=== PATIENT | female | born 1950 | race Caucasian/White ===

== ENCOUNTER 2016-07-12 10:20 | Emergency (ER) | payer OTHER ==
[2016-07-12 10:38] VITALS: PULSE 64; RESP 18
[2016-07-12] MEDS ORDERED: MORPHINE SULFATE 4 MG/ML SYRINGE IVP STA (11:42)
[2016-07-12] MEDS ORDERED: DIAZEPAM 5 MG TAB PO STA (11:42)
[2016-07-12 12:28] LABS: Basophils # (A) 0.1 k/uL (0-0.2); Basophils % (A) 1 %; CH 29.1; Eosinophils # (A) 0.1 k/uL (0-0.7); Eosinophils % (A) 1 %; HCT 41.9 % (34.0-46.0); HDW 2.85; HGB 12.8 gm/dL (11.4-16.0); Hypochromasia Slight; Luc # (Auto) 0.19; Luc % (Auto) 2; Lymphocytes # (A) 1.3 k/uL (1.0-4.8); Lymphocytes % (A) 12 %; MCH 28.9 pg (25.0-35.0); MCHC 30.6 g/dL (31.0-37.0); MCV 94.3 fL (80.0-100.0); Mean Platelet Volume 8.8; Monocytes # (A) 0.5 k/uL (0-1.0); Monocytes % (A) 4 %; Neutrophils # (A) 8.4 k/uL (1.3-7.7); Neutrophils % (A) 80 %; RBC 4.44 m/uL (3.80-5.40); RDW 15.1 % (11.5-15.5); WBC 10.6 k/uL (3.8-10.6); WBC (Perox) 9.88
[2016-07-12 12:43] LABS: Calcium 8.5 mg/dL (8.4-10.2); Potassium 5.6 mmol/L (3.5-5.1)
[2016-07-12] MEDS ORDERED: SODIUM CHLORIDE 0.9% 1,000 ML IV ONE (13:06)
--- NOTE | 2016-07-12 13:08 | XR ---
EXAM TYPE: LUMBAR SPINE X RAY SERIES COMPARISON: NONE HISTORY: Lower back pain TECHNIQUE: 3 views are submitted. FINDINGS: Alignment is anatomic. The pedicles are intact. The transverse processes are intact. There is no s pondylolysis or spondylolisthesis. Hypertrophic and degenerative change of the spine is seen at mult iple levels with vacuum disc. Slight curvature of the spine noted. IMPRESSION: 1. Severe multilevel degenerative disc disease.
--- NOTE | 2016-07-12 14:09 | CT ---
EXAMINATION TYPE: CT abdomen pelvis wo con DATE OF EXAM: 07/12/2016 1:54 PM HISTORY: Left flank pain R/O stone CT DLP: 1505 mGycm. Automated Exposure Control for Dose Reduction was Utilized. TECHNIQUE: CT scan of the abdomen and pelvis is performed without oral or IV contrast. COMPARISON: NONE FINDINGS: Within the limitations of a non-contrast study, the following observations are made. LUNG BASES: Dependent atelectatic change in both lung bases is present. LIVER/GB: No significant abnormality is appreciated. PANCREAS: No significant abnormality is seen. SPLEEN: No significant abnormality is seen. ADRENALS: No significant abnormality is seen. KIDNEYS: No renal stones or hydronephrosis is evident bilaterally. No intraluminal calculus in the bl adder is seen. BOWEL: Evaluation bowel is suboptimal due to lack of enteric contrast. There are some diverticula sca ttered throughout the colon. There is no CT evidence for acute diverticulitis. No suspicious small or large bowel dilatation is present. GENITAL ORGANS: No gross abnormality seen. LYMPH NODES: No greater than 1cm abdominal or pelvic lymph nodes are appreciated. OSSEOUS STRUCTURES: There is multilevel spurring in the thoracolumbar spine. There is multilevel vacu um disc phenomenon and disc space narrowing in the lumbar spine. OTHER: There is mild to moderate diffuse subcutaneous fluid in the anterior abdominal wall with mild skin thickening inferiorly, this may reflect product of patient's large body habitus, cellulitis shou ld be excluded clinically. IMPRESSION: No renal stones or hydronephrosis is seen bilaterally. No significant acute finding is se en to account for patient's symptoms on this study.
[2016-07-12 15:15] LABS: Calcium 7.8 mg/dL (8.4-10.2); Potassium 5.2 mmol/L (3.5-5.1)
--- NOTE | 2016-07-12 15:29 | ED ---
General Adult HPI - General Chief complaint: Back Pain/Injury Stated complaint: back pain Time Seen by Provider: 07/12/16 11:22 Source: patient, family, RN notes reviewed Mode of arrival: wheelchair Limitations: no limitations - History of Present Illness Initial comments: 65-year-old female presenting for left flank pain. Patient states that the symptoms past week and they seem to be worsening. She denies any fevers or chills. She denies any urinary complaints. She denies any history of kidney stones. She denies any chest pain or shortness of breath. She states she has tried some NSAIDs without relief of the pain. She denies any fall or injury. She does states she's had some diarrhea for the past several days as well. She denies any nausea or vomiting. - Related Data Home Medications Medication Instructions Recorded Confirmed Ferrous Sulfate [Feosol] 325 mg PO BID 07/14/14 07/12/16 Ranitidine HCl 150 mg PO BID 07/14/14 07/12/16 metFORMIN HCL 1,000 mg PO BID 07/14/14 07/12/16 Atorvastatin [Lipitor] 40 mg PO HS 09/28/15 07/12/16 Amiodarone [Cordarone] 200 mg PO DAILY 10/28/15 07/12/16 Nystatin 100,000Unit/gm Cream 1 applic TOPICAL BID 02/10/16 07/12/16 [Mycostatin Cream] Budesonide/Formoterol Fumarate 2 puff INHALATION RT-DAILY 04/02/16 07/12/16 [Symbicort 160-4.5 Mcg Inhaler] Insulin Glargine [Lantus] 40 unit SQ HS 04/02/16 07/12/16 Insulin Glulisine [Apidra Solostar] 8 unit SQ TID-W/MEALS 04/02/16 07/12/16 Lisinopril [Zestril] 5 mg PO DAILY 04/02/16 07/12/16 Loratadine [Claritin] 10 mg PO DAILY 04/02/16 07/12/16 Acetaminophen [Tylenol] 100 mg PO BID PRN 07/12/16 07/12/16 Furosemide [Lasix] 20 mg PO DAILY 07/12/16 07/12/16 Loperamide [Imodium] 2 mg PO DAILY PRN 07/12/16 07/12/16 Potassium Chloride ER [K-Dur 20] 20 meq PO DAILY 07/12/16 07/12/16 Warfarin [Coumadin] 3.75 mg PO HS 07/12/16 07/12/16 Previous Rx's Medication Instructions Recorded Metoprolol Tartrate [Lopressor] 50 mg PO BID #60 tab 10/08/15 Spironolactone [Aldactone] 25 mg PO DAILY #30 tab 10/08/15 Diazepam [Valium] 5 mg PO BID PRN #8 tab 07/12/16 HYDROcodone/APAP 5-325MG [[place] 1 tab PO Q6HR PRN #12 tab 07/12/16 5-325] Allergies Allergy/AdvReac Type Severity Reaction Status Date / Time No Known Allergies Allergy Verified 07/12/16 11:50 Review of Systems ROS Statement: Those systems with pertinent positive or pertinent negative responses have been documented in the HPI. ROS Other: All systems not noted in ROS Statement are negative. Past Medical History Past Medical History: Atrial Fibrillation, Asthma, Heart Failure, COPD, Diabetes Mellitus, GERD/Reflux, Hyperlipidemia, Hypertension, Pneumonia, Sleep Apnea/CPAP/BIPAP Additional Past Medical History / Comment(s): Unable to tolerate CPAP MACHINE, past acute respiratory failure, bronchitis, home o2 at 3L/NC at nite and if napping, cardiomyopathy, past hx Afib-cardioverted to NSR, IDDM type II, R upper extremity cellulitis now healed. History of Any Multi-Drug Resistant Organisms: None Reported Past Surgical History: Appendectomy, Cholecystectomy, Heart Catheterization Additional Past Surgical History / Comment(s): 11/03/15 TIMOTHY with cardioversion, cardiac cath, ROSANGELA CATARACTS Past Anesthesia/Blood Transfusion Reactions: No Reported Reaction Past Psychological History: No Psychological Hx Reported Additional Psychological History / Comment(s): PT LIVES AT [facility] IN [place],USES A WALKER WHEN OUTSIDE OF HER APT.STATED WANTED TO TALK TO MATERIAL EXPEDITER TO SEE IF SHE COULD GET digital scale. Pt does not drive. She gets to appts by daughter taking or using [employer] bus. She cooks and manages her own medication. She has home O2 and a glucose monitor which is not currently working due to battery depletion. Smoking Status: Never smoker Past Alcohol Use History: None Reported Additional Past Alcohol Use History / Comment(s): SECOND HAND SMOKE EXPOSURE ALL HER LIFE Past Drug Use History: None Reported - Past Family History Mother Family Medical History: Cancer Additional Family Medical History / Comment(s): SKIN AND LUNG CANCER "MESOTHELIOMA" Father Family Medical History: CVA/TIA General Exam - General Exam Comments Initial Comments: General: Awake and Alert. No acute distress. Does not appear acutely ill. Eyes: BEATRIZ, EOM intact. No nystagmus. No scleral icterus. HENT: Atraumatic, normocephalic. Mucous membranes moist. Trachea midline. Neck: The neck is supple, there is no tenderness or JVD. Cardiovascular: Regular rate and rhythm. No murmur, rub, or gallop is appreciated. Distal pulses intact. Respiratory: Lungs are clear to auscultation bilaterally. No wheezes, rales, rhonchi. No respiratory distress. Gastrointestinal: Soft, Nontender. No rebound or guarding. Non-distended. No masses or organomegaly noted. No CVA tenderness. Musculoskeletal: Tenderness over left flank left lower back. There is some spasm associated. Otherwise MSK exam with no tenderness. Normal ROM. No gross deformity. No strength deficits. Neurological: A&Ox3. CN II-XII grossly intact, There are no obvious motor or sensory deficits. Coordination appears grossly intact. Speech is normal. Skin: Skin is warm and dry and no rashes or lesions are noted. Psychiatric: Cooperative, appropriate mood & affect, normal judgment. Limitations: no limitations Course Vital Signs 07/12/16 07/12/16 10:34 15:40 Temperature 98.5 F 97.1 F L Pulse Rate 64 64 Respiratory 18 18 Rate Blood Pressure 124/60 128/71 O2 Sat by Pulse 93 L 95 Oximetry Medical Decision Making - Medical Decision Making 65-year-old female presenting for left flank and back pain. Exam consistent with likely musculoskeletal back pain. Given age and risk factors lab work ordered. Lumbar x-ray with chronic degenerative changes but no acute fractures. Lab work showing stable CBC. However BMP with multiple abnormalities including hyperkalemia and evidence of DOMO. Likely dehydration secondary to recent diarrhea. IV fluids ordered. Discussed further patient states she is on a potassium supplement. Repeat lab work performed after fluids with improved renal function and improved hyperkalemia. He is able to tolerate by mouth fluids without issue. CT abdomen and pelvis no acute process. Patient reevaluated and feeling improved after medications. Updated on results and imaging. Discussed elevated potassium and renal function, but improving trend at this time. Discussed staying well-hydrated. Discussed close follow- up with PCP for repeat lab testing within the next 2 days. Discussed stopping her potassium replacement at this time. As concerning signs symptoms for immediate return to the ED. patient is agreeable with plan and discharge home. - Lab Data Result diagrams: 07/12/16 12:10 07/12/16 14:52 Lab Results 07/12/16 07/12/16 07/12/16 Range/Units 12:10 12:10 14:52 WBC 10.6 (3.8-10.6) k/uL RBC 4.44 (3.80-5.40) m/uL Hgb 12.8 (11.4-16.0) gm/dL Hct 41.9 (34.0-46.0) % MCV 94.3 (80.0-100.0) fL MCH 28.9 (25.0-35.0) pg MCHC 30.6 L (31.0-37.0) g/dL RDW 15.1 (11.5-15.5) % Plt Count 215 (150-450) k/uL Neutrophils % 80 % Lymphocytes % 12 % Monocytes % 4 % Eosinophils % 1 % Basophils % 1 % Neutrophils # 8.4 H (1.3-7.7) k/uL Lymphocytes # 1.3 (1.0-4.8) k/uL Monocytes # 0.5 (0-1.0) k/uL Eosinophils # 0.1 (0-0.7) k/uL Basophils # 0.1 (0-0.2) k/uL Hypochromasia Slight Sodium 142 142 (137-145) mmol/L Potassium 5.6 H 5.2 H (3.5-5.1) mmol/L Chloride 108 H 112 H (98-107) mmol/L Carbon Dioxide 23 21 L (22-30) mmol/L Anion Gap 11 9 mmol/L BUN 44 H 40 H (7-17) mg/dL Creatinine 1.26 H 1.12 H (0.52-1.04) mg/dL Est GFR (MDRD) Af Amer 52 60 (>60 ml/min/1.73 sqM) Est GFR (MDRD) Non-Af 43 49 (>60 ml/min/1.73 sqM) Glucose 174 H 121 H (74-99) mg/dL Calcium 8.5 7.8 L (8.4-10.2) mg/dL - Radiology Data Radiology results: report reviewed, image reviewed Disposition Clinical Impression: Left flank pain, Diarrhea, Dehydration Disposition: HOME SELF-CARE Condition: Stable Instructions: Acute Low Back Pain (ED), Dehydration (ED), Acute Diarrhea (ED) Additional Instructions: Please follow up with your doctor in the next 3 days to repeat your kidney function and electrolytes. Make sure you drink plenty of fluids to stay well hydrated in the setting of your diarrhea. Please do not take your potassium tablets until you repeat your labs with your doctor. Prescriptions: Diazepam [Valium] 5 mg PO BID PRN #8 tab PRN Reason: back spasm HYDROcodone/APAP 5-325MG [[place] 5-325] 1 tab PO Q6HR PRN #12 tab PRN Reason: Pain Referrals: Dontae Quan DO [Primary Care Provider] - 1-2 days Time of Disposition: 15:28
[2016-07-12 15:42] VITALS: BP 128/71; TEMP 97.1
== END 2016-07-12 15:40 | disposition home or self-care (01) ==
LOC: EC 10:20
DX: E86.0 Dehydration (principal); R10.9 Unspecified abdominal pain; R19.7 Diarrhea, unspecified; I48.91 Unspecified atrial fibrillation; J45.909 Unspecified asthma, uncomplicated; I11.0 Hypertensive heart disease with heart failure; I50.9 Heart failure, unspecified; E11.9 Type 2 diabetes mellitus without complications; J44.9 Chronic obstructive pulmonary disease, unspecified; K21.9 Gastro-esophageal reflux disease without esophagitis; Z90.49 Acquired absence of other specified parts of digestive tract; Z79.4 Long term (current) use of insulin; Z79.01 Long term (current) use of anticoagulants; Z79.51 Long term (current) use of inhaled steroids; Z79.899 Other long term (current) drug therapy
CPT/HCPCS: 36415; 80048; 85025; 72100; 74176; 99284; 96374; J2270

== ENCOUNTER 2016-07-15 17:28 | Inpatient (IN) | payer OTHER ==
[2016-07-15] MEDS ORDERED: IPRATROPIUM-ALBUTEROL 3 ML NEB INHALATION STA (17:35)
--- NOTE | 2016-07-15 18:04 | ED ---
General Adult HPI - General Chief complaint: Shortness of Breath Stated complaint: tito, back pain Time Seen by Provider: 07/15/16 17:35 Source: patient Mode of arrival: wheelchair Limitations: no limitations - History of Present Illness Initial comments: This is a 65-year-old female ER for evaluation. The patient was assisted for evaluation of shortness of breath severe shortness of breath. Patient was recently in ER for chest pain. Patient has significant medical history of breathing disease including heart disease and COPD. Patient has no medications at all at this time. No travel history no sick contacts no fevers. She has had increased cough is having increased congestion does have increased pain in her back. - Related Data Home Medications Medication Instructions Recorded Confirmed Ferrous Sulfate [Feosol] 325 mg PO BID 07/14/14 07/15/16 Ranitidine HCl 150 mg PO BID 07/14/14 07/15/16 metFORMIN HCL 1,000 mg PO BID 07/14/14 07/15/16 Atorvastatin [Lipitor] 40 mg PO HS 09/28/15 07/15/16 Amiodarone [Cordarone] 200 mg PO DAILY 10/28/15 07/15/16 Nystatin 100,000Unit/gm Cream 1 applic TOPICAL BID 02/10/16 07/15/16 [Mycostatin Cream] Budesonide/Formoterol Fumarate 2 puff INHALATION RT-DAILY 04/02/16 07/15/16 [Symbicort 160-4.5 Mcg Inhaler] Insulin Glargine [Lantus] 40 unit SQ HS 04/02/16 07/15/16 Insulin Glulisine [Apidra Solostar] 8 unit SQ TID-W/MEALS 04/02/16 07/15/16 Lisinopril [Zestril] 5 mg PO DAILY 04/02/16 07/15/16 Loratadine [Claritin] 10 mg PO DAILY 04/02/16 07/15/16 Acetaminophen [Tylenol] 100 mg PO BID PRN 07/12/16 07/15/16 Furosemide [Lasix] 20 mg PO DAILY 07/12/16 07/15/16 Loperamide [Imodium] 2 mg PO DAILY PRN 07/12/16 07/15/16 Potassium Chloride ER [K-Dur 20] 20 meq PO DAILY 07/12/16 07/15/16 Warfarin [Coumadin] 3.75 mg PO HS 07/12/16 07/15/16 Previous Rx's Medication Instructions Recorded Metoprolol Tartrate [Lopressor] 50 mg PO BID #60 tab 10/08/15 Spironolactone [Aldactone] 25 mg PO DAILY #30 tab 10/08/15 Diazepam [Valium] 5 mg PO BID PRN #8 tab 07/12/16 HYDROcodone/APAP 5-325MG [Jacob 1 tab PO Q6HR PRN #12 tab 07/12/16 5-325] Allergies Allergy/AdvReac Type Severity Reaction Status Date / Time No Known Allergies Allergy Verified 07/15/16 17:33 Review of Systems ROS Statement: Those systems with pertinent positive or pertinent negative responses have been documented in the HPI. ROS Other: All systems not noted in ROS Statement are negative. Past Medical History Past Medical History: Atrial Fibrillation, Asthma, Heart Failure, COPD, Diabetes Mellitus, GERD/Reflux, Hyperlipidemia, Hypertension, Pneumonia, Sleep Apnea/CPAP/BIPAP Additional Past Medical History / Comment(s): Unable to tolerate CPAP MACHINE, past acute respiratory failure, bronchitis, home o2 at 3L/NC at nite and if napping, cardiomyopathy, past hx Afib-cardioverted to NSR, IDDM type II, R upper extremity cellulitis now healed. History of Any Multi-Drug Resistant Organisms: None Reported Past Surgical History: Appendectomy, Cholecystectomy, Heart Catheterization Additional Past Surgical History / Comment(s): 11/03/15 TIMOTHY with cardioversion, cardiac cath, ROSANGELA CATARACTS Past Anesthesia/Blood Transfusion Reactions: No Reported Reaction Past Psychological History: No Psychological Hx Reported Additional Psychological History / Comment(s): PT LIVES AT [facility] IN [place],USES A WALKER WHEN OUTSIDE OF HER APT.STATED WANTED TO TALK TO SHANK ARCHER TO SEE IF SHE COULD GET digital scale. Pt does not drive. She gets to appts by daughter taking or using [employer] bus. She cooks and manages her own medication. She has home O2 and a glucose monitor which is not currently working due to battery depletion. Smoking Status: Never smoker Past Alcohol Use History: None Reported Additional Past Alcohol Use History / Comment(s): SECOND HAND SMOKE EXPOSURE ALL HER LIFE Past Drug Use History: None Reported - Past Family History Mother Family Medical History: Cancer Additional Family Medical History / Comment(s): SKIN AND LUNG CANCER "MESOTHELIOMA" Father Family Medical History: CVA/TIA General Exam Limitations: no limitations General appearance: alert, in no apparent distress, obese Head exam: Present: atraumatic, normocephalic, normal inspection Eye exam: Present: normal appearance, PERRL, EOMI. Absent: scleral icterus, conjunctival injection, periorbital swelling ENT exam: Present: normal exam, mucous membranes moist Neck exam: Present: normal inspection. Absent: tenderness, meningismus, lymphadenopathy Respiratory exam: Present: normal lung sounds bilaterally, respiratory distress , wheezes, rales, accessory muscle use, decreased breath sounds, prolonged expiratory. Absent: rhonchi, stridor Cardiovascular Exam: Present: regular rate, normal rhythm, normal heart sounds. Absent: systolic murmur, diastolic murmur, rubs, gallop, clicks GI/Abdominal exam: Present: soft, normal bowel sounds. Absent: distended, tenderness, guarding, rebound, rigid Extremities exam: Present: normal inspection, full ROM, normal capillary refill. Absent: tenderness, pedal edema, joint swelling, calf tenderness Back exam: Present: normal inspection Neurological exam: Present: alert, oriented X3, CN II-XII intact Psychiatric exam: Present: normal affect, normal mood Skin exam: Present: warm, dry, intact, normal color. Absent: rash Course Vital Signs 07/15/16 07/15/16 07/15/16 17:31 18:20 18:30 Temperature 98.4 F Pulse Rate 69 68 70 Respiratory 14 Rate Blood Pressure 129/62 O2 Sat by Pulse 93 L Oximetry - Reevaluation(s) Reevaluation #1: 07/15/16 18:47 Patient does have improvement after prolonged breathing treatment EKG Findings - EKG Comments: EKG Findings:: EKG shows normal sinus rhythm rate 67, ND 160, QRS 122, QTc 460 Medical Decision Making - Medical Decision Making 65 female ER for evaluation shortness of breath. Increased cough and congestion. Exertional dyspnea. History of CHF history of COPD hypoxic here in the emergency room. Patient did improve with breathing treatment will be made for continued breathing treatments and further evaluation - Lab Data Result diagrams: 07/15/16 18:25 Lab Results 07/15/16 Range/Units 18:25 WBC 8.3 (3.8-10.6) k/uL RBC 4.40 (3.80-5.40) m/uL Hgb 12.6 (11.4-16.0) gm/dL Hct 40.5 (34.0-46.0) % MCV 92.2 (80.0-100.0) fL MCH 28.6 (25.0-35.0) pg MCHC 31.0 (31.0-37.0) g/dL RDW 14.8 (11.5-15.5) % Plt Count 240 (150-450) k/uL Neutrophils % 79 % Lymphocytes % 12 % Monocytes % 5 % Eosinophils % 2 % Basophils % 1 % Neutrophils # 6.5 (1.3-7.7) k/uL Lymphocytes # 1.0 (1.0-4.8) k/uL Monocytes # 0.4 (0-1.0) k/uL Eosinophils # 0.2 (0-0.7) k/uL Basophils # 0.0 (0-0.2) k/uL Hypochromasia Moderate - Radiology Data Radiology results: report reviewed (Chest x-ray shows no significant disease), image reviewed Critical Care Time Critical Care Time: Yes Total Critical Care Time: 31 Disposition Clinical Impression: Acute exacerbation of chronic obstructive airways disease, Acute pulmonary edema, Diabetes, Congestive heart failure, Back pain Disposition: ADMITTED IP TO THIS [facility] Condition: Fair Referrals: Dontae Quan DO [Primary Care Provider] - 1-2 days
[2016-07-15 18:34] LABS: Basophils % (A) 1 %; CH 28.6; CHCM 31.1; Eosinophils # (A) 0.2 k/uL (0-0.7); Eosinophils % (A) 2 %; HCT 40.5 % (34.0-46.0); HDW 2.98; HGB 12.6 gm/dL (11.4-16.0); Hypochromasia Moderate; Luc # (Auto) 0.12; Luc % (Auto) 2; Lymphocytes % (A) 12 %; MCH 28.6 pg (25.0-35.0); MCV 92.2 fL (80.0-100.0); Mean Platelet Volume 7.6; Monocytes # (A) 0.4 k/uL (0-1.0); Monocytes % (A) 5 %; Neutrophils # (A) 6.5 k/uL (1.3-7.7); Neutrophils % (A) 79 %; RDW 14.8 % (11.5-15.5); WBC 8.3 k/uL (3.8-10.6)
[2016-07-15] MEDS ORDERED: MORPHINE SULFATE 4 MG/ML SYRINGE IVP STA (18:44)
[2016-07-15] MEDS ORDERED: MORPHINE SULFATE 4 MG/ML SYRINGE IVP PRN (18:44)
[2016-07-15] MEDS ORDERED: methylPREDNISolone SOD SUCCI 125 MG/2 ML VIAL IV STA (18:44)
[2016-07-15 18:45] LABS: INR 2.3 (<1.1); Partial Thromboplastin Time 36.1 sec (22.0-30.0); Prothrombin Time 22.5 sec (9.0-12.0)
[2016-07-15 18:51] LABS: ALT 38 U/L (9-52); AST 36 U/L (14-36); Alkaline Phosphatase 109 U/L (38-126); Anion Gap 8 mmol/L; Blood Urea Nitrogen 23 mg/dL (7-17); Carbon Dioxide 26 mmol/L (22-30); Chloride 107 mmol/L (98-107); Creatine Kinase 384 U/L (30-135); Glucose 113 mg/dL (74-99); Magnesium 1.6 mg/dL (1.6-2.3); Non-African American GFR(MDRD) 56 (>60 ml/min/1.73 sqM); Potassium 5.5 mmol/L (3.5-5.1); Sodium 141 mmol/L (137-145); Total Bilirubin 0.7 mg/dL (0.2-1.3); Total Protein 6.3 g/dL (6.3-8.2)
[2016-07-15] MEDS: IPRATROPIUM-ALBUTEROL 3 ML NEB INHALATION SCH (18:51)
[2016-07-15 19:03] LABS: Troponin I <0.012 ng/mL (0.000-0.034)
[2016-07-15 19:06] LABS: Creatine Kinase MB 4.6 ng/mL (0.0-2.4)
--- NOTE | 2016-07-15 19:21 | XR ---
EXAMINATION TYPE: XR chest 2V DATE OF EXAM: 07/15/2016 7:14 PM COMPARISON: Prior chest x-ray four March 2016 HISTORY: Difficulty breathing, shortness of breath TECHNIQUE: Frontal and lateral views of the chest are obtained. FINDINGS: The heart is enlarged. Central vascularity and interstitium are increased. No pneumothorax or sizable effusion. IMPRESSION: Correlate for congestive heart failure
[2016-07-15] MEDS ORDERED: IPRATROPIUM-ALBUTEROL 3 ML NEB INHALATION PRN (20:19)
[2016-07-15 20:55] LABS: Glucose,Whole Blood 121 mg/dL (75-99)
[2016-07-16] MEDS: methylPREDNISolone SOD SUCCI 125 MG/2 ML VIAL IV SCH ×4 (00:39→17:23)
[2016-07-16] MEDS: SODIUM CHLORIDE 0.9% 1,000 ML IV SCH ×2 (00:40→19:51)
[2016-07-16] MEDS ORDERED: LOPERAMIDE 2 MG CAP PO PRN (06:51)
[2016-07-16] MEDS ORDERED: BACLOFEN 10 MG TAB PO PRN (06:51)
[2016-07-16] MEDS ORDERED: SYMBICORT 160-4.5 MCG INHALER INHALATION PRN (06:51)
[2016-07-16] MEDS ORDERED: ACETAMINOPHEN TAB 500 MG TAB PO PRN (06:51)
[2016-07-16 08:01] LABS: Glucose,Whole Blood 331 mg/dL (75-99)
[2016-07-16] MEDS: METOPROLOL TARTRATE 50 MG TAB PO SCH ×3 (08:47→22:00)
[2016-07-16] MEDS: AMIODARONE 200 MG TAB PO SCH (08:48)
[2016-07-16] MEDS: FUROSEMIDE 10 MG/ML 2 ML VIAL IV SCH ×2 (08:48→21:13)
[2016-07-16] MEDS: FERROUS SULFATE 325 MG TAB PO SCH ×2 (08:48→21:13)
[2016-07-16] MEDS: INSULIN LISPRO (humaLOG) 300 UNIT/3 ML VIAL SQ SCH ×2 (08:48→13:20)
[2016-07-16] MEDS: LORATADINE 10 MG TAB PO SCH (08:48)
[2016-07-16] MEDS: FAMOTIDINE 20 MG TAB PO SCH ×2 (08:48→21:13)
[2016-07-16] MEDS: IPRATROPIUM-ALBUTEROL 3 ML NEB INHALATION SCH ×4 (08:56→19:19)
[2016-07-16] MEDS ORDERED: SPIRONOLACTONE 25 MG TAB PO SCH (09:00)
[2016-07-16] MEDS ORDERED: LISINOPRIL 5 MG TAB PO SCH (09:00)
[2016-07-16 10:10] LABS: ALT 35 U/L (9-52); AST 31 U/L (14-36); Alkaline Phosphatase 113 U/L (38-126); Anion Gap 16 mmol/L; Blood Urea Nitrogen 31 mg/dL (7-17); Calcium 8.4 mg/dL (8.4-10.2); Carbon Dioxide 21 mmol/L (22-30); Chloride 103 mmol/L (98-107); Glucose 364 mg/dL (74-99); Non-African American GFR(MDRD) 56 (>60 ml/min/1.73 sqM); Sodium 140 mmol/L (137-145); Total Bilirubin 0.8 mg/dL (0.2-1.3); Total Protein 7.1 g/dL (6.3-8.2)
[2016-07-16 10:20] LABS: Basophils % (A) 0 %; CH 28.7; CHCM 29.7; Eosinophils % (A) 0 %; HCT 46.1 % (34.0-46.0); HDW 2.92; HGB 13.6 gm/dL (11.4-16.0); Hypochromasia Marked; Luc # (Auto) 0.03; Luc % (Auto) 0; Lymphocytes # (A) 0.5 k/uL (1.0-4.8); Lymphocytes % (A) 6 %; MCH 28.8 pg (25.0-35.0); MCHC 29.6 g/dL (31.0-37.0); Mean Platelet Volume 8.5; Monocytes # (A) 0.1 k/uL (0-1.0); Monocytes % (A) 1 %; Neutrophils # (A) 8.3 k/uL (1.3-7.7); Neutrophils % (A) 92 %; RBC 4.74 m/uL (3.80-5.40); RDW 14.8 % (11.5-15.5); WBC (Perox) 8.93
[2016-07-16 10:21] LABS: MCV 97.3 fL (80.0-100.0)
[2016-07-16 11:25] LABS: Glucose,Whole Blood 356 mg/dL (75-99)
[2016-07-16 11:46] LABS: Glucose,Whole Blood 327 mg/dL (75-99)
[2016-07-16] MEDS ORDERED: NALOXONE 0.4 MG/ML 1 ML VIAL IV PRN (12:10)
[2016-07-16 12:12] LABS: ABG PCO2 66 mmHg (35-45); ABG PH 7.19 (7.35-7.45)
[2016-07-16 12:13] LABS: ABG HCO3 24 mmol/L (21-25); ABG PO2 353 mmHg (83-108); ABG TCO2 26 mmol/L (19-24)
--- NOTE | 2016-07-16 12:23 | P.CNPUL ---
History of Present Illness Consult date: 07/16/16 Reason for consult: dyspnea History of present illness: I was asked to see Alia Nichols on a emergency basis because she was found to be hypoxic and in significant respiratory distress. I saw this patient on the medical surgical floor, fourth floor, and the patient was quite obtunded, lethargic and possibly CO2 narcosis. At the same time she was having prolonged apneas and these were obstructive apneas nontender the patient has severe obstructive sleep apnea with an AHI of 92 and she has been maintained on a BiPAP at a pressure of 22/80 cm of water on outpatient basis. She is also known to have bronchial asthma, valvular heart disease with a bicuspid aortic valve and CHF with an ejection fraction of 45%. Previous cardiac catheterization has shown normal coronaries. The patient is morbidly obese. She has approximately 2 fibrillation and she has been maintained on long-term articulation with warfarin. This patient was hospitalized yesterday because of increased shortness of breath. Apparently she had some increased back pain which restricted her mobility. Based on that, the patient was not taking her Lasix not to make herself go to the bathroom back and forth for urination. She apparently became progressively swollen and furthermore she started having increased dyspnea. She came into the emergency department yesterday for shortness of breath. She had also some increased cough and chest congestion. She was complaining of increased back pain. Her chest x-ray in the emergency department showed some CHF and cardiomegaly and increased central vascularity, her proBNP level was mildly elevated and the first set of cardiac enzyme was negative. The patient was placed on diuresis. The patient was placed on broken dilated and systemic steroids. She was admitted to the medical floor. MO this patient immediately to the intensive care unit. I put on a BiPAP. The blood gases were obtained and ICU showed a pH of 7.19 with a pCO2 of 66 and pO2 of 353 and this was done while the patient being on 100% nonrebreather facemask. Potassium level was noted to be elevated at 6.0. Blood sugars are also elevated at 364. The patient was arousable. Her neurologic exam was nonfocal and the patient was moving all 4 extremities without any limitation. Once left unstimulated, the patient would go back to sleep. Review of Systems ROS unobtainable: due to mental status Past Medical History Past Medical History: Atrial Fibrillation, Asthma, Heart Failure, COPD, Diabetes Mellitus, GERD/Reflux, Hyperlipidemia, Hypertension, Pneumonia, Sleep Apnea/CPAP/BIPAP Additional Past Medical History / Comment(s): Severe obstructive sleep apnea, with an apnea popping index of 92, titrated to a BiPAP pressure of 22/18 yet the patient has not been using her BiPAP machine on a regular basis, morbid obesity, bronchial asthma, approximately 2 fibrillation, bicuspid aortic valve, CHF with an ejection fraction of 45% based on a previous echocardiogram, diabetes mellitus, hyperlipidemia, GE reflux, hypertension, history of cellulitis of the lower extremities patient on the right it has recovered, History of Any Multi-Drug Resistant Organisms: None Reported Past Surgical History: Appendectomy, Cholecystectomy, Heart Catheterization Additional Past Surgical History / Comment(s): 11/03/15 TIMOTHY with cardioversion, cardiac cath, ROSANGELA CATARACTS Past Anesthesia/Blood Transfusion Reactions: No Reported Reaction Past Psychological History: No Psychological Hx Reported Additional Psychological History / Comment(s): PT LIVES AT [facility] IN [place],USES A WALKER WHEN OUTSIDE OF HER APT.STATED WANTED TO TALK TO AUTOPSY PATHOLOGIST TO SEE IF SHE COULD GET digital scale. Pt does not drive. She gets to appts by daughter taking or using [employer] bus. She cooks and manages her own medication. She has home O2 and a glucose monitor which is not currently working due to battery depletion. Smoking Status: Never smoker Past Alcohol Use History: None Reported Additional Past Alcohol Use History / Comment(s): SECOND HAND SMOKE EXPOSURE ALL HER LIFE Past Drug Use History: None Reported - Past Family History Mother Family Medical History: Cancer Additional Family Medical History / Comment(s): SKIN AND LUNG CANCER "MESOTHELIOMA" Father Family Medical History: CVA/TIA Medications and Allergies Home Medications Medication Instructions Recorded Confirmed Type Ferrous Sulfate [Feosol] 325 mg PO BID 07/14/14 07/15/16 History Ranitidine HCl 150 mg PO BID 07/14/14 07/15/16 History metFORMIN HCL 1,000 mg PO BID 07/14/14 07/15/16 History Atorvastatin [Lipitor] 40 mg PO HS 09/28/15 07/15/16 History Amiodarone [Cordarone] 200 mg PO DAILY 10/28/15 07/15/16 History Nystatin 100,000Unit/gm Cream 1 applic TOPICAL BID 02/10/16 07/15/16 History [Mycostatin Cream] Budesonide/Formoterol Fumarate 1 puff INHALATION RT-BID PRN 04/02/16 07/15/16 History [Symbicort 160-4.5 Mcg Inhaler] Insulin Glargine [Lantus] 40 unit SQ HS 04/02/16 07/15/16 History Insulin Glulisine [Apidra Solostar] 8 unit SQ TID-W/MEALS 04/02/16 07/15/16 History Lisinopril [Zestril] 5 mg PO DAILY 04/02/16 07/15/16 History Loratadine [Claritin] 10 mg PO DAILY 04/02/16 07/15/16 History Acetaminophen [Tylenol] 1,000 mg PO BID PRN 07/12/16 07/15/16 History Loperamide [Imodium] 2 mg PO BID PRN 07/12/16 07/15/16 History Warfarin [Coumadin] 3.75 mg PO HS 07/12/16 07/15/16 History Baclofen 10 mg PO Q8H PRN 07/15/16 07/15/16 History Furosemide [Lasix] 40 mg PO BID 07/15/16 07/15/16 History Levothyroxine Sodium [Synthroid] 25 mcg PO DAILY 07/16/16 07/16/16 History Allergies Allergy/AdvReac Type Severity Reaction Status Date / Time No Known Allergies Allergy Verified 07/15/16 19:07 Physical Exam Vitals: Vital Signs Temp Pulse Pulse Resp BP BP Pulse Ox 07/16/16 11:50 98.7 F 79 13 144/88 97 07/16/16 11:40 86 45 H 144/88 99 07/16/16 11:38 92 07/16/16 09:08 72 07/16/16 08:59 72 07/16/16 07:00 97.3 F L 91 18 139/76 91 L 07/15/16 23:00 97.0 F L 74 18 130/70 94 L 07/15/16 20:00 97.9 F 69 18 131/70 92 L 07/15/16 19:38 95 Intake and Output 07/15/16 07/16/16 07/16/16 22:59 06:59 14:59 Intake Total 20 Output Total 250 Balance -230 Intake: Intake, IV Titration 20 Amount Sodium Chloride 0.9% 1, 20 000 ml @ 20 mls/hr IV . Q24H [facility] Rx#:[id number] Output: Urine 250 Other: # Voids 1 1 Weight 125.645 kg 126.099 kg Patient is obtunded, lethargic, arousable. She would go to sleep if left unstimulated. While off the BiPAP machine the patient is having prolonged apneas which are essentially obstructive apneas and the patient obstructive completely while trying to breathe and move her chest wall muscles. She is using her chest wall and abdominal muscles to breathe.Head exam was generally normal. There was no scleral icterus or corneal arcus. Mucous membranes were moist. Neck is supple and the patient is significant crowding of the posterior oropharynx. There is a little neck masses. Lungs sounds are diminished and there is diminished breath sounds bilaterally especially lung bases along with some few scattered external wheeze.Cardiac exam revealed the PMI to be normally situated and sized. The rhythm was regular and no extrasystoles were noted during several minutes of auscultation. The first and second heart sounds were normal and physiologic splitting of the second heart sound was noted. There were no murmurs, rubs, clicks, or gallops. Abdomen is obese and orders cannot be accurately palpated. There is no direct tenderness. No rebound tenderness or guarding. Extremities show trace edema and there is no cyanosis or clubbing at this point. Results - Laboratory Findings CBC and BMP: 07/16/16 09:34 07/16/16 09:34 PT/INR, D-dimer PT 22.5 sec (9.0-12.0) H 07/15/16 18:25 INR 2.3 (<1.1) 07/15/16 18:25 Abnormal lab findings: Abnormal Labs 07/15/16 07/16/16 07/16/16 20:51 07:56 09:34 Hct 46.1 H MCHC 29.6 L Neutrophils # 8.3 H Lymphocytes # 0.5 L Potassium Carbon Dioxide BUN Glucose POC Glucose (mg/dL) 121 H 331 H 07/16/16 07/16/16 07/16/16 09:34 11:13 11:42 Hct MCHC Neutrophils # Lymphocytes # Potassium 6.0 H Carbon Dioxide 21 L BUN 31 H Glucose 364 H POC Glucose (mg/dL) 356 H 327 H - Diagnostic Findings Chest x-ray: image reviewed Assessment and Plan Plan: Assessment 1 acute hypercapnic respiratory failure with CO2 narcosis. This respiratory failure is multifactorial. Predominantly the patient has severe symptomatic obstructive sleep apnea baseline and in addition there is a component of fluid overload probably CHF as the patient's chest x-ray shows increased interstitial markings along with cardiomegaly. Superimposed pneumonia is felt to be less likely at this point although cannot be completely excluded 2 diminished level of consciousness secondary to above 3 severe obstructive sleep apnea with an AHI of 92, noncompliant to BiPAP therapy which is supposed to be at a pressure of 22/80 cm of water 4 morbid obesity 5 normal coronaries 6 proximal atrial fibrillation and patient's cardiac rhythm is sinus and the patient has been fully anticoagulate with warfarin 7 CHF with an ejection fraction of 45% 8 bicuspid aortic valve related to a previous TIMOTHY 9 previous cardioversion following a TIMOTHY to treat atrial fibrillation and the patient has been on amiodarone which has maintained this patient's cardiac rhythm is sinus 10 diabetes mellitus with poorly controlled blood sugars 11 hyperkalemia probably due to hyperglycemia, no EKG changes 12 chronic bronchial asthma 13 remote history of cellulitis of the lower extremities Plan Move the patient immediately to the intensive care unit. Put the patient a BiPAP at a pressure of 22/18 cm of water. Continue the bronchodilators. Continue diuresis. Continue systemic steroids as the patient may have an underlying asthmatic exacerbation addition to CHF. The patient will be placed on an insulin drip for blood sugar control and this will help also with a potassium levels. We'll monitor the patient's case very closely. May ultimately need intubation of the above-mentioned interventions failed to control her situation.
[2016-07-16] MEDS ORDERED: INSULIN REGULAR BOLUS (FROM DRIP BAG) IV PRN ×2 (12:26→12:43)
[2016-07-16] MEDS ORDERED: INSULIN LISPRO (humaLOG) 300 UNIT/3 ML VIAL SQ SCH (12:30)
[2016-07-16 12:33] LABS: Appearance,Urine Cloudy (Clear); Bacteria,Urine Many /hpf; Bilirubin,Urine Negative (Negative); Glucose,Urine (UA) 3+ (Negative); Hyphae Yeast, Urine Rare /hpf; Ketones,Urine Trace (Negative); Leukocyte Esterase,Urine Negative (Negative); Mucus,Urine Rare /hpf; Nitrite,Urine Negative (Negative); Particle Count 81046; Protein,Urine Trace (Negative); RBC,Urine 1 /hpf (0-5); Specific Gravity,Urine 1.009 (1.001-1.035); Squamous Epithelial Cell,Urine <1 /hpf (0-4); UA Billing (MACRO vs. MICRO) MICRO; Urobilinogen,Urine <2.0 mg/dL (<2.0); WBC,Urine 3 /hpf (0-5)
[2016-07-16 12:46] LABS: Magnesium 1.7 mg/dL (1.6-2.3); Phosphorous 5.6 mg/dL (2.5-4.5)
[2016-07-16] MEDS: INSULIN REGULAR 100 UNIT in SODIUM CHLORIDE 0.9% 100 ML IV SCH (13:21)
[2016-07-16 13:23] LABS: Glucose,Whole Blood 385 mg/dL (75-99)
[2016-07-16] MEDS: ENOXAPARIN 40 MG/0.4 ML SYRINGE SQ SCH (13:28)
[2016-07-16 13:44] LABS: Glucose,Whole Blood 368 mg/dL (75-99)
[2016-07-16 14:10] LABS: Glucose,Whole Blood 302 mg/dL (75-99)
[2016-07-16 14:32] LABS: Glucose,Whole Blood 292 mg/dL (75-99)
[2016-07-16 14:44] LABS: Calcium 8.5 mg/dL (8.4-10.2); Potassium 5.6 mmol/L (3.5-5.1)
[2016-07-16 15:13] LABS: Glucose,Whole Blood 280 mg/dL (75-99)
[2016-07-16 15:36] LABS: Glucose,Whole Blood 240 mg/dL (75-99)
[2016-07-16 15:45] LABS: ABG Base Excess -0.4 mmol/L; ABG HCO3 26 mmol/L (21-25); ABG PCO2 60 mmHg (35-45); ABG PH 7.26 (7.35-7.45); ABG PO2 180 mmHg (83-108); ABG TCO2 28 mmol/L (19-24)
[2016-07-16 16:32] LABS: Glucose,Whole Blood 233 mg/dL (75-99)
[2016-07-16] MEDS: PIPERACILLIN-TAZOBACTAM 3.375 GM in DEXTROSE/WATER 1 50ML.BAG IVPB SCH (16:32)
[2016-07-16 17:41] LABS: Glucose,Whole Blood 203 mg/dL (75-99)
[2016-07-16 18:46] LABS: Glucose,Whole Blood 185 mg/dL (75-99)
[2016-07-16] MEDS: FORMOTEROL FUMARATE 20 MCG/2 ML NEBU INHALATION SCH (19:19)
[2016-07-16] MEDS: BUDESONIDE 0.5 MG/2 ML NEBU INHALATION SCH (19:19)
[2016-07-16 20:00] LABS: Glucose,Whole Blood 180 mg/dL (75-99)
[2016-07-16] MEDS ORDERED: INSULIN GLARGINE 100 UNIT/ML 10 ML VIAL SQ SCH (21:00)
[2016-07-16] MEDS: ATORVASTATIN 40 MG TAB PO SCH (21:13)
[2016-07-16] MEDS: WARFARIN 7.5 MG TAB PO SCH (21:14)
[2016-07-16 22:09] LABS: Glucose,Whole Blood 192 mg/dL (75-99)
[2016-07-16 23:23] LABS: Glucose,Whole Blood 173 mg/dL (75-99)
[2016-07-17] MEDS: methylPREDNISolone SOD SUCCI 125 MG/2 ML VIAL IV SCH ×2 (00:28→06:43)
[2016-07-17] MEDS: PIPERACILLIN-TAZOBACTAM 3.375 GM in DEXTROSE/WATER 1 50ML.BAG IVPB SCH ×3 (00:28→16:01)
[2016-07-17 00:40] LABS: Glucose,Whole Blood 155 mg/dL (75-99)
[2016-07-17] MEDS: INSULIN REGULAR 100 UNIT in SODIUM CHLORIDE 0.9% 100 ML IV SCH ×3 (00:41→19:59)
[2016-07-17 02:00] LABS: Glucose,Whole Blood 125 mg/dL (75-99)
[2016-07-17 03:05] LABS: Glucose,Whole Blood 141 mg/dL (75-99)
[2016-07-17 04:05] LABS: Glucose,Whole Blood 134 mg/dL (75-99)
[2016-07-17 05:04] LABS: Basophils % (A) 0 %; CH 28.5; CHCM 30.6; Eosinophils % (A) 0 %; HCT 39.4 % (34.0-46.0); Hypochromasia Moderate; Luc # (Auto) 0.02; Luc % (Auto) 0; Lymphocytes # (A) 0.5 k/uL (1.0-4.8); Lymphocytes % (A) 4 %; MCH 28.6 pg (25.0-35.0); MCHC 30.5 g/dL (31.0-37.0); MCV 93.6 fL (80.0-100.0); Mean Platelet Volume 7.2; Monocytes # (A) 0.3 k/uL (0-1.0); Monocytes % (A) 2 %; Neutrophils # (A) 12.5 k/uL (1.3-7.7); Neutrophils % (A) 94 %; RBC 4.21 m/uL (3.80-5.40); RDW 14.7 % (11.5-15.5); WBC 13.3 k/uL (3.8-10.6); WBC (Perox) 13.99
[2016-07-17 05:07] LABS: INR 2.5 (<1.1); Prothrombin Time 23.7 sec (9.0-12.0)
[2016-07-17 05:09] LABS: Glucose,Whole Blood 152 mg/dL (75-99)
[2016-07-17 05:15] LABS: Anion Gap 9 mmol/L; Blood Urea Nitrogen 39 mg/dL (7-17); Calcium 8.8 mg/dL (8.4-10.2); Carbon Dioxide 26 mmol/L (22-30); Chloride 109 mmol/L (98-107); Glucose 146 mg/dL (74-99); Magnesium 1.9 mg/dL (1.6-2.3); Non-African American GFR(MDRD) 50 (>60 ml/min/1.73 sqM); Phosphorous 3.4 mg/dL (2.5-4.5); Potassium 4.8 mmol/L (3.5-5.1); Sodium 144 mmol/L (137-145)
[2016-07-17] MEDS ORDERED: Magnesium Replacement Protocol 1 EACH MISC MISCELLANE PRN (05:38)
[2016-07-17] MEDS: MAGNESIUM SULFATE-D5W PMX 1 GM in DEXTROSE/WATER 1 100ML.BAG IVPB SCH ×2 (06:01→07:38)
[2016-07-17 06:06] LABS: Glucose,Whole Blood 181 mg/dL (75-99)
[2016-07-17 07:04] LABS: Glucose,Whole Blood 161 mg/dL (75-99)
--- NOTE | 2016-07-17 07:27 | XR ---
EXAMINATION TYPE: XR chest 1V DATE OF EXAM: 07/17/2016 6:40 AM CLINICAL HISTORY: Difficulty breathing progress study. TECHNIQUE: Single AP portable semiupright right view of the chest is obtained. COMPARISON: Chest x-ray from 2 days earlier FINDINGS: Exam is suboptimal due to portable technique and patient's large body habitus. There is pe rsisting cardiomegaly. Diminished visualization left lung base is felt projectional though is subopti magalie evaluated. Right lung remains clear. Improved central vascular congestion is felt present. Osse ous structures are intact. IMPRESSION: Suboptimal study, there is cardiomegaly with suspected improving central vascular congest ion and no definitive new focal infiltrate present.
[2016-07-17] MEDS: IPRATROPIUM-ALBUTEROL 3 ML NEB INHALATION SCH ×4 (08:00→19:55)
[2016-07-17] MEDS: FORMOTEROL FUMARATE 20 MCG/2 ML NEBU INHALATION SCH ×2 (08:00→19:55)
[2016-07-17] MEDS: BUDESONIDE 0.5 MG/2 ML NEBU INHALATION SCH ×2 (08:00→19:55)
[2016-07-17 08:37] LABS: Glucose,Whole Blood 156 mg/dL (75-99)
[2016-07-17] MEDS: ENOXAPARIN 40 MG/0.4 ML SYRINGE SQ SCH (08:46)
[2016-07-17] MEDS: AMIODARONE 200 MG TAB PO SCH (08:46)
[2016-07-17] MEDS: FUROSEMIDE 10 MG/ML 2 ML VIAL IV SCH ×2 (08:46→20:00)
[2016-07-17] MEDS: FERROUS SULFATE 325 MG TAB PO SCH ×2 (08:47→20:45)
[2016-07-17] MEDS: LORATADINE 10 MG TAB PO SCH (08:47)
[2016-07-17] MEDS: METOPROLOL TARTRATE 50 MG TAB PO SCH ×2 (08:47→20:45)
[2016-07-17] MEDS: FAMOTIDINE 20 MG TAB PO SCH (08:47)
[2016-07-17] MEDS ORDERED: methylPREDNISolone SOD SUCCI 125 MG/2 ML VIAL IV SCH (09:01)
[2016-07-17 09:06] LABS: Hemoglobin A1C 7.1 % (4.2-6.1)
[2016-07-17 09:07] LABS: Glucose,Whole Blood 176 mg/dL (75-99)
[2016-07-17 10:02] LABS: Glucose,Whole Blood 208 mg/dL (75-99)
[2016-07-17 11:05] LABS: Glucose,Whole Blood 220 mg/dL (75-99)
--- NOTE | 2016-07-17 11:58 | HP ---
DATE OF ADMISSION: 07/15/2016 This is a 65-year-old female, the patient is a 65 -year-old female came in with complaints of shortness of breath and the patient was ( ). The patient was admitted to the hospital to the ICU probably due to ( ) narcosis. Patient has severe obstructive sleep apnea, uses ( ) BIPAP settings of 22 and 8 cm of water on an outpatient basis, is admitted for acute hypoxic respiratory failure, ( ) heart failure as well, admitted for ( ). The patient today was found to be in CHF exacerbation . Patient has start on IV Lasix. The patient continues to be on BIPAP at this point in time. ( ) respiratory issues and the patient has stopped taking Lasix recently because of restricted mobility. The patient is morbidly obese. Does have significant respiratory lung disease as well and probable obesity hypoventilation syndrome. Pro-BNP level otherwise minimally elevated and chest x-ray did show central venous congestion. The patient was also started on bronchodilators and systemic steroids and may not have much benefit. The patient on exam appears to have rhonchorous breath sounds. The patient is presently, saturating well. On BiPAP I am unable to get much history because the patient is on BIPAP at this time. The other issues being hypokalemia because of which ( ). We will repeat another potassium level and see it if it still elevated, depending on elevation, we will ( ) just Kayexelate or another cocktail regimen for ( ) elevated potassium ( ) insulin calcium gluconate along with Kayexelate. Review of systems unable to obtain because of medical condition. Past medical history significant for atrial fibrillation with severe asthma, congestive heart failure, chronic systolic dysfunction, ( ) ejection fraction of about 45%, hyperlipidemia, hypertension and sleep apnea uses ( ) at home. Past surgical history of appendectomy, cholecystectomy, cardiac catheterization, ( ) TIMOTHY with cardioversion in the past, bilateral cataracts. SOCIAL HISTORY: The patient never a smoker. Denied any alcohol abuse or any drug abuse. FAMILY HISTORY: Mother had cancer, lung cancer ( ). PHYSICAL EXAMINATION: Temperature 98.7, pulse 79, respiratory rate 13, blood pressure 145/82. Saturating at 97% on BIPAP. GENERAL: morbidly obese, patient is arousable, unable to assess orientation. HEENT: Pupils are round and equally reacting to light. EOMI. No scleral icterus. No conjunctival pallor. Normocephalic, atraumatic. No pharyngeal erythema. No thyromegaly. CARDIOVASCULAR: S1 and S2 present. Unable to assess jugular venous distention ( ), the patient is on BIPAP. PULMONARY: Lung examination revealed bilateral rhonchorous breath sounds, ( ) bilateral lung rick. ABDOMEN: Soft, nontender, nondistended, normoactive bowel sounds. No palpable organomegaly. MUSCULOSKELETAL: No joint swelling or deformity. EXTREMITIES: No cyanosis, clubbing, or pedal edema. NEUROLOGICAL: Unable to assess because of her medical condition, although patient does not appear to have any focal deficits at this point of time. Moving all 4 limbs. Home medications: 1. Ferrous sulfate. 2. Ranitidine. 3. Metformin. 4. Atorvastatin. 5. Amiodarone. 6. Nystatin. 7. Budesonide. 8. Formoterol. 9. Lantus. 10. Lisinopril. 11. Loratadine. 12. Acetaminophen. 13. Loperamide. 14. Coumadin. 15. Baclofen. 16. Lasix. 17. Levothyroxine. ASSESSMENT AND PLAN: 1. Hypercapnic respiratory failure leading to ( ) and metabolic encephalopathy secondary to that. 2. Respiratory failure is multifactorial, the patient will probably ( ) hypoxic ( ). Patient is on BiPAP at this point of time. The patient is on Lasix ( ) acute respiratory failure. 3. Patient is morbidly obese ( ). 4. Pulmonary hypertension ( ) echocardiogram. 5. Toxic metabolic encephalopathy. 6. Obstructive sleep apnea. Continue with BiPAP. 7. Obstructive lung disease. 8. Congestive heart failure, chronic systolic dysfunction with acute exacerbation. 9. Diabetes mellitus type 2. 10. Hyperkalemia. 11. Hyperkalemia management as mentioned above. 12. Bronchial asthma. 13. Morbid obesity. PLAN: As mentioned in the history itself. Continue with respiratory support. Patient is on antibiotics at this point of time. ( ). Antibiotics probably can be discontinued. My suspicion is extremely low for pneumonia. ( ) exacerbation , superimposed on ( ) obstructive lung disease, obstructive sleep apnea and obesity hypoventilation syndrome made her go into severe respiratory failure.
[2016-07-17 12:10] LABS: Glucose,Whole Blood 198 mg/dL (75-99)
--- NOTE | 2016-07-17 13:51 | CDI ---
In responding to this query, please exercise your independent professional judgment. The [facility] Coding Staff and Clinical Documentation Specialists appreciate your assistance in clarifying documentation, maintaining compliance with coding guidelines, accurately documenting patients condition and capturing severity of illness. The fact that a question is asked does not imply that any particular answer is desired or expected. Communication forms are a method of clarifying documentation and are not made part of the Legal Health Record. Thank you in advance for your clarification. Last Revision, June 2015 Kayley Zavaleta [address] [address] Documentation Clarification Form Date: 07/17/2016 1:20:00 PM From: Glendy Lei Admit Date: 07/15/2016 6:45:00 PM Patient Name: Bindu Nichols Visit Number: [id number] Discharge Date: Dr. Anton Azevedo/Gaby Soliz [facility]ENDER-C Asthma is documented in the consult and progress notes. Patient history/risk factors: Asthma, Atrial Fibrillation, Heart failure, COPD, Diabetes mellitus type 2, hypertension, Sleep Apnea/CPAP/BIPAP, Clinical Indicators: ER with severe shortness of breath, increased cough, congestion. Chest x-ray: correlate for CHF Vital Signs on admission: 129/62 69 14 98.4, 93 % RA Other Clinical Indicators: 07/16/16: Patient had mental status changes, was obtunded, lethargic and having prolonged apnea . Treatment: BIPAP (monitor and titrate O2) Solu-Medrol IV (taper) Bronchodilator Lasix IV Zosyn IV In your professional opinion, can you please further specify the following, if known? Chronic Bronchial Asthma With: Acute Exacerbation Status asthmaticus Acute lower respiratory infection COPD (specify with or without exacerbation) Chronic obstructive bronchitis Other, please specify Unable to determine Severity Mild intermittent Mild persistent Moderate persistent Severe persistent Other, please specify Unable to determine Form or Type Cough variant Childhood Exercise induced bronchospasm Extrinsic allergic Idiosyncratic Intrinsic nonallergic Late-onset Mixed Other, please specify Unable to determine Please document in your progress notes in order to capture severity of illness and risk of mortality. FYI: Press F11 to launch patient chart. Place X here if this finding has no clinical significance, is not applicable or if you are not able to provide any additional documentation. MTDD
[2016-07-17 14:22] LABS: Glucose,Whole Blood 280 mg/dL (75-99)
--- NOTE | 2016-07-17 15:28 | P.PN ---
Subjective Principal diagnosis: Acute hypoxic and hypercapnic respiratory failure I was asked to see Alia Nichols on a emergency basis because she was found to be hypoxic and in significant respiratory distress. I saw this patient on the medical surgical floor, fourth floor, and the patient was quite obtunded, lethargic and possibly CO2 narcosis. At the same time she was having prolonged apneas and these were obstructive apneas nontender the patient has severe obstructive sleep apnea with an AHI of 92 and she has been maintained on a BiPAP at a pressure of 22/80 cm of water on outpatient basis. She is also known to have bronchial asthma, valvular heart disease with a bicuspid aortic valve and CHF with an ejection fraction of 45%. Previous cardiac catheterization has shown normal coronaries. The patient is morbidly obese. She has approximately 2 fibrillation and she has been maintained on long-term articulation with warfarin. This patient was hospitalized yesterday because of increased shortness of breath. Apparently she had some increased back pain which restricted her mobility. Based on that, the patient was not taking her Lasix not to make herself go to the bathroom back and forth for urination. She apparently became progressively swollen and furthermore she started having increased dyspnea. She came into the emergency department yesterday for shortness of breath. She had also some increased cough and chest congestion. She was complaining of increased back pain. Her chest x-ray in the emergency department showed some CHF and cardiomegaly and increased central vascularity, her proBNP level was mildly elevated and the first set of cardiac enzyme was negative. The patient was placed on diuresis. The patient was placed on broken dilated and systemic steroids. She was admitted to the medical floor. Moved this patient immediately to the intensive care unit. I put on a BiPAP. The blood gases were obtained and ICU showed a pH of 7.19 with a pCO2 of 66 and pO2 of 353 and this was done while the patient being on 100% nonrebreather facemask. Potassium level was noted to be elevated at 6.0. Blood sugars are also elevated at 364. The patient was arousable. Her neurologic exam was nonfocal and the patient was moving all 4 extremities without any limitation. Once left unstimulated, the patient would go back to sleep. Patient was reevaluated today on 07/17/2016, she seems to be doing quite well. Patient is now on nasal cannula, off BiPAP, and she is sitting in bed, eating, alert oriented 3, in no form of distress. CBC was reviewed ABG from yesterday was reviewed and clearly reflected hypercapnic respiratory failure basic metabolic profile from today was also reviewed showing a bicarb level of 26 hence her hypercapnia is relatively acute and not chronic. Objective - Vital Signs Vital signs: Vital Signs Temp 97.6 F 07/17/16 12:00 Pulse 69 07/17/16 14:00 Resp 17 07/17/16 14:00 BP 114/53 07/17/16 14:00 Pulse Ox 96 07/17/16 14:00 Intake & Output 07/16/16 07/17/16 07/17/16 18:59 06:59 18:59 Intake Total 227.367 287.166 337.024 Output Total 550 940 500 Balance -322.633 -652.834 -162.976 Weight 123 kg Intake: Intake, IV Titration 227.367 287.166 337.024 Amount Insulin Regular 100 unit 77.367 47.166 29.441 In Sodium Chloride 0.9% 100 ml @ Per Protocol IV .Q0M AIDA Rx#:[id number] Insulin Regular 100 unit 17.583 In Sodium Chloride 0.9% 100 ml @ Titrate IV .Q0M A[facility] Rx#:[id number] Magnesium Sulfate-D5w Pmx 100 1 gm In Dextrose/Water 1 100ml.bag @ 100 mls/hr IVPB Q1H A[facility] Rx#: [id number] Piperacillin-Tazobactam 3 50 100.0 50.0 .375 gm In Dextrose/Water 1 50ml.bag @ 12.5 mls/hr IVPB Q8HR AIDA Rx#: [id number] Sodium Chloride 0.9% 1, 100 140 140 000 ml @ 20 mls/hr IV . Q24H AIDA Rx#:[id number] Output: Urine 550 940 500 Other: Voiding Method Indwelling Catheter Indwelling Catheter Indwelling Catheter - Exam Physical Exam: Revealed a 65-year-old female in no distress, obese, sitting in bed eating, on nasal cannula. HEENT:[Neck is supple.] [No neck masses.] [No thyromegaly.] [No JVD.] Chest: [Diminished breath sounds at the bases no crackles or rhonchi or wheezes. ] Cardiac Exam: [Normal S1 and S2, no S3 gallop, no murmur.] Abdomen: [Soft, nontender, no megaly, no rebound, no guarding, normal bowel sounds.] Extremities: [No clubbing, no edema, no cyanosis.] Neurological Exam: [No focal neurologic deficit.] - Labs CBC & Chem 7: 07/17/16 04:09 07/17/16 04:09 Labs: Abnormal Lab Results - Last 24 Hours (Table) 07/16/16 07/16/16 07/16/16 Range/Units 09:34 15:36 15:37 WBC (3.8-10.6) k/uL MCHC (31.0-37.0) g/dL Neutrophils # (1.3-7.7) k/uL Lymphocytes # (1.0-4.8) k/uL PT (9.0-12.0) sec ABG pH 7.26 L (7.35-7.45) ABG pCO2 60 H (35-45) mmHg ABG pO2 180 H (83-108) mmHg ABG HCO3 26 H (21-25) mmol/L ABG Total CO2 28 H (19-24) mmol/L ABG O2 Saturation 99.0 H (94-97) % Chloride (98-107) mmol/L BUN (7-17) mg/dL Creatinine (0.52-1.04) mg/dL Glucose (74-99) mg/dL POC Glucose (mg/dL) 240 H (75-99) mg/dL Hemoglobin A1c 7.1 H (4.2-6.1) % 07/16/16 07/16/16 07/16/16 Range/Units 16:30 17:39 18:44 WBC (3.8-10.6) k/uL MCHC (31.0-37.0) g/dL Neutrophils # (1.3-7.7) k/uL Lymphocytes # (1.0-4.8) k/uL PT (9.0-12.0) sec ABG pH (7.35-7.45) ABG pCO2 (35-45) mmHg ABG pO2 (83-108) mmHg ABG HCO3 (21-25) mmol/L ABG Total CO2 (19-24) mmol/L ABG O2 Saturation (94-97) % Chloride (98-107) mmol/L BUN (7-17) mg/dL Creatinine (0.52-1.04) mg/dL Glucose (74-99) mg/dL POC Glucose (mg/dL) 233 H 203 H 185 H (75-99) mg/dL Hemoglobin A1c (4.2-6.1) % 07/16/16 07/16/16 07/16/16 Range/Units 19:58 22:07 23:19 WBC (3.8-10.6) k/uL MCHC (31.0-37.0) g/dL Neutrophils # (1.3-7.7) k/uL Lymphocytes # (1.0-4.8) k/uL PT (9.0-12.0) sec ABG pH (7.35-7.45) ABG pCO2 (35-45) mmHg ABG pO2 (83-108) mmHg ABG HCO3 (21-25) mmol/L ABG Total CO2 (19-24) mmol/L ABG O2 Saturation (94-97) % Chloride (98-107) mmol/L BUN (7-17) mg/dL Creatinine (0.52-1.04) mg/dL Glucose (74-99) mg/dL POC Glucose (mg/dL) 180 H 192 H 173 H (75-99) mg/dL Hemoglobin A1c (4.2-6.1) % 07/17/16 07/17/16 07/17/16 Range/Units 00:39 01:59 03:03 WBC (3.8-10.6) k/uL MCHC (31.0-37.0) g/dL Neutrophils # (1.3-7.7) k/uL Lymphocytes # (1.0-4.8) k/uL PT (9.0-12.0) sec ABG pH (7.35-7.45) ABG pCO2 (35-45) mmHg ABG pO2 (83-108) mmHg ABG HCO3 (21-25) mmol/L ABG Total CO2 (19-24) mmol/L ABG O2 Saturation (94-97) % Chloride (98-107) mmol/L BUN (7-17) mg/dL Creatinine (0.52-1.04) mg/dL Glucose (74-99) mg/dL POC Glucose (mg/dL) 155 H 125 H 141 H (75-99) mg/dL Hemoglobin A1c (4.2-6.1) % 07/17/16 07/17/16 07/17/16 Range/Units 04:02 04:09 04:09 WBC 13.3 H (3.8-10.6) k/uL MCHC 30.5 L (31.0-37.0) g/dL Neutrophils # 12.5 H (1.3-7.7) k/uL Lymphocytes # 0.5 L (1.0-4.8) k/uL PT 23.7 H (9.0-12.0) sec ABG pH (7.35-7.45) ABG pCO2 (35-45) mmHg ABG pO2 (83-108) mmHg ABG HCO3 (21-25) mmol/L ABG Total CO2 (19-24) mmol/L ABG O2 Saturation (94-97) % Chloride (98-107) mmol/L BUN (7-17) mg/dL Creatinine (0.52-1.04) mg/dL Glucose (74-99) mg/dL POC Glucose (mg/dL) 134 H (75-99) mg/dL Hemoglobin A1c (4.2-6.1) % 07/17/16 07/17/16 07/17/16 Range/Units 04:09 05:06 06:04 WBC (3.8-10.6) k/uL MCHC (31.0-37.0) g/dL Neutrophils # (1.3-7.7) k/uL Lymphocytes # (1.0-4.8) k/uL PT (9.0-12.0) sec ABG pH (7.35-7.45) ABG pCO2 (35-45) mmHg ABG pO2 (83-108) mmHg ABG HCO3 (21-25) mmol/L ABG Total CO2 (19-24) mmol/L ABG O2 Saturation (94-97) % Chloride 109 H (98-107) mmol/L BUN 39 H (7-17) mg/dL Creatinine 1.10 H (0.52-1.04) mg/dL Glucose 146 H (74-99) mg/dL POC Glucose (mg/dL) 152 H 181 H (75-99) mg/dL Hemoglobin A1c (4.2-6.1) % 07/17/16 07/17/16 07/17/16 Range/Units 07:03 08:24 09:06 WBC (3.8-10.6) k/uL MCHC (31.0-37.0) g/dL Neutrophils # (1.3-7.7) k/uL Lymphocytes # (1.0-4.8) k/uL PT (9.0-12.0) sec ABG pH (7.35-7.45) ABG pCO2 (35-45) mmHg ABG pO2 (83-108) mmHg ABG HCO3 (21-25) mmol/L ABG Total CO2 (19-24) mmol/L ABG O2 Saturation (94-97) % Chloride (98-107) mmol/L BUN (7-17) mg/dL Creatinine (0.52-1.04) mg/dL Glucose (74-99) mg/dL POC Glucose (mg/dL) 161 H 156 H 176 H (75-99) mg/dL Hemoglobin A1c (4.2-6.1) % 07/17/16 07/17/16 07/17/16 Range/Units 10:00 11:04 12:07 WBC (3.8-10.6) k/uL MCHC (31.0-37.0) g/dL Neutrophils # (1.3-7.7) k/uL Lymphocytes # (1.0-4.8) k/uL PT (9.0-12.0) sec ABG pH (7.35-7.45) ABG pCO2 (35-45) mmHg ABG pO2 (83-108) mmHg ABG HCO3 (21-25) mmol/L ABG Total CO2 (19-24) mmol/L ABG O2 Saturation (94-97) % Chloride (98-107) mmol/L BUN (7-17) mg/dL Creatinine (0.52-1.04) mg/dL Glucose (74-99) mg/dL POC Glucose (mg/dL) 208 H 220 H 198 H (75-99) mg/dL Hemoglobin A1c (4.2-6.1) % 07/17/16 Range/Units 14:21 WBC (3.8-10.6) k/uL MCHC (31.0-37.0) g/dL Neutrophils # (1.3-7.7) k/uL Lymphocytes # (1.0-4.8) k/uL PT (9.0-12.0) sec ABG pH (7.35-7.45) ABG pCO2 (35-45) mmHg ABG pO2 (83-108) mmHg ABG HCO3 (21-25) mmol/L ABG Total CO2 (19-24) mmol/L ABG O2 Saturation (94-97) % Chloride (98-107) mmol/L BUN (7-17) mg/dL Creatinine (0.52-1.04) mg/dL Glucose (74-99) mg/dL POC Glucose (mg/dL) 280 H (75-99) mg/dL Hemoglobin A1c (4.2-6.1) % Assessment and Plan Plan: 1 acute hypercapnic respiratory failure with CO2 narcosis. This respiratory failure is multifactorial. Predominantly the patient has severe symptomatic obstructive sleep apnea baseline and in addition there is a component of fluid overload probably CHF as the patient's chest x-ray shows increased interstitial markings along with cardiomegaly. Superimposed pneumonia is felt to be less likely at this point although cannot be completely excluded. In addition to all of this, patient was receiving narcotics and baclofen which may have been a contributing factor to her CO2 narcosis. 2 diminished level of consciousness secondary to above 3 severe obstructive sleep apnea with an AHI of 92, noncompliant to BiPAP therapy which is supposed to be at a pressure of 22/80 cm of water 4 morbid obesity 5 normal coronaries 6 proximal atrial fibrillation and patient's cardiac rhythm is sinus and the patient has been fully anticoagulate with warfarin 7 CHF with an ejection fraction of 45% 8 bicuspid aortic valve related to a previous TIMOTHY 9 previous cardioversion following a TIMOTHY to treat atrial fibrillation and the patient has been on amiodarone which has maintained this patient's cardiac rhythm is sinus 10 diabetes mellitus with poorly controlled blood sugars 11 hyperkalemia probably due to hyperglycemia, no EKG changes 12 chronic bronchial asthma 13 remote history of cellulitis of the lower extremities Recommendation: Continue present treatment plan, keep BiPAP at bedside, continue bronchodilators, diuretics, systemic steroids, consider transferring the patient out of the ICU today. Time with Patient: Less than 30
[2016-07-17 15:59] LABS: Glucose,Whole Blood 236 mg/dL (75-99)
[2016-07-17 18:08] LABS: Glucose,Whole Blood 244 mg/dL (75-99)
[2016-07-17] MEDS: SODIUM CHLORIDE 0.9% 1,000 ML IV SCH (18:08)
[2016-07-17 19:50] LABS: Glucose,Whole Blood 250 mg/dL (75-99)
[2016-07-17] MEDS: ATORVASTATIN 40 MG TAB PO SCH (20:44)
[2016-07-17] MEDS: methylPREDNISolone SOD SUCCI 40 MG/ML 1 ML VIAL IV SCH (20:45)
[2016-07-17] MEDS: WARFARIN 7.5 MG TAB PO SCH (20:45)
[2016-07-17 22:15] LABS: Glucose,Whole Blood 243 mg/dL (75-99)
[2016-07-18 00:11] LABS: Glucose,Whole Blood 214 mg/dL (75-99)
[2016-07-18 01:53] LABS: Glucose,Whole Blood 190 mg/dL (75-99)
[2016-07-18 04:04] LABS: Glucose,Whole Blood 266 mg/dL (75-99)
[2016-07-18 05:02] LABS: INR 2.9 (<1.1); Prothrombin Time 27.7 sec (9.0-12.0)
[2016-07-18 05:04] LABS: Basophils % (A) 0 %; CH 28.3; CHCM 30.4; Eosinophils % (A) 0 %; HDW 2.83; HGB 12.1 gm/dL (11.4-16.0); Hypochromasia Moderate; Luc # (Auto) 0.04; Luc % (Auto) 0; Lymphocytes # (A) 0.4 k/uL (1.0-4.8); Lymphocytes % (A) 3 %; MCH 28.4 pg (25.0-35.0); MCHC 30.4 g/dL (31.0-37.0); MCV 93.3 fL (80.0-100.0); Mean Platelet Volume 7.4; Monocytes # (A) 0.4 k/uL (0-1.0); Monocytes % (A) 3 %; Neutrophils # (A) 12.2 k/uL (1.3-7.7); Neutrophils % (A) 93 %; RBC 4.28 m/uL (3.80-5.40); RDW 14.8 % (11.5-15.5); WBC 13.1 k/uL (3.8-10.6)
[2016-07-18 05:20] LABS: Calcium 8.5 mg/dL (8.4-10.2)
[2016-07-18 05:42] LABS: Magnesium 2.2 mg/dL (1.6-2.3); Phosphorous 3.3 mg/dL (2.5-4.5)
[2016-07-18 06:01] LABS: Glucose,Whole Blood 174 mg/dL (75-99)
[2016-07-18] MEDS: BUDESONIDE 0.5 MG/2 ML NEBU INHALATION SCH ×2 (07:28→20:49)
[2016-07-18] MEDS: FORMOTEROL FUMARATE 20 MCG/2 ML NEBU INHALATION SCH ×2 (07:28→20:49)
[2016-07-18] MEDS: IPRATROPIUM-ALBUTEROL 3 ML NEB INHALATION SCH ×4 (07:29→20:49)
[2016-07-18 07:55] LABS: Glucose,Whole Blood 139 mg/dL (75-99)
[2016-07-18] MEDS: AMIODARONE 200 MG TAB PO SCH (08:03)
[2016-07-18] MEDS: LORATADINE 10 MG TAB PO SCH (08:03)
[2016-07-18] MEDS: FERROUS SULFATE 325 MG TAB PO SCH ×2 (08:03→21:05)
[2016-07-18] MEDS: methylPREDNISolone SOD SUCCI 40 MG/ML 1 ML VIAL IV SCH ×2 (08:03→21:05)
[2016-07-18] MEDS: METOPROLOL TARTRATE 50 MG TAB PO SCH ×2 (08:03→21:05)
[2016-07-18] MEDS: FAMOTIDINE 20 MG TAB PO SCH (08:03)
[2016-07-18] MEDS: FUROSEMIDE 10 MG/ML 2 ML VIAL IV SCH ×2 (08:03→21:04)
[2016-07-18 10:08] LABS: Glucose,Whole Blood 236 mg/dL (75-99)
[2016-07-18 10:49] VITALS: BMI 52.0
--- NOTE | 2016-07-18 11:37 | PN ---
The patient is a 65-year-old female came in with hypoxic respiratory failure, secondary to COPD exacerbation. The patient is clinically doing well. The patient is on nasal cannula oxygen about 10 L which is being tapered down. The patient is morbidly obese. The patient respiratory failure is multifactorial as well. My suspicion is low for pneumonia. Antibiotics will be discontinued. REVIEW OF SYSTEMS: CARDIOVASCULAR: No chest pain, no orthopnea, no PND, no palpitations. PULMONARY: Improved shortness of breath. GASTROINTESTINAL: No diarrhea, nausea or vomiting. No abdominal pain. Normoactive bowel sounds. NEUROLOGIC: No headaches, no weakness, no numbness. Medications are reviewed. PHYSICAL EXAMINATION: VITAL SIGNS: Temperature 97.6, pulse of 74, respiratory rate of 17, blood pressure is 114/58, saturating at 98% on 5 liters O2 by nasal cannula which is being tapered down at this point of time. GENERAL: Morbidly obese female. HEENT: Pupils are round and equally reacting to light. EOMI. No scleral icterus. No conjunctival pallor. Normocephalic, atraumatic. No pharyngeal erythema. No thyromegaly. CARDIOVASCULAR: S1 and S2 present. Unable to assess JVD. PULMONARY: Bibasilar crackles and rhonchus breath sounds bilaterally. Bibasilar crackles was appreciated. No wheezing was appreciated. The patient does not have any bronchophony or egophony. ABDOMEN: Soft, nontender, nondistended, normoactive bowel sounds. No palpable organomegaly. MUSCULOSKELETAL: No joint swelling or deformity. EXTREMITIES: No cyanosis, clubbing, or pedal edema. NEUROLOGICAL: Gross neurological examination did not reveal any focal deficits. SKIN: No rashes. LABORATORY DATA: CBC, CMP are significant for elevated WBC count of 13,300 and BUN and creatinine improved compared to yesterday. BUN and 39, creatinine is 1.1, her creatinine yesterday was 1.22. Potassium improved as well. Blood glucose is fairly controlled now. BNP is 3620 which is actually minimally worse compared to admission. UA significant, although there are some abnormalities which I do not believe is relevant at this point of time. ASSESSMENT AND PLAN: 1. Acute hypoxic as well as hypercapnic respiratory failure leading to metabolic encephalopathy. Patient has multifactorial respiratory failure, hypoxic secondary to pulmonary edema and hypercapnic secondary to morbid obesity and possibility of sleep apnea, chronic CO2 retention. 2. Congestive heart failure. 3. Mild chronic systolic dysfunction along dysfunction with some diastolic dysfunction with acute exacerbation. 4. Metabolic and toxic encephalopathy secondary to congestive heart failure. 5. Obstructive sleep apnea. 6. Type 2 diabetes mellitus. 7. Hyperlipidemia. 8. Bronchial asthma. 9. Morbid obesity. 10. Leukocytosis secondary to systemic steroids she received. 11. Hyperlipidemia. Continue with Lovenox. 12. Patient has a history of chronic atrial fibrillation. 13. Hyperkalemia, resolved at this point of time. PLAN: Continue with diuretic therapy. Continue to wean off, taper the oxygen down. The patient will be transferred out of the ICU. Continue to monitor kidney function. Patient's INR is therapeutic at this point of time. Continue with Coumadin. Patient is also on Lovenox, not sure why but that will be discontinued.
--- NOTE | 2016-07-18 11:49 | P.PN ---
Subjective Principal diagnosis: Acute hypoxic and hypercapnic respiratory failure I was asked to see Alia Nichols on a emergency basis because she was found to be hypoxic and in significant respiratory distress. I saw this patient on the medical surgical floor, fourth floor, and the patient was quite obtunded, lethargic and possibly CO2 narcosis. At the same time she was having prolonged apneas and these were obstructive apneas nontender the patient has severe obstructive sleep apnea with an AHI of 92 and she has been maintained on a BiPAP at a pressure of 22/80 cm of water on outpatient basis. She is also known to have bronchial asthma, valvular heart disease with a bicuspid aortic valve and CHF with an ejection fraction of 45%. Previous cardiac catheterization has shown normal coronaries. The patient is morbidly obese. She has approximately 2 fibrillation and she has been maintained on long-term articulation with warfarin. This patient was hospitalized yesterday because of increased shortness of breath. Apparently she had some increased back pain which restricted her mobility. Based on that, the patient was not taking her Lasix not to make herself go to the bathroom back and forth for urination. She apparently became progressively swollen and furthermore she started having increased dyspnea. She came into the emergency department yesterday for shortness of breath. She had also some increased cough and chest congestion. She was complaining of increased back pain. Her chest x-ray in the emergency department showed some CHF and cardiomegaly and increased central vascularity, her proBNP level was mildly elevated and the first set of cardiac enzyme was negative. The patient was placed on diuresis. The patient was placed on broken dilated and systemic steroids. She was admitted to the medical floor. Moved this patient immediately to the intensive care unit. I put on a BiPAP. The blood gases were obtained and ICU showed a pH of 7.19 with a pCO2 of 66 and pO2 of 353 and this was done while the patient being on 100% nonrebreather facemask. Potassium level was noted to be elevated at 6.0. Blood sugars are also elevated at 364. The patient was arousable. Her neurologic exam was nonfocal and the patient was moving all 4 extremities without any limitation. Once left unstimulated, the patient would go back to sleep. Patient was reevaluated today on 07/17/2016, she seems to be doing quite well. Patient is now on nasal cannula, off BiPAP, and she is sitting in bed, eating, alert oriented 3, in no form of distress. CBC was reviewed ABG from yesterday was reviewed and clearly reflected hypercapnic respiratory failure basic metabolic profile from today was also reviewed showing a bicarb level of 26 hence her hypercapnia is relatively acute and not chronic. Patient was reevaluated today on 07/18/2016, continues to do very well, she uses her BiPAP last night, but she wasn't so happy by using it. Presently on a nasal cannula, denies any shortness of breath at present, no cough, no wheezing , and she is being considered for transfer to a regular medical floor today. All labs were reviewed, BUN is 44 creatinine is 1.30 CBC is normal. Objective - Vital Signs Vital signs: Vital Signs Temp 97.4 F L 07/18/16 08:00 Pulse 68 07/18/16 11:34 Resp 25 H 07/18/16 10:00 BP 148/86 07/18/16 09:00 Pulse Ox 97 07/18/16 10:00 Intake & Output 07/17/16 07/18/16 07/18/16 18:59 06:59 18:59 Intake Total 422.924 953.116 115.467 Output Total 580 1600 1200 Balance -157.076 -646.884 -1084.533 Weight 125 kg 125 kg Intake: Intake, IV Titration 422.924 353.116 115.467 Amount Insulin Regular 100 unit 29.441 In Sodium Chloride 0.9% 100 ml @ Per Protocol IV .Q0M AIDA Rx#:[id number] Insulin Regular 100 unit 35.983 110.616 15.467 In Sodium Chloride 0.9% 100 ml @ Titrate IV .Q0M AIDA Rx#:[id number] Magnesium Sulfate-D5w Pmx 100 1 gm In Dextrose/Water 1 100ml.bag @ 100 mls/hr IVPB Q1H A[facility] Rx#: [id number] Piperacillin-Tazobactam 3 87.5 12.5 .375 gm In Dextrose/Water 1 50ml.bag @ 12.5 mls/hr IVPB Q8HR A[facility] Rx#: [id number] Sodium Chloride 0.9% 1, 170 230 100 000 ml @ 20 mls/hr IV . Q24H AIDA Rx#:[id number] Oral 600 Output: Urine 580 1600 1200 Other: Voiding Method Indwelling Catheter Bedside Commode Bedside Commode - Exam Physical Exam: Revealed a 65-year-old female in no distress, obese, sitting in bed eating, on nasal cannula. HEENT:[Neck is supple.] [No neck masses.] [No thyromegaly.] [No JVD.] Chest: [Diminished breath sounds at the bases no crackles or rhonchi or wheezes. ] Cardiac Exam: [Normal S1 and S2, no S3 gallop, no murmur.] Abdomen: [Soft, nontender, no megaly, no rebound, no guarding, normal bowel sounds.] Extremities: [No clubbing, no edema, no cyanosis.] Neurological Exam: [No focal neurologic deficit.] - Labs CBC & Chem 7: 07/18/16 04:11 07/18/16 04:11 Labs: Abnormal Lab Results - Last 24 Hours (Table) 07/17/16 07/17/16 07/17/16 Range/Units 12:07 14:21 15:57 WBC (3.8-10.6) k/uL MCHC (31.0-37.0) g/dL Neutrophils # (1.3-7.7) k/uL Lymphocytes # (1.0-4.8) k/uL PT (9.0-12.0) sec BUN (7-17) mg/dL Creatinine (0.52-1.04) mg/dL Glucose (74-99) mg/dL POC Glucose (mg/dL) 198 H 280 H 236 H (75-99) mg/dL 07/17/16 07/17/16 07/17/16 Range/Units 18:06 19:48 22:12 WBC (3.8-10.6) k/uL MCHC (31.0-37.0) g/dL Neutrophils # (1.3-7.7) k/uL Lymphocytes # (1.0-4.8) k/uL PT (9.0-12.0) sec BUN (7-17) mg/dL Creatinine (0.52-1.04) mg/dL Glucose (74-99) mg/dL POC Glucose (mg/dL) 244 H 250 H 243 H (75-99) mg/dL 07/18/16 07/18/16 07/18/16 Range/Units 00:09 01:52 04:03 WBC (3.8-10.6) k/uL MCHC (31.0-37.0) g/dL Neutrophils # (1.3-7.7) k/uL Lymphocytes # (1.0-4.8) k/uL PT (9.0-12.0) sec BUN (7-17) mg/dL Creatinine (0.52-1.04) mg/dL Glucose (74-99) mg/dL POC Glucose (mg/dL) 214 H 190 H 266 H (75-99) mg/dL 07/18/16 07/18/16 07/18/16 Range/Units 04:11 04:11 04:11 WBC 13.1 H (3.8-10.6) k/uL MCHC 30.4 L (31.0-37.0) g/dL Neutrophils # 12.2 H (1.3-7.7) k/uL Lymphocytes # 0.4 L (1.0-4.8) k/uL PT 27.7 H (9.0-12.0) sec BUN 44 H (7-17) mg/dL Creatinine 1.30 H (0.52-1.04) mg/dL Glucose 179 H (74-99) mg/dL POC Glucose (mg/dL) (75-99) mg/dL 07/18/16 07/18/16 07/18/16 Range/Units 06:00 07:53 10:06 WBC (3.8-10.6) k/uL MCHC (31.0-37.0) g/dL Neutrophils # (1.3-7.7) k/uL Lymphocytes # (1.0-4.8) k/uL PT (9.0-12.0) sec BUN (7-17) mg/dL Creatinine (0.52-1.04) mg/dL Glucose (74-99) mg/dL POC Glucose (mg/dL) 174 H 139 H 236 H (75-99) mg/dL Microbiology - Last 24 Hours (Table) 07/17/16 10:02 Urine Culture - Preliminary Urine,Catheterized Assessment and Plan Plan: 1 acute hypercapnic respiratory failure with CO2 narcosis. This respiratory failure is multifactorial. Predominantly the patient has severe symptomatic obstructive sleep apnea baseline and in addition there is a component of fluid overload probably CHF as the patient's chest x-ray shows increased interstitial markings along with cardiomegaly. Superimposed pneumonia is felt to be less likely at this point although cannot be completely excluded. In addition to all of this, patient was receiving narcotics and baclofen which may have been a contributing factor to her CO2 narcosis. 2 diminished level of consciousness secondary to above 3 severe obstructive sleep apnea with an AHI of 92, noncompliant to BiPAP therapy which is supposed to be at a pressure of 22/80 cm of water 4 morbid obesity 5 normal coronaries 6 proximal atrial fibrillation and patient's cardiac rhythm is sinus and the patient has been fully anticoagulate with warfarin 7 CHF with an ejection fraction of 45% 8 bicuspid aortic valve related to a previous TIMOTHY 9 previous cardioversion following a TIMOTHY to treat atrial fibrillation and the patient has been on amiodarone which has maintained this patient's cardiac rhythm is sinus 10 diabetes mellitus with poorly controlled blood sugars 11 hyperkalemia probably due to hyperglycemia, no EKG changes 12 chronic bronchial asthma 13 remote history of cellulitis of the lower extremities Recommendation: Continue present meds, keep a BiPAP at bedside, transferred to a regular medical floor today. Time with Patient: Less than 30
[2016-07-18 12:14] LABS: Glucose,Whole Blood 250 mg/dL (75-99)
--- NOTE | 2016-07-18 14:32 | P.PN ---
Progress Note - Text One impression should read: Acute exacerbation of chronic mild persistent asthma complicated by acute on chronichypercapnic respiratory failuresecondary to severe obstructive sleep apnea.
[2016-07-18 15:19] LABS: Glucose,Whole Blood 307 mg/dL (75-99)
[2016-07-18 15:22] VITALS: RESP 18
[2016-07-18] MEDS: INSULIN REGULAR 100 UNIT in SODIUM CHLORIDE 0.9% 100 ML IV SCH (16:15)
[2016-07-18 16:23] LABS: Glucose,Whole Blood 250 mg/dL (75-99)
[2016-07-18 18:31] LABS: Glucose,Whole Blood 293 mg/dL (75-99)
[2016-07-18] MEDS: SODIUM CHLORIDE 0.9% 1,000 ML IV SCH (19:00)
--- NOTE | 2016-07-18 19:31 | PN ---
DATE OF SERVICE: 07/18/2016 PRESENTING COMPLAINT: Short of breath. INTERVAL HISTORY: This is a patient who was transferred out of the ICU today. Patient had hypoxic respiratory failure, COPD exacerbation. Patient is on nasal cannula. Did tolerate some diet. Had a bowel movement. Does feel tired. Apparently antibiotics were discontinued yesterday. Review of systems done for constitutional, cardiovascular, GI, pulmonary; relevant findings as above. Current medications are reviewed that include DuoNeb, Solu-Medrol. No antibiotics. On examination, temperature 97.1, pulse 72, respiration 18, blood pressure 125/68, pulse ox 97% on 2 L. GENERAL APPEARANCE: Sitting up on a chair. Not in distress, though tired-appearing. EYES: Pupils equal. Conjunctivae normal. NECK: JVD unable to assess. Mass not palpable. RESPIRATORY: Effort normal. LUNGS: Diminished breath sounds. CARDIOVASCULAR: First and second sounds normal. Some edema. ABDOMEN: Soft, nontender. Liver and spleen not palpable. PSYCHIATRY: Alert and oriented x3. Mood and affect normal. INVESTIGATIONS: White count 13.1, hemoglobin 12.1, potassium 5. BUN 44, creatinine 1.30. ASSESSMENT: 1. Acute hypoxic and hypercapnic respiratory failure leading to metabolic encephalopathy. It is multifactorial, including pulmonary edema, morbid obesity, an element of sleep apnea and chronic CO2 retention. 2. Metabolic encephalopathy from carbon dioxide retention, improving. 3. Obstructive sleep apnea. 4. Diabetes mellitus, type 2. 5. Hyperlipidemia. 6. Morbid obesity, body mass index 52.1. 7. Leukocytosis from steroids. 8. Paroxysmal atrial fibrillation, currently in sinus rhythm. 9. Severe obstructive sleep apnea, noncompliant with BiPAP. 10. Hypothyroidism. 11. Moderate persistent asthma with acute exacerbation on presentation. 12. Paroxysmal atrial fibrillation, chronically on Coumadin. PLAN: Continue current medication and treatment plan. Patient's Solu-Medrol is slowly being cut back. Will follow closely.
[2016-07-18 20:02] LABS: Glucose,Whole Blood 192 mg/dL (75-99)
[2016-07-18] MEDS: ATORVASTATIN 40 MG TAB PO SCH (21:05)
[2016-07-18] MEDS: WARFARIN 7.5 MG TAB PO SCH (21:06)
[2016-07-18 22:26] LABS: Glucose,Whole Blood 179 mg/dL (75-99)
[2016-07-19 00:14] LABS: Glucose,Whole Blood 178 mg/dL (75-99)
[2016-07-19 02:11] LABS: Glucose,Whole Blood 165 mg/dL (75-99)
[2016-07-19 03:51] LABS: Glucose,Whole Blood 161 mg/dL (75-99)
[2016-07-19 05:29] LABS: Glucose,Whole Blood 149 mg/dL (75-99)
[2016-07-19 06:23] LABS: Basophils % (A) 0 %; CH 28.3; CHCM 30.6; Eosinophils % (A) 0 %; HCT 44.8 % (34.0-46.0); HDW 2.89; HGB 13.6 gm/dL (11.4-16.0); Hypochromasia Moderate; Luc # (Auto) 0.05; Luc % (Auto) 0; Lymphocytes # (A) 0.6 k/uL (1.0-4.8); Lymphocytes % (A) 4 %; MCH 28.2 pg (25.0-35.0); MCHC 30.4 g/dL (31.0-37.0); Mean Platelet Volume 7.4; Monocytes # (A) 0.4 k/uL (0-1.0); Monocytes % (A) 3 %; Neutrophils % (A) 92 %; RBC 4.82 m/uL (3.80-5.40); RDW 14.5 % (11.5-15.5); WBC 14.1 k/uL (3.8-10.6); WBC (Perox) 14.28
[2016-07-19 06:32] LABS: Anion Gap 9 mmol/L; Blood Urea Nitrogen 46 mg/dL (7-17); Calcium 8.7 mg/dL (8.4-10.2); Carbon Dioxide 30 mmol/L (22-30); Chloride 102 mmol/L (98-107); Glucose 163 mg/dL (74-99); Non-African American GFR(MDRD) 50 (>60 ml/min/1.73 sqM); Phosphorous 3.8 mg/dL (2.5-4.5); Potassium 5.4 mmol/L (3.5-5.1); Sodium 141 mmol/L (137-145)
[2016-07-19 06:44] LABS: INR 2.4 (<1.1); Prothrombin Time 23.2 sec (9.0-12.0)
[2016-07-19 07:35] LABS: Glucose,Whole Blood 150 mg/dL (75-99)
[2016-07-19] MEDS: FORMOTEROL FUMARATE 20 MCG/2 ML NEBU INHALATION SCH (09:07)
[2016-07-19] MEDS: BUDESONIDE 0.5 MG/2 ML NEBU INHALATION SCH (09:07)
[2016-07-19] MEDS: IPRATROPIUM-ALBUTEROL 3 ML NEB INHALATION SCH ×2 (09:07→12:13)
[2016-07-19] MEDS: AMIODARONE 200 MG TAB PO SCH (09:39)
[2016-07-19] MEDS: FAMOTIDINE 20 MG TAB PO SCH (09:40)
[2016-07-19] MEDS: LORATADINE 10 MG TAB PO SCH (09:40)
[2016-07-19] MEDS: FERROUS SULFATE 325 MG TAB PO SCH (09:40)
[2016-07-19] MEDS: FUROSEMIDE 10 MG/ML 2 ML VIAL IV SCH (09:40)
[2016-07-19] MEDS: METOPROLOL TARTRATE 50 MG TAB PO SCH (09:41)
[2016-07-19] MEDS: methylPREDNISolone SOD SUCCI 40 MG/ML 1 ML VIAL IV SCH (09:41)
[2016-07-19 10:46] LABS: Glucose,Whole Blood 287 mg/dL (75-99)
[2016-07-19] MEDS: INSULIN REGULAR 100 UNIT in SODIUM CHLORIDE 0.9% 100 ML IV SCH (10:58)
[2016-07-19] MEDS: SODIUM CHLORIDE 0.9% 1,000 ML IV SCH (11:03)
[2016-07-19 11:18] VITALS: TEMP 97.4
[2016-07-19 11:47] LABS: Glucose,Whole Blood 288 mg/dL (75-99)
--- NOTE | 2016-07-19 11:52 | P.PN ---
Subjective Principal diagnosis: Acute hypoxic and hypercapnic respiratory failure I was asked to see Alia Nichols on a emergency basis because she was found to be hypoxic and in significant respiratory distress. I saw this patient on the medical surgical floor, fourth floor, and the patient was quite obtunded, lethargic and possibly CO2 narcosis. At the same time she was having prolonged apneas and these were obstructive apneas nontender the patient has severe obstructive sleep apnea with an AHI of 92 and she has been maintained on a BiPAP at a pressure of 22/80 cm of water on outpatient basis. She is also known to have bronchial asthma, valvular heart disease with a bicuspid aortic valve and CHF with an ejection fraction of 45%. Previous cardiac catheterization has shown normal coronaries. The patient is morbidly obese. She has approximately 2 fibrillation and she has been maintained on long-term articulation with warfarin. This patient was hospitalized yesterday because of increased shortness of breath. Apparently she had some increased back pain which restricted her mobility. Based on that, the patient was not taking her Lasix not to make herself go to the bathroom back and forth for urination. She apparently became progressively swollen and furthermore she started having increased dyspnea. She came into the emergency department yesterday for shortness of breath. She had also some increased cough and chest congestion. She was complaining of increased back pain. Her chest x-ray in the emergency department showed some CHF and cardiomegaly and increased central vascularity, her proBNP level was mildly elevated and the first set of cardiac enzyme was negative. The patient was placed on diuresis. The patient was placed on broken dilated and systemic steroids. She was admitted to the medical floor. Moved this patient immediately to the intensive care unit. I put on a BiPAP. The blood gases were obtained and ICU showed a pH of 7.19 with a pCO2 of 66 and pO2 of 353 and this was done while the patient being on 100% nonrebreather facemask. Potassium level was noted to be elevated at 6.0. Blood sugars are also elevated at 364. The patient was arousable. Her neurologic exam was nonfocal and the patient was moving all 4 extremities without any limitation. Once left unstimulated, the patient would go back to sleep. Patient was reevaluated today on 07/17/2016, she seems to be doing quite well. Patient is now on nasal cannula, off BiPAP, and she is sitting in bed, eating, alert oriented 3, in no form of distress. CBC was reviewed ABG from yesterday was reviewed and clearly reflected hypercapnic respiratory failure basic metabolic profile from today was also reviewed showing a bicarb level of 26 hence her hypercapnia is relatively acute and not chronic. Patient was reevaluated today on 07/18/2016, continues to do very well, she uses her BiPAP last night, but she wasn't so happy by using it. Presently on a nasal cannula, denies any shortness of breath at present, no cough, no wheezing , and she is being considered for transfer to a regular medical floor today. All labs were reviewed, BUN is 44 creatinine is 1.30 CBC is normal. Patient was reevaluated today on 07/19/2016, she is doing well, not using her BiPAP, presently on nasal cannula, feeling much better, and I believe discharge planning is in progress. CBC showed WBC count of 14.1 hemoglobin of 13.6. Basic metabolic profile was reviewed. Renal profile is improving. Potassium remains a bit elevated at 5.4. Overall the patient is doing much better. Objective - Vital Signs Vital signs: Vital Signs Temp 97.4 F L 07/19/16 11:16 Pulse 60 07/19/16 11:18 Resp 18 07/19/16 11:18 BP 159/78 07/19/16 11:16 Pulse Ox 97 07/19/16 11:16 Intake & Output 07/18/16 07/19/16 07/19/16 18:59 06:59 18:59 Intake Total 200.117 306.800 196.60 Output Total 1600 1500 0 Balance -1399.883 -1193.200 196.60 Weight 125 kg 126.2 kg 126.2 kg Intake: Intake, IV Titration 200.117 306.800 16.60 Amount Insulin Regular 100 unit 40.117 66.800 16.60 In Sodium Chloride 0.9% 100 ml @ Titrate IV .Q0M AIDA Rx#:[id number] Sodium Chloride 0.9% 1, 160 240 000 ml @ 20 mls/hr IV . Q24H AIDA Rx#:[id number] Oral 180 Output: Urine 1600 1500 Stool 0 0 Other: Voiding Method Bedside Commode Toilet Toilet # Voids 1 # Bowel Movements 0 0 - Exam Physical Exam: Revealed a 65-year-old female in no distress, obese, sitting in bed eating, on nasal cannula. HEENT:[Neck is supple.] [No neck masses.] [No thyromegaly.] [No JVD.] Chest: [Diminished breath sounds at the bases no crackles or rhonchi or wheezes. ] Cardiac Exam: [Normal S1 and S2, no S3 gallop, no murmur.] Abdomen: [Soft, nontender, no megaly, no rebound, no guarding, normal bowel sounds.] Extremities: [No clubbing, no edema, no cyanosis.] Neurological Exam: [No focal neurologic deficit.] - Labs CBC & Chem 7: 07/19/16 06:05 07/19/16 06:05 Labs: Abnormal Lab Results - Last 24 Hours (Table) 07/18/16 07/18/16 07/18/16 Range/Units 12:12 14:52 16:11 WBC (3.8-10.6) k/uL MCHC (31.0-37.0) g/dL Neutrophils # (1.3-7.7) k/uL Lymphocytes # (1.0-4.8) k/uL PT (9.0-12.0) sec Potassium (3.5-5.1) mmol/L BUN (7-17) mg/dL Creatinine (0.52-1.04) mg/dL Glucose (74-99) mg/dL POC Glucose (mg/dL) 250 H 307 H 250 H (75-99) mg/dL 07/18/16 07/18/16 07/18/16 Range/Units 18:19 20:00 22:25 WBC (3.8-10.6) k/uL MCHC (31.0-37.0) g/dL Neutrophils # (1.3-7.7) k/uL Lymphocytes # (1.0-4.8) k/uL PT (9.0-12.0) sec Potassium (3.5-5.1) mmol/L BUN (7-17) mg/dL Creatinine (0.52-1.04) mg/dL Glucose (74-99) mg/dL POC Glucose (mg/dL) 293 H 192 H 179 H (75-99) mg/dL 07/18/16 07/19/16 07/19/16 Range/Units 23:54 02:09 03:49 WBC (3.8-10.6) k/uL MCHC (31.0-37.0) g/dL Neutrophils # (1.3-7.7) k/uL Lymphocytes # (1.0-4.8) k/uL PT (9.0-12.0) sec Potassium (3.5-5.1) mmol/L BUN (7-17) mg/dL Creatinine (0.52-1.04) mg/dL Glucose (74-99) mg/dL POC Glucose (mg/dL) 178 H 165 H 161 H (75-99) mg/dL 07/19/16 07/19/16 07/19/16 Range/Units 05:28 06:05 06:05 WBC 14.1 H (3.8-10.6) k/uL MCHC 30.4 L (31.0-37.0) g/dL Neutrophils # 13.0 H (1.3-7.7) k/uL Lymphocytes # 0.6 L (1.0-4.8) k/uL PT 23.2 H (9.0-12.0) sec Potassium (3.5-5.1) mmol/L BUN (7-17) mg/dL Creatinine (0.52-1.04) mg/dL Glucose (74-99) mg/dL POC Glucose (mg/dL) 149 H (75-99) mg/dL 07/19/16 07/19/16 07/19/16 Range/Units 06:05 07:31 10:34 WBC (3.8-10.6) k/uL MCHC (31.0-37.0) g/dL Neutrophils # (1.3-7.7) k/uL Lymphocytes # (1.0-4.8) k/uL PT (9.0-12.0) sec Potassium 5.4 H (3.5-5.1) mmol/L BUN 46 H (7-17) mg/dL Creatinine 1.11 H (0.52-1.04) mg/dL Glucose 163 H (74-99) mg/dL POC Glucose (mg/dL) 150 H 287 H (75-99) mg/dL 07/19/16 Range/Units 11:45 WBC (3.8-10.6) k/uL MCHC (31.0-37.0) g/dL Neutrophils # (1.3-7.7) k/uL Lymphocytes # (1.0-4.8) k/uL PT (9.0-12.0) sec Potassium (3.5-5.1) mmol/L BUN (7-17) mg/dL Creatinine (0.52-1.04) mg/dL Glucose (74-99) mg/dL POC Glucose (mg/dL) 288 H (75-99) mg/dL Microbiology - Last 24 Hours (Table) 07/17/16 10:02 Urine Culture - Final Urine,Catheterized Assessment and Plan Plan: 1 acute hypercapnic respiratory failure with CO2 narcosis. This respiratory failure is multifactorial. Predominantly the patient has severe symptomatic obstructive sleep apnea baseline and in addition there is a component of fluid overload probably CHF as the patient's chest x-ray shows increased interstitial markings along with cardiomegaly. Superimposed pneumonia is felt to be less likely at this point although cannot be completely excluded. In addition to all of this, patient was receiving narcotics and baclofen which may have been a contributing factor to her CO2 narcosis. 2 diminished level of consciousness secondary to above 3 severe obstructive sleep apnea with an AHI of 92, noncompliant to BiPAP therapy which is supposed to be at a pressure of 22/80 cm of water 4 morbid obesity 5 normal coronaries 6 proximal atrial fibrillation and patient's cardiac rhythm is sinus and the patient has been fully anticoagulate with warfarin 7 CHF with an ejection fraction of 45% 8 bicuspid aortic valve related to a previous TIMOTHY 9 previous cardioversion following a TIMOTHY to treat atrial fibrillation and the patient has been on amiodarone which has maintained this patient's cardiac rhythm is sinus 10 diabetes mellitus with poorly controlled blood sugars 11 hyperkalemia probably due to hyperglycemia, no EKG changes 12 chronic bronchial asthma 13 remote history of cellulitis of the lower extremities Recommendation: Continue present meds, change Solu-Medrol to prednisone, and taper gradually over the next 2 weeks, consider discharge planning. Follow-up on outpatient basis. Time with Patient: Less than 30
[2016-07-19] MEDS ORDERED: predniSONE 10 MG TAB PO SCH (12:00)
[2016-07-19 12:02] VITALS: BP 151/87; PULSE 68
[2016-07-19 14:33] LABS: Glucose,Whole Blood 178 mg/dL (75-99)
--- NOTE | 2016-07-20 12:16 | DS ---
DATE OF ADMISSION: 07/15/2016 DATE OF DISCHARGE: 07/19/2016 FINAL DIAGNOSES: 1. Acute hypoxic and hypercapnic respiratory failure leading to metabolic encephalopathy, multifactorial, including pulmonary edema, morbid obesity, element of sleep apnea and chronic CO2 retention, present on admission. 2. Metabolic encephalopathy from CO2, carbon dioxide retention. 3. Obstructive sleep apnea. 4. Diabetes mellitus, type 2. 5. Hyperlipidemia. 6. Morbid obesity, body mass index greater than 50. 7. Leukocytosis from steroids. 8. Paroxysmal atrial fibrillation, currently in sinus rhythm. 9. Severe obstructive sleep apnea, noncompliant with BiPAP. 10. Hypothyroidism. 11. Moderate persistent asthma with acute exacerbation on presentation. 12. Proximal atrial fibrillation, chronically on Coumadin. CONSULTATIONS: Dr. Lama from Pulmonary. HOSPITAL COURSE: This patient presented with asthma exacerbation and encephalopathy when she came in and she was in the ICU. Doing much better at the time of discharge. INR was 2.4. On the day of discharge patient tolerating a diet. Breathing much better. Care was discussed with daughter. Cleared by Dr. Lama. DISCHARGE MEDICATIONS: 1. Iron 325 p.o. b.i.d. 2. Zantac 150 mg p.o. b.i.d. 3. Metformin 1000 mg p.o. b.i.d. 4. Lipitor 40 mg q.h.s. 5. Lopressor 50 mg p.o. b.i.d. 6. Cordarone 200 mg p.o. daily. 7. Nystatin topical b.i.d. 8. Symbicort 160/4.5, 1 puff b.i.d. p.r.n. 9. Lantus 40 units subcu q.h.s. 10. Apidra 8 units subcu t.i.d. with meals. 11. Claritin 10 mg a day. 12. Atenolol 100 mg p.o. b.i.d. p.r.n. 13. Imodium 2 mg p.o. b.i.d. p.r.n. 14. Coumadin 3.75 mg p.o. q.h.s. 15. Baclofen 10 mg p.o. q.8 p.r.n. 16. Lasix 40 mg p.o. b.i.d. 17. Synthroid 25 mcg p.o. daily. 18. Tylenol No. 3 1 tablet q.4 p.r.n. for pain. 19. DuoNeb q.i.d. 20. Lisinopril hydrochlorothiazide. 21. Zestoretic 02/08.5 mg 1 tablet p.o. b.i.d. Follow with Dr. Quan on 07/21/2016. BMP in 2 days and follow with pulmonary per them. On examination, LUNGS: Decreased breath sounds. CARDIOVASCULAR: First and second sounds. PSYCH: Alert and oriented x3. Mood and affect normal.
--- NOTE | 2016-08-14 17:01 | DS ---
ADDENDUM TO DISCHARGE SUMMARY DATE OF ADMISSION: 07/15/2016 DATE OF DISCHARGE: 07/19/2016 Discharge planning more than 35 minutes.
== END 2016-07-19 16:11 | disposition home health service (06) | DRG 291 ==
LOC: EC 17:28 → 4MS4W 18:45 → 6ICU 07-16 11:26 → 6SEL 07-18 14:28
PROVIDERS: ADMIT Hospitalist; ATTEND Hospitalist
DX: I11.0 Hypertensive heart disease with heart failure (principal); G92 Toxic encephalopathy; E87.2 Acidosis; J96.01 Acute respiratory failure with hypoxia; J96.02 Acute respiratory failure with hypercapnia; J44.1 Chronic obstructive pulmonary disease with (acute) exacerbation; E11.65 Type 2 diabetes mellitus with hyperglycemia; J45.41 Moderate persistent asthma with (acute) exacerbation; E66.2 Morbid (severe) obesity with alveolar hypoventilation; Q23.1 Congenital insufficiency of aortic valve; Z68.43 Body mass index [BMI] 50.0-59.9, adult; I27.2 Other secondary pulmonary hypertension; E03.9 Hypothyroidism, unspecified; D72.829 Elevated white blood cell count, unspecified; I50.23 Acute on chronic systolic (congestive) heart failure; E78.5 Hyperlipidemia, unspecified; E87.5 Hyperkalemia; E87.6 Hypokalemia; I48.0 Paroxysmal atrial fibrillation; I48.2 Chronic atrial fibrillation; K21.9 Gastro-esophageal reflux disease without esophagitis; T38.0X5A Adverse effect of glucocorticoids and synthetic analogues, initial encounter; Z77.22 Contact with and (suspected) exposure to environmental tobacco smoke (acute) (chronic); Z79.01 Long term (current) use of anticoagulants; Z79.4 Long term (current) use of insulin; Z79.899 Other long term (current) drug therapy; Z80.1 Family history of malignant neoplasm of trachea, bronchus and lung; Z91.19 Patient's noncompliance with other medical treatment and regimen; Z99.81 Dependence on supplemental oxygen
CPT/HCPCS: 36415; 36600; 71010; 71020; 80048; 80053; 81001; 82550; 82553; 82805; 83036; 83735; 83880; 84100; 84484; 85025; 85610; 85730; 87086; 93005; 94640; 94660; 96374; 96375; 99291

== ENCOUNTER 2016-09-30 19:22 | Emergency (ER) | payer OTHER ==
[2016-09-30] MEDS ORDERED: SODIUM CHLORIDE 0.9% 1,000 ML IV STA (19:58)
[2016-09-30] MEDS ORDERED: IPRATROPIUM-ALBUTEROL 3 ML NEB INHALATION STA (19:58)
--- NOTE | 2016-09-30 20:14 | ED ---
SOB HPI - General Source: patient, RN notes reviewed Mode of arrival: ambulatory Limitations: no limitations - History of Present Illness MD Complaint: shortness of breath <Sal Vang - Last Filed: 09/30/16 21:04> <Myles Chavez - Last Filed: 09/30/16 23:19> - General Chief Complaint: Shortness of Breath Stated Complaint: cough/swollen feet Time Seen by Provider: 09/30/16 19:51 - History of Present Illness Initial Comments: This is a 65-year-old female complains of edema in her feet. Yesterday the shortness of breath a cough the past one half weeks. She has occasional yellow phlegm no fevers chills or sweats no overt chest pain. She is here for evaluation. (Sal Vang) - Related Data Home Medications Medication Instructions Recorded Confirmed Ferrous Sulfate [Feosol] 325 mg PO BID 07/14/14 07/15/16 Ranitidine HCl 150 mg PO BID 07/14/14 07/15/16 metFORMIN HCL 1,000 mg PO BID 07/14/14 07/15/16 Atorvastatin [Lipitor] 40 mg PO HS 09/28/15 07/15/16 Amiodarone [Cordarone] 200 mg PO DAILY 10/28/15 07/15/16 Nystatin 100,000Unit/gm Cream 1 applic TOPICAL BID 02/10/16 07/15/16 [Mycostatin Cream] Budesonide/Formoterol Fumarate 1 puff INHALATION RT-BID PRN 04/02/16 07/15/16 [Symbicort 160-4.5 Mcg Inhaler] Insulin Glargine [Lantus] 40 unit SQ HS 04/02/16 07/15/16 Insulin Glulisine [Apidra Solostar] 8 unit SQ TID-W/MEALS 04/02/16 07/15/16 Loratadine [Claritin] 10 mg PO DAILY 04/02/16 07/15/16 Acetaminophen [Tylenol] 1,000 mg PO BID PRN 07/12/16 07/15/16 Loperamide [Imodium] 2 mg PO BID PRN 07/12/16 07/15/16 Warfarin [Coumadin] 3.75 mg PO HS 07/12/16 07/15/16 Baclofen 10 mg PO Q8H PRN 07/15/16 07/15/16 Furosemide [Lasix] 40 mg PO BID 07/15/16 07/15/16 Levothyroxine Sodium [Synthroid] 25 mcg PO DAILY 07/16/16 07/16/16 Previous Rx's Medication Instructions Recorded Metoprolol Tartrate [Lopressor] 50 mg PO BID #60 tab 10/08/15 Acetaminophen-Codeine 300-30mg 1 tab PO Q4H PRN #60 tablet 07/19/16 [Tylenol w/codeine #3] Ipratropium-Albuterol Nebulize 3 ml INHALATION RT-QID #120 07/19/16 [Duoneb 0.5 mg-3 mg/3 ml Soln] ampul.neb Lisinopril-Hctz 10-12.5 mg 1 tab PO BID #60 tab 07/19/16 [Zestoretic 10-12.5] Allergies Allergy/AdvReac Type Severity Reaction Status Date / Time No Known Allergies Allergy Verified 09/30/16 19:29 Review of Systems ROS Other: All systems not noted in ROS Statement are negative. <Sal Vang - Last Filed: 09/30/16 21:04> ROS Other: All systems not noted in ROS Statement are negative. <Myles Chavez - Last Filed: 09/30/16 23:19> ROS Statement: Those systems with pertinent positive or pertinent negative responses have been documented in the HPI. Past Medical History Past Medical History: Atrial Fibrillation, Asthma, Heart Failure, COPD, Diabetes Mellitus, GERD/Reflux, Hyperlipidemia, Hypertension, Pneumonia, Sleep Apnea/CPAP/BIPAP Additional Past Medical History / Comment(s): Severe obstructive sleep apnea, with an apnea popping index of 92, titrated to a BiPAP pressure of 22/18 yet the patient has not been using her BiPAP machine on a regular basis, morbid obesity, bronchial asthma, approximately 2 fibrillation, bicuspid aortic valve, CHF with an ejection fraction of 45% based on a previous echocardiogram, diabetes mellitus, hyperlipidemia, GE reflux, hypertension, history of cellulitis of the lower extremities patient on the right it has recovered, History of Any Multi-Drug Resistant Organisms: None Reported Past Surgical History: Appendectomy, Cholecystectomy, Heart Catheterization Additional Past Surgical History / Comment(s): 11/03/15 TIMOTHY with cardioversion, cardiac cath, ROSANGELA CATARACTS Past Anesthesia/Blood Transfusion Reactions: No Reported Reaction Past Psychological History: No Psychological Hx Reported Additional Psychological History / Comment(s): PT LIVES AT [facility] IN [place],USES A WALKER WHEN OUTSIDE OF HER APT.STATED WANTED TO TALK TO EDUCATION ANALYST TO SEE IF SHE COULD GET digital scale. Pt does not drive. She gets to appts by daughter taking or using [employer] bus. She cooks and manages her own medication. She has home O2 and a glucose monitor which is not currently working due to battery depletion. Smoking Status: Never smoker Past Alcohol Use History: None Reported Additional Past Alcohol Use History / Comment(s): SECOND HAND SMOKE EXPOSURE ALL HER LIFE Past Drug Use History: None Reported - Past Family History Mother Family Medical History: Cancer Additional Family Medical History / Comment(s): SKIN AND LUNG CANCER "MESOTHELIOMA" Father Family Medical History: CVA/TIA <Sal Vang - Last Filed: 09/30/16 21:04> General Exam Limitations: no limitations General appearance: alert, in no apparent distress Head exam: Present: atraumatic, normocephalic, normal inspection Eye exam: Present: normal appearance, PERRL, EOMI. Absent: scleral icterus, conjunctival injection, periorbital swelling ENT exam: Present: mucous membranes dry Neck exam: Present: normal inspection. Absent: tenderness, meningismus, lymphadenopathy Respiratory exam: Present: normal lung sounds bilaterally. Absent: respiratory distress, wheezes, rales, rhonchi, stridor Cardiovascular Exam: Present: regular rate, normal rhythm, normal heart sounds. Absent: systolic murmur, diastolic murmur, rubs, gallop, clicks GI/Abdominal exam: Present: soft, normal bowel sounds. Absent: distended, tenderness, guarding, rebound, rigid Extremities exam: Present: normal inspection, full ROM, normal capillary refill , pedal edema. Absent: tenderness, joint swelling, calf tenderness Back exam: Present: normal inspection Neurological exam: Present: alert, oriented X3, CN II-XII intact Psychiatric exam: Present: normal affect, normal mood Skin exam: Present: warm, dry, intact, normal color. Absent: rash <Sal Vang - Last Filed: 09/30/16 21:04> <Myles Chavez - Last Filed: 09/30/16 23:19> - General Exam Comments Initial Comments: This is a well-developed well-nourished awake alert oriented 3 female (Sal Vang) Course <Sal Vang - Last Filed: 09/30/16 21:04> <Myles Chavez - Last Filed: 09/30/16 23:19> Vital Signs 09/30/16 09/30/16 09/30/16 19:29 19:51 19:52 Temperature 97.8 F Pulse Rate 71 Respiratory 22 Rate Blood Pressure 153/74 O2 Sat by Pulse 91 L 90 L 95 Oximetry 09/30/16 09/30/16 09/30/16 19:57 20:30 20:36 Temperature Pulse Rate 65 64 Respiratory 20 Rate Blood Pressure 135/62 O2 Sat by Pulse 97 99 Oximetry 09/30/16 09/30/16 09/30/16 20:43 21:49 22:35 Temperature 97.4 F L Pulse Rate 68 66 64 Respiratory 18 20 Rate Blood Pressure 149/69 163/91 O2 Sat by Pulse 97 96 Oximetry 09/30/16 09/30/16 09/30/16 22:37 22:40 22:46 Temperature Pulse Rate 68 68 Respiratory 18 20 20 Rate Blood Pressure 136/78 158/83 126/59 O2 Sat by Pulse 98 97 95 Oximetry - Reevaluation(s) Reevaluation #1: 09/30/16 21:04 The patient will be endorsed to Dr. Chavez who will make the final disposition. (Sal Vagn) Medical Decision Making - Lab Data Result diagrams: 09/30/16 20:01 09/30/16 20:01 - EKG Data -: EKG Interpreted by Tn EKG shows normal: sinus rhythm (Sinus rhythm rate is 70. Interval 160 QRS 124 QT/QTC of 432/[address] configuration.) <Sal Vang - Last Filed: 09/30/16 21:04> - Lab Data Result diagrams: 09/30/16 20:01 09/30/16 20:01 <Myles Chavez - Last Filed: 09/30/16 23:19> - Lab Data Lab Results 09/30/16 09/30/16 09/30/16 Range/Units 20:01 20:01 20:01 WBC 8.4 (3.8-10.6) k/uL RBC 3.98 (3.80-5.40) m/uL Hgb 11.6 (11.4-16.0) gm/dL Hct 36.0 (34.0-46.0) % MCV 90.5 (80.0-100.0) fL MCH 29.1 (25.0-35.0) pg MCHC 32.2 (31.0-37.0) g/dL RDW 15.0 (11.5-15.5) % Plt Count 247 (150-450) k/uL Neutrophils % 70 % Lymphocytes % 20 % Monocytes % 7 % Eosinophils % 2 % Basophils % 1 % Neutrophils # 5.9 (1.3-7.7) k/uL Lymphocytes # 1.6 (1.0-4.8) k/uL Monocytes # 0.5 (0-1.0) k/uL Eosinophils # 0.2 (0-0.7) k/uL Basophils # 0.1 (0-0.2) k/uL Hypochromasia Slight PT (9.0-12.0) sec INR (<1.1) APTT (22.0-30.0) sec D-Dimer (<0.60) mg/L FEU Sodium 145 (137-145) mmol/L Potassium 4.2 (3.5-5.1) mmol/L Chloride 103 (98-107) mmol/L Carbon Dioxide 35 H (22-30) mmol/L Anion Gap 7 mmol/L BUN 34 H (7-17) mg/dL Creatinine 1.11 H (0.52-1.04) mg/dL Est GFR (MDRD) Af Amer >60 (>60 ml/min/1.73 sqM) Est GFR (MDRD) Non-Af 50 (>60 ml/min/1.73 sqM) Glucose 85 (74-99) mg/dL POC Glucose (mg/dL) (75-99) mg/dL POC Glu Clinical Trials Systems Administrator ID Calcium 8.8 (8.4-10.2) mg/dL Magnesium 1.6 (1.6-2.3) mg/dL Total Bilirubin 0.5 (0.2-1.3) mg/dL AST 20 (14-36) U/L ALT 33 (9-52) U/L Alkaline Phosphatase 140 H (38-126) U/L Total Creatine Kinase 85 (30-135) U/L CK-MB (CK-2) 1.7 (0.0-2.4) ng/mL CK-MB (CK-2) Rel Index 2.0 Troponin I 0.013 (0.000-0.034) ng/mL NT-Pro-B Natriuret Pep pg/mL Total Protein 6.3 (6.3-8.2) g/dL Albumin 3.5 (3.5-5.0) g/dL 09/30/16 09/30/16 09/30/16 Range/Units 20:01 20:01 22:35 WBC (3.8-10.6) k/uL RBC (3.80-5.40) m/uL Hgb (11.4-16.0) gm/dL Hct (34.0-46.0) % MCV (80.0-100.0) fL MCH (25.0-35.0) pg MCHC (31.0-37.0) g/dL RDW (11.5-15.5) % Plt Count (150-450) k/uL Neutrophils % % Lymphocytes % % Monocytes % % Eosinophils % % Basophils % % Neutrophils # (1.3-7.7) k/uL Lymphocytes # (1.0-4.8) k/uL Monocytes # (0-1.0) k/uL Eosinophils # (0-0.7) k/uL Basophils # (0-0.2) k/uL Hypochromasia PT 11.0 (9.0-12.0) sec INR 1.1 (<1.1) APTT 24.6 (22.0-30.0) sec D-Dimer 0.34 (<0.60) mg/L FEU Sodium (137-145) mmol/L Potassium (3.5-5.1) mmol/L Chloride (98-107) mmol/L Carbon Dioxide (22-30) mmol/L Anion Gap mmol/L BUN (7-17) mg/dL Creatinine (0.52-1.04) mg/dL Est GFR (MDRD) Af Amer (>60 ml/min/1.73 sqM) Est GFR (MDRD) Non-Af (>60 ml/min/1.73 sqM) Glucose (74-99) mg/dL POC Glucose (mg/dL) 85 (75-99) mg/dL POC Glu Clinical Trials Systems Administrator ID Rin Lozoya Calcium (8.4-10.2) mg/dL Magnesium (1.6-2.3) mg/dL Total Bilirubin (0.2-1.3) mg/dL AST (14-36) U/L ALT (9-52) U/L Alkaline Phosphatase (38-126) U/L Total Creatine Kinase (30-135) U/L CK-MB (CK-2) (0.0-2.4) ng/mL CK-MB (CK-2) Rel Index Troponin I (0.000-0.034) ng/mL NT-Pro-B Natriuret Pep 1490 pg/mL Total Protein (6.3-8.2) g/dL Albumin (3.5-5.0) g/dL Disposition <Sal Vang - Last Filed: 09/30/16 21:04> <Myles Chavez - Last Filed: 09/30/16 23:19> Clinical Impression: Congestive heart failure Disposition: HOME SELF-CARE Condition: Fair Instructions: Heart Failure (ED) Additional Instructions: Take an extra dose of lasix on the following two days. Referrals: Dontae Quan DO [Primary Care Provider] - 1-2 days
--- NOTE | 2016-09-30 20:18 | XR ---
EXAMINATION TYPE: XR chest 2V DATE OF EXAM: 09/30/2016 8:12 PM COMPARISON: 07/17/2016 HISTORY: Difficulty breathing TECHNIQUE: Frontal and lateral views of the chest are obtained. FINDINGS: Heart appears enlarged. There is very slight blunting of costophrenic angles. There is mil d pulmonary congestion. There are chest leads. IMPRESSION: Mild congestive heart failure with small pleural effusions. No change compared to old ex am.
[2016-09-30 20:25] LABS: Basophils # (A) 0.1 k/uL (0-0.2); Basophils % (A) 1 %; CH 29.3; CHCM 32.5; Eosinophils # (A) 0.2 k/uL (0-0.7); Eosinophils % (A) 2 %; HDW 3.34; HGB 11.6 gm/dL (11.4-16.0); Hypochromasia Slight; Luc # (Auto) 0.14; Luc % (Auto) 2; Lymphocytes # (A) 1.6 k/uL (1.0-4.8); Lymphocytes % (A) 20 %; MCH 29.1 pg (25.0-35.0); MCHC 32.2 g/dL (31.0-37.0); MCV 90.5 fL (80.0-100.0); Mean Platelet Volume 7.5; Monocytes # (A) 0.5 k/uL (0-1.0); Monocytes % (A) 7 %; Neutrophils # (A) 5.9 k/uL (1.3-7.7); Neutrophils % (A) 70 %; RBC 3.98 m/uL (3.80-5.40); WBC 8.4 k/uL (3.8-10.6); WBC (Perox) 8.55
[2016-09-30 20:33] LABS: ALT 33 U/L (9-52); AST 20 U/L (14-36); Alkaline Phosphatase 140 U/L (38-126); Anion Gap 7 mmol/L; Blood Urea Nitrogen 34 mg/dL (7-17); Calcium 8.8 mg/dL (8.4-10.2); Carbon Dioxide 35 mmol/L (22-30); Chloride 103 mmol/L (98-107); Glucose 85 mg/dL (74-99); Magnesium 1.6 mg/dL (1.6-2.3); Non-African American GFR(MDRD) 50 (>60 ml/min/1.73 sqM); Potassium 4.2 mmol/L (3.5-5.1); Sodium 145 mmol/L (137-145); Total Bilirubin 0.5 mg/dL (0.2-1.3); Total Protein 6.3 g/dL (6.3-8.2)
[2016-09-30 20:51] LABS: INR 1.1 (<1.1); Partial Thromboplastin Time 24.6 sec (22.0-30.0)
[2016-09-30 21:03] LABS: Creatine Kinase MB 1.7 ng/mL (0.0-2.4); Troponin I 0.013 ng/mL (0.000-0.034)
[2016-09-30 21:52] VITALS: TEMP 97.4
[2016-09-30] MEDS ORDERED: NITROGLYCERIN SL TABS 0.4 MG TAB SUBLINGUAL STA (22:13)
[2016-09-30] MEDS ORDERED: MORPHINE SULFATE 4 MG/ML SYRINGE IV STA (22:13)
[2016-09-30] MEDS ORDERED: FUROSEMIDE 10 MG/ML 4 ML VIAL IV STA (22:13)
[2016-09-30 22:38] LABS: Glucose,Whole Blood 85 mg/dL (75-99)
[2016-09-30 22:41] VITALS: PULSE 68; RESP 20
[2016-09-30 22:47] VITALS: BP 126/59
== END 2016-09-30 23:28 | disposition home or self-care (01) ==
LOC: EC 19:22
DX: I11.0 Hypertensive heart disease with heart failure (principal); I50.9 Heart failure, unspecified; E11.9 Type 2 diabetes mellitus without complications; K21.9 Gastro-esophageal reflux disease without esophagitis; E78.5 Hyperlipidemia, unspecified; I48.91 Unspecified atrial fibrillation; Z79.84 Long term (current) use of oral hypoglycemic drugs; Z79.4 Long term (current) use of insulin; Z79.01 Long term (current) use of anticoagulants; Z79.899 Other long term (current) drug therapy
CPT/HCPCS: 99285; 96374; 96375; 96361 ×3; 36415; 94640; 93005; 85379; 83880; 80053; 82550; 82553; 83735; 84484; 85025; 85610; 85730; 71020; J2270; J1940

== ENCOUNTER 2016-11-13 08:50 | Inpatient (IN) | payer OTHER ==
--- NOTE | 2016-11-13 09:20 | ED ---
General Adult HPI - General Chief complaint: Shortness of Breath Stated complaint: tito, leg/feet swelling, chest pain Time Seen by Provider: 11/13/16 08:55 Source: patient, RN notes reviewed, old records reviewed Mode of arrival: wheelchair Limitations: no limitations - History of Present Illness Initial comments: This is a 65-year-old female to the ER for evaluation and short of breath, patient is multiple called conditions contribute any shortness of breath overnight obesity and CHF. Patient with severe weight gain, inability to sleep throughout the night, waking up short of breath and inability to lie flat. Mild cough no congestion no fevers. No chest pain. - Related Data Home Medications Medication Instructions Recorded Confirmed Ferrous Sulfate [Feosol] 325 mg PO BID 07/14/14 11/13/16 Ranitidine HCl 150 mg PO BID 07/14/14 11/13/16 metFORMIN HCL 1,000 mg PO BID 07/14/14 11/13/16 Atorvastatin [Lipitor] 40 mg PO HS 09/28/15 11/13/16 Amiodarone [Cordarone] 200 mg PO DAILY 10/28/15 11/13/16 Nystatin 100,000Unit/gm Cream 1 applic TOPICAL BID 02/10/16 11/13/16 [Mycostatin Cream] Budesonide/Formoterol Fumarate 1 puff INHALATION RT-BID PRN 04/02/16 11/13/16 [Symbicort 160-4.5 Mcg Inhaler] Insulin Glargine [Lantus] 40 unit SQ HS 04/02/16 11/13/16 Insulin Glulisine [Apidra Solostar] 8 unit SQ TID-W/MEALS 04/02/16 11/13/16 Loratadine [Claritin] 10 mg PO DAILY 04/02/16 11/13/16 Levothyroxine Sodium [Synthroid] 25 mcg PO DAILY 07/16/16 11/13/16 Albuterol Inhaler [Ventolin Hfa 2 puff INHALATION RT-Q6H PRN 11/13/16 11/13/16 Inhaler] Diazepam [Valium] 5 mg PO BID PRN 11/13/16 11/13/16 Lisinopril [Zestril] 10 mg PO DAILY 11/13/16 11/13/16 Magnesium Oxide 400 mg PO DAILY 11/13/16 11/13/16 Warfarin Sodium [Coumadin] 2 mg PO DAILY 11/13/16 11/13/16 Previous Rx's Medication Instructions Recorded Metoprolol Tartrate [Lopressor] 50 mg PO BID #60 tab 10/08/15 Ipratropium-Albuterol Nebulize 3 ml INHALATION RT-QID #120 07/19/16 [Duoneb 0.5 mg-3 mg/3 ml Soln] ampul.neb Allergies Allergy/AdvReac Type Severity Reaction Status Date / Time No Known Allergies Allergy Verified 11/13/16 10:01 Review of Systems ROS Statement: Those systems with pertinent positive or pertinent negative responses have been documented in the HPI. ROS Other: All systems not noted in ROS Statement are negative. Past Medical History Past Medical History: Atrial Fibrillation, Asthma, Heart Failure, COPD, Diabetes Mellitus, GERD/Reflux, Hyperlipidemia, Hypertension, Pneumonia, Sleep Apnea/CPAP/BIPAP Additional Past Medical History / Comment(s): Severe obstructive sleep apnea, with an apnea popping index of 92, titrated to a BiPAP pressure of 22/18 yet the patient has not been using her BiPAP machine on a regular basis, morbid obesity, bronchial asthma, approximately 2 fibrillation, bicuspid aortic valve, CHF with an ejection fraction of 45% based on a previous echocardiogram, diabetes mellitus, hyperlipidemia, GE reflux, hypertension, history of cellulitis of the lower extremities patient on the right it has recovered, History of Any Multi-Drug Resistant Organisms: None Reported Past Surgical History: Appendectomy, Cholecystectomy, Heart Catheterization Additional Past Surgical History / Comment(s): 11/03/15 TIMOTHY with cardioversion, cardiac cath, ROSANGELA CATARACTS Past Anesthesia/Blood Transfusion Reactions: No Reported Reaction Past Psychological History: No Psychological Hx Reported Smoking Status: Never smoker Past Alcohol Use History: None Reported Past Drug Use History: None Reported - Past Family History Mother Family Medical History: Cancer Additional Family Medical History / Comment(s): SKIN AND LUNG CANCER "MESOTHELIOMA" Father Family Medical History: CVA/TIA General Exam Limitations: no limitations General appearance: alert, in no apparent distress, obese Head exam: Present: atraumatic, normocephalic, normal inspection Eye exam: Present: normal appearance, PERRL, EOMI. Absent: scleral icterus, conjunctival injection, periorbital swelling ENT exam: Present: normal exam, mucous membranes moist Neck exam: Present: normal inspection. Absent: tenderness, meningismus, lymphadenopathy Respiratory exam: Present: normal lung sounds bilaterally, rales, accessory muscle use, decreased breath sounds, prolonged expiratory. Absent: respiratory distress, wheezes, rhonchi, stridor Cardiovascular Exam: Present: normal rhythm, tachycardia, normal heart sounds. Absent: systolic murmur, diastolic murmur, rubs, gallop, clicks GI/Abdominal exam: Present: soft, normal bowel sounds. Absent: distended, tenderness, guarding, rebound, rigid Extremities exam: Present: normal inspection, full ROM, normal capillary refill. Absent: tenderness, pedal edema, joint swelling, calf tenderness Back exam: Present: normal inspection Neurological exam: Present: alert, oriented X3, CN II-XII intact Psychiatric exam: Present: normal affect, normal mood Skin exam: Present: warm, dry, intact, normal color. Absent: rash Course Vital Signs 11/13/16 11/13/16 11/13/16 08:52 09:22 09:38 Temperature 98.0 F Pulse Rate 79 76 Respiratory 22 18 22 Rate Blood Pressure 161/70 148/68 O2 Sat by Pulse 85 L 91 L Oximetry 11/13/16 10:38 Temperature Pulse Rate 72 Respiratory 22 Rate Blood Pressure 148/67 O2 Sat by Pulse 91 L Oximetry - Reevaluation(s) Reevaluation #1: 11/13/16 11:29 Patient is improved with oxygenation EKG Findings - EKG Comments: EKG Findings:: EKG shows normal sinus MSA 9, KS 136, QRS 122, QTc 467 Medical Decision Making - Medical Decision Making 65 few had ER with significant CHF and symptoms of CHF PND or orthopnea severe shortness of breath, swelling and edema. Patient will be admitted for diuresis and monitoring of cardiopulmonary status - Lab Data Result diagrams: 11/13/16 09:15 11/13/16 09:15 Lab Results 11/13/16 11/13/16 11/13/16 Range/Units 09:15 09:15 09:15 WBC 10.1 (3.8-10.6) k/uL RBC 4.22 (3.80-5.40) m/uL Hgb 12.2 (11.4-16.0) gm/dL Hct 38.7 (34.0-46.0) % MCV 91.6 (80.0-100.0) fL MCH 28.8 (25.0-35.0) pg MCHC 31.4 (31.0-37.0) g/dL RDW 15.2 (11.5-15.5) % Plt Count 196 (150-450) k/uL Neutrophils % 85 % Lymphocytes % 9 % Monocytes % 4 % Eosinophils % 1 % Basophils % 1 % Neutrophils # 8.5 H (1.3-7.7) k/uL Lymphocytes # 0.9 L (1.0-4.8) k/uL Monocytes # 0.4 (0-1.0) k/uL Eosinophils # 0.1 (0-0.7) k/uL Basophils # 0.1 (0-0.2) k/uL Hypochromasia Slight PT (9.0-12.0) sec INR (<1.2) APTT (22.0-30.0) sec Sodium 142 (137-145) mmol/L Potassium 4.8 (3.5-5.1) mmol/L Chloride 107 (98-107) mmol/L Carbon Dioxide 25 (22-30) mmol/L Anion Gap 10 mmol/L BUN 41 H (7-17) mg/dL Creatinine 1.20 H (0.52-1.04) mg/dL Est GFR (MDRD) Af Amer 55 (>60 ml/min/1.73 sqM) Est GFR (MDRD) Non-Af 45 (>60 ml/min/1.73 sqM) Glucose 198 H (74-99) mg/dL Calcium 8.9 (8.4-10.2) mg/dL Magnesium 1.6 (1.6-2.3) mg/dL Total Bilirubin 0.6 (0.2-1.3) mg/dL AST 26 (14-36) U/L ALT 36 (9-52) U/L Alkaline Phosphatase 126 (38-126) U/L Total Creatine Kinase 139 H (30-135) U/L CK-MB (CK-2) 3.1 H* (0.0-2.4) ng/mL CK-MB (CK-2) Rel Index 2.2 Troponin I 0.012 (0.000-0.034) ng/mL NT-Pro-B Natriuret Pep pg/mL Total Protein 5.8 L (6.3-8.2) g/dL Albumin 3.4 L (3.5-5.0) g/dL 11/13/16 11/13/16 Range/Units 09:15 09:15 WBC (3.8-10.6) k/uL RBC (3.80-5.40) m/uL Hgb (11.4-16.0) gm/dL Hct (34.0-46.0) % MCV (80.0-100.0) fL MCH (25.0-35.0) pg MCHC (31.0-37.0) g/dL RDW (11.5-15.5) % Plt Count (150-450) k/uL Neutrophils % % Lymphocytes % % Monocytes % % Eosinophils % % Basophils % % Neutrophils # (1.3-7.7) k/uL Lymphocytes # (1.0-4.8) k/uL Monocytes # (0-1.0) k/uL Eosinophils # (0-0.7) k/uL Basophils # (0-0.2) k/uL Hypochromasia PT 11.0 (9.0-12.0) sec INR 1.1 (<1.2) APTT 22.2 (22.0-30.0) sec Sodium (137-145) mmol/L Potassium (3.5-5.1) mmol/L Chloride (98-107) mmol/L Carbon Dioxide (22-30) mmol/L Anion Gap mmol/L BUN (7-17) mg/dL Creatinine (0.52-1.04) mg/dL Est GFR (MDRD) Af Amer (>60 ml/min/1.73 sqM) Est GFR (MDRD) Non-Af (>60 ml/min/1.73 sqM) Glucose (74-99) mg/dL Calcium (8.4-10.2) mg/dL Magnesium (1.6-2.3) mg/dL Total Bilirubin (0.2-1.3) mg/dL AST (14-36) U/L ALT (9-52) U/L Alkaline Phosphatase (38-126) U/L Total Creatine Kinase (30-135) U/L CK-MB (CK-2) (0.0-2.4) ng/mL CK-MB (CK-2) Rel Index Troponin I (0.000-0.034) ng/mL NT-Pro-B Natriuret Pep 1700 pg/mL Total Protein (6.3-8.2) g/dL Albumin (3.5-5.0) g/dL - Radiology Data Radiology results: report reviewed (Chest x-ray positive for CHF), image reviewed Critical Care Time Critical Care Time: Yes Total Critical Care Time: 31 Disposition Clinical Impression: Congestive heart failure, Systolic CHF, acute on chronic, Acute exacerbation of chronic obstructive airways disease, Hypoxia Disposition: ADMITTED IP TO THIS HOSP Condition: Undetermined Referrals: Dontae Quan DO [Primary Care Provider] - 1-2 days
[2016-11-13 09:32] LABS: Basophils # (A) 0.1 k/uL (0-0.2); Basophils % (A) 1 %; CH 28.7; CHCM 31.5; Eosinophils # (A) 0.1 k/uL (0-0.7); Eosinophils % (A) 1 %; HCT 38.7 % (34.0-46.0); HGB 12.2 gm/dL (11.4-16.0); Hypochromasia Slight; Luc % (Auto) 1; Lymphocytes # (A) 0.9 k/uL (1.0-4.8); Lymphocytes % (A) 9 %; MCH 28.8 pg (25.0-35.0); MCHC 31.4 g/dL (31.0-37.0); MCV 91.6 fL (80.0-100.0); Mean Platelet Volume 7.8; Monocytes # (A) 0.4 k/uL (0-1.0); Monocytes % (A) 4 %; Neutrophils # (A) 8.5 k/uL (1.3-7.7); Neutrophils % (A) 85 %; RBC 4.22 m/uL (3.80-5.40); RDW 15.2 % (11.5-15.5); WBC 10.1 k/uL (3.8-10.6)
[2016-11-13 09:42] LABS: Calcium 8.9 mg/dL (8.4-10.2); INR 1.1 (<1.2); Magnesium 1.6 mg/dL (1.6-2.3); Partial Thromboplastin Time 22.2 sec (22.0-30.0); Potassium 4.8 mmol/L (3.5-5.1); Total Bilirubin 0.6 mg/dL (0.2-1.3); Total Protein 5.8 g/dL (6.3-8.2)
--- NOTE | 2016-11-13 09:51 | XR ---
EXAMINATION TYPE: XR chest 2V DATE OF EXAM: 11/13/2016 COMPARISON: 09/30/16 HISTORY: Shortness of breath FINDINGS: Noted is pulmonary venous congestion with scattered infiltrates. There is also cardiomegaly and small effusions. IMPRESSION: Findings compatible with congestive failure. Infiltrates of other etiology are not excluded. Clinical correlation and progress studies are recommended.
[2016-11-13 10:14] LABS: Troponin I 0.012 ng/mL (0.000-0.034)
[2016-11-13 10:19] LABS: Creatine Kinase MB 3.1 ng/mL (0.0-2.4)
[2016-11-13] MEDS ORDERED: FUROSEMIDE 10 MG/ML 4 ML VIAL IV STA (11:27)
[2016-11-13 12:41] LABS: Glucose,Whole Blood 149 mg/dL (75-99)
[2016-11-13 14:26] VITALS: BMI 47.2
[2016-11-13] MEDS ORDERED: DIAZEPAM 5 MG TAB PO PRN (16:16)
--- NOTE | 2016-11-13 16:36 | P.HPIM ---
History of Present Illness Patient is 65-year-old female with moderate pulmonary hypertension morbid obesity sleep apnea and doesn't use CPAP machine at home and the congestive heart failure diastolic dysfunction probable right-sided heart failure from cor pulmonale given encumbrance of shortness of breath last night and unable to sleep because of that and patient was complaining of orthopnea and possible proximal nocturnal dyspnea. Patient has worsening pedal edema for about a week patient denied any cough denied any fever or chills patient denied any nausea or vomiting. Patient has mildly elevated BNP along with pulmonary edema on the chest x-ray although clinically unable to stay is is JVD patient does have 2+ pitting pedal edema extending up to the knee. He was also complained of pressure-like chest pain for which cariology evaluated patient. Please refer to their documentation for EKG changes and troponin. He was started on IV Lasix and patient is urinating well since then. We will wait for tomorrow renal function before I start her on RODNEY inhibitor as patient has normal systolic function as per the previous echocardiogram. Uses 3 L at nighttime oxygen for sleep apnea as she didn't doesn't like CPAP machine Review of Systems REVIEW OF SYSTEMS: CONSTITUTIONAL: No fever, no malaise, no fatigue. HEENT: No recent visual problems or hearing problems. Denied any sore throat. CARDIOVASCULAR: As per HPI PULMONARY: As per HPI GASTROINTESTINAL: No diarrhea, no nausea, no vomiting, no abdominal pain. Normoactive bowel sounds. NEUROLOGICAL: No headaches, no weakness, no numbness. HEMATOLOGICAL: Denies any bleeding or petechiae. GENITOURINARY: Denies any burning micturition, frequency, or urgency. MUSCULOSKELETAL/RHEUMATOLOGICAL: Denies any joint pain, swelling, or any muscle pain. ENDOCRINE: Denies any polyuria or polydipsia. The rest of the 14-point review of systems is negative. Past Medical History Past Medical History: Atrial Fibrillation, Asthma, Heart Failure, COPD, Diabetes Mellitus, GERD/Reflux, Hyperlipidemia, Hypertension, Pneumonia, Sleep Apnea/CPAP/BIPAP Additional Past Medical History / Comment(s): Severe obstructive sleep apnea, with an apnea popping index of 92-wears O2 at 3L./NC at hs, morbid obesity, bronchial asthma, paroxysmal atrial fibrillation, CHF with an ejection fraction of 45% based on a previous echocardiogram, IDDM type II, history of cellulitis right lower extremitie- recovered, History of Any Multi-Drug Resistant Organisms: None Reported Past Surgical History: Appendectomy, Cholecystectomy, Heart Catheterization Additional Past Surgical History / Comment(s): 11/03/15 TIMOTHY with cardioversion, cardiac cath, ROSANGELA CATARACTS Past Anesthesia/Blood Transfusion Reactions: No Reported Reaction Smoking Status: Never smoker - Past Family History Mother Family Medical History: Cancer Additional Family Medical History / Comment(s): SKIN AND LUNG CANCER "MESOTHELIOMA" Father Family Medical History: CVA/TIA Medications and Allergies Home Medications Medication Instructions Recorded Confirmed Type Ferrous Sulfate [Feosol] 325 mg PO BID 07/14/14 11/13/16 History Ranitidine HCl 150 mg PO BID 07/14/14 11/13/16 History metFORMIN HCL 1,000 mg PO BID 07/14/14 11/13/16 History Atorvastatin [Lipitor] 40 mg PO HS 09/28/15 11/13/16 History Amiodarone [Cordarone] 200 mg PO DAILY 10/28/15 11/13/16 History Nystatin 100,000Unit/gm Cream 1 applic TOPICAL BID 02/10/16 11/13/16 History [Mycostatin Cream] Budesonide/Formoterol Fumarate 1 puff INHALATION RT-BID PRN 04/02/16 11/13/16 History [Symbicort 160-4.5 Mcg Inhaler] Insulin Glargine [Lantus] 40 unit SQ HS 04/02/16 11/13/16 History Insulin Glulisine [Apidra Solostar] 8 unit SQ TID-W/MEALS 04/02/16 11/13/16 History Loratadine [Claritin] 10 mg PO DAILY 04/02/16 11/13/16 History Levothyroxine Sodium [Synthroid] 25 mcg PO DAILY 07/16/16 11/13/16 History Albuterol Inhaler [Ventolin Hfa 2 puff INHALATION RT-Q6H PRN 11/13/16 11/13/16 History Inhaler] Diazepam [Valium] 5 mg PO BID PRN 11/13/16 11/13/16 History Lisinopril [Zestril] 10 mg PO DAILY 11/13/16 11/13/16 History Magnesium Oxide 400 mg PO DAILY 07/17/17 07/17/17 History Warfarin Sodium [Coumadin] 2 mg PO DAILY 11/13/16 11/13/16 History Allergies Allergy/AdvReac Type Severity Reaction Status Date / Time No Known Allergies Allergy Verified 11/13/16 10:01 Physical Exam Vitals: Vital Signs Temp Pulse Pulse Resp BP BP Pulse Ox 11/13/16 15:41 16 11/13/16 15:32 96.6 F L 72 16 143/78 97 11/13/16 12:30 98.2 F 75 22 149/81 95 11/13/16 11:46 96.9 F L 72 18 150/82 96 11/13/16 10:38 72 22 148/67 91 L 11/13/16 09:38 76 22 148/68 91 L 11/13/16 09:22 18 11/13/16 08:52 98.0 F 79 22 161/70 85 L Intake and Output 11/13/16 11/13/16 11/13/16 06:59 14:59 22:59 Output Total 1200 Balance -1200 Output: Urine 1200 Other: Voiding Method Toilet Toilet Weight 113.398 kg Patient Weight 11/14/16 06:59 Weight 113.398 kg PHYSICAL EXAMINATION: GENERAL: The patient is alert and oriented x3, not in any acute distress. Well developed, well nourished. obese HEENT: Pupils are round and equally reacting to light. EOMI. No scleral icterus. No conjunctival pallor. Normocephalic, atraumatic. No pharyngeal erythema. No thyromegaly. CARDIOVASCULAR: S1 and S2 present. No murmurs, rubs, or gallops. Would assess JVD because of her neck contour PULMONARY: Chest is clear to auscultation, no wheezing or crackles. ABDOMEN: Soft, nontender, nondistended, normoactive bowel sounds. No palpable organomegaly. MUSCULOSKELETAL: No joint swelling or deformity. EXTREMITIES: No cyanosis, clubbing, does have 2+ pitting pedal edema NEUROLOGICAL: Gross neurological examination did not reveal any focal deficits. SKIN: No rashes. Results CBC & Chem 7: 11/13/16 09:15 11/13/16 09:15 Labs: Abnormal Lab Results - Last 24 Hours (Table) 11/13/16 11/13/16 11/13/16 Range/Units 09:15 09:15 09:15 Neutrophils # 8.5 H (1.3-7.7) k/uL Lymphocytes # 0.9 L (1.0-4.8) k/uL BUN 41 H (7-17) mg/dL Creatinine 1.20 H (0.52-1.04) mg/dL Glucose 198 H (74-99) mg/dL POC Glucose (mg/dL) (75-99) mg/dL Total Creatine Kinase 139 H (30-135) U/L CK-MB (CK-2) 3.1 H* (0.0-2.4) ng/mL Total Protein 5.8 L (6.3-8.2) g/dL Albumin 3.4 L (3.5-5.0) g/dL 11/13/16 Range/Units 12:25 Neutrophils # (1.3-7.7) k/uL Lymphocytes # (1.0-4.8) k/uL BUN (7-17) mg/dL Creatinine (0.52-1.04) mg/dL Glucose (74-99) mg/dL POC Glucose (mg/dL) 149 H (75-99) mg/dL Total Creatine Kinase (30-135) U/L CK-MB (CK-2) (0.0-2.4) ng/mL Total Protein (6.3-8.2) g/dL Albumin (3.5-5.0) g/dL Thrombosis Risk Factor Assmnt - Choose All That Apply Any of the Below Risk Factors Present?: Yes Each Factor Represents 1 point: Abnormal pulmonary function (COPD), Heart failure (<1month), Obesity (BMI >25), Serious lung disease incl. pneumonia (< 1month) Other Risk Factors: Yes Each Risk Factor Represents 2 Points: Age 61-74 years Other congenital or acquired thrombophilia - If yes, enter type in comment: No Thrombosis Risk Factor Assessment Total Risk Factor Score: 6 Thrombosis Risk Factor Assessment Level: High Risk Assessment and Plan Plan: 1 acute hypoxic respiratory failure: Secondary to restart failure exacerbation patient probably has diastolic dysfunction with acute exacerbation. Patient pedal edema is mostly from cor pulmonale probably. Patient will continue on IV Lasix will await until tomorrow to reassess his kidney function before I start her on RODNEY inhibitor. As patient's heart failure is diastolic dysfunction. 2 moderate pulmonary hypertension with possible cor pulmonary 3obstructive sleep apnea patient doesn't CPAP at home 4 morbid obesity #5 type 2 diabetes mellitus controlled with her home regimen and a continue her home regimen and titrate as needed #6 bronchial asthma without any acute exacerbation
[2016-11-13 16:58] LABS: Glucose,Whole Blood 191 mg/dL (75-99)
[2016-11-13] MEDS: INSULIN LISPRO (humaLOG) 300 UNIT/3 ML VIAL SQ SCH ×3 (17:43→20:45)
[2016-11-13] MEDS ORDERED: WARFARIN 5 MG TAB PO ONE (18:00)
--- NOTE | 2016-11-13 18:02 | CONS ---
This is a 65 year old lady, a patient of Dr. Dontae Quan who presented to the Emergency Room with complaints of increasing shortness of breath, weight gain, going on for the last three or four days. She indicates to me that she has been very compliant with medications but unfortunately, her PT/INR is 1.1. I am not sure if she is really compliant with medicines or not. Her complaints of increasing shortness of breath, weight gain, have gotten worse over the last few days and she came into the emergency room. She was found to be in congestive heart failure and has been hospitalized. She does not have any chest pain. She has no palpitations, syncope or near syncope. PAST MEDICAL HISTORY: 1. Type 2 diabetes mellitus. 2. Hypercholesterolemia. 3. Paroxysmal atrial fibrillation. 4. History of hypothyroidism on replacement therapy. 5. History of bronchial asthma. 6. Sleep apnea, obstructive on CPAP. 7. History of coronary angiography that was performed about a year and one half ago which revealed no obstructive CAD. She is status post cholecystectomy and appendectomy and TIMOTHY with cardioversion in the past. MEDICATIONS: At home include: 1. Metoprolol tartrate 50 mg b.i.d. 2. Zestril 10 mg daily. 3. Warfarin 2 mg daily. 4. Levothyroxine 25 mcg daily. 5. Albuterol inhaler. 6. Amiodarone 200 mg daily. 7. Atorvastatin 40 mg daily. 8. Insulin. 9. Lantus. 10. Apidra. 11. Metformin 1000 mg b.i.d. On examination, blood pressure is 140/80. Pulse rate is about 70 per minute, regular. HEENT: Unremarkable. Fundus was not examined by me. Neck is supple. There is JVD of at least 1 cm. No carotid bruit. Heart exam reveals S1, S2 heard normally with a short systolic murmur heard at the base. Lungs reveal diminished air entry over both bases. Abdomen is soft, nontender. Lower extremities revealed 1 to 2+ edema bilaterally. Pulses are diminished. Central nervous system grossly no focal deficits. EKG revealed sinus mechanism , IVCD, no acute changes. Laboratory data suggests initial troponin is normal. Her BNP is 1700. Renal function is mildly abnormal with a BUN of 41 and a creatinine 1.2. Chest x- ray suggests cardiomegaly with bilateral small effusions and mild pulmonary vascular congestion. IMPRESSION: 1. Exacerbation of congestive heart failure, probably diastolic. 2. Paroxysmal atrial fibrillation, now in sinus. 3. History of type 2 diabetes mellitus. 4. Hypertension. 5. History of TIMOTHY and cardioversion in the past for atrial fib, now maintaining sinus rhythm. 6. History of hypercholesterolemia. RECOMMENDATIONS: I am recommending that we will cautiously diurese her, resume most of her medications and perform additional troponin level and also repeat an echocardiogram and then make further recommendations. The patient's PT is suboptimal. She is probably not taking the Coumadin correctly. We will give 5 mg today and check PT/INR daily. Discussed my thoughts in detail with the patient and her daughter. Thank you very much for the consultation. PANCHITO
[2016-11-13 18:50] LABS: Troponin I 0.017 ng/mL (0.000-0.034)
[2016-11-13 18:51] LABS: Creatine Kinase MB 4.4 ng/mL (0.0-2.4)
[2016-11-13] MEDS ORDERED: FUROSEMIDE 10 MG/ML 4 ML VIAL IV SCH (20:00)
[2016-11-13 20:39] LABS: Glucose,Whole Blood 170 mg/dL (75-99)
[2016-11-13] MEDS: FUROSEMIDE 10 MG/ML 4 ML VIAL IV SCH (20:41)
[2016-11-13] MEDS: FAMOTIDINE 20 MG TAB PO SCH (20:41)
[2016-11-13] MEDS: METOPROLOL TARTRATE 50 MG TAB PO SCH (20:41)
[2016-11-13] MEDS: INSULIN GLARGINE 100 UNIT/ML 10 ML VIAL SQ SCH (20:44)
[2016-11-13] MEDS: NYSTATIN 100,000UNIT/GM CREAM 30 GM TUBE TOPICAL SCH (20:45)
[2016-11-13] MEDS: IPRATROPIUM-ALBUTEROL 3 ML NEB INHALATION SCH (20:57)
[2016-11-13] MEDS: SYMBICORT 160-4.5 MCG INHALER INHALATION SCH (20:57)
[2016-11-13 22:04] LABS: Hemoglobin A1C 6.2 % (4.2-6.1)
[2016-11-13 22:45] LABS: Troponin I 0.017 ng/mL (0.000-0.034)
[2016-11-13 22:47] LABS: Creatine Kinase MB 3.7 ng/mL (0.0-2.4)
[2016-11-14 05:50] LABS: Glucose,Whole Blood 191 mg/dL (75-99)
[2016-11-14] MEDS: LEVOTHYROXINE 25 MCG TAB PO SCH (07:02)
[2016-11-14] MEDS: INSULIN LISPRO (humaLOG) 300 UNIT/3 ML VIAL SQ SCH ×7 (07:02→21:04)
[2016-11-14 07:17] LABS: Anion Gap 8 mmol/L; Blood Urea Nitrogen 31 mg/dL (7-17); Calcium 8.9 mg/dL (8.4-10.2); Carbon Dioxide 33 mmol/L (22-30); Chloride 102 mmol/L (98-107); Glucose 171 mg/dL (74-99); Non-African American GFR(MDRD) 51 (>60 ml/min/1.73 sqM); Potassium 4.4 mmol/L (3.5-5.1); Sodium 143 mmol/L (137-145)
[2016-11-14 07:18] LABS: INR 1.1 (<1.2); Prothrombin Time 10.7 sec (9.0-12.0)
[2016-11-14] MEDS ORDERED: LISINOPRIL 10 MG TAB PO SCH (09:00)
[2016-11-14] MEDS: IPRATROPIUM-ALBUTEROL 3 ML NEB INHALATION SCH ×4 (09:07→18:57)
[2016-11-14] MEDS: SYMBICORT 160-4.5 MCG INHALER INHALATION SCH ×2 (09:07→18:57)
[2016-11-14] MEDS: NYSTATIN 100,000UNIT/GM CREAM 30 GM TUBE TOPICAL SCH ×2 (09:09→19:56)
[2016-11-14] MEDS: FUROSEMIDE 10 MG/ML 4 ML VIAL IV SCH ×2 (09:11→19:56)
[2016-11-14] MEDS: FAMOTIDINE 20 MG TAB PO SCH (09:11)
[2016-11-14] MEDS: ATORVASTATIN 40 MG TAB PO SCH (09:11)
[2016-11-14] MEDS: AMIODARONE 200 MG TAB PO SCH (09:11)
[2016-11-14] MEDS: LORATADINE 10 MG TAB PO SCH (09:12)
[2016-11-14] MEDS: METOPROLOL TARTRATE 50 MG TAB PO SCH ×2 (09:12→19:56)
--- NOTE | 2016-11-14 10:33 | ECHOF ---
Referral Reason:CHF MEASUREMENTS -------- HEIGHT: 154.9 cm WEIGHT: 113.4 kg BP: 149/81 RVIDd: 3.1 cm (< 3.3) IVSd: 1.4 cm (0.6 - 1.1) LVIDd: 4.7 cm (3.9 - 5.3) LVPWd: 1.4 cm (0.6 - 1.1) IVSs: 1.9 cm LVIDs: 3.2 cm LVPWs: 1.9 cm LAESV Index (A-L): 19.18 ml/m Ao Diam: 3.3 cm (2.0 - 3.7) AV Cusp: 1.0 cm (1.5 - 2.6) LA Diam: 3.6 cm (2.7 - 3.8) MV EXCURSION: 16.074 mm (> 18.000) MV EF SLOPE: 77 mm/s (70 - 150) EPSS: 0.8 cm MV E Kuldeep: 1.05 m/s MV DecT: 235 ms MV A Kuldeep: 0.57 m/s MV E/A Ratio: 1.85 AV maxP.53 mmHg AV meanP.85 mmHg RAP: 5.00 mmHg RVSP: 67.35 mmHg FINDINGS -------- Sinus rhythm. This was a technically difficult study with suboptimal views. The left ventricular size is normal. There is moderate concentric left ventricular hypertrophy. Overall left ventricular systolic function is normal with, an EF between 55 - 60 %. The right ventricle is normal in size and function. Normal LA size by volume 22+/-6 ml/m2. The right atrium is normal in size. 1.5mg of Definity was utilized for enhancement of images Aortic valve is trileaflet and is mildly thickened. There is no evidence of aortic regurgitation. Mild aortic stenosis with peak/mean pressure gradient of 23.53mmHg / 13.85mmHg , the aortic valve area by continuity equation is 1.3cm. Mild mitral annular calcification present. There is trace to mild mitral regurgitation. Mild tricuspid regurgitation present. There is moderate to severe pulmonary hypertension. The right ventricular systolic pressure, as measured by Doppler, is 67.35mmHg. The pulmonic valve was not well visualized. There is no pulmonic regurgitation present. The aortic root size is normal. IVC Not well visulized. There is no pericardial effusion. CONCLUSIONS -------- 1. Sinus rhythm. 2. Mild mitral annular calcification present. 3. There is trace to mild mitral regurgitation. 4. Mild tricuspid regurgitation present. 5. There is moderate to severe pulmonary hypertension. 6. The right ventricular systolic pressure, as measured by Doppler, is 67.35mmHg. 7. The pulmonic valve was not well visualized. 8. There is no pulmonic regurgitation present. 9. The aortic root size is normal. 10. IVC Not well visulized. 11. There is no pericardial effusion. 12. This was a technically difficult study with suboptimal views. 13. There is moderate concentric left ventricular hypertrophy. 14. Overall left ventricular systolic function is normal with, an EF between 55 - 60 %. 15. Normal LA size by volume 22+/-6 ml/m2. 16. 1.5mg of Definity was utilized for enhancement of images 17. Aortic valve is trileaflet and is mildly thickened. 18. There is no evidence of aortic regurgitation. 19. Mild aortic stenosis with peak/mean pressure gradient of 23.53mmHg / 13.85mmHg , the aortic valve area by continuity equation is 1.3cm. [employer]IER PACKER: Arron Jin RDCS
[2016-11-14 12:07] LABS: Glucose,Whole Blood 254 mg/dL (75-99)
--- NOTE | 2016-11-14 12:57 | P.PN ---
Subjective This is a pleasant 65-year-old female patient who follows with Dr. Mccormick in the office. She has a past medical history significant for hyperlipidemia, paroxysmal atrial fibrillation, hypothyroidism, asthma, obstructive sleep apnea with a CPAP, type 2 diabetes, and previous coronary angiography that revealed no obstructive CAD. She presented to the emergency room with increasing shortness of breath and weight gain that it been going on for the last 3 or 4 days. Laboratory values showed BNP of 1700, INR 1.1 in a patient who is supposedly on Coumadin, and a chest x-ray showed findings compatible with congestive failure. She has been on Lasix 40 mg IV push every 12 hours and has been diuresing well. Patient is feeling quite a bit better state, breathing a little easier. Edema has improved some. 2-D echo with Doppler performed yesterday showed an ejection fraction of 55-60% with moderate to severe pulmonary hypertension. INR remains 1.1 after 5 mg of Coumadin last night. Objective - Vital Signs Vital signs: Vital Signs Temp 97 F L 11/14/16 08:00 Pulse 76 11/14/16 09:14 Resp 16 11/14/16 08:00 BP 118/70 11/14/16 08:00 Pulse Ox 92 L 11/14/16 09:05 Intake & Output 11/13/16 11/14/16 11/14/16 18:59 06:59 18:59 Intake Total 0 237 Output Total 1200 800 Balance -1200 -800 237 Weight 113.398 kg 123.3 kg Intake: Oral 0 237 Output: Urine 1200 800 Other: Voiding Method Toilet Toilet # Voids 1 2 - Exam PHYSICAL EXAMINATION: HEENT: Head is atraumatic, normocephalic. Pupils equal, round. Neck is supple. There is no elevated jugular venous pressure. HEART EXAMINATION: Heart sounds regular, S1 and S2 normal with a systolic murmur. CHEST EXAMINATION: Lungs rick diminished air entry bilateral bases. No chest wall tenderness is noted on palpation or with deep breathing. ABDOMEN: Soft, nontender. Bowel sounds are heard. No organomegaly noted. EXTREMITIES: Diminished peripheral pulses with evidence of improving peripheral edema and no calf tenderness noted. NEUROLOGIC patient is awake, alert and oriented x3. . - Labs CBC & Chem 7: 11/13/16 09:15 11/14/16 06:23 Labs: Abnormal Lab Results - Last 24 Hours (Table) 11/13/16 11/13/16 11/13/16 Range/Units 09:15 16:56 17:51 Carbon Dioxide (22-30) mmol/L BUN (7-17) mg/dL Creatinine (0.52-1.04) mg/dL Glucose (74-99) mg/dL POC Glucose (mg/dL) 191 H (75-99) mg/dL Hemoglobin A1c 6.2 H (4.2-6.1) % CK-MB (CK-2) 4.4 H* (0.0-2.4) ng/mL 11/13/16 11/13/16 11/14/16 Range/Units 20:31 21:31 05:49 Carbon Dioxide (22-30) mmol/L BUN (7-17) mg/dL Creatinine (0.52-1.04) mg/dL Glucose (74-99) mg/dL POC Glucose (mg/dL) 170 H 191 H (75-99) mg/dL Hemoglobin A1c (4.2-6.1) % CK-MB (CK-2) 3.7 H* (0.0-2.4) ng/mL 11/14/16 11/14/16 Range/Units 06:23 11:35 Carbon Dioxide 33 H (22-30) mmol/L BUN 31 H (7-17) mg/dL Creatinine 1.08 H (0.52-1.04) mg/dL Glucose 171 H (74-99) mg/dL POC Glucose (mg/dL) 254 H (75-99) mg/dL Hemoglobin A1c (4.2-6.1) % CK-MB (CK-2) (0.0-2.4) ng/mL Assessment and Plan Plan: Assessment and plan #1 acute on chronic diastolic congestive heart failure with an ejection fraction of 55-60% #2 paroxysmal atrial fibrillation, currently in sinus rhythm, status post cardioversion #3 type 2 diabetes mellitus #4 hypertension #5 hyperlipidemia #6 pulmonary hypertension From cardiology's perspective we'll continue to cautiously diurese her. Patient 's INR remains subtherapeutic we will give the patient 5 mg of Coumadin daily and monitor her INR. Further recommendations to follow. CHASSIS ENGINEER note has been reviewed, I agree with a documented findings and plan of care. Patient was seen and examined.
--- NOTE | 2016-11-14 15:25 | CDI ---
In responding to this query, please exercise your independent professional judgment. The [facility] Coding Staff and Clinical Documentation Specialists appreciate your assistance in clarifying documentation, maintaining compliance with coding guidelines, accurately documenting patients condition and capturing severity of illness. The fact that a question is asked does not imply that any particular answer is desired or expected. Communication forms are a method of clarifying documentation and are not made part of the Legal Health Record. Thank you in advance for your clarification. Last Revision, February 2015 Kayley Zavaleta [address] [facility] [place] [address] Documentation Clarification Form Date: 11/14/2016 3:17:00 PM From: Diana Isaacs, CCS, CCDS Admit Date: 11/13/2016 11:27:00 AM Patient Name: Bindu Nichols Visit Number: [id number] Discharge Date: Dr. Garo Blankenship: Per the History & Physical documentation.... "congestive heart failure diastolic dysfunction probable right-sided heart failure from cor pulmonale..." Patient history/risk factors: Diastolic CHF, secondary pulmonary hypertension, Morbid obesity, Obstructive Sleep Apnea requiring BiPAP. Clinical Indicators: Presented with SOB, severe weight gain, inability to sleep through the night, pedal edema. Lab findings: BNP 1700, BUN 41, Cr 1.20, Glucose 198, Elevated CKMB. Radiology findings: CXR: CHF, infiltrates not excluded. Vital Signs: R 22, BP 161/70, PO 85 BiPAP Treatment: IV Lasix, Insulin sc, Coumadin po, Albuterol INH updraft txs, BiPAP, O2 3Lnc Consults: Cardiology, Dietitian (CHF) In your professional opinion, can you please clarify the acuity of the documented cor pulmonale? Acute Chronic Acute on Chronic Other Unable to determine Please document in your progress notes and discharge summary in order to capture severity of illness and risk of mortality. Include clinical findings that support your diagnosis. FYI: Press F11 to launch patient chart. ___x__ Place X here if this finding has no clinical significance, is not applicable or if you are not able to provide any additional documentation. Thank You. PANCHITO
[2016-11-14 17:06] LABS: Glucose,Whole Blood 205 mg/dL (75-99)
[2016-11-14] MEDS: WARFARIN 5 MG TAB PO SCH (17:48)
[2016-11-14 20:46] LABS: Glucose,Whole Blood 229 mg/dL (75-99)
[2016-11-14] MEDS: INSULIN GLARGINE 100 UNIT/ML 10 ML VIAL SQ SCH (21:03)
[2016-11-15 03:52] VITALS: RESP 14
[2016-11-15 05:06] LABS: INR 1.1 (<1.2); Prothrombin Time 10.9 sec (9.0-12.0)
[2016-11-15 05:07] LABS: Anion Gap 12 mmol/L; Blood Urea Nitrogen 32 mg/dL (7-17); Calcium 9.1 mg/dL (8.4-10.2); Carbon Dioxide 31 mmol/L (22-30); Chloride 98 mmol/L (98-107); Glucose 182 mg/dL (74-99); Non-African American GFR(MDRD) 50 (>60 ml/min/1.73 sqM); Potassium 4.3 mmol/L (3.5-5.1); Sodium 141 mmol/L (137-145)
[2016-11-15 05:55] LABS: Glucose,Whole Blood 197 mg/dL (75-99)
[2016-11-15] MEDS: LEVOTHYROXINE 25 MCG TAB PO SCH (07:05)
[2016-11-15] MEDS: INSULIN LISPRO (humaLOG) 300 UNIT/3 ML VIAL SQ SCH ×6 (07:07→18:11)
[2016-11-15] MEDS: IPRATROPIUM-ALBUTEROL 3 ML NEB INHALATION SCH ×3 (08:36→15:37)
[2016-11-15] MEDS: SYMBICORT 160-4.5 MCG INHALER INHALATION SCH (08:36)
[2016-11-15] MEDS: AMIODARONE 200 MG TAB PO SCH (08:51)
[2016-11-15] MEDS: NYSTATIN 100,000UNIT/GM CREAM 30 GM TUBE TOPICAL SCH (08:51)
[2016-11-15] MEDS: LORATADINE 10 MG TAB PO SCH (08:52)
[2016-11-15] MEDS: METOPROLOL TARTRATE 50 MG TAB PO SCH (08:52)
[2016-11-15] MEDS: FUROSEMIDE 10 MG/ML 4 ML VIAL IV SCH (08:52)
[2016-11-15] MEDS: ATORVASTATIN 40 MG TAB PO SCH (08:52)
[2016-11-15 08:58] VITALS: TEMP 97.6
[2016-11-15] MEDS ORDERED: FAMOTIDINE 20 MG TAB PO SCH (09:00)
[2016-11-15] MEDS: metFORMIN 500 MG TAB PO SCH ×2 (10:34→18:09)
[2016-11-15 11:37] LABS: Glucose,Whole Blood 156 mg/dL (75-99)
[2016-11-15 12:59] VITALS: BP 120/66
--- NOTE | 2016-11-15 13:22 | P.PN ---
Subjective Date of service 11/14/16 Progress note being dictated for Dr. Blankenship Interval history:Patient is 65-year-old female with moderate pulmonary hypertension morbid obesity sleep apnea and doesn't use CPAP machine at home and the congestive heart failure diastolic dysfunction probable right-sided heart failure from cor pulmonale given encumbrance of shortness of breath last night and unable to sleep because of that and patient was complaining of orthopnea and possible proximal nocturnal dyspnea. Patient has worsening pedal edema for about a week patient denied any cough denied any fever or chills patient denied any nausea or vomiting. Patient has mildly elevated BNP along with pulmonary edema on the chest x-ray although clinically unable to stay is is JVD patient does have 2+ pitting pedal edema extending up to the knee. He was also complained of pressure-like chest pain for which cariology evaluated patient. Please refer to their documentation for EKG changes and troponin. He was started on IV Lasix and patient is urinating well since then. We will wait for tomorrow renal function before I start her on RODNEY inhibitor as patient has normal systolic function as per the previous echocardiogram. Uses 3 L at nighttime oxygen for sleep apnea as she didn't doesn't like CPAP machine 11/14/2016 Diuresing well on Lasix IV push with 24-hour I&O reflecting a negative fluid balance. Edema slowly improving. Renal function improving. Maintaining O2 sats of 90-91% on room air. States wears 3 L as needed at night at home. Telemetry sinus rhythm with bundle branch block. History of atrial fibrillation, anticoagulated on Coumadin with INR 1.1. Objective - Vital Signs Vital signs: Vital Signs Temp 97.9 F 11/14/16 15:47 Pulse 63 11/14/16 15:47 Resp 16 11/14/16 15:47 BP 122/69 11/14/16 15:47 Pulse Ox 96 11/14/16 15:47 Intake & Output 11/13/16 11/14/16 11/14/16 18:59 06:59 18:59 Intake Total 0 237 Output Total 1200 800 700 Balance -1200 -800 -463 Weight 113.398 kg 123.3 kg Intake: Oral 0 237 Output: Urine 1200 800 700 Other: Voiding Method Toilet Toilet # Voids 1 2 - Exam GENERAL: Sitting up at side of bed, alert and oriented x3, no acute distress. Well developed, well nourished. HEENT: Pupils are round and equally reacting to light. EOMI. No scleral icterus. No conjunctival pallor. Normocephalic, atraumatic. No pharyngeal erythema. No thyromegaly. CARDIOVASCULAR: S1 and S2 present. Systolic murmur,no rubs, or gallops. Unable to assess JVD because of her neck contour PULMONARY: Chest is clear to auscultation, coarse with no wheezing or crackles. ABDOMEN: Soft, nontender, nondistended, normoactive bowel sounds. No palpable organomegaly. MUSCULOSKELETAL: No joint swelling or deformity. EXTREMITIES: No cyanosis, clubbing, does have 2+ pitting pedal edema NEUROLOGICAL: Gross neurological examination did not reveal any focal deficits. SKIN: No rashes. - Labs CBC & Chem 7: 11/13/16 09:15 11/15/16 03:53 Labs: Abnormal Lab Results - Last 24 Hours (Table) 11/13/16 11/13/16 11/13/16 Range/Units 09:15 17:51 20:31 Carbon Dioxide (22-30) mmol/L BUN (7-17) mg/dL Creatinine (0.52-1.04) mg/dL Glucose (74-99) mg/dL POC Glucose (mg/dL) 170 H (75-99) mg/dL Hemoglobin A1c 6.2 H (4.2-6.1) % CK-MB (CK-2) 4.4 H* (0.0-2.4) ng/mL 11/13/16 11/14/16 11/14/16 Range/Units 21:31 05:49 06:23 Carbon Dioxide 33 H (22-30) mmol/L BUN 31 H (7-17) mg/dL Creatinine 1.08 H (0.52-1.04) mg/dL Glucose 171 H (74-99) mg/dL POC Glucose (mg/dL) 191 H (75-99) mg/dL Hemoglobin A1c (4.2-6.1) % CK-MB (CK-2) 3.7 H* (0.0-2.4) ng/mL 11/14/16 11/14/16 Range/Units 11:35 16:40 Carbon Dioxide (22-30) mmol/L BUN (7-17) mg/dL Creatinine (0.52-1.04) mg/dL Glucose (74-99) mg/dL POC Glucose (mg/dL) 254 H 205 H (75-99) mg/dL Hemoglobin A1c (4.2-6.1) % CK-MB (CK-2) (0.0-2.4) ng/mL Assessment and Plan Plan: 1 acute hypoxic respiratory failure: Secondary to acute diastolic CHF exacerbation, EF 55-60%. 2. moderate to severe pulmonary hypertension with possible cor pulmonary 3obstructive sleep apnea patient doesn't CPAP at home 4 morbid obesity, BMI 50.8 #5 type 2 diabetes mellitus controlled #6 bronchial asthma without any acute exacerbation #7 proximal atrial fibrillation, status post cardioversion, currently sinus rhythm #8 hyperlipidemia #9 hypertension Plan: Continue on current medication regime ,monitoring and symptomatic treatment. Continue diuresing with Lasix IVP. Coumadin dosing as per cardiology. Discharge planning in progress for tomorrow. Further recommendations to follow. The impression and plan of care has been dictated as directed. : I performed a H&P examination of this patient and discussed the same with the dictator. I agree with the dictator's note. Any additional findings/opinions/ etc. will be noted.
--- NOTE | 2016-11-15 13:39 | P.DS ---
Providers Date of admission: 11/13/16 11:27 Expected date of discharge: 11/15/16 Attending physician: Nayla Blankenship Consults: 11/13/16 11:27 Consult Physician Routine Consulting Provider: Jc Griffiths Consult Reason/Comments: chf Do you want consulting provider notified?: Yes Primary care physician: Dontae Quan [facility] Course: Final Diagnoses: 1 acute hypoxic respiratory failure: Secondary to acute diastolic CHF exacerbation, EF 55-60%, improving 2. moderate to severe pulmonary hypertension with possible cor pulmonary 3obstructive sleep apnea patient doesn't CPAP at home 4 morbid obesity, BMI 50.8 #5 type 2 diabetes mellitus controlled #6 bronchial asthma without any acute exacerbation #7 proximal chronic atrial fibrillation, hx of cardioversion, currently sinus rhythm #8 hyperlipidemia #9 hypertension #10 Coumadin monitoring Hospital course:Patient is 65-year-old female with moderate pulmonary hypertension morbid obesity sleep apnea. Doesn't use CPAP machine at home. Congestive heart failure diastolic dysfunction suspected right-sided heart failure from cor pulmonale given encumbrance of shortness of breath last night and unable to sleep. Complaining of pressure-like chest pain ,orthopnea, possible proximal nocturnal dyspnea,worsening pedal edema.Mildly elevated BNP with pulmonary edema on the chest x-ray. Evaluated by cardiology. Please refer to their documentation for EKG changes and troponin. Diuresed well on Lasix IVP. Significant clinical improvement. Patient cleared for discharge by cardiology. Patient is being discharged home in a stable condition with guarded prognosis. The impression and plan of care has been dictated as directed as a scribe. : I performed a H&P examination of this patient and discussed the same with the dictator. I agree with the dictator's note. Any additional findings/opinions/ etc. will be noted. Patient Condition at Discharge: Stable Plan - Discharge Summary New Discharge Prescriptions: Continue Ranitidine HCl 150 mg PO BID Ferrous Sulfate [Feosol] 325 mg PO BID metFORMIN HCL 1,000 mg PO BID Atorvastatin [Lipitor] 40 mg PO HS Metoprolol Tartrate [Lopressor] 50 mg PO BID #60 tab Amiodarone [Cordarone] 200 mg PO DAILY Nystatin 100,000Unit/gm Cream [Mycostatin Cream] 1 applic TOPICAL BID Loratadine [Claritin] 10 mg PO DAILY Budesonide/Formoterol Fumarate [Symbicort 160-4.5 Mcg Inhaler] 1 puff INHALATION RT-BID PRN PRN Reason: Shortness Of Breath Insulin Glulisine [Apidra Solostar] 8 unit SQ TID-W/MEALS Insulin Glargine [Lantus] 40 unit SQ HS Levothyroxine Sodium [Synthroid] 25 mcg PO DAILY Ipratropium-Albuterol Nebulize [Duoneb 0.5 mg-3 mg/3 ml Soln] 3 ml INHALATION RT-QID #120 ampul.neb Albuterol Inhaler [Ventolin Hfa Inhaler] 2 puff INHALATION RT-Q6H PRN PRN Reason: Shortness Of Breath Magnesium Oxide 400 mg PO DAILY Lisinopril [Zestril] 10 mg PO DAILY Diazepam [Valium] 5 mg PO BID PRN PRN Reason: Anxiety Discontinued Warfarin Sodium [Coumadin] 2 mg PO DAILY Discharge Medication List Ferrous Sulfate [Feosol] 325 mg PO BID 07/14/14 [History] Ranitidine HCl 150 mg PO BID 07/14/14 [History] metFORMIN HCL 1,000 mg PO BID 07/14/14 [History] Atorvastatin [Lipitor] 40 mg PO HS 09/28/15 [History] Metoprolol Tartrate [Lopressor] 50 mg PO BID #60 tab 10/08/15 [Rx] Amiodarone [Cordarone] 200 mg PO DAILY 10/28/15 [History] Nystatin 100,000Unit/gm Cream [Mycostatin Cream] 1 applic TOPICAL BID 02/10/16 [ History] Budesonide/Formoterol Fumarate [Symbicort 160-4.5 Mcg Inhaler] 1 puff INHALATION RT-BID PRN 04/02/16 [History] Insulin Glargine [Lantus] 40 unit SQ HS 04/02/16 [History] Insulin Glulisine [Apidra Solostar] 8 unit SQ TID-W/MEALS 04/02/16 [History] Loratadine [Claritin] 10 mg PO DAILY 04/02/16 [History] Levothyroxine Sodium [Synthroid] 25 mcg PO DAILY 07/16/16 [History] Ipratropium-Albuterol Nebulize [Duoneb 0.5 mg-3 mg/3 ml Soln] 3 ml INHALATION RT -QID #120 ampul.neb 07/19/16 [Rx] Albuterol Inhaler [Ventolin Hfa Inhaler] 2 puff INHALATION RT-Q6H PRN 11/13/16 [ History] Diazepam [Valium] 5 mg PO BID PRN 11/13/16 [History] Lisinopril [Zestril] 10 mg PO DAILY 11/13/16 [History] Magnesium Oxide 400 mg PO DAILY 11/13/16 [History] Follow up Appointment(s)/Referral(s): [facility], [NON-STAFF] - Abimael Camarena MD [STAFF PHYSICIAN] - 11/20/16 Dontae Quan DO [Primary Care Provider] - 3 Days Ambulatory/Diagnostic Orders: Prothrombin Time INR [LAB.AMB] Time Frame: 3 Days, Location: Determined By Patient Activity/Diet/Wound Care/Special Instructions: Lasix and Coumadin as per cardiology Diet: Consistent carb,CHF DIET,STEPHAN Accu-Cheks before meals and at bedtime Activity: Limited until follow up.
--- NOTE | 2016-11-15 15:10 | P.PN ---
Subjective This is a pleasant 65-year-old female patient who follows with Dr. Mccormick in the office. She has a past medical history significant for hyperlipidemia, paroxysmal atrial fibrillation, hypothyroidism, asthma, obstructive sleep apnea with a CPAP, type 2 diabetes, and previous coronary angiography that revealed no obstructive CAD. She presented to the emergency room with increasing shortness of breath and weight gain that it been going on for the last 3 or 4 days. Laboratory values showed BNP of 1700, INR 1.1 in a patient who is supposedly on Coumadin, and a chest x-ray showed findings compatible with congestive failure. She has been on Lasix 40 mg IV push every 12 hours and has been diuresing well. Patient is feeling quite a bit better, breathing significantly easier. Edema has improved. 2-D echo with Doppler performed yesterday showed an ejection fraction of 55-60% with moderate to severe pulmonary hypertension. INR remains 1.1 after 5 mg of Coumadin last night. Objective - Vital Signs Vital signs: Vital Signs Temp 97.6 F 11/15/16 08:00 Pulse 80 11/15/16 12:15 Resp 14 11/15/16 03:52 BP 120/66 11/15/16 12:00 Pulse Ox 96 11/15/16 12:00 Intake & Output 11/14/16 11/15/16 11/15/16 18:59 06:59 18:59 Intake Total 237 50 Output Total 700 900 Balance -463 -900 50 Weight 121.9 kg Intake: Oral 237 50 Output: Urine 700 900 Other: Voiding Method Toilet # Voids 2 - Exam PHYSICAL EXAMINATION: HEENT: Head is atraumatic, normocephalic. Pupils equal, round. Neck is supple. There is no elevated jugular venous pressure. HEART EXAMINATION: Heart sounds regular, S1 and S2 normal with a systolic murmur. CHEST EXAMINATION: Lungs reveal diminished air entry bilateral bases. No chest wall tenderness is noted on palpation or with deep breathing. ABDOMEN: Soft, nontender. Bowel sounds are heard. No organomegaly noted. EXTREMITIES: Diminished peripheral pulses with evidence of improving peripheral edema and no calf tenderness noted. NEUROLOGIC patient is awake, alert and oriented x3. . - Labs CBC & Chem 7: 11/13/16 09:15 11/15/16 03:53 Labs: Abnormal Lab Results - Last 24 Hours (Table) 11/14/16 11/14/1611/15/17 Range/Units 16:40 20:44 03:53 Carbon Dioxide 31 H (22-30) mmol/L BUN 32 H (7-17) mg/dL Creatinine 1.10 H (0.52-1.04) mg/dL Glucose 182 H (74-99) mg/dL POC Glucose (mg/dL) 205 H 229 H (75-99) mg/dL 11/15/16 11/15/16 Range/Units 05:53 11:35 Carbon Dioxide (22-30) mmol/L BUN (7-17) mg/dL Creatinine (0.52-1.04) mg/dL Glucose (74-99) mg/dL POC Glucose (mg/dL) 197 H 156 H (75-99) mg/dL Assessment and Plan Plan: Assessment and plan #1 acute on chronic diastolic congestive heart failure with an ejection fraction of 55-60% #2 paroxysmal atrial fibrillation, currently in sinus rhythm, status post cardioversion #3 type 2 diabetes mellitus #4 hypertension #5 hyperlipidemia #6 pulmonary hypertension From cardiology's perspective Ms. Nichols is cleared for discharge. We will discharge the patient home on Lasix 40 mg every a.m. and 20 mg at 2 PM daily. We will send her home on Coumadin 5 mg daily. She will follow-up in the office with Dr. Mccormick for PT INR on Sunday. PRISON GUARD note has been reviewed, I agree with a documented findings and plan of care. Patient was seen and examined.
--- NOTE | 2016-11-15 15:12 | XR ---
EXAMINATION TYPE: XR chest 1V portable DATE OF EXAM: 11/15/2016 CLINICAL HISTORY: Difficulty breathing progress study. TECHNIQUE: Single AP portable upright view of the chest is obtained. COMPARISON: Chest x-ray from 2 days earlier FINDINGS: Exam is slightly suboptimal secondary to patient's large body habitus and portable techniqu e. Cardiomegaly is redemonstrated. There is interval improvement in central vascular congestion and i nterstitial edema. No new focal airspace opacity or pneumothorax is seen bilaterally. Suspect small l eft pleural effusion. Multilevel spurring in the spine is present. IMPRESSION: Suspect resolving CHF exacerbation as there is cardiomegaly with improving central vascul ar congestion and interstitial edema noted.
[2016-11-15 17:05] LABS: Glucose,Whole Blood 166 mg/dL (75-99)
[2016-11-15 18:07] VITALS: PULSE 70
[2016-11-15] MEDS: WARFARIN 5 MG TAB PO SCH (18:11)
[2016-11-16] MEDS ORDERED: FUROSEMIDE 40 MG TAB PO SCH (09:00)
[2016-11-16] MEDS ORDERED: FUROSEMIDE 20 MG TAB PO SCH (18:00)
== END 2016-11-15 19:06 | disposition hospice, home (50) | DRG 291 ==
LOC: EC 08:50 → 6SEL 11:27
PROVIDERS: ADMIT Hospitalist; ATTEND Hospitalist
DX: I11.0 Hypertensive heart disease with heart failure (principal); J96.01 Acute respiratory failure with hypoxia; I50.33 Acute on chronic diastolic (congestive) heart failure; I27.2 Other secondary pulmonary hypertension; Z68.43 Body mass index [BMI] 50.0-59.9, adult; E66.01 Morbid (severe) obesity due to excess calories; I27.81 Cor pulmonale (chronic); Z99.81 Dependence on supplemental oxygen; I48.0 Paroxysmal atrial fibrillation; I45.4 Nonspecific intraventricular block; E78.5 Hyperlipidemia, unspecified; E78.00 Pure hypercholesterolemia, unspecified; J44.9 Chronic obstructive pulmonary disease, unspecified; E03.9 Hypothyroidism, unspecified; E11.9 Type 2 diabetes mellitus without complications; G47.33 Obstructive sleep apnea (adult) (pediatric); K21.9 Gastro-esophageal reflux disease without esophagitis; Z79.01 Long term (current) use of anticoagulants; Z79.4 Long term (current) use of insulin; Z79.84 Long term (current) use of oral hypoglycemic drugs; Z79.51 Long term (current) use of inhaled steroids; Z79.899 Other long term (current) drug therapy; Z71.3 Dietary counseling and surveillance; Z90.49 Acquired absence of other specified parts of digestive tract; Z98.42 Cataract extraction status, left eye; Z98.41 Cataract extraction status, right eye
CPT/HCPCS: 36415; 71010; 71020; 80048; 80053; 82550; 82553; 83036; 83735; 83880; 84484; 85025; 85610; 85730; 93005; 93306; 94640; 94760; 96374; 99291

== ENCOUNTER 2017-01-13 18:08 | Emergency (ER) | payer OTHER ==
--- NOTE | 2017-01-13 18:12 | ED ---
General Adult HPI - General Stated complaint: LOW BLOOD SUGAR Time Seen by Provider: 01/13/17 18:10 Source: patient, EMS, RN notes reviewed - History of Present Illness Initial comments: 66-year-old female with history diabetes presents with episode of hypoglycemia. Patient was brought in by EMS. She initially called for generalized weakness. Is found to have a blood sugar in the 50s. EMS tried on scene for about 30 minutes to improve her blood sugar. They gave her Zeynep, milk, juice, and 4 glucose tablets. Blood sugar continued to drop into the 40s. IV was established and she was given 1 amp of D50. Blood sugar improved to 100. Patient takes Lantus in the evening. She took 6 units of NovoLog at approximately 2:30 p.m. - Related Data Home Medications Medication Instructions Recorded Confirmed Ferrous Sulfate [Feosol] 325 mg PO BID 07/14/14 01/13/17 Ranitidine HCl 150 mg PO BID 07/14/14 01/13/17 metFORMIN HCL 1,000 mg PO BID 07/14/14 01/13/17 Atorvastatin [Lipitor] 40 mg PO HS 09/28/15 01/13/17 Amiodarone [Cordarone] 200 mg PO DAILY 10/28/15 01/13/17 Nystatin 100,000Unit/gm Cream 1 applic TOPICAL BID 02/10/16 01/13/17 [Mycostatin Cream] Budesonide/Formoterol Fumarate 1 puff INHALATION RT-BID PRN 04/02/16 01/13/17 [Symbicort 160-4.5 Mcg Inhaler] Insulin Glargine [Lantus] 40 unit SQ HS 04/02/16 01/13/17 Insulin Glulisine [Apidra Solostar] 8 unit SQ TID-W/MEALS 04/02/16 01/13/17 Loratadine [Claritin] 10 mg PO DAILY 04/02/16 01/13/17 Albuterol Inhaler [Ventolin Hfa 2 puff INHALATION RT-Q6H PRN 11/13/16 01/13/17 Inhaler] Ipratropium-Albuterol Nebulize 3 ml INHALATION RT-QID PRN 01/13/17 01/13/17 [Duoneb 0.5 mg-3 mg/3 ml Soln] Levothyroxine Sodium [Synthroid] 50 mcg PO DAILY 01/13/17 01/13/17 Warfarin [Coumadin] 3.75 mg PO DAILY 01/13/17 01/13/17 Previous Rx's Medication Instructions Recorded Metoprolol Tartrate [Lopressor] 50 mg PO BID #60 tab 10/08/15 Furosemide [Lasix] 40 mg PO DAILY #30 tab 11/15/16 Lisinopril [Zestril] 5 mg PO DAILY #30 tablet 11/15/16 Allergies Allergy/AdvReac Type Severity Reaction Status Date / Time No Known Allergies Allergy Verified 11/13/16 10:01 Review of Systems ROS Statement: Those systems with pertinent positive or pertinent negative responses have been documented in the HPI. ROS Other: All systems not noted in ROS Statement are negative. Past Medical History Past Medical History: Atrial Fibrillation, Asthma, Heart Failure, COPD, Diabetes Mellitus, GERD/Reflux, Hyperlipidemia, Hypertension, Pneumonia, Sleep Apnea/CPAP/BIPAP Additional Past Medical History / Comment(s): Severe obstructive sleep apnea, with an apnea popping index of 92-wears O2 at 3L./NC at hs, morbid obesity, bronchial asthma, paroxysmal atrial fibrillation, CHF with an ejection fraction of 45% based on a previous echocardiogram, IDDM type II, history of cellulitis right lower extremitie- recovered, History of Any Multi-Drug Resistant Organisms: None Reported Past Surgical History: Appendectomy, Cholecystectomy, Heart Catheterization Additional Past Surgical History / Comment(s): 11/03/15 TIMOTHY with cardioversion, cardiac cath, ROSANGELA CATARACTS Past Anesthesia/Blood Transfusion Reactions: No Reported Reaction Smoking Status: Never smoker - Past Family History Mother Family Medical History: Cancer Additional Family Medical History / Comment(s): SKIN AND LUNG CANCER "MESOTHELIOMA" Father Family Medical History: CVA/TIA General Exam General appearance: alert, in no apparent distress Head exam: Present: atraumatic, normocephalic Eye exam: Present: normal appearance, PERRL ENT exam: Present: normal exam, normal oropharynx Neck exam: Present: normal inspection. Absent: tenderness, meningismus Respiratory exam: Present: normal lung sounds bilaterally. Absent: respiratory distress, wheezes Cardiovascular Exam: Present: regular rate, normal rhythm GI/Abdominal exam: Present: soft. Absent: distended, tenderness Extremities exam: Present: normal inspection, normal capillary refill. Absent: pedal edema Neurological exam: Present: alert, oriented X3, CN II-XII intact. Absent: motor sensory deficit Psychiatric exam: Present: normal affect, normal mood Skin exam: Present: warm, dry, intact. Absent: cyanosis, diaphoretic Course Vital Signs 01/13/17 01/13/17 18:24 19:30 Temperature 96.8 F L Pulse Rate 59 L 85 Respiratory 18 18 Rate Blood Pressure 155/85 104/57 O2 Sat by Pulse 98 94 L Oximetry EKG Findings - EKG Comments: EKG Findings:: EKG shows sinus bradycardia ventricular rate of 55, there is left ventricular hypertrophy and QRS widening, MT interval 186, QRS duration 140 , QTC 507. This is unchanged compared to previous EKG Medical Decision Making - Medical Decision Making 66-year-old female presenting with episode of hypoglycemia. Patient was given oral glucose as well as an amp of D50 by EMS prior to arrival. Blood pressures been stable in the emergency department. She is not on any oral hypoglycemics. She has eaten a sandwich and aicha crackers. Laboratory studies reviewed and are significant for mild chronic kidney disease. Patient is currently taking 60 units of insulin with meals. She will reduce this to 4-5 as well as reduce her nighttime Lantus from 40-35. She will check her blood sugar at least 3 times a day and follow-up with her primary care physician. Patient is agreeable with this plan. - Lab Data Result diagrams: 01/13/17 18:34 01/13/17 18:34 Lab Results 01/13/17 01/13/17 01/13/17 Range/Units 18:26 18:34 18:34 WBC 11.0 H (3.8-10.6) k/uL RBC 4.58 (3.80-5.40) m/uL Hgb 12.7 (11.4-16.0) gm/dL Hct 40.3 (34.0-46.0) % MCV 88.0 (80.0-100.0) fL MCH 27.7 (25.0-35.0) pg MCHC 31.4 (31.0-37.0) g/dL RDW 15.6 H (11.5-15.5) % Plt Count 191 (150-450) k/uL Neutrophils % 85 % Lymphocytes % 8 % Monocytes % 5 % Eosinophils % 1 % Basophils % 0 % Neutrophils # 9.3 H (1.3-7.7) k/uL Lymphocytes # 0.9 L (1.0-4.8) k/uL Monocytes # 0.5 (0-1.0) k/uL Eosinophils # 0.1 (0-0.7) k/uL Basophils # 0.0 (0-0.2) k/uL VBG pH (7.31-7.41) VBG pCO2 (37-51) mmHg VBG HCO3 (24-28) mmol/L Sodium 142 (137-145) mmol/L Potassium 3.8 (3.5-5.1) mmol/L Chloride 103 (98-107) mmol/L Carbon Dioxide 27 (22-30) mmol/L Anion Gap 12 mmol/L BUN 39 H (7-17) mg/dL Creatinine 1.28 H (0.52-1.04) mg/dL Est GFR (MDRD) Af Amer 51 (>60 ml/min/1.73 sqM) Est GFR (MDRD) Non-Af 42 (>60 ml/min/1.73 sqM) Glucose 137 H (74-99) mg/dL POC Glucose (mg/dL) 188 H (75-99) mg/dL POC Glu Package Line Relief Operator Gayla Torres Calcium 8.6 (8.4-10.2) mg/dL Total Bilirubin 0.4 (0.2-1.3) mg/dL AST 49 H (14-36) U/L ALT 48 (9-52) U/L Alkaline Phosphatase 125 (38-126) U/L Total Protein 6.3 (6.3-8.2) g/dL Albumin 3.7 (3.5-5.0) g/dL TSH 6.990 H (0.465-4.680) mIU/L Urine Color Urine Appearance (Clear) Urine pH (5.0-8.0) Ur Specific [place] (1.001-1.035) Urine Protein (Negative) Urine Glucose (UA) (Negative) Urine Ketones (Negative) Urine Blood (Negative) Urine Nitrite (Negative) Urine Bilirubin (Negative) Urine Urobilinogen (<2.0) mg/dL Ur Leukocyte Esterase (Negative) 01/13/17 01/13/1717 Range/Units 18:34 19:25 20:10 WBC (3.8-10.6) k/uL RBC (3.80-5.40) m/uL Hgb (11.4-16.0) gm/dL Hct (34.0-46.0) % MCV (80.0-100.0) fL MCH (25.0-35.0) pg MCHC (31.0-37.0) g/dL RDW (11.5-15.5) % Plt Count (150-450) k/uL Neutrophils % % Lymphocytes % % Monocytes % % Eosinophils % % Basophils % % Neutrophils # (1.3-7.7) k/uL Lymphocytes # (1.0-4.8) k/uL Monocytes # (0-1.0) k/uL Eosinophils # (0-0.7) k/uL Basophils # (0-0.2) k/uL VBG pH 7.27 L (7.31-7.41) VBG pCO2 61 H (37-51) mmHg VBG HCO3 27 (24-28) mmol/L Sodium (137-145) mmol/L Potassium (3.5-5.1) mmol/L Chloride (98-107) mmol/L Carbon Dioxide (22-30) mmol/L Anion Gap mmol/L BUN (7-17) mg/dL Creatinine (0.52-1.04) mg/dL Est GFR (MDRD) Af Amer (>60 ml/min/1.73 sqM) Est GFR (MDRD) Non-Af (>60 ml/min/1.73 sqM) Glucose (74-99) mg/dL POC Glucose (mg/dL) 151 H (75-99) mg/dL POC Glu Package Line Relief Operator ID Eleonora Bullock Calcium (8.4-10.2) mg/dL Total Bilirubin (0.2-1.3) mg/dL AST (14-36) U/L ALT (9-52) U/L Alkaline Phosphatase (38-126) U/L Total Protein (6.3-8.2) g/dL Albumin (3.5-5.0) g/dL TSH (0.465-4.680) mIU/L Urine Color Light Yellow Urine Appearance Clear (Clear) Urine pH 5.0 (5.0-8.0) Ur Specific [place] 1.007 (1.001-1.035) Urine Protein Negative (Negative) Urine Glucose (UA) Negative (Negative) Urine Ketones Negative (Negative) Urine Blood Negative (Negative) Urine Nitrite Negative (Negative) Urine Bilirubin Negative (Negative) Urine Urobilinogen <2.0 (<2.0) mg/dL Ur Leukocyte Esterase Negative (Negative) Disposition Clinical Impression: Hypoglycemia Disposition: HOME SELF-CARE Condition: Good Instructions: Hypoglycemia in a Person with Diabetes (ED) Referrals: Dontae Quan DO [Primary Care Provider] - 1-2 days Time of Disposition: 20:45
[2017-01-13 18:29] LABS: Glucose,Whole Blood 188 mg/dL (75-99)
[2017-01-13 18:45] LABS: Basophils % (A) 0 %; CH 28.6; CHCM 32.6; Eosinophils # (A) 0.1 k/uL (0-0.7); Eosinophils % (A) 1 %; HCT 40.3 % (34.0-46.0); HDW 2.75; HGB 12.7 gm/dL (11.4-16.0); Luc # (Auto) 0.09; Luc % (Auto) 1; Lymphocytes # (A) 0.9 k/uL (1.0-4.8); Lymphocytes % (A) 8 %; MCH 27.7 pg (25.0-35.0); MCHC 31.4 g/dL (31.0-37.0); Mean Platelet Volume 8.4; Monocytes # (A) 0.5 k/uL (0-1.0); Monocytes % (A) 5 %; Neutrophils # (A) 9.3 k/uL (1.3-7.7); Neutrophils % (A) 85 %; RBC 4.58 m/uL (3.80-5.40); RDW 15.6 % (11.5-15.5); VBG PH 7.27 (7.31-7.41); WBC (Perox) 11.61
[2017-01-13 18:55] LABS: Calcium 8.6 mg/dL (8.4-10.2); Potassium 3.8 mmol/L (3.5-5.1); Total Bilirubin 0.4 mg/dL (0.2-1.3); Total Protein 6.3 g/dL (6.3-8.2)
[2017-01-13 19:41] LABS: Glucose,Whole Blood 151 mg/dL (75-99)
[2017-01-13 20:29] LABS: Appearance,Urine Clear (Clear); Bilirubin,Urine Negative (Negative); Glucose,Urine (UA) Negative (Negative); Ketones,Urine Negative (Negative); Leukocyte Esterase,Urine Negative (Negative); Nitrite,Urine Negative (Negative); Protein,Urine Negative (Negative); Specific Gravity,Urine 1.007 (1.001-1.035); UA Billing (MACRO vs. MICRO) CHEM; Urobilinogen,Urine <2.0 mg/dL (<2.0)
[2017-01-13 21:03] VITALS: BP 135/78; PULSE 70; RESP 16; TEMP 97.3
== END 2017-01-13 20:59 | disposition home or self-care (01) ==
LOC: EC 18:08
DX: E11.649 Type 2 diabetes mellitus with hypoglycemia without coma (principal); E11.22 Type 2 diabetes mellitus with diabetic chronic kidney disease; E78.5 Hyperlipidemia, unspecified; I12.9 Hypertensive chronic kidney disease with stage 1 through stage 4 chronic kidney disease, or unspecified chronic kidney disease; N18.9 Chronic kidney disease, unspecified; I48.91 Unspecified atrial fibrillation; K21.9 Gastro-esophageal reflux disease without esophagitis; E66.01 Morbid (severe) obesity due to excess calories; Z79.01 Long term (current) use of anticoagulants; Z79.4 Long term (current) use of insulin; Z79.84 Long term (current) use of oral hypoglycemic drugs; Z79.899 Other long term (current) drug therapy; Z68.42 Body mass index [BMI] 45.0-49.9, adult
CPT/HCPCS: 36415; 80053; 81003; 82803; 84443; 85025; 93005; 99285

== ENCOUNTER 2017-01-15 09:24 | Inpatient (IN) | payer OTHER ==
[2017-01-15] MEDS ORDERED: NITROGLYCERIN SL TABS 0.4 MG TAB SUBLINGUAL STA ×3 (09:40)
[2017-01-15] MEDS ORDERED: ASPIRIN 81 MG PO STA (09:40)
--- NOTE | 2017-01-15 09:42 | ED ---
General Adult HPI - General Chief complaint: Chest Pain Stated complaint: Chest pain/ANNE MARIE Time Seen by Provider: 01/15/17 09:37 Source: patient, RN notes reviewed Mode of arrival: wheelchair Limitations: no limitations - History of Present Illness Initial comments: Patient is a pleasant 66-year-old female presenting to the emergency department complaining of chest discomfort. Onset of symptoms was last night before going to bed. Discomfort is stated as mild however when provider number she states it is 9/10. Discomfort feels like tightness. No radiation. Patient does have some mild associated dyspnea. No nausea. No diaphoresis. - Related Data Home Medications Medication Instructions Recorded Confirmed Ferrous Sulfate [Feosol] 325 mg PO BID 07/14/14 01/15/17 Ranitidine HCl 150 mg PO BID 07/14/14 01/15/17 metFORMIN HCL 1,000 mg PO BID 07/14/14 01/15/17 Atorvastatin [Lipitor] 40 mg PO HS 09/28/15 01/15/17 Budesonide/Formoterol Fumarate 1 puff INHALATION RT-BID 04/02/16 01/15/17 [Symbicort 160-4.5 Mcg Inhaler] Insulin Glargine [Lantus] 40 unit SQ HS 04/02/16 01/15/17 Insulin Glulisine [Apidra Solostar] 8 unit SQ TID-W/MEALS 04/02/16 01/15/17 Loratadine [Claritin] 10 mg PO DAILY 04/02/16 01/15/17 Albuterol Inhaler [Ventolin Hfa 2 puff INHALATION RT-Q6H PRN 11/13/16 01/15/17 Inhaler] Ipratropium-Albuterol Nebulize 3 ml INHALATION RT-QID PRN 01/13/17 01/15/17 [Duoneb 0.5 mg-3 mg/3 ml Soln] Levothyroxine Sodium [Synthroid] 50 mcg PO DAILY 01/13/17 01/15/17 Furosemide [Lasix] 40 mg PO BID 01/15/17 01/15/17 Warfarin [Coumadin] 5 mg PO SUTUWETHFRSA 01/15/17 01/15/17 Warfarin [Coumadin] 7.5 mg PO MO 01/15/17 01/15/17 Previous Rx's Medication Instructions Recorded Metoprolol Tartrate [Lopressor] 50 mg PO BID #60 tab 10/08/15 Lisinopril [Zestril] 5 mg PO DAILY #30 tablet 11/15/16 Allergies Allergy/AdvReac Type Severity Reaction Status Date / Time No Known Allergies Allergy Verified 01/15/17 09:50 Review of Systems ROS Statement: Those systems with pertinent positive or pertinent negative responses have been documented in the HPI. ROS Other: All systems not noted in ROS Statement are negative. Constitutional: Denies: fever Eyes: Denies: eye pain ENT: Denies: ear pain Respiratory: Reports: dyspnea. Denies: cough Cardiovascular: Reports: chest pain. Denies: palpitations Endocrine: Denies: fatigue Gastrointestinal: Denies: abdominal pain Genitourinary: Denies: dysuria Musculoskeletal: Denies: back pain Skin: Denies: rash Neurological: Denies: weakness Past Medical History Past Medical History: Atrial Fibrillation, Asthma, Heart Failure, COPD, Diabetes Mellitus, GERD/Reflux, Hyperlipidemia, Hypertension, Pneumonia, Sleep Apnea/CPAP/BIPAP Additional Past Medical History / Comment(s): Severe obstructive sleep apnea, with an apnea popping index of 92-wears O2 at 3L./NC at hs, morbid obesity, bronchial asthma, paroxysmal atrial fibrillation, CHF with an ejection fraction of 45% based on a previous echocardiogram, IDDM type II, history of cellulitis right lower extremitie- recovered, History of Any Multi-Drug Resistant Organisms: None Reported Past Surgical History: Appendectomy, Cholecystectomy, Heart Catheterization Additional Past Surgical History / Comment(s): 11/03/15 TIMOTHY with cardioversion, cardiac cath, ROSANGELA CATARACTS Past Anesthesia/Blood Transfusion Reactions: No Reported Reaction Past Psychological History: No Psychological Hx Reported Smoking Status: Never smoker Past Alcohol Use History: None Reported Past Drug Use History: None Reported - Past Family History Mother Family Medical History: Cancer Additional Family Medical History / Comment(s): SKIN AND LUNG CANCER "MESOTHELIOMA" Father Family Medical History: CVA/TIA General Exam Limitations: no limitations General appearance: alert, in no apparent distress Head exam: Present: atraumatic Eye exam: Present: normal appearance, PERRL ENT exam: Present: normal oropharynx Neck exam: Present: normal inspection Respiratory exam: Present: normal lung sounds bilaterally. Absent: chest wall tenderness Cardiovascular Exam: Present: regular rate, normal rhythm Expanded Peripheral pulses: 2+: Radial (R), Radial (L), Dorsalis Pedis (R), Dorsalis Pedis (L) GI/Abdominal exam: Present: soft. Absent: tenderness Extremities exam: Present: normal inspection. Absent: pedal edema, calf tenderness Neurological exam: Present: alert Psychiatric exam: Present: normal affect, normal mood Skin exam: Present: normal color Course Vital Signs 01/15/17 01/15/17 01/15/17 09:28 10:59 11:00 Temperature 98.1 F Pulse Rate 64 62 61 Respiratory 20 Rate Blood Pressure 141/67 128/64 114/58 O2 Sat by Pulse 95 Oximetry EKG Findings - EKG Comments: EKG Findings:: Normal sinus rhythm 65. LA 168. QRS 1:30. QT 454. QTC 472. Normal axis. Nonspecific intraventricular block. No acute ST change. Medical Decision Making - Medical Decision Making Patient reexamined and resting comfortably in bed. Patient is updated on results and plan. Case was discussed with practitioner Janiya, who will admit for Dr. barry, covering for Dr. Quan. - Lab Data Result diagrams: 01/15/17 10:36 01/15/17 10:36 Lab Results 01/15/17 01/15/17 01/15/17 Range/Units 10:36 10:36 10:36 WBC 11.2 H (3.8-10.6) k/uL RBC 4.61 (3.80-5.40) m/uL Hgb 13.1 (11.4-16.0) gm/dL Hct 40.6 (34.0-46.0) % MCV 87.9 (80.0-100.0) fL MCH 28.5 (25.0-35.0) pg MCHC 32.4 (31.0-37.0) g/dL RDW 14.6 (11.5-15.5) % Plt Count 216 (150-450) k/uL Neutrophils % 76 % Lymphocytes % 13 % Monocytes % 7 % Eosinophils % 2 % Basophils % 0 % Neutrophils # 8.6 H (1.3-7.7) k/uL Lymphocytes # 1.5 (1.0-4.8) k/uL Monocytes # 0.8 (0-1.0) k/uL Eosinophils # 0.2 (0-0.7) k/uL Basophils # 0.1 (0-0.2) k/uL Hypochromasia Slight PT (9.0-12.0) sec INR (<1.2) APTT (22.0-30.0) sec Sodium 142 (137-145) mmol/L Potassium 4.5 (3.5-5.1) mmol/L Chloride 105 (98-107) mmol/L Carbon Dioxide 28 (22-30) mmol/L Anion Gap 9 mmol/L BUN 36 H (7-17) mg/dL Creatinine 1.10 H (0.52-1.04) mg/dL Est GFR (MDRD) Af Amer >60 (>60 ml/min/1.73 sqM) Est GFR (MDRD) Non-Af 50 (>60 ml/min/1.73 sqM) Glucose 157 H (74-99) mg/dL Calcium 8.8 (8.4-10.2) mg/dL Magnesium 1.7 (1.6-2.3) mg/dL Total Bilirubin 0.5 (0.2-1.3) mg/dL AST 38 H (14-36) U/L ALT 42 (9-52) U/L Alkaline Phosphatase 127 H (38-126) U/L Total Creatine Kinase 293 H (30-135) U/L CK-MB (CK-2) 3.7 H* (0.0-2.4) ng/mL CK-MB (CK-2) Rel Index 1.3 Troponin I <0.012 (0.000-0.034) ng/mL NT-Pro-B Natriuret Pep pg/mL Total Protein 6.4 (6.3-8.2) g/dL Albumin 3.7 (3.5-5.0) g/dL 01/15/17 01/15/17 Range/Units 10:36 10:36 WBC (3.8-10.6) k/uL RBC (3.80-5.40) m/uL Hgb (11.4-16.0) gm/dL Hct (34.0-46.0) % MCV (80.0-100.0) fL MCH (25.0-35.0) pg MCHC (31.0-37.0) g/dL RDW (11.5-15.5) % Plt Count (150-450) k/uL Neutrophils % % Lymphocytes % % Monocytes % % Eosinophils % % Basophils % % Neutrophils # (1.3-7.7) k/uL Lymphocytes # (1.0-4.8) k/uL Monocytes # (0-1.0) k/uL Eosinophils # (0-0.7) k/uL Basophils # (0-0.2) k/uL Hypochromasia PT 24.9 H (9.0-12.0) sec INR 2.6 H (<1.2) APTT 32.5 H (22.0-30.0) sec Sodium (137-145) mmol/L Potassium (3.5-5.1) mmol/L Chloride (98-107) mmol/L Carbon Dioxide (22-30) mmol/L Anion Gap mmol/L BUN (7-17) mg/dL Creatinine (0.52-1.04) mg/dL Est GFR (MDRD) Af Amer (>60 ml/min/1.73 sqM) Est GFR (MDRD) Non-Af (>60 ml/min/1.73 sqM) Glucose (74-99) mg/dL Calcium (8.4-10.2) mg/dL Magnesium (1.6-2.3) mg/dL Total Bilirubin (0.2-1.3) mg/dL AST (14-36) U/L ALT (9-52) U/L Alkaline Phosphatase (38-126) U/L Total Creatine Kinase (30-135) U/L CK-MB (CK-2) (0.0-2.4) ng/mL CK-MB (CK-2) Rel Index Troponin I (0.000-0.034) ng/mL NT-Pro-B Natriuret Pep 2460 pg/mL Total Protein (6.3-8.2) g/dL Albumin (3.5-5.0) g/dL - Radiology Data Radiology results: image reviewed (Chest x-ray shows cardiomegaly and interstitial prominence. Correlate for CHF.) Disposition Clinical Impression: Congestive heart failure, Chest pain Disposition: ADMITTED IP TO THIS [facility] Referrals: Dontae Quan DO [Primary Care Provider] - 1-2 days Decision Time: 11:41
[2017-01-15 10:58] LABS: Basophils # (A) 0.1 k/uL (0-0.2); Basophils % (A) 0 %; CH 27.7; CHCM 31.7; Eosinophils # (A) 0.2 k/uL (0-0.7); Eosinophils % (A) 2 %; HCT 40.6 % (34.0-46.0); HDW 2.78; HGB 13.1 gm/dL (11.4-16.0); Hypochromasia Slight; Luc # (Auto) 0.16; Luc % (Auto) 2; Lymphocytes # (A) 1.5 k/uL (1.0-4.8); Lymphocytes % (A) 13 %; MCH 28.5 pg (25.0-35.0); MCHC 32.4 g/dL (31.0-37.0); MCV 87.9 fL (80.0-100.0); Mean Platelet Volume 7.9; Monocytes # (A) 0.8 k/uL (0-1.0); Monocytes % (A) 7 %; Neutrophils # (A) 8.6 k/uL (1.3-7.7); Neutrophils % (A) 76 %; RBC 4.61 m/uL (3.80-5.40); RDW 14.6 % (11.5-15.5); WBC 11.2 k/uL (3.8-10.6); WBC (Perox) 11.26
--- NOTE | 2017-01-15 10:59 | XR ---
EXAMINATION TYPE: XR chest 2V DATE OF EXAM: 01/15/2017 COMPARISON: 11/15/2016 HISTORY: 66-year-old female with chest pain TECHNIQUE: AP and lateral views FINDINGS: The heart remains mildly enlarged. Diffuse interstitial prominence. There may be trace effusion on th e lateral view. No theodore consolidation seen. Hazy lower lung densities related to overlying soft tiss ue. IMPRESSION: Correlate for mild CHF.
[2017-01-15 11:00] LABS: INR 2.6 (<1.2); Partial Thromboplastin Time 32.5 sec (22.0-30.0); Prothrombin Time 24.9 sec (9.0-12.0)
[2017-01-15 11:02] LABS: ALT 42 U/L (9-52); AST 38 U/L (14-36); Alkaline Phosphatase 127 U/L (38-126); Anion Gap 9 mmol/L; Blood Urea Nitrogen 36 mg/dL (7-17); Calcium 8.8 mg/dL (8.4-10.2); Carbon Dioxide 28 mmol/L (22-30); Chloride 105 mmol/L (98-107); Glucose 157 mg/dL (74-99); Magnesium 1.7 mg/dL (1.6-2.3); Non-African American GFR(MDRD) 50 (>60 ml/min/1.73 sqM); Potassium 4.5 mmol/L (3.5-5.1); Sodium 142 mmol/L (137-145); Total Bilirubin 0.5 mg/dL (0.2-1.3); Total Protein 6.4 g/dL (6.3-8.2)
[2017-01-15 11:11] LABS: Creatine Kinase 293 U/L (30-135)
[2017-01-15 11:23] LABS: Troponin I <0.012 ng/mL (0.000-0.034)
[2017-01-15 11:31] LABS: Creatine Kinase MB 3.7 ng/mL (0.0-2.4)
[2017-01-15] MEDS ORDERED: ASPIRIN 325 MG TAB PO STA (11:41)
[2017-01-15] MEDS: FUROSEMIDE 10 MG/ML 4 ML VIAL IV SCH ×2 (12:22→20:40)
[2017-01-15] MEDS: SODIUM CHLORIDE 0.9% 1,000 ML IV SCH (13:20)
[2017-01-15] MEDS: NITROGLYCERIN OINT 1 INCH/GM PACKET TOPICAL SCH ×3 (13:21→20:42)
--- NOTE | 2017-01-15 13:39 | P.CRDCN ---
History of Present Illness Consult date: 01/15/17 Requesting physician: Jason Mancuso Consult reason: shortness of breath Chief complaint: Shortness of breath History of present illness: This is a 66-year-old female with history of hypertension, hyperlipidemia, diabetes, paroxysmal atrial fibrillation, on Coumadin for anticoagulation, asthma, sleep apnea, who follows with Dr. Mccormick in the office. She has had a heart catheterization performed in 2014 which revealed normal coronary arteries. She's presents to the hospital with fairly sudden onset of shortness of breath with an associated "squeezing sensation in her chest." S2 x-ray on admission revealed congestive heart failure. EKG on admission revealed a normal sinus rhythm with nonspecific ST-T wave changes. White blood cell count 11.2, hemoglobin 13.1, platelet count 216. INR 2.6. Sodium 142, potassium 4.5, BUN 36, creatinine 1.1. Magnesium 1.7, AST 38, ALT 42, alk phos 127. Troponin 0.012. BNP level 2460. Blood pressure 126/60 with a heart rate in the 60s, afebrile, 97% on room air. Patient was initiated on IV Lasix 40 mg every 8 hourly in the emergency room. Past Medical History Past Medical History: Atrial Fibrillation, Asthma, Heart Failure, COPD, Diabetes Mellitus, GERD/Reflux, Hyperlipidemia, Hypertension, Pneumonia, Sleep Apnea/CPAP/BIPAP, Thyroid Disorder Additional Past Medical History / Comment(s): Severe obstructive sleep apnea- does not tolerate CPAP-wears O2 at 3L/NC at hs, pulmonary htn, morbid obesity, bronchial asthma, paroxysmal atrial fibrillation, IDDM type II, history of cellulitis right lower extremity-healed, hypothyroidism. History of Any Multi-Drug Resistant Organisms: None Reported Past Surgical History: Appendectomy, Cholecystectomy, Heart Catheterization Additional Past Surgical History / Comment(s): 11/03/15 TIMOTHY with cardioversion, cardiac cath, ROSANGELA CATARACTS Past Anesthesia/Blood Transfusion Reactions: No Reported Reaction Smoking Status: Never smoker - Past Family History Mother Family Medical History: Cancer Additional Family Medical History / Comment(s): SKIN AND LUNG CANCER "MESOTHELIOMA" Father Family Medical History: CVA/TIA Medications and Allergies Home Medications Medication Instructions Recorded Confirmed Type Ferrous Sulfate [Feosol] 325 mg PO BID 07/14/14 01/15/17 History Ranitidine HCl 150 mg PO BID 07/14/14 01/15/17 History metFORMIN HCL 1,000 mg PO BID 07/14/14 01/15/17 History Atorvastatin [Lipitor] 40 mg PO HS 09/28/15 01/15/17 History Metoprolol Tartrate [Lopressor] 50 mg PO BID #60 tab 10/08/15 01/15/17 Rx Budesonide/Formoterol Fumarate 1 puff INHALATION RT-BID 04/02/16 01/15/17 History [Symbicort 160-4.5 Mcg Inhaler] Insulin Glargine [Lantus] 40 unit SQ HS 04/02/16 01/15/17 History Insulin Glulisine [Apidra Solostar] 8 unit SQ TID-W/MEALS 04/02/16 01/15/17 History Loratadine [Claritin] 10 mg PO DAILY 04/02/16 01/15/17 History Albuterol Inhaler [Ventolin Hfa 2 puff INHALATION RT-Q6H PRN 11/13/16 01/15/17 History Inhaler] Lisinopril [Zestril] 5 mg PO DAILY #30 tablet 11/15/16 01/15/17 Rx Ipratropium-Albuterol Nebulize 3 ml INHALATION RT-QID PRN 01/13/17 01/15/17 History [Duoneb 0.5 mg-3 mg/3 ml Soln] Levothyroxine Sodium [Synthroid] 50 mcg PO DAILY 01/13/17 01/15/17 History Furosemide [Lasix] 40 mg PO BID 01/15/17 01/15/17 History Warfarin [Coumadin] 5 mg PO SUTUWETHFRSA 01/15/17 01/15/17 History Warfarin [Coumadin] 7.5 mg PO MO 01/15/17 01/15/17 History Allergies Allergy/AdvReac Type Severity Reaction Status Date / Time No Known Allergies Allergy Verified 01/15/17 09:50 Physical Exam Vitals: Vital Signs Temp Pulse Resp BP Pulse Ox 01/15/17 12:19 98.1 F 60 18 127/66 97 01/15/17 11:00 61 114/58 01/15/17 10:59 62 128/64 01/15/17 09:28 98.1 F 64 20 141/67 95 Intake and Output 01/14/17 01/15/17 01/15/17 22:59 06:59 14:59 Other: Weight 122.47 kg Patient Weight 01/16/17 06:59 Weight 122.47 kg PHYSICAL EXAMINATION: HEENT: Head is atraumatic, normocephalic. Pupils equal, round. Neck is supple. There is no elevated jugular venous pressure. HEART EXAMINATION: Heart S1 and S2 systolic ejection murmur is heard. CHEST EXAMINATION: Lungs are clear with diminished air entry to the bases. ABDOMEN: Soft, nontender. Bowel sounds are heard. No organomegaly noted. EXTREMITIES: 2+ peripheral pulses with trace evidence of peripheral edema and no calf tenderness noted. NEUROLOGIC patient is awake, alert and oriented -3. . Results 01/15/17 10:36 01/15/17 10:36 Cardiac Enzymes 01/15/17 01/15/17 Range/Units 10:36 10:36 AST 38 H (14-36) U/L CK-MB (CK-2) 3.7 H* (0.0-2.4) ng/mL Troponin I <0.012 (0.000-0.034) ng/mL Coagulation 01/15/17 Range/Units 10:36 PT 24.9 H (9.0-12.0) sec APTT 32.5 H (22.0-30.0) sec CBC 01/15/17 Range/Units 10:36 WBC 11.2 H (3.8-10.6) k/uL RBC 4.61 (3.80-5.40) m/uL Hgb 13.1 (11.4-16.0) gm/dL Hct 40.6 (34.0-46.0) % Plt Count 216 (150-450) k/uL Comprehensive Metabolic Panel 01/15/17 Range/Units 10:36 Sodium 142 (137-145) mmol/L Potassium 4.5 (3.5-5.1) mmol/L Chloride 105 (98-107) mmol/L Carbon Dioxide 28 (22-30) mmol/L BUN 36 H (7-17) mg/dL Creatinine 1.10 H (0.52-1.04) mg/dL Glucose 157 H (74-99) mg/dL Calcium 8.8 (8.4-10.2) mg/dL AST 38 H (14-36) U/L ALT 42 (9-52) U/L Alkaline Phosphatase 127 H (38-126) U/L Total Protein 6.4 (6.3-8.2) g/dL Albumin 3.7 (3.5-5.0) g/dL Current Medications Generic Name Dose Route Start Last Admin Trade Name Corwin PRN Reason Stop Dose Admin Aspirin 325 mg 01/16/17 09:00 Aspirin PO DAILY AIDA Furosemide 40 mg 01/15/17 12:00 01/15/17 12:22 Lasix IV 40 mg Q8H AIDA Administration Sodium Chloride 1,000 mls @ 20 mls/hr 01/15/17 11:45 Saline 0.9% IV .Q24H AIDA Nitroglycerin 1 inch 01/15/17 13:00 Nitro-Bid Oint TOPICAL QID AIDA Intake and Output 01/14/17 01/15/17 01/15/17 22:59 06:59 14:59 Other: Weight 122.47 kg Patient Weight 01/16/17 06:59 Weight 122.47 kg 01/15/17 10:36 01/15/17 10:36 EKG Interpretations (text) EKG shows normal sinus rhythm with no acute changes. Assessment and Plan Plan: Assessment and plan #1 diastolic congestive heart failure acute on chronic #2 paroxysmal atrial fibrillation on Coumadin #3 hypertension #4 hyperlipidemia #5 diabetes #6 sleep apnea Plan We will continue current dose of IV Lasix. We will also decrease the aspirin to 81 mg daily. Resume patient's home medications. Check lytes BUN and creatinine in the morning. Continue to monitor daily weight and accurate intake and output. Further recommendations. DNP note has been reviewed, I agree with a documented findings and plan of care. Patient was seen and examined.
[2017-01-15 13:49] VITALS: BMI 51.0
[2017-01-15] MEDS ORDERED: IPRATROPIUM-ALBUTEROL 3 ML NEB INHALATION PRN (15:12)
[2017-01-15] MEDS ORDERED: ALBUTEROL INHALER 60 PUFF/8 GM INHALER INHALATION PRN (15:12)
[2017-01-15 16:34] LABS: Glucose,Whole Blood 84 mg/dL (75-99)
[2017-01-15] MEDS: INSULIN LISPRO (humaLOG) 300 UNIT/3 ML VIAL SQ SCH ×2 (16:35→20:51)
[2017-01-15 16:49] LABS: Troponin I 0.013 ng/mL (0.000-0.034)
[2017-01-15 16:54] LABS: Creatine Kinase MB 3.3 ng/mL (0.0-2.4)
[2017-01-15] MEDS ORDERED: WARFARIN 2.5 MG TAB PO ONE (18:00)
[2017-01-15] MEDS: ACETAMINOPHEN TAB 500 MG TAB PO PRN (18:56)
[2017-01-15] MEDS: SYMBICORT 160-4.5 MCG INHALER INHALATION SCH (20:15)
[2017-01-15] MEDS: FERROUS SULFATE 325 MG TAB PO SCH (20:41)
[2017-01-15] MEDS: ATORVASTATIN 40 MG TAB PO SCH (20:41)
[2017-01-15] MEDS: METOPROLOL TARTRATE 50 MG TAB PO SCH (20:41)
[2017-01-15] MEDS: metFORMIN 500 MG TAB PO SCH (20:42)
[2017-01-15] MEDS: FAMOTIDINE 20 MG TAB PO SCH (20:42)
[2017-01-15 20:49] LABS: Glucose,Whole Blood 152 mg/dL (75-99)
[2017-01-15] MEDS: INSULIN GLARGINE 100 UNIT/ML 10 ML VIAL SQ SCH (20:51)
--- NOTE | 2017-01-15 22:49 | HP ---
HISTORY AND PHYSICAL DATE OF ADMISSION: January 15, 2017. PRESENTING COMPLAINT: Short of breath. HISTORY OF PRESENTING COMPLAINT: This is a 66 -year-old patient of Dr. Quan. The patient has rather extensive medical history. Chronic stable medical conditions include paroxysmal atrial fibrillation, hypothyroid, obstructive sleep apnea, obesity, hypertension, diabetes, on home oxygen 3 L and secondary pulmonary hypertension. The patient presents with increasing short of breath and squeezing sensation in the anterior chest lasting for few hours this morning. There was no perspiration, no dizziness, no new tiredness. Symptoms had gotten better on its own. The patient is already on Coumadin and INR was therapeutic and patient presented to the ER with the above symptoms. REVIEW OF SYSTEMS: Constitutional: Tired. HEENT: None. RESPIRATORY: As above. Cardiovascular as above. Gastrointestinal: Occasional intermittent diarrhea. Genitourinary: None. Musculoskeletal: Some aches and pains in the joints. Dermatological, hematologic, lymphatics: None. Psychiatry: None. Neurological: None. PAST MEDICAL HISTORY: Paroxysmal atrial fibrillation. Hypothyroid. Obstructive sleep apnea. Morbid obesity. Hyperlipidemia, diabetes type 2. Hypoxic respiratory failure on 3 L oxygen at home. Pulmonary hypertension. PAST SURGICAL HISTORY: Appendectomy, cholecystectomy, cardiac catheterization, TIMOTHY with cardioversion. Had a cardiac cath in September of 2014. SOCIAL HISTORY: Patient lives , uses a walker also at the apartment. She does cook and manages her own medications. No smoking. FAMILY HISTORY: Lung cancer and mesothelioma. HOME MEDICATIONS: 1. Metformin 1000 mg p.o. b.i.d. 2. Coumadin 7.5 mg on Sunday, 5 mg on Sunday, Sunday, , Sunday. 3. Ranitidine 150 mg p.o. b.i.d. 4. Lopressor 50 mg p.o. b.i.d. 5. Claritin 10 mg p.o. daily. 6. Zestril 5 mg p.o. daily. 7. Synthroid 50 mcg p.o. daily. 8. DuoNeb q.i.d. 9. Apidra 8 units subcu t.i.d. 10.Lantus 40 units subcu q.h.s. 11.Lasix 40 mg p.o. b.i.d. 12.Iron 325 mg b.i.d. 13.Symbicort 1 puff b.i.d. 14.Lipitor 40 mg q.h.s. 15.Ventolin 2 puffs q.6h p.r.n. ALLERGIES: None. EXAMINATION: Vital signs on presentation temperature 98.1, pulse 64, respiratory rate 20, blood pressure 140/67, pulse ox 95% on room air. GENERAL APPEARANCE: Well built, BMI 51.0, lying flat in bed. Very slightly short of breath. EYES. Pupils equal, conjunctivae normal. HEENT: Oral cavity normal. Neck short neck, thick JVD unable to assess. Mass not palpable. RESPIRATORY: Effort increased, lungs distant breath sounds. Cardiovascular: Heart sounds muffled. Mild edema which is chronic. Abdomen large distended soft, liver and spleen not palpable. Lymphatics: No lymph nodes palpable in the neck, axilla or groin. Psychiatry: Alert and oriented times three. Mood and affect slightly anxious- appearing. Neurological: Pupils equal, cranial grossly intact. Power and sensation grossly intact. INVESTIGATIONS: White count 11.2, hemoglobin 13.1, INR 2.6, potassium 4.5, BUN 36, creatinine 1.1. Troponin less than 0.012 and 0.013, proBNP 16937. EKG nonspecific changes. Chest x-ray a bit under penetrated. ASSESSMENT: 1. This is a patient who presents for shortness of breath and squeezing sensation in the chest. The this could be from pulmonary hypertension. The patient's edema in the lower extremities no different than baseline. Pulmonary embolism entirely cannot be ruled out. It appears to be less likely. The patient's troponins are negative until now. 2. Paroxysmal atrial fibrillation chronically on Coumadin. 3. Hypothyroidism. 4. Obstructive sleep apnea does not use CPAP. 5. Morbid obesity. BMI 51. 6. Hyperlipidemia. 7. Diabetes mellitus type 2, chronically on oral hypoglycemic. 8. Type 2 respiratory failure. On 3 L oxygen at home with hypoxia. 9. Secondary pulmonary hypertension. PLAN: Cardiology was consulted. Serial cardiac enzymes in place. Also get a pulmonary opinion. Will do Doppler ultrasound lower extremity to rule out DVT. Seems to be less likely. The patient manifestations could be that of secondary pulmonary hypertension. Care was discussed with the patient. Questions were answered. MMODL / IJN: [id number] /
[2017-01-15 22:59] LABS: Troponin I <0.012 ng/mL (0.000-0.034)
[2017-01-15 23:02] LABS: Creatine Kinase MB 3.2 ng/mL (0.0-2.4)
[2017-01-16] MEDS: FUROSEMIDE 10 MG/ML 4 ML VIAL IV SCH ×3 (04:41→22:05)
[2017-01-16 05:39] LABS: Glucose,Whole Blood 143 mg/dL (75-99)
[2017-01-16] MEDS: INSULIN LISPRO (humaLOG) 300 UNIT/3 ML VIAL SQ SCH ×4 (05:56→22:08)
[2017-01-16] MEDS: LEVOTHYROXINE 50 MCG TAB PO SCH (05:57)
[2017-01-16 06:35] LABS: CH 28.5; CHCM 32.1; HCT 38.6 % (34.0-46.0); MCH 27.6 pg (25.0-35.0); Mean Platelet Volume 8.4; RBC 4.34 m/uL (3.80-5.40); RDW 15.6 % (11.5-15.5); WBC 9.1 k/uL (3.8-10.6)
[2017-01-16 06:43] LABS: INR 2.4 (<1.2); Prothrombin Time 23.3 sec (9.0-12.0)
[2017-01-16 06:57] LABS: Calcium 8.7 mg/dL (8.4-10.2); Potassium 4.2 mmol/L (3.5-5.1)
[2017-01-16] MEDS: FERROUS SULFATE 325 MG TAB PO SCH ×2 (08:37→22:05)
[2017-01-16] MEDS: METOPROLOL TARTRATE 50 MG TAB PO SCH ×2 (08:37→22:06)
[2017-01-16] MEDS: FAMOTIDINE 20 MG TAB PO SCH (08:37)
[2017-01-16] MEDS: metFORMIN 500 MG TAB PO SCH ×2 (08:37→17:32)
[2017-01-16] MEDS: LORATADINE 10 MG TAB PO SCH (08:38)
[2017-01-16] MEDS: NITROGLYCERIN OINT 1 INCH/GM PACKET TOPICAL SCH ×4 (08:38→22:06)
[2017-01-16] MEDS: LISINOPRIL 5 MG TAB PO SCH (08:38)
[2017-01-16] MEDS: ASPIRIN 325 MG TAB PO SCH (08:49)
[2017-01-16] MEDS ORDERED: ASPIRIN 325 MG TAB PO SCH (09:00)
[2017-01-16] MEDS: SYMBICORT 160-4.5 MCG INHALER INHALATION SCH ×2 (09:13→21:02)
--- NOTE | 2017-01-16 11:20 | P.PN ---
Subjective Principal diagnosis: Shortness of breath This is a 66-year-old female with history of diabetes, hypertension, paroxysmal atrial fibrillation, on Coumadin for anticoagulation, hypertension, sleep apnea, follows regularly with Dr. Mccormick in the office. She presented to the hospital with symptoms of shortness of breath. X-ray on admission did reveal congestive cardiac failure. BNP level on admission was 2460. Patient was initiated on IV Lasix, her weight is down 1 kg today. Creatinine is 1.2 today. BUN 31, potassium 4.2, INR 2.4. Patient was seen and examined this morning, feeling much better overall. Ambulating in the room to the bathroom without any difficulty. Blood pressure 120/60 with a heart rate in the 50s to 60s. Objective - Vital Signs Vital signs: Vital Signs Temp 97.9 F 01/16/17 08:35 Pulse 60 01/16/17 08:35 Resp 16 01/16/17 08:35 BP 137/72 01/16/17 08:35 Pulse Ox 94 L 01/16/17 08:35 Intake & Output 01/15/17 01/16/17 01/16/17 18:59 06:59 18:59 Intake Total 200 360 180 Output Total 400 1800 Balance -200 -1440 180 Weight 122.47 kg 121.7 kg Intake: IV 20 360 Sodium Chloride 0.9% 1, 20 360 000 ml @ 20 mls/hr IV . Q24H [facility] Rx#:[id number] Oral 180 180 Output: Urine 400 1800 Other: Voiding Method Toilet # Voids 2 1 - Exam PHYSICAL EXAMINATION: HEENT: Head is atraumatic, normocephalic. Pupils equal, round. Neck is supple. There is no elevated jugular venous pressure. HEART EXAMINATION: Heart S1 and S2 systolic ejection murmur is heard. CHEST EXAMINATION: Lungs are clear with mild improvement in air entry to the bases. ABDOMEN: Soft, nontender. Bowel sounds are heard. No organomegaly noted. EXTREMITIES: 2+ peripheral pulses with trace evidence of peripheral edema and no calf tenderness noted. NEUROLOGIC patient is awake, alert and oriented -3. . - Labs CBC & Chem 7: 01/16/17 06:16 01/16/17 06:16 Labs: Abnormal Lab Results - Last 24 Hours (Table) 01/15/17 01/15/17 01/15/17 Range/Units 10:36 15:56 15:56 RDW (11.5-15.5) % PT (9.0-12.0) sec INR (<1.2) Carbon Dioxide (22-30) mmol/L BUN (7-17) mg/dL Creatinine (0.52-1.04) mg/dL Glucose (74-99) mg/dL POC Glucose (mg/dL) (75-99) mg/dL Hemoglobin A1c 7.0 H (4.2-6.1) % CK-MB (CK-2) 3.7 H* 3.3 H* (0.0-2.4) ng/mL 01/15/17 01/15/17 01/16/17 Range/Units 20:46 22:09 05:38 RDW (11.5-15.5) % PT (9.0-12.0) sec INR (<1.2) Carbon Dioxide (22-30) mmol/L BUN (7-17) mg/dL Creatinine (0.52-1.04) mg/dL Glucose (74-99) mg/dL POC Glucose (mg/dL) 152 H 143 H (75-99) mg/dL Hemoglobin A1c (4.2-6.1) % CK-MB (CK-2) 3.2 H* (0.0-2.4) ng/mL 01/16/17 01/16/17 01/16/17 Range/Units 06:16 06:16 06:16 RDW 15.6 H (11.5-15.5) % PT 23.3 H (9.0-12.0) sec INR 2.4 H (<1.2) Carbon Dioxide 32 H (22-30) mmol/L BUN 31 H (7-17) mg/dL Creatinine 1.24 H (0.52-1.04) mg/dL Glucose 135 H (74-99) mg/dL POC Glucose (mg/dL) (75-99) mg/dL Hemoglobin A1c (4.2-6.1) % CK-MB (CK-2) (0.0-2.4) ng/mL Assessment and Plan Plan: Assessment and plan #1 diastolic congestive heart failure acute on chronic #2 paroxysmal atrial fibrillation on Coumadin #3 hypertension #4 hyperlipidemia #5 diabetes #6 sleep apnea Plan We will continue current dose of IV Lasix for 24 hours. Check lytes BUN and creatinine in the morning. DNP note has been reviewed, I agree with a documented findings and plan of care. Patient was seen and examined.
--- NOTE | 2017-01-16 11:33 | CDI ---
In responding to this query, please exercise your independent professional judgment. The [facility] Coding Staff and Clinical Documentation Specialists appreciate your assistance in clarifying documentation, maintaining compliance with coding guidelines, accurately documenting patients condition and capturing severity of illness. The fact that a question is asked does not imply that any particular answer is desired or expected. Communication forms are a method of clarifying documentation and are not made part of the Legal Health Record. Thank you in advance for your clarification. Last Revision, June 2015 Kayley Zavaleta [address] [place] [place] [address] Documentation Clarification Form Date: 01/16/2017 11:22:00 AM From: Tena Dougherty RN, CCDS Admit Date: 01/15/2017 11:41:00 AM Patient Name: Bindu Nichols Visit Number: [id number] Dr. Jason Mancuso The patient presented with the following respiratory symptoms: Chest Pain and ANNE MARIE. History/Risk Factors: Paroxysmal atrial fib, pulmonary HTN, A/C Diastolic CHF Home oxygen: 3L Home O2 Clinical Indicators: 01/16 H&P: "Type 2 respiratory failure. On 3 L oxygen at home with hypoxia." Vital signs/Pulse oximetry: Temp 98.1, HR 64, RR 20, B/P 141/67, Spo2 95% RA Lung/Breathing assessment: "Effort increased lungs distant breath sounds. Effort increased lungs distant breath sounds." Treatment: Breathing TX: Duoneb QID and PRN, Symbicort INH BID Pulse ox: Per ICU Protocol O2: 2L NC In your professional opinion, can you please clarify if these findings signify one of the following conditions? Acuity: o Acute o Chronic o Acute on Chronic Respiratory Status: o Respiratory failure o Respiratory failure with hypercapnia o Respiratory failure with hypoxia o Acute Respiratory Distress o Other Diagnosis, please specify o Unable to determine Please document in your progress notes and discharge summary in order to capture severity of illness and risk of mortality. Include clinical findings that support your diagnosis. FYI: Press F11 to launch patient chart. Place X here if this finding has no clinical significance, is not applicable or if you are not able to provide any additional documentation. MTDD
[2017-01-16 11:44] LABS: Glucose,Whole Blood 146 mg/dL (75-99)
--- NOTE | 2017-01-16 13:00 | P.CNPUL ---
History of Present Illness Consult date: 01/16/17 Reason for consult: dyspnea History of present illness: This 66-year-old female patient, is morbidly obese and she was Hospital as for increased shortness of breath and some chest discomfort. She describes some squeezing sensation over her chest. This was not related to activity or exertion. No radiation. No angina. No back pain. Her chest x-ray on admission showed some increased pulmonary vascular marking and congestion. She has chronic lower extremity edema. She was thought to be in heart failure. Troponins were negative. BNP level is 2460. The patient is being on IV Lasix right now and she is receiving 40 mg every 8 hours with excellent clinical response. She is feeling much better today. No cough or congestion. No significant sputum production or hemoptysis. No other complaints otherwise for now This patient is known to me. Of taking care of her during an earlier hospitalization back in June 2016. Back then the patient came in to the ICU lethargic and she was and CO2 narcosis. She apparently took some painkillers/ opiates and she went into hypercapnic respiratory failure. the patient has severe obstructive sleep apnea with an AHI of 92 and she has been maintained on a BiPAP at a pressure of 22/18 cm of water on outpatient basis. She is also known to have bronchial asthma, valvular heart disease with a bicuspid versus a tricuspid aortic valve and CHF with an ejection fraction of 45%. Previous cardiac catheterization has shown normal coronaries. The patient is morbidly obese. She has approximately 2 fibrillation and she has been maintained on long -term articulation with warfarin. Review of Systems Constitutional: Reports daytime sleepiness, Reports fatigue, Reports lethargy, Reports weakness, Reports weight gain Eyes: denies blurred vision, denies bulging eye, denies decreased vision Ears: deny: decreased hearing, ear discharge, earache Ears, nose, mouth and throat: Denies headache, Denies sore throat Cardiovascular: Reports decreased exercise tolerance, Reports dyspnea on exertion, Reports leg edema, Reports shortness of breath Respiratory: Reports dyspnea, Reports sleep apnea Gastrointestinal: Denies abdominal pain, Denies diarrhea, Denies nausea, Denies vomiting Genitourinary: Denies dysuria, Denies hematuria Musculoskeletal: Denies myalgias Musculoskeletal: bilateral: ankle swelling, absent: ankle pain, ankle stiffness Integumentary: Denies pruritus, Denies rash Neurological: Denies numbness, Denies weakness Psychiatric: Denies anxiety, Denies depression Endocrine: Denies fatigue, Denies weight change Past Medical History Past Medical History: Atrial Fibrillation, Asthma, Heart Failure, COPD, Diabetes Mellitus, GERD/Reflux, Hyperlipidemia, Hypertension, Pneumonia, Sleep Apnea/CPAP/BIPAP, Thyroid Disorder Additional Past Medical History / Comment(s): Severe obstructive sleep apnea- does not tolerate CPAP-wears O2 at 3L/NC at hs, pulmonary htn, morbid obesity, bronchial asthma, paroxysmal atrial fibrillation, IDDM type II, history of cellulitis right lower extremity-healed, hypothyroidism. The patient also has severe CHATO with a previous BiPAP therapy of 22/80 cm of water however she has not been using her BiPAP on a regular basis. She also has aortic valve stenosis with a potential of bicuspid versus tricuspid aortic valve and a previous ejection fraction of 45%, lower extremity edema History of Any Multi-Drug Resistant Organisms: None Reported Past Surgical History: Appendectomy, Cholecystectomy, Heart Catheterization Additional Past Surgical History / Comment(s): 11/03/15 TIMOTHY with cardioversion, cardiac cath, ROSANGELA CATARACTS Past Anesthesia/Blood Transfusion Reactions: No Reported Reaction Smoking Status: Never smoker - Past Family History Mother Family Medical History: Cancer Additional Family Medical History / Comment(s): SKIN AND LUNG CANCER "MESOTHELIOMA" Father Family Medical History: CVA/TIA Medications and Allergies Home Medications Medication Instructions Recorded Confirmed Type Ferrous Sulfate [Feosol] 325 mg PO BID 07/14/14 01/15/17 History Ranitidine HCl 150 mg PO BID 07/14/14 01/15/17 History metFORMIN HCL 1,000 mg PO BID 07/14/14 01/15/17 History Atorvastatin [Lipitor] 40 mg PO HS 09/28/15 01/15/17 History Metoprolol Tartrate [Lopressor] 50 mg PO BID #60 tab 10/08/15 01/15/17 Rx Budesonide/Formoterol Fumarate 1 puff INHALATION RT-BID 04/02/16 01/15/17 History [Symbicort 160-4.5 Mcg Inhaler] Insulin Glargine [Lantus] 40 unit SQ HS 04/02/16 01/15/17 History Insulin Glulisine [Apidra Solostar] 8 unit SQ TID-W/MEALS 04/02/16 01/15/17 History Loratadine [Claritin] 10 mg PO DAILY 04/02/16 01/15/17 History Albuterol Inhaler [Ventolin Hfa 2 puff INHALATION RT-Q6H PRN 11/13/16 01/15/17 History Inhaler] Lisinopril [Zestril] 5 mg PO DAILY #30 tablet 11/15/16 01/15/17 Rx Ipratropium-Albuterol Nebulize 3 ml INHALATION RT-QID PRN 01/13/17 01/15/17 History [Duoneb 0.5 mg-3 mg/3 ml Soln] Levothyroxine Sodium [Synthroid] 50 mcg PO DAILY 01/13/17 01/15/17 History Furosemide [Lasix] 40 mg PO BID 01/15/17 01/15/17 History Warfarin [Coumadin] 5 mg PO SUTUWETHFRSA 01/15/17 01/15/17 History Warfarin [Coumadin] 7.5 mg PO MO 01/15/17 01/15/17 History Allergies Allergy/AdvReac Type Severity Reaction Status Date / Time No Known Allergies Allergy Verified 01/15/17 09:50 Physical Exam Vitals: Vital Signs Temp Pulse Pulse Resp BP BP Pulse Ox 01/16/17 11:16 97.1 F L 59 L 20 121/79 94 L 01/16/17 08:35 97.9 F 60 16 137/72 94 L 01/16/17 04:00 97 F L 64 18 134/71 95 01/16/17 00:00 97.2 F L 65 18 108/67 96 01/15/17 20:30 68 01/15/17 20:16 64 01/15/17 20:00 97 F L 65 18 130/96 95 01/15/17 16:00 61 18 01/15/17 15:45 97.5 F L 61 18 123/62 98 01/15/17 15:44 98 Intake and Output 01/15/17 01/16/17 01/16/17 22:59 06:59 14:59 Intake Total 320 220 380 Output Total 1000 1200 Balance -680 -980 380 Intake: IV 140 220 Sodium Chloride 0.9% 1, 140 220 000 ml @ 20 mls/hr IV . Q24H [facility] Rx#:[id number] Oral 180 380 Output: Urine 1000 1200 Other: Voiding Method Toilet # Voids 1 1 Weight 121.7 kg Gen. appearance the patient is calm and comfortable. She is morbidly obese pH is not in acute respiratory distress. Not using his muscles of breathing. Head exam was generally normal. There was no scleral icterus or corneal arcus. Mucous membranes were moist.Neck was supple and without jugular venous distension, thyromegaly, or carotid bruits. Carotids were easily palpable bilaterally. There was no adenopathy. Lung sounds are diminished in lung bases bilaterally along with some few bibasilar crackles and no wheezes or rhonchi. Heart sounds show accentuation of the second heart sound. Overall the heart sounds are distant. No significant murmurs appreciated. Abdomen is morbidly obese and orders cannot be accurately palpated. There is no ascites. There is no direct tenderness or rebound tenderness or guarding. Extremities reveal +1 pitting edema and there is no cyanosis or clubbing at this point. Neurologically the patient is awake and alert 3 and the patient is not having any for local neurological deficit. Skin no open wounds or ulcers or sores. No cellulitis. Skeletal exam shows no joint deformities or active arthritis. Results - Laboratory Findings CBC and BMP: 01/16/17 06:16 01/16/17 06:16 PT/INR, D-dimer PT 23.3 sec (9.0-12.0) H 01/16/17 06:16 INR 2.4 (<1.2) H 01/16/17 06:16 Abnormal lab findings: Abnormal Labs 01/15/17 01/15/17 01/15/17 10:36 10:36 10:36 WBC 11.2 H RDW Neutrophils # 8.6 H PT INR APTT Carbon Dioxide BUN 36 H Creatinine 1.10 H Glucose 157 H POC Glucose (mg/dL) Hemoglobin A1c AST 38 H Alkaline Phosphatase 127 H Total Creatine Kinase 293 H CK-MB (CK-2) 3.7 H* 01/15/17 01/15/17 01/15/17 10:36 15:56 15:56 WBC RDW Neutrophils # PT 24.9 H INR 2.6 H APTT 32.5 H Carbon Dioxide BUN Creatinine Glucose POC Glucose (mg/dL) Hemoglobin A1c 7.0 H AST Alkaline Phosphatase Total Creatine Kinase CK-MB (CK-2) 3.3 H* 01/15/17 01/15/17 01/16/17 20:46 22:09 05:38 WBC RDW Neutrophils # PT INR APTT Carbon Dioxide BUN Creatinine Glucose POC Glucose (mg/dL) 152 H 143 H Hemoglobin A1c AST Alkaline Phosphatase Total Creatine Kinase CK-MB (CK-2) 3.2 H* 01/16/17 01/16/17 01/16/17 06:16 06:16 06:16 WBC RDW 15.6 H Neutrophils # PT 23.3 H INR 2.4 H APTT Carbon Dioxide 32 H BUN 31 H Creatinine 1.24 H Glucose 135 H POC Glucose (mg/dL) Hemoglobin A1c AST Alkaline Phosphatase Total Creatine Kinase CK-MB (CK-2) 01/16/17 11:38 WBC RDW Neutrophils # PT INR APTT Carbon Dioxide BUN Creatinine Glucose POC Glucose (mg/dL) 146 H Hemoglobin A1c AST Alkaline Phosphatase Total Creatine Kinase CK-MB (CK-2) - Diagnostic Findings Chest x-ray: image reviewed Assessment and Plan Plan: Assessment 1 acute shortness of breath most likely related to CHF. The patient has CHF which is essentially of a diastolic dysfunction/hypertensive heart disease in addition to secondary pulmonary hypertension which is moderate to severe in nature. As such she may have a component of left and right-sided heart failure. She presented with increased fluid overload and increased edema in lower extremities and pulmonary vascular congestion and she is nicely responding to diuretics. Coronaries from 2015 was within normal limits 2 valvular heart disease with suspected aortic stenosis. Unsure if the patient has a bicuspid or tricuspid aortic valve yet there is mild to moderate degree of aortic stenosis based on previous echocardiogram 3 severe obstructive sleep apnea with an AHI of 92, noncompliant to BiPAP therapy which is supposed to be at a pressure of 22/18 cm of water 4 morbid obesity 5 normal coronaries 6 proximal atrial fibrillation and patient's cardiac rhythm is sinus and the patient has been fully anticoagulate with warfarin 7 CHF with an ejection fraction of 45% 8 bicuspid aortic valve related to a previous TIMOTHY 9 previous cardioversion following a TIMOTHY to treat atrial fibrillation and the patient has been on amiodarone which has maintained this patient's cardiac rhythm is sinus 10 diabetes mellitus with poorly controlled blood sugars 11 hyperkalemia probably due to hyperglycemia, no EKG changes 12 chronic bronchial asthma 13 remote history of cellulitis of the lower extremities Plan Continued IV Lasix. Salt restriction. Monitor urine output. Monitor renal function. Pulmonary status is stable. The patient will be encouraged to go back on her BiPAP on outpatient basis. Bronchial asthma is currently inactive and stable. Will discuss this case with cardiology. We'll continue to follow make further recommendations based on her progress.
--- NOTE | 2017-01-16 14:27 | P.PN ---
<BartolomeJason - Last Filed: 01/16/17 21:01> Progress Note - Text Attending note. Date of service-01/16/2017 This patient was seen and examined by me . Discussed the patient with my nurse practitioner Ms. Pope. Patient admitted with shortness of breath. Multifactorial. For whatever element of fluid overload with cor pulmonale and also element of diastolic dysfunction. Doing better with IV Lasix On examination: Lungs distant breath sounds, cardiovascular pulses muffled. Some edema present Investigations: BUN 31, creatinine 1.24, INR 2.4 Assessment and plan: Acute on chronic cor pulmonale secondary to secondary pulmonary hypertension. Acute on chronic diastolic dysfunction EF 60-65%/CHF exacerbation. Discussed with Dr. Azevedo. Continue with IV diuresis. Patient seems to be getting better. <NikoJaimie Gricel - Last Filed: 01/16/17 21:11> Progress Note - Text DATE OF SERVICE: 01/16/2017 PRESENTING COMPLAINT: Short of breath HISTORY OF PRESENT ILLNESS: 66-year-old female presented with increasing shortness of breath squeezing sensation in the anterior chest lasting for a few hours. No associated symptoms in fact relating symptoms got better on their own. Chest x-ray revealed congestive cardiac failure, BNP 2460 on admission. INTERVAL HISTORY: 01/16/2017: Sitting up in bed, appears comfortable. IV Lasix continues, as she is thought to be in heart failure, diastolic dysfunction/hypertensive heart disease as well as secondary pulmonary hypertension weight is down 1 kg today. Creatinine is up to 1.2. INR 2.4, Tolerating her diet eating between 50 and 80% of her meals, ambulating to and from the bathroom without difficulty. No shortness of breath. Last BM prior to admission. REVIEW OF SYSTEMS: Done for constitutional ,cardiovascular, GI, pulmonary with relevant findings as above. CURRENT MEDICATIONS DuoNeb's, aspirin, Lipitor, Lasix 40 mg IV every 8 hours, lisinopril 5 mg by mouth daily, Lopressor 50 mg by mouth twice a day PHYSICAL EXAM VITAL SIGNS: Temperature 97.9, pulse 60, respiratory rate 16, blood pressure 137/72, oxygen saturation 94% on room air. GENERAL APPEARANCE: Sitting up in bed, not in distress. EYES: Pupils equal. Conjunctiva normal. NECK: JVD not raised. Mass not palpable. RESPIRATORY: Respiratory effort normal. Lungs diminished bilaterally to auscultation. CARDIOVASCULAR: First and second sounds normal. Mild edema. ABDOMEN: Soft. Liver and spleen not palpable. No tenderness. No mass palpable. PSYCHIATRY: Alert and oriented x3. Mood and affect normal. INVESTIGATIONS: BUN 31, creatinine 1.24, INR 2.4. Accu-Cheks noted. ASSESSMENT: -Acute chest pain/shortness of breath likely related to CHF which is diastolic dysfunction/hypertensive heart disease as well as secondary pulmonary hypertension. -Congestive heart failure in a patient with an ejection fraction of 45%. -Paroxysmal atrial fibrillation chronically on Coumadin, currently in sinus rhythm -Hypothyroidism. -Obstructive sleep apnea does not use a CPAP. -Ordered obesity, BMI 51. -Hyperlipidemia. -Diabetes mellitus type 2 chronically on oral hypoglycemics. -Acute hypoxic respiratory failure, on 3 L of oxygen at home -Secondary pulmonary hypertension, moderate to severe nature PLAN: Continue IV Lasix for another 24 hours, low-sodium diet, monitor urine output, monitor renal function and daily weight. Plan of care discussed with the patient the bedside, may discharge tomorrow, we will continue to monitor closely. PROJECT LANDSCAPE ARCHITECT statement: Patient was seen and examined by nurse practitioner Jaimie Pope and all elements of the case discussed with attending Dr. Mancuso
[2017-01-16 16:47] LABS: Glucose,Whole Blood 109 mg/dL (75-99)
[2017-01-16 21:06] LABS: Glucose,Whole Blood 199 mg/dL (75-99)
[2017-01-16] MEDS: INSULIN GLARGINE 100 UNIT/ML 10 ML VIAL SQ SCH (22:05)
[2017-01-16] MEDS: SODIUM CHLORIDE 0.9% 1,000 ML IV SCH (22:05)
[2017-01-16] MEDS: ATORVASTATIN 40 MG TAB PO SCH (22:05)
[2017-01-16] MEDS: WARFARIN 5 MG TAB PO SCH (22:53)
[2017-01-16] MEDS: NYSTATIN 100,000 UNIT/GM POWD 15 GM TOPICAL SCH (22:53)
[2017-01-17] MEDS: LEVOTHYROXINE 50 MCG TAB PO SCH (05:56)
[2017-01-17] MEDS: FUROSEMIDE 10 MG/ML 4 ML VIAL IV SCH (05:56)
[2017-01-17] MEDS: ACETAMINOPHEN TAB 500 MG TAB PO PRN (06:04)
[2017-01-17 06:32] LABS: Calcium 8.8 mg/dL (8.4-10.2); Potassium 3.8 mmol/L (3.5-5.1)
[2017-01-17] MEDS: INSULIN LISPRO (humaLOG) 300 UNIT/3 ML VIAL SQ SCH ×4 (06:39→21:21)
[2017-01-17 06:40] LABS: INR 2.3 (<1.2); Prothrombin Time 22.2 sec (9.0-12.0)
[2017-01-17] MEDS: metFORMIN 500 MG TAB PO SCH ×2 (06:40→17:08)
[2017-01-17] MEDS: SYMBICORT 160-4.5 MCG INHALER INHALATION SCH ×2 (09:03→20:40)
[2017-01-17] MEDS ORDERED: POLYETHYLENE GLYCOL 3350 17 GM POWD.PACK PO SCH (09:30)
[2017-01-17] MEDS: NYSTATIN 100,000 UNIT/GM POWD 15 GM TOPICAL SCH ×3 (09:47→21:24)
[2017-01-17] MEDS: ASPIRIN 325 MG TAB PO SCH (09:47)
[2017-01-17] MEDS: LORATADINE 10 MG TAB PO SCH (09:48)
[2017-01-17] MEDS: METOPROLOL TARTRATE 50 MG TAB PO SCH ×2 (09:48→20:43)
[2017-01-17] MEDS: LISINOPRIL 5 MG TAB PO SCH (09:48)
[2017-01-17] MEDS: FAMOTIDINE 20 MG TAB PO SCH (09:48)
[2017-01-17] MEDS: NITROGLYCERIN OINT 1 INCH/GM PACKET TOPICAL SCH ×4 (09:49→21:23)
[2017-01-17] MEDS: FERROUS SULFATE 325 MG TAB PO SCH ×3 (09:49→20:42)
[2017-01-17] MEDS: SENNOSIDES 8.6 MG TAB PO SCH ×3 (10:09→20:45)
--- NOTE | 2017-01-17 11:16 | P.PN ---
Subjective This 66-year-old female patient, is morbidly obese and she was Hospital as for increased shortness of breath and some chest discomfort. She describes some squeezing sensation over her chest. This was not related to activity or exertion. No radiation. No angina. No back pain. Her chest x-ray on admission showed some increased pulmonary vascular marking and congestion. She has chronic lower extremity edema. She was thought to be in heart failure. Troponins were negative. BNP level is 2460. The patient is being on IV Lasix right now and she is receiving 40 mg every 8 hours with excellent clinical response. She is feeling much better today. No cough or congestion. No significant sputum production or hemoptysis. No other complaints otherwise for now This patient is known to me. Of taking care of her during an earlier hospitalization back in June 2016. Back then the patient came in to the ICU lethargic and she was and CO2 narcosis. She apparently took some painkillers/ opiates and she went into hypercapnic respiratory failure. the patient has severe obstructive sleep apnea with an AHI of 92 and she has been maintained on a BiPAP at a pressure of 22/18 cm of water on outpatient basis. She is also known to have bronchial asthma, valvular heart disease with a bicuspid versus a tricuspid aortic valve and CHF with an ejection fraction of 45%. Previous cardiac catheterization has shown normal coronaries. The patient is morbidly obese. She has approximately 2 fibrillation and she has been maintained on long -term articulation with warfarin. On 01/17/2017 the patient is being seen in follow-up. The patient is doing well. The patient has no specific complaints. She is less short of breath compared to yesterday. The patient is still being diuresis with IV Lasix. Lower extremity edema is improving. She is receiving 40 mg of IV Lasix every 8 hours. There is an episode balance of at least 3 L over the past 48 hours. Her PT/INR is therapeutic. BUN/creatinine are stable with albumin of 32 and creatinine of 1.1 without any significant electrolyte disturbances. No other complaints for now. The patient is not having any chest pain or shortness of breath. Objective - Vital Signs Vital signs: Vital Signs Temp 96.8 F L 01/17/17 09:30 Pulse 66 01/17/17 09:30 Resp 20 01/17/17 09:30 BP 140/67 01/17/17 09:30 Pulse Ox 93 L 01/17/17 09:30 Intake & Output 01/16/17 01/17/17 01/17/17 18:59 06:59 18:59 Intake Total 780 180 Output Total 650 1550 Balance 130 -1550 180 Weight 118.4 kg Intake: IV 160 Sodium Chloride 0.9% 1, 160 000 ml @ 20 mls/hr IV . Q24H [facility] Rx#:[id number] Oral 620 180 Output: Urine 650 1550 Other: Voiding Method Toilet Toilet Toilet # Voids 1 - Exam Gen. appearance the patient is calm and comfortable. She is morbidly obese pH is not in acute respiratory distress. Not using his muscles of breathing. Head exam was generally normal. There was no scleral icterus or corneal arcus. Mucous membranes were moist.Neck was supple and without jugular venous distension, thyromegaly, or carotid bruits. Carotids were easily palpable bilaterally. There was no adenopathy. Lung sounds are diminished in lung bases bilaterally along with some few bibasilar crackles and no wheezes or rhonchi. Heart sounds show accentuation of the second heart sound. Overall the heart sounds are distant. No significant murmurs appreciated. Abdomen is morbidly obese and orders cannot be accurately palpated. There is no ascites. There is no direct tenderness or rebound tenderness or guarding. Extremities reveal +1 pitting edema and there is no cyanosis or clubbing at this point. Neurologically the patient is awake and alert 3 and the patient is not having any for local neurological deficit. Skin no open wounds or ulcers or sores. No cellulitis. Skeletal exam shows no joint deformities or active arthritis. - Labs CBC & Chem 7: 01/16/17 06:16 01/17/17 06:04 Labs: Abnormal Lab Results - Last 24 Hours (Table) 01/16/17 01/16/17 01/16/17 Range/Units 11:38 16:42 21:04 PT (9.0-12.0) sec INR (<1.2) Carbon Dioxide (22-30) mmol/L BUN (7-17) mg/dL Creatinine (0.52-1.04) mg/dL POC Glucose (mg/dL) 146 H 109 H 199 H (75-99) mg/dL 01/17/17 01/17/17 Range/Units 06:04 06:04 PT 22.2 H (9.0-12.0) sec INR 2.3 H (<1.2) Carbon Dioxide 34 H (22-30) mmol/L BUN 32 H (7-17) mg/dL Creatinine 1.17 H (0.52-1.04) mg/dL POC Glucose (mg/dL) (75-99) mg/dL Assessment and Plan Plan: Assessment 1 acute shortness of breath most likely related to CHF. The patient has CHF which is essentially of a diastolic dysfunction/hypertensive heart disease in addition to secondary pulmonary hypertension which is moderate to severe in nature. As such she may have a component of left and right-sided heart failure. She presented with increased fluid overload and increased edema in lower extremities and pulmonary vascular congestion and she is nicely responding to diuretics. Coronaries from 2014 was within normal limits On 01/17/2017 the patient is being seen in follow-up. The patient is improved considerably with diuresis pH is receiving Lasix 40 mg IV push every 8 hours. The neck fluid balance is -3 L over the past 24 hours to 48 hours. The patient is not having any major respiratory distress. Pulse ox on room air is above 90% . Lower extremity edema is also improving. She has no chest pain. 2 valvular heart disease with suspected aortic stenosis. Unsure if the patient has a bicuspid or tricuspid aortic valve yet there is mild to moderate degree of aortic stenosis based on previous echocardiogram 3 severe obstructive sleep apnea with an AHI of 92, noncompliant to BiPAP therapy which is supposed to be at a pressure of 22/18 cm of water 4 morbid obesity 5 normal coronaries 6 proximal atrial fibrillation and patient's cardiac rhythm is sinus and the patient has been fully anticoagulate with warfarin 7 CHF with an ejection fraction of 45% 8 bicuspid aortic valve related to a previous TIMOTHY 9 previous cardioversion following a TIMOTHY to treat atrial fibrillation and the patient has been on amiodarone which has maintained this patient's cardiac rhythm is sinus 10 diabetes mellitus with poorly controlled blood sugars 11 hyperkalemia probably due to hyperglycemia, no EKG changes 12 chronic bronchial asthma 13 remote history of cellulitis of the lower extremities Plan Continued IV Lasix. The patient can be switched to oral Lasix if this is acceptable by cardiology. Continue to go ventilation with warfarin. INR is therapeutic. Would encourage use of BiPAP on outpatient basis knowing that the patient has severe obstructive sleep apnea. Renal function is stable. Electrodes are stable. We'll continue to follow.
[2017-01-17 11:48] LABS: Glucose,Whole Blood 76 mg/dL (75-99)
--- NOTE | 2017-01-17 12:11 | P.PN ---
Subjective Principal diagnosis: Shortness of breath This is a 66-year-old female with history of diabetes, hypertension, paroxysmal atrial fibrillation, on Coumadin for anticoagulation, hypertension, sleep apnea, follows regularly with Dr. Mccormick in the office. She presented to the hospital with symptoms of shortness of breath. X-ray on admission did reveal congestive cardiac failure. BNP level on admission was 2460. Patient was initiated on IV Lasix, her weight is down 1 kg today. Creatinine is 1.2 today. BUN 31, potassium 4.2, INR 2.4. Patient was seen and examined this morning, feeling much better overall. Ambulating in the room to the bathroom without any difficulty. Blood pressure 120/60 with a heart rate in the 50s to 60s. 01/17/2017 Patient seen and examined this morning, weight down 3 kg today. Feeling much better overall. Complaining of mild sore throat today. Blood pressure 134/78, heart rate in the 60s. 92% on room air. INR 2.2, BUN 32, creatinine 1.1, potassium 3.8. We'll discontinue the IV Lasix today and start the patient on oral diuretics. She may be able to be discharged from our perspective, we'll make her a follow-up appointment in the office post discharge. Objective - Vital Signs Vital signs: Vital Signs Temp 96.9 F L 01/17/17 12:00 Pulse 61 01/17/17 12:00 Resp 20 01/17/17 12:00 BP 134/78 01/17/17 12:00 Pulse Ox 92 L 01/17/17 12:00 Intake & Output 01/16/17 01/17/17 01/17/17 18:59 06:59 18:59 Intake Total 780 180 Output Total 650 1550 Balance 130 -1550 180 Weight 118.4 kg Intake: IV 160 Sodium Chloride 0.9% 1, 160 000 ml @ 20 mls/hr IV . Q24H [facility] Rx#:[id number] Oral 620 180 Output: Urine 650 1550 Other: Voiding Method Toilet Toilet Toilet # Voids 1 - Exam PHYSICAL EXAMINATION: HEENT: Head is atraumatic, normocephalic. Pupils equal, round. Neck is supple. There is no elevated jugular venous pressure. HEART EXAMINATION: Heart S1 and S2 systolic ejection murmur is heard. CHEST EXAMINATION: Lungs are clear to auscultation ABDOMEN: Soft, nontender. Bowel sounds are heard. No organomegaly noted. EXTREMITIES: 2+ peripheral pulses with evidence of peripheral edema and no calf tenderness noted. NEUROLOGIC patient is awake, alert and oriented -3. . - Labs CBC & Chem 7: 01/16/17 06:16 01/17/17 06:04 Labs: Abnormal Lab Results - Last 24 Hours (Table) 01/16/17 01/16/17 01/17/17 Range/Units 16:42 21:04 06:04 PT (9.0-12.0) sec INR (<1.2) Carbon Dioxide 34 H (22-30) mmol/L BUN 32 H (7-17) mg/dL Creatinine 1.17 H (0.52-1.04) mg/dL POC Glucose (mg/dL) 109 H 199 H (75-99) mg/dL 01/17/17 Range/Units 06:04 PT 22.2 H (9.0-12.0) sec INR 2.3 H (<1.2) Carbon Dioxide (22-30) mmol/L BUN (7-17) mg/dL Creatinine (0.52-1.04) mg/dL POC Glucose (mg/dL) (75-99) mg/dL Assessment and Plan Plan: Assessment and plan #1 diastolic congestive heart failure acute on chronic #2 paroxysmal atrial fibrillation on Coumadin #3 hypertension #4 hyperlipidemia #5 diabetes #6 sleep apnea Plan We'll discontinue the IV Lasix and start the patient on Lasix 60 mg one tablet by mouth twice a day. She may be able to be discharged from cardiology's perspective, we'll make her a follow-up appointment in the office post discharge. DNP note has been reviewed, I agree with a documented findings and plan of care. Patient was seen and examined.
--- NOTE | 2017-01-17 12:44 | P.PN ---
<Jaimie Pope - Last Filed: 01/17/17 12:44> Progress Note - Text DATE OF SERVICE: 01/17/2017 PRESENTING COMPLAINT: Short of breath HISTORY OF PRESENT ILLNESS: 66-year-old female presented with increasing shortness of breath squeezing sensation in the anterior chest lasting for a few hours. No associated symptoms in fact relating symptoms got better on their own. Chest x-ray revealed congestive cardiac failure, BNP 2460 on admission. INTERVAL HISTORY: 01/17/2017: Sitting up in bed, appears tired. Complains of a sore throat. IV Lasix continues however cardiology will switch to oral later today. Patient thought to be in heart failure, diastolic dysfunction/hypertensive heart disease as well as secondary pulmonary hypertension she is diuresing well, net fluid balance down about 3 L in the last 24-48 hours. Creatinine is 1.1, INR 2.3, tolerating her diet eating between 40 and 50% of her meals, ambulate from the bathroom without difficulty. No shortness of breath. Last BM prior to admission, cathartics provided. 01/16/2017: Sitting up in bed, appears comfortable. Complains of a sore throat. IV Lasix continues, as she is thought to be in heart failure, diastolic dysfunction/ hypertensive heart disease as well as secondary pulmonary hypertension diuresing well, net fluid balance down 3 L in the last 24-48 hours. Cardiology will convert IV Lasix to oral today. Creatinine is up to 1.2. INR 2.4, Tolerating her diet eating between 50 and 80% of her meals, ambulating to and from the bathroom without difficulty. No shortness of breath. Last BM prior to admission. REVIEW OF SYSTEMS: Done for constitutional ,cardiovascular, GI, pulmonary with relevant findings as above. CURRENT MEDICATIONS DuoNeb's, aspirin, Lipitor, Lasix 40 mg IV every 8 hours, lisinopril 5 mg by mouth daily, Lopressor 50 mg by mouth twice a day PHYSICAL EXAM VITAL SIGNS: T temperature 97.5, pulse 117, respiratory rate 12, blood pressure 131/69, oxygen saturation 99% on 2 L. GENERAL APPEARANCE: Sitting up on the bed, not in distress. EYES: Pupils equal. Conjunctiva normal. NECK: JVD not raised. Mass not palpable. RESPIRATORY: Respiratory effort normal. Lungs diminished bilaterally to auscultation. CARDIOVASCULAR: First and second sounds normal. Mild edema. ABDOMEN: Soft. Liver and spleen not palpable. No tenderness. No mass palpable. PSYCHIATRY: Alert and oriented x3. Mood and affect normal. INVESTIGATIONS: INR 2.3, BUN 32, creatinine 1.17, Accu-Cheks noted. ASSESSMENT: -Acute on chronic cor pulmonale secondary to secondary pulmonary hypertension. -Acute on chronic diastolic dysfunction EF 60-65%/CHF exacerbation -Paroxysmal atrial fibrillation chronically on Coumadin, currently in sinus rhythm -Hypothyroidism. -Obstructive sleep apnea does not use a CPAP. -Ordered obesity, BMI 51. -Hyperlipidemia. -Diabetes mellitus type 2 chronically on oral hypoglycemics. -Acute hypoxic respiratory failure, on 3 L of oxygen at home -Secondary pulmonary hypertension, moderate to severe nature PLAN: Continue IV Lasix, will switch to oral later today 60 mg twice a day, continue low-sodium diet, monitor urine output, monitor renal function and daily weight. Should use BiPAP on an outpatient basis due to severe obstructive sleep apnea. Will likely discharge in the next 24-48 hours. Plan of care discussed with the patient the bedside, may discharge tomorrow, we will continue to monitor closely. VIRTUAL OFFICE ASSISTANT statement: Patient was seen and examined by nurse practitioner Jaimie Pope and all elements of the case discussed with attending Dr. Mancuso <Jason Mancuso - Last Filed: 01/17/17 13:33> Progress Note - Text Attending note. Date of service-01/17/2017 This patient was seen and examined by me . Discussed the patient with my nurse practitioner Ms. Pope. breathing is getting better. Edema coming down. On IV Lasix. On examination: lungs-clear. Edema decreased Investigations: BUN 32, creatinine 1.17 Assessment and plan: acute on chronic cor pulmonale secondary to secondary pulmonary hypertension and acute CHF exacerbation from diastolic dysfunction improving. Lasix is being ordered as per cardio she. Hoping patient go home and24 hours.
[2017-01-17 14:00] LABS: Glucose,Whole Blood 83 mg/dL (75-99)
[2017-01-17] MEDS: FUROSEMIDE 20 MG TAB PO SCH (15:41)
[2017-01-17 16:50] LABS: Glucose,Whole Blood 105 mg/dL (75-99)
[2017-01-17] MEDS: WARFARIN 5 MG TAB PO SCH (17:40)
[2017-01-17] MEDS: ATORVASTATIN 40 MG TAB PO SCH (20:42)
[2017-01-17] MEDS: SODIUM CHLORIDE 0.9% 1,000 ML IV SCH (20:45)
[2017-01-17 21:06] LABS: Glucose,Whole Blood 115 mg/dL (75-99)
[2017-01-17] MEDS: INSULIN GLARGINE 100 UNIT/ML 10 ML VIAL SQ SCH (21:21)
[2017-01-18 02:12] VITALS: TEMP 97.1
[2017-01-18 04:31] VITALS: RESP 16
[2017-01-18 06:28] LABS: Glucose,Whole Blood 94 mg/dL (75-99)
[2017-01-18] MEDS: INSULIN LISPRO (humaLOG) 300 UNIT/3 ML VIAL SQ SCH ×2 (06:30→13:02)
[2017-01-18] MEDS: LEVOTHYROXINE 50 MCG TAB PO SCH (06:32)
[2017-01-18] MEDS: metFORMIN 500 MG TAB PO SCH (06:58)
[2017-01-18] MEDS: SYMBICORT 160-4.5 MCG INHALER INHALATION SCH (07:49)
[2017-01-18] MEDS: FUROSEMIDE 20 MG TAB PO SCH (09:41)
[2017-01-18] MEDS: SENNOSIDES 8.6 MG TAB PO SCH (09:41)
[2017-01-18] MEDS: LISINOPRIL 5 MG TAB PO SCH (09:41)
[2017-01-18] MEDS: LORATADINE 10 MG TAB PO SCH (09:42)
[2017-01-18] MEDS: NITROGLYCERIN OINT 1 INCH/GM PACKET TOPICAL SCH ×2 (09:42→13:02)
[2017-01-18] MEDS: FERROUS SULFATE 325 MG TAB PO SCH (09:42)
[2017-01-18] MEDS: FAMOTIDINE 20 MG TAB PO SCH (09:42)
[2017-01-18] MEDS: NYSTATIN 100,000 UNIT/GM POWD 15 GM TOPICAL SCH (09:42)
[2017-01-18] MEDS: METOPROLOL TARTRATE 50 MG TAB PO SCH (09:42)
--- NOTE | 2017-01-18 09:43 | P.PN ---
Subjective Principal diagnosis: Congestive heart failure This is a 66-year-old female with history of diabetes, hypertension, paroxysmal atrial fibrillation, on Coumadin for anticoagulation, hypertension, sleep apnea, follows regularly with Dr. Mccormick in the office. She presented to the hospital with symptoms of shortness of breath. X-ray on admission did reveal congestive cardiac failure. BNP level on admission was 2460. 01/18/2017 Feeling much better overall. Complaining of mild sore throat today. Denies having any chest pain or chest discomfort. She is laying flat in bed without being short of breath. Objective - Vital Signs Vital signs: Vital Signs Temp 97.1 F L 01/18/17 04:00 Pulse 67 01/18/17 04:00 Resp 16 01/18/17 04:00 BP 117/56 01/18/17 04:00 Pulse Ox 96 01/18/17 04:00 Intake & Output 01/17/17 01/18/17 01/18/17 18:59 06:59 18:59 Intake Total 540 600 237 Output Total 1200 Balance -660 600 237 Weight 116.4 kg Intake: Oral 540 600 237 Output: Urine 1200 Other: Voiding Method Toilet Toilet # Voids 2 - Constitutional General appearance: Present: no acute distress - Respiratory Respiratory: bilateral: wheezing - Cardiovascular Heart sounds: normal: S1, S2 - Labs CBC & Chem 7: 01/16/17 06:16 01/17/17 06:04 Labs: Abnormal Lab Results - Last 24 Hours (Table) 01/17/17 01/17/17 Range/Units 16:48 21:04 POC Glucose (mg/dL) 105 H 115 H (75-99) mg/dL Assessment and Plan Plan: The patient is feeling better indeterminable shortness of breath. And she denies having any chest pain or discomfort. We'll continue the current medical treatment including oral diuretics. From the cardiac vascular standpoint of view, the patient can be discharged home
[2017-01-18 10:54] VITALS: BP 107/57; PULSE 71
[2017-01-18] MEDS ORDERED: ASPIRIN 81 MG PO SCH (11:45)
[2017-01-18] MEDS ORDERED: LACTULOSE 20 GM/30 ML CUP PO ONE (12:06)
--- NOTE | 2017-01-18 16:05 | P.PN ---
Subjective This 66-year-old female patient, is morbidly obese and she was Hospital as for increased shortness of breath and some chest discomfort. She describes some squeezing sensation over her chest. This was not related to activity or exertion. No radiation. No angina. No back pain. Her chest x-ray on admission showed some increased pulmonary vascular marking and congestion. She has chronic lower extremity edema. She was thought to be in heart failure. Troponins were negative. BNP level is 2460. The patient is being on IV Lasix right now and she is receiving 40 mg every 8 hours with excellent clinical response. She is feeling much better today. No cough or congestion. No significant sputum production or hemoptysis. No other complaints otherwise for now This patient is known to me. Of taking care of her during an earlier hospitalization back in June 2016. Back then the patient came in to the ICU lethargic and she was and CO2 narcosis. She apparently took some painkillers/ opiates and she went into hypercapnic respiratory failure. the patient has severe obstructive sleep apnea with an AHI of 92 and she has been maintained on a BiPAP at a pressure of 22/18 cm of water on outpatient basis. She is also known to have bronchial asthma, valvular heart disease with a bicuspid versus a tricuspid aortic valve and CHF with an ejection fraction of 45%. Previous cardiac catheterization has shown normal coronaries. The patient is morbidly obese. She has approximately 2 fibrillation and she has been maintained on long -term articulation with warfarin. On 01/17/2017 the patient is being seen in follow-up. The patient is doing well. The patient has no specific complaints. She is less short of breath compared to yesterday. The patient is still being diuresis with IV Lasix. Lower extremity edema is improving. She is receiving 40 mg of IV Lasix every 8 hours. There is an episode balance of at least 3 L over the past 48 hours. Her PT/INR is therapeutic. BUN/creatinine are stable with albumin of 32 and creatinine of 1.1 without any significant electrolyte disturbances. No other complaints for now. The patient is not having any chest pain or shortness of breath. On 01/18/2017 the patient has been diuresed adequately. And the patient is feeling much better. The patient is less short of breath. Lower extremity edema is improved. Renal function is stable. The patient will be taken off the IV Lasix and the patient will be switched to oral Lasix and discharge planning is in progress. She has no specific complaints otherwise for now. The patient is doing well for the most part. Objective - Vital Signs Vital signs: Vital Signs Temp 97.1 F L 01/18/17 04:00 Pulse 71 01/18/17 08:00 Resp 16 01/18/17 08:00 BP 107/57 01/18/17 08:00 Pulse Ox 93 L 01/18/17 08:00 Intake & Output 01/17/17 01/18/17 01/18/17 18:59 06:59 18:59 Intake Total 540 600 474 Output Total 1200 300 Balance -660 600 174 Weight 116.4 kg Intake: Oral 540 600 474 Output: Urine 1200 300 Other: Voiding Method Toilet Toilet Toilet # Voids 2 - Exam Gen. appearance the patient is calm and comfortable. She is morbidly obese pH is not in acute respiratory distress. Not using his muscles of breathing. Head exam was generally normal. There was no scleral icterus or corneal arcus. Mucous membranes were moist.Neck was supple and without jugular venous distension, thyromegaly, or carotid bruits. Carotids were easily palpable bilaterally. There was no adenopathy. Lung sounds are diminished in lung bases bilaterally along with some few bibasilar crackles and no wheezes or rhonchi. Heart sounds show accentuation of the second heart sound. Overall the heart sounds are distant. No significant murmurs appreciated. Abdomen is morbidly obese and orders cannot be accurately palpated. There is no ascites. There is no direct tenderness or rebound tenderness or guarding. Extremities reveal +1 pitting edema and there is no cyanosis or clubbing at this point. Neurologically the patient is awake and alert 3 and the patient is not having any for local neurological deficit. Skin no open wounds or ulcers or sores. No cellulitis. Skeletal exam shows no joint deformities or active arthritis. - Labs CBC & Chem 7: 01/16/17 06:16 01/17/17 06:04 Labs: Abnormal Lab Results - Last 24 Hours (Table) 01/17/17 01/17/17 Range/Units 16:48 21:04 POC Glucose (mg/dL) 105 H 115 H (75-99) mg/dL Assessment and Plan Plan: Assessment 1 acute shortness of breath most likely related to CHF. The patient has CHF which is essentially of a diastolic dysfunction/hypertensive heart disease in addition to secondary pulmonary hypertension which is moderate to severe in nature. As such she may have a component of left and right-sided heart failure. She presented with increased fluid overload and increased edema in lower extremities and pulmonary vascular congestion and she is nicely responding to diuretics. Coronaries from 2014 was within normal limits On 01/17/2017 the patient is being seen in follow-up. The patient is improved considerably with diuresis pH is receiving Lasix 40 mg IV push every 8 hours. The neck fluid balance is -3 L over the past 24 hours to 48 hours. The patient is not having any major respiratory distress. Pulse ox on room air is above 90% . Lower extremity edema is also improving. She has no chest pain. On 01/18/2017 the patient is doing well. The patient has been diuresed adequately. Patient is back to baseline. No new complaints otherwise for now. The INR is therapeutic. Renal function stable. 2 valvular heart disease with suspected aortic stenosis. Unsure if the patient has a bicuspid or tricuspid aortic valve yet there is mild to moderate degree of aortic stenosis based on previous echocardiogram 3 severe obstructive sleep apnea with an AHI of 92, noncompliant to BiPAP therapy which is supposed to be at a pressure of 22/18 cm of water 4 morbid obesity 5 normal coronaries 6 proximal atrial fibrillation and patient's cardiac rhythm is sinus and the patient has been fully anticoagulate with warfarin 7 CHF with an ejection fraction of 45% 8 bicuspid aortic valve related to a previous TIMOTHY 9 previous cardioversion following a TIMOTHY to treat atrial fibrillation and the patient has been on amiodarone which has maintained this patient's cardiac rhythm is sinus 10 diabetes mellitus with poorly controlled blood sugars 11 hyperkalemia probably due to hyperglycemia, no EKG changes 12 chronic bronchial asthma 13 remote history of cellulitis of the lower extremities Plan Switch this patient oral Lasix and discharged home. Strongly encouraged to go back on the BiPAP. I offered my services for CHATO treatment if the patient decides to proceed with the treatment. Clear for discharge from a pulmonary standpoint.
--- NOTE | 2017-01-18 18:25 | P.DS ---
Providers Date of admission: 01/15/17 11:41 Expected date of discharge: 01/18/17 Attending physician: Jason Mancuso Consults: 01/15/17 11:41 Consult Physician Routine Consulting Provider: Kraig Mccormick Consult Reason/Comments: cp, chf Do you want consulting provider notified?: Yes 01/15/17 21:51 Consult Physician Routine Consulting Provider: Anton Azevedo Consult Reason/Comments: sob Do you want consulting provider notified?: Yes Primary care physician: Dontae [facility] Course: FINAL DIAGNOSES: -Acute on chronic cor pulmonale secondary to secondary pulmonary hypertension. -Acute on chronic CHF exacerbation diastolic dysfunction EF 60-65%/ -Paroxysmal atrial fibrillation chronically on Coumadin, currently in sinus rhythm -Hypothyroidism. -Obstructive sleep apnea does not use a CPAP. -Ordered obesity, BMI 51. -Hyperlipidemia. -Diabetes mellitus type 2 chronically on oral hypoglycemics. -Acute hypoxic respiratory failure, on 3 L of oxygen at home -Secondary pulmonary hypertension, moderate to severe nature - HOSPTIAL COURSE: 66-year-old female presented with increasing shortness of breath really sensation in the anterior chest last for a few hours. No associated symptoms in fact resenting symptoms got better on their own. Chest x-ray revealed congestive heart failure, BNP 2460 on admission and was admitted for the same. Cardiology and pulmonology consulted. Cardiology initiated on IV Lasix, diuresed well. Able to lie flat in bed without being short of breath. Patient is well-known to the pulmonology group agree with the IV Lasix, feeling that her acute shortness of breath was related to her CHF. Related directly to her diastolic dysfunction and hypertensive heart disease. Noted to have reddened areas underneath her pannus on her abdomen, Mycostatin powder provided. Overall condition improved breathing improved, lower extremity edema improved, able to ambulate short distances without any difficulty, tolerating her diet eating between 50 and 75% of her meals, last BM prior to admission. Patient is back to her baseline and is stable for discharge and would like to go home. PHYSICAL EXAM: CARDIOVASCULAR: First and second sounds noted mild edema to lower extremities. RESPIRATORY: Effort normal, lungs diminished bilaterally to auscultation. INTEGUMENT: has a large abdominal pannus that causes her to develop yeast infections in the folds, skin area underneath folds is reddened tender, Mycostatin powder provided. Patient was seen and examined by nurse practitioner Jaimie Pope in all elements of the case discussed with attending Dr. Mancuso DISPOSITION: Discharge home Patient Condition at Discharge: Stable Plan - Discharge Summary New Discharge Prescriptions: New Furosemide [Lasix] 60 mg PO BID@0900,1600 #90 tab Polyethylene Glycol 3350 [Miralax] 17 gm PO MoWeFr@0900 pack Sennosides [Senokot] 8.6 mg PO BID tab Nystatin 100,000 Unit/gm Powd [Mycostatin Powder] 1 applic TOPICAL TID #1 dispenser Continue Ranitidine HCl 150 mg PO BID Ferrous Sulfate [Feosol] 325 mg PO BID metFORMIN HCL 1,000 mg PO BID Atorvastatin [Lipitor] 40 mg PO HS Metoprolol Tartrate [Lopressor] 50 mg PO BID #60 tab Loratadine [Claritin] 10 mg PO DAILY Budesonide/Formoterol Fumarate [Symbicort 160-4.5 Mcg Inhaler] 1 puff INHALATION RT-BID Insulin Glulisine [Apidra Solostar] 8 unit SQ TID-W/MEALS Insulin Glargine [Lantus] 40 unit SQ HS Albuterol Inhaler [Ventolin Hfa Inhaler] 2 puff INHALATION RT-Q6H PRN PRN Reason: Shortness Of Breath Lisinopril [Zestril] 5 mg PO DAILY #30 tablet Levothyroxine Sodium [Synthroid] 50 mcg PO DAILY Ipratropium-Albuterol Nebulize [Duoneb 0.5 mg-3 mg/3 ml Soln] 3 ml INHALATION RT-QID PRN PRN Reason: Shortness Of Breath Warfarin [Coumadin] 5 mg PO SUTUWETHFRSA Warfarin [Coumadin] 7.5 mg PO MO Discontinued Furosemide [Lasix] 40 mg PO BID Discharge Medication List Ferrous Sulfate [Feosol] 325 mg PO BID 07/14/14 [History] Ranitidine HCl 150 mg PO BID 07/14/14 [History] metFORMIN HCL 1,000 mg PO BID 07/14/14 [History] Atorvastatin [Lipitor] 40 mg PO HS 09/28/15 [History] Metoprolol Tartrate [Lopressor] 50 mg PO BID #60 tab 10/08/15 [Rx] Budesonide/Formoterol Fumarate [Symbicort 160-4.5 Mcg Inhaler] 1 puff INHALATION RT-BID 04/02/16 [History] Insulin Glargine [Lantus] 40 unit SQ HS 04/02/16 [History] Insulin Glulisine [Apidra Solostar] 8 unit SQ TID-W/MEALS 04/02/16 [History] Loratadine [Claritin] 10 mg PO DAILY 04/02/16 [History] Albuterol Inhaler [Ventolin Hfa Inhaler] 2 puff INHALATION RT-Q6H PRN 11/13/16 [ History] Lisinopril [Zestril] 5 mg PO DAILY #30 tablet 11/15/16 [Rx] Ipratropium-Albuterol Nebulize [Duoneb 0.5 mg-3 mg/3 ml Soln] 3 ml INHALATION RT -QID PRN 01/13/17 [History] Levothyroxine Sodium [Synthroid] 50 mcg PO DAILY 01/13/17 [History] Warfarin [Coumadin] 5 mg PO SUTUWETHFRSA 01/15/17 [History] Warfarin [Coumadin] 7.5 mg PO MO 01/15/17 [History] Furosemide [Lasix] 60 mg PO BID@0900,1600 #90 tab 01/17/17 [Rx] Polyethylene Glycol 3350 [Miralax] 17 gm PO MoWeFr@0900 pack 01/17/17 [Rx] Sennosides [Senokot] 8.6 mg PO BID tab 01/17/17 [Rx] Nystatin 100,000 Unit/gm Powd [Mycostatin Powder] 1 applic TOPICAL TID #1 dispenser 01/18/17 [Rx] Follow up Appointment(s)/Referral(s): Kraig Mccormick MD [STAFF PHYSICIAN] - 1 Week (Office to call patient to schedule follow up. ) [facility], [NON-STAFF] - Dontae Quan DO [Primary Care Provider] - 1-2 days (Please call and schedule appointment during normal business hours. ) Anton Azevedo MD [STAFF PHYSICIAN] - 1 Week (Please call and schedule appointment during normal business hours. ) Ambulatory/Diagnostic Orders: Basic Metabolic Panel [LAB.AMB] Time Frame: 3 Days, Location: Determined By Patient Patient Instructions/Handouts: Heart Failure (DC), Pulmonary Edema (DC) Activity/Diet/Wound Care/Special Instructions: Appointment with Dr. Ej Camarena cancelled. Discharge Disposition: HOME WITH HOME HEALTH SERVICES
--- NOTE | 2017-01-19 19:31 | DS ---
DISCHARGE SUMMARY DATE OF SERVICE: 01/18/2017. This patient seen and examined by me on 01/18/2017. I discussed with my REINSURANCE CLERK, Ms. Pope. Patient doing much better. On exam, Lungs improved air entry. No edema. Care was discussed with the patient. ASSESSMENT: 1. Acute on chronic cor pulmonale secondary to pulmonary hypertension, improved. 2. Congestive heart failure exacerbation from diastolic dysfunction. Ejection fraction 60 to 65%, improved. PLAN: Patient's diuretics were adjusted. Care was discussed with the patient. The patient can go home. Discussion. Discharge planning more than 35 minutes. MMODL / IJN: [id number] /
--- NOTE | 2017-01-21 22:29 | DS ---
DISCHARGE SUMMARY ADDENDUM TO DISCHARGE SUMMARY: 1. Acute hypoxic respiratory failure secondary to congestive heart failure. 2. Chronic hypoxic respiratory failure, on home oxygen, from obesity hypoventilation syndrome. MMODL / IJN: [id number] /
[2017-01-22] MEDS ORDERED: WARFARIN 5 MG TAB PO SCH (18:00)
== END 2017-01-18 15:20 | disposition home health service (06) | DRG 291 ==
LOC: EC 09:24 → 6SEL 11:41
PROVIDERS: ADMIT Hospitalist; ATTEND Hospitalist
DX: I11.0 Hypertensive heart disease with heart failure (principal); J96.21 Acute and chronic respiratory failure with hypoxia; I27.2 Other secondary pulmonary hypertension; Z68.43 Body mass index [BMI] 50.0-59.9, adult; E11.65 Type 2 diabetes mellitus with hyperglycemia; I27.81 Cor pulmonale (chronic); Q23.1 Congenital insufficiency of aortic valve; Z99.81 Dependence on supplemental oxygen; E66.01 Morbid (severe) obesity due to excess calories; I50.33 Acute on chronic diastolic (congestive) heart failure; I48.0 Paroxysmal atrial fibrillation; E03.9 Hypothyroidism, unspecified; G47.33 Obstructive sleep apnea (adult) (pediatric); E78.5 Hyperlipidemia, unspecified; Z79.51 Long term (current) use of inhaled steroids; Z79.4 Long term (current) use of insulin; Z79.84 Long term (current) use of oral hypoglycemic drugs; Z79.01 Long term (current) use of anticoagulants; Z79.899 Other long term (current) drug therapy; Z90.49 Acquired absence of other specified parts of digestive tract; J44.9 Chronic obstructive pulmonary disease, unspecified; K21.9 Gastro-esophageal reflux disease without esophagitis; Z98.42 Cataract extraction status, left eye; Z98.41 Cataract extraction status, right eye; Z91.19 Patient's noncompliance with other medical treatment and regimen
CPT/HCPCS: 36415; 71020; 80048; 80053; 82550; 82553; 83036; 83735; 83880; 84484; 85025; 85027; 85610; 85730; 93005; 94640; 94760; 99285

== ENCOUNTER 2017-01-30 14:20 | Emergency (ER) | payer OTHER ==
[2017-01-30 14:35] VITALS: PULSE 68
[2017-01-30] MEDS ORDERED: IBUPROFEN 600 MG TAB PO STA (14:48)
[2017-01-30] MEDS ORDERED: HYDROcodone/APAP 10-325MG 1 EACH TAB PO ONE (14:49)
--- NOTE | 2017-01-30 14:58 | ED ---
Extremity Problem HPI - General Chief complaint: Extremity Problem,Nontraumatic Stated complaint: rt leg pain Time Seen by Provider: 01/30/17 14:37 Source: patient, family (Daughter) Mode of arrival: wheelchair Limitations: no limitations - History of Present Illness Initial comments: Patient presents with right knee pain. Patient states she was seen in the ER 1 week ago following a fall, was diagnosed with a left radial fracture and seen by Ortho, placed in sling. Patient states over the past couple days she has had pain in the back of her right knee. Denies any new falls or trauma. Denies numbness, weakness, skin changes, change in temperature, history of blood clots. Patient states she is on Coumadin. Denies hip pain, back pain, ankle pain. MD Complaint: joint paint Onset/Timin -: days(s) Location: right, knee -: Yes arthralgia, No fever, No associated dyspnea, No associated chest pain Radiation: none Severity scale (1-10): 5 Quality: aching Consistency: intermittent Improves with: rest Worsens with: weight bearing, walking - Related Data Home Medications Medication Instructions Recorded Confirmed Ferrous Sulfate [Feosol] 325 mg PO BID 07/14/14 01/30/17 Ranitidine HCl 150 mg PO BID 07/14/14 01/30/17 metFORMIN HCL 1,000 mg PO BID 07/14/14 01/30/17 Atorvastatin [Lipitor] 40 mg PO HS 09/28/15 01/30/17 Budesonide/Formoterol Fumarate 1 puff INHALATION RT-BID 04/02/16 01/30/17 [Symbicort 160-4.5 Mcg Inhaler] Insulin Glargine [Lantus] 40 unit SQ HS 04/02/16 01/30/17 Insulin Glulisine [Apidra Solostar] 8 unit SQ TID-W/MEALS 04/02/16 01/30/17 Loratadine [Claritin] 10 mg PO QAM 04/02/16 01/30/17 Albuterol Inhaler [Ventolin Hfa 2 puff INHALATION RT-Q6H PRN 11/13/16 01/30/17 Inhaler] Ipratropium-Albuterol Nebulize 3 ml INHALATION RT-QID PRN 01/13/17 01/30/17 [Duoneb 0.5 mg-3 mg/3 ml Soln] Levothyroxine Sodium [Synthroid] 50 mcg PO QAM 01/13/17 01/30/17 Warfarin [Coumadin] 5 mg PO SUTUWETHFRSA 01/15/17 01/30/17 Warfarin [Coumadin] 7.5 mg PO MO 01/15/17 01/30/17 Lisinopril [Zestril] 5 mg PO QAM 01/22/17 01/30/17 Previous Rx's Medication Instructions Recorded Metoprolol Tartrate [Lopressor] 50 mg PO BID #60 tab 10/08/15 Furosemide [Lasix] 60 mg PO BID@0900,1600 #90 tab 01/17/17 Nystatin 100,000 Unit/gm Powd 1 applic TOPICAL TID #1 dispenser 01/18/17 [Mycostatin Powder] Allergies Allergy/AdvReac Type Severity Reaction Status Date / Time No Known Allergies Allergy Verified 01/30/17 14:34 Review of Systems ROS Statement: Those systems with pertinent positive or pertinent negative responses have been documented in the HPI. ROS Other: All systems not noted in ROS Statement are negative. Constitutional: Denies: fever, chills, weakness Eyes: Denies: vision change ENT: Denies: congestion Respiratory: Denies: cough, dyspnea, wheezes Cardiovascular: Denies: chest pain, palpitations Endocrine: Denies: fatigue Gastrointestinal: Denies: abdominal pain, nausea, vomiting, diarrhea, constipation Genitourinary: Denies: urgency, dysuria, frequency, hematuria Musculoskeletal: Denies: back pain Skin: Denies: rash, change in color Neurological: Denies: headache, weakness, numbness, paresthesias, confusion Past Medical History Past Medical History: Atrial Fibrillation, Asthma, Heart Failure, COPD, Diabetes Mellitus, GERD/Reflux, Hyperlipidemia, Hypertension, Pneumonia, Sleep Apnea/CPAP/BIPAP, Thyroid Disorder Additional Past Medical History / Comment(s): Severe obstructive sleep apnea- does not tolerate CPAP-wears O2 at 3L/NC at hs, pulmonary htn, morbid obesity, bronchial asthma, paroxysmal atrial fibrillation, IDDM type II, history of cellulitis right lower extremity-healed, hypothyroidism. The patient also has severe CHATO with a previous BiPAP therapy of 22/80 cm of water however she has not been using her BiPAP on a regular basis. She also has aortic valve stenosis with a potential of bicuspid versus tricuspid aortic valve and a previous ejection fraction of 45%, lower extremity edema History of Any Multi-Drug Resistant Organisms: None Reported Past Surgical History: Appendectomy, Cholecystectomy, Heart Catheterization Additional Past Surgical History / Comment(s): 11/03/15 TIMOTHY with cardioversion, cardiac cath, ROSANGELA CATARACTS Past Anesthesia/Blood Transfusion Reactions: No Reported Reaction Past Psychological History: No Psychological Hx Reported Smoking Status: Never smoker Past Alcohol Use History: None Reported Past Drug Use History: None Reported - Past Family History Mother Family Medical History: Cancer Additional Family Medical History / Comment(s): SKIN AND LUNG CANCER "MESOTHELIOMA" Father Family Medical History: CVA/TIA General Exam - General Exam Comments Initial Comments: Sitting up in bed. No acute distress. Does not appear in pain at rest. Calm, pleasant. Conversing normally. Limitations: no limitations General appearance: alert, in no apparent distress Head exam: Present: atraumatic, normocephalic Eye exam: Present: normal appearance ENT exam: Present: normal external ear exam Neck exam: Present: normal inspection. Absent: tenderness Respiratory exam: Present: normal lung sounds bilaterally. Absent: respiratory distress, wheezes, rales Cardiovascular Exam: Present: regular rate, normal rhythm GI/Abdominal exam: Present: soft, other (Obese). Absent: distended, tenderness Extremities exam: Present: full ROM, normal capillary refill, other (No tenderness palpation lumbar spine or hips bilaterally. Pain with passive and active range of motion of the right knee. No swelling or bony tenderness of the right knee. No ligamentous laxity of the right knee. No cysts or masses palpated posterior right knee. Lower extremities bilaterally warm to touch, Refill intact, DP pulses +2 out of 4 bilaterally.). Absent: tenderness, pedal edema, joint swelling, calf tenderness Back exam: Absent: tenderness Neurological exam: Present: alert, oriented X3, other (Right Lower extremity neurovascularly intact.) Psychiatric exam: Present: normal affect, normal mood Skin exam: Present: warm, dry, intact, normal color. Absent: rash, cyanosis, erythema, pallor, abrasion Course Vital Signs 01/30/17 14:32 Temperature 97.9 F Pulse Rate 68 Respiratory 18 Rate Blood Pressure 117/60 O2 Sat by Pulse 95 Oximetry Medical Decision Making - Medical Decision Making Will get x-ray right knee and right hip. Right knee pain may be referred from right hip given recent fall. Do not feel patient has signs of venous or arterial blood clot at this time is on physical exam findings, patient is also currently on Coumadin. Do not feel patient has ligamentous injury. Patient given Motrin and [place] for pain. Findings on x-ray of the knee. Radiologist recommended CT of the hip for further evaluation. CT of pelvis, right hip, right knee shows no acute traumatic injuries or fractures. Shows osteoarthritis. Patient updated with all results. Patient able to stand up from bed without pain while bearing weight on the knee, able to walk around the room with minimal assistance. Patient uses a walker at home. Daughter states they have scheduled physical therapy to come work with the patient at home 3 days a week. Patient has an orthopedic doctor that she has scheduled follow-up with already. Discussed need for physical therapy, if symptoms do not improve recommended MRI of the knee. Patient daughter understand and agree. They feel comfortable going home at this time. All questions answered. At this time I do not feel patient has occult fracture within the hip or knee, do not feel she has tibial plateau fracture as she is able to ambulate without pain in the knee. Disposition Clinical Impression: Right knee pain Disposition: HOME SELF-CARE Condition: Good Instructions: Knee Pain (ED) Referrals: Dontae Quan DO [Primary Care Provider] - 1-2 days
--- NOTE | 2017-01-30 15:25 | XR ---
EXAMINATION TYPE: XR knee complete RT DATE OF EXAM: 01/30/2017 COMPARISON: NONE HISTORY: Pain TECHNIQUE: Four views are submitted. FINDINGS: Diffuse osteopenia with moderate narrowing the joint space and mild hypertrophic changes. No erosive changes. Narrowing and hypertrophic change of the patellofemoral joint with a small amount of fluid i n the suprapatellar bursa. Vascular calcifications noted. Osseous structures are intact. No acute fr acture seen. IMPRESSION: 1. Changes of osteoarthritis.
--- NOTE | 2017-01-30 15:27 | XR ---
EXAMINATION TYPE: XR Hip RT and AP Pelvis DATE OF EXAM: 01/30/2017 COMPARISON: NONE HISTORY: Pain TECHNIQUE: A single AP view of the pelvis is obtained. Two views of the right hip are obtained. FINDINGS: There is hypertrophic and degenerative change of the lower lumbosacral spine. Arthropathy of both hip joints and SI joints are symmetric. No definite acute fracture or dislocation. Heterotopi c ossification on the left is seen. Question a lucency within the acetabulum. IMPRESSION: 1. Recommend CT of the pelvis including the right hip to assess the acetabulum.
--- NOTE | 2017-01-30 16:50 | CT ---
EXAMINATION TYPE: CT knee RT wo con DATE OF EXAM: 01/30/2017 COMPARISON: Right knee x-ray earlier today HISTORY: Fall 8 days ago. Right hip and knee pain. CT DLP: 290.74 mGycm Automated exposure control for dose reduction was used. CT scan of right knee is performed without co ntrast. FINDINGS: No acute fracture or dislocation in right knee is evident. There is mild to moderate tricompartment j oint space loss and spurring is prominent in the patellofemoral compartment and medial tibiofemoral c ompartments redemonstrated. There is fairly moderate size suprapatellar joint effusion noted. Vascula r calcification posteriorly is present. IMPRESSION: NO ACUTE FRACTURE OR DISLOCATION IN THE RIGHT KNEE. MILD TO MODERATE OSTEOARTHRITIC CHANGES REDEMONST RATED.
--- NOTE | 2017-01-30 16:56 | CT ---
EXAMINATION TYPE: CT pelvis wo con DATE OF EXAM: 01/30/2017 COMPARISON: Pelvic and right hip x-ray from earlier today. CT abdomen and pelvis from July 12, 2016 HISTORY: Fall 8 days ago. Right hip and knee pain. CT DLP: 1258.53 mGycm Automated exposure control for dose reduction was used. CT scan of pelvis focusing on right hip is pe rformed. FINDINGS: There is no acute fracture or dislocation evident in the pelvis. There is moderate axial joint space loss in both hips. There is spurring from the greater trochanters identified bilaterally. Pubic symph ysis is maintained. Sacroiliac joints are intact. There is fat-containing ventral wall hernia in the anterior pelvis redemonstrated. There are diverti cula in the visualized sigmoid colon again seen. No concerning pelvic fluid collection or hematoma is present. Vascular calcification bilateral groin regions is noted. IMPRESSION: NO ACUTE FRACTURE OR DISLOCATION IN PELVIS WITH PARTICULAR ATTENTION TO THE RIGHT HIP . NO ACUTE POST TRAUMATIC FINDING EVIDENT.
[2017-01-30 17:25] VITALS: BP 120/56; RESP 19; TEMP 98.3
== END 2017-01-30 17:25 | disposition home or self-care (01) ==
LOC: EC 14:20
DX: M17.11 Unilateral primary osteoarthritis, right knee (principal); E78.5 Hyperlipidemia, unspecified; I11.0 Hypertensive heart disease with heart failure; I50.9 Heart failure, unspecified; E11.9 Type 2 diabetes mellitus without complications; J44.9 Chronic obstructive pulmonary disease, unspecified; E03.9 Hypothyroidism, unspecified; K21.9 Gastro-esophageal reflux disease without esophagitis; E66.01 Morbid (severe) obesity due to excess calories; Z79.01 Long term (current) use of anticoagulants; Z79.4 Long term (current) use of insulin; Z79.51 Long term (current) use of inhaled steroids; Z79.899 Other long term (current) drug therapy; Z68.42 Body mass index [BMI] 45.0-49.9, adult
CPT/HCPCS: 72192; 73502; 99284

== ENCOUNTER 2017-05-03 10:32 | Inpatient (IN) | payer OTHER ==
[2017-05-03] MEDS ORDERED: ONDANSETRON 4 MG/2 ML VIAL IVP STA (11:35)
[2017-05-03] MEDS ORDERED: SODIUM CHLORIDE 0.9% 500 ML IV STA (11:35)
[2017-05-03] MEDS ORDERED: SODIUM CHLORIDE 0.9% 1,000 ML IV STA (11:35)
--- NOTE | 2017-05-03 11:52 | ED ---
Nausea/Vomiting/Diarrhea HPI - General Source: patient, family, RN notes reviewed, old records reviewed Mode of arrival: wheelchair Limitations: physical limitation <Annabella Christopher - Last Filed: 05/03/17 14:14> <Sal Del Angel - Last Filed: 05/03/17 14:29> - General Chief complaint: Nausea/Vomiting/Diarrhea Stated complaint: Hernia Time Seen by Provider: 05/03/17 11:16 - History of Present Illness Initial comments: 66-year-old female emergency department today chief complaint of nausea and vomiting and diarrhea for proximally 1 day. Patient was brought in by her daughter for further evaluation, concerned due to her multiple comorbidities. Patient reports that she has no abdominal pain. She thinks that her symptoms are related to her diagnosis of hernia. She states that his is a nonincarcerated hernia, and she is following up with Dr. Rivera. Patient states that she had no fever or chills. Reports occasional shortness of breath. She denies any specific chest pain. Her shortness of breath this with ambulation. She is on multiple cardiac medication and diuresis medications due to CHF. (Annabella Christopher) - Related Data Home Medications Medication Instructions Recorded Confirmed Ferrous Sulfate [Feosol] 325 mg PO BID 07/14/14 05/03/17 Ranitidine HCl 150 mg PO BID 07/14/14 05/03/17 metFORMIN HCL 1,000 mg PO BID 07/14/14 05/03/17 Atorvastatin [Lipitor] 40 mg PO HS 09/28/15 05/03/17 Budesonide/Formoterol Fumarate 1 puff INHALATION RT-BID 04/02/16 05/03/17 [Symbicort 160-4.5 Mcg Inhaler] Insulin Glulisine [Apidra Solostar] 8 unit SQ TID-W/MEALS 04/02/16 05/03/17 Albuterol Inhaler [Ventolin Hfa 2 puff INHALATION RT-Q6H PRN 11/13/16 05/03/17 Inhaler] Ipratropium-Albuterol Nebulize 3 ml INHALATION RT-QID PRN 01/13/17 05/03/17 [Duoneb 0.5 mg-3 mg/3 ml Soln] Warfarin [Coumadin] 2.5 mg PO WE 01/15/17 05/03/17 Warfarin [Coumadin] 5 mg PO SUMOTUTHFRSA 01/15/17 05/03/17 Amiodarone [Cordarone] 200 mg PO DAILY 02/16/17 05/03/17 Furosemide [Lasix] 40 mg PO BID 02/16/17 05/03/17 Levothyroxine Sodium [Synthroid] 100 mcg PO DAILY 02/16/17 05/03/17 Insulin Glargine,Hum.rec.anlog 40 unit SQ HS 05/03/17 05/03/17 [Basaglar Kwikpen U-100] Loratadine [Claritin] 10 mg PO DAILY 05/03/17 05/03/17 Metolazone [Zaroxolyn] 2.5 mg PO DAILY 05/03/17 05/03/17 Previous Rx's Medication Instructions Recorded Metoprolol Tartrate [Lopressor] 50 mg PO BID #60 tab 10/08/15 Allergies Allergy/AdvReac Type Severity Reaction Status Date / Time No Known Allergies Allergy Verified 05/03/17 11:39 Review of Systems ROS Other: All systems not noted in ROS Statement are negative. <Annabella Christopher - Last Filed: 05/03/17 14:14> ROS Other: All systems not noted in ROS Statement are negative. <Sal Del Angel - Last Filed: 05/03/17 14:29> ROS Statement: Those systems with pertinent positive or pertinent negative responses have been documented in the HPI. Past Medical History Past Medical History: Atrial Fibrillation, Asthma, Heart Failure, COPD, Diabetes Mellitus, GERD/Reflux, Hyperlipidemia, Hypertension, Pneumonia, Sleep Apnea/CPAP/BIPAP, Thyroid Disorder Additional Past Medical History / Comment(s): Severe obstructive sleep apnea- does not tolerate CPAP-wears O2 at 3L/NC at hs, pulmonary htn, morbid obesity, bronchial asthma, paroxysmal atrial fibrillation, IDDM type II, history of cellulitis right lower extremity-healed, hypothyroidism. The patient also has severe CHATO with a previous BiPAP therapy of 22/80 cm of water however she has not been using her BiPAP on a regular basis. She also has aortic valve stenosis with a potential of bicuspid versus tricuspid aortic valve and a previous ejection fraction of 45%, lower extremity edema . History of Any Multi-Drug Resistant Organisms: None Reported Past Surgical History: Appendectomy, Cholecystectomy, Heart Catheterization Additional Past Surgical History / Comment(s): 11/03/15 TIMOTHY with cardioversion, cardiac cath, ROSANGELA CATARACTS Past Anesthesia/Blood Transfusion Reactions: No Reported Reaction Past Psychological History: No Psychological Hx Reported Smoking Status: Never smoker Past Alcohol Use History: None Reported Past Drug Use History: None Reported - Past Family History Mother Family Medical History: Cancer Additional Family Medical History / Comment(s): SKIN AND LUNG CANCER "MESOTHELIOMA" Father Family Medical History: CVA/TIA <Annabella Christopher - Last Filed: 05/03/17 14:14> General Exam Limitations: physical limitation General appearance: alert, in no apparent distress Head exam: Present: atraumatic, normocephalic, normal inspection Eye exam: Present: normal appearance, PERRL, EOMI. Absent: scleral icterus, conjunctival injection, periorbital swelling ENT exam: Present: mucous membranes dry, mucous membranes moist. Absent: normal exam Neck exam: Present: normal inspection. Absent: tenderness, meningismus, lymphadenopathy Respiratory exam: Present: decreased breath sounds (Diminished lung sounds bilaterally.). Absent: respiratory distress, wheezes, rales, rhonchi, stridor Cardiovascular Exam: Present: regular rate, normal rhythm, normal heart sounds. Absent: systolic murmur, diastolic murmur, rubs, gallop, clicks GI/Abdominal exam: Present: soft, hyperactive bowel sounds (Patient is hyperactive bowel sounds. No abdominal tenderness.). Absent: distended, tenderness, guarding, rebound, rigid Extremities exam: Present: normal inspection, full ROM, normal capillary refill. Absent: tenderness, pedal edema, joint swelling, calf tenderness Back exam: Present: normal inspection Neurological exam: Present: alert, oriented X3, CN II-XII intact Psychiatric exam: Present: normal affect, normal mood Skin exam: Present: warm, dry, intact, normal color. Absent: rash <Annabella Christopher - Last Filed: 05/03/17 14:14> <Sal Del Angel - Last Filed: 05/03/17 14:29> - General Exam Comments Initial Comments: This is a 66-year-old female. Patient appears to be chronically ill. (Annabella Christopher) Vital Signs 05/03/17 05/03/17 05/03/17 11:14 12:30 14:22 Temperature 97.7 F 98.2 F Pulse Rate 82 76 77 Respiratory 18 18 18 Rate Blood Pressure 122/58 111/50 95/49 O2 Sat by Pulse 96 94 L 93 L Oximetry Medical Decision Making - Lab Data Result diagrams: 05/03/17 11:53 05/03/17 11:53 - Radiology Data Radiology results: report reviewed <AshwinJessicaAnnabella - Last Filed: 05/03/17 14:14> - Lab Data Result diagrams: 05/03/17 11:53 05/03/17 11:53 <Sal Del Angel - Last Filed: 05/03/17 14:29> - Medical Decision Making 66-year-old female multiple comorbidities presents today with 1 day of diarrhea and vomiting. She reports she stepped able to hold anything down. She states that she is on multiple medications due to CHF, and water pills per she plans to follow-up with a heating fixture tender. Patient has no abdominal tenderness at this time. No active vomiting. She did not have any episodes of diarrhea while in the emergency department. At this time patient's lab work was reviewed and shows a significant elevation of her BUN/creatinine compared to previous labs. She also complained of some intermittent shortness of breath. Patient's troponin is negative. BNP is mildly elevated at 1200. I did give the patient half a liter bolus and started the patient and 100 mils per hour for hydration, but concerned for fluid overload. Patient will be admitted for further evaluation and rigors acute kidney injury. Stool cultures and stool studies will be completed patient has a bowel movement.. (Annabella Christopher) The patient was seen and examined. All diagnostics were reviewed. The case is discussed with internal medicine and they're agreeable with admission. The case is discussed with the PA and agree with the findings as documented. (Sal Del Angel) - Lab Data Lab Results 05/03/17 05/03/17 05/03/17 Range/Units 11:53 11:53 11:53 WBC 9.4 (3.8-10.6) k/uL RBC 4.53 (3.80-5.40) m/uL Hgb 12.8 (11.4-16.0) gm/dL Hct 40.4 (34.0-46.0) % MCV 89.0 (80.0-100.0) fL MCH 28.2 (25.0-35.0) pg MCHC 31.7 (31.0-37.0) g/dL RDW 14.4 (11.5-15.5) % Plt Count 237 (150-450) k/uL Neutrophils % 93 % Lymphocytes % 3 % Monocytes % 3 % Eosinophils % 1 % Basophils % 0 % Neutrophils # 8.7 H (1.3-7.7) k/uL Lymphocytes # 0.2 L (1.0-4.8) k/uL Monocytes # 0.2 (0-1.0) k/uL Eosinophils # 0.1 (0-0.7) k/uL Basophils # 0.0 (0-0.2) k/uL PT (9.0-12.0) sec INR (<1.2) APTT (22.0-30.0) sec Sodium 147 H (137-145) mmol/L Potassium 4.1 (3.5-5.1) mmol/L Chloride 101 (98-107) mmol/L Carbon Dioxide 34 H (22-30) mmol/L Anion Gap 12 mmol/L BUN 82 H* (7-17) mg/dL Creatinine 1.90 H (0.52-1.04) mg/dL Est GFR (MDRD) Af Amer 32 (>60 ml/min/1.73 sqM) Est GFR (MDRD) Non-Af 27 (>60 ml/min/1.73 sqM) Glucose 101 H (74-99) mg/dL Calcium 8.5 (8.4-10.2) mg/dL Total Bilirubin 0.5 (0.2-1.3) mg/dL AST 27 (14-36) U/L ALT 46 (9-52) U/L Alkaline Phosphatase 129 H (38-126) U/L Troponin I 0.013 (0.000-0.034) ng/mL NT-Pro-B Natriuret Pep pg/mL Total Protein 6.6 (6.3-8.2) g/dL Albumin 3.7 (3.5-5.0) g/dL Amylase 33 (30-110) U/L Lipase 70 (23-300) U/L Urine Color Urine Appearance (Clear) Urine pH (5.0-8.0) Ur Specific [place] (1.001-1.035) Urine Protein (Negative) Urine Glucose (UA) (Negative) Urine Ketones (Negative) Urine Blood (Negative) Urine Nitrite (Negative) Urine Bilirubin (Negative) Urine Urobilinogen (<2.0) mg/dL Ur Leukocyte Esterase (Negative) 05/03/17 05/03/17 05/03/17 Range/Units 11:53 11:53 12:07 WBC (3.8-10.6) k/uL RBC (3.80-5.40) m/uL Hgb (11.4-16.0) gm/dL Hct (34.0-46.0) % MCV (80.0-100.0) fL MCH (25.0-35.0) pg MCHC (31.0-37.0) g/dL RDW (11.5-15.5) % Plt Count (150-450) k/uL Neutrophils % % Lymphocytes % % Monocytes % % Eosinophils % % Basophils % % Neutrophils # (1.3-7.7) k/uL Lymphocytes # (1.0-4.8) k/uL Monocytes # (0-1.0) k/uL Eosinophils # (0-0.7) k/uL Basophils # (0-0.2) k/uL PT 22.4 H (9.0-12.0) sec INR 2.5 H (<1.2) APTT 32.8 H (22.0-30.0) sec Sodium (137-145) mmol/L Potassium (3.5-5.1) mmol/L Chloride (98-107) mmol/L Carbon Dioxide (22-30) mmol/L Anion Gap mmol/L BUN (7-17) mg/dL Creatinine (0.52-1.04) mg/dL Est GFR (MDRD) Af Amer (>60 ml/min/1.73 sqM) Est GFR (MDRD) Non-Af (>60 ml/min/1.73 sqM) Glucose (74-99) mg/dL Calcium (8.4-10.2) mg/dL Total Bilirubin (0.2-1.3) mg/dL AST (14-36) U/L ALT (9-52) U/L Alkaline Phosphatase (38-126) U/L Troponin I (0.000-0.034) ng/mL NT-Pro-B Natriuret Pep 1210 pg/mL Total Protein (6.3-8.2) g/dL Albumin (3.5-5.0) g/dL Amylase (30-110) U/L Lipase (23-300) U/L Urine Color Light Yellow Urine Appearance Clear (Clear) Urine pH 5.5 (5.0-8.0) Ur Specific [place] 1.011 (1.001-1.035) Urine Protein Negative (Negative) Urine Glucose (UA) Negative (Negative) Urine Ketones Negative (Negative) Urine Blood Negative (Negative) Urine Nitrite Negative (Negative) Urine Bilirubin Negative (Negative) Urine Urobilinogen <2.0 (<2.0) mg/dL Ur Leukocyte Esterase Negative (Negative) - EKG Data EKG Comments: EKG shows normal sinus rhythm, left ventricular hypertrophy with QRS widening. Nonspecific ST and T-wave abnormality noted. Ventricularly of [address] interval 162 ms. QRS duration 122 ms. QT QTc is 426/480 ms. No evidence of ST elevation. (Annabella Christopher) - Radiology Data KUB non obstructive bowel gas pattern. Chest x-ray shows evidence of cardiomegaly with mild perivascular congestion may be on the basis of for congestive heart failure (Annabella Christopher) Disposition Time of Disposition: 14:19 <Annabella Christopher - Last Filed: 05/03/17 14:14> <Sal Del Angel - Last Filed: 05/03/17 14:29> Clinical Impression: Acute kidney injury, Heart failure Disposition: ADMITTED IP TO THIS HOSP Condition: Stable Referrals: Dontae Quan DO [Primary Care Provider] - 1-2 days
[2017-05-03 12:13] LABS: Basophils % (A) 0 %; Eosinophils # (A) 0.1 k/uL (0-0.7); Eosinophils % (A) 1 %; HCT 40.4 % (34.0-46.0); HGB 12.8 gm/dL (11.4-16.0); Lymphocytes # (A) 0.2 k/uL (1.0-4.8); Lymphocytes % (A) 3 %; MCH 28.2 pg (25.0-35.0); MCHC 31.7 g/dL (31.0-37.0); Mean Platelet Volume 7.3; Monocytes # (A) 0.2 k/uL (0-1.0); Monocytes % (A) 3 %; Neutrophils # (A) 8.7 k/uL (1.3-7.7); Neutrophils % (A) 93 %; Platelet Count 237 k/uL (150-450); RBC 4.53 m/uL (3.80-5.40); RDW 14.4 % (11.5-15.5); WBC 9.4 k/uL (3.8-10.6)
[2017-05-03 12:14] LABS: Appearance,Urine Clear (Clear); Bilirubin,Urine Negative (Negative); Blood,Urine Negative (Negative); Color,Urine Light Yellow; Glucose,Urine (UA) Negative (Negative); Ketones,Urine Negative (Negative); Leukocyte Esterase,Urine Negative (Negative); Nitrite,Urine Negative (Negative); PH, Urine 5.5 (5.0-8.0); Protein,Urine Negative (Negative); Specific Gravity,Urine 1.011 (1.001-1.035); Urobilinogen,Urine <2.0 mg/dL (<2.0)
--- NOTE | 2017-05-03 12:23 | XR ---
EXAMINATION TYPE: XR chest 2V DATE OF EXAM: 05/03/2017 COMPARISON: 01/22/2017 HISTORY: Nausea, vomiting, diarrhea and chest pain TECHNIQUE: Frontal and lateral views of the chest are obtained. FINDINGS: The heart is enlarged. There is mild pulmonary vascular congestion. No pleural effusions o r pneumothorax. Mild multilevel degenerative changes of the thoracic spine are present. IMPRESSION: Cardiomegaly and mild pulmonary vascular congestion may be on the basis of congestive he art failure.
[2017-05-03 12:24] LABS: Albumin 3.7 g/dL (3.5-5.0); Calcium 8.5 mg/dL (8.4-10.2); Potassium 4.1 mmol/L (3.5-5.1); Total Bilirubin 0.5 mg/dL (0.2-1.3); Total Protein 6.6 g/dL (6.3-8.2)
--- NOTE | 2017-05-03 12:29 | XR ---
EXAMINATION TYPE: XR KUB DATE OF EXAM: 05/03/2017 12:15 PM CLINICAL HISTORY: Nausea, vomiting, and diarrhea. TECHNIQUE: Single upright image of the abdomen is obtained. COMPARISON: 02/20/2017. FINDINGS: Scattered gas is seen in non-distended small bowel loops. Gas and fecal material is seen in non-distended colon. There is no visceromegaly, pneumoperitoneum, or abnormal calcification apprecia daniela. The lung bases are clear and the osseous structures are intact. Moderate multilevel degenerative changes of the thoracic spine are seen. IMPRESSION: Nonobstructive bowel gas pattern.
[2017-05-03 13:32] LABS: INR 2.5 (<1.2); Partial Thromboplastin Time 32.8 sec (22.0-30.0); Prothrombin Time 22.4 sec (9.0-12.0)
[2017-05-03] MEDS ORDERED: NALOXONE 0.4 MG/ML 1 ML VIAL IV PRN (14:42)
[2017-05-03] MEDS ORDERED: oxyCODONE-APAP 5-325MG 1 EACH TAB PO PRN (14:42)
[2017-05-03] MEDS ORDERED: ONDANSETRON 4 MG/2 ML VIAL IVP PRN (14:42)
[2017-05-03] MEDS ORDERED: IBUPROFEN 400 MG TAB PO PRN (14:42)
[2017-05-03] MEDS ORDERED: LORazepam 2 MG/ML INJ IV PRN (14:42)
[2017-05-03] MEDS ORDERED: Acetaminophen-Codeine 300-30mg TAB PO PRN (14:42)
[2017-05-03] MEDS ORDERED: ALBUTEROL INHALER 60 PUFF/8 GM INHALER INHALATION PRN (14:44)
[2017-05-03] MEDS ORDERED: IPRATROPIUM-ALBUTEROL 3 ML NEB INHALATION PRN (14:44)
[2017-05-03] MEDS ORDERED: FUROSEMIDE 40 MG TAB PO SCH (16:00)
[2017-05-03 16:36] VITALS: BMI 46.6
[2017-05-03 17:17] LABS: Glucose,Whole Blood 114 mg/dL (75-99)
[2017-05-03] MEDS: WARFARIN 5 MG TAB PO SCH (18:12)
[2017-05-03 18:14] LABS: Troponin I 0.014 ng/mL (0.000-0.034)
[2017-05-03 18:19] LABS: Creatine Kinase MB 2.6 ng/mL (0.0-2.4)
[2017-05-03 21:02] LABS: Glucose,Whole Blood 174 mg/dL (75-99)
[2017-05-03] MEDS: SYMBICORT 160-4.5 MCG INHALER INHALATION SCH (21:34)
[2017-05-03] MEDS: INSULIN DETEMIR 100 UNIT/ML 10 ML VIAL SQ SCH (21:46)
[2017-05-03] MEDS: metFORMIN 500 MG TAB PO SCH (22:29)
[2017-05-03] MEDS: FAMOTIDINE 20 MG TAB PO SCH (22:29)
[2017-05-03] MEDS: FERROUS SULFATE 325 MG TAB PO SCH (22:29)
[2017-05-03] MEDS: METOPROLOL TARTRATE 50 MG TAB PO SCH (22:29)
--- NOTE | 2017-05-03 22:48 | HP ---
HISTORY AND PHYSICAL DATE OF ADMISSION:: 05/03/2017. PRESENTING COMPLAINT: Nausea, vomiting, diarrhea. HISTORY OF PRESENTING COMPLAINT: This is a very pleasant 66-year-old patient whose chronic stable medical conditions include congestive heart failure, atrial fibrillation, hypothyroid, obstructive sleep apnea, hyperlipidemia, diabetes, secondary pulmonary hypertension. The patient has a walker to get about. The patient had some leftover soup and started having nausea, vomiting and diarrhea, some abdominal discomfort. Denies any fever. [place] really weak and tired. Came into the ER, was found to be in acute renal failure, admitted for the same. The patient's last diarrhea with some time earlier today and last time she vomited was earlier this morning. REVIEW OF SYSTEMS: CONSTITUTIONAL: Tired. HEENT: None. RESPIRATORY: None. CARDIOVASCULAR: None. GASTROINTESTINAL: As above. Patient does occasionally get diarrhea. GENITOURINARY: None. MUSCULOSKELETAL: Pain in joints. DERMATOLOGICAL: None. HEMATOLOGIC: None. LYMPHATIC: None. PSYCHIATRY: None. NEUROLOGICAL: None. PAST MEDICAL HISTORY: Paroxysmal atrial fibrillation, hypothyroid, obstructive sleep apnea, morbid obesity, hyperlipidemia, diabetes type 2, chronic hypoxic respiratory failure on 3L oxygen at home, pulmonary hypertension. PAST SURGICAL HISTORY: Appendectomy, cholecystectomy, cardiac catheterization, TIMOTHY with cardioversion, bilateral cataract surgery. The patient does not use her BiPAP on a regular basis. SOCIAL HISTORY: The patient lives at [facility] in [place], uses a walker when she is outside. Daughter takes her to her appointment. Patient does cook and manages her own medication. No smoking. No alcohol. FAMILY HISTORY: Lung cancer and mesothelioma. HOME MEDICATIONS: 1. Zaroxolyn 2.5 p.o. daily. 2. Apidra 8 units subcu t.i.d. with meals. 3. Claritin 10 mg p.o. daily. 4. Insulin Lantus. 5. Basaglar 40 units subcu q.h.s. 6. Metformin 1000 mg p.o. b.i.d. 7. Coumadin 2.5 on Wednesdays and 5 mg on other days. 8. Zantac 150 mg p.o. b.i.d. 9. Lopressor 50 mg b.i.d. 10.Synthroid 100 mcg p.o. daily. 11.DuoNeb q.i.d. p.r.n. 12.Lasix 40 mg p.o. b.i.d. 13.Iron 325 p.o. b.i.d. 14.Symbicort 160/4.5, 1 puff b.i.d. 15.Lipitor 40 mg q.h.s. 16.Cordarone 200 mg p.o. daily. 17.Ventolin HFA 2 puffs every 6 hours p.r.n. ALLERGIES: None. EXAMINATION: VITAL SIGNS: On presentation, temperature 97.7, pulse 82, respirations 18, blood pressure 122/58, pulse ox 96% on room air. GENERAL APPEARANCE: Well-built, BMI of 46.7, sitting up on a chair, tired-appearing. EYES: Pupils equal. Conjunctivae normal. HEENT: External nose and ears normal. Oral cavity: Dry mucous membranes. NECK: Short, thick. JVD unable to assess. Mass not palpable. RESPIRATORY: Effort slightly increased. LUNGS: Diminished breath sounds. CARDIOVASCULAR: First and second heart sounds normal. No edema. ABDOMEN: Distended, soft. Liver and spleen not palpable. Bowel sounds are present. LYMPHATIC: No lymph nodes palpable in neck or axillae. PSYCHIATRY: Alert and oriented x3. Mood and affect normal. NEUROLOGICAL: Pupils equal. Cranial nerves grossly intact. Power and sensation grossly intact. INVESTIGATIONS: White count 9.4, hemoglobin 12.8, INR 2.5. Potassium 4.1, BUN 82, creatinine 1.90. The patient's BUN and creatinine were 14/0.90 back on 02/21/2017. ASSESSMENT: 1. Acute renal failure, likely prerenal, in a patient who takes diuretics and from dehydration from acute gastroenteritis. 2. Acute gastroenteritis, likely viral, typically self-limiting. 3. Chronic cor pulmonale and secondary pulmonary hypertension. 4. Chronic congestive heart failure from diastolic dysfunction, ejection fraction 60%. 5. Paroxysmal atrial fibrillation chronically on Coumadin. 6. Hypothyroidism. 7. Obstructive sleep apnea, does not use CPAP machine. 8. Morbid obesity, BMI of 46. 9. Hyperlipidemia. 10.Diabetes mellitus type 2, chronically on hypoglycemics and insulin. 11.Chronic hypoxic respiratory failure on 3L oxygen at home from chronic obstructive pulmonary disease. 12.Secondary pulmonary hypertension, moderate to severe, secondary to chronic obstructive pulmonary disease. 13.Coumadin monitoring. PLAN: At this point, patient's diuretics have been held due to the patient's CHF. Will gently hydrate the patient. The patient's diet was scaled back. Accu-Cheks will be done. Care was discussed with the patient. Questions were answered. KEV / JUMAN: [id number] /
[2017-05-03] MEDS: ATORVASTATIN 40 MG TAB PO SCH (23:46)
[2017-05-03] MEDS: ACETAMINOPHEN TAB 325 MG TAB PO PRN (23:51)
[2017-05-03] MEDS: LACTATED RINGERS 1,000 ML IV SCH (23:52)
[2017-05-04 00:28] LABS: Troponin I 0.016 ng/mL (0.000-0.034)
[2017-05-04 00:31] LABS: Creatine Kinase MB 3.1 ng/mL (0.0-2.4)
[2017-05-04] MEDS: LEVOTHYROXINE 100 MCG TAB PO SCH (06:20)
[2017-05-04] MEDS: SYMBICORT 160-4.5 MCG INHALER INHALATION SCH ×2 (07:25→19:56)
[2017-05-04] MEDS: INSULIN ASPART 100 UNIT/ML 1 ML 10 ML VIAL SQ SCH ×3 (07:31→17:24)
[2017-05-04] MEDS: AMIODARONE 200 MG TAB PO SCH (07:32)
[2017-05-04] MEDS: FAMOTIDINE 20 MG TAB PO SCH (07:32)
[2017-05-04] MEDS: LORATADINE 10 MG TAB PO SCH (07:32)
[2017-05-04] MEDS: metFORMIN 500 MG TAB PO SCH ×2 (07:32→21:19)
[2017-05-04] MEDS: METOPROLOL TARTRATE 50 MG TAB PO SCH ×2 (07:32→21:20)
[2017-05-04] MEDS: FERROUS SULFATE 325 MG TAB PO SCH ×2 (07:32→21:19)
[2017-05-04] MEDS: LACTATED RINGERS 1,000 ML IV SCH ×2 (07:33→17:25)
[2017-05-04 07:56] LABS: Glucose,Whole Blood 158 mg/dL (75-99)
[2017-05-04 08:36] LABS: Calcium 8.4 mg/dL (8.4-10.2)
[2017-05-04] MEDS ORDERED: METOLAZONE 2.5 MG TAB PO SCH (09:00)
[2017-05-04] MEDS ORDERED: PANTOPRAZOLE 40 MG/10 ML VIAL IV SCH (09:00)
[2017-05-04 11:32] LABS: Glucose,Whole Blood 152 mg/dL (75-99)
--- NOTE | 2017-05-04 15:43 | PN ---
PROGRESS NOTE DATE OF SERVICE: 05/04/17. ATTENDING NOTE: Patient seen and examined by me. I discussed with nurse practitioner, Ms. Pope. The patient admitted with acute renal failure, nausea, vomiting and diarrhea. Actually feeling better, tolerating a soft diet, had a little bit more diarrhea that got better though this is a chronic problem she states. PHYSICAL EXAMINATION: Temperature 97.6, pulse 69, respiratory 18, blood pressure 125/60, pulse ox 95% 2 L. On examination: LUNGS: Slightly decreased breath sounds. CARDIOVASCULAR: First and second sounds normal. INVESTIGATIONS: BUN 79, creatinine 1.72. ASSESSMENT: 1. Acute renal failure likely prerenal from patient taking diuretics and from gastroenteritis, slow to respond. 2. Acute gastroenteritis, likely viral. PLAN: I spoke to the patient. We will keep the patient on IV fluids at 75 mL an hour. Repeat electrolytes in the morning. The patient is on a soft bland diet. Will follow. KEV / FARTUN: [id number] /
--- NOTE | 2017-05-04 16:32 | P.PN ---
Progress Note - Text Progress Note Date: 05/04/17 DATE OF SERVICE: 05/04/2017 PRESENTING COMPLAINT: Nausea vomiting diarrhea HISTORY OF PRESENT ILLNESS: 66-year-old female who presented to the emergency department after eating some leftover soup at home and began having nausea vomiting and diarrhea and abdominal discomfort. On admission patient found to be in acute renal failure admitted for the same. INTERVAL HISTORY: 05/04/2017: Patient's lying in bed, appears comfortable. Tolerating her diet, ate 75% of her breakfast. BUN and creatinine remain elevated. IV fluids continue. Ambulatory with assistance last BM this morning. REVIEW OF SYSTEMS: Done for constitutional ,cardiovascular, GI, pulmonary with relevant findings as above. CURRENT MEDICATIONS Acetaminophen, DuoNeb, amiodarone, atorvastatin, Symbicort, Pepcid, ibuprofen, aspart insulin 8 units, Levemir 40 units, Synthroid 100 g daily, rated dined 10 mg by mouth daily, Ativan 0.5 mg IV every 6 hours when necessary for anxiety , Glucophage thousand grams by mouth twice a day, Lopressor 51 by mouth twice a day, Zofran, Percocet, Coumadin 5 mg by mouth Sunday, Coumadin 2.5 mg Wednesdays. PHYSICAL EXAM VITAL SIGNS: Temperature 97.6, pulse 69, respiratory rate 18, blood pressure 125/60, oxygen saturation 95% on 2 L GENERAL APPEARANCE: Lying in bed, not in distress. EYES: Pupils equal. Conjunctiva normal. NECK: JVD not raised. Mass not palpable. RESPIRATORY: Respiratory effort slightly increased. Lungs diminished to auscultation. CARDIOVASCULAR: First and second sounds normal. No edema. ABDOMEN: Soft. Liver and spleen not palpable. No tenderness. No mass palpable. PSYCHIATRY: Alert and oriented x3. Mood and affect normal. INVESTIGATIONS: LABS: BUN 79, creatinine 1.72, Accu-Cheks noted. ASSESSMENT: -Acute renal failure, likely prerenal the patient takes diuretics and from dehydration from acute gastroenteritis, slow to respond -Acute gastroenteritis likely viral, typically self-limiting. -Chronic cor pulmonale and secondary pulmonary hypertension. -Chronic congestive heart failure from diastolic dysfunction, ejection fraction 60%. -Paroxysmal atrial fibrillation, chronically on Coumadin. -Hypothyroidism. -Obstructive sleep apnea, does not use a CPAP machine. -Morbid obesity BMI of 46. -Hyperlipidemia. -Diabetes mellitus type 2 chronically on hypoglycemics and insulin. -Chronic hypoxic respiratory failure on 3 L of oxygen at home from chronic obstructive pulmonary disease. 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 -Coumadin monitoring. PLAN: Continue IV fluids for gentle hydration. Continue to hold diuretics, plan of care discussed with the patient at the bedside she is in agreement. We'll follow closely. CATTLE FEEDER statement: Patient was seen and examined by nurse practitioner Jaimie Pope and all elements of the case discussed with attending Dr. Mancuso
[2017-05-04 17:04] LABS: Glucose,Whole Blood 125 mg/dL (75-99)
[2017-05-04] MEDS: WARFARIN 5 MG TAB PO SCH (17:25)
[2017-05-04 20:43] LABS: Glucose,Whole Blood 117 mg/dL (75-99)
[2017-05-04] MEDS: ATORVASTATIN 40 MG TAB PO SCH (21:19)
[2017-05-04] MEDS: INSULIN DETEMIR 100 UNIT/ML 10 ML VIAL SQ SCH (21:20)
[2017-05-05] MEDS: LACTATED RINGERS 1,000 ML IV SCH ×2 (06:36→17:01)
[2017-05-05] MEDS: LEVOTHYROXINE 100 MCG TAB PO SCH (06:36)
[2017-05-05 07:38] LABS: Glucose,Whole Blood 116 mg/dL (75-99)
[2017-05-05] MEDS: SYMBICORT 160-4.5 MCG INHALER INHALATION SCH ×2 (07:54→20:23)
[2017-05-05] MEDS: INSULIN ASPART 100 UNIT/ML 1 ML 10 ML VIAL SQ SCH ×3 (07:55→17:53)
[2017-05-05] MEDS: ACETAMINOPHEN TAB 325 MG TAB PO PRN (07:55)
[2017-05-05] MEDS: metFORMIN 500 MG TAB PO SCH ×2 (07:57→21:16)
[2017-05-05] MEDS: LORATADINE 10 MG TAB PO SCH (07:57)
[2017-05-05] MEDS: METOPROLOL TARTRATE 50 MG TAB PO SCH ×3 (07:57→21:51)
[2017-05-05] MEDS: FAMOTIDINE 20 MG TAB PO SCH (07:57)
[2017-05-05] MEDS: FERROUS SULFATE 325 MG TAB PO SCH ×2 (07:57→21:48)
[2017-05-05] MEDS: AMIODARONE 200 MG TAB PO SCH (07:58)
[2017-05-05 08:39] LABS: Calcium 8.5 mg/dL (8.4-10.2); Potassium 4.1 mmol/L (3.5-5.1)
[2017-05-05 11:39] LABS: Glucose,Whole Blood 115 mg/dL (75-99)
[2017-05-05] MEDS: WARFARIN 5 MG TAB PO SCH (17:02)
[2017-05-05 17:04] LABS: Glucose,Whole Blood 84 mg/dL (75-99)
--- NOTE | 2017-05-05 17:37 | P.PN ---
Progress Note - Text Progress Note Date: 05/05/17 DATE OF SERVICE: 05/05/2017 PRESENTING COMPLAINT: Nausea vomiting diarrhea HISTORY OF PRESENT ILLNESS: 66-year-old female who presented to the emergency department after eating some leftover soup at home and began having nausea vomiting and diarrhea and abdominal discomfort. On admission patient found to be in acute renal failure admitted for the same. INTERVAL HISTORY: 05/05/2017: Patient sitting on the edge of the bed appears comfortable. Tolerating her diet ate 75% of her breakfast. BUN and creatinine remain elevated we'll continue IV fluids. Ambulatory with assistance moved her bowels yesterday. 05/04/2017: Patient's lying in bed, appears comfortable. Tolerating her diet, ate 75% of her breakfast. BUN and creatinine remain elevated. IV fluids continue. Ambulatory with assistance last BM this morning. REVIEW OF SYSTEMS: Done for constitutional ,cardiovascular, GI, pulmonary with relevant findings as above. CURRENT MEDICATIONS Acetaminophen, DuoNeb, amiodarone, atorvastatin, Symbicort, Pepcid, ibuprofen, aspart insulin 8 units, Levemir 40 units, Synthroid 100 g daily, rated dined 10 mg by mouth daily, Ativan 0.5 mg IV every 6 hours when necessary for anxiety , Glucophage thousand grams by mouth twice a day, Lopressor 51 by mouth twice a day, Zofran, Percocet, Coumadin 5 mg by mouth Sunday, Coumadin 2.5 mg Wednesdays. PHYSICAL EXAM VITAL SIGNS: Temperature 97.0, pulse 59, respiratory rate 18, blood pressure 140/83, oxygen saturation 96% on 2 L. GENERAL APPEARANCE: Lying in bed, not in distress. HEENT: Pupils equal. Conjunctiva normal. JVD not raised. Mass not palpable RESPIRATORY: Respiratory effort slightly increased. Lungs diminished to auscultation. CARDIOVASCULAR: First and second sounds normal. No edema. ABDOMEN: Soft. Liver and spleen not palpable. No tenderness. No mass palpable. PSYCHIATRY: Alert and oriented x3. Mood and affect normal. INVESTIGATIONS: LABS: BUN 65, creatinine 1.51, Accu-Cheks noted. ASSESSMENT: -Acute renal failure, likely prerenal the patient takes diuretics and from dehydration from acute gastroenteritis, slow to respond -Acute gastroenteritis likely viral, typically self-limiting, improving -Chronic cor pulmonale and secondary pulmonary hypertension. -Chronic congestive heart failure from diastolic dysfunction, ejection fraction 60%. -Paroxysmal atrial fibrillation, chronically on Coumadin. -Hypothyroidism. -Obstructive sleep apnea, does not use a CPAP machine. -Morbid obesity BMI of 46. -Hyperlipidemia. -Diabetes mellitus type 2 chronically on hypoglycemics and insulin. -Chronic hypoxic respiratory failure on 3 L of oxygen at home from chronic obstructive pulmonary disease. 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 -Coumadin monitoring. PLAN: Continue IV fluids for gentle hydration. Continue to hold diuretics, monitor daily labs for kidney function. plan of care discussed with the patient at the bedside she is in agreement. We'll follow closely. CHEESEMAKER HELPER statement: Patient was seen and examined by nurse practitioner Jaimie Pope and all elements of the case discussed with attending Dr. Mancuso
--- NOTE | 2017-05-05 17:50 | PN ---
PROGRESS NOTE DATE OF SERVICE: 05/05/17 ATTENDING NOTE: Patient seen and examined by me. I discussed with nurse practitioner, Yasmanifrancisco j. The patient doing better. Diarrhea settled down. Acute renal failure slowly improving. Getting IV fluids. PHYSICAL EXAMINATION: Temperature 96.6, pulse 58, respiratory 18, blood pressure 120/71. Lungs slightly decreased breath sounds. Cardiovascular 1st and 2nd sounds normal. INVESTIGATIONS: BUN 65, creatinine 1.51. ASSESSMENT: Acute renal failure from diuretics and dehydration from acute gastroenteritis latter of which is improved. PLAN: Continue with IV fluids. Care was discussed with the patient. It is to be noted that the patient's creatinine was 0.90 back on 02/21/17. MMODL / IJN: [id number] /
[2017-05-05 20:40] LABS: Glucose,Whole Blood 61 mg/dL (75-99)
[2017-05-05] MEDS: INSULIN DETEMIR 100 UNIT/ML 10 ML VIAL SQ SCH (21:16)
[2017-05-05 21:17] LABS: Glucose,Whole Blood 78 mg/dL (75-99)
[2017-05-05] MEDS: ATORVASTATIN 40 MG TAB PO SCH (21:48)
[2017-05-06 02:48] LABS: Glucose,Whole Blood 184 mg/dL (75-99)
[2017-05-06] MEDS: LEVOTHYROXINE 100 MCG TAB PO SCH (06:32)
[2017-05-06 07:16] LABS: Glucose,Whole Blood 204 mg/dL (75-99)
[2017-05-06 07:22] VITALS: BP 145/75; PULSE 69; RESP 18; TEMP 97
[2017-05-06] MEDS: SYMBICORT 160-4.5 MCG INHALER INHALATION SCH (07:27)
[2017-05-06] MEDS: INSULIN ASPART 100 UNIT/ML 1 ML 10 ML VIAL SQ SCH ×2 (07:44→12:51)
[2017-05-06] MEDS: LACTATED RINGERS 1,000 ML IV SCH (07:44)
[2017-05-06] MEDS: metFORMIN 500 MG TAB PO SCH (07:44)
[2017-05-06] MEDS: METOPROLOL TARTRATE 50 MG TAB PO SCH (07:45)
[2017-05-06] MEDS: FERROUS SULFATE 325 MG TAB PO SCH (07:45)
[2017-05-06] MEDS: FAMOTIDINE 20 MG TAB PO SCH (07:45)
[2017-05-06] MEDS: AMIODARONE 200 MG TAB PO SCH (07:45)
[2017-05-06] MEDS: LORATADINE 10 MG TAB PO SCH (07:45)
[2017-05-06 09:12] LABS: Calcium 8.8 mg/dL (8.4-10.2); Potassium 4.1 mmol/L (3.5-5.1)
[2017-05-06 12:04] LABS: Glucose,Whole Blood 157 mg/dL (75-99)
[2017-05-06] MEDS ORDERED: INFLUENZA VACCINE (6 MOS+) 60 MCG/0.5 ML SYRINGE IM ONE (12:25)
[2017-05-06] MEDS ORDERED: PNEUMOCOCCAL VACC-PNEUMOVAX 23 25 MCG/0.5 ML VIAL IM ONE (12:26)
--- NOTE | 2017-05-06 20:00 | P.DS ---
Providers Date of admission: 05/03/17 14:01 Expected date of discharge: 05/06/17 Attending physician: Jason Mancuso Primary care physician: Dontae Quan [facility] Course: FINAL DIAGNOSES: -Acute renal failure, likely prerenal the patient takes diuretics and from dehydration from acute gastroenteritis, slow to respond -Acute gastroenteritis likely viral, typically self-limiting, improving -Chronic cor pulmonale and secondary pulmonary hypertension. -Chronic congestive heart failure from diastolic dysfunction, ejection fraction 60%. -Paroxysmal atrial fibrillation, chronically on Coumadin. -Hypothyroidism. -Obstructive sleep apnea, does not use a CPAP machine. -Morbid obesity BMI of 46. -Hyperlipidemia. -Diabetes mellitus type 2 chronically on hypoglycemics and insulin. -Chronic hypoxic respiratory failure on 3 L of oxygen at home from chronic obstructive pulmonary disease. 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 -Coumadin monitoring. HOSPTIAL COURSE: 66-year-old female who presented to the emergency department with nausea vomiting diarrhea and abdominal discomfort. On admission was found to be in acute renal failure admitted for the same. Home medications reordered, IV fluids initiated, diuretics held. Patient's kidney function improved, tolerating her diet, no nausea or vomiting diarrhea is improved. Ambulatory to and from the bathroom with assistance. Patient's condition is stable for discharge. PHYSICAL EXAM: CARDIOVASCULAR: First and second sounds noted mild edema RESPIRATORY: Respiratory effort mildly increased with exertion, lung sounds diminished bilaterally GI: Abdomen soft pendulous nontender to palpation liver and spleen not palpable MUSKULOSKELETAL: Ambulatory with assistance and walker PSYCHIATRY: Alert and oriented 3 with and affect normal.: Patient was seen and examined by nurse practitioner Jaimie Pope in all elements of the case discussed with attending Dr. Mancuso DISPOSITION: Discharge Home to the care of her family, patient should follow-up with Dr. Quan in a week, follow-up labs, instructed to start her Lasix tomorrow and to take Metamucil every other day to bulk up her stools and instructed to take her metformin with her meals. Patient Condition at Discharge: Stable Plan - Discharge Summary Discharge Rx Participant: Yes New Discharge Prescriptions: Continue Ranitidine HCl 150 mg PO BID Ferrous Sulfate [Feosol] 325 mg PO BID metFORMIN HCL 1,000 mg PO BID Atorvastatin [Lipitor] 40 mg PO HS Metoprolol Tartrate [Lopressor] 50 mg PO BID #60 tab Budesonide/Formoterol Fumarate [Symbicort 160-4.5 Mcg Inhaler] 1 puff INHALATION RT-BID Insulin Glulisine [Apidra Solostar] 8 unit SQ TID-W/MEALS Albuterol Inhaler [Ventolin Hfa Inhaler] 2 puff INHALATION RT-Q6H PRN PRN Reason: Shortness Of Breath Ipratropium-Albuterol Nebulize [Duoneb 0.5 mg-3 mg/3 ml Soln] 3 ml INHALATION RT-QID PRN PRN Reason: Shortness Of Breath Warfarin [Coumadin] 5 mg PO SUMOTUTHFRSA Warfarin [Coumadin] 2.5 mg PO WE Furosemide [Lasix] 40 mg PO BID Amiodarone [Cordarone] 200 mg PO DAILY Levothyroxine Sodium [Synthroid] 100 mcg PO DAILY Loratadine [Claritin] 10 mg PO DAILY Insulin Glargine,Hum.rec.anlog [Basaglar Kwikpen U-100] 40 unit SQ HS Discontinued Metolazone [Zaroxolyn] 2.5 mg PO DAILY Discharge Medication List Ferrous Sulfate [Feosol] 325 mg PO BID 07/14/14 [History] Ranitidine HCl 150 mg PO BID 07/14/14 [History] metFORMIN HCL 1,000 mg PO BID 07/14/14 [History] Atorvastatin [Lipitor] 40 mg PO HS 09/28/15 [History] Metoprolol Tartrate [Lopressor] 50 mg PO BID #60 tab 10/08/15 [Rx] Budesonide/Formoterol Fumarate [Symbicort 160-4.5 Mcg Inhaler] 1 puff INHALATION RT-BID 04/02/16 [History] Insulin Glulisine [Apidra Solostar] 8 unit SQ TID-W/MEALS 04/02/16 [History] Albuterol Inhaler [Ventolin Hfa Inhaler] 2 puff INHALATION RT-Q6H PRN 11/13/16 [ History] Ipratropium-Albuterol Nebulize [Duoneb 0.5 mg-3 mg/3 ml Soln] 3 ml INHALATION RT -QID PRN 01/13/17 [History] Warfarin [Coumadin] 2.5 mg PO WE 01/15/17 [History] Warfarin [Coumadin] 5 mg PO SUMOTUTHFRSA 01/15/17 [History] Amiodarone [Cordarone] 200 mg PO DAILY 02/16/17 [History] Furosemide [Lasix] 40 mg PO BID 02/16/17 [History] Levothyroxine Sodium [Synthroid] 100 mcg PO DAILY 02/16/17 [History] Insulin Glargine,Hum.rec.anlog [Basaglar Kwikpen U-100] 40 unit SQ HS 05/03/17 [ History] Loratadine [Claritin] 10 mg PO DAILY 05/03/17 [History] Follow up Appointment(s)/Referral(s): [facility], [NON-STAFF] - Dontae Quan DO [Primary Care Provider] - 1 Week Ambulatory/Diagnostic Orders: Basic Metabolic Panel [LAB.AMB] Location: Determined By Patient Patient Instructions/Handouts: Acute Kidney Injury (DC) Activity/Diet/Wound Care/Special Instructions: start lasix from tomorrow Take metamucil every other day to bulk up stools Take metformin with meals Discharge Disposition: HOME WITH HOME HEALTH SERVICES
--- NOTE | 2017-05-07 12:19 | DS ---
DISCHARGE SUMMARY DATE OF DISCHARGE: 05/06/17 ATTENDING NOTE: Patient was seen and examined by me. I discussed with nurse practitioner Ms. Pope. Patient admitted with acute gastroenteritis and was in acute renal failure. The patient's creatinine came down from 1.9 down to 1.28 this morning. The patient's Zaroxolyn has been discontinued. Patient will resume Lasix starting tomorrow. Patient doing well. Patient does intermittently get diarrhea. Patient told to ask to add Metamucil every other day to her diet. EXAMINATION: ABDOMEN: Soft, nontender. Creatinine is 1.28. Follow up labs as outpatient. MMODL / IJN: [id number] /
[2017-05-09] MEDS ORDERED: WARFARIN 2.5 MG TAB PO SCH (18:00)
== END 2017-05-06 14:21 | disposition home health service (06) | DRG 683 ==
LOC: EC 10:32 → 4MS4W 14:01 → 5MS5E 14:57 → 4MS4W 15:10
PROVIDERS: ADMIT Hospitalist; ATTEND Hospitalist
DX: N17.9 Acute kidney failure, unspecified (principal); J96.11 Chronic respiratory failure with hypoxia; I27.29 Other secondary pulmonary hypertension; E66.01 Morbid (severe) obesity due to excess calories; I11.0 Hypertensive heart disease with heart failure; I27.81 Cor pulmonale (chronic); I50.32 Chronic diastolic (congestive) heart failure; E86.0 Dehydration; I48.0 Paroxysmal atrial fibrillation; Z68.42 Body mass index [BMI] 45.0-49.9, adult; T50.2X5A Adverse effect of carbonic-anhydrase inhibitors, benzothiadiazides and other diuretics, initial encounter; A08.4 Viral intestinal infection, unspecified; E03.9 Hypothyroidism, unspecified; E11.9 Type 2 diabetes mellitus without complications; E78.5 Hyperlipidemia, unspecified; G47.33 Obstructive sleep apnea (adult) (pediatric); J44.9 Chronic obstructive pulmonary disease, unspecified; K21.9 Gastro-esophageal reflux disease without esophagitis; Z79.01 Long term (current) use of anticoagulants; Z79.4 Long term (current) use of insulin; Z79.51 Long term (current) use of inhaled steroids; Z79.899 Other long term (current) drug therapy; Z99.81 Dependence on supplemental oxygen; Y92.009 Unspecified place in unspecified non-institutional (private) residence as the place of occurrence of the external cause
CPT/HCPCS: 36415; 71046; 74018; 80048; 80053; 81003; 82150; 82272; 82550; 82553; 83690; 83880; 84484; 85025; 85610; 85730; 87045; 87046; 87324; 89055; 90686; 90732; 93005; 94640; 94760; 96361; 96374; 99285

== ENCOUNTER 2017-07-15 13:43 | Inpatient (IN) | payer OTHER ==
[2017-07-15] MEDS ORDERED: SODIUM CHLORIDE 0.9% 1,000 ML IV STA (14:01)
[2017-07-15] MEDS ORDERED: IPRATROPIUM-ALBUTEROL 3 ML NEB INHALATION STA (14:02)
--- NOTE | 2017-07-15 14:05 | ED ---
General Adult HPI - General Source: patient, family, RN notes reviewed Mode of arrival: wheelchair Limitations: no limitations <Ezequiel Antony - Last Filed: 07/15/17 16:00> <Sal Vang - Last Filed: 07/15/17 16:36> - General Chief complaint: Shortness of Breath Stated complaint: ANNE MARIE/Fluid Retention Time Seen by Provider: 07/15/17 13:54 - History of Present Illness Initial comments: Patient is 66-year-old female significant past medical history for CHF, A. fib, COPD, CAD, diabetes, hypertension, hyperlipidemia, hypothyroid, presenting today with a chief complaint of increased shortness of breath. Patient does admit that over the last week she's been having increased difficulty breathing. She does admit to increased swelling to her legs and her abdomen. She states her abdomen feels more tight. Patient states she has increased the Lasix currently taking 40 mg twice a day. States does not seem to be helping. Patient denies any complaints or symptoms. Patient denies any recent fever, chills, chest pain, back pain, abdominal pain, nausea or vomiting, numbness or tingling, dysuria or hematuria, constipation or diarrhea, headaches or visual changes, or any other complaints. (Ezequiel Antony) - Related Data Home Medications Medication Instructions Recorded Confirmed Ferrous Sulfate [Feosol] 325 mg PO BID 07/14/14 07/15/17 Ranitidine HCl 150 mg PO BID 07/14/14 07/15/17 Atorvastatin [Lipitor] 40 mg PO HS 09/28/15 07/15/17 Budesonide/Formoterol Fumarate 1 puff INHALATION RT-BID 04/02/16 07/15/17 [Symbicort 160-4.5 Mcg Inhaler] Insulin Glulisine [Apidra Solostar] 8 unit SQ TID-W/MEALS 04/02/16 07/15/17 Albuterol Inhaler [Ventolin Hfa 2 puff INHALATION RT-Q6H PRN 11/13/16 07/15/17 Inhaler] Ipratropium-Albuterol Nebulize 3 ml INHALATION RT-TID 01/13/17 07/15/17 [Duoneb 0.5 mg-3 mg/3 ml Soln] Warfarin [Coumadin] 2.5 mg PO SA 01/15/17 07/15/17 Warfarin [Coumadin] 5 mg PO SUMOTUWETHFR 01/15/17 07/15/17 Amiodarone [Cordarone] 200 mg PO DAILY 02/16/17 07/15/17 Furosemide [Lasix] 40 mg PO BID 02/16/17 07/15/17 Levothyroxine Sodium [Synthroid] 100 mcg PO DAILY 02/16/17 07/15/17 Loratadine [Claritin] 10 mg PO DAILY 05/03/17 07/15/17 Insulin Glargine [Lantus] 45 unit SQ HS 07/15/17 07/15/17 Lisinopril [Zestril] 5 mg PO DAILY 07/15/17 07/15/17 Nystatin 100,000 Unit/gm Powd 1 applic TOPICAL TID 07/15/17 07/15/17 [Mycostatin Powder] Polyethylene Glycol 3350 [Miralax] 17 gm PO DAILY PRN 07/15/17 07/15/17 Previous Rx's Medication Instructions Recorded Metoprolol Tartrate [Lopressor] 50 mg PO BID #60 tab 10/08/15 Allergies Allergy/AdvReac Type Severity Reaction Status Date / Time No Known Allergies Allergy Verified 07/15/17 14:45 Review of Systems ROS Other: All systems not noted in ROS Statement are negative. <Ezequiel Antony - Last Filed: 07/15/17 16:00> ROS Other: All systems not noted in ROS Statement are negative. <Sal Vang - Last Filed: 07/15/17 16:36> ROS Statement: Those systems with pertinent positive or pertinent negative responses have been documented in the HPI. Past Medical History Past Medical History: Atrial Fibrillation, Asthma, Coronary Artery Disease (CAD) , Chest Pain / Angina, Heart Failure, Diabetes Mellitus, Hyperlipidemia, Hypertension, Thyroid Disorder Additional Past Medical History / Comment(s): Severe obstructive sleep apnea- does not tolerate CPAP-wears O2 at 3L/NC at hs, pulmonary htn, morbid obesity, history of cellulitis right lower extremity-healed, hypothyroidism. She also has aortic valve stenosis with a potential of bicuspid versus tricuspid aortic valve and a previous ejection fraction of 45%, lower extremity edema History of Any Multi-Drug Resistant Organisms: None Reported Past Surgical History: Appendectomy, Cholecystectomy, Heart Catheterization, Hernia Repair Additional Past Surgical History / Comment(s): 11/03/15 TIMOTHY with cardioversion, cardiac cath, ROSANGELA CATARACTS Past Anesthesia/Blood Transfusion Reactions: No Reported Reaction Past Psychological History: No Psychological Hx Reported Smoking Status: Never smoker Past Alcohol Use History: None Reported Past Drug Use History: None Reported - Past Family History Mother Family Medical History: Cancer Additional Family Medical History / Comment(s): SKIN AND LUNG CANCER "MESOTHELIOMA" Father Family Medical History: CVA/TIA <Ezequiel Antony - Last Filed: 07/15/17 16:00> General Exam Limitations: no limitations <Ezequiel Antony - Last Filed: 07/15/17 16:00> <Sal Vang - Last Filed: 07/15/17 16:36> - General Exam Comments Initial Comments: General: The patient is awake and alert, in no distress, and does not appear acutely ill. Eye: Pupils are equal, round and reactive to light, extra-ocular movements are intact. No nystagmus. There is normal conjunctiva bilaterally. No signs of icterus. Ears, nose, mouth and throat: There are moist mucous membranes and no oral lesions. Neck: The neck is supple, there is no tenderness or JVD. Cardiovascular: There is a regular rate and rhythm. No murmur, rub or gallop is appreciated. Respiratory: Lungs are clear to auscultation, respirations are non-labored, breath sounds are equal. No wheezes, stridor, rales, or rhonchi. Gastrointestinal: Abdomen does feel firm on palpation. Nontender. No rebound tenderness. No guarding. No CVA tenderness. Musculoskeletal: Normal ROM, no tenderness. Strength 5/5. Sensation intact. Pulses equal bilaterally 2+. 1+ pitting edema lower extremities. Neurological: A&O x 3. CN II-XII intact, There are no obvious motor or sensory deficits. Coordination appears grossly intact. Speech is normal. Skin: Skin is warm and dry and no rashes or lesions are noted. Psychiatric: Cooperative, appropriate mood & affect, normal judgment. (Ezequiel Antony) Course <Ezequiel Antony - Last Filed: 07/15/17 16:00> <Sal Vang - Last Filed: 07/15/17 16:36> Vital Signs 07/15/17 07/15/17 07/15/17 13:48 14:13 14:19 Temperature 97 F L Pulse Rate 59 L 57 L 58 L Respiratory 24 Rate Blood Pressure 153/67 O2 Sat by Pulse 95 Oximetry 07/15/17 07/15/17 15:55 16:33 Temperature 98.5 F Pulse Rate 60 Respiratory 22 Rate Blood Pressure 156/67 O2 Sat by Pulse 96 Oximetry - Reevaluation(s) Reevaluation #1: 07/15/17 16:35 P supervision: I did personally do a [id number] evaluation patient did discuss findings with her. Patient does demonstrate Ms. breath sounds with some basilar rales. She will be admitted the case was discussed with the hospitalist. (Sal Vang) Medical Decision Making - Lab Data Result diagrams: 07/15/17 14:23 07/15/17 14:22 <Ezequiel Antony - Last Filed: 07/15/17 16:00> - Lab Data Result diagrams: 07/15/17 14:23 07/15/17 14:22 <Sal Vang - Last Filed: 07/15/17 16:36> - Medical Decision Making Patient's labs been reviewed does show elevated BUN creatinine which is similar to previous labs. Patient's chest x-ray does show reports a little pneumonia. Patient's BNP greater than 2000. Patient currently on Lasix at home. Will be given IV dose. Return on antibiotics in the emergency room. Admitted to hospitalist for further evaluation. (Ezequiel Antony) - Lab Data Lab Results 07/15/17 07/15/17 07/15/17 Range/Units 14:22 14:22 14:22 WBC (3.8-10.6) k/uL RBC (3.80-5.40) m/uL Hgb (11.4-16.0) gm/dL Hct (34.0-46.0) % MCV (80.0-100.0) fL MCH (25.0-35.0) pg MCHC (31.0-37.0) g/dL RDW (11.5-15.5) % Plt Count (150-450) k/uL Neutrophils % % Lymphocytes % % Monocytes % % Eosinophils % % Basophils % % Neutrophils # (1.3-7.7) k/uL Lymphocytes # (1.0-4.8) k/uL Monocytes # (0-1.0) k/uL Eosinophils # (0-0.7) k/uL Basophils # (0-0.2) k/uL Hypochromasia PT (9.0-12.0) sec INR (<1.2) APTT (22.0-30.0) sec Sodium 144 (137-145) mmol/L Potassium 4.1 (3.5-5.1) mmol/L Chloride 102 (98-107) mmol/L Carbon Dioxide 28 (22-30) mmol/L Anion Gap 14 mmol/L BUN 60 H (7-17) mg/dL Creatinine 1.65 H (0.52-1.04) mg/dL Est GFR (CKD-EPI)AfAm 38 (>60 ml/min/1.73 sqM) Est GFR (CKD-EPI)NonAf 33 (>60 ml/min/1.73 sqM) Glucose 372 H (74-99) mg/dL Calcium 8.2 L (8.4-10.2) mg/dL Magnesium 2.2 (1.6-2.3) mg/dL Total Bilirubin 0.3 (0.2-1.3) mg/dL AST 46 H (14-36) U/L ALT 51 (9-52) U/L Alkaline Phosphatase 207 H (38-126) U/L Total Creatine Kinase 173 H (30-135) U/L CK-MB (CK-2) 3.1 H* (0.0-2.4) ng/mL CK-MB (CK-2) Rel Index 1.8 Troponin I <0.012 (0.000-0.034) ng/mL NT-Pro-B Natriuret Pep 2170 pg/mL Total Protein 5.7 L (6.3-8.2) g/dL Albumin 3.3 L (3.5-5.0) g/dL 18 07/15/17 Range/Units 14:22 14:23 WBC 9.3 (3.8-10.6) k/uL RBC 4.38 (3.80-5.40) m/uL Hgb 12.2 (11.4-16.0) gm/dL Hct 40.5 (34.0-46.0) % MCV 92.5 (80.0-100.0) fL MCH 27.8 (25.0-35.0) pg MCHC 30.1 L (31.0-37.0) g/dL RDW 15.7 H (11.5-15.5) % Plt Count 196 (150-450) k/uL Neutrophils % 80 % Lymphocytes % 11 % Monocytes % 5 % Eosinophils % 2 % Basophils % 1 % Neutrophils # 7.4 (1.3-7.7) k/uL Lymphocytes # 1.0 (1.0-4.8) k/uL Monocytes # 0.5 (0-1.0) k/uL Eosinophils # 0.2 (0-0.7) k/uL Basophils # 0.1 (0-0.2) k/uL Hypochromasia Marked PT 23.5 H (9.0-12.0) sec INR 2.6 H (<1.2) APTT 30.1 H (22.0-30.0) sec Sodium (137-145) mmol/L Potassium (3.5-5.1) mmol/L Chloride (98-107) mmol/L Carbon Dioxide (22-30) mmol/L Anion Gap mmol/L BUN (7-17) mg/dL Creatinine (0.52-1.04) mg/dL Est GFR (CKD-EPI)AfAm (>60 ml/min/1.73 sqM) Est GFR (CKD-EPI)NonAf (>60 ml/min/1.73 sqM) Glucose (74-99) mg/dL Calcium (8.4-10.2) mg/dL Magnesium (1.6-2.3) mg/dL Total Bilirubin (0.2-1.3) mg/dL AST (14-36) U/L ALT (9-52) U/L Alkaline Phosphatase (38-126) U/L Total Creatine Kinase (30-135) U/L CK-MB (CK-2) (0.0-2.4) ng/mL CK-MB (CK-2) Rel Index Troponin I (0.000-0.034) ng/mL NT-Pro-B Natriuret Pep pg/mL Total Protein (6.3-8.2) g/dL Albumin (3.5-5.0) g/dL Disposition Time of Disposition: 16:01 <Ezequiel Antony - Last Filed: 07/15/17 16:00> <Sal Vang - Last Filed: 07/15/17 16:36> Clinical Impression: CHF exacerbation, CAP (community acquired pneumonia) Disposition: ADMITTED IP TO THIS HOSP Condition: Stable Addendum entered and electronically signed by Ezequiel Antony PA-C 07/15/17 16: 17: EKG performed at 1443: Shows sinus bradycardia at 57 beats per minute. NC interval 178. QRS 132. QT/QTC 482/469. EKG compared to previous EKG performed on 05/03/2017 showing no acute changes.
[2017-07-15 14:55] LABS: Basophils # (A) 0.1 k/uL (0-0.2); Basophils % (A) 1 %; Eosinophils # (A) 0.2 k/uL (0-0.7); Eosinophils % (A) 2 %; HCT 40.5 % (34.0-46.0); HGB 12.2 gm/dL (11.4-16.0); Hypochromasia Marked; Lymphocytes % (A) 11 %; MCH 27.8 pg (25.0-35.0); MCHC 30.1 g/dL (31.0-37.0); MCV 92.5 fL (80.0-100.0); Mean Platelet Volume 8.5; Monocytes # (A) 0.5 k/uL (0-1.0); Monocytes % (A) 5 %; Neutrophils # (A) 7.4 k/uL (1.3-7.7); Neutrophils % (A) 80 %; Platelet Count 196 k/uL (150-450); RBC 4.38 m/uL (3.80-5.40); RDW 15.7 % (11.5-15.5); WBC 9.3 k/uL (3.8-10.6)
[2017-07-15 15:05] LABS: Albumin 3.3 g/dL (3.5-5.0); Calcium 8.2 mg/dL (8.4-10.2); INR 2.6 (<1.2); Magnesium 2.2 mg/dL (1.6-2.3); Partial Thromboplastin Time 30.1 sec (22.0-30.0); Potassium 4.1 mmol/L (3.5-5.1); Prothrombin Time 23.5 sec (9.0-12.0); Total Bilirubin 0.3 mg/dL (0.2-1.3); Total Protein 5.7 g/dL (6.3-8.2)
--- NOTE | 2017-07-15 15:10 | XR ---
EXAMINATION TYPE: XR chest 2V DATE OF EXAM: 07/15/2017 COMPARISON: 05/03/2017 HISTORY: Congestive heart failure and difficulty breathing TECHNIQUE: Frontal and lateral views of the chest are obtained. FINDINGS: There is marked cardiomegaly, right middle lobe opacity obscuring the right heart border, m oderate pulmonary vascular congestion and interstitial edema. There is no focal air space opacity, pl eural effusion, or pneumothorax seen. The cardiac silhouette size is within normal limits. The oss eous structures are intact. Mild multilevel degenerative changes of thoracic spine are noted. IMPRESSION: 1. New right middle lobe opacity may represent atelectasis or pneumonia. 2. Redemonstration marked cardiomegaly and pulmonary vascular congestion/interstitial edema on the ba sis of congestive heart failure.
[2017-07-15 15:20] LABS: Creatine Kinase 173 U/L (30-135)
[2017-07-15 15:34] LABS: Troponin I <0.012 ng/mL (0.000-0.034)
[2017-07-15 15:36] LABS: Creatine Kinase MB 3.1 ng/mL (0.0-2.4)
[2017-07-15] MEDS ORDERED: cefTRIAXone IN SWFI 1,000 MG/10 ML SYRINGE IVP STA (15:58)
[2017-07-15] MEDS ORDERED: PNEUMONIA PROTOCOL UTILIZED 1 EACH MISC PO PRN (15:58)
[2017-07-15] MEDS ORDERED: AZITHROMYCIN 500 MG in SODIUM CHLORIDE 0.9% 250 ML IVPB STA (15:58)
[2017-07-15] MEDS ORDERED: FUROSEMIDE 10 MG/ML 4 ML VIAL IV STA (15:59)
[2017-07-15] MEDS ORDERED: ALBUTEROL NEBULIZED 2.5 MG/3 ML INHALATION PRN (18:52)
[2017-07-15] MEDS ORDERED: POLYETHYLENE GLYCOL 3350 17 GM POWD.PACK PO PRN (18:52)
[2017-07-15] MEDS: IPRATROPIUM-ALBUTEROL 3 ML NEB INHALATION SCH (19:54)
[2017-07-15] MEDS: SYMBICORT 160-4.5 MCG INHALER INHALATION SCH (19:54)
[2017-07-15 20:14] LABS: Glucose,Whole Blood 286 mg/dL (75-99)
[2017-07-15 20:20] LABS: Glucose,Whole Blood 247 mg/dL (75-99)
[2017-07-15] MEDS: FAMOTIDINE 20 MG TAB PO SCH (21:14)
[2017-07-15] MEDS: ATORVASTATIN 40 MG TAB PO SCH (21:14)
[2017-07-15] MEDS: WARFARIN 5 MG TAB PO SCH (21:14)
[2017-07-15] MEDS: FERROUS SULFATE 325 MG TAB PO SCH (21:14)
[2017-07-15] MEDS: METOPROLOL TARTRATE 50 MG TAB PO SCH (21:14)
[2017-07-15] MEDS: INSULIN DETEMIR 100 UNIT/ML 10 ML VIAL SQ SCH (21:15)
[2017-07-15] MEDS: NYSTATIN 100,000 UNIT/GM POWD 15 GM TOPICAL SCH (21:15)
[2017-07-15] MEDS: INSULIN ASPART 100 UNIT/ML 1 ML 10 ML VIAL SQ SCH (21:19)
[2017-07-15 22:57] LABS: Hemoglobin A1C 7.5 % (4.0-6.0)
[2017-07-15] MEDS: FUROSEMIDE 10 MG/ML 4 ML VIAL IV SCH (23:26)
--- NOTE | 2017-07-15 23:51 | HP ---
HISTORY AND PHYSICAL CHIEF COMPLAINT: Shortness of breath and cough. HISTORY OF PRESENT ILLNESS: This 66-year-old woman with a past history of multiple medical problems including asthma, history atrial fibrillation, history of CAD, CHF, diabetes mellitus type 2, history of hypertension, hypothyroidism, history of sleep apnea being followed by Dr. Radha Quan in the outpatient setting is complaining of increasing shortness of breath. The patient also had some fluid restriction also. The patient came to [facility] and blood sugar was found to be high. The patient also had a chest x- ray, which showed a new right middle lobe opacity and pneumonia. The patient was admitted for further evaluation and treatment. There is no history of fever, rigors, headache, loss of consciousness, seizures. PAST MEDICAL HISTORY: Atrial fibrillation, asthma, CAD, CHF, diabetes mellitus, hypertension, hypothyroidism, history of obstructive sleep apnea. MEDICATIONS PRIOR TO ADMISSION: 1. MiraLAX 17 g daily p.r.n. 2. Mycostatin 1 application t.i.d. 3. Zestril 5 mg. 4. DuoNeb t.i.d. 5. Apidra 8 units subcu t.i.d. 6. Lantus 40 units subcu a.c. and h.s. 7. Lasix 40 mg p.o. b.i.d. 8. Iron sulfate 320 mg b.i.d. 10.Lipitor 40 mg q.h.s. 11.Cordarone 200 mg p.o. daily. 12.Ventolin 2 puffs q.6h p.r.n. 13.Coumadin 2.5 mg p.o. Sunday and 5 mg on Sunday, Sunday, Sunday, Sunday, and Sunday. 14.Ranitidine 150 mg p.o. b.i.d. 15.Lopressor 50 mg p.o. b.i.d. 16.Claritin 10 mg daily. 17.Synthroid 100 mcg p.o. daily. ALLERGIES: None. FAMILY HISTORY: History of skin cancer and mesothelioma. SOCIAL HISTORY: No history of smoking. No history of alcohol intake. REVIEW OF SYSTEMS: ENT: No diminished hearing or vision. CARDIOVASCULAR: As mentioned earlier. RESPIRATORY: As mentioned earlier. GI: No nausea. : No dysuria. NERVOUS SYSTEM: No numbness or weakness. ALLERGY/IMMUNOLOGY: No asthma. MUSCULOSKELETAL: As mentioned earlier. HEMATOLOGY: As mentioned. ENDOCRINE: No history of diabetes or hypothyroidism. CONSTITUTIONAL: As mentioned earlier. DERMATOLOGY: Negative. PSYCHIATRY: As mentioned earlier. PHYSICAL EXAMINATION: Alert and oriented x3. Pulse 60, blood pressure 150/67, respiration 20, temperature 98.4, pulse ox 96% on 2 L. HEENT: Conjunctivae normal. Oral mucosa moist. NECK: No jugular venous distention. No lymph node enlargement. CARDIOVASCULAR: S1 and S2. RESPIRATORY: Breath sounds diminished in the bases. Bilateral scattered rhonchi and crackles. Expiratory wheezing also present. ABDOMEN: Soft, nontender. No mass palpable. LEGS: No edema, no swelling. NERVOUS SYSTEM: As mentioned earlier, moves all 4 limbs, no focal motor or sensory deficits. LYMPHATICS: No lymph nodes palpable in the neck or axilla. SKIN: No ulcer or rash. LABS: WBC 9.2, hemoglobin 12.2. INR is 2.6 and creatinine is 1.65, alkaline phosphatase is 207, total creatine kinase 173, albumin 3.3. ASSESSMENT: 1. Chronic obstructive pulmonary disease acute exacerbation with acute right middle lobe pneumonia, possibly gram-negative. 2. Diabetes mellitus type 2. 3. with chronic kidney disease stage 3. 4. History of asthma. 5. History of coronary artery disease. 6. Congestive heart failure. 7. Diabetes type 2. 8. Hypertension. 9. Hyperlipidemia. 10.Hypothyroidism. 11.History of atrial fibrillation. 12.History of obstructive sleep apnea. 13.History of CPAP. 14.Chronic hypoxic respiratory failure. RECOMMENDATION AND DISCUSSION: In this 66-year-old woman who presented with multiple complex medical issues, we will monitor the patient closely. Continue the current management and symptomatic treatment. Otherwise at this time, I recommend broad-spectrum IV antibiotics. I would also recommend consultation by Dr. Lama. Other than that, resume the home medications. DVT prophylaxis. Guarded prognosis because of multiple complex medical issues. Further recommendations to follow. Followup labs have also been ordered. MMODL / IJN: [id number] / MTDD
[2017-07-16] MEDS: LEVOTHYROXINE 100 MCG TAB PO SCH (06:06)
[2017-07-16 07:22] LABS: Glucose,Whole Blood 76 mg/dL (75-99)
[2017-07-16] MEDS: INSULIN ASPART 100 UNIT/ML 1 ML 10 ML VIAL SQ SCH ×7 (07:59→21:05)
[2017-07-16] MEDS: METOPROLOL TARTRATE 50 MG TAB PO SCH ×2 (08:00→21:41)
[2017-07-16] MEDS: AMIODARONE 200 MG TAB PO SCH (08:01)
[2017-07-16] MEDS: cefTRIAXone IN SWFI 1,000 MG/10 ML SYRINGE IVP SCH (08:01)
[2017-07-16] MEDS: NYSTATIN 100,000 UNIT/GM POWD 15 GM TOPICAL SCH ×3 (08:01→21:06)
[2017-07-16] MEDS: AZITHROMYCIN 500 MG TAB PO SCH (08:01)
[2017-07-16] MEDS: LORATADINE 10 MG TAB PO SCH (08:02)
[2017-07-16] MEDS: FERROUS SULFATE 325 MG TAB PO SCH ×2 (08:02→21:05)
[2017-07-16] MEDS: FAMOTIDINE 20 MG TAB PO SCH (08:02)
--- NOTE | 2017-07-16 08:25 | XR ---
EXAMINATION TYPE: XR chest 2V DATE OF EXAM: 07/16/2017 COMPARISON: 07/15/2018 HISTORY: Pneumonia. Follow-up exam. TECHNIQUE: Frontal and lateral views of the chest are obtained. FINDINGS: There is redemonstration of a right middle lobe opacity partially obscuring the right hear t border that is improved in the interim. Mild pulmonary vascular congestion and interstitial edema a re seen. Cardiac silhouette is enlarged. No sizable pleural effusion although the costophrenic angles are partially obscured by patient body habitus. Osseous structures are grossly intact. IMPRESSION: 1. Improved aeration of the right middle lobe with persistent opacity that may represent atelectasis or pneumonia. 2. Cardiomegaly and mild pulmonary vascular congestion likely on the basis of decompensated congestiv e heart failure.
[2017-07-16 08:30] LABS: Basophils # (A) 0.1 k/uL (0-0.2); Basophils % (A) 1 %; Eosinophils # (A) 0.3 k/uL (0-0.7); Eosinophils % (A) 3 %; HCT 38.9 % (34.0-46.0); HGB 12.7 gm/dL (11.4-16.0); INR 2.7 (<1.2); Lymphocytes # (A) 1.2 k/uL (1.0-4.8); Lymphocytes % (A) 12 %; MCH 29.2 pg (25.0-35.0); MCHC 32.7 g/dL (31.0-37.0); MCV 89.3 fL (80.0-100.0); Mean Platelet Volume 7.7; Monocytes # (A) 0.6 k/uL (0-1.0); Monocytes % (A) 6 %; Neutrophils # (A) 7.4 k/uL (1.3-7.7); Neutrophils % (A) 77 %; Platelet Count 176 k/uL (150-450); Prothrombin Time 23.8 sec (9.0-12.0); RBC 4.35 m/uL (3.80-5.40); RDW 15.6 % (11.5-15.5); WBC 9.6 k/uL (3.8-10.6)
[2017-07-16 08:59] LABS: Calcium 8.5 mg/dL (8.4-10.2); Potassium 3.7 mmol/L (3.5-5.1)
[2017-07-16] MEDS ORDERED: LISINOPRIL 5 MG TAB PO SCH (09:00)
[2017-07-16] MEDS: SYMBICORT 160-4.5 MCG INHALER INHALATION SCH ×2 (09:14→19:35)
[2017-07-16] MEDS: IPRATROPIUM-ALBUTEROL 3 ML NEB INHALATION SCH ×3 (09:14→19:35)
[2017-07-16 10:36] LABS: Appearance,Urine Clear (Clear); Bilirubin,Urine Negative (Negative); Blood,Urine Negative (Negative); Color,Urine Light Yellow; Glucose,Urine (UA) Negative (Negative); Ketones,Urine Negative (Negative); Leukocyte Esterase,Urine Negative (Negative); Nitrite,Urine Negative (Negative); Protein,Urine Negative (Negative); Specific Gravity,Urine 1.009 (1.001-1.035); Urobilinogen,Urine <2.0 mg/dL (<2.0)
[2017-07-16 11:33] LABS: Glucose,Whole Blood 146 mg/dL (75-99)
[2017-07-16] MEDS: FUROSEMIDE 10 MG/ML 4 ML VIAL IV SCH ×2 (12:43→17:28)
--- NOTE | 2017-07-16 16:21 | P.CNPUL ---
History of Present Illness Consult date: 07/16/17 Requesting physician: Nayla Hilario Reason for consult: dyspnea, cough, asthma, pneumonia, obstructive sleep apnea Chief complaint: Increasing shortness of breath, peripheral edema, cough History of present illness: Bindu is a 66-year-old white female patient of Dr. Radha Quan, who presented to the emergency department on 07/15/2017 at 1343 with complaints of increasing shortness of breath, increasing swelling in her bilateral lower extremities, and abdominal wall, weight gain of 10 pounds over the course of 2 weeks, cough, increasing orthopnea, and exertional dyspnea. Patient denied any fever, denied any chills, she stated her cough was mostly dry, did bring up some small amount of yellow sputum initially, but now it is nonproductive. Patient does have an underlying history of congestive heart failure, chronic A. fib, coronary artery disease, diabetes mellitus type 2, hypertension, hyperlipidemia, hypothyroidism, and asthma. In addition she has a history of obstructive sleep apnea, however has not been able to tolerate the CPAP machine mask, therefore has been noncompliant with the treatment. Patient is a lifetime nonsmoker, was exposed to secondhand smoke from her parents and her spouse for an extended period of time. Was told in the past that she has an underlying history of COPD, her maintenance inhalers include Symbicort and DuoNeb nebulized treatments. Does not normally wear oxygen. Patient has been afebrile while inpatient, hemodynamically stable, currently in sinus rhythm. Lab work did not show any evidence of leukocytosis, WBC was 9.3 on admission, hemoglobin is 12.2, INR is 2.6, patient is on Coumadin for anticoagulation for her history of A. fib, electrolytes were within normal limits, BUN was 60, creatinine was 1.65, CK-MB was 3.1, troponin was negative 1, proBNP was 2170. Urinalysis was within normal limits. Chest x-ray showed new right middle lobe opacity that could represent atelectasis or pneumonia, cardiomegaly, and pulmonary vascular congestion/interstitial edema on the bases of congestive heart failure. Patient was started on a combination of Zithromax, and Rocephin , Lasix 40 mg every 8 hours IV, Symbicort, DuoNeb, and admitted for further management. Review of Systems All systems: negative Constitutional: Denies chills, Denies fever Eyes: denies blurred vision, denies pain Ears, nose, mouth and throat: Denies headache, Denies sore throat Cardiovascular: Reports decreased exercise tolerance, Reports dyspnea on exertion, Reports edema, Reports leg edema, Reports orthopnea, Denies chest pain , Denies shortness of breath Respiratory: Reports dyspnea, Reports sleep apnea, Denies cough Gastrointestinal: Denies abdominal pain, Denies diarrhea, Denies nausea, Denies vomiting Genitourinary: Denies dysuria, Denies hematuria Musculoskeletal: Denies myalgias Integumentary: Denies pruritus, Denies rash Neurological: Denies numbness, Denies weakness Psychiatric: Denies anxiety, Denies depression Endocrine: Denies fatigue, Denies weight change Past Medical History Past Medical History: Atrial Fibrillation, Asthma, Coronary Artery Disease (CAD) , Chest Pain / Angina, Heart Failure, Diabetes Mellitus, Hyperlipidemia, Hypertension, Thyroid Disorder Additional Past Medical History / Comment(s): Severe obstructive sleep apnea- does not tolerate CPAP-wears O2 at 3L/NC at hs, pulmonary htn, morbid obesity, history of cellulitis right lower extremity-healed, hypothyroidism. She also has aortic valve stenosis with a potential of bicuspid versus tricuspid aortic valve and a previous ejection fraction of 45%, lower extremity edema History of Any Multi-Drug Resistant Organisms: None Reported Past Surgical History: Appendectomy, Cholecystectomy, Heart Catheterization, Hernia Repair Additional Past Surgical History / Comment(s): 11/03/15 TIMOTHY with cardioversion, cardiac cath, ROSANGELA CATARACTS Past Anesthesia/Blood Transfusion Reactions: No Reported Reaction Past Psychological History: No Psychological Hx Reported Additional Psychological History / Comment(s): PT [facility]IVES AT [facility] IN [place],USES A WALKER WHEN OUTSIDE OF HER APT. PT DOES NOT HAVE A SCALE. Pt does not drive. She gets to [email or web address] by daughter taking or using [employer] bus. She cooks and manages her own medication. She has home O2 and a glucose monitor. Smoking Status: Never smoker Past Alcohol Use History: None Reported Additional Past Alcohol Use History / Comment(s): SECOND HAND SMOKE EXPOSURE ALL HER LIFE Past Drug Use History: None Reported - Past Family History Mother Family Medical History: Cancer Additional Family Medical History / Comment(s): SKIN AND LUNG CANCER "MESOTHELIOMA" Father Family Medical History: CVA/TIA Medications and Allergies Home Medications Medication Instructions Recorded Confirmed Type Ferrous Sulfate [Feosol] 325 mg PO BID 07/14/14 07/15/17 History Ranitidine HCl 150 mg PO BID 07/14/14 07/15/17 History Atorvastatin [Lipitor] 40 mg PO HS 09/28/15 07/15/17 History Metoprolol Tartrate [Lopressor] 50 mg PO BID #60 tab 10/08/15 07/15/17 Rx Budesonide/Formoterol Fumarate 1 puff INHALATION RT-BID 04/02/16 07/15/17 History [Symbicort 160-4.5 Mcg Inhaler] Insulin Glulisine [Apidra Solostar] 8 unit SQ TID-W/MEALS 04/02/16 07/15/17 History Albuterol Inhaler [Ventolin Hfa 2 puff INHALATION RT-Q6H PRN 11/13/16 07/15/17 History Inhaler] Ipratropium-Albuterol Nebulize 3 ml INHALATION RT-TID 01/13/17 07/15/17 History [Duoneb 0.5 mg-3 mg/3 ml Soln] Warfarin [Coumadin] 2.5 mg PO SA 01/15/17 07/15/17 History Warfarin [Coumadin] 5 mg PO SUMOTUWETHFR 01/15/17 07/15/17 History Amiodarone [Cordarone] 200 mg PO DAILY 02/16/17 07/15/17 History Furosemide [Lasix] 40 mg PO BID 02/16/17 07/15/17 History Levothyroxine Sodium [Synthroid] 100 mcg PO DAILY 02/16/17 07/15/17 History Loratadine [Claritin] 10 mg PO DAILY 05/03/17 07/15/17 History Insulin Glargine [Lantus] 45 unit SQ HS 07/15/17 07/15/17 History Lisinopril [Zestril] 5 mg PO DAILY 07/15/17 07/15/17 History Nystatin 100,000 Unit/gm Powd 1 applic TOPICAL TID 07/15/17 07/15/17 History [Mycostatin Powder] Polyethylene Glycol 3350 [Miralax] 17 gm PO DAILY PRN 07/15/17 07/15/17 History Allergies Allergy/AdvReac Type Severity Reaction Status Date / Time No Known Allergies Allergy Verified 07/15/17 14:45 Physical Exam Vitals: Vital Signs Temp Pulse Pulse Resp BP Pulse Ox 07/16/17 12:16 64 07/16/17 12:06 64 18 07/16/17 07:00 97.9 F 61 18 184/85 96 07/15/17 22:06 97.4 F L 60 20 171/80 97 07/15/17 20:10 66 07/15/17 19:46 66 07/15/17 16:33 98.5 F Intake and Output 07/16/17 07/16/17 07/16/17 06:59 14:59 22:59 Intake Total 160 Balance 160 Intake: IV 160 Sodium Chloride 0.9% 1, 160 000 ml @ 20 mls/hr IV . Q24H STA Rx#:[id number] Other: Voiding Method Toilet Toilet # Voids 3 Weight 138 kg GENERAL EXAM: Alert, pleasant, 66-year-old obese white female, comfortable in no apparent distress. HEAD: Normocephalic/atraumatic. EYES: Normal reaction of pupils, equal size. Conjunctiva pink, sclera white. NOSE: Clear with pink turbinates. THROAT: No erythema or exudates. NECK: No masses, no JVD, no thyroid enlargement, no adenopathy. CHEST: No chest wall deformity. Symmetrical expansion. LUNGS: Equal air entry with no crackles, wheeze, rhonchi or dullness. Diminished air entry noted bilaterally CVS: Regular rate and rhythm, normal S1 and S2, no gallops, no murmurs, no rubs ABDOMEN: Soft, nontender. No hepatosplenomegaly, normal bowel sounds, no guarding or rigidity. EXTREMITIES: No clubbing, no edema, no cyanosis, 2+ pulses and upper and lower extremities. MUSCULOSKELETAL: Muscle strength and tone normal. SPINE: No scoliosis or deformity SKIN: No rashes CENTRAL NERVOUS SYSTEM: Alert and oriented -3. No focal deficits, tone is normal in all 4 extremities. PSYCHIATRIC: Alert and oriented -3. Appropriate affect. Intact judgment and insight. Results - Laboratory Findings CBC and BMP: 07/16/17 07:20 07/16/17 07:20 PT/INR, D-dimer PT 23.8 sec (9.0-12.0) H 07/16/17 07:20 INR 2.7 (<1.2) H 07/16/17 07:20 Abnormal lab findings: Abnormal Labs 07/15/17 07/15/17 07/15/17 14:20 14:22 14:22 MCHC RDW PT INR APTT Sodium Carbon Dioxide BUN 60 H Creatinine 1.65 H Glucose 372 H POC Glucose (mg/dL) Hemoglobin A1c 7.5 H Calcium 8.2 L AST 46 H Alkaline Phosphatase 207 H Total Creatine Kinase 173 H CK-MB (CK-2) 3.1 H* Total Protein 5.7 L Albumin 3.3 L 07/15/17 07/15/17 07/15/17 14:22 14:23 18:25 MCHC 30.1 L RDW 15.7 H PT 23.5 H INR 2.6 H APTT 30.1 H Sodium Carbon Dioxide BUN Creatinine Glucose POC Glucose (mg/dL) 247 H Hemoglobin A1c Calcium AST Alkaline Phosphatase Total Creatine Kinase CK-MB (CK-2) Total Protein Albumin 07/15/17 07/16/17 07/16/17 20:12 07:20 07:20 MCHC RDW 15.6 H PT INR APTT Sodium 147 H Carbon Dioxide 33 H BUN 49 H Creatinine 1.33 H Glucose 64 L POC Glucose (mg/dL) 286 H Hemoglobin A1c Calcium AST Alkaline Phosphatase Total Creatine Kinase CK-MB (CK-2) Total Protein Albumin 07/16/17 07/16/17 07:20 11:09 MCHC RDW PT 23.8 H INR 2.7 H APTT Sodium Carbon Dioxide BUN Creatinine Glucose POC Glucose (mg/dL) 146 H Hemoglobin A1c Calcium AST Alkaline Phosphatase Total Creatine Kinase CK-MB (CK-2) Total Protein Albumin - Diagnostic Findings Chest x-ray: report reviewed Additional studies: Twelve-lead EKG reviewed Assessment and Plan Plan: Assessment: #1. Acute on chronic diastolic congestive heart failure with preserved ejection fraction of 55-60%, based on the 2-D echo from 11/14/2016 #2. Acute, community acquired pneumonia and acute COPD exacerbation #3. Acute on chronic kidney failure, stage III #4. Severe obstructive sleep apnea, with an AHI of 92, noncompliant with BiPAP therapy, which was prescribed at a pressure of 22/18 cm of water #5. Morbid obesity #6. History of paroxysmal atrial fibrillation, currently in sinus rhythm, on chronic anticoagulation with Coumadin with therapeutic INR on admission at 2.6 #7. Previous cardioversion for atrial fibrillation, the patient is currently on amiodarone #8. Diabetes mellitus type 2 #9. History of chronic bronchial asthma #10. Hypertension, hyperlipidemia #11. Hypothyroidism Plan: Continue current antibiotic coverage with Zithromax and Rocephin, continue IV diuresis with Lasix 40 mg every 8 hours, continue nebulized treatments, continue Symbicort, continue Claritin. Daily weights, accurate intake and output. Weaning FiO2. Repeat lab work in the morning, continue monitoring renal profile, and electrolytes. I performed a history & physical examination of the patient and discussed their management with my nurse practitioner, Tracie Quiñonez. I reviewed the nurse practitioner's note and agree with the documented findings and plan of care. Lung sounds are positive for diminished lung sounds bilaterally. The findings and the impression was discussed with the patient. I attest to the documentation by the nurse practitioner. Time with Patient: Greater than 30
--- NOTE | 2017-07-16 16:43 | PN ---
PROGRESS NOTE DATE OF SERVICE: 07/16/2017 This 66-year-old woman who was admitted with COPD, acute exacerbation, and right middle lobe pneumonia, possibly Gram-negative, is being closely monitored. Patient also has chronic kidney disease, stage III, and diabetes mellitus, type 2. No chest pain. No palpitations. No fever. On exam, alert and oriented x3. Pulse 61, blood pressure 184/85, respiration 18, temperature 97.2, pulse ox 96% on room air. HEENT: Conjunctivae normal. NECK: No jugular venous distention. CARDIOVASCULAR SYSTEM: S1, S2 muffled. RESPIRATORY SYSTEM: Breath sounds diminished at the bases. A few scattered rhonchi and crackles. ABDOMEN: Soft, non-tender.. LEGS: No edema. No swelling. NERVOUS SYSTEM: No focal deficit. LABS: CBC within normal limits. INR 2.7. Creatinine is 1.33. ASSESSMENT: 1. Chronic obstructive pulmonary disease, acute exacerbation, with acute right middle lobe pneumonia, possibly Gram-negative. 2. Diabetes mellitus, type 2. 3. Hypertension. 4. Chronic kidney disease, stage III. 5. History of asthma. 6. History of coronary artery disease. 7. History of congestive heart failure. 8. Hypertension. 9. Hyperlipidemia. 10.Hypothyroidism. 11.History of atrial fibrillation. 12.History of sepsis. 13.Obstructive sleep apnea. 14.History of CPAP. 15.History of chronic hypoxic respiratory failure. RECOMMENDATIONS AND DISCUSSION: In this 66-year-old woman who presented with multiple complex medical issues, we will monitor the patient closely, continue the current medications, continue with symptomatic treatment. Otherwise I would recommend monitoring the blood sugars closely. Continue with the antibiotics. Prognosis guarded. Further recommendations to follow. MMODL / IJN: [id number] /
[2017-07-16] MEDS: WARFARIN 5 MG TAB PO SCH (17:28)
[2017-07-16 17:34] LABS: Glucose,Whole Blood 154 mg/dL (75-99)
[2017-07-16 20:46] LABS: Glucose,Whole Blood 219 mg/dL (75-99)
[2017-07-16] MEDS: INSULIN DETEMIR 100 UNIT/ML 10 ML VIAL SQ SCH (21:05)
[2017-07-16] MEDS: ATORVASTATIN 40 MG TAB PO SCH (21:06)
[2017-07-16] MEDS: LISINOPRIL 10 MG TAB PO SCH (21:06)
[2017-07-17] MEDS: LEVOTHYROXINE 100 MCG TAB PO SCH (06:20)
[2017-07-17] MEDS: SYMBICORT 160-4.5 MCG INHALER INHALATION SCH ×2 (07:04→20:19)
[2017-07-17] MEDS: IPRATROPIUM-ALBUTEROL 3 ML NEB INHALATION SCH ×3 (07:04→20:19)
[2017-07-17 07:30] LABS: Basophils % (A) 1 %; Eosinophils # (A) 0.2 k/uL (0-0.7); Eosinophils % (A) 3 %; HCT 39.3 % (34.0-46.0); HGB 12.7 gm/dL (11.4-16.0); Lymphocytes # (A) 1.2 k/uL (1.0-4.8); Lymphocytes % (A) 16 %; MCH 28.7 pg (25.0-35.0); MCHC 32.4 g/dL (31.0-37.0); MCV 88.5 fL (80.0-100.0); Mean Platelet Volume 7.9; Monocytes # (A) 0.5 k/uL (0-1.0); Monocytes % (A) 6 %; Neutrophils # (A) 5.5 k/uL (1.3-7.7); Neutrophils % (A) 72 %; Platelet Count 178 k/uL (150-450); RBC 4.44 m/uL (3.80-5.40); RDW 15.7 % (11.5-15.5); WBC 7.6 k/uL (3.8-10.6)
[2017-07-17 07:38] LABS: INR 2.9 (<1.2); Prothrombin Time 26.3 sec (9.0-12.0)
[2017-07-17 07:41] LABS: Glucose,Whole Blood 96 mg/dL (75-99)
[2017-07-17] MEDS: INSULIN ASPART 100 UNIT/ML 1 ML 10 ML VIAL SQ SCH ×7 (07:41→21:32)
[2017-07-17 07:55] LABS: Calcium 8.7 mg/dL (8.4-10.2); Potassium 3.5 mmol/L (3.5-5.1)
[2017-07-17] MEDS: LORATADINE 10 MG TAB PO SCH (07:58)
[2017-07-17] MEDS: LISINOPRIL 10 MG TAB PO SCH ×2 (07:58→21:31)
[2017-07-17] MEDS: AMIODARONE 200 MG TAB PO SCH (07:58)
[2017-07-17] MEDS: FERROUS SULFATE 325 MG TAB PO SCH ×2 (07:58→21:31)
[2017-07-17] MEDS: FUROSEMIDE 10 MG/ML 4 ML VIAL IV SCH ×3 (07:59→21:31)
[2017-07-17] MEDS: METOPROLOL TARTRATE 50 MG TAB PO SCH ×3 (07:59→21:32)
[2017-07-17] MEDS: FAMOTIDINE 20 MG TAB PO SCH (07:59)
[2017-07-17] MEDS: AZITHROMYCIN 500 MG TAB PO SCH (07:59)
[2017-07-17] MEDS: NYSTATIN 100,000 UNIT/GM POWD 15 GM TOPICAL SCH ×3 (08:00→21:37)
[2017-07-17] MEDS: cefTRIAXone IN SWFI 1,000 MG/10 ML SYRINGE IVP SCH (08:00)
[2017-07-17 11:22] LABS: Glucose,Whole Blood 257 mg/dL (75-99)
--- NOTE | 2017-07-17 13:28 | P.PN ---
Subjective Progress Note Date: 07/17/17 Principal diagnosis: Acute community acquired pneumonia, COPD exacerbation, and acute on chronic diastolic congestive heart failure with preserved ejection fraction of 55-60% Bindu is a 66-year-old white female patient of Dr. Radha Quan, who presented to the emergency department on 07/15/2017 at 1343 with complaints of increasing shortness of breath, increasing swelling in her bilateral lower extremities, and abdominal wall, weight gain of 10 pounds over the course of 2 weeks, cough, increasing orthopnea, and exertional dyspnea. Patient denied any fever, denied any chills, she stated her cough was mostly dry, did bring up some small amount of yellow sputum initially, but now it is nonproductive. Patient does have an underlying history of congestive heart failure, chronic A. fib, coronary artery disease, diabetes mellitus type 2, hypertension, hyperlipidemia, hypothyroidism, and asthma. In addition she has a history of obstructive sleep apnea, however has not been able to tolerate the CPAP machine mask, therefore has been noncompliant with the treatment. Patient is a lifetime nonsmoker, was exposed to secondhand smoke from her parents and her spouse for an extended period of time. Was told in the past that she has an underlying history of COPD, her maintenance inhalers include Symbicort and DuoNeb nebulized treatments. Does not normally wear oxygen. Patient has been afebrile while inpatient, hemodynamically stable, currently in sinus rhythm. Lab work did not show any evidence of leukocytosis, WBC was 9.3 on admission, hemoglobin is 12.2, INR is 2.6, patient is on Coumadin for anticoagulation for her history of A. fib, electrolytes were within normal limits, BUN was 60, creatinine was 1.65, CK-MB was 3.1, troponin was negative 1, proBNP was 2170. Urinalysis was within normal limits. Chest x-ray showed new right middle lobe opacity that could represent atelectasis or pneumonia, cardiomegaly, and pulmonary vascular congestion/interstitial edema on the bases of congestive heart failure. Patient was started on a combination of Zithromax, and Rocephin , Lasix 40 mg every 8 hours IV, Symbicort, DuoNeb, and admitted for further management. On 07/17/2017 patient was seen in follow-up. She reports her breathing improved. The swelling in her bilateral lower extremity remains, but improving. Patient has been afebrile, remains on 2 L per nasal cannula with O2 sat at 94%. Lung sounds are clear to auscultation, no rales, no rhonchi or wheezing noted. Blood cultures remain negative. Patient continues on Zithromax , Rocephin, Symbicort, DuoNeb. Her weight is down 9.3 kg since admission. Patient remains on IV diuretics in the form of Lasix 40 mg IV every 8 hours. Objective - Vital Signs Vital signs: Vital Signs Temp 98.1 F 07/17/17 07:00 Pulse 65 07/17/17 10:23 Resp 18 07/17/17 07:00 BP 108/59 07/17/17 10:23 Pulse Ox 94 L 07/17/17 07:00 Intake & Output 07/16/17 07/17/17 07/17/17 18:59 06:59 18:59 Intake Total 660 600 Balance 660 600 Weight 128.7 kg Intake: IV 160 Sodium Chloride 0.9% 1, 160 000 ml @ 20 mls/hr IV . Q24H STA Rx#:[id number] Oral 500 600 Other: Voiding Method Toilet Toilet # Voids 2 1 1 - Exam GENERAL EXAM: Alert, pleasant, 66-year-old obese white female, comfortable in no apparent distress. HEAD: Normocephalic/atraumatic. EYES: Normal reaction of pupils, equal size. Conjunctiva pink, sclera white. NOSE: Clear with pink turbinates. THROAT: No erythema or exudates. NECK: No masses, no JVD, no thyroid enlargement, no adenopathy. CHEST: No chest wall deformity. Symmetrical expansion. LUNGS: Equal air entry with no crackles, wheeze, rhonchi or dullness. Diminished air entry noted bilaterally CVS: Regular rate and rhythm, normal S1 and S2, no gallops, no murmurs, no rubs ABDOMEN: Soft, nontender. No hepatosplenomegaly, normal bowel sounds, no guarding or rigidity. EXTREMITIES: No clubbing, mild nonpitting pretibial, ankle edema, no cyanosis, 2 + pulses and upper and lower extremities. MUSCULOSKELETAL: Muscle strength and tone normal. SPINE: No scoliosis or deformity SKIN: No rashes CENTRAL NERVOUS SYSTEM: Alert and oriented -3. No focal deficits, tone is normal in all 4 extremities. PSYCHIATRIC: Alert and oriented -3. Appropriate affect. Intact judgment and insight. - Labs CBC & Chem 7: 07/17/17 06:52 07/17/17 06:52 Labs: Abnormal Lab Results - Last 24 Hours (Table) 07/16/17 07/16/17 07/17/17 Range/Units 17:33 20:12 06:52 RDW 15.7 H (11.5-15.5) % PT (9.0-12.0) sec INR (<1.2) Carbon Dioxide (22-30) mmol/L BUN (7-17) mg/dL Creatinine (0.52-1.04) mg/dL POC Glucose (mg/dL) 154 H 219 H (75-99) mg/dL 07/17/17 07/17/17 07/17/17 Range/Units 06:52 06:52 11:17 RDW (11.5-15.5) % PT 26.3 H (9.0-12.0) sec INR 2.9 H (<1.2) Carbon Dioxide 36 H (22-30) mmol/L BUN 36 H (7-17) mg/dL Creatinine 1.26 H (0.52-1.04) mg/dL POC Glucose (mg/dL) 257 H (75-99) mg/dL Microbiology - Last 24 Hours (Table) 07/15/17 17:32 Blood Culture - Preliminary Blood No Growth after 24 hours 07/15/17 17:41 Blood Culture - Preliminary Blood No Growth after 24 hours Assessment and Plan Plan: Assessment: #1. Acute on chronic diastolic congestive heart failure with preserved ejection fraction of 55-60%, based on the 2-D echo from 11/14/2016 #2. Acute, community acquired pneumonia and acute COPD exacerbation #3. Acute on chronic kidney failure, stage III #4. Severe obstructive sleep apnea, with an AHI of 92, noncompliant with BiPAP therapy, which was prescribed at a pressure of 22/18 cm of water #5. Morbid obesity #6. History of paroxysmal atrial fibrillation, currently in sinus rhythm, on chronic anticoagulation with Coumadin with therapeutic INR on admission at 2.6 #7. Previous cardioversion for atrial fibrillation, the patient is currently on amiodarone #8. Diabetes mellitus type 2 #9. History of chronic bronchial asthma #10. Hypertension, hyperlipidemia #11. Hypothyroidism Plan: Continue current antibiotic coverage, Zithromax and Rocephin, continue DuoNeb nebulized treatments, Symbicort. We'll decrease the Lasix down to 40 mg every 12 hours. Patient is developing volume contraction alkalosis. Obtain repeat chest x-ray in the morning. I performed a history & physical examination of the patient and discussed their management with my nurse practitioner, Tracie Quiñonez. I reviewed the nurse practitioner's note and agree with the documented findings and plan of care. Lung sounds are positive for diminished lung sounds bilaterally. The findings and the impression was discussed with the patient. I attest to the documentation by the nurse practitioner. Time with Patient: Less than 30
--- NOTE | 2017-07-17 14:59 | PN ---
PROGRESS NOTE DATE OF SERVICE: 07/17/2017 This 66-year-old woman who was admitted with COPD acute exacerbation as well as right middle lobe pneumonia is being closely monitored. Patient has significant wheezing and cough also. Pulmonary, Dr. Worley following the patient. No chest pain. No palpitations. No fever. EXAM: Alert and oriented x3. Pulse is 61, blood pressure 153/72, respiration 18, temperature 98.1, pulse ox 94% on 2 L. HEENT: Conjunctivae normal. NECK: No jugular venous distention. CARDIOVASCULAR: S1, S2. RESPIRATORY: Breath sounds diminished in the bases. A few scattered rhonchi and crackles. ABDOMEN: Soft, nontender. No mass palpable. LEGS: No edema. NERVOUS SYSTEM: No focal deficits. LABS: CBC within normal. INR is 2.9, creatinine is 1.26. ASSESSMENT: 1. Chronic obstructive pulmonary disease acute exacerbation with acute right middle lobe pneumonia possibly gram-negative. 2. Diabetes mellitus type 2. 3. Hypertension. 4. Chronic kidney disease stage III. 5. History of asthma. 6. History of coronary artery disease. 7. History of congestive heart failure. 8. Hypertension. 9. Hyperlipidemia. 10.Hypothyroidism. 11.History atrial fibrillation. 12.History of sepsis. 13.Obstructive sleep apnea. 14.History of CPAP. 15.History of chronic hypoxic respiratory failure. RECOMMENDATIONS AND DISCUSSION: Continue current management and symptomatic treatment. Otherwise at this time I would continue the broad-spectrum IV antibiotics. Monitor creatinine closely. Otherwise closely follow with Pulmonary. Guarded prognosis. Further recommendations to follow. See orders for details. MMODL / IJN: [id number] /
[2017-07-17 17:28] LABS: Glucose,Whole Blood 210 mg/dL (75-99)
[2017-07-17] MEDS: WARFARIN 5 MG TAB PO SCH (17:54)
[2017-07-17 20:57] LABS: Glucose,Whole Blood 201 mg/dL (75-99)
[2017-07-17] MEDS: ATORVASTATIN 40 MG TAB PO SCH (21:31)
[2017-07-17] MEDS: INSULIN DETEMIR 100 UNIT/ML 10 ML VIAL SQ SCH (21:32)
[2017-07-18] MEDS: LEVOTHYROXINE 100 MCG TAB PO SCH (06:06)
[2017-07-18 07:10] LABS: Glucose,Whole Blood 148 mg/dL (75-99)
[2017-07-18] MEDS: cefTRIAXone IN SWFI 1,000 MG/10 ML SYRINGE IVP SCH (07:46)
[2017-07-18] MEDS: INSULIN ASPART 100 UNIT/ML 1 ML 10 ML VIAL SQ SCH ×4 (07:58→12:50)
[2017-07-18] MEDS: AMIODARONE 200 MG TAB PO SCH (08:01)
[2017-07-18] MEDS: AZITHROMYCIN 500 MG TAB PO SCH (08:01)
[2017-07-18] MEDS: FERROUS SULFATE 325 MG TAB PO SCH (08:02)
[2017-07-18] MEDS: LORATADINE 10 MG TAB PO SCH (08:02)
[2017-07-18] MEDS: LISINOPRIL 10 MG TAB PO SCH (08:02)
[2017-07-18] MEDS: METOPROLOL TARTRATE 50 MG TAB PO SCH (08:02)
[2017-07-18] MEDS: FAMOTIDINE 20 MG TAB PO SCH (08:02)
[2017-07-18] MEDS: NYSTATIN 100,000 UNIT/GM POWD 15 GM TOPICAL SCH ×2 (08:03→08:09)
[2017-07-18 08:10] LABS: Basophils % (A) 1 %; Eosinophils # (A) 0.2 k/uL (0-0.7); Eosinophils % (A) 3 %; HCT 40.5 % (34.0-46.0); HGB 13.1 gm/dL (11.4-16.0); Lymphocytes # (A) 1.3 k/uL (1.0-4.8); Lymphocytes % (A) 19 %; MCH 28.7 pg (25.0-35.0); MCHC 32.3 g/dL (31.0-37.0); MCV 88.9 fL (80.0-100.0); Mean Platelet Volume 8.1; Monocytes # (A) 0.5 k/uL (0-1.0); Monocytes % (A) 7 %; Neutrophils # (A) 4.7 k/uL (1.3-7.7); Neutrophils % (A) 68 %; Platelet Count 191 k/uL (150-450); RBC 4.55 m/uL (3.80-5.40); RDW 15.5 % (11.5-15.5); WBC 6.9 k/uL (3.8-10.6)
[2017-07-18 08:22] VITALS: BP 146/68; RESP 17; TEMP 96.8
--- NOTE | 2017-07-18 08:34 | XR ---
EXAMINATION TYPE: XR chest 2V DATE OF EXAM: 07/18/2017 COMPARISON: 07/16/2017 HISTORY: Congestive heart failure pneumonia TECHNIQUE: Frontal and lateral views of the chest are obtained. FINDINGS: There is an unchanged right middle lobe opacity that appears as confluence of engorged pul monary vascular and today's examination. Mild pulmonary vascular congestion and interstitial edema is seen throughout. No sizable pleural effusion or pneumothorax. Osseous structures are grossly intact with moderate multilevel degenerative changes of the thoracic spine. IMPRESSION: Right middle lobe opacity appears is engorged hilar vasculature on today's examination a nd corresponds to the mild interstitial edema and pulmonary vascular congestion seen throughout the r emainder the lungs. Findings are most suspicious for sequela of decompensated congestive heart failur e.
[2017-07-18 08:42] LABS: Calcium 8.7 mg/dL (8.4-10.2); Potassium 3.7 mmol/L (3.5-5.1)
[2017-07-18 08:51] LABS: INR 2.6 (<1.2); Prothrombin Time 23.2 sec (9.0-12.0)
[2017-07-18] MEDS: IPRATROPIUM-ALBUTEROL 3 ML NEB INHALATION SCH ×2 (09:21→13:16)
[2017-07-18] MEDS: FUROSEMIDE 10 MG/ML 4 ML VIAL IV SCH (09:30)
[2017-07-18] MEDS: SYMBICORT 160-4.5 MCG INHALER INHALATION SCH (09:32)
[2017-07-18] MEDS ORDERED: FUROSEMIDE 40 MG TAB PO SCH (10:00)
[2017-07-18 11:25] LABS: Glucose,Whole Blood 214 mg/dL (75-99)
[2017-07-18 13:28] VITALS: PULSE 62
--- NOTE | 2017-07-18 13:36 | DS ---
DISCHARGE SUMMARY FINAL DIAGNOSES: 1. Chronic obstructive pulmonary disease acute exacerbation with acute right middle lobe pneumonia possibly gram-negative, improved. 2. Diabetes mellitus type 2. 3. Hypertension. 4. Chronic kidney disease stage 3. 5. History of asthma. 6. History of coronary artery disease. 7. History of congestive heart failure. 8. Hypertension. 9. Hyperlipidemia. 10.Hypothyroidism. 11.History atrial fibrillation. 12.History of sepsis. 13.History of obstructive sleep apnea. 14.History of CPAP. 15.History of chronic hypoxic respiratory failure. 16.History of aortic stenosis. DISCHARGE DISPOSITION: The patient will be discharged in stable condition with guarded prognosis. Dr. Worley cleared the patient for discharge. HISTORY OF PRESENT ILLNESS: This 66-year-old woman with a past medical history of multiple medical problems admitted with COPD acute exacerbation and right middle lobe pneumonia. Patient treated with bronchodilators, antibiotics, improved significantly. Diuretics also continued. A 2-D echo was ordered. The patient improved significantly and Dr. Worley cleared the patient for discharge. On exam, vitals are stable. CARDIOVASCULAR: S1 and S2 muffled. RESPIRATORY: A few scattered rhonchi. ABDOMEN: Soft. NERVOUS SYSTEM: No focal deficits. DISCHARGE ADVICE: 1. Diet is cardiac, no added salt. 2. Follow up with Dr. Quan in 2 to 3 days. 3. Follow up with Dr. Worley and as well as Cardiology as recommended. Medications will be: 1. Ventolin 2 puffs p.r.n. 2. Cordarone 200 mg p.o. daily. 3. Lipitor 40 mg q.h.s. 4. Zithromax 500 mg p.o. daily for 5 days. 5. Symbicort 1 puff b.i.d. 6. Ceftin 500 mg p.o. b.i.d. for 5 days. 7. Iron sulfate 325 mg p.o. b.i.d. 8. Lasix 40 mg p.o. b.i.d. 9. Lantus 45 units subcu q.h.s. 10.Apidra 8 units subcu t.i.d. 11.Albuterol and Atrovent updrafts q.i.d. and p.r.n. 12.Synthroid 100 mcg p.o. daily. 13.Zestril 10 mg p.o. b.i.d. 14.Claritin 10 mg p.o. daily. 15.Lopressor 50 mg p.o. b.i.d. 16.Nystatin daily. 17.MiraLAX 17 grams daily. 18.Ranitidine 150 mg p.o. b.i.d. 19.Coumadin 5 mg p.o. Sunday, Sunday, Sunday, Sunday, , Sunday and 2.5 mg on Sunday. MMCLIFFORDL / IJN: [id number] /
--- NOTE | 2017-07-18 15:05 | P.PN ---
Subjective Progress Note Date: 07/18/17 Principal diagnosis: Acute community acquired pneumonia, COPD exacerbation, and acute on chronic diastolic congestive heart failure with preserved ejection fraction of 55-60% Bindu is a 66-year-old white female patient of Dr. Radha Quan, who presented to the emergency department on 07/15/2017 at 1343 with complaints of increasing shortness of breath, increasing swelling in her bilateral lower extremities, and abdominal wall, weight gain of 10 pounds over the course of 2 weeks, cough, increasing orthopnea, and exertional dyspnea. Patient denied any fever, denied any chills, she stated her cough was mostly dry, did bring up some small amount of yellow sputum initially, but now it is nonproductive. Patient does have an underlying history of congestive heart failure, chronic A. fib, coronary artery disease, diabetes mellitus type 2, hypertension, hyperlipidemia, hypothyroidism, and asthma. In addition she has a history of obstructive sleep apnea, however has not been able to tolerate the CPAP machine mask, therefore has been noncompliant with the treatment. Patient is a lifetime nonsmoker, was exposed to secondhand smoke from her parents and her spouse for an extended period of time. Was told in the past that she has an underlying history of COPD, her maintenance inhalers include Symbicort and DuoNeb nebulized treatments. Does not normally wear oxygen. Patient has been afebrile while inpatient, hemodynamically stable, currently in sinus rhythm. Lab work did not show any evidence of leukocytosis, WBC was 9.3 on admission, hemoglobin is 12.2, INR is 2.6, patient is on Coumadin for anticoagulation for her history of A. fib, electrolytes were within normal limits, BUN was 60, creatinine was 1.65, CK-MB was 3.1, troponin was negative 1, proBNP was 2170. Urinalysis was within normal limits. Chest x-ray showed new right middle lobe opacity that could represent atelectasis or pneumonia, cardiomegaly, and pulmonary vascular congestion/interstitial edema on the bases of congestive heart failure. Patient was started on a combination of Zithromax, and Rocephin , Lasix 40 mg every 8 hours IV, Symbicort, DuoNeb, and admitted for further management. On 07/17/2017 patient was seen in follow-up. She reports her breathing improved. The swelling in her bilateral lower extremity remains, but improving. Patient has been afebrile, remains on 2 L per nasal cannula with O2 sat at 94%. Lung sounds are clear to auscultation, no rales, no rhonchi or wheezing noted. Blood cultures remain negative. Patient continues on Zithromax , Rocephin, Symbicort, DuoNeb. Her weight is down 9.3 kg since admission. Patient remains on IV diuretics in the form of Lasix 40 mg IV every 8 hours. On 07/18/2017 patient seen in follow-up. Lung sounds are clear, she denies any acute distress. Her peripheral edema is improving. She still has some residual pedal and pretibial edema. On room air her pulse ox was 97%. She is hemodynamically stable, she is afebrile. Repeat chest x-ray was reviewed, and shows right middle lobe opacity, with mild interstitial edema and pulmonary vessel congestion, may be slightly improved from previous exam. Clinically patient reports improvement in her dyspnea. She has been able to tolerate ambulation. No acute events overnight. Denies worsening dyspnea. The cultures remain negative. And pulmonary standpoint patient is stable for discharge home today on outpatient course of antibiotics, her maintenance inhalers and nebulized treatments. Follow-up with Dr. Worley in the office in one week. Objective - Vital Signs Vital signs: Vital Signs Temp 96.8 F L 07/18/17 07:25 Pulse 62 07/18/17 13:28 Resp 17 07/18/17 08:45 BP 146/68 07/18/17 07:25 Pulse Ox 97 07/17/17 21:36 Intake & Output 07/17/17 07/18/17 07/18/17 18:59 06:59 18:59 Intake Total 1440 1290 2040 Balance 1440 1290 2040 Weight 130 kg Intake: Oral 1440 1290 2040 Other: Voiding Method Toilet Toilet Toilet # Voids 2 2 3 - Exam GENERAL EXAM: Alert, pleasant, 66-year-old obese white female, comfortable in no apparent distress. HEAD: Normocephalic/atraumatic. EYES: Normal reaction of pupils, equal size. Conjunctiva pink, sclera white. NOSE: Clear with pink turbinates. THROAT: No erythema or exudates. NECK: No masses, no JVD, no thyroid enlargement, no adenopathy. CHEST: No chest wall deformity. Symmetrical expansion. LUNGS: Equal air entry with no crackles, wheeze, rhonchi or dullness. Diminished air entry noted bilaterally CVS: Regular rate and rhythm, normal S1 and S2, no gallops, no murmurs, no rubs ABDOMEN: Soft, nontender. No hepatosplenomegaly, normal bowel sounds, no guarding or rigidity. EXTREMITIES: No clubbing, mild nonpitting pretibial, ankle and pedal edema, no cyanosis, 2+ pulses and upper and lower extremities. MUSCULOSKELETAL: Muscle strength and tone normal. SPINE: No scoliosis or deformity SKIN: No rashes CENTRAL NERVOUS SYSTEM: Alert and oriented -3. No focal deficits, tone is normal in all 4 extremities. PSYCHIATRIC: Alert and oriented -3. Appropriate affect. Intact judgment and insight. - Labs CBC & Chem 7: 07/18/17 07:16 07/18/17 07:16 Labs: Abnormal Lab Results - Last 24 Hours (Table) 07/17/17 07/17/17 07/18/17 Range/Units 17:21 20:36 07:07 PT (9.0-12.0) sec INR (<1.2) Chloride (98-107) mmol/L Carbon Dioxide (22-30) mmol/L BUN (7-17) mg/dL Creatinine (0.52-1.04) mg/dL Glucose (74-99) mg/dL POC Glucose (mg/dL) 210 H 201 H 148 H (75-99) mg/dL 07/18/17 07/18/17 07/18/17 Range/Units 07:16 07:16 11:24 PT 23.2 H (9.0-12.0) sec INR 2.6 H (<1.2) Chloride 97 L (98-107) mmol/L Carbon Dioxide 37 H (22-30) mmol/L BUN 30 H (7-17) mg/dL Creatinine 1.21 H (0.52-1.04) mg/dL Glucose 136 H (74-99) mg/dL POC Glucose (mg/dL) 214 H (75-99) mg/dL Microbiology - Last 24 Hours (Table) 07/15/17 17:32 Blood Culture - Preliminary Blood No Growth after 48 hours 07/15/17 17:41 Blood Culture - Preliminary Blood No Growth after 48 hours Assessment and Plan Plan: Assessment: #1. Acute on chronic diastolic congestive heart failure with preserved ejection fraction of 55-60%, based on the 2-D echo from 11/14/2016 #2. Acute, community acquired pneumonia and acute COPD exacerbation #3. Acute on chronic kidney failure, stage III #4. Severe obstructive sleep apnea, with an AHI of 92, noncompliant with BiPAP therapy, which was prescribed at a pressure of 22/18 cm of water #5. Morbid obesity #6. History of paroxysmal atrial fibrillation, currently in sinus rhythm, on chronic anticoagulation with Coumadin with therapeutic INR on admission at 2.6 #7. Previous cardioversion for atrial fibrillation, the patient is currently on amiodarone #8. Diabetes mellitus type 2 #9. History of chronic bronchial asthma #10. Hypertension, hyperlipidemia #11. Hypothyroidism Plan: Repeat chest x-ray was reviewed, the appearance of the right middle lobe opacity , with mild interstitial and pulmonary vascular congestion remained for the most part stable, if not slightly improved. Patient reports improvement in her dyspnea, she is currently on room air. No fevers, no chills, no chest congestion. From pulmonary standpoint she is stable for discharge home today, on an outpatient course of antibiotics, and her maintenance inhalers and nebulizer treatments. Follow-up with Dr. Worley in the office in one week I performed a history & physical examination of the patient and discussed their management with my nurse practitioner, Tracie Quiñonez. I reviewed the nurse practitioner's note and agree with the documented findings and plan of care. Lung sounds are positive for diminished lung sounds bilaterally. The findings and the impression was discussed with the patient. I attest to the documentation by the nurse practitioner. Time with Patient: Less than 30
== END 2017-07-18 15:00 | disposition home or self-care (01) | DRG 177 ==
LOC: EC 13:43 → 5MS5E 16:01
PROVIDERS: ADMIT Hospitalist; ATTEND Hospitalist
DX: J15.6 Pneumonia due to other Gram-negative bacteria (principal); I50.33 Acute on chronic diastolic (congestive) heart failure; J96.11 Chronic respiratory failure with hypoxia; E11.22 Type 2 diabetes mellitus with diabetic chronic kidney disease; N17.9 Acute kidney failure, unspecified; I13.0 Hypertensive heart and chronic kidney disease with heart failure and stage 1 through stage 4 chronic kidney disease, or unspecified chronic kidney disease; J44.0 Chronic obstructive pulmonary disease with (acute) lower respiratory infection; J44.1 Chronic obstructive pulmonary disease with (acute) exacerbation; Z68.43 Body mass index [BMI] 50.0-59.9, adult; E66.01 Morbid (severe) obesity due to excess calories; E03.9 Hypothyroidism, unspecified; E78.5 Hyperlipidemia, unspecified; G47.33 Obstructive sleep apnea (adult) (pediatric); I25.10 Atherosclerotic heart disease of native coronary artery without angina pectoris; I35.0 Nonrheumatic aortic (valve) stenosis; I48.0 Paroxysmal atrial fibrillation; I48.2 Chronic atrial fibrillation; N18.3 Chronic kidney disease, stage 3 (moderate); Z77.22 Contact with and (suspected) exposure to environmental tobacco smoke (acute) (chronic); Z79.01 Long term (current) use of anticoagulants; Z79.4 Long term (current) use of insulin; Z79.51 Long term (current) use of inhaled steroids; Z79.899 Other long term (current) drug therapy; Z80.1 Family history of malignant neoplasm of trachea, bronchus and lung; Z91.19 Patient's noncompliance with other medical treatment and regimen; Z99.81 Dependence on supplemental oxygen; Z79.890 Hormone replacement therapy
CPT/HCPCS: 36415; 71046; 80048; 80053; 81003; 82550; 82553; 83036; 83735; 83880; 84484; 85025; 85610; 85730; 87040; 87070; 87205; 87502; 93005; 93306; 94640; 96374; 96375; 99285

== ENCOUNTER 2017-08-16 10:35 | Inpatient (IN) | payer OTHER ==
[2017-08-16] MEDS ORDERED: FUROSEMIDE 10 MG/ML 4 ML VIAL IV STA (10:53)
--- NOTE | 2017-08-16 11:00 | ED ---
General Adult HPI - General Chief complaint: Recheck/Abnormal Lab/Rx Stated complaint: fluid retention Time Seen by Provider: 08/16/17 10:40 Source: EMS, RN notes reviewed Mode of arrival: EMS Limitations: no limitations - History of Present Illness Initial comments: This a 66-year-old female with a past medical history significant for congestive heart failure. Patient comes in today because she states she's gain weight. Patient also is complaining of increased ability breathing. Patient states his transport over the last day and a half. Patient denies any fever chills or cough. Patient denies chest pain pressure or palpitations. Patient denies headache patient denies numbness weakness. Patient denies any lightheadedness dizziness or near syncopal episode. Patient denies abdominal pain patient denies nausea vomiting or diarrhea. - Related Data Home Medications Medication Instructions Recorded Confirmed Ferrous Sulfate [Feosol] 325 mg PO BID 07/14/14 08/16/17 Ranitidine HCl 150 mg PO BID 07/14/14 08/16/17 Atorvastatin [Lipitor] 40 mg PO HS 09/28/15 08/16/17 Budesonide/Formoterol Fumarate 1 puff INHALATION RT-BID 04/02/16 08/16/17 [Symbicort 160-4.5 Mcg Inhaler] Insulin Glulisine [Apidra Solostar] 8 unit SQ TID-W/MEALS 04/02/16 08/16/17 Albuterol Inhaler [Ventolin Hfa 2 puff INHALATION RT-Q6H PRN 11/13/16 08/16/17 Inhaler] Ipratropium-Albuterol Nebulize 3 ml INHALATION RT-TID PRN 01/13/17 08/16/17 [Duoneb 0.5 mg-3 mg/3 ml Soln] Warfarin [Coumadin] 2.5 mg PO SA 01/15/17 08/16/17 Warfarin [Coumadin] 5 mg PO SUMOTUWETHFR 01/15/17 08/16/17 Amiodarone [Cordarone] 100 mg PO DAILY 02/16/17 08/16/17 Furosemide [Lasix] 40 mg PO BID 02/16/17 08/16/17 Levothyroxine Sodium [Synthroid] 100 mcg PO DAILY 02/16/17 08/16/17 Loratadine [Claritin] 10 mg PO DAILY 05/03/17 08/16/17 Insulin Glargine [Lantus] 45 unit SQ HS 07/15/17 08/16/17 Nystatin 100,000 Unit/gm Powd 1 applic TOPICAL TID 07/15/17 08/16/17 [Mycostatin Powder] Polyethylene Glycol 3350 [Miralax] 17 gm PO DAILY PRN 07/15/17 08/16/17 Previous Rx's Medication Instructions Recorded Metoprolol Tartrate [Lopressor] 50 mg PO BID #60 tab 10/08/15 Lisinopril [Zestril] 10 mg PO BID #60 tab 07/18/17 Allergies Allergy/AdvReac Type Severity Reaction Status Date / Time No Known Allergies Allergy Verified 08/16/17 12:12 Review of Systems ROS Statement: Those systems with pertinent positive or pertinent negative responses have been documented in the HPI. ROS Other: All systems not noted in ROS Statement are negative. Past Medical History Past Medical History: Atrial Fibrillation, Asthma, Coronary Artery Disease (CAD) , Chest Pain / Angina, Heart Failure, Diabetes Mellitus, Hyperlipidemia, Hypertension, Thyroid Disorder Additional Past Medical History / Comment(s): Severe obstructive sleep apnea- does not tolerate CPAP-wears O2 at 3L/NC at hs, pulmonary htn, morbid obesity, history of cellulitis right lower extremity-healed, hypothyroidism. She also has aortic valve stenosis with a potential of bicuspid versus tricuspid aortic valve and a previous ejection fraction of 45%, lower extremity edema History of Any Multi-Drug Resistant Organisms: None Reported Past Surgical History: Appendectomy, Cholecystectomy, Heart Catheterization, Hernia Repair Additional Past Surgical History / Comment(s): 11/03/15 TIMOTHY with cardioversion, cardiac cath, ROSANGELA CATARACTS Past Anesthesia/Blood Transfusion Reactions: No Reported Reaction Past Psychological History: No Psychological Hx Reported Smoking Status: Never smoker Past Alcohol Use History: None Reported Past Drug Use History: None Reported - Past Family History Mother Family Medical History: Cancer Additional Family Medical History / Comment(s): SKIN AND LUNG CANCER "MESOTHELIOMA" Father Family Medical History: CVA/TIA General Exam - General Exam Comments Initial Comments: GENERAL: Patient is well-developed and well-nourished. Patient is nontoxic and well- hydrated and is in mild distress. ENT: Neck is soft and supple. No significant lymphadenopathy is noted. Oropharynx is clear. Moist mucous membranes. Neck has full range of motion without eliciting any pain. EYES: The sclera were anicteric and conjunctiva were pink and moist. Extraocular movements were intact and pupils were equal round and reactive to light. Eyelids were unremarkable. PULMONARY: Unlabored respirations. Good breath sounds bilaterally. No audible rales rhonchi or wheezing was noted. CARDIOVASCULAR: There is a regular rate and rhythm without any murmurs gallops or rubs. ABDOMEN: Soft and nontender with normal bowel sounds. No palpable organomegaly was noted. There is no palpable pulsatile mass. SKIN: Skin is clear with no lesions or rashes and otherwise unremarkable. NEUROLOGIC: Patient is alert and oriented x3. Cranial nerves II through XII are grossly intact. Motor and sensory are also intact. Normal speech, volume and content. Symmetrical smile. MUSCULOSKELETAL: Normal extremities with adequate strength and full range of motion. 2+ edema bilaterally LYMPHATICS: No significant lymphadenopathy is noted PSYCHIATRIC: Normal psychiatric evaluation. Limitations: no limitations Course Vital Signs 08/16/17 08/16/17 08/16/17 10:42 11:47 12:32 Temperature 96.9 F L Pulse Rate 62 61 59 L Respiratory 18 18 16 Rate Blood Pressure 121/57 138/64 143/66 O2 Sat by Pulse 95 99 99 Oximetry 08/16/17 08/16/17 14:04 15:47 Temperature Pulse Rate 58 L 56 L Respiratory 18 18 Rate Blood Pressure 124/63 122/74 O2 Sat by Pulse 98 97 Oximetry Medical Decision Making - Medical Decision Making EKG shows a normal sinus rhythm at 61 bpm OH interval is 170 QRS is 128 QT interval is 462 QTC is 465. Patient's EKG shows no ST segment elevation or depression no T-wave abnormalities. Chest x-ray shows pulmonary edema. The patient received Lasix and nitro presents emergency department. Patient was feeling slightly better however the patient needed to be admitted. I spoke with Dr. Mancuso and he agreed to admit the patient admitted the patient wrote admitting orders I continued Lasix Nitropaste on the floor. I consult to cardiology. - Lab Data Result diagrams: 08/16/17 10:55 08/16/17 10:55 Lab Results 08/16/17 08/16/17 08/16/17 Range/Units 10:55 10:55 10:55 WBC 8.5 (3.8-10.6) k/uL RBC 4.65 (3.80-5.40) m/uL Hgb 13.4 (11.4-16.0) gm/dL Hct 42.3 (34.0-46.0) % MCV 90.9 (80.0-100.0) fL MCH 28.8 (25.0-35.0) pg MCHC 31.7 (31.0-37.0) g/dL RDW 15.4 (11.5-15.5) % Plt Count 188 (150-450) k/uL Neutrophils % 73 % Lymphocytes % 17 % Monocytes % 6 % Eosinophils % 2 % Basophils % 0 % Neutrophils # 6.2 (1.3-7.7) k/uL Lymphocytes # 1.4 (1.0-4.8) k/uL Monocytes # 0.5 (0-1.0) k/uL Eosinophils # 0.2 (0-0.7) k/uL Basophils # 0.0 (0-0.2) k/uL Hypochromasia Slight PT (9.0-12.0) sec INR (<1.2) APTT (22.0-30.0) sec Sodium 145 (137-145) mmol/L Potassium 5.1 (3.5-5.1) mmol/L Chloride 105 (98-107) mmol/L Carbon Dioxide 26 (22-30) mmol/L Anion Gap 14 mmol/L BUN 61 H (7-17) mg/dL Creatinine 1.70 H (0.52-1.04) mg/dL Est GFR (CKD-EPI)AfAm 36 (>60 ml/min/1.73 sqM) Est GFR (CKD-EPI)NonAf 32 (>60 ml/min/1.73 sqM) Glucose 216 H (74-99) mg/dL Estimated Ave Glu mg/dL Hemoglobin A1c (4.0-6.0) % Calcium 8.6 (8.4-10.2) mg/dL Magnesium 2.3 (1.6-2.3) mg/dL Total Bilirubin 0.5 (0.2-1.3) mg/dL AST 38 H (14-36) U/L ALT 34 (9-52) U/L Alkaline Phosphatase 157 H (38-126) U/L Total Creatine Kinase 148 H (30-135) U/L CK-MB (CK-2) 2.2 (0.0-2.4) ng/mL CK-MB (CK-2) Rel Index 1.5 Troponin I <0.012 (0.000-0.034) ng/mL NT-Pro-B Natriuret Pep pg/mL Total Protein 5.8 L (6.3-8.2) g/dL Albumin 3.4 L (3.5-5.0) g/dL 08/16/17 08/16/17 08/16/17 Range/Units 10:55 10:55 10:55 WBC (3.8-10.6) k/uL RBC (3.80-5.40) m/uL Hgb (11.4-16.0) gm/dL Hct (34.0-46.0) % MCV (80.0-100.0) fL MCH (25.0-35.0) pg MCHC (31.0-37.0) g/dL RDW (11.5-15.5) % Plt Count (150-450) k/uL Neutrophils % % Lymphocytes % % Monocytes % % Eosinophils % % Basophils % % Neutrophils # (1.3-7.7) k/uL Lymphocytes # (1.0-4.8) k/uL Monocytes # (0-1.0) k/uL Eosinophils # (0-0.7) k/uL Basophils # (0-0.2) k/uL Hypochromasia PT 18.5 H (9.0-12.0) sec INR 2.0 H (<1.2) APTT 28.3 (22.0-30.0) sec Sodium (137-145) mmol/L Potassium (3.5-5.1) mmol/L Chloride (98-107) mmol/L Carbon Dioxide (22-30) mmol/L Anion Gap mmol/L BUN (7-17) mg/dL Creatinine (0.52-1.04) mg/dL Est GFR (CKD-EPI)AfAm (>60 ml/min/1.73 sqM) Est GFR (CKD-EPI)NonAf (>60 ml/min/1.73 sqM) Glucose (74-99) mg/dL Estimated Ave Glu mg/dL 200 Hemoglobin A1c 8.6 H (4.0-6.0) % Calcium (8.4-10.2) mg/dL Magnesium (1.6-2.3) mg/dL Total Bilirubin (0.2-1.3) mg/dL AST (14-36) U/L ALT (9-52) U/L Alkaline Phosphatase (38-126) U/L Total Creatine Kinase (30-135) U/L CK-MB (CK-2) (0.0-2.4) ng/mL CK-MB (CK-2) Rel Index Troponin I (0.000-0.034) ng/mL NT-Pro-B Natriuret Pep 1740 pg/mL Total Protein (6.3-8.2) g/dL Albumin (3.5-5.0) g/dL Critical Care Time Critical Care Time: Yes Total Critical Care Time: 35 Disposition Clinical Impression: Acute pulmonary edema Disposition: ADMITTED IP TO THIS HOSP Is patient prescribed a controlled substance at d/c from ED?: No Time of Disposition: 12:42
[2017-08-16 11:10] LABS: Basophils % (A) 0 %; Eosinophils # (A) 0.2 k/uL (0-0.7); Eosinophils % (A) 2 %; HCT 42.3 % (34.0-46.0); HGB 13.4 gm/dL (11.4-16.0); Hypochromasia Slight; Lymphocytes # (A) 1.4 k/uL (1.0-4.8); Lymphocytes % (A) 17 %; MCH 28.8 pg (25.0-35.0); MCHC 31.7 g/dL (31.0-37.0); MCV 90.9 fL (80.0-100.0); Monocytes # (A) 0.5 k/uL (0-1.0); Monocytes % (A) 6 %; Neutrophils # (A) 6.2 k/uL (1.3-7.7); Neutrophils % (A) 73 %; Platelet Count 188 k/uL (150-450); RBC 4.65 m/uL (3.80-5.40); RDW 15.4 % (11.5-15.5); WBC 8.5 k/uL (3.8-10.6)
[2017-08-16 11:26] LABS: Albumin 3.4 g/dL (3.5-5.0); Calcium 8.6 mg/dL (8.4-10.2); Magnesium 2.3 mg/dL (1.6-2.3); Total Bilirubin 0.5 mg/dL (0.2-1.3); Total Protein 5.8 g/dL (6.3-8.2)
[2017-08-16 11:30] LABS: Potassium 5.1 mmol/L (3.5-5.1)
[2017-08-16 11:31] LABS: Creatine Kinase 148 U/L (30-135)
--- NOTE | 2017-08-16 11:38 | XR ---
EXAMINATION TYPE: XR chest 2V DATE OF EXAM: 08/16/2017 COMPARISON: 07/18/2017 HISTORY: Shortness of breath TECHNIQUE: Frontal and lateral views of the chest are obtained. FINDINGS: There is pulmonary venous congestion with cardiomegaly and mild interstitial process. Basilar linear atelectasis noted. Mediastinal structures are stable and grossly unremarkable. No evidence for hilar prominence. Degenerative changes dorsal spine. IMPRESSION: 1. Chronic pulmonary venous decompensation.
[2017-08-16 11:44] LABS: Creatine Kinase MB 2.2 ng/mL (0.0-2.4); Troponin I <0.012 ng/mL (0.000-0.034)
[2017-08-16 11:46] LABS: Partial Thromboplastin Time 28.3 sec (22.0-30.0); Prothrombin Time 18.5 sec (9.0-12.0)
[2017-08-16] MEDS ORDERED: DILTIAZEM 5 MG/1 ML (25ML VIAL) IV STA (12:19)
[2017-08-16] MEDS ORDERED: NITROGLYCERIN OINT 1 INCH/GM PACKET TOPICAL STA (12:27)
[2017-08-16] MEDS ORDERED: DILTIAZEM 50 MG in SODIUM CHLORIDE 0.9% 40 ML IV ONE (12:30)
[2017-08-16 14:24] LABS: Glucose,Whole Blood 176 mg/dL (75-99)
[2017-08-16] MEDS ORDERED: IPRATROPIUM-ALBUTEROL 3 ML NEB INHALATION PRN (16:37)
[2017-08-16] MEDS ORDERED: POLYETHYLENE GLYCOL 3350 17 GM POWD.PACK PO PRN (16:37)
[2017-08-16] MEDS ORDERED: MAG HYDROX/AL HYDROX/SIMETH 30 ML CUP PO PRN (16:39)
[2017-08-16] MEDS ORDERED: LACTULOSE 20 GM/30 ML CUP PO PRN (16:39)
[2017-08-16] MEDS ORDERED: ALPRAZolam 0.25 MG TAB PO PRN (16:39)
[2017-08-16] MEDS ORDERED: CALCIUM CARBONATE 500 MG CHEWABLE PO PRN (16:39)
[2017-08-16] MEDS ORDERED: ONDANSETRON 4 MG/2 ML VIAL IVP PRN (16:39)
[2017-08-16] MEDS ORDERED: NALOXONE 0.4 MG/ML 1 ML VIAL IV PRN (16:39)
[2017-08-16] MEDS ORDERED: MELATONIN 3 MG TABLET PO PRN (16:39)
[2017-08-16 17:36] LABS: Glucose,Whole Blood 136 mg/dL (75-99)
[2017-08-16] MEDS: FUROSEMIDE 10 MG/ML 4 ML VIAL IV SCH (17:36)
[2017-08-16] MEDS: NITROGLYCERIN OINT 1 INCH/GM PACKET TOPICAL SCH ×2 (17:36→23:02)
[2017-08-16] MEDS: INSULIN ASPART 100 UNIT/ML 1 ML 10 ML VIAL SQ SCH ×3 (17:46→21:22)
[2017-08-16] MEDS: WARFARIN 5 MG TAB PO SCH (17:47)
[2017-08-16] MEDS: FERROUS SULFATE 325 MG TAB PO SCH (17:47)
--- NOTE | 2017-08-16 18:38 | P.CNPUL ---
History of Present Illness Consult date: 08/16/17 Reason for consult: dyspnea History of present illness: This is a 66-year-old female patient, morbidly obese, along with history of multiple other medical problems including congestion heart failure with diastolic dysfunction and based on the recent echocardiogram shows normal ejection fraction yet she has moderate severe pulmonary hypertension and no significant valvular abnormalities have been noted, in addition, the patient has chronic lower extremity edema, COPD, diabetes, hypertension, hyperlipidemia , secondary pulmonary hypertension and chronic bronchial asthma. The patient has severe obstructive sleep apnea however she has not been tolerant to CPAP therapy. The patient's sleep apnea has been severe. The patient was diagnosed having severe CHATO treated with a BiPAP pressure of 22/18 cm of water and currently she is not utilizing any treatment. The patient came into the hospital because of worsening shortness of breath and some weight gain and increased lower extremity edema. Her proBNP level is at 1740. Her current body mass index is 59.1 and her body weight is 141.9 kg. Going back on the records, the patient has gained at least 10-12 kg since her last hospitalization back in June 2017. Back then she is to weigh 128 -130 kg. A repeat echocardiogram was done in June 2017 and the patient has a moderate concentric left ventricular hypertrophy, ejection fraction of 55-60%, mild aortic stenosis, moderate to severe pulmonary hypertension with a PA pressure of 51 and there is dilatation of the IVC consistent with elevated right atrial pressure. No pericardial effusion. This patient is on long-term articulation with warfarin. PT/INR is therapeutic at this point. The patient has been maintained on amiodarone for rate control in addition to metoprolol. The patient has been on diuretics with Lasix 40 mg by mouth twice a day. She has insulin-dependent diabetes mellitus. Note that the creatinine is up to 1.7 from a baseline of 1.2 from her latest admission. Review of Systems All systems: negative Constitutional: Denies chills, Denies fever, there is considerable amount of weight gain over the past 1 month in the order of 10 kg Eyes: denies blurred vision, denies pain Ears, nose, mouth and throat: Denies headache, Denies sore throat Cardiovascular: Reports decreased exercise tolerance, Reports dyspnea on exertion, Reports edema, Reports leg edema, Reports orthopnea, Denies chest pain , patient admits to having increased shortness of breath and the patient has increased lower extremity edema bilaterally. Respiratory: Reports dyspnea, Reports sleep apnea, Denies cough Gastrointestinal: Denies abdominal pain, Denies diarrhea, Denies nausea, Denies vomiting Genitourinary: Denies dysuria, Denies hematuria Musculoskeletal: Denies myalgias, no active falter arthritis or joint deformities Integumentary: Denies pruritus, Denies rash Neurological: Denies numbness, Denies weakness Psychiatric: Denies anxiety, Denies depression, chronic fatigue and tiredness and sleepiness Endocrine: Denies fatigue, significant change in weight change Past Medical History Past Medical History: Atrial Fibrillation, Asthma, Coronary Artery Disease (CAD) , Chest Pain / Angina, Heart Failure, Diabetes Mellitus, Hyperlipidemia, Hypertension, Thyroid Disorder Additional Past Medical History / Comment(s): Severe obstructive sleep apnea- does not tolerate CPAP-wears O2 at 3L/NC at hs, pulmonary htn, morbid obesity, history of cellulitis right lower extremity-healed, hypothyroidism. CHF with diastolic dysfunction and a preserved LV function of around 50-55% and the patient has moderate severe pulmonary hypertension and chronic lower extremity edema, chronic atrial fibrillation, chronic anticoagulation, COPD/asthma, coronary artery disease, hypertension, hyperlipidemia, diabetes mellitus, hypothyroidism, bicuspid aortic valve confirmed by previous TIMOTHY that was done and October 2015 History of Any Multi-Drug Resistant Organisms: None Reported Past Surgical History: Appendectomy, Cholecystectomy, Heart Catheterization, Hernia Repair Additional Past Surgical History / Comment(s): 11/03/15 TIMOTHY with cardioversion, cardiac cath, ROSANGELA CATARACTS stated no lens implants, rt ingunial hernia Past Anesthesia/Blood Transfusion Reactions: No Reported Reaction Smoking Status: Never smoker - Past Family History Mother Family Medical History: Cancer Additional Family Medical History / Comment(s): SKIN AND LUNG CANCER "MESOTHELIOMA" Father Family Medical History: CVA/TIA Medications and Allergies Home Medications Medication Instructions Recorded Confirmed Type Ferrous Sulfate [Feosol] 325 mg PO BID 07/14/14 08/16/17 History Ranitidine HCl 150 mg PO BID 07/14/14 08/16/17 History Atorvastatin [Lipitor] 40 mg PO HS 09/28/15 08/16/17 History Metoprolol Tartrate [Lopressor] 50 mg PO BID #60 tab 10/08/15 08/16/17 Rx Budesonide/Formoterol Fumarate 1 puff INHALATION RT-BID 04/02/16 08/16/17 History [Symbicort 160-4.5 Mcg Inhaler] Insulin Glulisine [Apidra Solostar] 8 unit SQ TID-W/MEALS 04/02/16 08/16/17 History Albuterol Inhaler [Ventolin Hfa 2 puff INHALATION RT-Q6H PRN 11/13/16 08/16/17 History Inhaler] Ipratropium-Albuterol Nebulize 3 ml INHALATION RT-TID PRN 01/13/17 08/16/17 History [Duoneb 0.5 mg-3 mg/3 ml Soln] Warfarin [Coumadin] 2.5 mg PO SA 01/15/17 08/16/17 History Warfarin [Coumadin] 5 mg PO SUMOTUWETHFR 01/15/17 08/16/17 History Amiodarone [Cordarone] 100 mg PO DAILY 02/16/17 08/16/17 History Furosemide [Lasix] 40 mg PO BID 02/16/17 08/16/17 History Levothyroxine Sodium [Synthroid] 100 mcg PO DAILY 02/16/17 08/16/17 History Loratadine [Claritin] 10 mg PO DAILY 05/03/17 08/16/17 History Insulin Glargine [Lantus] 45 unit SQ HS 07/15/17 08/16/17 History Nystatin 100,000 Unit/gm Powd 1 applic TOPICAL TID 07/15/17 08/16/17 History [Mycostatin Powder] Polyethylene Glycol 3350 [Miralax] 17 gm PO DAILY PRN 07/15/17 08/16/17 History Lisinopril [Zestril] 10 mg PO BID #60 tab 07/18/17 08/16/17 Rx Allergies Allergy/AdvReac Type Severity Reaction Status Date / Time No Known Allergies Allergy Verified 08/16/17 12:12 Physical Exam Vitals: Vital Signs Temp Pulse Pulse Resp BP BP Pulse Ox 08/16/17 16:14 98.0 F 58 L 20 166/83 99 08/16/17 15:47 56 L 18 122/74 97 08/16/17 14:04 58 L 18 124/63 98 08/16/17 12:32 59 L 16 143/66 99 08/16/17 11:47 61 18 138/64 99 08/16/17 10:42 96.9 F L 62 18 121/57 95 Intake and Output 08/16/17 08/16/17 08/16/17 06:59 14:59 22:59 Other: Weight 141.974 kg GENERAL EXAM: Alert, pleasant, 66-year-old obese white female, comfortable in no apparent distress. HEAD: Normocephalic/atraumatic. EYES: Normal reaction of pupils, equal size. Conjunctiva pink, sclera white. NOSE: Clear with pink turbinates. THROAT: No erythema or exudates. Mallampati class IV with significant crowding of the posterior oropharynx NECK: No masses, no JVD, no thyroid enlargement, no adenopathy. CHEST: No chest wall deformity. Symmetrical expansion. LUNGS: Equal air entry with no crackles, wheeze, rhonchi or dullness. Diminished air entry noted bilaterally along with some limited bibasilar crackles CVS: Regular rate and rhythm, normal S1 and S2, no gallops, no murmurs, no rubs ABDOMEN: Soft, nontender. No hepatosplenomegaly, normal bowel sounds, no guarding or rigidity. EXTREMITIES: No clubbing, no edema, no cyanosis, 2+ pulses and upper and lower extremities. Patient has increased edema in lower extremities bilaterally MUSCULOSKELETAL: Muscle strength and tone normal. SPINE: No scoliosis or deformity SKIN: No rashes CENTRAL NERVOUS SYSTEM: Alert and oriented -3. No focal deficits, tone is normal in all 4 extremities. PSYCHIATRIC: Alert and oriented -3. Appropriate affect. Intact judgment and insight. Results - Laboratory Findings CBC and BMP: 08/16/17 10:55 08/16/17 10:55 PT/INR, D-dimer PT 18.5 sec (9.0-12.0) H 08/16/17 10:55 INR 2.0 (<1.2) H 08/16/17 10:55 Abnormal lab findings: Abnormal Labs 08/16/17 08/16/17 08/16/17 10:55 10:55 10:55 PT 18.5 H INR 2.0 H BUN 61 H Creatinine 1.70 H Glucose 216 H POC Glucose (mg/dL) AST 38 H Alkaline Phosphatase 157 H Total Creatine Kinase 148 H Total Protein 5.8 L Albumin 3.4 L 08/16/17 08/16/17 14:19 17:03 PT INR BUN Creatinine Glucose POC Glucose (mg/dL) 176 H 136 H AST Alkaline Phosphatase Total Creatine Kinase Total Protein Albumin - Diagnostic Findings Chest x-ray: image reviewed Assessment and Plan Plan: Assessment 1 acute on chronic hypoxic respiratory failure with worsening shortness of breath and fluid overload with early signs of pulmonary edema based on chest x- ray findings. 2 CHF with diastolic dysfunction and concentric left ventricular hypertrophy with moderately severe in my hypertension which is secondary in nature 3 suspected bicuspid aortic valve based on a previous TIMOTHY that was done in 2016 4 secondary pulmonary potential and evidence of elevation the right atrial pressures, multifactorial related to valvular heart disease, hypertensive heart disease and diastolic dysfunction and obstructive sleep apnea 5 obstructive sleep apnea severe nontolerant to BiPAP therapy which is supposed to be at a pressure of 22/18 cm of water, her baseline AHI is at 92 6 chronic lower extremity edema 7 obesity with a current BMI of 59 8 diabetes mellitus 9 hypertension 10 hypothyroidism 11 chronic episodic cellulitis of the lower extremities related to chronic lower extremities edema 12 chronic renal failure with fluctuating renal function based on factors. Current creatinine is at 1.7 13 normal coronaries based on a previous cardiac catheterization without evidence of any significant atherosclerotic heart disease 14 chronic bronchial asthma 15 chronic atrial fibrillation maintained on lifelong and to coagulation with warfarin with a therapeutic PT/INR. The patient is also on a combination of metoprolol and amiodarone Plan Encourage utilization of BiPAP and this is something that needs to be reinforced on outpatient basis. The patient has obvious signs of fluid overload. The patient will be subjected to diuretics with Lasix 40 mg or push every 8 hours. Monitor electrolytes. Monitor renal function. Resume outpatient medications including the cardiac medication such as the metoprolol and amiodarone and the patient will be also continued on anticoagulation with warfarin and the INR is therapeutic at this point. The patient will be restarted back on his insulin regimen and thyroid pill. We'll continue to follow.
[2017-08-16] MEDS: SYMBICORT 160-4.5 MCG INHALER INHALATION SCH (19:12)
[2017-08-16 20:43] LABS: Glucose,Whole Blood 159 mg/dL (75-99)
[2017-08-16] MEDS: METOPROLOL TARTRATE 50 MG TAB PO SCH (21:05)
[2017-08-16] MEDS: FAMOTIDINE 20 MG TAB PO SCH (21:06)
[2017-08-16] MEDS: LISINOPRIL 10 MG TAB PO SCH (21:06)
[2017-08-16] MEDS: ATORVASTATIN 40 MG TAB PO SCH (21:06)
[2017-08-16] MEDS: NYSTATIN 100,000 UNIT/GM POWD 15 GM TOPICAL SCH (21:07)
[2017-08-16] MEDS: INSULIN DETEMIR 100 UNIT/ML 10 ML VIAL SQ SCH (21:20)
[2017-08-17] MEDS: FUROSEMIDE 10 MG/ML 4 ML VIAL IV SCH ×2 (00:52→07:56)
[2017-08-17 02:02] LABS: Hemoglobin A1C 8.6 % (4.0-6.0)
[2017-08-17] MEDS: LEVOTHYROXINE 100 MCG TAB PO SCH (06:37)
[2017-08-17 07:07] LABS: Glucose,Whole Blood 135 mg/dL (75-99)
[2017-08-17] MEDS: INSULIN ASPART 100 UNIT/ML 1 ML 10 ML VIAL SQ SCH ×7 (07:56→21:23)
[2017-08-17] MEDS: FAMOTIDINE 20 MG TAB PO SCH ×2 (07:56→20:18)
[2017-08-17] MEDS: FERROUS SULFATE 325 MG TAB PO SCH ×2 (07:57→17:41)
[2017-08-17] MEDS: METOPROLOL TARTRATE 50 MG TAB PO SCH ×2 (07:57→20:18)
[2017-08-17] MEDS: AMIODARONE 100 MG TAB PO SCH (07:57)
[2017-08-17] MEDS: NITROGLYCERIN OINT 1 INCH/GM PACKET TOPICAL SCH ×4 (07:57→21:24)
[2017-08-17] MEDS: LISINOPRIL 10 MG TAB PO SCH ×2 (07:57→20:18)
[2017-08-17] MEDS: NYSTATIN 100,000 UNIT/GM POWD 15 GM TOPICAL SCH ×3 (08:00→21:24)
[2017-08-17] MEDS ORDERED: ASPIRIN 325 MG TAB PO SCH (09:00)
[2017-08-17] MEDS: SYMBICORT 160-4.5 MCG INHALER INHALATION SCH ×2 (09:11→20:45)
[2017-08-17 11:35] LABS: Calcium 8.3 mg/dL (8.4-10.2); Potassium 4.1 mmol/L (3.5-5.1)
[2017-08-17 11:49] VITALS: BMI 57.4
[2017-08-17 12:06] LABS: Glucose,Whole Blood 199 mg/dL (75-99)
[2017-08-17] MEDS: FUROSEMIDE 250 MG in SODIUM CHLORIDE 0.9% 225 ML IVP SCH (12:28)
--- NOTE | 2017-08-17 13:12 | P.CRDCN ---
History of Present Illness Consult date: 08/17/17 History of present illness: Mrs. Nichols is a pleasant 66-year-old female past medical history significant for hypertension, diabetes mellitus, dyslipidemia, paroxysmal atrial fibrillation on intermediate project manager anticoagalation with coumadin, asthma, sleep apnea, pulmonary hypertension and history of diastolic heart failure. She sees Dr. Mccormick in the office. We have been asked to see her in consultation for chest pain. However upon evaluation she comes to the hospital with symptoms of exertional dyspnea that has gotten progressively worse over the previous 3 days with weight gain. She states she was recently admitted and treated for pneumonia. She went home last week feeling good but started noticing her weight was increasing and she was getting more and more dyspneic. She denies symptoms of chest pain, dizziness, palpitations, nausea, vomiting or diaphoresis. EKG shows sinus mechanism with widened QRS with no acute ST or T-wave abnormalities. When compared to old EKG this is the same. Chest xray shows chronic pulmonary venous decompensation with congestion, cardiomegaly and mild interstitial process evident. Laboratory data reviewed, hemoglobin 13.4, platelets 188, INR 2.0, potassium 4.1 , magnesium 2.3, creatinine 1.56, cardiac enzymes negative 1, proBNP 1740. Current cardiac medications include Coumadin, metoprolol 50 mg twice a day, lisinopril 10 mg twice a day, Lasix 40 mg twice a day, atorvastatin 40 mg daily and amiodarone 100 mg daily. Echocardiogram and Doppler study performed in June 2017 reveals preserved left ventricular systolic function with ejection fraction 55-60%, mild aortic valve stenosis with a peak/mean gradient 26.05/13.66 mmHg and moderate pulmonary hypertension with an RVSP of 51.26 mmHg. She underwent cardiac catheterization in 2014 which revealed normal coronary arteries with no obstructive disease. Review of Systems At the time of my exam: CONSTITUTIONAL: Denies fever. Denies chills. EYES: Denies blurred vision. Denies vision changes. Denies eye pain. EARS, NOSE, MOUTH & THROAT: Denies headache. Denies sore throat. Denies ear pain. CARDIOVASCULAR: Denies chest pain. Complains of exertional shortness of breath. Denies orthopnea. Denies PND. Denies palpitations. RESPIRATORY: Denies cough. GASTROINTESTINAL: Denies abdominal pain. Denies diarrhea. Denies constipation. Denies nausea. Denies vomiting. MUSCULOSKELETAL: Denies myalgias. INTEGUMENTARY: Denies pruitis. Denies rash. NEUROLOGIC: Denies numbness. Denies tingling. Denies weakness. PSYCHIATRIC: Denies anxiety. Denies depression. ENDOCRINE: Denies fatigue. Complains of 12 pound weight gain. Denies polydipsia. Denies polyurina. GENITOURINARY: Denies burning, hematuria or urgency with micturation. HEMATOLOGIC: Denies history of anemia. Denies bleeding. Past Medical History Past Medical History: Atrial Fibrillation, Asthma, Coronary Artery Disease (CAD) , Chest Pain / Angina, Heart Failure, Diabetes Mellitus, Hyperlipidemia, Hypertension, Thyroid Disorder Additional Past Medical History / Comment(s): Severe obstructive sleep apnea- does not tolerate CPAP-wears O2 at 3L/NC at hs, pulmonary htn, morbid obesity, history of cellulitis right lower extremity-healed, hypothyroidism. She also has aortic valve stenosis with a potential of bicuspid versus tricuspid aortic valve and a previous ejection fraction of 45%, lower extremity edema History of Any Multi-Drug Resistant Organisms: None Reported Past Surgical History: Appendectomy, Cholecystectomy, Heart Catheterization, Hernia Repair Additional Past Surgical History / Comment(s): 11/03/15 TIMOTHY with cardioversion, cardiac cath, ROSANGELA CATARACTS Past Anesthesia/Blood Transfusion Reactions: No Reported Reaction Past Psychological History: No Psychological Hx Reported Smoking Status: Never smoker Past Alcohol Use History: None Reported Past Drug Use History: None Reported - Past Family History Mother Family Medical History: Cancer Additional Family Medical History / Comment(s): SKIN AND LUNG CANCER "MESOTHELIOMA" Father Family Medical History: CVA/TIA Medications and Allergies Home Medications Medication Instructions Recorded Confirmed Type Ferrous Sulfate [Feosol] 325 mg PO BID 07/14/14 08/16/17 History Ranitidine HCl 150 mg PO BID 07/14/14 08/16/17 History Atorvastatin [Lipitor] 40 mg PO HS 09/28/15 08/16/17 History Metoprolol Tartrate [Lopressor] 50 mg PO BID #60 tab 10/08/15 08/16/17 Rx Budesonide/Formoterol Fumarate 1 puff INHALATION RT-BID 04/02/16 08/16/17 History [Symbicort 160-4.5 Mcg Inhaler] Insulin Glulisine [Apidra Solostar] 8 unit SQ TID-W/MEALS 04/02/16 08/16/17 History Albuterol Inhaler [Ventolin Hfa 2 puff INHALATION RT-Q6H PRN 11/13/16 08/16/17 History Inhaler] Ipratropium-Albuterol Nebulize 3 ml INHALATION RT-TID PRN 01/13/17 08/16/17 History [Duoneb 0.5 mg-3 mg/3 ml Soln] Warfarin [Coumadin] 2.5 mg PO SA 01/15/17 08/16/17 History Warfarin [Coumadin] 5 mg PO SUMOTUWETHFR 01/15/17 08/16/17 History Amiodarone [Cordarone] 100 mg PO DAILY 02/16/17 08/16/17 History Furosemide [Lasix] 40 mg PO BID 02/16/17 08/16/17 History Levothyroxine Sodium [Synthroid] 100 mcg PO DAILY 02/16/17 08/16/17 History Loratadine [Claritin] 10 mg PO DAILY 05/03/17 08/16/17 History Insulin Glargine [Lantus] 45 unit SQ HS 07/15/17 08/16/17 History Nystatin 100,000 Unit/gm Powd 1 applic TOPICAL TID 07/15/17 08/16/17 History [Mycostatin Powder] Polyethylene Glycol 3350 [Miralax] 17 gm PO DAILY PRN 07/15/17 08/16/17 History Lisinopril [Zestril] 10 mg PO BID #60 tab 07/18/17 08/16/17 Rx Allergies Allergy/AdvReac Type Severity Reaction Status Date / Time No Known Allergies Allergy Verified 08/16/17 12:12 Physical Exam Vitals: Vital Signs Temp Pulse Pulse Resp BP BP Pulse Ox 08/17/17 12:44 136/89 08/17/17 05:30 97.2 F L 56 L 18 102/64 92 L 08/16/17 23:00 97.0 F L 54 L 18 102/59 96 08/16/17 19:17 96 08/16/17 16:14 98.0 F 58 L 20 166/83 99 08/16/17 15:47 56 L 18 122/74 97 08/16/17 14:04 58 L 18 124/63 98 Intake and Output 08/16/17 08/17/17 08/17/17 22:59 06:59 14:59 Output Total 400 Balance -400 Output: Urine 400 Other: # Voids 1 1 1 # Bowel Movements 0 0 Weight 133.5 kg 138.062 kg Blood pressure 102/64 heart rate 56 afebrile maintaining oxygen saturation on nasal cannula GENERAL: This is a 66-year-old female in no apparent distress at the time of my examination. Morbidly obese HEENT: Head is atraumatic, normocephalic. Pupils are equal, round. Sclerae anicteric. Conjunctivae are clear. Mucous membranes of the mouth are moist. Neck is supple. There is no jugular venous distention. No carotid bruit is heard. LUNGS: Clear to auscultation no wheezes, rales or rhonchi. No chest wall tenderness is noted on palpation or with deep breathing. Diminished bilaterally. HEART: Regular rate and rhythm with systolic ejection murmur at the base, no rubs or gallops. S1 and S2 heard. ABDOMEN: Firm, nontender with 1+ pitting edema.. Bowel sounds are heard. No organomegaly noted. EXTREMITIES: Significant 2+ pitting edema bilaterally. No calf tenderness noted. VASCULAR: Radial and dorsalis pedis pulses palpated, no evidence of clubbing. NEUROLOGIC: Patient is awake, alert and oriented x3. Results 08/16/17 10:55 08/17/17 10:58 Comprehensive Metabolic Panel 08/17/17 Range/Units 10:58 Sodium 143 (137-145) mmol/L Potassium 4.1 (3.5-5.1) mmol/L Chloride 101 (98-107) mmol/L Carbon Dioxide 31 H (22-30) mmol/L BUN 52 H (7-17) mg/dL Creatinine 1.56 H (0.52-1.04) mg/dL Glucose 195 H (74-99) mg/dL Calcium 8.3 L (8.4-10.2) mg/dL Current Medications Generic Name Dose Route Start Last Admin Trade Name Freq PRN Reason Stop Dose Admin Acetaminophen 650 mg 08/16/17 16:39 Tylenol Tab PO Q6HR PRN Mild Pain or Fever > 100.5 Al Hydroxide/Mg Hydroxide 15 ml 08/16/17 16:39 Maalox PO Q6HR PRN Indigestion Albuterol/Ipratropium 3 ml 08/16/17 16:37 Duoneb 0.5 Mg-3 Mg/3 Ml Soln INHALATION RT-TID PRN Shortness Of Breath Alprazolam 0.25 mg 08/16/17 16:39 Xanax PO Q6HR PRN Anxiety Amiodarone HCl 100 mg 08/17/17 09:00 08/17/17 07:57 Cordarone PO 100 mg DAILY IADA Administration Aspirin 325 mg 08/17/17 09:00 08/17/17 07:57 Aspirin PO 325 mg DAILY AIDA Administration Atorvastatin Calcium 40 mg 08/16/17 21:00 08/16/17 21:06 Lipitor PO 40 mg HS AIDA Administration Budesonide/Formoterol Fumarate 1 puff 08/16/17 20:00 08/17/17 09:11 Symbicort 160-4.5 Mcg Inhaler INHALATION 1 puff RT-BID AIDA Administration Calcium Carbonate/Glycine 1,000 mg 08/16/17 16:39 Tums PO Q4HR PRN Dyspepsia Famotidine 20 mg 08/16/17 21:00 08/17/17 07:56 Pepcid PO 20 mg BID AIDA Administration Ferrous Sulfate 325 mg 08/16/17 17:30 08/17/17 07:57 Feosol PO 325 mg BID-W/MEALS [facility] Administration Furosemide 250 mg/ Sodium 250 mls @ 10 mls/hr 08/17/17 12:15 08/17/17 12:28 Chloride IVP 10 mg/hr .Q24H AIDA 10 mls/hr 10 MG/HR Administration Insulin Aspart 0 unit 08/16/17 17:30 08/17/17 12:28 Novolog SQ 3 unit ACHS AIDA Administration Protocol Insulin Aspart 8 unit 08/16/17 17:30 08/17/17 12:27 Novolog SQ 8 unit TID-W/MEALS AIDA Administration Insulin Detemir 45 unit 08/16/17 21:00 08/16/17 21:20 Levemir SQ 45 unit HS AIDA Administration Lactulose 20 gm 08/16/17 16:39 Cephulac PO DAILY PRN Constipation Levothyroxine Sodium 100 mcg 08/17/17 06:30 08/17/17 06:37 Synthroid PO 100 mcg 0630 AIDA Administration Lisinopril 10 mg 08/16/17 21:00 08/17/17 07:57 Zestril PO 10 mg BID AIDA Administration Melatonin 3 mg 08/16/17 16:39 Melatonin PO HS PRN Insomnia Metoprolol Tartrate 50 mg 08/16/17 21:00 08/17/17 07:57 Lopressor PO 50 mg BID AIDA Administration Naloxone HCl 0.2 mg 08/16/17 16:39 Narcan IV Q2M PRN Opioid Reversal Nitroglycerin 1 inch 08/16/17 18:00 08/17/17 12:28 Nitro-Bid Oint TOPICAL 1 inch QID AIDA Administration Nystatin 1 applic 08/16/17 22:00 08/17/17 08:00 Mycostatin Powder TOPICAL 1 applic TID AIDA Administration Ondansetron HCl 4 mg 08/16/17 16:39 Zofran IVP Q8HR PRN Nausea And Vomiting Polyethylene Glycol 17 gm 08/16/17 16:37 Miralax PO DAILY PRN Constipation Warfarin Sodium 2.5 mg 08/18/17 18:00 Coumadin PO SA [facility] Warfarin Sodium 5 mg 08/16/17 18:00 08/16/17 17:47 Coumadin PO 5 mg SUMOTUWETHFR AIDA Administration Intake and Output 08/16/17 08/17/17 08/17/17 22:59 06:59 14:59 Output Total 400 Balance -400 Output: Urine 400 Other: # Voids 1 1 1 # Bowel Movements 0 0 Weight 133.5 kg 138.062 kg Patient Weight 08/18/17 06:59 Weight 138.062 kg 08/16/17 10:55 08/17/17 10:58 Assessment and Plan Assessment: ASSESSMENT 1. Acute on chronic diastolic heart failure 2. Moderate pulmonary hypertension 3. Paroxysmal atrial fibrillation on long-term anticoagulation, currently maintaining sinus mechanism with a therapeutic INR. 4. Hypertension 5. Obstructive sleep apnea, noncompliant with BiPAP 6. Aortic stenosis 7. Morbid obesity 8. Diabetes mellitus 9. Chronic kidney disease, GFR 35. Stage IIIB PLAN Continue amiodarone 100 mg daily, atorvastatin 40 mg daily, lisinopril 10 mg twice a day, Lopressor 50 mg twice a day and Coumadin has is currently dosed. Continue with ongoing diuresis Lasix IV 40 mg twice a day. Follow renal function and electrolytes closely. Daily weights using the same scale at the same time each day. Strict intake and output. Further recommendations to follow. Thank you kindly for this consultation. Nurse Practitioner note has been reviewed, I agree with a documented findings and plan of care. Patient was seen and examined.
--- NOTE | 2017-08-17 13:38 | HP ---
HISTORY AND PHYSICAL DATE OF SERVICE: 08/17/2017 PRESENTING COMPLAINT: Short of breath. HISTORY OF PRESENT COMPLAINT: This is a pleasant 66-year-old patient with rather extensive medical history including cor pulmonale secondary pulmonary hypertension, CHF with diastolic dysfunction, paroxysmal atrial fibrillation, hypothyroid, obstructive sleep apnea does not use CPAP machine, morbid obesity, diabetes, on home oxygen 3 L. The patient presents with worsening short of breath going on for 2 or 3 days, increasing swelling of lower extremity, abdominal distention, minimal cough. No fever. Chest x-ray suggestive of fluid overload. The patient was started on IV Lasix. The patient also got orthopnea and denies any chest pain. REVIEW OF SYSTEMS: CONSTITUTIONAL: Tired. HEENT: None. RESPIRATORY: As above. CARDIOVASCULAR: As above. GASTROINTESTINAL: None. GENITOURINARY: None. MUSCULOSKELETAL: Pain in joints. DERMATOLOGICAL: None. HEMATOLOGIC: None. LYMPHATIC: None. PSYCHIATRY: None. NEUROLOGICAL: None. PAST MEDICAL HISTORY: Past medical history of paroxysmal atrial fibrillation, hypothyroid, obstructive sleep apnea, morbid obesity, hyperlipidemia, diabetes type 2, hypoxic respiratory failure on 3 L oxygen at home, pulmonary hypertension, CHF from diastolic dysfunction. PAST SURGICAL HISTORY: Appendectomy, cholecystectomy, cardiac catheterization, TIMOTHY, cardioversion, bilateral cataract surgery. The patient does not use a BiPAP. SOCIAL HISTORY: Patient lives at [facility] in [place]. Uses a walker. 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 Otherwise, no smoking, no alcohol. FAMILY HISTORY: Lung cancer and mesothelioma. HOME MEDICATIONS: 1. Coumadin 2.5 mg on Sunday, 5 mg on Sunday, Sunday, Sunday, Sunday, , Sunday. 2. Zantac 150 mg p.o. b.i.d. 3. MiraLAX 17 grams p.o. daily p.r.n. 4. Mycostatin topical t.i.d. 5. Lopressor 50 p.o. b.i.d. 6. Claritin 10 mg p.o. daily. 7. Zestril 10 mg p.o. b.i.d. 8. Synthroid 100 mcg p.o. daily. 9. DuoNeb t.i.d. p.r.n. 10.Insulin Apidra 8 units subcutaneous t.i.d. 11.Lantus 45 units subcutaneous at bedtime. 12.Lasix 40 mg b.i.d. 13.Iron 325 p.o. b.i.d. 14.Symbicort 160/4.5 one puff b.i.d. 15.Lipitor 40 mg at bedtime. 16.Cordarone 100 mg p.o. daily. 17.Ventolin HFA 2 puffs q.6 p.r.n. ALLERGIES: None. PHYSICAL EXAMINATION: On examination, vital signs on presentation: Temperature 96.9, pulse 62, respiratory 18, blood pressure 121/57, pulse ox 95% on 2 L. GENERAL APPEARANCE: Sitting up in a chair, short of breath. EYES: Pupils equal. Conjunctivae normal. HEENT: External appearance of nose and ears normal. Oral cavity normal. NECK: JVD unable to assess. Mass not palpable. RESPIRATORY: Effort increased. LUNGS: Diminished breath sounds. CARDIOVASCULAR: First and second sounds normal. Gross edema. ABDOMEN: Distended with abdominal wall edema. Liver and spleen not palpable. LYMPHATIC: No lymph node palpable of the neck and axillae. PSYCHIATRY: Alert and oriented x3. Mood and affect slightly anxious. NEUROLOGICAL: Pupils equal. Cranial nerves grossly intact. Power and sensation grossly intact. INVESTIGATIONS: White count 8.5, hemoglobin 13.4. INR is 2. Potassium 5.1. BUN 61, creatinine 1.70. The patient's BUN and creatinine was 30/1.21 back on June of 2017. Chest x-ray shows pulmonary edema and 2D echocardiogram from June EF of 55% to 60%. ASSESSMENT: 1. Acute on chronic congestive heart failure exacerbation from diastolic dysfunction, ejection fraction 60%. 2. Acute renal failure probably prerenal. Patient's creatinine has bumped up from before. 3. Chronic cor pulmonale secondary to pulmonary hypertension. 4. Paroxysmal atrial fibrillation chronically on Coumadin. 5. Hypothyroidism. 6. Obstructive sleep apnea, does not use CPAP machine. 7. Morbid obesity, body mass index greater than 40. 8. Hyperlipidemia. 9. Diabetes mellitus type 2, chronically on insulin. 10.Chronic hypoxic respiratory failure, 3 L oxygen at home. 11.Secondary pulmonary hypertension, moderate to severe secondary to chronic obstructive pulmonary disease. 12.Chronic kidney disease stage 3 probably from hypertensive nephrosclerosis. PLAN: Patient is on IV Lasix. Swelling is only going down slowly. We will put the patient on Lasix ip and transferred the patient to telemetry floor. Home medications will be resumed. Electrolytes will be followed closely and so will be Accu-Cheks. Consultation was made to Cardiology, Nephrology, and Pulmonary. KEV / FARTUN: [id number] /
--- NOTE | 2017-08-17 14:22 | P.PN ---
Subjective Progress Note Date: 08/17/17 This is a 66-year-old female patient, morbidly obese, along with history of multiple other medical problems including congestion heart failure with diastolic dysfunction and based on the recent echocardiogram shows normal ejection fraction yet she has moderate severe pulmonary hypertension and no significant valvular abnormalities have been noted, in addition, the patient has chronic lower extremity edema, COPD, diabetes, hypertension, hyperlipidemia , secondary pulmonary hypertension and chronic bronchial asthma. The patient has severe obstructive sleep apnea however she has not been tolerant to CPAP therapy. The patient's sleep apnea has been severe. The patient was diagnosed having severe CHATO treated with a BiPAP pressure of 22/18 cm of water and currently she is not utilizing any treatment. The patient came into the hospital because of worsening shortness of breath and some weight gain and increased lower extremity edema. Her proBNP level is at 1740. Her current body mass index is 59.1 and her body weight is 141.9 kg. Going back on the records, the patient has gained at least 10-12 kg since her last hospitalization back in June 2017. Back then she is to weigh 128 -130 kg. A repeat echocardiogram was done in June 2017 and the patient has a moderate concentric left ventricular hypertrophy, ejection fraction of 55-60%, mild aortic stenosis, moderate to severe pulmonary hypertension with a PA pressure of 51 and there is dilatation of the IVC consistent with elevated right atrial pressure. No pericardial effusion. This patient is on long-term articulation with warfarin. PT/INR is therapeutic at this point. The patient has been maintained on amiodarone for rate control in addition to metoprolol. The patient has been on diuretics with Lasix 40 mg by mouth twice a day. She has insulin-dependent diabetes mellitus. Note that the creatinine is up to 1.7 from a baseline of 1.2 from her latest admission. On 08/17/2017 the patient is feeling better compared to yesterday pH is diuresing nicely with IV Lasix. The exact input output has not been measured and I made recommendations to the nursing staff to collect the urine output. The patient has signs of fluid overload for now and she has it sees edema in lower extremities bilaterally. The renal function is stable with a creatinine of 1.5. No significant hypokalemia and potassium level is at 4.1. She is receiving 4 L of IV Lasix every 8 hours. The PT/INR is therapeutic for now. She is less short of breath compared to yesterday. No other significant events over the past 24 hours. Objective - Vital Signs Vital signs: Vital Signs Temp 97.2 F L 08/17/17 05:30 Pulse 56 L 08/17/17 05:30 Resp 18 08/17/17 05:30 BP 136/89 08/17/17 12:44 Pulse Ox 92 L 08/17/17 05:30 Intake & Output 08/16/17 08/17/17 08/17/17 18:59 06:59 18:59 Output Total 1100 Balance -1100 Weight 141.974 kg 133.5 kg 138.062 kg Output: Urine 1100 Other: # Voids 1 1 1 # Bowel Movements 0 - Exam GENERAL EXAM: Alert, pleasant, 66-year-old obese white female, comfortable in no apparent distress. HEAD: Normocephalic/atraumatic. EYES: Normal reaction of pupils, equal size. Conjunctiva pink, sclera white. NOSE: Clear with pink turbinates. THROAT: No erythema or exudates. Mallampati class IV with significant crowding of the posterior oropharynx NECK: No masses, no JVD, no thyroid enlargement, no adenopathy. CHEST: No chest wall deformity. Symmetrical expansion. LUNGS: Equal air entry with no crackles, wheeze, rhonchi or dullness. Diminished air entry noted bilaterally along with some limited bibasilar crackles CVS: Regular rate and rhythm, normal S1 and S2, no gallops, no murmurs, no rubs ABDOMEN: Soft, nontender. No hepatosplenomegaly, normal bowel sounds, no guarding or rigidity. EXTREMITIES: No clubbing, no edema, no cyanosis, 2+ pulses and upper and lower extremities. Patient has increased edema in lower extremities bilaterally MUSCULOSKELETAL: Muscle strength and tone normal. SPINE: No scoliosis or deformity SKIN: No rashes CENTRAL NERVOUS SYSTEM: Alert and oriented -3. No focal deficits, tone is normal in all 4 extremities. PSYCHIATRIC: Alert and oriented -3. Appropriate affect. Intact judgment and insight. - Labs CBC & Chem 7: 08/16/17 10:55 08/17/17 10:58 Labs: Abnormal Lab Results - Last 24 Hours (Table) 08/16/17 08/16/17 08/16/17 Range/Units 10:55 14:19 17:03 Carbon Dioxide (22-30) mmol/L BUN (7-17) mg/dL Creatinine (0.52-1.04) mg/dL Glucose (74-99) mg/dL POC Glucose (mg/dL) 176 H 136 H (75-99) mg/dL Hemoglobin A1c 8.6 H (4.0-6.0) % Calcium (8.4-10.2) mg/dL 08/16/17 08/17/17 08/17/17 Range/Units 20:41 06:55 10:58 Carbon Dioxide 31 H (22-30) mmol/L BUN 52 H (7-17) mg/dL Creatinine 1.56 H (0.52-1.04) mg/dL Glucose 195 H (74-99) mg/dL POC Glucose (mg/dL) 159 H 135 H (75-99) mg/dL Hemoglobin A1c (4.0-6.0) % Calcium 8.3 L (8.4-10.2) mg/dL 08/17/17 Range/Units 11:36 Carbon Dioxide (22-30) mmol/L BUN (7-17) mg/dL Creatinine (0.52-1.04) mg/dL Glucose (74-99) mg/dL POC Glucose (mg/dL) 199 H (75-99) mg/dL Hemoglobin A1c (4.0-6.0) % Calcium (8.4-10.2) mg/dL Assessment and Plan Plan: Assessment 1 acute on chronic hypoxic respiratory failure with worsening shortness of breath and fluid overload with early signs of pulmonary edema based on chest x- ray findings. The patient is currently being diuresis IV Lasix 4 L every 8 hours. She is a negative fluid balance less short of breath compared to yesterday. 2 CHF with diastolic dysfunction and concentric left ventricular hypertrophy with moderately severe in my hypertension which is secondary in nature 3 suspected bicuspid aortic valve based on a previous TIMOTHY that was done in 2016 4 secondary pulmonary potential and evidence of elevation the right atrial pressures, multifactorial related to valvular heart disease, hypertensive heart disease and diastolic dysfunction and obstructive sleep apnea 5 obstructive sleep apnea severe nontolerant to BiPAP therapy which is supposed to be at a pressure of 22/18 cm of water, her baseline AHI is at 92 6 chronic lower extremity edema 7 obesity with a current BMI of 59 8 diabetes mellitus 9 hypertension 10 hypothyroidism 11 chronic episodic cellulitis of the lower extremities related to chronic lower extremities edema 12 chronic renal failure with fluctuating renal function based on factors. Current creatinine is at 1. 56 13 normal coronaries based on a previous cardiac catheterization without evidence of any significant atherosclerotic heart disease 14 chronic bronchial asthma 15 chronic atrial fibrillation maintained on lifelong and to coagulation with warfarin with a therapeutic PT/INR. The patient is also on a combination of metoprolol and amiodarone Plan Encourage utilization of BiPAP and this is something that needs to be reinforced on outpatient basis. The patient has obvious signs of fluid overload. continue IV Lasix. Daily weight measurements. Anticipate improvement overall history status over the next 24 hours. We'll continue to follow.
--- NOTE | 2017-08-17 14:37 | P.NPCON ---
History of Present Illness - Reason for Consult acute renal failure, hypernatremia - History of Present Illness Reason for consultation: Acute kidney injury History of present illness: Patient is a 66-year-old female seen in renal consultation for acute kidney injury and volume overload. Patient has chronic kidney disease stage III secondary to cardiorenal syndrome with baseline creatinine in the range of 1.2- 1.3. Creatinine was 1.7 on admission and is down to 1.56 today. She was maintained on Lasix 40 mg IV 3 times daily and changed to Lasix drip at 10 mL an hour about an hour ago. Her urinalysis from last month was benign. Patient presented to the hospital with dyspnea and weight gain. Patient states she was taking Lasix 40 mg orally twice daily but noticed progressive worsening of edema and dyspnea over the last 1 week. She gained about 10 pounds. She does have history of diastolic CHF with moderate pulmonary hypertension. She admits to good urine output. No vomiting or diarrhea. She denies eating excessive salt or drinking excessive amounts of fluids. Denies regular use of NSAIDs. Denies family history of renal disease. Vital signs are stable. General: The patient appeared well nourished and normally developed. HEENT: Head exam is unremarkable. Neck is without jugular venous distension. LUNGS: Lungs are clear to auscultation and percussion. Breath sounds decreased. HEART: Rate and Rhythm are regular. First and second heart sounds normal. No murmurs, rubs or gallops. ABDOMEN: Abdominal exam reveals normal bowel sounds. Non-tender and non- distended. No evidence of peritonitis. EXTREMITITES: 2+ edema. Past Medical History Past Medical History: Atrial Fibrillation, Asthma, Coronary Artery Disease (CAD) , Chest Pain / Angina, Heart Failure, Diabetes Mellitus, Hyperlipidemia, Hypertension, Thyroid Disorder Additional Past Medical History / Comment(s): Severe obstructive sleep apnea- does not tolerate CPAP-wears O2 at 3L/NC at hs, pulmonary htn, morbid obesity, history of cellulitis right lower extremity-healed, hypothyroidism. She also has aortic valve stenosis with a potential of bicuspid versus tricuspid aortic valve and a previous ejection fraction of 45%, lower extremity edema History of Any Multi-Drug Resistant Organisms: None Reported Past Surgical History: Appendectomy, Cholecystectomy, Heart Catheterization, Hernia Repair Additional Past Surgical History / Comment(s): 11/03/15 TIMOTHY with cardioversion, cardiac cath, ROSANGELA CATARACTS Past Anesthesia/Blood Transfusion Reactions: No Reported Reaction Past Psychological History: No Psychological Hx Reported Smoking Status: Never smoker Past Alcohol Use History: None Reported Past Drug Use History: None Reported - Past Family History Mother Family Medical History: Cancer Additional Family Medical History / Comment(s): SKIN AND LUNG CANCER "MESOTHELIOMA" Father Family Medical History: CVA/TIA Medications and Allergies Home Medications Medication Instructions Recorded Confirmed Type Ferrous Sulfate [Feosol] 325 mg PO BID 07/14/14 08/16/17 History Ranitidine HCl 150 mg PO BID 07/14/14 08/16/17 History Atorvastatin [Lipitor] 40 mg PO HS 09/28/15 08/16/17 History Metoprolol Tartrate [Lopressor] 50 mg PO BID #60 tab 10/08/15 08/16/17 Rx Budesonide/Formoterol Fumarate 1 puff INHALATION RT-BID 04/02/16 08/16/17 History [Symbicort 160-4.5 Mcg Inhaler] Insulin Glulisine [Apidra Solostar] 8 unit SQ TID-W/MEALS 04/02/16 08/16/17 History Albuterol Inhaler [Ventolin Hfa 2 puff INHALATION RT-Q6H PRN 11/13/16 08/16/17 History Inhaler] Ipratropium-Albuterol Nebulize 3 ml INHALATION RT-TID PRN 01/13/17 08/16/17 History [Duoneb 0.5 mg-3 mg/3 ml Soln] Warfarin [Coumadin] 2.5 mg PO SA 01/15/17 08/16/17 History Warfarin [Coumadin] 5 mg PO SUMOTUWETHFR 01/15/17 08/16/17 History Amiodarone [Cordarone] 100 mg PO DAILY 02/16/17 08/16/17 History Furosemide [Lasix] 40 mg PO BID 02/16/17 08/16/17 History Levothyroxine Sodium [Synthroid] 100 mcg PO DAILY 02/16/17 08/16/17 History Loratadine [Claritin] 10 mg PO DAILY 05/03/17 08/16/17 History Insulin Glargine [Lantus] 45 unit SQ HS 07/15/17 08/16/17 History Nystatin 100,000 Unit/gm Powd 1 applic TOPICAL TID 07/15/17 08/16/17 History [Mycostatin Powder] Polyethylene Glycol 3350 [Miralax] 17 gm PO DAILY PRN 07/15/17 08/16/17 History Lisinopril [Zestril] 10 mg PO BID #60 tab 07/18/17 08/16/17 Rx Allergies Allergy/AdvReac Type Severity Reaction Status Date / Time No Known Allergies Allergy Verified 08/16/17 12:12 Physical Exam Vitals: Vital Signs Temp Pulse Pulse Resp BP BP Pulse Ox 08/17/17 12:44 136/89 08/17/17 05:30 97.2 F L 56 L 18 102/64 92 L 08/16/17 23:00 97.0 F L 54 L 18 102/59 96 08/16/17 19:17 96 08/16/17 16:14 98.0 F 58 L 20 166/83 99 08/16/17 15:47 56 L 18 122/74 97 Intake and Output 08/16/17 08/17/17 08/17/17 22:59 06:59 14:59 Output Total 1100 Balance -1100 Output: Urine 1100 Other: # Voids 1 1 1 # Bowel Movements 0 0 Weight 133.5 kg 138.062 kg Results - Lab Results Most recent lab results Calcium 8.3 mg/dL (8.4-10.2) L 08/17/17 10:58 Magnesium 2.3 mg/dL (1.6-2.3) 08/16/17 10:55 08/16/17 10:55 08/17/17 10:58 Assessment and Plan Plan: Assessment: #1. Nonoliguric acute kidney injury mostly prerenal secondary to cardiorenal syndrome. Creatinine 1.7 on admission and is under 1.56 today. Urinalysis from last month was benign. #2. Volume overload. #3. Dyspnea secondary to acute exacerbation of diastolic CHF. #4. Moderate pulmonary hypertension. #5. Chronic kidney disease stage III secondary to cardiorenal syndrome with baseline creatinine in the range of 1.2-1.3. #6. Morbid obesity. #7. Atrial fibrillation maintained on amiodarone and metoprolol. Also on Coumadin for anticoagulation. Plan: Continue with Lasix drip at 10 mL an hour for now. Low-salt diet. 1500 mL fluid restriction. Avoid nephrotoxic agents and hypotensive episodes. Repeat electrolytes in the morning. Thank you for the consultation. I will continue to follow the patient you during her hospital stay.
[2017-08-17 17:33] LABS: Glucose,Whole Blood 150 mg/dL (75-99)
[2017-08-17] MEDS: WARFARIN 5 MG TAB PO SCH (17:41)
[2017-08-17] MEDS: ATORVASTATIN 40 MG TAB PO SCH (20:18)
[2017-08-17 20:37] LABS: Glucose,Whole Blood 161 mg/dL (75-99)
[2017-08-17] MEDS: INSULIN DETEMIR 100 UNIT/ML 10 ML VIAL SQ SCH (21:24)
[2017-08-18] MEDS: LEVOTHYROXINE 100 MCG TAB PO SCH (06:33)
[2017-08-18] MEDS: NITROGLYCERIN OINT 1 INCH/GM PACKET TOPICAL SCH ×4 (08:02→21:01)
[2017-08-18] MEDS: FERROUS SULFATE 325 MG TAB PO SCH ×2 (08:02→18:01)
[2017-08-18] MEDS: LISINOPRIL 10 MG TAB PO SCH ×2 (08:02→21:01)
[2017-08-18] MEDS: METOPROLOL TARTRATE 50 MG TAB PO SCH ×2 (08:02→21:01)
[2017-08-18] MEDS: AMIODARONE 100 MG TAB PO SCH (08:02)
[2017-08-18] MEDS: FAMOTIDINE 20 MG TAB PO SCH ×2 (08:02→21:01)
[2017-08-18] MEDS: NYSTATIN 100,000 UNIT/GM POWD 15 GM TOPICAL SCH ×3 (08:03→21:02)
[2017-08-18] MEDS: INSULIN ASPART 100 UNIT/ML 1 ML 10 ML VIAL SQ SCH ×7 (08:03→21:22)
[2017-08-18 08:07] LABS: Glucose,Whole Blood 156 mg/dL (75-99)
[2017-08-18 08:52] LABS: INR 1.9 (<1.2); Prothrombin Time 17.6 sec (9.0-12.0)
[2017-08-18 08:59] LABS: Calcium 8.3 mg/dL (8.4-10.2); Magnesium 2.1 mg/dL (1.6-2.3); Potassium 4.3 mmol/L (3.5-5.1)
[2017-08-18] MEDS: SYMBICORT 160-4.5 MCG INHALER INHALATION SCH ×2 (09:04→20:14)
--- NOTE | 2017-08-18 10:41 | P.PN ---
Subjective Patient is seen in follow-up for acute kidney injury and chronic kidney disease. Patient has chronic kidney disease stage III with baseline creatinine in the range of 1.2-1.3 secondary to cardiorenal syndrome. Creatinine was 1.7 on admission and is down to 1.47 today. She scheduled to maintain Lasix drip at 10 mL an hour. Her urine output was over 4 L in the last 24 hours. Edema is improving. Oral intake is good. No vomiting or diarrhea. Vital signs are stable. General: The patient appeared well nourished and normally developed. HEENT: Head exam is unremarkable. Neck is without jugular venous distension. LUNGS: Lungs are clear to auscultation and percussion. Breath sounds decreased. HEART: Rate and Rhythm are regular. First and second heart sounds normal. No murmurs, rubs or gallops. ABDOMEN: Abdominal exam reveals normal bowel sounds. Non-tender and non- distended. No evidence of peritonitis. EXTREMITITES: 2+ edema. Objective - Vital Signs Vital signs: Vital Signs Temp 98.2 F 08/18/17 07:00 Pulse 64 08/18/17 08:30 Resp 20 08/18/17 07:00 BP 133/69 08/18/17 07:00 Pulse Ox 94 L 08/18/17 07:00 Intake & Output 08/17/17 08/18/17 08/18/17 18:59 06:59 18:59 Intake Total 500 240 Output Total 2150 2100 1150 Balance -2150 -1600 -910 Weight 138.062 kg 138.799 kg Intake: Oral 500 240 Output: Urine 2150 2100 1150 Other: Voiding Method Toilet # Voids 1 # Bowel Movements 0 - Labs CBC & Chem 7: 08/16/17 10:55 08/18/17 08:17 Labs: Abnormal Lab Results - Last 24 Hours (Table) 08/17/17 08/17/17 08/17/17 Range/Units 10:58 11:36 17:04 PT (9.0-12.0) sec INR (<1.2) Carbon Dioxide 31 H (22-30) mmol/L BUN 52 H (7-17) mg/dL Creatinine 1.56 H (0.52-1.04) mg/dL Glucose 195 H (74-99) mg/dL POC Glucose (mg/dL) 199 H 150 H (75-99) mg/dL Calcium 8.3 L (8.4-10.2) mg/dL 08/17/17 08/18/17 08/18/17 Range/Units 20:32 07:12 08:17 PT (9.0-12.0) sec INR (<1.2) Carbon Dioxide 35 H (22-30) mmol/L BUN 50 H (7-17) mg/dL Creatinine 1.47 H (0.52-1.04) mg/dL Glucose 190 H (74-99) mg/dL POC Glucose (mg/dL) 161 H 156 H (75-99) mg/dL Calcium 8.3 L (8.4-10.2) mg/dL 08/18/17 Range/Units 08:17 PT 17.6 H (9.0-12.0) sec INR 1.9 H (<1.2) Carbon Dioxide (22-30) mmol/L BUN (7-17) mg/dL Creatinine (0.52-1.04) mg/dL Glucose (74-99) mg/dL POC Glucose (mg/dL) (75-99) mg/dL Calcium (8.4-10.2) mg/dL Assessment and Plan Plan: Assessment: #1. Nonoliguric acute kidney injury mostly prerenal secondary to cardiorenal syndrome. Creatinine 1.7 on admission and is 1.47 today. Urinalysis from last month was benign. #2. Volume overload. Improving. #3. Dyspnea secondary to acute exacerbation of diastolic CHF. #4. Moderate pulmonary hypertension. #5. Chronic kidney disease stage III secondary to cardiorenal syndrome with baseline creatinine in the range of 1.2-1.3. #6. Morbid obesity. #7. Atrial fibrillation maintained on amiodarone and metoprolol. Also on Coumadin for anticoagulation. Plan: Continue with Lasix drip at 10 mL an hour for now. Add metolazone 2.5 mg daily. Low-salt diet. 1500 mL fluid restriction. Avoid nephrotoxic agents and hypotensive episodes. Repeat electrolytes in the morning.
[2017-08-18] MEDS: METOLAZONE 2.5 MG TAB PO SCH (11:23)
[2017-08-18] MEDS: FUROSEMIDE 250 MG in SODIUM CHLORIDE 0.9% 225 ML IVP SCH (11:23)
[2017-08-18 12:05] LABS: Glucose,Whole Blood 148 mg/dL (75-99)
--- NOTE | 2017-08-18 16:33 | P.PN ---
Subjective Progress Note Date: 08/18/17 This is a 66-year-old female patient, morbidly obese, along with history of multiple other medical problems including congestion heart failure with diastolic dysfunction and based on the recent echocardiogram shows normal ejection fraction yet she has moderate severe pulmonary hypertension and no significant valvular abnormalities have been noted, in addition, the patient has chronic lower extremity edema, COPD, diabetes, hypertension, hyperlipidemia , secondary pulmonary hypertension and chronic bronchial asthma. The patient has severe obstructive sleep apnea however she has not been tolerant to CPAP therapy. The patient's sleep apnea has been severe. The patient was diagnosed having severe CHATO treated with a BiPAP pressure of 22/18 cm of water and currently she is not utilizing any treatment. The patient came into the hospital because of worsening shortness of breath and some weight gain and increased lower extremity edema. Her proBNP level is at 1740. Her current body mass index is 59.1 and her body weight is 141.9 kg. Going back on the records, the patient has gained at least 10-12 kg since her last hospitalization back in June 2017. Back then she is to weigh 128 -130 kg. A repeat echocardiogram was done in June 2017 and the patient has a moderate concentric left ventricular hypertrophy, ejection fraction of 55-60%, mild aortic stenosis, moderate to severe pulmonary hypertension with a PA pressure of 51 and there is dilatation of the IVC consistent with elevated right atrial pressure. No pericardial effusion. This patient is on long-term articulation with warfarin. PT/INR is therapeutic at this point. The patient has been maintained on amiodarone for rate control in addition to metoprolol. The patient has been on diuretics with Lasix 40 mg by mouth twice a day. She has insulin-dependent diabetes mellitus. Note that the creatinine is up to 1.7 from a baseline of 1.2 from her latest admission. On 08/17/2017 the patient is feeling better compared to yesterday pH is diuresing nicely with IV Lasix. The exact input output has not been measured and I made recommendations to the nursing staff to collect the urine output. The patient has signs of fluid overload for now and she has it sees edema in lower extremities bilaterally. The renal function is stable with a creatinine of 1.5. No significant hypokalemia and potassium level is at 4.1. She is receiving 4 L of IV Lasix every 8 hours. The PT/INR is therapeutic for now. She is less short of breath compared to yesterday. No other significant events over the past 24 hours. The patient is seen again today 08/18/2017 in follow-up on the regular medical floor. She is awake and alert in no acute distress. She is currently sitting up in the chair at the bedside. She is breathing easier today as compared to yesterday. Maintaining O2 saturations in the 90s on room air. She's been afebrile. Hemodynamically stable. He remains in a 2 L negative balance. She is currently on a Lasix drip at 10 mg per hour. Creatinine 1.47. INR 1.9. Objective - Vital Signs Vital signs: Vital Signs Temp 98.2 F 08/18/17 15:00 Pulse 53 L 08/18/17 15:00 Resp 20 08/18/17 15:00 BP 137/73 08/18/17 15:00 Pulse Ox 91 L 08/18/17 15:00 Intake & Output 08/17/17 08/18/17 08/18/17 18:59 06:59 18:59 Intake Total 500 789.167 Output Total 2150 2100 2850 Balance -2150 -1600 -2060.833 Weight 138.062 kg 138.799 kg Intake: IV 80 Furosemide 250 mg In 80 Sodium Chloride 0.9% 225 ml @ 10 MG/HR 10 mls/hr IVP .Q24H AIDA Rx#: [id number] Intake, IV Titration 229.167 Amount Furosemide 250 mg In 229.167 Sodium Chloride 0.9% 225 ml @ 10 MG/HR 10 mls/hr IVP .Q24H AIDA Rx#: [id number] Oral 500 480 Output: Urine 2150 2100 2850 Other: Voiding Method Toilet # Voids 1 # Bowel Movements 0 - Exam GENERAL EXAM: Alert, pleasant, 66-year-old obese white female, comfortable in no apparent distress. HEAD: Normocephalic/atraumatic. EYES: Normal reaction of pupils, equal size. Conjunctiva pink, sclera white. NOSE: Clear with pink turbinates. THROAT: No erythema or exudates. Mallampati class IV with significant crowding of the posterior oropharynx NECK: No masses, no JVD, no thyroid enlargement, no adenopathy. CHEST: No chest wall deformity. Symmetrical expansion. LUNGS: Equal air entry with no crackles, wheeze, rhonchi or dullness. Diminished air entry noted bilaterally along with some limited bibasilar crackles CVS: Regular rate and rhythm, normal S1 and S2, no gallops, no murmurs, no rubs ABDOMEN: Soft, nontender. No hepatosplenomegaly, normal bowel sounds, no guarding or rigidity. EXTREMITIES: No clubbing, no edema, no cyanosis, 2+ pulses and upper and lower extremities. Patient has increased edema in lower extremities bilaterally MUSCULOSKELETAL: Muscle strength and tone normal. SPINE: No scoliosis or deformity SKIN: No rashes CENTRAL NERVOUS SYSTEM: Alert and oriented -3. No focal deficits, tone is normal in all 4 extremities. PSYCHIATRIC: Alert and oriented -3. Appropriate affect. Intact judgment and insight. - Labs CBC & Chem 7: 08/16/17 10:55 08/18/17 08:17 Labs: Abnormal Lab Results - Last 24 Hours (Table) 08/17/17 08/17/17 08/18/17 Range/Units 17:04 20:32 07:12 PT (9.0-12.0) sec INR (<1.2) Carbon Dioxide (22-30) mmol/L BUN (7-17) mg/dL Creatinine (0.52-1.04) mg/dL Glucose (74-99) mg/dL POC Glucose (mg/dL) 150 H 161 H 156 H (75-99) mg/dL Calcium (8.4-10.2) mg/dL 08/18/17 08/18/17 08/18/17 Range/Units 08:17 08:17 11:55 PT 17.6 H (9.0-12.0) sec INR 1.9 H (<1.2) Carbon Dioxide 35 H (22-30) mmol/L BUN 50 H (7-17) mg/dL Creatinine 1.47 H (0.52-1.04) mg/dL Glucose 190 H (74-99) mg/dL POC Glucose (mg/dL) 148 H (75-99) mg/dL Calcium 8.3 L (8.4-10.2) mg/dL Assessment and Plan Assessment: Assessment 1 acute on chronic hypoxic respiratory failure with worsening shortness of breath and fluid overload with early signs of pulmonary edema based on chest x- ray findings. The patient is currently on a Lasix drip at 10 mg per hour.. She is a negative fluid balance less short of breath compared to yesterday. 2 acute exacerbation of CHF with diastolic dysfunction and concentric left ventricular hypertrophy with moderately severe in my hypertension which is secondary in nature 3 suspected bicuspid aortic valve based on a previous TIMOTHY that was done in 2016 4 secondary pulmonary potential and evidence of elevation the right atrial pressures, multifactorial related to valvular heart disease, hypertensive heart disease and diastolic dysfunction and obstructive sleep apnea 5 obstructive sleep apnea severe nontolerant to BiPAP therapy which is supposed to be at a pressure of 22/18 cm of water, her baseline AHI is at 92 6 chronic lower extremity edema 7 obesity with a current BMI of 59 8 diabetes mellitus 9 hypertension 10 hypothyroidism 11 chronic episodic cellulitis of the lower extremities related to chronic lower extremities edema 12 chronic renal failure with fluctuating renal function based on factors. Current creatinine is at 1. 47 13 normal coronaries based on a previous cardiac catheterization without evidence of any significant atherosclerotic heart disease 14 chronic bronchial asthma 15 chronic atrial fibrillation maintained on lifelong and to coagulation with warfarin with a therapeutic PT/INR. The patient is also on a combination of metoprolol and amiodarone Plan The patient was seen and evaluated by Dr. Azevedo. She is improved today as compared to yesterday. Currently in a -2 L balance. She is currently on a Lasix drip at 10 mg per hour. We'll continue with her current medications. We' ll increase her activity as tolerated. We'll continue to follow and make further recommendations based on her clinical status. I, the cosigning physician, performed a history & physical examination of the patient. Lungs sounds crackles in the bilateral posterior bases. Maintaining good O2 saturations in the 90s on room air. I discussed the assessment and plan of care with my nurse practitioner, Gaby Soliz. I attest to the above note as dictated by her.
--- NOTE | 2017-08-18 16:33 | PN ---
PROGRESS NOTE Mrs. Nichols is a 66-year-old female with a known history of chronic kidney disease, history of congestive heart failure on basis of diastolic dysfunction, paroxysmal atrial fibrillation who presented with worsening peripheral edema. She is feeling slightly better today, but she continued to have a lot of peripheral edema. She denies any dizziness or palpitation. She denies any nausea. She continues to be at this time on amiodarone 100 mg daily, Lipitor 40 mg daily, IV Lasix, lisinopril 10 mg twice a day, metolazone 2.5 mg daily, metoprolol 50 mg twice a day in addition to Coumadin. PHYSICAL EXAMINATION: Blood pressure 137/70 with a heart in the 60s. LUNGS: With decreased breath sounds at the base. HEART: Regular rate and rhythm. S1, S2. No S3 with a systolic murmur. ABDOMEN: Soft, obese, nontender. EXTREMITIES: +2 to 3 edema. LAB DATA: BUN and creatinine 15 and 1.47. INR 1.9. IMPRESSION: 1. Exacerbation of congestive heart failure on the basis of diastolic dysfunction. 2. Renal failure. 3. Paroxysmal atrial fibrillation. 4. Hypertension. 5. Obesity. RECOMMENDATION: We will continue present therapy. Continue on the IV Lasix and metolazone was added to her regimen. We will follow her renal function closely and depending on her progress, further recommendation will be made. MMODL / IJN: [id number] /
[2017-08-18 17:19] LABS: Glucose,Whole Blood 148 mg/dL (75-99)
[2017-08-18] MEDS ORDERED: WARFARIN 2.5 MG TAB PO SCH (18:00)
[2017-08-18] MEDS: ATORVASTATIN 40 MG TAB PO SCH (21:01)
[2017-08-18] MEDS: INSULIN DETEMIR 100 UNIT/ML 10 ML VIAL SQ SCH (21:22)
[2017-08-18 21:31] LABS: Glucose,Whole Blood 126 mg/dL (75-99)
--- NOTE | 2017-08-18 22:03 | PN ---
PROGRESS NOTE DATE OF SERVICE: 08/18/2017 PRESENTING COMPLAINT: Short of breath. INTERVAL HISTORY: The patient presents with CHF exacerbation on a Lasix drip, has been a total of -6 L until now. Edema is coming down. Breathing is a shade better. Sitting up, tired appearing. REVIEW OF SYSTEMS: Done for constitutional, cardiovascular, GI, pulmonary; relevant findings as above. CURRENT MEDICATIONS: Include IV Lasix drip. EXAMINATION: Temperature 98.2, pulse 64, respirations 20, blood pressure 133/69, pulse ox 94% on room air. GENERAL APPEARANCE: Sitting forward in a chair, tired-appearing. EYES: Pupils equal. Conjunctivae normal. HEENT: External appearance of nose, ears normal. Oral cavity normal. NECK: JVD not raised. Mass not palpable. RESPIRATORY: Effort increased. LUNGS: Decreased breath sounds. CARDIOVASCULAR: First and second sounds normal. Significant edema still present. ABDOMEN: Distended, soft. Liver and spleen not palpable. PSYCHIATRY: Alert and oriented x3. Mood and affect tired-appearing. INVESTIGATIONS: INR 1.9. BUN 50, creatinine 1.47. ASSESSMENT: 1. Acute on chronic congestive heart failure exacerbation from diastolic dysfunction. Ejection fraction 60%, slow to respond. 2. Acute renal failure probably prerenal. Patient's creatinine bumped up from before, baseline being 1.21. 3. Chronic cor pulmonale secondary to pulmonary hypertension. 4. Paroxysmal atrial fibrillation, chronically on Coumadin. 5. Hypothyroidism. 6. Obstructive sleep apnea, does not use CPAP machine. 7. Morbid obesity, BMI greater than 40. 8. Hyperlipidemia. 9. Diabetes mellitus type 2, chronically on insulin. 10.Chronic hypoxic respiratory failure on 3L oxygen at home. 11.Secondary pulmonary hypertension, moderate to severe secondary to chronic obstructive pulmonary disease. 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 PLAN: Continue to diurese the patient. We will put the patient on fluid restriction of 1600 mL a day. The patient's creatinine has started to come down. The patient is still slow to respond. Will need at least 24 to 48 hours further of Lasix drip. Will also add Gibson wraps. Care was discussed with the patient. MMODL / IJN: [id number] /
[2017-08-19] MEDS: ACETAMINOPHEN TAB 325 MG TAB PO PRN (05:01)
[2017-08-19] MEDS: LEVOTHYROXINE 100 MCG TAB PO SCH (06:48)
[2017-08-19 07:09] LABS: Glucose,Whole Blood 198 mg/dL (75-99)
[2017-08-19] MEDS: FERROUS SULFATE 325 MG TAB PO SCH ×2 (07:43→17:02)
[2017-08-19] MEDS: METOPROLOL TARTRATE 50 MG TAB PO SCH ×2 (07:43→23:20)
[2017-08-19] MEDS: FAMOTIDINE 20 MG TAB PO SCH ×2 (07:43→20:30)
[2017-08-19] MEDS: AMIODARONE 100 MG TAB PO SCH (07:43)
[2017-08-19] MEDS: INSULIN ASPART 100 UNIT/ML 1 ML 10 ML VIAL SQ SCH ×7 (07:43→21:48)
[2017-08-19] MEDS: METOLAZONE 2.5 MG TAB PO SCH (07:43)
[2017-08-19] MEDS: NITROGLYCERIN OINT 1 INCH/GM PACKET TOPICAL SCH ×2 (07:43→12:31)
[2017-08-19] MEDS: LISINOPRIL 10 MG TAB PO SCH ×2 (07:44→22:00)
[2017-08-19] MEDS: NYSTATIN 100,000 UNIT/GM POWD 15 GM TOPICAL SCH ×3 (07:47→22:00)
[2017-08-19] MEDS: SYMBICORT 160-4.5 MCG INHALER INHALATION SCH ×2 (07:56→18:49)
[2017-08-19 09:21] LABS: INR 1.9 (<1.2)
[2017-08-19 09:25] LABS: Calcium 8.6 mg/dL (8.4-10.2); Potassium 3.9 mmol/L (3.5-5.1)
--- NOTE | 2017-08-19 09:28 | P.PN ---
Subjective Patient is seen in follow-up for acute kidney injury and chronic kidney disease. Patient has chronic kidney disease stage III with baseline creatinine in the range of 1.2-1.3 secondary to cardiorenal syndrome. Creatinine was 1.7 on admission and was 1.47 as of yesterday. She is maintained Lasix drip at 10 mL an hour. Her urine output was over 9 L in the last 24 hours. Edema is improving. Oral intake is good. No vomiting or diarrhea. Vital signs are stable. General: The patient appeared well nourished and normally developed. HEENT: Head exam is unremarkable. Neck is without jugular venous distension. LUNGS: Lungs are clear to auscultation and percussion. Breath sounds decreased. HEART: Rate and Rhythm are regular. First and second heart sounds normal. No murmurs, rubs or gallops. ABDOMEN: Abdominal exam reveals normal bowel sounds. Non-tender and non- distended. No evidence of peritonitis. EXTREMITITES: 2+ edema. Objective - Vital Signs Vital signs: Vital Signs Temp 97.1 F L 08/19/17 06:00 Pulse 66 08/19/17 06:00 Resp 20 08/19/17 06:00 BP 120/54 08/19/17 06:00 Pulse Ox 92 L 08/19/17 06:00 Intake & Output 08/18/17 08/19/17 08/19/17 18:59 06:59 18:59 Intake Total 1269.167 680 240 Output Total 4550 4900 100 Balance -3280.833 -4220 140 Weight 133.538 kg Intake: IV 80 Furosemide 250 mg In 80 Sodium Chloride 0.9% 225 ml @ 10 MG/HR 10 mls/hr IVP .Q24H [facility] Rx#: [id number] Intake, IV Titration 229.167 Amount Furosemide 250 mg In 229.167 Sodium Chloride 0.9% 225 ml @ 10 MG/HR 10 mls/hr IVP .Q24H [facility] Rx#: [id number] Oral 960 680 240 Output: Urine 4550 4900 100 Other: Voiding Method Toilet # Voids 3 # Bowel Movements 0 - Labs CBC & Chem 7: 08/16/17 10:55 08/18/17 08:17 Labs: Abnormal Lab Results - Last 24 Hours (Table) 08/18/17 08/18/17 08/18/17 Range/Units 11:55 17:14 21:21 PT (9.0-12.0) sec INR (<1.2) POC Glucose (mg/dL) 148 H 148 H 126 H (75-99) mg/dL 08/19/17 08/19/17 Range/Units 06:56 08:20 PT 17.0 H (9.0-12.0) sec INR 1.9 H (<1.2) POC Glucose (mg/dL) 198 H (75-99) mg/dL Assessment and Plan Plan: Assessment: #1. Nonoliguric acute kidney injury mostly prerenal secondary to cardiorenal syndrome. Creatinine 1.7 on admission and is 1.47 as of yesterday. Urinalysis from last month was benign. #2. Volume overload. Improving. She is maintaining a net negative fluid balance. #3. Dyspnea secondary to acute exacerbation of diastolic CHF. #4. Moderate pulmonary hypertension. #5. Chronic kidney disease stage III secondary to cardiorenal syndrome with baseline creatinine in the range of 1.2-1.3. #6. Morbid obesity. #7. Atrial fibrillation maintained on amiodarone and metoprolol. Also on Coumadin for anticoagulation. Plan: Continue with Lasix drip at 10 mL an hour for now. Maintain metolazone 2.5 mg daily. Low-salt diet. 1500 mL fluid restriction. Avoid nephrotoxic agents and hypotensive episodes. Repeat electrolytes in the morning. Follow-up morning labs.
[2017-08-19] MEDS: FUROSEMIDE 250 MG in SODIUM CHLORIDE 0.9% 225 ML IVP SCH (10:19)
[2017-08-19 11:58] LABS: Glucose,Whole Blood 245 mg/dL (75-99)
--- NOTE | 2017-08-19 14:25 | P.PN ---
Subjective Progress Note Date: 08/19/17 This is a 66-year-old female patient, morbidly obese, along with history of multiple other medical problems including congestion heart failure with diastolic dysfunction and based on the recent echocardiogram shows normal ejection fraction yet she has moderate severe pulmonary hypertension and no significant valvular abnormalities have been noted, in addition, the patient has chronic lower extremity edema, COPD, diabetes, hypertension, hyperlipidemia , secondary pulmonary hypertension and chronic bronchial asthma. The patient has severe obstructive sleep apnea however she has not been tolerant to CPAP therapy. The patient's sleep apnea has been severe. The patient was diagnosed having severe CHATO treated with a BiPAP pressure of 22/18 cm of water and currently she is not utilizing any treatment. The patient came into the hospital because of worsening shortness of breath and some weight gain and increased lower extremity edema. Her proBNP level is at 1740. Her current body mass index is 59.1 and her body weight is 141.9 kg. Going back on the records, the patient has gained at least 10-12 kg since her last hospitalization back in June 2017. Back then she is to weigh 128 -130 kg. A repeat echocardiogram was done in June 2017 and the patient has a moderate concentric left ventricular hypertrophy, ejection fraction of 55-60%, mild aortic stenosis, moderate to severe pulmonary hypertension with a PA pressure of 51 and there is dilatation of the IVC consistent with elevated right atrial pressure. No pericardial effusion. This patient is on long-term articulation with warfarin. PT/INR is therapeutic at this point. The patient has been maintained on amiodarone for rate control in addition to metoprolol. The patient has been on diuretics with Lasix 40 mg by mouth twice a day. She has insulin-dependent diabetes mellitus. Note that the creatinine is up to 1.7 from a baseline of 1.2 from her latest admission. On 08/17/2017 the patient is feeling better compared to yesterday pH is diuresing nicely with IV Lasix. The exact input output has not been measured and I made recommendations to the nursing staff to collect the urine output. The patient has signs of fluid overload for now and she has it sees edema in lower extremities bilaterally. The renal function is stable with a creatinine of 1.5. No significant hypokalemia and potassium level is at 4.1. She is receiving 4 L of IV Lasix every 8 hours. The PT/INR is therapeutic for now. She is less short of breath compared to yesterday. No other significant events over the past 24 hours. On 08/18/2017, the patient is being diabetes with Lasix drip at the rate of 10 mg an hour. Reports improvement in diuresis over the past 24 hours. Zaroxolyn was also elevated at 2.5 mg daily basis. She is getting less short of breath. Her volume status is also improving. Her BMI is currently at 55.6 and the patient has produced 4.2 L of urine output yesterday and not at 9.4 L of urine output today with these changes. As such, her ability to diabetes has improved with a combination of diuretics. Creatinine is stable at 1.5. BUN is up to 40. Potassium level is at 3.9. INR is at 1.9. Objective - Vital Signs Vital signs: Vital Signs Temp 97.1 F L 08/19/17 06:00 Pulse 66 08/19/17 06:00 Resp 20 08/19/17 06:00 BP 120/54 08/19/17 06:00 Pulse Ox 92 L 08/19/17 06:00 Intake & Output 08/18/17 08/19/17 08/19/17 18:59 06:59 18:59 Intake Total 1269.167 680 789.333 Output Total 4550 4900 100 Balance -3280.833 -4220 689.333 Weight 133.538 kg Intake: IV 80 80 Furosemide 250 mg In 80 80 Sodium Chloride 0.9% 225 ml @ 10 MG/HR 10 mls/hr IVP .Q24H [facility] Rx#: [id number] Intake, IV Titration 229.167 229.333 Amount Furosemide 250 mg In 229.167 229.333 Sodium Chloride 0.9% 225 ml @ 10 MG/HR 10 mls/hr IVP .Q24H [facility] Rx#: [id number] Oral 960 680 480 Output: Urine 4550 4900 100 Other: Voiding Method Toilet # Voids 3 # Bowel Movements 0 - Exam GENERAL EXAM: Alert, pleasant, 66-year-old obese white female, comfortable in no apparent distress. HEAD: Normocephalic/atraumatic. EYES: Normal reaction of pupils, equal size. Conjunctiva pink, sclera white. NOSE: Clear with pink turbinates. THROAT: No erythema or exudates. Mallampati class IV with significant crowding of the posterior oropharynx NECK: No masses, no JVD, no thyroid enlargement, no adenopathy. CHEST: No chest wall deformity. Symmetrical expansion. LUNGS: Equal air entry with no crackles, wheeze, rhonchi or dullness. Diminished air entry noted bilaterally along with some limited bibasilar crackles CVS: Regular rate and rhythm, normal S1 and S2, no gallops, no murmurs, no rubs ABDOMEN: Soft, nontender. No hepatosplenomegaly, normal bowel sounds, no guarding or rigidity. EXTREMITIES: No clubbing, no edema, no cyanosis, 2+ pulses and upper and lower extremities. Patient has increased edema in lower extremities bilaterally MUSCULOSKELETAL: Muscle strength and tone normal. SPINE: No scoliosis or deformity SKIN: No rashes CENTRAL NERVOUS SYSTEM: Alert and oriented -3. No focal deficits, tone is normal in all 4 extremities. PSYCHIATRIC: Alert and oriented -3. Appropriate affect. Intact judgment and insight. - Labs CBC & Chem 7: 08/16/17 10:55 08/19/17 08:20 Labs: Abnormal Lab Results - Last 24 Hours (Table) 08/18/17 08/18/17 08/19/17 Range/Units 17:14 21:21 06:56 PT (9.0-12.0) sec INR (<1.2) Chloride (98-107) mmol/L Carbon Dioxide (22-30) mmol/L BUN (7-17) mg/dL Creatinine (0.52-1.04) mg/dL Glucose (74-99) mg/dL POC Glucose (mg/dL) 148 H 126 H 198 H (75-99) mg/dL 08/19/17 08/19/17 08/19/17 Range/Units 08:20 08:20 11:40 PT 17.0 H (9.0-12.0) sec INR 1.9 H (<1.2) Chloride 91 L (98-107) mmol/L Carbon Dioxide 40 H* (22-30) mmol/L BUN 45 H (7-17) mg/dL Creatinine 1.59 H (0.52-1.04) mg/dL Glucose 202 H (74-99) mg/dL POC Glucose (mg/dL) 245 H (75-99) mg/dL Assessment and Plan Plan: Assessment 1 acute on chronic hypoxic respiratory failure with worsening shortness of breath and fluid overload with early signs of pulmonary edema based on chest x- ray findings. 2 CHF with diastolic dysfunction and concentric left ventricular hypertrophy with moderately severe in my hypertension which is secondary in nature 3 suspected bicuspid aortic valve based on a previous TIMOTHY that was done in 2016 4 secondary pulmonary potential and evidence of elevation the right atrial pressures, multifactorial related to valvular heart disease, hypertensive heart disease and diastolic dysfunction and obstructive sleep apnea 5 obstructive sleep apnea severe nontolerant to BiPAP therapy which is supposed to be at a pressure of 22/18 cm of water, her baseline AHI is at 92 6 chronic lower extremity edema 7 obesity with a current BMI of 59 8 diabetes mellitus 9 hypertension 10 hypothyroidism 11 chronic episodic cellulitis of the lower extremities related to chronic lower extremities edema 12 chronic renal failure with fluctuating renal function based on factors. Creatinine remains stable at 1.59. 13 normal coronaries based on a previous cardiac catheterization without evidence of any significant atherosclerotic heart disease 14 chronic bronchial asthma 15 chronic atrial fibrillation maintained on lifelong and to coagulation with warfarin with a therapeutic PT/INR. The patient is also on a combination of metoprolol and amiodarone Plan Continue Lasix drip. Continue Zaroxolyn. The patient is producing more than 10 L of urine output since this change. Improvement in the volume status is being noted. Renal function remains stable. There is some development of metabolic alkalosis in association with aggressive diuresis. This is something to monitor and watch for. BUN is up to 45. Creatinine stable at 1.5. We'll follow.
--- NOTE | 2017-08-19 16:19 | PN ---
PROGRESS NOTE DATE OF SERVICE: August 19, 2017. PRESENTING COMPLAINT: Short of breath, edema. INTERVAL HISTORY: The patient has CHF exacerbation, has been on Lasix drip and up until now has been negative 11 L of fluid. Edema coming down. Gibson wrap. Tolerating a diet. Breathing continues to improve slowly. Sitting up in a chair. Tired. REVIEW OF SYSTEMS: Done for constitutional, cardiovascular, GI, pulmonary and relevant findings as above. CURRENT MEDICATIONS: Include IV Lasix and Zaroxolyn. PHYSICAL EXAMINATION: Temperature 97.1, pulse 66, respiratory 20, blood pressure 120/54, pulse ox 92% on 2 L. GENERAL APPEARANCE: Sitting up in a chair, tired appearing. Eyes: Pupils are equal. Conjunctivae normal. HEENT external appearance of nose and ears normal. Oral cavity normal. Neck JVD unable to assess. Mass not palpable. Respiratory effort increased. Lungs decreased breath sounds. Cardiovascular: First and second sounds normal. Edema present. ABDOMEN: Distended, soft. Liver and spleen not palpable. Psychiatry: Alert and oriented times three. Mood and affect tired-appearing. INVESTIGATIONS: INR 1.9, potassium 3.9, bicarb of 40, BUN 45, creatinine 1.59. Accu-Cheks noted. ASSESSMENT: 1. Acute on chronic congestive heart failure exacerbation from diastolic dysfunction. ejection fraction 60%. Slow to respond. Patient improving slowly. The patient now 11 L of negative fluid balance. 2. Acute renal failure, element of prerenal. 3. Chronic cor pulmonale secondary to pulmonary hypertension. 4. Paroxysmal atrial fibrillation chronically on Coumadin. 5. Hypothyroidism. 6. Obstructive sleep apnea does not use CPAP machine. 7. Morbid obesity BMI greater than 40. 8. Hyperlipidemia. 9. Diabetes mellitus type 2, chronically on insulin. 10.Chronic hypoxic respiratory failure on 3 L oxygen at home. 11.Secondary pulmonary hypertension, moderate to severe secondary to chronic obstructive pulmonary disease. 12.Chronic kidney disease stage 3 probably from hypertensive nephrosclerosis. PLAN: Continue to diurese the patient. The patient remains on Lasix drip. Follow. Patient probably needs at least 24 more hours of the Lasix drip. Continue care. Discussed with the patient. MMODL / IJN: [id number] /
--- NOTE | 2017-08-19 16:52 | PN ---
PROGRESS NOTE HISTORY: Mrs. Nichols is a 66-year-old female who presented with symptoms of progressive dyspnea and diastolic dysfunction heart failure. She has history of paroxysmal atrial fibrillation. History of chronic kidney disease. She is feeling better this morning. Her breathing is better. She denies any symptoms of chest pain. She denies any dizziness or palpitation. She continues to be on IV Lasix drip, amiodarone 100 mg daily, Lipitor 40 mg daily, insulin, lisinopril 10 mg twice a day, metolazone 2.5 mg daily, metoprolol tartrate 50 mg twice a day, and nitro paste 1 inch q.6 hours in addition to Coumadin. PHYSICAL EXAMINATION: Blood pressure 120/50 with a heart rate in the 60s. LUNGS: With decreased breath sounds at the bases. No wheezes. HEART: Regular rate and rhythm. S1, S2. No S3. No rub. ABDOMEN: Soft, nontender. Extremities: +2 edema. LAB DATA: Revealed BUN and creatinine 45, 1.59, potassium of 3.9. Her weight is down 5 kg. IMPRESSION: 1. Congestive heart failure on the basis of diastolic dysfunction. 2. Paroxysmal atrial fibrillation. 3. Renal failure. RECOMMENDATIONS: I will stop her nitro paste. Continue rest of medical regimen. Follow her renal function. I would expect by tomorrow, we should be able to stop the IV Lasix drip. Depending on her progress, further recommendations will be made. MMODL / IJN: [id number] /
[2017-08-19] MEDS: WARFARIN 5 MG TAB PO SCH (17:02)
[2017-08-19 17:15] LABS: Glucose,Whole Blood 180 mg/dL (75-99)
[2017-08-19] MEDS: ATORVASTATIN 40 MG TAB PO SCH (20:30)
[2017-08-19 21:11] LABS: Glucose,Whole Blood 203 mg/dL (75-99)
[2017-08-19] MEDS: INSULIN DETEMIR 100 UNIT/ML 10 ML VIAL SQ SCH (21:49)
[2017-08-20] MEDS: LEVOTHYROXINE 100 MCG TAB PO SCH (05:41)
[2017-08-20 07:08] LABS: Glucose,Whole Blood 226 mg/dL (75-99)
[2017-08-20] MEDS: INSULIN ASPART 100 UNIT/ML 1 ML 10 ML VIAL SQ SCH ×7 (07:43→21:16)
[2017-08-20] MEDS: METOPROLOL TARTRATE 50 MG TAB PO SCH ×2 (07:43→20:56)
[2017-08-20] MEDS: FAMOTIDINE 20 MG TAB PO SCH (07:43)
[2017-08-20] MEDS: METOLAZONE 2.5 MG TAB PO SCH (07:43)
[2017-08-20] MEDS: AMIODARONE 100 MG TAB PO SCH (07:43)
[2017-08-20] MEDS: LISINOPRIL 10 MG TAB PO SCH ×2 (07:43→20:56)
[2017-08-20] MEDS: FERROUS SULFATE 325 MG TAB PO SCH ×2 (07:43→17:38)
[2017-08-20] MEDS: NYSTATIN 100,000 UNIT/GM POWD 15 GM TOPICAL SCH ×3 (07:44→20:57)
[2017-08-20] MEDS: ACETAMINOPHEN TAB 325 MG TAB PO PRN (08:18)
[2017-08-20 08:28] LABS: INR 1.7 (<1.2); Prothrombin Time 15.5 sec (9.0-12.0)
[2017-08-20 08:48] LABS: Calcium 8.8 mg/dL (8.4-10.2); Magnesium 2.1 mg/dL (1.6-2.3); Potassium 3.6 mmol/L (3.5-5.1)
--- NOTE | 2017-08-20 10:30 | P.PN ---
Subjective Patient is seen in follow-up for acute kidney injury and chronic kidney disease. Patient has chronic kidney disease stage III with baseline creatinine in the range of 1.2-1.3 secondary to cardiorenal syndrome. Creatinine was 1.7 on admission and did come down to 1.47 this admission. It is 1.90 today. She is maintained Lasix drip at 10 mL an hour. Her urine output was over 5 L in the last 24 hours. Edema is improving. Oral intake is good. No vomiting or diarrhea. Her bicarb level is up to 41 today. Vital signs are stable. General: The patient appeared well nourished and normally developed. HEENT: Head exam is unremarkable. Neck is without jugular venous distension. LUNGS: Lungs are clear to auscultation and percussion. Breath sounds decreased. HEART: Rate and Rhythm are regular. First and second heart sounds normal. No murmurs, rubs or gallops. ABDOMEN: Abdominal exam reveals normal bowel sounds. Non-tender and non- distended. No evidence of peritonitis. EXTREMITITES: 2+ edema. Objective - Vital Signs Vital signs: Vital Signs Temp 96.5 F L 08/20/17 05:25 Pulse 80 08/20/17 07:42 Resp 16 08/20/17 05:25 BP 120/73 08/20/17 07:42 Pulse Ox 95 08/20/17 05:25 Intake & Output 08/19/17 08/20/17 08/20/17 18:59 06:59 18:59 Intake Total 789.333 Output Total 2200 3150 Balance -1410.667 -3150 Weight 128.6 kg Intake: IV 80 Furosemide 250 mg In 80 Sodium Chloride 0.9% 225 ml @ 10 MG/HR 10 mls/hr IVP .Q24H [facility] Rx#: [id number] Intake, IV Titration 229.333 Amount Furosemide 250 mg In 229.333 Sodium Chloride 0.9% 225 ml @ 10 MG/HR 10 mls/hr IVP .Q24H [facility] Rx#: [id number] Oral 480 Output: Urine 2200 3150 Other: Voiding Method Toilet Toilet # Bowel Movements 0 - Labs CBC & Chem 7: 08/16/17 10:55 08/20/17 07:27 Labs: Abnormal Lab Results - Last 24 Hours (Table) 08/19/17 08/19/1718 Range/Units 11:40 17:00 21:02 PT (9.0-12.0) sec INR (<1.2) Chloride (98-107) mmol/L Carbon Dioxide (22-30) mmol/L BUN (7-17) mg/dL Creatinine (0.52-1.04) mg/dL Glucose (74-99) mg/dL POC Glucose (mg/dL) 245 H 180 H 203 H (75-99) mg/dL 08/20/17 08/20/17 08/20/17 Range/Units 06:59 07:27 07:27 PT 15.5 H (9.0-12.0) sec INR 1.7 H (<1.2) Chloride 88 L (98-107) mmol/L Carbon Dioxide 41 H* (22-30) mmol/L BUN 48 H (7-17) mg/dL Creatinine 1.90 H (0.52-1.04) mg/dL Glucose 241 H (74-99) mg/dL POC Glucose (mg/dL) 226 H (75-99) mg/dL Assessment and Plan Plan: Assessment: #1. Nonoliguric acute kidney injury mostly prerenal secondary to cardiorenal syndrome. Creatinine 1.7 on admission and did come down to 1.47 this admission - 1.9 today. Urinalysis from last month was benign. #2. Volume overload. Improving. She is maintaining a net negative fluid balance. #3. Dyspnea secondary to acute exacerbation of diastolic CHF. #4. Moderate pulmonary hypertension. #5. Chronic kidney disease stage III secondary to cardiorenal syndrome with baseline creatinine in the range of 1.2-1.3. #6. Morbid obesity. #7. Atrial fibrillation maintained on amiodarone and metoprolol. Also on Coumadin for anticoagulation. #8. Metabolic alkalosis. Partially due to underlying compensation for chronic respiratory acidosis from COPD. Further worsened with diuresis. Plan: Discontinue Lasix drip. Start Lasix 60 mg IV twice daily. Add Diamox 250 mg IV twice daily. Low-salt diet. 1500 mL fluid restriction. Avoid nephrotoxic agents and hypotensive episodes. Repeat electrolytes in the morning.
[2017-08-20] MEDS: SYMBICORT 160-4.5 MCG INHALER INHALATION SCH ×2 (11:02→19:50)
[2017-08-20] MEDS: FUROSEMIDE 10 MG/ML 10 ML VIAL IV SCH ×2 (11:14→20:56)
[2017-08-20 12:05] LABS: Glucose,Whole Blood 301 mg/dL (75-99)
--- NOTE | 2017-08-20 12:33 | P.PN ---
Subjective Progress Note Date: 08/20/17 Principal diagnosis: Acute on chronic hypoxic rest or a failure with worsening shortness of breath secondary to acute diastolic congestive heart failure This is a 66-year-old female patient, morbidly obese, along with history of multiple other medical problems including congestion heart failure with diastolic dysfunction and based on the recent echocardiogram shows normal ejection fraction yet she has moderate severe pulmonary hypertension and no significant valvular abnormalities have been noted, in addition, the patient has chronic lower extremity edema, COPD, diabetes, hypertension, hyperlipidemia , secondary pulmonary hypertension and chronic bronchial asthma. The patient has severe obstructive sleep apnea however she has not been tolerant to CPAP therapy. The patient's sleep apnea has been severe. The patient was diagnosed having severe CHATO treated with a BiPAP pressure of 22/18 cm of water and currently she is not utilizing any treatment. The patient came into the hospital because of worsening shortness of breath and some weight gain and increased lower extremity edema. Her proBNP level is at 1740. Her current body mass index is 59.1 and her body weight is 141.9 kg. Going back on the records, the patient has gained at least 10-12 kg since her last hospitalization back in June 2017. Back then she is to weigh 128 -130 kg. A repeat echocardiogram was done in June 2017 and the patient has a moderate concentric left ventricular hypertrophy, ejection fraction of 55-60%, mild aortic stenosis, moderate to severe pulmonary hypertension with a PA pressure of 51 and there is dilatation of the IVC consistent with elevated right atrial pressure. No pericardial effusion. This patient is on long-term articulation with warfarin. PT/INR is therapeutic at this point. The patient has been maintained on amiodarone for rate control in addition to metoprolol. The patient has been on diuretics with Lasix 40 mg by mouth twice a day. She has insulin-dependent diabetes mellitus. Note that the creatinine is up to 1.7 from a baseline of 1.2 from her latest admission. On 08/17/2017 the patient is feeling better compared to yesterday pH is diuresing nicely with IV Lasix. The exact input output has not been measured and I made recommendations to the nursing staff to collect the urine output. The patient has signs of fluid overload for now and she has it sees edema in lower extremities bilaterally. The renal function is stable with a creatinine of 1.5. No significant hypokalemia and potassium level is at 4.1. She is receiving 4 L of IV Lasix every 8 hours. The PT/INR is therapeutic for now. She is less short of breath compared to yesterday. No other significant events over the past 24 hours. On 08/18/2017, the patient is being diabetes with Lasix drip at the rate of 10 mg an hour. Reports improvement in diuresis over the past 24 hours. Zaroxolyn was also elevated at 2.5 mg daily basis. She is getting less short of breath. Her volume status is also improving. Her BMI is currently at 55.6 and the patient has produced 4.2 L of urine output yesterday and not at 9.4 L of urine output today with these changes. As such, her ability to diabetes has improved with a combination of diuretics. Creatinine is stable at 1.5. BUN is up to 40. Potassium level is at 3.9. INR is at 1.9. On 08/20/2017 patient seen in follow-up on medical surgical floor. She is sitting up in the chair, denies any acute distress, currently on liters per nasal cannula with O2 sat 95%. She is afebrile, hemodynamically stable. Appears fairly comfortable at rest, denies any worsening dyspnea. Still has the exertional dyspnea. Has been able to ambulate to the bathroom, tolerates activity well. She is currently on IV Lasix drip at 10 mg per hour, and her current weight is 128.6 kg, she is down 4.9 kg in the last 24 hours. Lung sounds are positive for diminished breath sounds bilaterally, with fine rales at both bases. Still has some mild nonpitting lower extremity edema, that this is improving. Today's labs revealed INR of 1.7, and the patient is on Coumadin for chronic atrial fibrillation. Sodium is 139, potassium is 3.6, chloride is 88, CO2 is 41, and nephrology ordered Diamox for worsening metabolic alkalosis related to diuresis. BUN is 48, creatinine is 1.90. Objective - Vital Signs Vital signs: Vital Signs Temp 96.5 F L 08/20/17 05:25 Pulse 80 08/20/17 07:42 Resp 16 08/20/17 05:25 BP 120/73 08/20/17 07:42 Pulse Ox 95 08/20/17 05:25 Intake & Output 08/19/17 08/20/1718 18:59 06:59 18:59 Intake Total 789.333 Output Total 2200 3150 650 Balance -1410.667 -3150 -650 Weight 128.6 kg Intake: IV 80 Furosemide 250 mg In 80 Sodium Chloride 0.9% 225 ml @ 10 MG/HR 10 mls/hr IVP .Q24H AIDA Rx#: [id number] Intake, IV Titration 229.333 Amount Furosemide 250 mg In 229.333 Sodium Chloride 0.9% 225 ml @ 10 MG/HR 10 mls/hr IVP .Q24H AIDA Rx#: [id number] Oral 480 Output: Urine 2200 3150 650 Other: Voiding Method Toilet Toilet # Bowel Movements 0 - Exam GENERAL EXAM: Alert, pleasant, 66-year-old obese white female, comfortable in no apparent distress. HEAD: Normocephalic/atraumatic. EYES: Normal reaction of pupils, equal size. Conjunctiva pink, sclera white. NOSE: Clear with pink turbinates. THROAT: No erythema or exudates. Mallampati class IV with significant crowding of the posterior oropharynx NECK: No masses, no JVD, no thyroid enlargement, no adenopathy. CHEST: No chest wall deformity. Symmetrical expansion. LUNGS: Equal air entry with no crackles, wheeze, rhonchi or dullness. Diminished air entry noted bilaterally along with some limited bibasilar crackles CVS: Regular rate and rhythm, normal S1 and S2, no gallops, no murmurs, no rubs ABDOMEN: Soft, nontender. No hepatosplenomegaly, normal bowel sounds, no guarding or rigidity. EXTREMITIES: No clubbing, no edema, no cyanosis, 2+ pulses and upper and lower extremities. In the appearance of bilateral lower extremity edema is improving , she is diuresing well on IV Lasix drip currently at 10 mg per hour MUSCULOSKELETAL: Muscle strength and tone normal. SPINE: No scoliosis or deformity SKIN: No rashes CENTRAL NERVOUS SYSTEM: Alert and oriented -3. No focal deficits, tone is normal in all 4 extremities. PSYCHIATRIC: Alert and oriented -3. Appropriate affect. Intact judgment and insight. - Labs CBC & Chem 7: 08/16/17 10:55 08/20/17 07:27 Labs: Abnormal Lab Results - Last 24 Hours (Table) 0408/19/17 08/20/17 Range/Units 17:00 21:02 06:59 PT (9.0-12.0) sec INR (<1.2) Chloride (98-107) mmol/L Carbon Dioxide (22-30) mmol/L BUN (7-17) mg/dL Creatinine (0.52-1.04) mg/dL Glucose (74-99) mg/dL POC Glucose (mg/dL) 180 H 203 H 226 H (75-99) mg/dL 08/20/17 08/20/17 08/20/17 Range/Units 07:27 07:27 12:01 PT 15.5 H (9.0-12.0) sec INR 1.7 H (<1.2) Chloride 88 L (98-107) mmol/L Carbon Dioxide 41 H* (22-30) mmol/L BUN 48 H (7-17) mg/dL Creatinine 1.90 H (0.52-1.04) mg/dL Glucose 241 H (74-99) mg/dL POC Glucose (mg/dL) 301 H (75-99) mg/dL Assessment and Plan Plan: Assessment: 1 acute on chronic hypoxic respiratory failure with worsening shortness of breath and fluid overload with early signs of pulmonary edema based on chest x- ray findings. 2 CHF with diastolic dysfunction and concentric left ventricular hypertrophy with moderately severe in my hypertension which is secondary in nature 3 suspected bicuspid aortic valve based on a previous TIMOTHY that was done in 2016 4 secondary pulmonary potential and evidence of elevation the right atrial pressures, multifactorial related to valvular heart disease, hypertensive heart disease and diastolic dysfunction and obstructive sleep apnea 5 obstructive sleep apnea severe nontolerant to BiPAP therapy which is supposed to be at a pressure of 22/18 cm of water, her baseline AHI is at 92 6 chronic lower extremity edema 7 obesity with a current BMI of 59 8 diabetes mellitus 9 hypertension 10 hypothyroidism 11 chronic episodic cellulitis of the lower extremities related to chronic lower extremities edema 12 chronic renal failure with fluctuating renal function based on factors. Creatinine remains stable at 1.59. 13 normal coronaries based on a previous cardiac catheterization without evidence of any significant atherosclerotic heart disease 14 chronic bronchial asthma 15 chronic atrial fibrillation maintained on lifelong and to coagulation with warfarin with a therapeutic PT/INR. The patient is also on a combination of metoprolol and amiodarone Plan Patient is diuresing well, her weight is down by 4.9 kg in last 24 hours, there is improvement in the appearance of her lower extremity edema. She denies any worsening dyspnea, is tolerating ambulation in the room. Nephrology is following, patient developing worsening embolic alkalosis related to diuretics, Diamox was ordered. Vital signs are stable, volume status is improving. She denies any chest pain. I performed a history & physical examination of the patient and discussed their management with my nurse practitioner, Tracie Quiñonez. I reviewed the nurse practitioner's note and agree with the documented findings and plan of care. Lung sounds are positive diminished lung sounds with fine rales at the bases. The findings and the impression was discussed with the patient. I attest to the documentation by the nurse practitioner. Time with Patient: Less than 30
--- NOTE | 2017-08-20 12:51 | P.PN ---
Subjective Progress Note Date: 08/20/17 Mrs. Nichols is a pleasant 66-year-old female past medical history significant for hypertension, diabetes mellitus, dyslipidemia, paroxysmal atrial fibrillation on sales floor team leader anticoagalation with coumadin, asthma, sleep apnea, pulmonary hypertension and history of diastolic heart failure. She sees Dr. Mccormick in the office. She is seen and examined today sitting up in the chair in no acute distress. She has been maintained on a lasix infusion and is diuresing well with a negative fluid balance daily. The last 24 hrs reflects she negative 4560 ml and her weight is down 13 kg since admission. Blood pressure 120/73 heart rate 80. INR 1.7, creatinine 1.9 up from 1.7 on admission, potassium 3.6 and magnesium 2.1. Objective - Vital Signs Vital signs: Vital Signs Temp 96.5 F L 08/20/17 05:25 Pulse 80 08/20/17 07:42 Resp 16 08/20/17 05:25 BP 120/73 08/20/17 07:42 Pulse Ox 95 08/20/17 05:25 Intake & Output 08/19/17 08/20/17 08/20/17 18:59 06:59 18:59 Intake Total 789.333 Output Total 2200 3150 650 Balance -1410.667 -3150 -650 Weight 128.6 kg Intake: IV 80 Furosemide 250 mg In 80 Sodium Chloride 0.9% 225 ml @ 10 MG/HR 10 mls/hr IVP .Q24H AIDA Rx#: [id number] Intake, IV Titration 229.333 Amount Furosemide 250 mg In 229.333 Sodium Chloride 0.9% 225 ml @ 10 MG/HR 10 mls/hr IVP .Q24H AIDA Rx#: [id number] Oral 480 Output: Urine 2200 3150 650 Other: Voiding Method Toilet Toilet # Bowel Movements 0 - Exam GENERAL: Well-appearing, well-nourished and in no acute distress. NECK: Supple without JVD or thyromegaly. LUNGS: Breath sounds clear to auscultation bilaterally. Respiration equal and unlabored. No wheezes, rales or rhonchi. Diminished bilaterally. HEART: Regular rate and rhythm with systolic ejection murmur at the base, no rubs or gallops. S1 and S2 heard. ABDOMEN: Soft, nontender and nonedematous. EXTREMITIES: Normal range of motion, 1+ pitting bilateral lower extremity edema. No clubbing or cyanosis. Peripheral pulses intact. - Labs CBC & Chem 7: 08/16/17 10:55 08/20/17 07:27 Labs: Abnormal Lab Results - Last 24 Hours (Table) 08/19/17 08/19/17 08/20/17 Range/Units 17:00 21:02 06:59 PT (9.0-12.0) sec INR (<1.2) Chloride (98-107) mmol/L Carbon Dioxide (22-30) mmol/L BUN (7-17) mg/dL Creatinine (0.52-1.04) mg/dL Glucose (74-99) mg/dL POC Glucose (mg/dL) 180 H 203 H 226 H (75-99) mg/dL 08/20/17 08/20/17 08/20/17 Range/Units 07:27 07:27 12:01 PT 15.5 H (9.0-12.0) sec INR 1.7 H (<1.2) Chloride 88 L (98-107) mmol/L Carbon Dioxide 41 H* (22-30) mmol/L BUN 48 H (7-17) mg/dL Creatinine 1.90 H (0.52-1.04) mg/dL Glucose 241 H (74-99) mg/dL POC Glucose (mg/dL) 301 H (75-99) mg/dL Assessment and Plan Assessment: ASSESSMENT 1. Acute on chronic diastolic heart failure 2. Moderate pulmonary hypertension 3. Paroxysmal atrial fibrillation on long-term anticoagulation, currently maintaining sinus mechanism with a therapeutic INR. 4. Hypertension 5. Obstructive sleep apnea, noncompliant with BiPAP 6. Aortic stenosis 7. Morbid obesity 8. Diabetes mellitus 9. Chronic kidney disease, GFR 35. Stage IIIB PLAN Transition off lasix infusion to IV doses today and oral tomorrow. Continue to increase activity. Follow renal function. The above impression and plan of care have been discussed and directed by the signing physician. Taryn Paul, nurse practitioner, acting as scribe for signing physician.
[2017-08-20 17:15] LABS: Glucose,Whole Blood 219 mg/dL (75-99)
[2017-08-20] MEDS: WARFARIN 5 MG TAB PO SCH (17:38)
--- NOTE | 2017-08-20 19:26 | PN ---
PROGRESS NOTE DATE OF SERVICE: 08/20/17 PRESENT COMPLAINT: Short of breath, edema. INTERVAL HISTORY: Patient with CHF exacerbation, had been on Lasix drip until earlier today. The patient is close to 13 L in negative fluid balance. Edema has come down. Breathing is much better. Sitting up. REVIEW OF SYSTEMS: Done for constitutional, cardiovascular, GI, pulmonary; relevant findings as above. CURRENT MEDICATIONS: Reviewed that include IV Lasix 60 q.12, IV Diamox. PHYSICAL EXAMINATION: Temperature 97.7, pulse 61, respirations 16, blood pressure 97/51, pulse ox 91% on 3 L. GENERAL APPEARANCE: Sitting up, tired appearing. EYES: Pupils equal. Conjunctivae normal. HEENT: External appearance of nose and ears normal. Oral cavity normal. NECK: JVD unable to assess. Mass not palpable. RESPIRATORY: Effort increased, lungs decreased breath sounds. CARDIOVASCULAR: First and second sounds normal. Edema present, but decreased. ABDOMEN: Distended, soft. Liver and spleen not palpable. PSYCHIATRY: Alert and oriented x3. Mood and affect normal. INVESTIGATIONS: INR 1.7, potassium 3.6, bicarb 41, creatinine is 1.9. ASSESSMENT: 1. Acute on chronic congestive heart failure exacerbation from diastolic dysfunction, ejection fraction 60%, improving with good negative fluid balance. 2. Chronic cor pulmonale secondary to pulmonary hypertension. 3. Paroxysmal atrial fibrillation chronically on Coumadin. 4. Hypothyroidism. 5. Obstructive sleep apnea, does not use CPAP machine. 6. Morbid obesity, BMI greater than 40. 7. Hyperlipidemia. 8. Diabetes mellitus type 2, chronically on insulin. 9. Chronic hypoxic respiratory failure on 3 L oxygen at home. 10.Secondary pulmonary hypertension, moderate to severe secondary to chronic obstructive pulmonary disease. 11.Chronic kidney disease stage 3 probably from hypertensive nephrosclerosis. PLAN: Diuretics were adjusted by Cardiology earlier today. Keep a close eye on the electrolytes. Care was discussed. MMODL / IJN: [id number] /
[2017-08-20] MEDS: ATORVASTATIN 40 MG TAB PO SCH (20:56)
[2017-08-20 21:04] LABS: Glucose,Whole Blood 200 mg/dL (75-99)
[2017-08-20] MEDS: INSULIN DETEMIR 100 UNIT/ML 10 ML VIAL SQ SCH (21:16)
[2017-08-21] MEDS: ACETAMINOPHEN TAB 325 MG TAB PO PRN (03:06)
[2017-08-21] MEDS: LEVOTHYROXINE 100 MCG TAB PO SCH (06:23)
[2017-08-21 07:06] LABS: Glucose,Whole Blood 322 mg/dL (75-99)
[2017-08-21] MEDS: INSULIN ASPART 100 UNIT/ML 1 ML 10 ML VIAL SQ SCH ×7 (07:55→21:50)
[2017-08-21] MEDS: NYSTATIN 100,000 UNIT/GM POWD 15 GM TOPICAL SCH ×3 (07:57→20:54)
[2017-08-21] MEDS: FERROUS SULFATE 325 MG TAB PO SCH ×2 (08:30→17:17)
[2017-08-21] MEDS: AMIODARONE 100 MG TAB PO SCH (08:30)
[2017-08-21] MEDS: FAMOTIDINE 20 MG TAB PO SCH (08:30)
[2017-08-21] MEDS: LISINOPRIL 10 MG TAB PO SCH (08:31)
[2017-08-21] MEDS: METOPROLOL TARTRATE 50 MG TAB PO SCH ×2 (08:31→20:54)
[2017-08-21 08:48] LABS: Prothrombin Time 17.9 sec (9.0-12.0)
[2017-08-21] MEDS ORDERED: FUROSEMIDE 40 MG TAB PO SCH (09:00)
[2017-08-21] MEDS: SYMBICORT 160-4.5 MCG INHALER INHALATION SCH ×2 (09:04→19:33)
[2017-08-21 09:12] LABS: Calcium 8.9 mg/dL (8.4-10.2); Potassium 4.1 mmol/L (3.5-5.1)
[2017-08-21 11:46] LABS: Glucose,Whole Blood 229 mg/dL (75-99)
[2017-08-21] MEDS ORDERED: FUROSEMIDE 10 MG/ML 10 ML VIAL IV STA (12:02)
--- NOTE | 2017-08-21 12:18 | P.PN ---
Subjective Patient is seen in follow-up for acute kidney injury and chronic kidney disease. Patient has chronic kidney disease stage III with baseline creatinine in the range of 1.2-1.3 secondary to cardiorenal syndrome. Creatinine was 1.7 on admission and did come down to 1.47 this admission. It is 2.17 today. Lasix drip has been discontinued and she is now maintained on Lasix 40 mg orally twice daily. Her urine output was over 3 L in the last 24 hours. Edema is improving. Weight is trending down. Oral intake is good. No vomiting or diarrhea. Bicarb level is down to 39. Vital signs are stable. General: The patient appeared well nourished and normally developed. HEENT: Head exam is unremarkable. Neck is without jugular venous distension. LUNGS: Lungs are clear to auscultation and percussion. Breath sounds decreased. HEART: Rate and Rhythm are regular. First and second heart sounds normal. No murmurs, rubs or gallops. ABDOMEN: Abdominal exam reveals normal bowel sounds. Non-tender and non- distended. No evidence of peritonitis. EXTREMITITES: 1+ edema. Objective - Vital Signs Vital signs: Vital Signs Temp 97.4 F L 08/21/17 05:53 Pulse 64 08/21/17 08:16 Resp 16 08/21/17 05:53 BP 111/72 08/21/17 08:16 Pulse Ox 97 08/21/17 05:53 Intake & Output 08/20/17 08/21/17 08/21/17 18:59 06:59 18:59 Intake Total 200 Output Total 3050 400 550 Balance -2850 -400 -550 Weight 126.4 kg Intake: Oral 200 Output: Urine 3050 400 550 Other: Voiding Method Toilet # Voids 1 # Bowel Movements 1 - Labs CBC & Chem 7: 08/16/17 10:55 08/21/17 08:04 Labs: Abnormal Lab Results - Last 24 Hours (Table) 08/20/17 08/20/17 08/21/17 Range/Units 17:08 21:02 06:59 PT (9.0-12.0) sec INR (<1.2) Chloride (98-107) mmol/L Carbon Dioxide (22-30) mmol/L BUN (7-17) mg/dL Creatinine (0.52-1.04) mg/dL Glucose (74-99) mg/dL POC Glucose (mg/dL) 219 H 200 H 322 H (75-99) mg/dL 08/21/17 08/21/17 08/21/17 Range/Units 08:04 08:04 11:39 PT 17.9 H (9.0-12.0) sec INR 2.0 H (<1.2) Chloride 86 L (98-107) mmol/L Carbon Dioxide 39 H (22-30) mmol/L BUN 55 H (7-17) mg/dL Creatinine 2.17 H (0.52-1.04) mg/dL Glucose 277 H (74-99) mg/dL POC Glucose (mg/dL) 229 H (75-99) mg/dL Assessment and Plan Plan: Assessment: #1. Nonoliguric acute kidney injury mostly prerenal secondary to cardiorenal syndrome. Creatinine 1.7 on admission and did come down to 1.47 this admission - 2.17 today. Urinalysis from last month was benign. #2. Volume overload. Improving. She is maintaining a net negative fluid balance. #3. Dyspnea secondary to acute exacerbation of diastolic CHF. #4. Moderate pulmonary hypertension. #5. Chronic kidney disease stage III secondary to cardiorenal syndrome with baseline creatinine in the range of 1.2-1.3. #6. Morbid obesity. #7. Atrial fibrillation maintained on amiodarone and metoprolol. Also on Coumadin for anticoagulation. #8. Metabolic alkalosis. Partially due to underlying compensation for chronic respiratory acidosis from COPD. Further worsened with diuresis. Plan: I will increase Lasix to 60 mg orally twice daily. Discontinue Diamox. Low-salt diet. 1500 mL fluid restriction. Avoid nephrotoxic agents and hypotensive episodes. Repeat electrolytes in the morning. Decrease lisinopril to 10 mg once daily. To hold antihypertensives for systolic blood pressure less than 120.
--- NOTE | 2017-08-21 12:40 | P.PN ---
Subjective Progress Note Date: 08/21/17 Mrs. Nichols is a pleasant 66-year-old female past medical history significant for hypertension, diabetes mellitus, dyslipidemia, paroxysmal atrial fibrillation on watermelon inspector anticoagalation with coumadin, asthma, sleep apnea, pulmonary hypertension and history of diastolic heart failure. She sees Dr. Mccormick in the office. She is seen and examined today sitting up in the chair in no acute distress. She has been maintained on a lasix infusion and is diuresing well with a negative fluid balance daily. The last 24 hrs reflects she negative 4560 ml and her weight is down 13 kg since admission. Blood pressure 120/73 heart rate 80. INR 1.7, creatinine 1.9 up from 1.7 on admission, potassium 3.6 and magnesium 2.1. 08/21/2017 Patient was seen and examined today sitting up in chair in no acute distress. She states she was unable to get any sleep last night so she feels exhausted this morning. The previous 24 hours shows a -3250 mL fluid. She received IV Lasix 2 doses yesterday. Her weight is down another 2 kg. Swelling in her legs is still evident and mildly worse from yesterday. Laboratory data reviewed , INR 2.0, potassium 4.1, creatinine 2.17. Blood pressure 111/72 heart rate 64 afebrile maintaining oxygen saturation on nasal cannula 3 L. Telemetry tracings have been unremarkable. Objective - Vital Signs Vital signs: Vital Signs Temp 97.4 F L 08/21/17 05:53 Pulse 64 08/21/17 08:16 Resp 16 08/21/17 05:53 BP 111/72 08/21/17 08:16 Pulse Ox 97 08/21/17 05:53 Intake & Output 08/20/17 08/21/17 08/21/17 18:59 06:59 18:59 Intake Total 200 Output Total 3050 400 550 Balance -2850 -400 -550 Weight 126.4 kg Intake: Oral 200 Output: Urine 3050 400 550 Other: Voiding Method Toilet # Voids 1 # Bowel Movements 1 - Exam GENERAL: Well-appearing, well-nourished and in no acute distress. NECK: Supple without JVD or thyromegaly. LUNGS: Breath sounds clear to auscultation bilaterally. Respiration equal and unlabored. No wheezes, rales or rhonchi. Diminished bilaterally. HEART: Regular rate and rhythm with systolic ejection murmur at the base, no rubs or gallops. S1 and S2 heard. ABDOMEN: Soft, nontender and nonedematous. EXTREMITIES: Normal range of motion, 2+ pitting bilateral lower extremity edema. No clubbing or cyanosis. Peripheral pulses intact. - Labs CBC & Chem 7: 08/16/17 10:55 08/21/17 08:04 Labs: Abnormal Lab Results - Last 24 Hours (Table) 08/20/17 08/20/17 08/21/17 Range/Units 17:08 21:02 06:59 PT (9.0-12.0) sec INR (<1.2) Chloride (98-107) mmol/L Carbon Dioxide (22-30) mmol/L BUN (7-17) mg/dL Creatinine (0.52-1.04) mg/dL Glucose (74-99) mg/dL POC Glucose (mg/dL) 219 H 200 H 322 H (75-99) mg/dL 08/21/17 08/21/17 08/21/17 Range/Units 08:04 08:04 11:39 PT 17.9 H (9.0-12.0) sec INR 2.0 H (<1.2) Chloride 86 L (98-107) mmol/L Carbon Dioxide 39 H (22-30) mmol/L BUN 55 H (7-17) mg/dL Creatinine 2.17 H (0.52-1.04) mg/dL Glucose 277 H (74-99) mg/dL POC Glucose (mg/dL) 229 H (75-99) mg/dL Assessment and Plan Assessment: ASSESSMENT 1. Acute on chronic diastolic heart failure 2. Moderate pulmonary hypertension 3. Paroxysmal atrial fibrillation on long-term anticoagulation, currently maintaining sinus mechanism with a therapeutic INR. 4. Hypertension 5. Obstructive sleep apnea, noncompliant with BiPAP 6. Aortic stenosis 7. Morbid obesity 8. Diabetes mellitus 9. Chronic kidney disease, GFR 35. Stage IIIB PLAN Give 1 dose of IV Lasix today. Then started 60 mg by mouth twice a day as per recommendations by nephrology. Continue to monitor for another 24 hours. Repeat renal function in the morning. The above impression and plan of care have been discussed and directed by the signing physician. Taryn Paul, nurse practitioner, acting as scribe for signing physician.
--- NOTE | 2017-08-21 14:48 | P.PN ---
Subjective Progress Note Date: 08/21/17 Principal diagnosis: Acute on chronic hypoxic rest or a failure with worsening shortness of breath secondary to acute diastolic congestive heart failure This is a 66-year-old female patient, morbidly obese, along with history of multiple other medical problems including congestion heart failure with diastolic dysfunction and based on the recent echocardiogram shows normal ejection fraction yet she has moderate severe pulmonary hypertension and no significant valvular abnormalities have been noted, in addition, the patient has chronic lower extremity edema, COPD, diabetes, hypertension, hyperlipidemia , secondary pulmonary hypertension and chronic bronchial asthma. The patient has severe obstructive sleep apnea however she has not been tolerant to CPAP therapy. The patient's sleep apnea has been severe. The patient was diagnosed having severe CHATO treated with a BiPAP pressure of 22/18 cm of water and currently she is not utilizing any treatment. The patient came into the hospital because of worsening shortness of breath and some weight gain and increased lower extremity edema. Her proBNP level is at 1740. Her current body mass index is 59.1 and her body weight is 141.9 kg. Going back on the records, the patient has gained at least 10-12 kg since her last hospitalization back in June 2017. Back then she is to weigh 128 -130 kg. A repeat echocardiogram was done in June 2017 and the patient has a moderate concentric left ventricular hypertrophy, ejection fraction of 55-60%, mild aortic stenosis, moderate to severe pulmonary hypertension with a PA pressure of 51 and there is dilatation of the IVC consistent with elevated right atrial pressure. No pericardial effusion. This patient is on long-term articulation with warfarin. PT/INR is therapeutic at this point. The patient has been maintained on amiodarone for rate control in addition to metoprolol. The patient has been on diuretics with Lasix 40 mg by mouth twice a day. She has insulin-dependent diabetes mellitus. Note that the creatinine is up to 1.7 from a baseline of 1.2 from her latest admission. On 08/17/2017 the patient is feeling better compared to yesterday pH is diuresing nicely with IV Lasix. The exact input output has not been measured and I made recommendations to the nursing staff to collect the urine output. The patient has signs of fluid overload for now and she has it sees edema in lower extremities bilaterally. The renal function is stable with a creatinine of 1.5. No significant hypokalemia and potassium level is at 4.1. She is receiving 4 L of IV Lasix every 8 hours. The PT/INR is therapeutic for now. She is less short of breath compared to yesterday. No other significant events over the past 24 hours. On 08/18/2017, the patient is being diabetes with Lasix drip at the rate of 10 mg an hour. Reports improvement in diuresis over the past 24 hours. Zaroxolyn was also elevated at 2.5 mg daily basis. She is getting less short of breath. Her volume status is also improving. Her BMI is currently at 55.6 and the patient has produced 4.2 L of urine output yesterday and not at 9.4 L of urine output today with these changes. As such, her ability to diabetes has improved with a combination of diuretics. Creatinine is stable at 1.5. BUN is up to 40. Potassium level is at 3.9. INR is at 1.9. On 08/20/2017 patient seen in follow-up on medical surgical floor. She is sitting up in the chair, denies any acute distress, currently on liters per nasal cannula with O2 sat 95%. She is afebrile, hemodynamically stable. Appears fairly comfortable at rest, denies any worsening dyspnea. Still has the exertional dyspnea. Has been able to ambulate to the bathroom, tolerates activity well. She is currently on IV Lasix drip at 10 mg per hour, and her current weight is 128.6 kg, she is down 4.9 kg in the last 24 hours. Lung sounds are positive for diminished breath sounds bilaterally, with fine rales at both bases. Still has some mild nonpitting lower extremity edema, that this is improving. Today's labs revealed INR of 1.7, and the patient is on Coumadin for chronic atrial fibrillation. Sodium is 139, potassium is 3.6, chloride is 88, CO2 is 41, and nephrology ordered Diamox for worsening metabolic alkalosis related to diuresis. BUN is 48, creatinine is 1.90. On 08/21/2017 patient seen in follow-up on medical surgical floor. She is complaining of a mild headache this morning, lung sounds are clear, diminished at the bases, she is maintaining a negative fluid balance, and her weight is down by 2.2 kg in the last 24 hours. Her IV Lasix has been discontinued, and she was transitioned to oral Lasix at 60 mg by mouth twice a day. Still has some residual bilateral lower extremity edema 1+. On room air her O2 sat is 93% , she is afebrile, hemodynamically stable. Today's labs show INR of 2.0, sodium is 138, potassium is 4.1, chloride is 86, CO2 is 39, there has been worsening of her renal profile, with BUN of 55, creatinine of 2.17, nephrology is following. Continue with current plan of treatment Objective - Vital Signs Vital signs: Vital Signs Temp 97.4 F L 08/21/17 05:53 Pulse 64 08/21/17 08:16 Resp 16 08/21/17 05:53 BP 111/72 08/21/17 08:16 Pulse Ox 97 08/21/17 05:53 Intake & Output 08/20/17 08/21/17 08/21/17 18:59 06:59 18:59 Intake Total 200 Output Total 3050 400 550 Balance -2850 -400 -550 Weight 126.4 kg Intake: Oral 200 Output: Urine 3050 400 550 Other: Voiding Method Toilet # Voids 1 # Bowel Movements 1 - Exam GENERAL EXAM: Alert, pleasant, 66-year-old obese white female, comfortable in no apparent distress. HEAD: Normocephalic/atraumatic. EYES: Normal reaction of pupils, equal size. Conjunctiva pink, sclera white. NOSE: Clear with pink turbinates. THROAT: No erythema or exudates. Mallampati class IV with significant crowding of the posterior oropharynx NECK: No masses, no JVD, no thyroid enlargement, no adenopathy. CHEST: No chest wall deformity. Symmetrical expansion. LUNGS: Equal air entry with no crackles, wheeze, rhonchi or dullness. Diminished breath sounds at bilateral bases CVS: Regular rate and rhythm, normal S1 and S2, no gallops, no murmurs, no rubs ABDOMEN: Soft, nontender. No hepatosplenomegaly, normal bowel sounds, no guarding or rigidity. EXTREMITIES: No clubbing, no edema, no cyanosis, 2+ pulses and upper and lower extremities. In the appearance of bilateral lower extremity edema is improving , patient is maintaining negative fluid balance on oral Lasix MUSCULOSKELETAL: Muscle strength and tone normal. SPINE: No scoliosis or deformity SKIN: No rashes CENTRAL NERVOUS SYSTEM: Alert and oriented -3. No focal deficits, tone is normal in all 4 extremities. PSYCHIATRIC: Alert and oriented -3. Appropriate affect. Intact judgment and insight. - Labs CBC & Chem 7: 08/16/17 10:55 08/21/17 08:04 Labs: Abnormal Lab Results - Last 24 Hours (Table) 08/20/17 08/20/17 08/21/17 Range/Units 17:08 21:02 06:59 PT (9.0-12.0) sec INR (<1.2) Chloride (98-107) mmol/L Carbon Dioxide (22-30) mmol/L BUN (7-17) mg/dL Creatinine (0.52-1.04) mg/dL Glucose (74-99) mg/dL POC Glucose (mg/dL) 219 H 200 H 322 H (75-99) mg/dL 08/21/17 08/21/17 08/21/17 Range/Units 08:04 08:04 11:39 PT 17.9 H (9.0-12.0) sec INR 2.0 H (<1.2) Chloride 86 L (98-107) mmol/L Carbon Dioxide 39 H (22-30) mmol/L BUN 55 H (7-17) mg/dL Creatinine 2.17 H (0.52-1.04) mg/dL Glucose 277 H (74-99) mg/dL POC Glucose (mg/dL) 229 H (75-99) mg/dL Assessment and Plan Plan: Assessment: 1 acute on chronic hypoxic respiratory failure with worsening shortness of breath and fluid overload with early signs of pulmonary edema based on chest x- ray findings. 2 CHF with diastolic dysfunction and concentric left ventricular hypertrophy with moderately severe in my hypertension which is secondary in nature 3 suspected bicuspid aortic valve based on a previous TIMOTHY that was done in 2016 4 secondary pulmonary potential and evidence of elevation the right atrial pressures, multifactorial related to valvular heart disease, hypertensive heart disease and diastolic dysfunction and obstructive sleep apnea 5 obstructive sleep apnea severe nontolerant to BiPAP therapy which is supposed to be at a pressure of 22/18 cm of water, her baseline AHI is at 92 6 chronic lower extremity edema 7 obesity with a current BMI of 59 8 diabetes mellitus 9 hypertension 10 hypothyroidism 11 chronic episodic cellulitis of the lower extremities related to chronic lower extremities edema 12 chronic renal failure with fluctuating renal function based on factors. Creatinine remains stable at 1.59. 13 normal coronaries based on a previous cardiac catheterization without evidence of any significant atherosclerotic heart disease 14 chronic bronchial asthma 15 chronic atrial fibrillation maintained on lifelong and to coagulation with warfarin with a therapeutic PT/INR. The patient is also on a combination of metoprolol and amiodarone Plan Patient denies any worsening dyspnea, her IV Lasix has been transitioned to oral. His easier, her oxygenation is stable, and the patient is wearing her oxygen intermittently. There has been some worsening of the renal profile, and nephrology is following. Denies any fever or chills, denies any chest pain. Continue current plan of treatment. I performed a history & physical examination of the patient and discussed their management with my nurse practitioner, Tracie Quiñonez. I reviewed the nurse practitioner's note and agree with the documented findings and plan of care. Lung sounds are positive diminished lung sounds at bilateral bases. The findings and the impression was discussed with the patient. I attest to the documentation by the nurse practitioner. Time with Patient: Less than 30
[2017-08-21] MEDS: FUROSEMIDE 20 MG TAB PO SCH (17:17)
[2017-08-21] MEDS: WARFARIN 5 MG TAB PO SCH (17:18)
[2017-08-21 17:21] LABS: Glucose,Whole Blood 243 mg/dL (75-99)
--- NOTE | 2017-08-21 21:02 | PN ---
PROGRESS NOTE DATE OF SERVICE: 08/21/2017 PRESENTING COMPLAINT: Short of breath. INTERVAL HISTORY: This patient presented with CHF exacerbation. Was on Lasix drip and put out close to 14 L of negative fluid balance. Switched over to IV bolus Lasix. Overall doing much better. Breathing has improved. Tolerating a diet. Edema has come down significantly. REVIEW OF SYSTEMS: Done for constitutional, cardiovascular, GI, pulmonary; relevant findings as above. CURRENT MEDICATIONS: Reviewed. They include: 1. DuoNeb. 2. Cordarone. 3. She got 1 dose of IV Lasix today and otherwise p.o. Lasix. PHYSICAL EXAMINATION: Temperature 97.6, pulse 60, respiration 18, blood pressure 116/71, pulse ox 97% on 3 L. GENERAL APPEARANCE: Sitting up on chair. Tired-appearing. EYES: Pupils equal. Conjunctivae normal. HEENT: External appearance of nose and ears normal. Oral cavity normal. NECK: JVD unable to assess. Mass not palpable. RESPIRATORY: Effort increased. LUNGS: Decreased breath sounds. CARDIOVASCULAR: First and second sounds normal. Decreased edema. ABDOMEN: Distended, soft. Liver and spleen not palpable. PSYCHIATRY: Alert and oriented x3. Mood and affect tired-appearing. INVESTIGATIONS: INR 2, potassium 4.1, bicarb 39, BUN 55, creatinine 2.17. ASSESSMENT: 1. Acute on chronic congestive heart failure exacerbation from diastolic dysfunction, ejection fraction 60%, much improved. 2. Chronic cor pulmonale secondary to pulmonary hypertension. 3. Paroxysmal atrial fibrillation, chronically on Coumadin. 4. Hypothyroidism. 5. Obstructive sleep apnea; does not use CPAP machine. 6. Morbid obesity with body mass index greater than 40. 7. Hyperlipidemia. 8. Diabetes mellitus, type 2, chronically on insulin. 9. Chronic hypoxic respiratory failure, on 3 L oxygen at home. 10.Secondary pulmonary hypertension, moderate to severe, secondary to chronic obstructive pulmonary disease. 11.Chronic kidney disease, stage IIIB, from hypertensive nephrosclerosis. 12.Acute renal failure from diuresis. Creatinine has gone from 1.47 up to 2.17. PLAN: Patient's troponin has trickled up. Will hold off the p.m. dose of oral Lasix and resume from tomorrow. Will also discontinue the patient's fluid restriction now. Check electrolytes in the morning. MMODL / IJN: [id number] /
[2017-08-21 21:08] LABS: Glucose,Whole Blood 266 mg/dL (75-99)
[2017-08-21] MEDS: ATORVASTATIN 40 MG TAB PO SCH (21:50)
[2017-08-21] MEDS: INSULIN DETEMIR 100 UNIT/ML 10 ML VIAL SQ SCH (21:50)
[2017-08-22] MEDS: LEVOTHYROXINE 100 MCG TAB PO SCH (06:15)
[2017-08-22 07:41] LABS: Glucose,Whole Blood 250 mg/dL (75-99)
[2017-08-22] MEDS: FAMOTIDINE 20 MG TAB PO SCH (07:45)
[2017-08-22] MEDS: FUROSEMIDE 20 MG TAB PO SCH ×2 (07:45→15:15)
[2017-08-22] MEDS: METOPROLOL TARTRATE 50 MG TAB PO SCH ×2 (07:45→21:30)
[2017-08-22] MEDS: FERROUS SULFATE 325 MG TAB PO SCH ×2 (07:45→17:33)
[2017-08-22] MEDS: AMIODARONE 100 MG TAB PO SCH (07:45)
[2017-08-22] MEDS: INSULIN ASPART 100 UNIT/ML 1 ML 10 ML VIAL SQ SCH ×7 (07:46→21:35)
[2017-08-22] MEDS: NYSTATIN 100,000 UNIT/GM POWD 15 GM TOPICAL SCH ×3 (07:48→21:30)
[2017-08-22] MEDS: SYMBICORT 160-4.5 MCG INHALER INHALATION SCH ×2 (08:25→20:06)
[2017-08-22] MEDS ORDERED: LISINOPRIL 10 MG TAB PO SCH (09:00)
[2017-08-22 10:03] LABS: Calcium 8.7 mg/dL (8.4-10.2); Potassium 3.9 mmol/L (3.5-5.1)
[2017-08-22 10:10] LABS: INR 2.1 (<1.2); Prothrombin Time 18.7 sec (9.0-12.0)
--- NOTE | 2017-08-22 10:27 | P.PN ---
Subjective Patient is seen in follow-up for acute kidney injury and chronic kidney disease. Patient has chronic kidney disease stage III with baseline creatinine in the range of 1.2-1.3 secondary to cardiorenal syndrome. Creatinine was 1.7 on admission and did come down to 1.47 this admission. It is 2.23 today. Lasix drip has been discontinued and she is now maintained on Lasix 60 mg orally twice daily. UO is good. Edema is improving. Weight is trending down. Oral intake is good. No vomiting or diarrhea. Bicarb level is down to 35. Vital signs are stable. General: The patient appeared well nourished and normally developed. HEENT: Head exam is unremarkable. Neck is without jugular venous distension. LUNGS: Lungs are clear to auscultation and percussion. Breath sounds decreased. HEART: Rate and Rhythm are regular. First and second heart sounds normal. No murmurs, rubs or gallops. ABDOMEN: Abdominal exam reveals normal bowel sounds. Non-tender and non- distended. No evidence of peritonitis. EXTREMITITES: 1+ edema. Objective - Vital Signs Vital signs: Vital Signs Temp 97.9 F 08/22/17 05:54 Pulse 63 08/22/17 05:54 Resp 20 08/22/17 05:54 BP 96/49 08/22/17 05:54 Pulse Ox 92 L 08/22/17 05:54 Intake & Output 08/21/17 08/22/17 08/22/17 18:59 06:59 18:59 Intake Total 200 Output Total 1250 1200 Balance -1250 -1000 Weight 126.4 kg Intake: Other 200 Output: Urine 1250 1200 Other: Voiding Method Toilet Toilet # Bowel Movements 1 - Labs CBC & Chem 7: 08/16/17 10:55 08/22/17 08:51 Labs: Abnormal Lab Results - Last 24 Hours (Table) 08/21/17 08/21/17 08/21/17 Range/Units 11:39 17:18 21:06 PT (9.0-12.0) sec INR (<1.2) Chloride (98-107) mmol/L Carbon Dioxide (22-30) mmol/L BUN (7-17) mg/dL Creatinine (0.52-1.04) mg/dL Glucose (74-99) mg/dL POC Glucose (mg/dL) 229 H 243 H 266 H (75-99) mg/dL 08/22/17 08/22/17 08/22/17 Range/Units 07:19 08:51 08:51 PT 18.7 H (9.0-12.0) sec INR 2.1 H (<1.2) Chloride 91 L (98-107) mmol/L Carbon Dioxide 35 H (22-30) mmol/L BUN 61 H (7-17) mg/dL Creatinine 2.23 H (0.52-1.04) mg/dL Glucose 329 H (74-99) mg/dL POC Glucose (mg/dL) 250 H (75-99) mg/dL Assessment and Plan Plan: Assessment: #1. Nonoliguric acute kidney injury mostly prerenal secondary to cardiorenal syndrome. Creatinine 1.7 on admission and did come down to 1.47 this admission - 2.23 today. Urinalysis from last month was benign. #2. Volume overload. Improving. She is maintaining a net negative fluid balance. #3. Dyspnea secondary to acute exacerbation of diastolic CHF. #4. Moderate pulmonary hypertension. #5. Chronic kidney disease stage III secondary to cardiorenal syndrome with baseline creatinine in the range of 1.2-1.3. #6. Morbid obesity. #7. Atrial fibrillation maintained on amiodarone and metoprolol. Also on Coumadin for anticoagulation. #8. Metabolic alkalosis. Partially due to underlying compensation for chronic respiratory acidosis from COPD. Further worsened with diuresis. Plan: Maintain lasix 60 mg orally twice daily. Discontinued Diamox. Low-salt diet. 1500 mL fluid restriction. Avoid nephrotoxic agents and hypotensive episodes. Repeat electrolytes in the morning. Decrease lisinopril to 10 mg once daily. To hold antihypertensives for systolic blood pressure less than 120. Anticipate discharge soon. She will need to get a basic metabolic panel checked within 2-3 days of discharge and follow-up as an outpatient in the next 1-2 weeks.
--- NOTE | 2017-08-22 10:57 | P.PN ---
Subjective Progress Note Date: 08/22/17 Principal diagnosis: Acute on chronic hypoxic rest or a failure with worsening shortness of breath secondary to acute diastolic congestive heart failure This is a 66-year-old female patient, morbidly obese, along with history of multiple other medical problems including congestion heart failure with diastolic dysfunction and based on the recent echocardiogram shows normal ejection fraction yet she has moderate severe pulmonary hypertension and no significant valvular abnormalities have been noted, in addition, the patient has chronic lower extremity edema, COPD, diabetes, hypertension, hyperlipidemia , secondary pulmonary hypertension and chronic bronchial asthma. The patient has severe obstructive sleep apnea however she has not been tolerant to CPAP therapy. The patient's sleep apnea has been severe. The patient was diagnosed having severe CHATO treated with a BiPAP pressure of 22/18 cm of water and currently she is not utilizing any treatment. The patient came into the hospital because of worsening shortness of breath and some weight gain and increased lower extremity edema. Her proBNP level is at 1740. Her current body mass index is 59.1 and her body weight is 141.9 kg. Going back on the records, the patient has gained at least 10-12 kg since her last hospitalization back in June 2017. Back then she is to weigh 128 -130 kg. A repeat echocardiogram was done in June 2017 and the patient has a moderate concentric left ventricular hypertrophy, ejection fraction of 55-60%, mild aortic stenosis, moderate to severe pulmonary hypertension with a PA pressure of 51 and there is dilatation of the IVC consistent with elevated right atrial pressure. No pericardial effusion. This patient is on long-term articulation with warfarin. PT/INR is therapeutic at this point. The patient has been maintained on amiodarone for rate control in addition to metoprolol. The patient has been on diuretics with Lasix 40 mg by mouth twice a day. She has insulin-dependent diabetes mellitus. Note that the creatinine is up to 1.7 from a baseline of 1.2 from her latest admission. On 08/17/2017 the patient is feeling better compared to yesterday pH is diuresing nicely with IV Lasix. The exact input output has not been measured and I made recommendations to the nursing staff to collect the urine output. The patient has signs of fluid overload for now and she has it sees edema in lower extremities bilaterally. The renal function is stable with a creatinine of 1.5. No significant hypokalemia and potassium level is at 4.1. She is receiving 4 L of IV Lasix every 8 hours. The PT/INR is therapeutic for now. She is less short of breath compared to yesterday. No other significant events over the past 24 hours. On 08/18/2017, the patient is being diabetes with Lasix drip at the rate of 10 mg an hour. Reports improvement in diuresis over the past 24 hours. Zaroxolyn was also elevated at 2.5 mg daily basis. She is getting less short of breath. Her volume status is also improving. Her BMI is currently at 55.6 and the patient has produced 4.2 L of urine output yesterday and not at 9.4 L of urine output today with these changes. As such, her ability to diabetes has improved with a combination of diuretics. Creatinine is stable at 1.5. BUN is up to 40. Potassium level is at 3.9. INR is at 1.9. On 08/20/2017 patient seen in follow-up on medical surgical floor. She is sitting up in the chair, denies any acute distress, currently on liters per nasal cannula with O2 sat 95%. She is afebrile, hemodynamically stable. Appears fairly comfortable at rest, denies any worsening dyspnea. Still has the exertional dyspnea. Has been able to ambulate to the bathroom, tolerates activity well. She is currently on IV Lasix drip at 10 mg per hour, and her current weight is 128.6 kg, she is down 4.9 kg in the last 24 hours. Lung sounds are positive for diminished breath sounds bilaterally, with fine rales at both bases. Still has some mild nonpitting lower extremity edema, that this is improving. Today's labs revealed INR of 1.7, and the patient is on Coumadin for chronic atrial fibrillation. Sodium is 139, potassium is 3.6, chloride is 88, CO2 is 41, and nephrology ordered Diamox for worsening metabolic alkalosis related to diuresis. BUN is 48, creatinine is 1.90. On 08/21/2017 patient seen in follow-up on medical surgical floor. She is complaining of a mild headache this morning, lung sounds are clear, diminished at the bases, she is maintaining a negative fluid balance, and her weight is down by 2.2 kg in the last 24 hours. Her IV Lasix has been discontinued, and she was transitioned to oral Lasix at 60 mg by mouth twice a day. Still has some residual bilateral lower extremity edema 1+. On room air her O2 sat is 93% , she is afebrile, hemodynamically stable. Today's labs show INR of 2.0, sodium is 138, potassium is 4.1, chloride is 86, CO2 is 39, there has been worsening of her renal profile, with BUN of 55, creatinine of 2.17, nephrology is following. Continue with current plan of treatment. On 08/22/2017 patient is improving, her breathing is easier, wearing her oxygen intermittently, and on room air her pulse is 92%. In, no chest congestion, no wheezing. Lung sounds are positive for a few bibasilar crackles, improving. Afebrile. She continues on by mouth Lasix, has some residual bilateral lower extremity edema, this is improving. We will obtain a follow-up chest x-ray today Objective - Vital Signs Vital signs: Vital Signs Temp 97.9 F 08/22/17 05:54 Pulse 63 08/22/17 05:54 Resp 20 08/22/17 05:54 BP 96/49 08/22/17 05:54 Pulse Ox 92 L 08/22/17 05:54 Intake & Output 08/21/17 08/22/17 08/22/17 18:59 06:59 18:59 Intake Total 200 Output Total 1250 1200 Balance -1250 -1000 Weight 126.4 kg Intake: Other 200 Output: Urine 1250 1200 Other: Voiding Method Toilet Toilet # Bowel Movements 1 - Exam GENERAL EXAM: Alert, pleasant, 66-year-old obese white female, comfortable in no apparent distress. HEAD: Normocephalic/atraumatic. EYES: Normal reaction of pupils, equal size. Conjunctiva pink, sclera white. NOSE: Clear with pink turbinates. THROAT: No erythema or exudates. Mallampati class IV with significant crowding of the posterior oropharynx NECK: No masses, no JVD, no thyroid enlargement, no adenopathy. CHEST: No chest wall deformity. Symmetrical expansion. LUNGS: Equal air entry with a few bibasilar crackles, but no wheezes, rhonchi or dullness. Diminished breath sounds at bilateral bases CVS: Regular rate and rhythm, normal S1 and S2, no gallops, no murmurs, no rubs ABDOMEN: Soft, nontender. No hepatosplenomegaly, normal bowel sounds, no guarding or rigidity. EXTREMITIES: No clubbing, 1+edema in bilateral lower extremities, no cyanosis, 2 + pulses and upper and lower extremities. In the appearance of bilateral lower extremity edema is improving, patient is maintaining negative fluid balance on oral Lasix MUSCULOSKELETAL: Muscle strength and tone normal. SPINE: No scoliosis or deformity SKIN: No rashes CENTRAL NERVOUS SYSTEM: Alert and oriented -3. No focal deficits, tone is normal in all 4 extremities. PSYCHIATRIC: Alert and oriented -3. Appropriate affect. Intact judgment and insight. - Labs CBC & Chem 7: 08/16/17 10:55 08/22/17 08:51 Labs: Abnormal Lab Results - Last 24 Hours (Table) 08/21/17 08/21/17 08/21/17 Range/Units 11:39 17:18 21:06 PT (9.0-12.0) sec INR (<1.2) Chloride (98-107) mmol/L Carbon Dioxide (22-30) mmol/L BUN (7-17) mg/dL Creatinine (0.52-1.04) mg/dL Glucose (74-99) mg/dL POC Glucose (mg/dL) 229 H 243 H 266 H (75-99) mg/dL 08/22/17 08/22/17 08/22/17 Range/Units 07:19 08:51 08:51 PT 18.7 H (9.0-12.0) sec INR 2.1 H (<1.2) Chloride 91 L (98-107) mmol/L Carbon Dioxide 35 H (22-30) mmol/L BUN 61 H (7-17) mg/dL Creatinine 2.23 H (0.52-1.04) mg/dL Glucose 329 H (74-99) mg/dL POC Glucose (mg/dL) 250 H (75-99) mg/dL Assessment and Plan Plan: Assessment: 1 acute on chronic hypoxic respiratory failure with worsening shortness of breath and fluid overload with early signs of pulmonary edema based on chest x- ray findings. 2 CHF with diastolic dysfunction and concentric left ventricular hypertrophy with moderately severe in my hypertension which is secondary in nature 3 suspected bicuspid aortic valve based on a previous TIMOTHY that was done in 2016 4 secondary pulmonary potential and evidence of elevation the right atrial pressures, multifactorial related to valvular heart disease, hypertensive heart disease and diastolic dysfunction and obstructive sleep apnea 5 obstructive sleep apnea severe nontolerant to BiPAP therapy which is supposed to be at a pressure of 22/18 cm of water, her baseline AHI is at 92 6 chronic lower extremity edema 7 obesity with a current BMI of 59 8 diabetes mellitus 9 hypertension 10 hypothyroidism 11 chronic episodic cellulitis of the lower extremities related to chronic lower extremities edema 12 chronic renal failure with fluctuating renal function based on factors. Creatinine remains stable at 1.59. 13 normal coronaries based on a previous cardiac catheterization without evidence of any significant atherosclerotic heart disease 14 chronic bronchial asthma 15 chronic atrial fibrillation maintained on lifelong and to coagulation with warfarin with a therapeutic PT/INR. The patient is also on a combination of metoprolol and amiodarone Plan Patient remains stable, her breathing is improving, she is wearing her oxygen intermittently. IV diuretics have been transitioned to oral, nephrology is following in regards to worsening renal profile. We'll obtain a follow-up chest x-ray today. Clinically patient is improving. Increase activity as tolerated, patient is planning on returning home after discharge. I performed a history & physical examination of the patient and discussed their management with my nurse practitioner, Tracie Quiñonez. I reviewed the nurse practitioner's note and agree with the documented findings and plan of care. Lung sounds are positive diminished lung sounds at bilateral bases. The findings and the impression was discussed with the patient. I attest to the documentation by the nurse practitioner. Time with Patient: Less than 30
[2017-08-22 12:18] LABS: Glucose,Whole Blood 309 mg/dL (75-99)
[2017-08-22] MEDS ORDERED: LISINOPRIL 5 MG TAB PO SCH (14:14)
--- NOTE | 2017-08-22 14:15 | P.PN ---
Subjective Progress Note Date: 08/22/17 Mrs. Nichols is a pleasant 66-year-old female past medical history significant for hypertension, diabetes mellitus, dyslipidemia, paroxysmal atrial fibrillation on termite control representative anticoagalation with coumadin, asthma, sleep apnea, pulmonary hypertension and history of diastolic heart failure. She sees Dr. Mccormick in the office. She is seen and examined today sitting up in the chair in no acute distress. She has been maintained on a lasix infusion and is diuresing well with a negative fluid balance daily. The last 24 hrs reflects she negative 4560 ml and her weight is down 13 kg since admission. Blood pressure 120/73 heart rate 80. INR 1.7, creatinine 1.9 up from 1.7 on admission, potassium 3.6 and magnesium 2.1. 08/21/2017 Patient was seen and examined today sitting up in chair in no acute distress. She states she was unable to get any sleep last night so she feels exhausted this morning. The previous 24 hours shows a -3250 mL fluid. She received IV Lasix 2 doses yesterday. Her weight is down another 2 kg. Swelling in her legs is still evident and mildly worse from yesterday. Laboratory data reviewed , INR 2.0, potassium 4.1, creatinine 2.17. Blood pressure 111/72 heart rate 64 afebrile maintaining oxygen saturation on nasal cannula 3 L. Telemetry tracings have been unremarkable. 08/22/2017 Mrs. Nichols is seen and examined this morning. She is up ambulating in the [place] with physical therapy. She continues to show improvement daily. She is no longer requiring oxygen and denies worsening shortness of breath with activity. Lower extremity edema is ongoing with mild improvement. She has been on PO diuretics since yesterday afternoon. Creatinine 2.23, potassium 3.9, INR 2.1. Blood pressure 96/49 heart rate 63 afebrile maintaining oxygen saturation on room air. Repeat chest xray is pending. Objective - Vital Signs Vital signs: Vital Signs Temp 97.9 F 08/22/17 05:54 Pulse 63 08/22/17 05:54 Resp 20 08/22/17 05:54 BP 96/49 08/22/17 05:54 Pulse Ox 92 L 08/22/17 05:54 Intake & Output 08/21/17 08/22/17 08/22/17 18:59 06:59 18:59 Intake Total 200 Output Total 1250 1200 900 Balance -1250 -1000 -900 Weight 126.4 kg Intake: Other 200 Output: Urine 1250 1200 900 Other: Voiding Method Toilet Toilet # Bowel Movements 1 - Exam GENERAL: Well-appearing, well-nourished and in no acute distress. NECK: Supple without JVD or thyromegaly. LUNGS: Breath sounds clear to auscultation bilaterally. Respiration equal and unlabored. No wheezes, rales or rhonchi. Diminished bilaterally. HEART: Regular rate and rhythm with systolic ejection murmur at the base, no rubs or gallops. S1 and S2 heard. ABDOMEN: Soft, nontender and nonedematous. EXTREMITIES: Normal range of motion, 1+ pitting bilateral lower extremity edema. No clubbing or cyanosis. Peripheral pulses intact. - Labs CBC & Chem 7: 08/16/17 10:55 08/22/17 08:51 Labs: Abnormal Lab Results - Last 24 Hours (Table) 08/21/17 08/21/17 08/22/17 Range/Units 17:18 21:06 07:19 PT (9.0-12.0) sec INR (<1.2) Chloride (98-107) mmol/L Carbon Dioxide (22-30) mmol/L BUN (7-17) mg/dL Creatinine (0.52-1.04) mg/dL Glucose (74-99) mg/dL POC Glucose (mg/dL) 243 H 266 H 250 H (75-99) mg/dL 08/22/17 08/22/17 08/22/17 Range/Units 08:51 08:51 12:14 PT 18.7 H (9.0-12.0) sec INR 2.1 H (<1.2) Chloride 91 L (98-107) mmol/L Carbon Dioxide 35 H (22-30) mmol/L BUN 61 H (7-17) mg/dL Creatinine 2.23 H (0.52-1.04) mg/dL Glucose 329 H (74-99) mg/dL POC Glucose (mg/dL) 309 H (75-99) mg/dL Assessment and Plan Assessment: ASSESSMENT 1. Acute on chronic diastolic heart failure 2. Moderate pulmonary hypertension 3. Paroxysmal atrial fibrillation on long-term anticoagulation, currently maintaining sinus mechanism with a therapeutic INR. 4. Hypertension 5. Obstructive sleep apnea, noncompliant with BiPAP 6. Aortic stenosis 7. Morbid obesity 8. Diabetes mellitus 9. Chronic kidney disease, GFR 35. Stage IIIB PLAN Continue current medical therapy with oral diuretics. Decrease lisinopril for hypotension. INR is therapeutic, continue with coumadin. The above impression and plan of care have been discussed and directed by the signing physician. Taryn Paul, nurse practitioner, acting as scribe for signing physician.
--- NOTE | 2017-08-22 14:27 | XR ---
EXAMINATION TYPE: XR chest 2V DATE OF EXAM: 08/22/2017 COMPARISON: 08/16/2017 TECHNIQUE: PA and lateral views submitted. HISTORY: Difficulty breathing FINDINGS: Heart is enlarged and there is a persistent mild central interstitial prominence. Technique limits as sessment of the lung bases. Subsegmental consolidation suspected bilaterally. Hypertrophic and degene rative change of the spine. No pneumothorax. IMPRESSION: 1. Stable cardiomegaly with findings suggesting chronic interstitial mild venous congestion or pneumo nitis. Basilar atelectasis favored over infiltrate. Correlate clinically for confirmation.
[2017-08-22 17:12] LABS: Glucose,Whole Blood 227 mg/dL (75-99)
[2017-08-22] MEDS: WARFARIN 5 MG TAB PO SCH (17:33)
--- NOTE | 2017-08-22 19:00 | PN ---
PROGRESS NOTE DATE OF SERVICE: 08/22/17. PRESENTING COMPLAINT: Tired. INTERVAL HISTORY: The patient presented with CHF exacerbation, was on Lasix drip and diuresed well. The patient doing better. The patient has been in acute renal failure because some diuresis. REVIEW OF SYSTEMS: Done for constitutional, cardiovascular, GI, pulmonary, relevant findings as above. CURRENT MEDICATIONS: Reviewed. EXAMINATION: Temperature 98, pulse 65, respiratory 18, blood pressure 117/72, pulse ox 95% on room air. General appearance: Sitting up in a chair, awake, eyes pupils equal. Conjunctivae normal. HEENT external appearance of nose and ears normal. Oral cavity normal. Neck JVD not raised. Mass not palpable. Respiratory effort increased. Lungs decreased breath sounds. Cardiovascular: First and second sounds normal. Decreased edema. ABDOMEN: Soft, nontender. Liver and spleen not palpable. Psychiatry: Alert and oriented x3. Mood and affect normal. INVESTIGATIONS: INR 2.1, BUN 61, creatinine 2.23. ASSESSMENT: 1. Acute on chronic congestive heart failure exacerbation from diastolic dysfunction. Ejection fraction 60% improved. 2. Acute renal failure from diuresis. Creatinine is gone up and patient also on the hypotensive side. We will hold off the next two doses of Lasix. 3. Chronic cor pulmonale secondary to pulmonary hypertension. 4. Paroxysmal atrial fibrillation chronically on Coumadin. 5. Hypothyroidism. 6. Obstructive sleep apnea does not use CPAP machine. 7. Morbid obesity BMI greater than 40. 8. Hyperlipidemia. 9. Diabetes mellitus type 2, chronically on insulin. 10.Chronic hypoxic respiratory failure on 3 L oxygen at home. 11.Secondary pulmonary hypertension, moderate to severe secondary to chronic obstructive pulmonary disease. 12.Chronic kidney stage IIIB, from hypertensive nephrosclerosis. PLAN: At this point we will hold off on the p.m. dose and morning dose of Lasix and hopefully patient can be discharged tomorrow if the creatinine is not getting rapidly any worse. Care was discussed with the patient. MMODL / IJN: [id number] /
[2017-08-22 21:04] LABS: Glucose,Whole Blood 236 mg/dL (75-99)
[2017-08-22] MEDS: ATORVASTATIN 40 MG TAB PO SCH (21:30)
[2017-08-22] MEDS: INSULIN DETEMIR 100 UNIT/ML 10 ML VIAL SQ SCH (21:35)
[2017-08-23] MEDS: LEVOTHYROXINE 100 MCG TAB PO SCH (05:49)
[2017-08-23 06:56] LABS: Glucose,Whole Blood 255 mg/dL (75-99)
[2017-08-23 07:03] VITALS: TEMP 97.4
[2017-08-23] MEDS: FERROUS SULFATE 325 MG TAB PO SCH ×2 (07:56→15:56)
[2017-08-23] MEDS: METOPROLOL TARTRATE 50 MG TAB PO SCH (07:56)
[2017-08-23] MEDS: FUROSEMIDE 20 MG TAB PO SCH ×2 (07:56→15:55)
[2017-08-23] MEDS: AMIODARONE 100 MG TAB PO SCH (07:56)
[2017-08-23] MEDS: NYSTATIN 100,000 UNIT/GM POWD 15 GM TOPICAL SCH ×2 (07:57→15:56)
[2017-08-23] MEDS: FAMOTIDINE 20 MG TAB PO SCH (07:57)
[2017-08-23] MEDS: INSULIN ASPART 100 UNIT/ML 1 ML 10 ML VIAL SQ SCH ×4 (07:57→12:47)
[2017-08-23 08:23] LABS: INR 1.9 (<1.2); Prothrombin Time 17.2 sec (9.0-12.0)
[2017-08-23 08:24] LABS: Magnesium 2.7 mg/dL (1.6-2.3); Potassium 4.2 mmol/L (3.5-5.1)
[2017-08-23] MEDS: ACETAMINOPHEN TAB 325 MG TAB PO PRN (08:51)
[2017-08-23] MEDS: SYMBICORT 160-4.5 MCG INHALER INHALATION SCH (09:04)
--- NOTE | 2017-08-23 09:46 | P.PN ---
Subjective Progress Note Date: 08/23/17 Principal diagnosis: Acute on chronic hypoxic rest or a failure with worsening shortness of breath secondary to acute diastolic congestive heart failure This is a 66-year-old female patient, morbidly obese, along with history of multiple other medical problems including congestion heart failure with diastolic dysfunction and based on the recent echocardiogram shows normal ejection fraction yet she has moderate severe pulmonary hypertension and no significant valvular abnormalities have been noted, in addition, the patient has chronic lower extremity edema, COPD, diabetes, hypertension, hyperlipidemia , secondary pulmonary hypertension and chronic bronchial asthma. The patient has severe obstructive sleep apnea however she has not been tolerant to CPAP therapy. The patient's sleep apnea has been severe. The patient was diagnosed having severe CHATO treated with a BiPAP pressure of 22/18 cm of water and currently she is not utilizing any treatment. The patient came into the hospital because of worsening shortness of breath and some weight gain and increased lower extremity edema. Her proBNP level is at 1740. Her current body mass index is 59.1 and her body weight is 141.9 kg. Going back on the records, the patient has gained at least 10-12 kg since her last hospitalization back in June 2017. Back then she is to weigh 128 -130 kg. A repeat echocardiogram was done in June 2017 and the patient has a moderate concentric left ventricular hypertrophy, ejection fraction of 55-60%, mild aortic stenosis, moderate to severe pulmonary hypertension with a PA pressure of 51 and there is dilatation of the IVC consistent with elevated right atrial pressure. No pericardial effusion. This patient is on long-term articulation with warfarin. PT/INR is therapeutic at this point. The patient has been maintained on amiodarone for rate control in addition to metoprolol. The patient has been on diuretics with Lasix 40 mg by mouth twice a day. She has insulin-dependent diabetes mellitus. Note that the creatinine is up to 1.7 from a baseline of 1.2 from her latest admission. On 08/17/2017 the patient is feeling better compared to yesterday pH is diuresing nicely with IV Lasix. The exact input output has not been measured and I made recommendations to the nursing staff to collect the urine output. The patient has signs of fluid overload for now and she has it sees edema in lower extremities bilaterally. The renal function is stable with a creatinine of 1.5. No significant hypokalemia and potassium level is at 4.1. She is receiving 4 L of IV Lasix every 8 hours. The PT/INR is therapeutic for now. She is less short of breath compared to yesterday. No other significant events over the past 24 hours. On 08/18/2017, the patient is being diabetes with Lasix drip at the rate of 10 mg an hour. Reports improvement in diuresis over the past 24 hours. Zaroxolyn was also elevated at 2.5 mg daily basis. She is getting less short of breath. Her volume status is also improving. Her BMI is currently at 55.6 and the patient has produced 4.2 L of urine output yesterday and not at 9.4 L of urine output today with these changes. As such, her ability to diabetes has improved with a combination of diuretics. Creatinine is stable at 1.5. BUN is up to 40. Potassium level is at 3.9. INR is at 1.9. On 08/20/2017 patient seen in follow-up on medical surgical floor. She is sitting up in the chair, denies any acute distress, currently on liters per nasal cannula with O2 sat 95%. She is afebrile, hemodynamically stable. Appears fairly comfortable at rest, denies any worsening dyspnea. Still has the exertional dyspnea. Has been able to ambulate to the bathroom, tolerates activity well. She is currently on IV Lasix drip at 10 mg per hour, and her current weight is 128.6 kg, she is down 4.9 kg in the last 24 hours. Lung sounds are positive for diminished breath sounds bilaterally, with fine rales at both bases. Still has some mild nonpitting lower extremity edema, that this is improving. Today's labs revealed INR of 1.7, and the patient is on Coumadin for chronic atrial fibrillation. Sodium is 139, potassium is 3.6, chloride is 88, CO2 is 41, and nephrology ordered Diamox for worsening metabolic alkalosis related to diuresis. BUN is 48, creatinine is 1.90. On 08/21/2017 patient seen in follow-up on medical surgical floor. She is complaining of a mild headache this morning, lung sounds are clear, diminished at the bases, she is maintaining a negative fluid balance, and her weight is down by 2.2 kg in the last 24 hours. Her IV Lasix has been discontinued, and she was transitioned to oral Lasix at 60 mg by mouth twice a day. Still has some residual bilateral lower extremity edema 1+. On room air her O2 sat is 93% , she is afebrile, hemodynamically stable. Today's labs show INR of 2.0, sodium is 138, potassium is 4.1, chloride is 86, CO2 is 39, there has been worsening of her renal profile, with BUN of 55, creatinine of 2.17, nephrology is following. Continue with current plan of treatment. On 08/22/2017 patient is improving, her breathing is easier, wearing her oxygen intermittently, and on room air her pulse is 92%. In, no chest congestion, no wheezing. Lung sounds are positive for a few bibasilar crackles, improving. Afebrile. She continues on by mouth Lasix, has some residual bilateral lower extremity edema, this is improving. We will obtain a follow-up chest x-ray today On 08/23/2017 patient seen in follow-up. Continues to improve, lung sounds are clear, diminished at the bases, no rales appreciated on today's exam, wearing oxygen intermittently, on room air her pulse ox is 94%, she is afebrile, vital signs are stable. Respirations are even and nonlabored, patient states she ambulated yesterday, and tolerated activity well. Her renal profile is starting to improve, her BUN is down to 56 from 61, and creatinine is down to 1.85. He remains on oral diuretics, nebulized treatments. Today's chest x-ray was reviewed, and showed stable cardiomegaly with findings suggesting chronic interstitial mild venous congestion, basilar atelectasis. Overall patient clinically is improving. No acute events overnight, anticipate possible discharge home today Objective - Vital Signs Vital signs: Vital Signs Temp 97.4 F L 08/23/17 06:00 Pulse 64 08/23/17 06:00 Resp 20 08/23/17 06:00 BP 128/57 08/23/17 06:00 Pulse Ox 94 L 08/23/17 06:00 Intake & Output 08/22/17 08/23/17 08/23/17 18:59 06:59 18:59 Output Total 900 1950 1050 Balance -1950 Weight 123.5 kg Output: Urine 900 1950 1050 Other: Voiding Method Toilet Toilet - Exam GENERAL EXAM: Alert, pleasant, 66-year-old obese white female, comfortable in no apparent distress. HEAD: Normocephalic/atraumatic. EYES: Normal reaction of pupils, equal size. Conjunctiva pink, sclera white. NOSE: Clear with pink turbinates. THROAT: No erythema or exudates. Mallampati class IV with significant crowding of the posterior oropharynx NECK: No masses, no JVD, no thyroid enlargement, no adenopathy. CHEST: No chest wall deformity. Symmetrical expansion. LUNGS: Equal air entry with a few bibasilar crackles, but no wheezes, rhonchi or dullness. Diminished breath sounds at bilateral bases CVS: Regular rate and rhythm, normal S1 and S2, no gallops, no murmurs, no rubs ABDOMEN: Soft, nontender. No hepatosplenomegaly, normal bowel sounds, no guarding or rigidity. EXTREMITIES: No clubbing, 1+edema in bilateral lower extremities, no cyanosis, 2 + pulses and upper and lower extremities. In the appearance of bilateral lower extremity edema is improving, patient is maintaining negative fluid balance on oral Lasix MUSCULOSKELETAL: Muscle strength and tone normal. SPINE: No scoliosis or deformity SKIN: No rashes CENTRAL NERVOUS SYSTEM: Alert and oriented -3. No focal deficits, tone is normal in all 4 extremities. PSYCHIATRIC: Alert and oriented -3. Appropriate affect. Intact judgment and insight. - Labs CBC & Chem 7: 08/16/17 10:55 08/23/17 07:30 Labs: Abnormal Lab Results - Last 24 Hours (Table) 08/22/17 08/22/17 08/22/17 Range/Units 08:51 08:51 12:14 PT 18.7 H (9.0-12.0) sec INR 2.1 H (<1.2) Chloride 91 L (98-107) mmol/L Carbon Dioxide 35 H (22-30) mmol/L BUN 61 H (7-17) mg/dL Creatinine 2.23 H (0.52-1.04) mg/dL Glucose 329 H (74-99) mg/dL POC Glucose (mg/dL) 309 H (75-99) mg/dL Magnesium (1.6-2.3) mg/dL 08/22/17 08/22/17 08/23/17 Range/Units 17:09 20:43 06:53 PT (9.0-12.0) sec INR (<1.2) Chloride (98-107) mmol/L Carbon Dioxide (22-30) mmol/L BUN (7-17) mg/dL Creatinine (0.52-1.04) mg/dL Glucose (74-99) mg/dL POC Glucose (mg/dL) 227 H 236 H 255 H (75-99) mg/dL Magnesium (1.6-2.3) mg/dL 08/23/17 08/23/17 Range/Units 07:30 07:30 PT 17.2 H (9.0-12.0) sec INR 1.9 H (<1.2) Chloride 93 L (98-107) mmol/L Carbon Dioxide 35 H (22-30) mmol/L BUN 56 H (7-17) mg/dL Creatinine 1.85 H (0.52-1.04) mg/dL Glucose 227 H (74-99) mg/dL POC Glucose (mg/dL) (75-99) mg/dL Magnesium 2.7 H (1.6-2.3) mg/dL Assessment and Plan Plan: Assessment: 1 acute on chronic hypoxic respiratory failure with worsening shortness of breath and fluid overload with early signs of pulmonary edema based on chest x- ray findings. 2 CHF with diastolic dysfunction and concentric left ventricular hypertrophy with moderately severe in my hypertension which is secondary in nature 3 suspected bicuspid aortic valve based on a previous TIMOTHY that was done in 2015 4 secondary pulmonary potential and evidence of elevation the right atrial pressures, multifactorial related to valvular heart disease, hypertensive heart disease and diastolic dysfunction and obstructive sleep apnea 5 obstructive sleep apnea severe nontolerant to BiPAP therapy which is supposed to be at a pressure of 22/18 cm of water, her baseline AHI is at 92 6 chronic lower extremity edema 7 obesity with a current BMI of 59 8 diabetes mellitus 9 hypertension 10 hypothyroidism 11 chronic episodic cellulitis of the lower extremities related to chronic lower extremities edema 12 chronic renal failure with fluctuating renal function based on factors. Creatinine remains stable at 1.59. 13 normal coronaries based on a previous cardiac catheterization without evidence of any significant atherosclerotic heart disease 14 chronic bronchial asthma 15 chronic atrial fibrillation maintained on lifelong and to coagulation with warfarin with a therapeutic PT/INR. The patient is also on a combination of metoprolol and amiodarone Plan Chest x-ray from 08/22/2017 was reviewed, and showed stable findings of cardiomegaly, and chronic interstitial prominence with basilar atelectasis. Clinically patient continues to improve, remains on oral diuretics, her renal profile is improving, she denies any chest pain, denies any worsening dyspnea, she has been ambulating, and reports tolerating it well. From pulmonary standpoint patient is stable for discharge home today once cleared by other consultants on the case. I performed a history & physical examination of the patient and discussed their management with my nurse practitioner, Tracie Quiñonez. I reviewed the nurse practitioner's note and agree with the documented findings and plan of care. Lung sounds are positive diminished lung sounds at bilateral bases. The findings and the impression was discussed with the patient. I attest to the documentation by the nurse practitioner. Time with Patient: Less than 30
--- NOTE | 2017-08-23 10:43 | P.PN ---
Subjective Patient is seen in follow-up for acute kidney injury and chronic kidney disease. Patient has chronic kidney disease stage III with baseline creatinine in the range of 1.2-1.3 secondary to cardiorenal syndrome. Creatinine was 1.7 on admission and peaked at 2.3 this admission - 1.85 today. Lasix drip has been discontinued and she is now maintained on Lasix 60 mg orally twice daily. UO is good. Edema is improving. Weight is trending down. Oral intake is good. No vomiting or diarrhea. Bicarb level is down to 35. No active complaints at this time. Vital signs are stable. General: The patient appeared well nourished and normally developed. HEENT: Head exam is unremarkable. Neck is without jugular venous distension. LUNGS: Lungs are clear to auscultation and percussion. Breath sounds decreased. HEART: Rate and Rhythm are regular. First and second heart sounds normal. No murmurs, rubs or gallops. ABDOMEN: Abdominal exam reveals normal bowel sounds. Non-tender and non- distended. No evidence of peritonitis. EXTREMITITES: 1+ edema. Objective - Vital Signs Vital signs: Vital Signs Temp 97.4 F L 08/23/17 06:00 Pulse 64 08/23/17 06:00 Resp 20 08/23/17 06:00 BP 128/57 08/23/17 06:00 Pulse Ox 94 L 08/23/17 06:00 Intake & Output 08/22/17 08/23/17 08/23/17 18:59 06:59 18:59 Output Total 900 1950 1050 Balance -900 -1950 -1050 Weight 123.5 kg Output: Urine 900 1950 1050 Other: Voiding Method Toilet Toilet - Labs CBC & Chem 7: 08/16/17 10:55 08/23/17 07:30 Labs: Abnormal Lab Results - Last 24 Hours (Table) 08/22/17 08/22/17 08/22/17 Range/Units 12:14 17:09 20:43 PT (9.0-12.0) sec INR (<1.2) Chloride (98-107) mmol/L Carbon Dioxide (22-30) mmol/L BUN (7-17) mg/dL Creatinine (0.52-1.04) mg/dL Glucose (74-99) mg/dL POC Glucose (mg/dL) 309 H 227 H 236 H (75-99) mg/dL Magnesium (1.6-2.3) mg/dL 08/23/17 08/23/17 08/23/17 Range/Units 06:53 07:30 07:30 PT 17.2 H (9.0-12.0) sec INR 1.9 H (<1.2) Chloride 93 L (98-107) mmol/L Carbon Dioxide 35 H (22-30) mmol/L BUN 56 H (7-17) mg/dL Creatinine 1.85 H (0.52-1.04) mg/dL Glucose 227 H (74-99) mg/dL POC Glucose (mg/dL) 255 H (75-99) mg/dL Magnesium 2.7 H (1.6-2.3) mg/dL Assessment and Plan Plan: Assessment: #1. Nonoliguric acute kidney injury mostly prerenal secondary to cardiorenal syndrome. Creatinine 1.7 on admission and peaked at 2.23 this admission - 1.85 today. Urinalysis from last month was benign. #2. Volume overload. Improving. She is maintaining a net negative fluid balance. #3. Dyspnea secondary to acute exacerbation of diastolic CHF. #4. Moderate pulmonary hypertension. #5. Chronic kidney disease stage III secondary to cardiorenal syndrome with baseline creatinine in the range of 1.2-1.3. #6. Morbid obesity. #7. Atrial fibrillation maintained on amiodarone and metoprolol. Also on Coumadin for anticoagulation. #8. Metabolic alkalosis. Partially due to underlying compensation for chronic respiratory acidosis from COPD. Further worsened with diuresis. Plan: Maintain lasix 60 mg orally twice daily. Discontinued Diamox. Low-salt diet. 1500 mL fluid restriction. Avoid nephrotoxic agents and hypotensive episodes. Repeat electrolytes in the morning. Decreased lisinopril to 10 mg once daily. To hold antihypertensives for systolic blood pressure less than 120. Anticipate discharge soon. She will need to get a basic metabolic panel checked within 2-3 days of discharge and follow-up as an outpatient in the next 1-2 weeks.
--- NOTE | 2017-08-23 11:57 | P.PN ---
Subjective Progress Note Date: 08/23/17 Mrs. Nichols is a pleasant 66-year-old female past medical history significant for hypertension, diabetes mellitus, dyslipidemia, paroxysmal atrial fibrillation on remote computer terminal operator anticoagalation with coumadin, asthma, sleep apnea, pulmonary hypertension and history of diastolic heart failure. She sees Dr. Mccormick in the office. She is seen and examined today sitting up in the chair in no acute distress. She has been maintained on a lasix infusion and is diuresing well with a negative fluid balance daily. The last 24 hrs reflects she negative 4560 ml and her weight is down 13 kg since admission. Blood pressure 120/73 heart rate 80. INR 1.7, creatinine 1.9 up from 1.7 on admission, potassium 3.6 and magnesium 2.1. 08/21/2017 Patient was seen and examined today sitting up in chair in no acute distress. She states she was unable to get any sleep last night so she feels exhausted this morning. The previous 24 hours shows a -3250 mL fluid. She received IV Lasix 2 doses yesterday. Her weight is down another 2 kg. Swelling in her legs is still evident and mildly worse from yesterday. Laboratory data reviewed , INR 2.0, potassium 4.1, creatinine 2.17. Blood pressure 111/72 heart rate 64 afebrile maintaining oxygen saturation on nasal cannula 3 L. Telemetry tracings have been unremarkable. 08/22/2017 Mrs. Nichols is seen and examined this morning. She is up ambulating in the [place] with physical therapy. She continues to show improvement daily. She is no longer requiring oxygen and denies worsening shortness of breath with activity. Lower extremity edema is ongoing with mild improvement. She has been on PO diuretics since yesterday afternoon. Creatinine 2.23, potassium 3.9, INR 2.1. Blood pressure 96/49 heart rate 63 afebrile maintaining oxygen saturation on room air. Repeat chest xray is pending. 08/23/2017 Patient is seen and examined sitting up in the chair. Continues to verbalize her breathing is improving. Ongoing lower extremity edema that is chronic. Oral lasix was held last night per primary for worsening renal function. Creatinine this morning 1.85, magnesium 2.7, potassium 4.2, sodium 140, INR 1.9. Lisinopril was decreased yesterday to 5 mg daily for hypotension. Blood pressure 128/57 heart rate 64 afebrile maintaining oxygen saturation on room air with oxygen being used intermittently. Her weight continues to decrease daily down to 123.5 from 141 on admission. Discussion had with her regarding checking daily weights at home and keeping a log. Objective - Vital Signs Vital signs: Vital Signs Temp 97.4 F L 08/23/17 06:00 Pulse 64 08/23/17 06:00 Resp 20 08/23/17 06:00 BP 128/57 08/23/17 06:00 Pulse Ox 94 L 08/23/17 06:00 Intake & Output 08/22/17 08/23/17 08/23/17 18:59 06:59 18:59 Output Total 900 1950 1050 Balance -900 -1950 -1050 Weight 123.5 kg Output: Urine 900 1950 1050 Other: Voiding Method Toilet Toilet - Exam GENERAL: Well-appearing, well-nourished and in no acute distress. NECK: Supple without JVD or thyromegaly. LUNGS: Breath sounds clear to auscultation bilaterally. Respiration equal and unlabored. No wheezes, rales or rhonchi. Diminished bilaterally. HEART: Regular rate and rhythm with systolic ejection murmur at the base, no rubs or gallops. S1 and S2 heard. ABDOMEN: Soft, nontender and nonedematous. EXTREMITIES: Normal range of motion, 1+ pitting bilateral lower extremity edema. No clubbing or cyanosis. Peripheral pulses intact. - Labs CBC & Chem 7: 08/16/17 10:55 08/23/17 07:30 Labs: Abnormal Lab Results - Last 24 Hours (Table) 08/22/17 08/22/17 08/22/17 Range/Units 12:14 17:09 20:43 PT (9.0-12.0) sec INR (<1.2) Chloride (98-107) mmol/L Carbon Dioxide (22-30) mmol/L BUN (7-17) mg/dL Creatinine (0.52-1.04) mg/dL Glucose (74-99) mg/dL POC Glucose (mg/dL) 309 H 227 H 236 H (75-99) mg/dL Magnesium (1.6-2.3) mg/dL 04/26/18 04/26/18 04/26/18 Range/Units 06:53 07:30 07:30 PT 17.2 H (9.0-12.0) sec INR 1.9 H (<1.2) Chloride 93 L (98-107) mmol/L Carbon Dioxide 35 H (22-30) mmol/L BUN 56 H (7-17) mg/dL Creatinine 1.85 H (0.52-1.04) mg/dL Glucose 227 H (74-99) mg/dL POC Glucose (mg/dL) 255 H (75-99) mg/dL Magnesium 2.7 H (1.6-2.3) mg/dL Assessment and Plan Assessment: ASSESSMENT 1. Acute on chronic diastolic heart failure 2. Moderate pulmonary hypertension 3. Paroxysmal atrial fibrillation on long-term anticoagulation, currently maintaining sinus mechanism with a therapeutic INR. 4. Hypertension 5. Obstructive sleep apnea, noncompliant with BiPAP 6. Aortic stenosis 7. Morbid obesity 8. Diabetes mellitus 9. Chronic kidney disease, GFR 35. Stage IIIB PLAN Continue current medical therapy with oral diuretics as per recommendations from nephrology. She should go home on lasix 60 mg BID. Continue with lisinopril 5 mg daily, amiodarone 100 mg daily, atorvastatin 40 mg daily, metroprolol 50 mg BID and coumadin dosing should be 5 mg daily everyday. Follow up with Dr. Mccormick in 2 weeks. Instructions provided for checking daily weight at the same time everyday after waking up in the morning and after her voiding. Keep log of weights and take to Dr. Mccormick at follow up visit. The above impression and plan of care have been discussed and directed by the signing physician. Taryn Paul, nurse practitioner, acting as scribe for signing physician.
[2017-08-23 12:04] LABS: Glucose,Whole Blood 236 mg/dL (75-99)
[2017-08-23 15:19] VITALS: BP 111/61; PULSE 59; RESP 18
[2017-08-23] MEDS ORDERED: WARFARIN 5 MG TAB PO SCH (18:00)
--- NOTE | 2017-08-23 23:40 | DS ---
DISCHARGE SUMMARY FINAL DIAGNOSES: 1. [id number] congestive heart failure exacerbation from diastolic dysfunction, EF 60%. 2. Acute renal failure from dialysis, likely prerenal. 3. Chronic cor pulmonale secondary to pulmonary hypertension. 4. Paroxysmal atrial fibrillation chronically on Coumadin. 5. Hypothyroidism. 6. Obstructive sleep apnea, does not use CPAP machine. 7. Morbid obesity BMI greater than 40. 8. Hyperlipidemia. 9. Diabetes mellitus type 2, chronically on insulin. 10.Chronic hypoxic respiratory failure on 3 L oxygen at home. 11.Secondary pulmonary hypertension, [id number] secondary to chronic obstructive pulmonary disease. 12.Chronic kidney disease, stage IIIB, from hypertensive nephrosclerosis. HOSPITAL COURSE: This patient presents with exacerbation of congestive heart failure, primary left side and given IV Lasix drip. The patient was about 14 L of negative fluid balance. The patient did go into renal failure. Creatinine did bump up from 1.47 to 2.23. This started coming down and it was 1.85 by the time of discharge. The patient is doing much better. INR was 1.9. On examination, lungs decreased breath sounds, edema present. Overall feeling better. Care was discussed with the patient. CONSULTATIONS: Dr. Lama from Pulmonary, Dr. Harrison from Nephrology, Dr. Mccormick from Cardiology. DISCHARGE MEDICATIONS: 1. Ferrous sulfate 325 p.o. b.i.d. 2. Zantac 150 mg b.i.d. 3. Lipitor 40 mg q.h.s. 4. Lopressor 50 mg b.i.d. 5. Symbicort 160/4.5, 1 puff b.i.d. 6. Apidra 8 units subcu t.i.d. 7. Ventolin HFA 2 puffs q.6h p.r.n. 8. DuoNeb t.i.d. p.r.n. 9. Cordarone 100 mg p.o. daily. 10.Synthroid 100 mcg p.o. daily. 11.Claritin 10 mg p.o. daily. 12.Lantus 45 units subcu q.h.s. 13.Mycostatin topical t.i.d. 14.MiraLAX 17 g p.o. daily p.r.n. 15.Lasix 60 mg p.o. b.i.d. 16.Zestril 5 mg p.o. daily. 17.Coumadin 5 mg p.o. daily. LABS: BMP and INR in 1 week. FOLLOWUP: Follow up with Dr. Mccormick on 09/10/2017, Dr. Dontae Quan on 08/28/2017 and follow up with Nephrology. MMODL / IJN: [id number] /
== END 2017-08-23 17:18 | disposition home health service (06) | DRG 291 ==
LOC: EC 10:35 → 4MS4W 12:42
PROVIDERS: ADMIT Hospitalist; ATTEND Hospitalist
DX: I13.0 Hypertensive heart and chronic kidney disease with heart failure and stage 1 through stage 4 chronic kidney disease, or unspecified chronic kidney disease (principal); I50.33 Acute on chronic diastolic (congestive) heart failure; J96.21 Acute and chronic respiratory failure with hypoxia; E87.4 Mixed disorder of acid-base balance; N17.9 Acute kidney failure, unspecified; N18.3 Chronic kidney disease, stage 3 (moderate); Q23.1 Congenital insufficiency of aortic valve; J98.11 Atelectasis; Z68.43 Body mass index [BMI] 50.0-59.9, adult; E11.22 Type 2 diabetes mellitus with diabetic chronic kidney disease; I27.29 Other secondary pulmonary hypertension; I27.81 Cor pulmonale (chronic); I95.9 Hypotension, unspecified; E66.01 Morbid (severe) obesity due to excess calories; E03.9 Hypothyroidism, unspecified; E78.5 Hyperlipidemia, unspecified; G47.33 Obstructive sleep apnea (adult) (pediatric); I25.10 Atherosclerotic heart disease of native coronary artery without angina pectoris; I48.2 Chronic atrial fibrillation; J44.9 Chronic obstructive pulmonary disease, unspecified; Z79.01 Long term (current) use of anticoagulants; Z79.4 Long term (current) use of insulin; Z79.51 Long term (current) use of inhaled steroids; Z79.899 Other long term (current) drug therapy; Z79.890 Hormone replacement therapy; Z91.19 Patient's noncompliance with other medical treatment and regimen; Z99.81 Dependence on supplemental oxygen; Z90.49 Acquired absence of other specified parts of digestive tract; Z98.42 Cataract extraction status, left eye; Z98.41 Cataract extraction status, right eye; Z96.1 Presence of intraocular lens; Z80.1 Family history of malignant neoplasm of trachea, bronchus and lung
CPT/HCPCS: 36415; 71046; 80048; 80053; 82550; 82553; 83036; 83735; 83880; 84484; 85025; 85610; 85730; 93005; 94640; 94760; 96374; 99291

== ENCOUNTER 2017-09-23 12:00 | Emergency (ER) | payer OTHER ==
--- NOTE | 2017-09-23 12:31 | ED ---
General Adult HPI - General Chief complaint: Shortness of Breath Stated complaint: ANNE MARIE,Weight gain Time Seen by Provider: 09/23/17 12:24 Source: patient, RN notes reviewed, old records reviewed Mode of arrival: wheelchair Limitations: no limitations - History of Present Illness Initial comments: 66-year-old female presents for evaluation of worsening dyspnea and weight gain. Patient has history of congestive heart failure. She states over the past 2 days she's noticed an increase in weight as well as increased lower extremity swelling. She does have dyspnea and orthopnea. She denies significant cough. Denies fever or chills. Denies chest pain. Denies abdominal pain or nausea vomiting. She has been compliant with her medications. - Related Data Home Medications Medication Instructions Recorded Confirmed Ferrous Sulfate [Feosol] 325 mg PO BID 07/14/14 08/16/17 Ranitidine HCl 150 mg PO BID 07/14/14 08/16/17 Atorvastatin [Lipitor] 40 mg PO HS 09/28/15 08/16/17 Budesonide/Formoterol Fumarate 1 puff INHALATION RT-BID 04/02/16 08/16/17 [Symbicort 160-4.5 Mcg Inhaler] Insulin Glulisine [Apidra Solostar] 8 unit SQ TID-W/MEALS 04/02/16 08/16/17 Albuterol Inhaler [Ventolin Hfa 2 puff INHALATION RT-Q6H PRN 11/13/16 08/16/17 Inhaler] Ipratropium-Albuterol Nebulize 3 ml INHALATION RT-TID PRN 01/13/17 08/16/17 [Duoneb 0.5 mg-3 mg/3 ml Soln] Amiodarone [Cordarone] 100 mg PO DAILY 02/16/17 08/16/17 Levothyroxine Sodium [Synthroid] 100 mcg PO DAILY 02/16/17 08/16/17 Loratadine [Claritin] 10 mg PO DAILY 05/03/17 08/16/17 Insulin Glargine [Lantus] 45 unit SQ HS 07/15/17 08/16/17 Nystatin 100,000 Unit/gm Powd 1 applic TOPICAL TID 07/15/17 08/16/17 [Mycostatin Powder] Polyethylene Glycol 3350 [Miralax] 17 gm PO DAILY PRN 07/15/17 08/16/17 Previous Rx's Medication Instructions Recorded Metoprolol Tartrate [Lopressor] 50 mg PO BID #60 tab 10/08/15 Furosemide [Lasix] 60 mg PO BID #0 08/23/17 Lisinopril [Zestril] 5 mg PO DAILY #60 tab 08/23/17 Warfarin [Coumadin] 5 mg PO DAILY #0 08/23/17 Allergies Allergy/AdvReac Type Severity Reaction Status Date / Time No Known Allergies Allergy Verified 08/16/17 12:12 Review of Systems ROS Statement: Those systems with pertinent positive or pertinent negative responses have been documented in the HPI. ROS Other: All systems not noted in ROS Statement are negative. Past Medical History Past Medical History: Atrial Fibrillation, Asthma, Coronary Artery Disease (CAD) , Chest Pain / Angina, Heart Failure, Diabetes Mellitus, Hyperlipidemia, Hypertension, Thyroid Disorder Additional Past Medical History / Comment(s): Severe obstructive sleep apnea- does not tolerate CPAP-wears O2 at 3L/NC at hs, pulmonary htn, morbid obesity, history of cellulitis right lower extremity-healed, hypothyroidism. She also has aortic valve stenosis with a potential of bicuspid versus tricuspid aortic valve and a previous ejection fraction of 45%, lower extremity edema History of Any Multi-Drug Resistant Organisms: None Reported Past Surgical History: Appendectomy, Cholecystectomy, Heart Catheterization, Hernia Repair Additional Past Surgical History / Comment(s): 11/03/15 TIMOTYH with cardioversion, cardiac cath, ROSANGELA CATARACTS Past Anesthesia/Blood Transfusion Reactions: No Reported Reaction Past Psychological History: No Psychological Hx Reported Smoking Status: Never smoker Past Alcohol Use History: None Reported Past Drug Use History: None Reported - Past Family History Mother Family Medical History: Cancer Additional Family Medical History / Comment(s): SKIN AND LUNG CANCER "MESOTHELIOMA" Father Family Medical History: CVA/TIA General Exam Limitations: no limitations General appearance: alert, in no apparent distress Head exam: Present: atraumatic, normocephalic Eye exam: Present: normal appearance, PERRL, EOMI ENT exam: Present: normal exam. Absent: mucous membranes dry Neck exam: Present: normal inspection Respiratory exam: Present: decreased breath sounds. Absent: respiratory distress, rales, accessory muscle use Cardiovascular Exam: Present: regular rate, normal rhythm GI/Abdominal exam: Present: soft. Absent: distended, tenderness, guarding Extremities exam: Present: pedal edema (1+ bilateral pitting edema). Absent: calf tenderness Neurological exam: Present: alert, oriented X3, CN II-XII intact. Absent: motor sensory deficit Psychiatric exam: Present: normal affect, normal mood Skin exam: Present: warm, dry, intact. Absent: cyanosis, diaphoretic Course Vital Signs 09/23/17 09/23/17 09/23/17 12:09 13:07 13:09 Temperature 98.3 F Pulse Rate 63 Pulse Rate [ 60 [address] ] Respiratory 20 16 Rate Blood Pressure 142/66 O2 Sat by Pulse 91 L Oximetry 09/23/17 13:16 Temperature 98.1 F Pulse Rate 60 Pulse Rate [ Court Abstractor ] Respiratory 18 Rate Blood Pressure 119/58 O2 Sat by Pulse 93 L Oximetry EKG Findings - EKG Comments: EKG Findings:: EKG: Normal sinus rhythm left ventricular hypertrophy with QRS widening, rate of 61, LA interval 158, QRS duration 128, QTC 473 no significant change compared to EKG from July 2017. No ST segment elevation or depression Medical Decision Making - Medical Decision Making 66-year-old female presenting with mild dyspnea and weight gain. On exam patient does have 1+ pitting edema in the lower extremities. Lungs are slightly diminished at the lung bases but no crackles or rales. Laboratory studies reveal stable hemoglobin, normal white blood cell count, INR is therapeutic at 2.9. Creatinine is 1.5 which is at or improved from baseline. BNP mildly elevated 1090. Troponin is negative. Chest x-ray shows cardiomegaly with no acute pulmonary edema or effusion. Patient is taking Lasix 60 mg twice a day, she is given a dose of Lasix in the emergency department. She is eager for discharge at this time. She will increase her Lasix to 60 mg 3 times daily for the next several days and will follow-up with her primary care physician or her hydrodynamicist within the next several days. Return with worsening symptoms. - Lab Data Result diagrams: 09/23/17 12:53 09/23/17 12:53 Lab Results 09/23/17 09/23/17 09/23/17 Range/Units 12:53 12:53 12:53 WBC 8.9 (3.8-10.6) k/uL RBC 4.92 (3.80-5.40) m/uL Hgb 14.0 (11.4-16.0) gm/dL Hct 42.9 (34.0-46.0) % MCV 87.2 (80.0-100.0) fL MCH 28.4 (25.0-35.0) pg MCHC 32.6 (31.0-37.0) g/dL RDW 14.6 (11.5-15.5) % Plt Count 171 (150-450) k/uL Neutrophils % 74 % Lymphocytes % 17 % Monocytes % 5 % Eosinophils % 2 % Basophils % 1 % Neutrophils # 6.6 (1.3-7.7) k/uL Lymphocytes # 1.5 (1.0-4.8) k/uL Monocytes # 0.5 (0-1.0) k/uL Eosinophils # 0.2 (0-0.7) k/uL Basophils # 0.1 (0-0.2) k/uL PT (9.0-12.0) sec INR (<1.2) APTT (22.0-30.0) sec Sodium 145 (137-145) mmol/L Potassium 4.0 (3.5-5.1) mmol/L Chloride 102 (98-107) mmol/L Carbon Dioxide 29 (22-30) mmol/L Anion Gap 14 mmol/L BUN 48 H (7-17) mg/dL Creatinine 1.51 H (0.52-1.04) mg/dL Est GFR (CKD-EPI)AfAm 42 (>60 ml/min/1.73 sqM) Est GFR (CKD-EPI)NonAf 36 (>60 ml/min/1.73 sqM) Glucose 231 H (74-99) mg/dL Calcium 8.8 (8.4-10.2) mg/dL Magnesium 2.0 (1.6-2.3) mg/dL Total Bilirubin 0.3 (0.2-1.3) mg/dL AST 26 (14-36) U/L ALT 37 (9-52) U/L Alkaline Phosphatase 164 H (38-126) U/L Total Creatine Kinase 144 H (30-135) U/L CK-MB (CK-2) 1.5 (0.0-2.4) ng/mL CK-MB (CK-2) Rel Index 1.0 Troponin I 0.015 (0.000-0.034) ng/mL NT-Pro-B Natriuret Pep pg/mL Total Protein 6.2 L (6.3-8.2) g/dL Albumin 3.7 (3.5-5.0) g/dL 09/23/17 09/23/17 Range/Units 12:53 12:53 WBC (3.8-10.6) k/uL RBC (3.80-5.40) m/uL Hgb (11.4-16.0) gm/dL Hct (34.0-46.0) % MCV (80.0-100.0) fL MCH (25.0-35.0) pg MCHC (31.0-37.0) g/dL RDW (11.5-15.5) % Plt Count (150-450) k/uL Neutrophils % % Lymphocytes % % Monocytes % % Eosinophils % % Basophils % % Neutrophils # (1.3-7.7) k/uL Lymphocytes # (1.0-4.8) k/uL Monocytes # (0-1.0) k/uL Eosinophils # (0-0.7) k/uL Basophils # (0-0.2) k/uL PT 23.1 H (9.0-12.0) sec INR 2.6 H (<1.2) APTT 30.1 H (22.0-30.0) sec Sodium (137-145) mmol/L Potassium (3.5-5.1) mmol/L Chloride (98-107) mmol/L Carbon Dioxide (22-30) mmol/L Anion Gap mmol/L BUN (7-17) mg/dL Creatinine (0.52-1.04) mg/dL Est GFR (CKD-EPI)AfAm (>60 ml/min/1.73 sqM) Est GFR (CKD-EPI)NonAf (>60 ml/min/1.73 sqM) Glucose (74-99) mg/dL Calcium (8.4-10.2) mg/dL Magnesium (1.6-2.3) mg/dL Total Bilirubin (0.2-1.3) mg/dL AST (14-36) U/L ALT (9-52) U/L Alkaline Phosphatase (38-126) U/L Total Creatine Kinase (30-135) U/L CK-MB (CK-2) (0.0-2.4) ng/mL CK-MB (CK-2) Rel Index Troponin I (0.000-0.034) ng/mL NT-Pro-B Natriuret Pep 1090 pg/mL Total Protein (6.3-8.2) g/dL Albumin (3.5-5.0) g/dL Disposition Clinical Impression: Congestive heart failure Disposition: HOME SELF-CARE Condition: Fair Instructions: Heart Failure (ED) Additional Instructions: Please follow up with primary care physician and cardiology. Return with worsening symptoms. Is patient prescribed a controlled substance at d/c from ED?: No Referrals: Dontae Quan DO [Primary Care Provider] - 1-2 days Time of Disposition: 14:35
[2017-09-23 13:05] LABS: Basophils # (A) 0.1 k/uL (0-0.2); Basophils % (A) 1 %; Eosinophils # (A) 0.2 k/uL (0-0.7); Eosinophils % (A) 2 %; HCT 42.9 % (34.0-46.0); Lymphocytes # (A) 1.5 k/uL (1.0-4.8); Lymphocytes % (A) 17 %; MCH 28.4 pg (25.0-35.0); MCHC 32.6 g/dL (31.0-37.0); MCV 87.2 fL (80.0-100.0); Mean Platelet Volume 8.4; Monocytes # (A) 0.5 k/uL (0-1.0); Monocytes % (A) 5 %; Neutrophils # (A) 6.6 k/uL (1.3-7.7); Neutrophils % (A) 74 %; Platelet Count 171 k/uL (150-450); RBC 4.92 m/uL (3.80-5.40); RDW 14.6 % (11.5-15.5); WBC 8.9 k/uL (3.8-10.6)
[2017-09-23 13:13] LABS: INR 2.6 (<1.2); Partial Thromboplastin Time 30.1 sec (22.0-30.0); Prothrombin Time 23.1 sec (9.0-12.0)
[2017-09-23 13:15] LABS: Albumin 3.7 g/dL (3.5-5.0); Calcium 8.8 mg/dL (8.4-10.2); Total Bilirubin 0.3 mg/dL (0.2-1.3); Total Protein 6.2 g/dL (6.3-8.2)
[2017-09-23 13:19] VITALS: RESP 18; TEMP 98.1
[2017-09-23 13:37] LABS: Creatine Kinase MB 1.5 ng/mL (0.0-2.4); Troponin I 0.015 ng/mL (0.000-0.034)
[2017-09-23] MEDS ORDERED: FUROSEMIDE 10 MG/ML 10 ML VIAL IV STA (13:49)
--- NOTE | 2017-09-23 14:17 | XR ---
EXAMINATION TYPE: XR chest 2V DATE OF EXAM: 09/23/2017 COMPARISON: 08/22/2017 INDICATION: Difficulty breathing short of breath TECHNIQUE: Frontal and lateral views of the chest are obtained. FINDINGS: The heart size is prominent. The pulmonary vasculature is normal. Suspicious focal consolidation is not identified. IMPRESSION: 1. Cardiomegaly. 2. An acute pulmonary process is not evident.
[2017-09-23 15:07] VITALS: BP 162/93; PULSE 61
== END 2017-09-23 15:05 | disposition home or self-care (01) ==
LOC: EC 12:00
DX: I11.0 Hypertensive heart disease with heart failure (principal); I50.9 Heart failure, unspecified; I48.91 Unspecified atrial fibrillation; I25.10 Atherosclerotic heart disease of native coronary artery without angina pectoris; E11.9 Type 2 diabetes mellitus without complications; E78.5 Hyperlipidemia, unspecified; E03.9 Hypothyroidism, unspecified; R79.89 Other specified abnormal findings of blood chemistry; E66.01 Morbid (severe) obesity due to excess calories; Z68.43 Body mass index [BMI] 50.0-59.9, adult; Z95.5 Presence of coronary angioplasty implant and graft; Z99.81 Dependence on supplemental oxygen; Z79.4 Long term (current) use of insulin; Z79.51 Long term (current) use of inhaled steroids; Z79.899 Other long term (current) drug therapy
CPT/HCPCS: 99285; 96374; 36415; 93005; 83880; 80053; 82550; 82553; 83735; 84484; 85025; 85610; 85730; 71046; J1940

== ENCOUNTER 2017-10-10 18:02 | Inpatient (IN) | payer OTHER ==
--- NOTE | 2017-10-10 18:14 | ED ---
General Adult HPI - General Chief complaint: Nausea/Vomiting/Diarrhea Stated complaint: Cardiac Time Seen by Provider: 10/10/17 18:03 Source: EMS, RN notes reviewed, old records reviewed Mode of arrival: EMS Limitations: no limitations - History of Present Illness Initial comments: This is a 66-year-old female the ER for eversion of weakness, weakness nausea vomiting. Nausea vomiting and diarrhea started today. Patient has significant medical history including heart disease diabetes high cholesterol. Patient states she's had vomiting for about 3 days. Started diarrhea today consistent and persistent diarrhea, no pain no bowel pain or shortness of breath no chest pain no change in medications no fevers, no family members with similar complaints. She admits to prior history of similar symptoms, unsure of cause - Related Data Home Medications Medication Instructions Recorded Confirmed Ferrous Sulfate [Feosol] 325 mg PO BID 07/14/14 10/10/17 Ranitidine HCl 150 mg PO BID 07/14/14 10/10/17 Atorvastatin [Lipitor] 40 mg PO HS 09/28/15 10/10/17 Budesonide/Formoterol Fumarate 1 puff INHALATION RT-BID 04/02/16 10/10/17 [Symbicort 160-4.5 Mcg Inhaler] Insulin Glulisine [Apidra Solostar] 8 unit SQ TID-W/MEALS 04/02/16 10/10/17 Albuterol Inhaler [Ventolin Hfa 2 puff INHALATION RT-Q6H PRN 11/13/16 10/10/17 Inhaler] Ipratropium-Albuterol Nebulize 3 ml INHALATION RT-TID PRN 01/13/17 10/10/17 [Duoneb 0.5 mg-3 mg/3 ml Soln] Amiodarone [Cordarone] 100 mg PO DAILY 02/16/17 10/10/17 Levothyroxine Sodium [Synthroid] 100 mcg PO DAILY 02/16/17 10/10/17 Loratadine [Claritin] 10 mg PO DAILY 05/03/17 10/10/17 Insulin Glargine [Lantus] 55 unit SQ HS 07/15/17 10/10/17 Nystatin 100,000 Unit/gm Powd 1 applic TOPICAL TID 07/15/17 10/10/17 [Mycostatin Powder] Warfarin [Coumadin] 5 mg PO SUMOTUWETHSA 10/10/17 10/10/17 Warfarin [Coumadin] 7.5 mg PO FR 10/10/17 10/10/17 Previous Rx's Medication Instructions Recorded Metoprolol Tartrate [Lopressor] 50 mg PO BID #60 tab 10/08/15 Furosemide [Lasix] 60 mg PO BID #0 08/23/17 Lisinopril [Zestril] 5 mg PO DAILY #60 tab 08/23/17 Allergies Allergy/AdvReac Type Severity Reaction Status Date / Time No Known Allergies Allergy Verified 10/10/17 18:32 Review of Systems ROS Statement: Those systems with pertinent positive or pertinent negative responses have been documented in the HPI. ROS Other: All systems not noted in ROS Statement are negative. Past Medical History Past Medical History: Atrial Fibrillation, Asthma, Coronary Artery Disease (CAD) , Chest Pain / Angina, Heart Failure, Diabetes Mellitus, Hyperlipidemia, Hypertension, Thyroid Disorder Additional Past Medical History / Comment(s): Severe obstructive sleep apnea- does not tolerate CPAP-wears O2 at 3L/NC at hs, pulmonary htn, morbid obesity, history of cellulitis right lower extremity-healed, hypothyroidism. She also has aortic valve stenosis with a potential of bicuspid versus tricuspid aortic valve and a previous ejection fraction of 45%, lower extremity edema History of Any Multi-Drug Resistant Organisms: None Reported Past Surgical History: Appendectomy, Cholecystectomy, Heart Catheterization, Hernia Repair Additional Past Surgical History / Comment(s): 11/03/15 TIMOTHY with cardioversion, cardiac cath, ROSANGELA CATARACTS Past Anesthesia/Blood Transfusion Reactions: No Reported Reaction Past Psychological History: No Psychological Hx Reported Smoking Status: Never smoker Past Alcohol Use History: None Reported Past Drug Use History: None Reported - Past Family History Mother Family Medical History: Cancer Additional Family Medical History / Comment(s): SKIN AND LUNG CANCER "MESOTHELIOMA" Father Family Medical History: CVA/TIA General Exam Limitations: no limitations General appearance: alert, lethargic Head exam: Present: atraumatic, normocephalic, normal inspection Eye exam: Present: normal appearance, PERRL, EOMI. Absent: scleral icterus, conjunctival injection, periorbital swelling ENT exam: Present: normal exam, mucous membranes moist Neck exam: Present: normal inspection. Absent: tenderness, meningismus, lymphadenopathy Respiratory exam: Present: normal lung sounds bilaterally. Absent: respiratory distress, wheezes, rales, rhonchi, stridor Cardiovascular Exam: Present: regular rate, normal rhythm, normal heart sounds. Absent: systolic murmur, diastolic murmur, rubs, gallop, clicks GI/Abdominal exam: Present: soft, normal bowel sounds. Absent: distended, tenderness, guarding, rebound, rigid Extremities exam: Present: normal inspection, full ROM, normal capillary refill. Absent: tenderness, pedal edema, joint swelling, calf tenderness Back exam: Present: normal inspection Neurological exam: Present: alert, oriented X3, CN II-XII intact Psychiatric exam: Present: normal affect, normal mood Skin exam: Present: warm, dry, intact, normal color. Absent: rash Course Vital Signs 10/10/17 18:09 Temperature 99.2 F Pulse Rate 65 Respiratory 18 Rate Blood Pressure 134/61 O2 Sat by Pulse 96 Oximetry - Reevaluation(s) Reevaluation #1: 10/10/17 19:20 Patient with no active vomiting no still feels weak lightheaded and not feeling well Reevaluation #2: 10/10/17 19:20 Medical record is reviewed, she has had prior hospital admission of similar events EKG Findings - EKG Comments: EKG Findings:: EKG shows normal sinus rhythm rate of 74, OK 136, QRS 138, QTc 470 Medical Decision Making - Medical Decision Making 66 female the ER with intractable nausea vomiting diarrhea severe dehydration, gastroenteritis, humidifier. Patient to be admitted for IV hydration and symptom control - Lab Data Result diagrams: 10/10/17 18:21 10/10/17 18:21 Lab Results 10/10/17 10/10/17 10/10/17 Range/Units 18:21 18:21 18:21 WBC 11.8 H (3.8-10.6) k/uL RBC 5.93 H (3.80-5.40) m/uL Hgb 16.7 H (11.4-16.0) gm/dL Hct 53.2 H (34.0-46.0) % MCV 89.7 (80.0-100.0) fL MCH 28.2 (25.0-35.0) pg MCHC 31.5 (31.0-37.0) g/dL RDW 14.9 (11.5-15.5) % Plt Count 198 (150-450) k/uL Neutrophils % 88 % Lymphocytes % 3 % Monocytes % 7 % Eosinophils % 0 % Basophils % 1 % Neutrophils # 10.4 H (1.3-7.7) k/uL Lymphocytes # 0.4 L (1.0-4.8) k/uL Monocytes # 0.9 (0-1.0) k/uL Eosinophils # 0.0 (0-0.7) k/uL Basophils # 0.1 (0-0.2) k/uL PT (9.0-12.0) sec INR (<1.2) APTT (22.0-30.0) sec D-Dimer (<0.60) mg/L FEU Sodium 139 (137-145) mmol/L Potassium 4.8 (3.5-5.1) mmol/L Chloride 103 (98-107) mmol/L Carbon Dioxide 19 L (22-30) mmol/L Anion Gap 17 mmol/L BUN 89 H* (7-17) mg/dL Creatinine 2.60 H (0.52-1.04) mg/dL Est GFR (CKD-EPI)AfAm 22 (>60 ml/min/1.73 sqM) Est GFR (CKD-EPI)NonAf 19 (>60 ml/min/1.73 sqM) Glucose 228 H (74-99) mg/dL Calcium 8.9 (8.4-10.2) mg/dL Magnesium 2.3 (1.6-2.3) mg/dL Total Bilirubin 0.7 (0.2-1.3) mg/dL AST 38 H (14-36) U/L ALT 37 (9-52) U/L Alkaline Phosphatase 154 H (38-126) U/L Total Creatine Kinase 390 H (30-135) U/L CK-MB (CK-2) 12.2 H* (0.0-2.4) ng/mL CK-MB (CK-2) Rel Index 3.1 Troponin I <0.012 (0.000-0.034) ng/mL Total Protein 7.1 (6.3-8.2) g/dL Albumin 4.3 (3.5-5.0) g/dL Lipase 125 (23-300) U/L 10/10/17 Range/Units 18:21 WBC (3.8-10.6) k/uL RBC (3.80-5.40) m/uL Hgb (11.4-16.0) gm/dL Hct (34.0-46.0) % MCV (80.0-100.0) fL MCH (25.0-35.0) pg MCHC (31.0-37.0) g/dL RDW (11.5-15.5) % Plt Count (150-450) k/uL Neutrophils % % Lymphocytes % % Monocytes % % Eosinophils % % Basophils % % Neutrophils # (1.3-7.7) k/uL Lymphocytes # (1.0-4.8) k/uL Monocytes # (0-1.0) k/uL Eosinophils # (0-0.7) k/uL Basophils # (0-0.2) k/uL PT 28.2 H (9.0-12.0) sec INR 3.1 H (<1.2) APTT 33.2 H (22.0-30.0) sec D-Dimer 0.37 (<0.60) mg/L FEU Sodium (137-145) mmol/L Potassium (3.5-5.1) mmol/L Chloride (98-107) mmol/L Carbon Dioxide (22-30) mmol/L Anion Gap mmol/L BUN (7-17) mg/dL Creatinine (0.52-1.04) mg/dL Est GFR (CKD-EPI)AfAm (>60 ml/min/1.73 sqM) Est GFR (CKD-EPI)NonAf (>60 ml/min/1.73 sqM) Glucose (74-99) mg/dL Calcium (8.4-10.2) mg/dL Magnesium (1.6-2.3) mg/dL Total Bilirubin (0.2-1.3) mg/dL AST (14-36) U/L ALT (9-52) U/L Alkaline Phosphatase (38-126) U/L Total Creatine Kinase (30-135) U/L CK-MB (CK-2) (0.0-2.4) ng/mL CK-MB (CK-2) Rel Index Troponin I (0.000-0.034) ng/mL Total Protein (6.3-8.2) g/dL Albumin (3.5-5.0) g/dL Lipase (23-300) U/L Disposition Clinical Impression: Nausea & vomiting, Acute kidney injury, Gastroenteritis Disposition: ADMITTED IP TO THIS HOSP Condition: Fair Is patient prescribed a controlled substance at d/c from ED?: No Referrals: Dontae Quan DO [Primary Care Provider] - 1-2 days
[2017-10-10] MEDS ORDERED: PANTOPRAZOLE 40 MG/10 ML VIAL IVP STA ×2 (18:18→19:17)
[2017-10-10] MEDS ORDERED: ONDANSETRON 4 MG/2 ML VIAL IVP STA (18:18)
--- NOTE | 2017-10-10 18:48 | XR ---
EXAMINATION TYPE: XR chest 1V portable DATE OF EXAM: 10/10/2017 COMPARISON: 09/23/2017 HISTORY: Short of breath TECHNIQUE: Single frontal view of the chest is obtained. FINDINGS: Heart appears enlarged. Lungs are clear of infiltrate. There is no heart failure. There ar e chest leads. Costophrenic angles are clear. IMPRESSION: No active cardiopulmonary disease. Cardiomegaly. No change.
[2017-10-10 18:49] LABS: Albumin 4.3 g/dL (3.5-5.0); Calcium 8.9 mg/dL (8.4-10.2); Magnesium 2.3 mg/dL (1.6-2.3); Potassium 4.8 mmol/L (3.5-5.1); Total Bilirubin 0.7 mg/dL (0.2-1.3); Total Protein 7.1 g/dL (6.3-8.2)
[2017-10-10 18:57] LABS: Basophils # (A) 0.1 k/uL (0-0.2); Basophils % (A) 1 %; Eosinophils % (A) 0 %; HCT 53.2 % (34.0-46.0); HGB 16.7 gm/dL (11.4-16.0); Lymphocytes # (A) 0.4 k/uL (1.0-4.8); Lymphocytes % (A) 3 %; MCH 28.2 pg (25.0-35.0); MCHC 31.5 g/dL (31.0-37.0); MCV 89.7 fL (80.0-100.0); Mean Platelet Volume 7.7; Monocytes # (A) 0.9 k/uL (0-1.0); Monocytes % (A) 7 %; Neutrophils # (A) 10.4 k/uL (1.3-7.7); Neutrophils % (A) 88 %; Platelet Count 198 k/uL (150-450); RBC 5.93 m/uL (3.80-5.40); RDW 14.9 % (11.5-15.5); WBC 11.8 k/uL (3.8-10.6)
[2017-10-10 18:58] LABS: Troponin I <0.012 ng/mL (0.000-0.034)
[2017-10-10 19:11] LABS: D-Dimer 0.37 mg/L FEU (<0.60); INR 3.1 (<1.2); Partial Thromboplastin Time 33.2 sec (22.0-30.0); Prothrombin Time 28.2 sec (9.0-12.0)
[2017-10-10 19:17] LABS: Creatine Kinase 390 U/L (30-135); Creatine Kinase MB 12.2 ng/mL (0.0-2.4)
[2017-10-10] MEDS ORDERED: ONDANSETRON 4 MG/2 ML VIAL IVP PRN (19:17)
[2017-10-10] MEDS ORDERED: SODIUM CHLORIDE 0.9% 1,000 ML IV STA ×2 (19:17)
[2017-10-10] MEDS ORDERED: diphenhydrAMINE 50 MG/ML 1 ML VIAL IVP PRN (19:22)
[2017-10-10 21:53] LABS: Glucose,Whole Blood 256 mg/dL (75-99)
[2017-10-10] MEDS ORDERED: IPRATROPIUM-ALBUTEROL 3 ML NEB INHALATION PRN (22:53)
[2017-10-10] MEDS ORDERED: ALBUTEROL INHALER 60 PUFF/8 GM INHALER INHALATION PRN (22:53)
[2017-10-11] MEDS: METOPROLOL TARTRATE 50 MG TAB PO SCH ×3 (00:59→21:33)
[2017-10-11] MEDS: METOCLOPRAMIDE 5 MG/ML 2 ML VIAL IVP SCH ×4 (01:02→16:32)
[2017-10-11] MEDS: FAMOTIDINE 20 MG TAB PO SCH ×2 (01:04→08:21)
[2017-10-11] MEDS: ATORVASTATIN 40 MG TAB PO SCH (01:04)
[2017-10-11] MEDS: INSULIN DETEMIR 100 UNIT/ML 10 ML VIAL SQ SCH ×2 (01:05→21:33)
[2017-10-11] MEDS: NYSTATIN 100,000 UNIT/GM POWD 15 GM TOPICAL SCH ×4 (01:05→21:35)
[2017-10-11] MEDS: SODIUM CHLORIDE 0.9% 1,000 ML IV SCH ×4 (01:06→16:26)
[2017-10-11] MEDS: LEVOTHYROXINE 100 MCG TAB PO SCH (06:02)
[2017-10-11 07:25] LABS: Glucose,Whole Blood 158 mg/dL (75-99)
[2017-10-11] MEDS: AMIODARONE 100 MG TAB PO SCH (08:21)
[2017-10-11] MEDS: PANTOPRAZOLE 40 MG/10 ML VIAL IVP SCH ×2 (08:22→21:34)
[2017-10-11] MEDS: SYMBICORT 160-4.5 MCG INHALER INHALATION SCH ×2 (08:41→20:33)
[2017-10-11] MEDS ORDERED: ENOXAPARIN 30 MG/0.3 ML SYRINGE SQ SCH (09:00)
[2017-10-11 09:24] LABS: INR 4.3 (<1.2); Prothrombin Time 39.1 sec (9.0-12.0)
[2017-10-11 09:29] LABS: Calcium 7.7 mg/dL (8.4-10.2)
[2017-10-11] MEDS ORDERED: SODIUM CHLORIDE 0.9% 250 ML IV ONE (11:26)
[2017-10-11 11:42] LABS: Glucose,Whole Blood 169 mg/dL (75-99)
--- NOTE | 2017-10-11 15:03 | CONS ---
CONSULTATION REASON FOR CONSULT: Renal failure. HISTORY OF PRESENT ILLNESS: The patient is a 66-year-old female who was admitted to the hospital with increased diarrhea, nausea, vomiting, increased weakness for the past few days prior to admission. The patient denied any prior history of kidney diseases. A serum creatinine was at 2.6 yesterday. It is at 3.87 today. Previous labs showed a serum creatinine of 1.5 and 1.7 mg/dL in August of 2017. The patient was on RODNEY inhibitors at home prior to admission along with diuretics. These are currently on hold. Blood pressure was significantly low with systolic in the 80s on admission. The patient is maintained on aggressive IV hydration. She states she is voided. PAST MEDICAL HISTORY: Significant for hypertension, asthma, coronary artery disease, history of atrial fibrillation, type 2 diabetes, hyperlipidemia, hypertension, hypothyroidism, COPD, obesity, cellulitis previously in the lower extremities, aortic valve stenosis, cardiomyopathy, ejection fraction 45% previously. PAST SURGICAL HISTORY: Of appendectomy, cholecystectomy, cardiac catheterization, hernia repair, TIMOTHY, cardiac catheterization, bilateral cataract surgery. SOCIAL HISTORY: Negative for smoking, drugs abuse or alcohol abuse. MEDICATIONS: Medications at home prior to admission included Coumadin, insulin, Nystatin, Claritin, Synthroid, Cordarone, inhalers, Lipitor, ranitidine, iron. Lasix, , Minipress ALLERGIES: None. REVIEW OF SYSTEMS: As per HPI. Other systems negative. PHYSICAL EXAMINATION: Patient is comfortable, awake, alert, and oriented x3, not in any acute distress. Blood pressure is 104/49, heart rate is 62 per minute. She is afebrile. Examination of the heart: S1, S2. Examination lungs: Bilateral breath sounds are heard. Abdomen is soft, nontender. Exam of extremities shows no significant edema. WAITER/[employer] exam is grossly intact. Patient moving all 4 extremities. LABS: Show sodium 140, potassium 5.0, chloride 106, CO2 16, BUN 96, serum creatinine 2.87. C diff toxin is negative. UA is not available. ASSESSMENT: 1. Acute kidney injury secondary to hypotension and hypoperfusion and volume depletion. Continue with aggressive IV hydration. Continue to hold off on RODNEY inhibitors. Repeat labs in the a.m. I will check an ultrasound of the kidney as well as a urinalysis. 2. Metabolic acidosis secondary to diarrhea and renal failure. Start oral sodium bicarb. If acidosis is worse, we will change IV fluids to IV bicarb tomorrow. 3. Diarrhea most likely viral gastroenteritis, currently symptomatically improved. 4. Chronic kidney disease. Previous creatinine has been at about 1.5-1.7 mg/dL in August of 2017. UA was completely benign in June 2017. Did not show or acute kidney injury at that time. Some replacement. She is at stage IIIB. PLANS: Chest ultrasound of the kidneys. Check urine analysis. Continue with aggressive IV hydration. Avoid any nephrotoxic medications. Repeat labs in the a.m. Thank you for this consultation. We will continue to follow the patient with you during her hospitalization. MMODL / IJN: [id number] /
[2017-10-11 16:58] LABS: Glucose,Whole Blood 224 mg/dL (75-99)
--- NOTE | 2017-10-11 17:48 | HP ---
HISTORY AND PHYSICAL DATE OF ADMISSION: October 10, 2017. DATE OF SERVICE: October 11, 2017. PRESENTING COMPLAINT: Tired. HISTORY OF PRESENTING COMPLAINT: This is a very pleasant 66-year-old patient of Dr. Quan whose chronic stable medical conditions include CHF, EF 60%, chronic cor pulmonale, paroxysmal atrial fibrillation on Coumadin, hypothyroidism, sleep apnea, morbid obesity, on home oxygen 3 L, secondary pulmonary hypertension, chronic kidney disease stage IIIB. The patient presents with 3 days of increasing diarrhea, multiple stools, started also having nausea, vomiting, felt totally weak, tired, run down, dehydrated, lethargic and presented to the ER. Patient's creatinine bumped up from 1.85 on August 23 to 2.6 on presentation and 3.87 this morning. The patient denies any fever and chills. The patient really feels tired and exhausted and run down. Admitted for the same. REVIEW OF SYSTEMS: CONSTITUTIONAL: Tired, exhausted. HEENT none. RESPIRATORY: Baseline short of breath. CARDIOVASCULAR: None. GASTROINTESTINAL: As above. GENITOURINARY none. MUSCULOSKELETAL: Pain in the joints. DERMATOLOGICAL, HEMATOLOGIC AND LYMPHATICS: None. PSYCHIATRY: Tired, lethargic. NEUROLOGICAL: None. PAST MEDICAL HISTORY: Past medical history of paroxysmal atrial fibrillation, hypothyroid, obstructive sleep apnea, morbid obesity, hyperlipidemia, diabetes mellitus type 2, hypoxic respiratory failure on 3 L oxygen at home, secondary pulmonary hypertension, cor pulmonale, CHF from diastolic dysfunction. PAST SURGICAL HISTORY: Appendectomy, cholecystectomy, cardiac catheterization, TIMOTHY, cardioversion, bilateral cataract surgery. SOCIAL HISTORY: The patient lives at [facility] in [place]. Uses a walker. Lives by herself. No smoking. No alcohol. FAMILY HISTORY: Lung cancer and mesothelioma. HOME MEDICATIONS: 1. Coumadin 5 mg daily except for Coumadin 5 mg on Sunday, Sunday, Sunday, Sunday, , Sunday. 2. Claritin 10 mg a day. 3. DuoNeb t.i.d. p.r.n. 4. Ventolin HFA 2 puffs q.6h p.r.n. 5. Coumadin 7.5 on Fridays. 6. Zantac 150 mg p.o. b.i.d. 7. Nystatin topical t.i.d. 8. Lopressor 50 mg b.i.d. 9. Zestril 5 mg p.o. daily. 10.Synthroid 100 mcg p.o. daily. 11.Insulin Lantus 55 units subcu q.h.s. 12.8 units Apidra with meals. 13.Lasix 60 mg p.o. b.i.d. 14.Iron 325 p.o. b.i.d. 15.Symbicort 1 puff b.i.d. 16.Lipitor 40 mg q.h.s. 17.Cordarone 100 mg p.o. daily. ALLERGIES: None. PHYSICAL EXAMINATION: VITAL SIGNS: On examination vital signs on presentation, temperature 99.2, pulse 55, respiratory 18, blood pressure 134/61, pulse ox 96% on 4 L. GENERAL APPEARANCE: Morbidly obese. BMI 51.9. Lying in bed, very tired-appearing, lethargic. EYES: Pupils equal. Conjunctivae normal. HEENT: External appearance of nose and ears normal. Oral cavity dry. NECK: Short thick, JVD unable to assess. Mass not palpable. RESPIRATORY: Effort increased. LUNGS: Distant breath sounds. CARDIOVASCULAR: Heart sounds muffled. No edema. ABDOMEN: Distended, soft. Minimal tenderness. Liver and spleen not palpable. LYMPHATIC: No lymph nodes palpable in the neck and axilla. PSYCHIATRY: Patient able to answer questions but is tired and lethargic. NEUROLOGICAL: Pupils equal. Cranial nerves grossly intact. Power and sensation grossly intact. Moving limbs and following commands. INVESTIGATIONS: White count 11.8, hemoglobin 16.7, INR 3.1, potassium 4.8, BUN 89, creatinine 2.60. Patient's BUN and creatinine was 56 and 1.85 on 08/23/2017. Troponin less than 0.012. C diff is negative. EKG normal sinus rhythm. ASSESSMENT: 1. Acute renal failure, prerenal for severe gastroenteritis. 2. Chronic congestive heart failure from diastolic dysfunction. Ejection fraction 60%. 3. Chronic cor pulmonale secondary to pulmonary hypertension. 4. Paroxysmal atrial fibrillation chronically on Coumadin, currently in sinus rhythm. 5. Hypothyroidism. 6. Obstructive sleep apnea does not use CPAP machine. 7. Morbid obesity BMI greater than 40. 8. Hyperlipidemia. 9. Diabetes mellitus type 2, chronically on insulin. 10.Chronic hypoxic respiratory failure on 3 L oxygen at home. 11.Secondary pulmonary hypertension, moderate to severe secondary to chronic obstructive pulmonary disease. 12.Chronic kidney disease, stage IIIB, from hypertensive nephrosclerosis. 13.Acute metabolic encephalopathy from acute renal failure. PLAN: Home medications will be resumed. The patient's Coumadin will be held for today and start tomorrow. Patient will be given IV fluids and get a nephrology opinion. Keep it a close eye on the patient. The patient will be put on a full liquid diet. Care was discussed with the patient. Given his multiple comorbidities, prognosis is guarded. Accu-Cheks to be followed. Will resume the dose of Lantus but will hold off the scheduled dose. Copy Dr. Quan. MMJUAN J / JUMAN: [id number] /
[2017-10-11] MEDS ORDERED: WARFARIN 5 MG TAB PO SCH (18:00)
[2017-10-11 21:13] LABS: Glucose,Whole Blood 228 mg/dL (75-99)
[2017-10-12] MEDS: ATORVASTATIN 40 MG TAB PO SCH ×2 (00:02→20:37)
[2017-10-12] MEDS: METOCLOPRAMIDE 5 MG/ML 2 ML VIAL IVP SCH ×5 (00:03→23:15)
[2017-10-12] MEDS: SODIUM CHLORIDE 0.9% 1,000 ML IV SCH ×5 (00:04→17:09)
[2017-10-12] MEDS: LEVOTHYROXINE 100 MCG TAB PO SCH (06:22)
[2017-10-12 07:19] LABS: Glucose,Whole Blood 117 mg/dL (75-99)
[2017-10-12] MEDS: SYMBICORT 160-4.5 MCG INHALER INHALATION SCH ×2 (07:26→19:41)
[2017-10-12 08:39] LABS: Calcium 7.7 mg/dL (8.4-10.2); Potassium 4.6 mmol/L (3.5-5.1)
[2017-10-12] MEDS: PANTOPRAZOLE 40 MG/10 ML VIAL IVP SCH ×2 (09:15→20:56)
[2017-10-12] MEDS: NYSTATIN 100,000 UNIT/GM POWD 15 GM TOPICAL SCH ×3 (09:20→20:56)
[2017-10-12] MEDS: AMIODARONE 100 MG TAB PO SCH (09:20)
[2017-10-12] MEDS: METOPROLOL TARTRATE 50 MG TAB PO SCH ×2 (09:20→20:37)
[2017-10-12] MEDS: SODIUM BICARBONATE TAB 650 MG TAB PO SCH ×2 (11:11→20:37)
--- NOTE | 2017-10-12 11:31 | P.PN ---
Subjective Patient is seen in follow-up for acute kidney injury. Her creatinine in August 2016 was in the range of 1.5-1.7. At that time she was admitted for CHF exacerbation and required IV diuresis. Patient presents this admission with vomiting and diarrhea going on for about 4-5 days prior to admission. She is currently maintained on normal saline at 1 25 mL an hour. She was also taking Lasix and lisinopril at home. States she has little urine output. She is tolerating oral intake better. She has history of diastolic CHF with moderate pulmonary hypertension. Vital signs are stable. General: The patient appeared well nourished and normally developed. HEENT: Head exam is unremarkable. Neck is without jugular venous distension. LUNGS: Lungs are clear to auscultation and percussion. Breath sounds decreased. HEART: Rate and Rhythm are regular. First and second heart sounds normal. No murmurs, rubs or gallops. ABDOMEN: Abdominal exam reveals normal bowel sounds. Non-tender and non- distended. No evidence of peritonitis. EXTREMITITES: No clubbing, cyanosis, or edema. Objective - Vital Signs Vital signs: Vital Signs Temp 97.8 F 10/12/17 05:35 Pulse 60 10/12/17 07:46 Resp 18 10/12/17 05:35 BP 129/51 10/12/17 10:00 Pulse Ox 95 10/12/17 07:35 Intake & Output 10/11/17 10/12/17 10/12/17 18:59 06:59 18:59 Intake Total 600 Output Total 100 Balance 600 -100 Weight 129.5 kg Intake: Oral 600 Output: Urine 100 Other: # Voids 1 1 - Labs CBC & Chem 7: 10/10/17 18:21 10/12/17 07:19 Labs: Abnormal Lab Results - Last 24 Hours (Table) 10/11/17 10/11/17 10/11/17 Range/Units 11:40 16:48 21:12 PT (9.0-12.0) sec INR (<1.2) Carbon Dioxide (22-30) mmol/L BUN (7-17) mg/dL Creatinine (0.52-1.04) mg/dL Glucose (74-99) mg/dL POC Glucose (mg/dL) 169 H 224 H 228 H (75-99) mg/dL Calcium (8.4-10.2) mg/dL 10/12/17 10/12/17 10/12/17 Range/Units 07:17 07:19 07:19 PT 36.0 H (9.0-12.0) sec INR 4.0 H (<1.2) Carbon Dioxide 18 L (22-30) mmol/L BUN 96 H* (7-17) mg/dL Creatinine 3.79 H (0.52-1.04) mg/dL Glucose 103 H (74-99) mg/dL POC Glucose (mg/dL) 117 H (75-99) mg/dL Calcium 7.7 L (8.4-10.2) mg/dL Assessment and Plan Plan: Assessment: 1. Nonoliguric acute kidney injury secondary to ATN secondary to intravascular volume depletion from diarrhea and vomiting and further worsened with the use of diuretics and Gibson inhibitor. Creatinine peaked at 3.87 this admission and is 3.79 today. Creatinine in August 2017 was in the range of 1.5-1.7 which is likely her baseline. Recent urinalysis was benign. Rule out urinary retention. 2. Chronic kidney disease stage III with baseline creatinine in the range of 1.5-1.7 secondary to cardiorenal syndrome. 3. Diastolic CHF with moderate pulmonary hypertension. 4. Insulin-dependent diabetes mellitus. 5. Vomiting and diarrhea related to viral gastroenteritis. Improved. C. diff negative. 6. Metabolic acidosis secondary to acute kidney injury and diarrhea. Improved. Plan: I will decrease rate of normal saline to 75 mL an hour. Check renal ultrasound. Check postvoid residual. Continue to hold diuretics and lisinopril for now. Add oral sodium bicarbonate 650 mg twice daily. Repeat electrolytes in the morning.
[2017-10-12 12:29] LABS: Glucose,Whole Blood 156 mg/dL (75-99)
--- NOTE | 2017-10-12 13:13 | US ---
EXAMINATION TYPE: US kidneys/renal and bladder DATE OF EXAM: 10/12/2017 COMPARISON: None CLINICAL HISTORY: faby. Low urine output per patient. Patient states no pain. EXAM MEASUREMENTS: Right Kidney: 11.5 x 4.7 x 5.0 cm Left Kidney: 10.1 x 5.1 x 5.3 cm Limited exam due to patient body habitus Right Kidney: Limited visualization. Portions seen appear wnl. Left Kidney: Limited visualization. Possible cortical thinning. Bladder: Mildly distended. Bilateral Jets suboptimally seen There is no evidence for hydronephrosis at this point in time. No nephrolithiasis is seen. The urina ry bladder is anechoic. Bilateral ureteral jets are seen. IMPRESSION: Very limited visualization of the kidneys secondary to patient body habitus. No gross evidence of hyd ronephrosis. Possible renal cortical thinning suggesting medical renal disease.
[2017-10-12 17:03] LABS: Glucose,Whole Blood 137 mg/dL (75-99)
[2017-10-12 21:19] LABS: Glucose,Whole Blood 130 mg/dL (75-99)
[2017-10-12] MEDS: INSULIN DETEMIR 100 UNIT/ML 10 ML VIAL SQ SCH (21:37)
--- NOTE | 2017-10-12 21:58 | PN ---
PROGRESS NOTE DATE OF SERVICE: 10/12/2017 PRESENTING COMPLAINT: Tired. INTERVAL HISTORY: This patient presented with acute renal failure, metabolic encephalopathy. Doing better. Did tolerate some breakfast. Sitting up in a chair. Daughter is present. Feels tired. Has not slept too well. REVIEW OF SYSTEMS: Done for constitutional, cardiovascular, GI, pulmonary; relevant findings as above. CURRENT MEDICATIONS: Reviewed. They include IV fluids at 75 mL/hour. PHYSICAL EXAMINATION: Temperature 96.9, pulse 65, respiration 16, blood pressure 101/67, pulse ox 94% on room air. GENERAL APPEARANCE: Sitting up on a chair, awake. Tired-appearing. EYES: Pupils equal. Conjunctivae normal. HEENT: External appearance of nose and ears normal. Oral cavity normal. NECK: JVD not raised. Mass not palpable. RESPIRATORY: Effort normal. LUNGS: Distant breath sounds. CARDIOVASCULAR: Heart sounds muffled. No edema. ABDOMEN: Distended, soft. Liver and spleen not palpable. PSYCHIATRY: Alert and oriented x3. Mood and affect a bit tired-appearing. INVESTIGATIONS: INR is 4. Potassium 4.6, BUN 96, creatinine 3.79. ASSESSMENT: 1. Acute renal failure, prerenal, from severe gastroenteritis, worsening. 2. Chronic congestive heart failure from diastolic dysfunction, ejection fraction 60%. 3. Chronic cor pulmonale secondary to pulmonary hypertension. 4. Paroxysmal atrial fibrillation, chronically on Coumadin, currently in sinus rhythm. 5. Hypothyroidism. 6. Obstructive sleep apnea. Does not use a CPAP machine. 7. Morbid obesity with body mass index greater than 40. 8. Hyperlipidemia. 9. Diabetes mellitus, type 2, chronically on insulin. 10.Chronic hypoxic respiratory failure, on 3 L of oxygen at home. 11.Secondary pulmonary hypertension, moderate to severe, secondary to chronic obstructive pulmonary disease. 12.Chronic kidney disease, stage IIIB, from hypertensive nephrosclerosis. 13.Acute metabolic encephalopathy from acute renal failure, improving. PLAN: Renal function is still slowly getting worse. We are hoping it will plateau off and start to come down by tomorrow. Coumadin will be held for right now. Care was discussed the patient and daughter at the bedside. MMODL / IJN: [id number] /
[2017-10-13] MEDS: SODIUM CHLORIDE 0.9% 1,000 ML IV SCH ×3 (06:35→10:59)
[2017-10-13] MEDS: LEVOTHYROXINE 100 MCG TAB PO SCH (06:37)
[2017-10-13] MEDS: METOCLOPRAMIDE 5 MG/ML 2 ML VIAL IVP SCH ×3 (06:38→17:35)
[2017-10-13 07:20] LABS: Glucose,Whole Blood 109 mg/dL (75-99)
[2017-10-13 07:48] LABS: INR 1.9 (<1.2); Prothrombin Time 17.2 sec (9.0-12.0)
[2017-10-13 08:06] LABS: Calcium 8.1 mg/dL (8.4-10.2); Magnesium 2.4 mg/dL (1.6-2.3); Potassium 4.4 mmol/L (3.5-5.1)
[2017-10-13] MEDS: SYMBICORT 160-4.5 MCG INHALER INHALATION SCH ×2 (08:16→20:16)
[2017-10-13] MEDS: AMIODARONE 100 MG TAB PO SCH (08:44)
[2017-10-13] MEDS: METOPROLOL TARTRATE 50 MG TAB PO SCH ×2 (08:44→22:24)
[2017-10-13] MEDS: PANTOPRAZOLE 40 MG/10 ML VIAL IVP SCH ×2 (08:45→22:24)
[2017-10-13] MEDS: NYSTATIN 100,000 UNIT/GM POWD 15 GM TOPICAL SCH ×3 (08:45→22:25)
[2017-10-13] MEDS: SODIUM BICARBONATE TAB 650 MG TAB PO SCH ×2 (08:45→22:24)
--- NOTE | 2017-10-13 10:26 | P.PN ---
Subjective Patient is seen in follow-up for acute kidney injury. Her creatinine in August 2016 was in the range of 1.5-1.7. At that time she was admitted for CHF exacerbation and required IV diuresis. Patient presents this admission with vomiting and diarrhea going on for about 4-5 days prior to admission. She is currently maintained on normal saline at 75 mL an hour. She was also taking Lasix and lisinopril at home which are currently held. Admits to good urine output. She is tolerating oral intake better. Renal function improving with creatinine down to 2.21 today. She has history of diastolic CHF with moderate pulmonary hypertension. Vital signs are stable. General: The patient appeared well nourished and normally developed. HEENT: Head exam is unremarkable. Neck is without jugular venous distension. LUNGS: Lungs are clear to auscultation and percussion. Breath sounds decreased. HEART: Rate and Rhythm are regular. First and second heart sounds normal. No murmurs, rubs or gallops. ABDOMEN: Abdominal exam reveals normal bowel sounds. Non-tender and non- distended. No evidence of peritonitis. EXTREMITITES: Trace edema. Objective - Vital Signs Vital signs: Vital Signs Temp 98.0 F 10/13/17 06:44 Pulse 63 10/13/17 06:44 Resp 20 10/13/17 06:44 BP 127/55 10/13/17 06:44 Pulse Ox 92 L 10/13/17 06:44 Intake & Output 10/12/17 10/13/17 10/13/17 18:59 06:59 18:59 Intake Total 450 Output Total 400 2000 Balance -400 -1550 Weight 130 kg Intake: Oral 450 Output: Urine 300 2000 Post Void Residual 100 - Labs CBC & Chem 7: 10/10/17 18:21 10/13/17 07:00 Labs: Abnormal Lab Results - Last 24 Hours (Table) 10/12/17 10/12/17 10/12/17 Range/Units 12:22 17:01 21:16 PT (9.0-12.0) sec INR (<1.2) Chloride (98-107) mmol/L Carbon Dioxide (22-30) mmol/L BUN (7-17) mg/dL Creatinine (0.52-1.04) mg/dL POC Glucose (mg/dL) 156 H 137 H 130 H (75-99) mg/dL Calcium (8.4-10.2) mg/dL Magnesium (1.6-2.3) mg/dL 10/13/17 10/13/17 10/13/17 Range/Units 07:00 07:00 07:19 PT 17.2 H (9.0-12.0) sec INR 1.9 H (<1.2) Chloride 111 H (98-107) mmol/L Carbon Dioxide 21 L (22-30) mmol/L BUN 78 H (7-17) mg/dL Creatinine 2.21 H (0.52-1.04) mg/dL POC Glucose (mg/dL) 109 H (75-99) mg/dL Calcium 8.1 L (8.4-10.2) mg/dL Magnesium 2.4 H (1.6-2.3) mg/dL Assessment and Plan Plan: Assessment: 1. Nonoliguric acute kidney injury secondary to ATN secondary to intravascular volume depletion from diarrhea and vomiting and further worsened with the use of diuretics and Gibson inhibitor. Creatinine peaked at 3.87 this admission and is 2.21 today. Creatinine in August 2017 was in the range of 1.5-1.7 which is likely her baseline. Recent urinalysis was benign. No evidence of urinary retention. No evidence of hydronephrosis noted on renal ultrasound. 2. Chronic kidney disease stage III with baseline creatinine in the range of 1.5-1.7 secondary to cardiorenal syndrome. 3. Diastolic CHF with moderate pulmonary hypertension. 4. Insulin-dependent diabetes mellitus. 5. Vomiting and diarrhea related to viral gastroenteritis. Improved. C. diff negative. 6. Metabolic acidosis secondary to acute kidney injury and diarrhea. Improved. Plan: I will decrease the rate of normal saline 50 mL an hour. Continue to hold diuretics and lisinopril for now. Maintain oral sodium bicarbonate 650 mg twice daily. Repeat electrolytes in the morning.
[2017-10-13 12:02] LABS: Glucose,Whole Blood 124 mg/dL (75-99)
[2017-10-13 14:47] VITALS: RESP 18
[2017-10-13 17:07] LABS: Glucose,Whole Blood 234 mg/dL (75-99)
[2017-10-13] MEDS ORDERED: WARFARIN 5 MG TAB PO SCH ×2 (18:00)
--- NOTE | 2017-10-13 18:29 | PN ---
PROGRESS NOTE DATE OF SERVICE: 10/13/2017 PRESENT COMPLAINT: Tired. INTERVAL HISTORY: This patient presented with acute metabolic encephalopathy, acute renal failure, tired, sitting up. Renal function is improving. Did have a bowel movement. REVIEW OF SYSTEMS: Done for constitutional, cardiovascular, GI, pulmonary; relevant findings as above. CURRENT MEDICATIONS: Reviewed that include IV fluids at 50 mL an hour. EXAMINATION: Temperature 97.8, pulse 93, respirations 18, blood pressure 132/72, pulse ox 89% on room air. GENERAL APPEARANCE: Sitting up in a chair; awake, tired. EYES: Pupils equal. Conjunctivae normal. HEENT: External nose and ears normal. Oral cavity normal. NECK: JVD not raised. Mass not palpable. RESPIRATORY: Effort normal. LUNGS: Distant breath sounds. CARDIOVASCULAR: Heart sounds muffled. No edema. ABDOMEN: Distended, soft. Liver and spleen not palpable. PSYCHIATRY: Alert and oriented x3. Mood and affect tired-appearing. INVESTIGATIONS: White count 1.9. BUN 78, creatinine 2.21. ASSESSMENT: 1. Acute renal failure, prerenal, from severe gastroenteritis, started to improve. 2. Chronic congestive heart failure from diastolic dysfunction, ejection fraction 60%. 3. Chronic cor pulmonale secondary to pulmonary hypertension. 4. Paroxysmal atrial fibrillation, chronically on Coumadin, currently in sinus rhythm. 5. Hypothyroidism. 6. Obstructive sleep apnea, does not use CPAP. 7. Morbid obesity, BMI greater than 40. 8. Hyperlipidemia. 9. Diabetes mellitus type 2, chronically on insulin. 10.Chronic hypoxic respiratory failure on 3L oxygen. 11.Secondary pulmonary hypertension, moderate to severe secondary to chronic obstructive pulmonary disease. 12.Chronic kidney stage 3B, from hypertensive nephrosclerosis. 13.Acute metabolic encephalopathy from acute renal failure. PLAN: Continue current medication and treatment plan. Repeat electrolytes in the morning. Coumadin to be resumed tonight. Care was discussed with the patient. MMODL / IJN: [id number] /
[2017-10-13 21:21] LABS: Glucose,Whole Blood 248 mg/dL (75-99)
[2017-10-13] MEDS: ATORVASTATIN 40 MG TAB PO SCH (22:24)
[2017-10-13] MEDS: INSULIN DETEMIR 100 UNIT/ML 10 ML VIAL SQ SCH (22:24)
[2017-10-13] MEDS: INSULIN ASPART 100 UNIT/ML 1 ML 10 ML VIAL SQ SCH (22:25)
[2017-10-14] MEDS: METOCLOPRAMIDE 5 MG/ML 2 ML VIAL IVP SCH ×3 (00:10→12:02)
[2017-10-14] MEDS: SODIUM CHLORIDE 0.9% 1,000 ML IV SCH (05:41)
[2017-10-14] MEDS: LEVOTHYROXINE 100 MCG TAB PO SCH (05:51)
[2017-10-14 07:02] LABS: Glucose,Whole Blood 81 mg/dL (75-99)
[2017-10-14] MEDS: SYMBICORT 160-4.5 MCG INHALER INHALATION SCH (07:35)
[2017-10-14] MEDS: INSULIN ASPART 100 UNIT/ML 1 ML 10 ML VIAL SQ SCH ×2 (07:38→12:02)
[2017-10-14 08:42] LABS: INR 1.5 (<1.2); Prothrombin Time 13.7 sec (9.0-12.0)
[2017-10-14 08:47] LABS: Calcium 8.5 mg/dL (8.4-10.2); Potassium 4.9 mmol/L (3.5-5.1)
[2017-10-14] MEDS: AMIODARONE 100 MG TAB PO SCH (09:13)
[2017-10-14] MEDS: SODIUM BICARBONATE TAB 650 MG TAB PO SCH (09:13)
[2017-10-14] MEDS: METOPROLOL TARTRATE 50 MG TAB PO SCH (09:13)
[2017-10-14] MEDS: NYSTATIN 100,000 UNIT/GM POWD 15 GM TOPICAL SCH (09:14)
[2017-10-14] MEDS: PANTOPRAZOLE 40 MG/10 ML VIAL IVP SCH (09:14)
--- NOTE | 2017-10-14 10:25 | P.PN ---
Subjective Patient is seen in follow-up for acute kidney injury. Her creatinine in August 2016 was in the range of 1.5-1.7. At that time she was admitted for CHF exacerbation and required IV diuresis. Patient presents this admission with vomiting and diarrhea going on for about 4-5 days prior to admission. She is currently maintained on normal saline at 50 mL an hour. She was also taking Lasix and lisinopril at home which are currently held. Admits to good urine output. She is tolerating oral intake better. Renal function improving with creatinine down to 1.3 today. She has history of diastolic CHF with moderate pulmonary hypertension. Does admit to dyspnea with minimal exertion. Vital signs are stable. General: The patient appeared well nourished and normally developed. HEENT: Head exam is unremarkable. Neck is without jugular venous distension. LUNGS: Lungs are clear to auscultation and percussion. Breath sounds decreased. HEART: Rate and Rhythm are regular. First and second heart sounds normal. No murmurs, rubs or gallops. ABDOMEN: Abdominal exam reveals normal bowel sounds. Non-tender and non- distended. No evidence of peritonitis. EXTREMITITES: Trace edema. Objective - Vital Signs Vital signs: Vital Signs Temp 96.9 F L 10/14/17 06:27 Pulse 60 10/14/17 06:27 Resp 18 10/14/17 06:27 BP 159/93 10/14/17 06:27 Pulse Ox 95 10/14/17 06:27 Intake & Output 10/13/17 10/14/17 10/14/17 18:59 06:59 18:59 Intake Total 440 500 Output Total 1500 Balance 440 -1000 Weight 131.5 kg Intake: Oral 440 500 Output: Urine 1500 Other: Voiding Method Toilet Bedside Commode # Bowel Movements 2 - Labs CBC & Chem 7: 10/10/17 18:21 10/14/17 08:09 Labs: Abnormal Lab Results - Last 24 Hours (Table) 10/13/17 10/13/17 10/13/17 Range/Units 12:01 17:06 21:19 PT (9.0-12.0) sec INR (<1.2) Sodium (137-145) mmol/L Chloride (98-107) mmol/L Carbon Dioxide (22-30) mmol/L BUN (7-17) mg/dL Creatinine (0.52-1.04) mg/dL POC Glucose (mg/dL) 124 H 234 H 248 H (75-99) mg/dL 18 10/14/17 Range/Units 08:09 08:09 PT 13.7 H (9.0-12.0) sec INR 1.5 H (<1.2) Sodium 146 H (137-145) mmol/L Chloride 116 H (98-107) mmol/L Carbon Dioxide 20 L (22-30) mmol/L BUN 49 H (7-17) mg/dL Creatinine 1.30 H (0.52-1.04) mg/dL POC Glucose (mg/dL) (75-99) mg/dL Assessment and Plan Plan: Assessment: 1. Nonoliguric acute kidney injury secondary to ATN secondary to intravascular volume depletion from diarrhea and vomiting and further worsened with the use of diuretics and Gibson inhibitor. Creatinine peaked at 3.87 this admission and is 1.3 today. Creatinine in August 2017 was in the range of 1.5-1.7 which is likely her baseline. Recent urinalysis was benign. No evidence of urinary retention. No evidence of hydronephrosis noted on renal ultrasound. 2. Chronic kidney disease stage III with baseline creatinine in the range of 1.5-1.7 secondary to cardiorenal syndrome. 3. Diastolic CHF with moderate pulmonary hypertension. 4. Insulin-dependent diabetes mellitus. 5. Vomiting and diarrhea related to viral gastroenteritis. Improved. C. diff negative. 6. Metabolic acidosis secondary to acute kidney injury and diarrhea. Improved. 7. Mild hyponatremia. Expect improvement with improving water intake. Plan: Hep-Lock IV fluids. Can likely resume diuretics tomorrow with Lasix 60 mg once daily. Maintain oral sodium bicarbonate 650 mg twice daily. Repeat electrolytes in the morning. I have advised her to follow low-salt diet and 50-60 ounces fluid restriction upon discharge. She is to monitor her weight closely. She will need to follow- up as an outpatient in the next 1-2 weeks.
[2017-10-14 11:25] LABS: Glucose,Whole Blood 178 mg/dL (75-99)
[2017-10-14] MEDS ORDERED: FUROSEMIDE 20 MG TAB PO STA (14:00)
[2017-10-14 15:08] VITALS: BP 132/72; PULSE 60; TEMP 96.9
--- NOTE | 2017-10-14 21:24 | DS ---
DISCHARGE SUMMARY DATE OF ADMISSION: October 10, 2017. DATE OF DISCHARGE: October 14, 2017. FINAL DIAGNOSES: 1. Acute renal failure prerenal from severe gastroenteritis, present on admission. 2. Acute severe gastroenteritis, present on admission, likely viral. 3. Chronic congestive heart failure from diastolic dysfunction. EF 60%. 4. Chronic cor pulmonale secondary to pulmonary hypertension. 5. Paroxysmal atrial fibrillation chronically on Coumadin, currently in sinus rhythm. 6. Hypothyroidism. 7. Obstructive sleep apnea does not use CPAP. 8. Morbid obesity BMI greater than 40. 9. Hyperlipidemia. 10.Diabetes mellitus type 2, chronically on insulin. 11.Chronic hypoxic respiratory failure on 3 L oxygen at home. 12.Secondary pulmonary hypertension, moderate to severe secondary to chronic obstructive pulmonary disease. 13.Chronic kidney stage IIIB, from hypertensive nephrosclerosis. 14.Acute metabolic encephalopathy from acute renal failure, improved. HOSPITAL COURSE: This patient is a very pleasant patient presented with lethargic, tired, run down. Creatinine had gone up to 3.87. With hydration, did come down to 1.30 by the time of discharge. The patient is back to her baseline. Tolerating a diet. EXAM: Lungs decreased breath sounds. Patient psych AO x3, comfortable. CONSULTATION: Dr. Harrison from nephrology. DISCHARGE MEDICATIONS: 1. Iron 325 p.o. b.i.d. 2. Zantac 150 mg p.o. b.i.d. 3. Lipitor 40 mg q.h.s. 4. Lopressor 50 mg p.o. b.i.d. 5. Symbicort 160/4.5, 1 puff b.i.d. 6. Apidra 8 units subcu t.i.d. 7. Ventolin HFA 2 puffs q.6 hours. 8. DuoNeb t.i.d. p.r.n. 9. Cordarone 100 mg a day. 10.Synthroid 100 mcg p.o. daily. 11.Claritin 10 mg p.o. daily. 12.Lantus 55 units subcu q.h.s. 13.Mycostatin powder topical t.i.d. 14.Coumadin 5 mg on Sunday, Sunday, Sunday, Sunday, , Sunday and 7.5 on Fridays. 15.Lasix 60 mg p.o. daily. FOLLOWUP: Follow up with Dr. Quan in 3 days. The patient to continue with her home oxygen. BMP to be drawn in [address] Quan. MMJUAN J / JUMAN: [id number] /
[2017-10-15 10:40] LABS: Hemoglobin A1C 10.3 % (4.0-6.0)
== END 2017-10-14 15:51 | disposition home or self-care (01) | DRG 682 ==
LOC: EC 18:02 → 4MS4W 19:17
PROVIDERS: ADMIT Hospitalist; ATTEND Hospitalist
DX: N17.0 Acute kidney failure with tubular necrosis (principal); G93.41 Metabolic encephalopathy; E87.1 Hypo-osmolality and hyponatremia; E87.2 Acidosis; I13.0 Hypertensive heart and chronic kidney disease with heart failure and stage 1 through stage 4 chronic kidney disease, or unspecified chronic kidney disease; I50.32 Chronic diastolic (congestive) heart failure; J96.11 Chronic respiratory failure with hypoxia; I42.9 Cardiomyopathy, unspecified; Z68.43 Body mass index [BMI] 50.0-59.9, adult; E03.9 Hypothyroidism, unspecified; E66.01 Morbid (severe) obesity due to excess calories; E78.5 Hyperlipidemia, unspecified; E86.0 Dehydration; G47.33 Obstructive sleep apnea (adult) (pediatric); I48.0 Paroxysmal atrial fibrillation; N18.3 Chronic kidney disease, stage 3 (moderate); E11.22 Type 2 diabetes mellitus with diabetic chronic kidney disease; I27.81 Cor pulmonale (chronic); I27.29 Other secondary pulmonary hypertension; J44.9 Chronic obstructive pulmonary disease, unspecified; A08.4 Viral intestinal infection, unspecified; I35.0 Nonrheumatic aortic (valve) stenosis; I25.10 Atherosclerotic heart disease of native coronary artery without angina pectoris; Z99.81 Dependence on supplemental oxygen; Z79.01 Long term (current) use of anticoagulants; Z79.4 Long term (current) use of insulin; Z79.51 Long term (current) use of inhaled steroids; Z79.899 Other long term (current) drug therapy; Z80.1 Family history of malignant neoplasm of trachea, bronchus and lung; Z79.890 Hormone replacement therapy
CPT/HCPCS: 36415; 71045; 76770; 80048; 80053; 82550; 82553; 83036; 83690; 83735; 84484; 85025; 85379; 85610; 85730; 87324; 93005; 94640; 94760; 96361; 96374; 96375; 99285

== ENCOUNTER 2018-02-27 18:23 | Emergency (ER) | payer MEDICARE, OTHER ==
[2018-02-27 18:27] VITALS: BP 157/81; PULSE 62; RESP 20; TEMP 97.7
[2018-02-27] MEDS ORDERED: HYDROcodone/APAP 7.5-325MG 1 EACH TAB PO ONE (18:40)
--- NOTE | 2018-02-27 18:53 | ED ---
ENT HPI - General Chief complaint: ENT Stated complaint: EAR PAIN Time Seen by Provider: 02/27/18 18:25 Source: patient Mode of arrival: wheelchair Limitations: no limitations - History of Present Illness Initial comments: 67-year-old female past medical history of atrial fibrillation, hypertension, hyperlipidemia, congestive heart failure, insulin-dependent type 2 diabetes presenting today for chief complaint of right ear pain patient states that the right ear pain began this morning, she states that increases with movement of her jaw or palpation external ear. Pt describes it as. Remainder of ROS negative patient denies any rashes, drainage from the ear, fever, chills, night sweats, hearing loss, ringing of the ear, headache, visual changes, diplopia, chest pain, shortness of breath, dyspnea on exertion, neck pain, dizziness, confusion. Remainder of ROS (-). Pt appears well upon arrival. - Related Data Home Medications Medication Instructions Recorded Confirmed Ferrous Sulfate [Feosol] 325 mg PO BID 07/14/14 10/10/17 Ranitidine HCl 150 mg PO BID 07/14/14 10/10/17 Atorvastatin [Lipitor] 40 mg PO HS 09/28/15 10/10/17 Budesonide/Formoterol Fumarate 1 puff INHALATION RT-BID 04/02/16 10/10/17 [Symbicort 160-4.5 Mcg Inhaler] Insulin Glulisine [Apidra Solostar] 8 unit SQ TID-W/MEALS 04/02/16 10/10/17 Albuterol Inhaler [Ventolin Hfa 2 puff INHALATION RT-Q6H PRN 11/13/16 10/10/17 Inhaler] Ipratropium-Albuterol Nebulize 3 ml INHALATION RT-TID PRN 01/13/17 10/10/17 [Duoneb 0.5 mg-3 mg/3 ml Soln] Amiodarone [Cordarone] 100 mg PO DAILY 02/16/17 10/10/17 Levothyroxine Sodium [Synthroid] 100 mcg PO DAILY 02/16/17 10/10/17 Loratadine [Claritin] 10 mg PO DAILY 05/03/17 10/10/17 Insulin Glargine [Lantus] 55 unit SQ HS 07/15/17 10/10/17 Nystatin 100,000 Unit/gm Powd 1 applic TOPICAL TID 07/15/17 10/10/17 [Mycostatin Powder] Warfarin [Coumadin] 5 mg PO SUMOTUWETHSA 10/10/17 10/10/17 Warfarin [Coumadin] 7.5 mg PO FR 10/10/17 10/10/17 Previous Rx's Medication Instructions Recorded Metoprolol Tartrate [Lopressor] 50 mg PO BID #60 tab 10/08/15 Furosemide [Lasix] 60 mg PO DAILY #0 10/14/17 Amoxicillin 500 mg PO Q8H 7 Days #21 capsule 02/27/18 valACYclovir HCL [Valacyclovir] 1,000 mg PO TID 7 Days #21 tab 02/27/18 Allergies Allergy/AdvReac Type Severity Reaction Status Date / Time No Known Allergies Allergy Verified 02/27/18 18:27 Review of Systems ROS Statement: Those systems with pertinent positive or pertinent negative responses have been documented in the HPI. ROS Other: All systems not noted in ROS Statement are negative. Constitutional: Denies: fever, chills, night sweats ENT: Reports: ear pain. Denies: throat pain, hearing loss Respiratory: Denies: cough, dyspnea, wheezes, hemoptysis, stridor Cardiovascular: Denies: chest pain, palpitations, dyspnea on exertion, orthopnea Endocrine: Denies: fatigue Gastrointestinal: Denies: abdominal pain, nausea, vomiting, diarrhea, constipation Genitourinary: Denies: urgency, dysuria Skin: Denies: rash, lesions Neurological: Denies: headache, weakness, numbness, paresthesias, confusion Past Medical History Past Medical History: Atrial Fibrillation, Asthma, Coronary Artery Disease (CAD) , Chest Pain / Angina, Heart Failure, Diabetes Mellitus, Hyperlipidemia, Hypertension, Thyroid Disorder Additional Past Medical History / Comment(s): Severe obstructive sleep apnea- does not tolerate CPAP-wears O2 at 3L/NC at hs, pulmonary htn, morbid obesity, history of cellulitis right lower extremity-healed, hypothyroidism. She also has aortic valve stenosis with a potential of bicuspid versus tricuspid aortic valve and a previous ejection fraction of 45%, lower extremity edema History of Any Multi-Drug Resistant Organisms: None Reported Past Surgical History: Appendectomy, Cholecystectomy, Heart Catheterization, Hernia Repair Additional Past Surgical History / Comment(s): 11/03/15 TIMOTHY with cardioversion, cardiac cath, ROSANGELA CATARACTS Past Anesthesia/Blood Transfusion Reactions: No Reported Reaction Past Psychological History: No Psychological Hx Reported Smoking Status: Never smoker Past Alcohol Use History: None Reported Past Drug Use History: None Reported - Past Family History Mother Family Medical History: Cancer Additional Family Medical History / Comment(s): SKIN AND LUNG CANCER "MESOTHELIOMA" Father Family Medical History: CVA/TIA General Exam - General Exam Comments Initial Comments: General: The patient is awake and alert, in no distress, and does not appear acutely ill. Eye: Pupils are equal, round and reactive to light, extra-ocular movements are intact. No nystagmus. There is normal conjunctiva bilaterally. No signs of icterus. Ears, nose, mouth and throat: There are moist mucous membranes and no oral lesions. Oropharynx is nonerythematous. There is no tonsillar enlargement or exudates. There is effusion of the right tympanic membrane, mild erythema of the right EAC no noted vesicular lesions are crusting. Patient is tender to insertion of the otoscope. Hearing intact to whisper and finger rub testing. Equally bilaterally. Tympanic membrane on the left ear is within normal limits , tympanic membranes pearly, cone of light and malleus present there is no retractions bulging or effusions. External auditory canal within normal limits. No lesions in the tip the nose, within the scalp or of the posterior ear. Neck: The neck is supple, there is no tenderness or JVD. Cardiovascular: There is a regular rate and rhythm. No murmur, rub or gallop is appreciated. Respiratory: Lungs are clear to auscultation, respirations are non-labored, breath sounds are equal. No wheezes, stridor, rales, or rhonchi. Musculoskeletal: Normal ROM, no tenderness. Strength 5/5. Sensation intact. Pulses equal bilaterally 2+. Neurological: A&O x 3. CN II-XII intact, There are no obvious motor or sensory deficits. Coordination appears grossly intact. Speech is normal. Skin: Skin is warm and dry and no rashes or lesions are noted. Psychiatric: Cooperative, appropriate mood & affect, normal judgment. Limitations: no limitations Course Vital Signs 02/27/18 18:26 Temperature 97.7 F Pulse Rate 62 Respiratory 20 Rate Blood Pressure 157/81 O2 Sat by Pulse 98 Oximetry Medical Decision Making - Medical Decision Making Patient's pain appears reproducible with palpation appears to be along the V3 dermatome distribution. Patient admits to pain when inserting the otoscope for examination. Upon examination of the tympanic membrane of the right ear, there appears to be an effusion, there is no tympanic membrane perforation or retraction at this time. Patient has acute otitis media, there are no lesions in a dermatomal pattern however patient's pain to sedation is concerning for possible underlying herpes zoster infection. Patient will be started on valacyclovir 1,000mg 3 times daily 7 days. In addition patient was given amoxicillin 3 times a day 500 mg for treatment of right-sided ear effusion. Remainder of the external auditory canal within normal limits of the ears bilaterally, there is no signs of malignant externa. There are no hearing deficits, as the nose no visual changes, no nerve palsies. Patient denies any other associated symptoms. Case discussed in detail with Dr. Briceno who agrees with impression and plan. At this time feel patient is safe for discharge with primary care follow-up. Patient was given a starter pack of Tylenol 3 for pain mgmt she denies use of any opioids at home, the risk of overdose was discussed at length with patient as well as the risk of addiction. Patient verbalizes understanding. Return parameters discussed in detail, patient verbalizes understanding. Denies questions at this time. Disposition Clinical Impression: Right otitis media Disposition: HOME SELF-CARE Condition: Good Instructions: Ear Infection (ED) Additional Instructions: Please use medication as discussed. Please follow-up with family doctor in the next 2 days. Please return to emergency room if the symptoms increase or worsen or for any other concerns. Prescriptions: Amoxicillin 500 mg PO Q8H 7 Days #21 capsule valACYclovir HCL [Valacyclovir] 1,000 mg PO TID 7 Days #21 tab Is patient prescribed a controlled substance at d/c from ED?: No Referrals: Dontae Quan DO [Primary Care Provider] - 1-2 days Time of Disposition: 18:59
[2018-02-27] MEDS ORDERED: ACET/COD 300 MG/30 MG STARTER PACK 6 TAB BTL PO STA (19:00)
== END 2018-02-27 19:10 | disposition home or self-care (01) ==
LOC: EC 18:23
DX: H65.191 Other acute nonsuppurative otitis media, right ear (principal); I48.91 Unspecified atrial fibrillation; J45.909 Unspecified asthma, uncomplicated; E78.5 Hyperlipidemia, unspecified; E03.9 Hypothyroidism, unspecified; Z90.49 Acquired absence of other specified parts of digestive tract; Z98.890 Other specified postprocedural states; Z79.01 Long term (current) use of anticoagulants; Z79.4 Long term (current) use of insulin; Z79.51 Long term (current) use of inhaled steroids; Z79.899 Other long term (current) drug therapy
CPT/HCPCS: 99283

== ENCOUNTER 2018-05-21 14:29 | Inpatient (IN) | payer MEDICARE, OTHER ==
[2018-05-21] MEDS ORDERED: SODIUM CHLORIDE 0.9% 1,000 ML IV STA (14:37)
[2018-05-21 15:23] LABS: ALT 28 U/L (9-52); AST 31 U/L (14-36); Albumin 4.1 g/dL (3.5-5.0); Alkaline Phosphatase 203 U/L (38-126); Amylase 37 U/L (30-110); Anion Gap 18 mmol/L; Blood Urea Nitrogen 81 mg/dL (7-17); Calcium 9.2 mg/dL (8.4-10.2); Carbon Dioxide 22 mmol/L (22-30); Chloride 96 mmol/L (98-107); Lipase 108 U/L (23-300); Potassium 5.3 mmol/L (3.5-5.1); Sodium 136 mmol/L (137-145); Total Bilirubin 0.9 mg/dL (0.2-1.3); Total Protein 7.4 g/dL (6.3-8.2)
[2018-05-21 15:26] LABS: Basophils % (A) 0 %; Eosinophils % (A) 0 %; HCT 51.8 % (34.0-46.0); HGB 16.1 gm/dL (11.4-16.0); Hypochromasia Slight; Lymphocytes # (A) 0.3 k/uL (1.0-4.8); Lymphocytes % (A) 2 %; MCH 28.5 pg (25.0-35.0); MCHC 31.1 g/dL (31.0-37.0); MCV 91.6 fL (80.0-100.0); Mean Platelet Volume 7.8; Monocytes # (A) 0.5 k/uL (0-1.0); Monocytes % (A) 4 %; Neutrophils % (A) 93 %; Platelet Count 225 k/uL (150-450); RBC 5.65 m/uL (3.80-5.40); RDW 15.1 % (11.5-15.5)
--- NOTE | 2018-05-21 15:34 | ED ---
Abdominal Pain HPI - General Chief Complaint: Abdominal Pain Stated Complaint: Diarrhea/vomiting Time Seen by Provider: 05/21/18 14:35 Source: patient, EMS, RN notes reviewed Mode of arrival: EMS Limitations: no limitations - History of Present Illness Initial Comments: 67-year-old female resents to the emergency department via EMS for nausea vomiting and diarrhea. Patient states she just does not feel well. Patient states that she's had elevated blood sugar. Patient denies chest pain, shortness of breath. Patient dizziness, fever, chills, dysuria, hematuria. Patient denies any taken any insulin today. Patient states her blood sugars normally in the 200s. Patient denies any sick contacts. Patient denies any sharp localized abdominal pain. - Related Data Home Medications Medication Instructions Recorded Confirmed Ferrous Sulfate [Feosol] 325 mg PO BID 07/14/14 05/21/18 Ranitidine HCl 150 mg PO BID 07/14/14 05/21/18 Atorvastatin [Lipitor] 40 mg PO HS 09/28/15 05/21/18 Budesonide/Formoterol Fumarate 1 puff INHALATION RT-BID 04/02/16 05/21/18 [Symbicort 160-4.5 Mcg Inhaler] Insulin Glulisine [Apidra Solostar] 12 unit SQ AC-TID 04/02/16 05/21/18 Albuterol Inhaler [Ventolin Hfa 2 puff INHALATION RT-Q6H PRN 11/13/16 05/21/18 Inhaler] Ipratropium-Albuterol Nebulize 3 ml INHALATION RT-TID PRN 01/13/17 05/21/18 [Duoneb 0.5 mg-3 mg/3 ml Soln] Amiodarone [Cordarone] 100 mg PO DAILY 02/16/17 05/21/18 Levothyroxine Sodium [Synthroid] 100 mcg PO DAILY 02/16/17 05/21/18 Loratadine [Claritin] 10 mg PO DAILY 05/03/17 05/21/18 Insulin Glargine [Lantus] 75 unit SQ HS 07/15/17 05/21/18 Nystatin 100,000 Unit/gm Powd 1 applic TOPICAL TID 07/15/17 05/21/18 [Mycostatin Powder] Warfarin [Coumadin] 5 mg PO SUMOTUTHFR 10/10/17 05/21/18 Warfarin [Coumadin] 2.5 mg PO WESA 05/21/18 05/21/18 Previous Rx's Medication Instructions Recorded Metoprolol Tartrate [Lopressor] 50 mg PO BID #60 tab 10/08/15 Furosemide [Lasix] 60 mg PO DAILY #0 10/14/17 Allergies Allergy/AdvReac Type Severity Reaction Status Date / Time No Known Allergies Allergy Verified 05/21/18 14:51 Review of Systems ROS Statement: Those systems with pertinent positive or pertinent negative responses have been documented in the HPI. ROS Other: All systems not noted in ROS Statement are negative. Past Medical History Past Medical History: Atrial Fibrillation, Asthma, Coronary Artery Disease (CAD) , Chest Pain / Angina, Heart Failure, Diabetes Mellitus, Hyperlipidemia, Hypertension, Thyroid Disorder Additional Past Medical History / Comment(s): Severe obstructive sleep apnea- does not tolerate CPAP-wears O2 at 3L/NC at hs, pulmonary htn, morbid obesity, history of cellulitis right lower extremity-healed, hypothyroidism. She also has aortic valve stenosis with a potential of bicuspid versus tricuspid aortic valve and a previous ejection fraction of 45%, lower extremity edema History of Any Multi-Drug Resistant Organisms: None Reported Past Surgical History: Appendectomy, Cholecystectomy, Heart Catheterization, Hernia Repair Additional Past Surgical History / Comment(s): 11/03/15 TIMOTHY with cardioversion, cardiac cath, ROSANGELA CATARACTS Past Anesthesia/Blood Transfusion Reactions: No Reported Reaction Past Psychological History: No Psychological Hx Reported Smoking Status: Never smoker Past Alcohol Use History: None Reported Past Drug Use History: None Reported - Past Family History Mother Family Medical History: Cancer Additional Family Medical History / Comment(s): SKIN AND LUNG CANCER "MESOTHELIOMA" Father Family Medical History: CVA/TIA General Exam Limitations: no limitations General appearance: alert, in no apparent distress Head exam: Present: atraumatic, normocephalic, normal inspection Eye exam: Present: normal appearance, PERRL, EOMI. Absent: scleral icterus, conjunctival injection, periorbital swelling Neck exam: Present: normal inspection, full ROM. Absent: tenderness, meningismus, lymphadenopathy Respiratory exam: Present: normal lung sounds bilaterally. Absent: respiratory distress, wheezes, rales, rhonchi, stridor Cardiovascular Exam: Present: regular rate, normal rhythm, normal heart sounds. Absent: systolic murmur, diastolic murmur, rubs, gallop, clicks GI/Abdominal exam: Present: soft, tenderness (Mild diffuse), normal bowel sounds. Absent: distended, guarding, rebound, rigid Back exam: Absent: CVA tenderness (R), CVA tenderness (L) Neurological exam: Present: alert, oriented X3, CN II-XII intact Skin exam: Present: warm, dry, intact, normal color. Absent: rash Course Vital Signs 05/21/18 05/21/18 14:33 16:01 Temperature 98.7 F Pulse Rate 75 81 Respiratory 18 18 Rate Blood Pressure 151/90 120/65 O2 Sat by Pulse 96 95 Oximetry Medical Decision Making - Medical Decision Making 67-year-old female presented for nausea vomiting or diarrhea. Patient's found to be hyperglycemic not in DKA. Patient is hydrated. Patient does have acute renal injury. Patient will be admitted for IV hydration, glucose control. - Lab Data Result diagrams: 05/21/18 14:47 05/21/18 14:47 Lab Results 05/21/18 05/21/18 Range/Units 14:47 14:47 WBC 13.0 H (3.8-10.6) k/uL RBC 5.65 H (3.80-5.40) m/uL Hgb 16.1 H (11.4-16.0) gm/dL Hct 51.8 H (34.0-46.0) % MCV 91.6 (80.0-100.0) fL MCH 28.5 (25.0-35.0) pg MCHC 31.1 (31.0-37.0) g/dL RDW 15.1 (11.5-15.5) % Plt Count 225 (150-450) k/uL Neutrophils % 93 % Lymphocytes % 2 % Monocytes % 4 % Eosinophils % 0 % Basophils % 0 % Neutrophils # 12.0 H (1.3-7.7) k/uL Lymphocytes # 0.3 L (1.0-4.8) k/uL Monocytes # 0.5 (0-1.0) k/uL Eosinophils # 0.0 (0-0.7) k/uL Basophils # 0.0 (0-0.2) k/uL Hypochromasia Slight Sodium 136 L (137-145) mmol/L Potassium 5.3 H (3.5-5.1) mmol/L Chloride 96 L (98-107) mmol/L Carbon Dioxide 22 (22-30) mmol/L Anion Gap 18 mmol/L BUN 81 H (7-17) mg/dL Creatinine 2.38 H (0.52-1.04) mg/dL Est GFR (CKD-EPI)AfAm 24 (>60 ml/min/1.73 sqM) Est GFR (CKD-EPI)NonAf 21 (>60 ml/min/1.73 sqM) Glucose 572 H* (74-99) mg/dL Calcium 9.2 (8.4-10.2) mg/dL Total Bilirubin 0.9 (0.2-1.3) mg/dL AST 31 (14-36) U/L ALT 28 (9-52) U/L Alkaline Phosphatase 203 H (38-126) U/L Total Protein 7.4 (6.3-8.2) g/dL Albumin 4.1 (3.5-5.0) g/dL Amylase 37 (30-110) U/L Lipase 108 (23-300) U/L Acetone, Qual Negative (Negative) Disposition Clinical Impression: Nausea & vomiting, Acute kidney injury, Dehydration, Hyperglycemia Disposition: ADMITTED IP TO THIS [facility] Condition: Fair Referrals: Dontae Quan DO [Primary Care Provider] - 1-2 days
[2018-05-21 15:35] LABS: Glucose 572 mg/dL (74-99)
[2018-05-21] MEDS ORDERED: ONDANSETRON 4 MG/2 ML VIAL IVP STA (15:44)
[2018-05-21] MEDS ORDERED: INSULIN REGULAR 100 UNIT/ML VIAL IV ONE (15:44)
[2018-05-21] MEDS ORDERED: SODIUM CHLORIDE 0.9% 1,000 ML IV ONE (15:53)
[2018-05-21] MEDS ORDERED: NALOXONE 0.4 MG/ML 1 ML VIAL IV PRN (16:17)
[2018-05-21] MEDS ORDERED: ACETAMINOPHEN TAB 325 MG TAB PO PRN (16:17)
[2018-05-21] MEDS ORDERED: SODIUM CHLORIDE 0.9% 1,000 ML IV SCH (16:30)
[2018-05-21] MEDS ORDERED: DIPHENOX-ATROP 2.5-0.025 MG 1 EACH TAB PO PRN (16:44)
[2018-05-21] MEDS ORDERED: Potassium Replacement Protocol 1 EACH MISC MISCELLANE PRN (16:44)
[2018-05-21 16:57] LABS: Glucose,Whole Blood 509 mg/dL (75-99)
[2018-05-21 17:24] LABS: Appearance,Urine Cloudy (Clear); Bacteria,Urine Moderate /hpf; Bilirubin,Urine Negative (Negative); Blood,Urine Negative (Negative); Color,Urine Yellow; Glucose,Urine (UA) 3+ (Negative); Hyaline Casts,Urine 21 /lpf (0-2); Ketones,Urine Negative (Negative); Leukocyte Esterase,Urine Moderate (Negative); Mucus,Urine Rare /hpf; Nitrite,Urine Negative (Negative); Protein,Urine Trace (Negative); RBC,Urine 1 /hpf (0-5); Specific Gravity,Urine 1.014 (1.001-1.035); Squamous Epithelial Cell,Urine 5 /hpf (0-4); Urobilinogen,Urine <2.0 mg/dL (<2.0); WBC,Urine 2 /hpf (0-5)
[2018-05-21] MEDS: INSULIN ASPART 100 UNIT/ML 1 ML 10 ML VIAL SQ SCH ×2 (18:32→22:49)
[2018-05-21] MEDS ORDERED: IPRATROPIUM-ALBUTEROL 3 ML NEB INHALATION PRN (20:39)
[2018-05-21] MEDS ORDERED: ALBUTEROL NEBULIZED 2.5 MG/3 ML INHALATION PRN (20:39)
[2018-05-21 20:57] LABS: Prothrombin Time 19.6 sec (9.0-12.0)
[2018-05-21 21:30] LABS: Glucose,Whole Blood 361 mg/dL (75-99)
[2018-05-21] MEDS ORDERED: WARFARIN 5 MG TAB PO SCH (21:30)
--- NOTE | 2018-05-21 21:35 | XR ---
EXAMINATION TYPE: XR abdomen acute w cxr, total 5 views DATE OF EXAM: 05/21/2018 COMPARISON: NONE HISTORY: Nausea, vomiting and diarrhea TECHNIQUE: Supine, upright, and left side down lateral decubitus views of the abdomen are obtained. FINDINGS: PA CHEST: There is moderate marked enlargement of the cardiac silhouette. The overlying soft tissues are promin ent. Given this factor, the lungs appear to be clear. Pleural spaces are negative. No acute bone or s oft tissue chest findings. ABDOMEN AND PELVIS: The stomach is nearly completely fluid-filled. There is no evidence for pneumoperitoneum or pneumatosis. The bowel gas pattern is remarkable for parallel arrangement loops of mildly dilated small bowel acro ss the mid abdomen. Gas can be seen within a nondilated colon. IMPRESSION: FINDINGS CONSISTENT WITH PARTIAL SMALL BOWEL OBSTRUCTION.
[2018-05-21] MEDS: METOPROLOL TARTRATE 50 MG TAB PO SCH (21:45)
[2018-05-21] MEDS: FAMOTIDINE 20 MG TAB PO SCH (21:45)
[2018-05-21] MEDS: ATORVASTATIN 40 MG TAB PO SCH (21:45)
[2018-05-21] MEDS: INSULIN DETEMIR 100 UNIT/ML 10 ML VIAL SQ SCH (22:50)
[2018-05-21] MEDS: SODIUM CHLORIDE 0.9% 1,000 ML IV SCH (22:50)
[2018-05-21] MEDS: NYSTATIN 100,000 UNIT/GM POWD 15 GM TOPICAL SCH (22:50)
[2018-05-22] MEDS: ONDANSETRON 4 MG/2 ML VIAL IVP PRN (00:57)
[2018-05-22] MEDS: LEVOTHYROXINE 100 MCG TAB PO SCH ×2 (06:34→08:48)
[2018-05-22] MEDS: SYMBICORT 160-4.5 MCG INHALER INHALATION SCH ×2 (08:15→20:53)
[2018-05-22 08:23] LABS: Glucose,Whole Blood 185 mg/dL (75-99)
[2018-05-22] MEDS: INSULIN ASPART 100 UNIT/ML 1 ML 10 ML VIAL SQ SCH ×4 (08:47→21:10)
[2018-05-22] MEDS: SODIUM CHLORIDE 0.9% 1,000 ML IV SCH ×2 (08:48→21:27)
[2018-05-22] MEDS: AMIODARONE 100 MG TAB PO SCH (08:48)
[2018-05-22] MEDS: FAMOTIDINE 20 MG TAB PO SCH (08:48)
[2018-05-22] MEDS: METOPROLOL TARTRATE 50 MG TAB PO SCH ×2 (08:48→21:28)
[2018-05-22] MEDS: NYSTATIN 100,000 UNIT/GM POWD 15 GM TOPICAL SCH ×3 (08:49→21:29)
[2018-05-22] MEDS: IOPAMIDOL-300 CONTRAST 30 ML VIAL (ORAL USE) PO PRN ×2 (09:48→10:44)
[2018-05-22 10:38] LABS: HCT 46.9 % (34.0-46.0); MCH 28.7 pg (25.0-35.0); MCHC 32.1 g/dL (31.0-37.0); MCV 89.6 fL (80.0-100.0); Mean Platelet Volume 8.3; Platelet Count 212 k/uL (150-450); RBC 5.23 m/uL (3.80-5.40); RDW 15.4 % (11.5-15.5); WBC 10.1 k/uL (3.8-10.6)
[2018-05-22 10:46] LABS: INR 2.2 (<1.2); Prothrombin Time 21.2 sec (9.0-12.0)
[2018-05-22 10:50] LABS: Band Neutrophils % 21 %; Lymphocytes # (M) 1.11 k/uL (1.0-4.8); Monocytes # (M) 0.71 k/uL (0-1.0); Neutrophils % (M) 61 %; Nucleated Red Blood Cells 0 /100 WBC (0-0)
[2018-05-22 10:53] LABS: Metamyelocytes % 1 %; Total Cells Counted 200
[2018-05-22 10:55] LABS: Polychromasia Present
[2018-05-22 11:02] VITALS: BMI 52.9
--- NOTE | 2018-05-22 11:30 | P.GSCN ---
History of Present Illness Consult date: 05/22/18 Reason for Consult: brown foul smelling emesis Requesting physician: Jason Mancuso History of present illness: CHIEF COMPLAINT: brown foul smelling emesis HISTORY OF PRESENT ILLNESS: 67-year-old female who presented to the hospital with a two day history of nausea and vomiting. She also reports having a 1 day history of loose stools. Apparently, the patient had an episode of emesis last night that was brown in color and was foul smelling. This morning, the patient denies abdominal pain. She denies nausea or vomiting. She is having BMs. Passing flatus. WBC 10.1. PAST MEDICAL HISTORY: See list. PAST SURGICAL HISTORY: See list. MEDICATIONS: See list. ALLERGIES: See list. SOCIAL HISTORY: No illicit drug use. REVIEW OF SYSTEMS: CONSTITUTIONAL: Denies fever or chills. HEENT: Denies blurred vision, vision changes, or eye pain. Denies hemoptysis ENDOCRINE: Denies heat or cold intolerance. CARDIOVASCULAR: Denies chest pain or pressure. RESPIRATORY: No shortness of breath. GASTROINTESTINAL: Reports nausea, vomiting, and loose stools prior to hospitalization. Currently denies N/V/D. NEURO: Denies history of seizures. PSYCH: No depression or suicidal ideation HEMATOLOGIC: Denies bleeding disorders. LYMPHATIC: The patient denies any lumps and bumps around the neck. GENITOURINARY: Denies any blood in urine or increased urinary frequency. MUSCULOSKELETAL: Denies myalgias. Denies joint swelling. Denies decreased range of motion beyond patients baseline. SKIN: Denies pruitis. Denies rash. PHYSICAL EXAM: VITAL SIGNS: Currently stable. GENERAL: Well-developed in no acute distress. HEENT: No sclera icterus. Extraocular movements grossly intact. Moist buccal mucosa. Head is atraumatic, normocephalic. Hears conversational speech. No nasal drainage. NECK: Supple without lymphadenopathy. CHEST: Non-labored respirations and equal bilateral excursions. CARDIOVASCULAR: Regular rate with regular rhythm. Palpable 2+ radial pulses. ABDOMEN: Obese. Soft. Nondistended. No pain or tenderness noted upon palpation. Positive bowel sounds 4 quadrants. MUSCULOSKELETAL: No clubbing, cyanosis or edema. NEUROLOGIC: No focal or lateralizing signs. Cranial nerves II through XII grossly intact. PSYCH: Appropriate affect. Alert and oriented to person, place and time. SKIN: Well perfused. Good skin turgor. IMAGING: Per radiologist dictation: 1. Acute abdominal series: Stomach is nearly completely fluid-filled. Mildly dilated small bowel across midabdomen. Gas can be seen within a non-dilated colon. Findings consistent with partial small bowel obstruction. ASSESSMENT: 1. Partial small bowel obstruction, appears to be resolving 2. Nausea, vomiting, and loose stools 3. History of appendectomy and cholecystectomy PLAN: 1. Obtain CT abdomen/pelvis with oral contrast only 2. Patient may begin clear liquids as tolerated Nurse practitioner note has been reviewed by physician. Signing provider agrees with the documented findings, assessment, and plan of care. Past Medical History Past Medical History: Atrial Fibrillation, Asthma, Coronary Artery Disease (CAD) , Chest Pain / Angina, Heart Failure, Diabetes Mellitus, Hyperlipidemia, Hypertension, Thyroid Disorder Additional Past Medical History / Comment(s): Severe obstructive sleep apnea- does not tolerate CPAP-wears O2 at 3L/NC at hs, pulmonary htn, morbid obesity, history of cellulitis right lower extremity-healed, hypothyroidism. She also has aortic valve stenosis with a potential of bicuspid versus tricuspid aortic valve and a previous ejection fraction of 45%, lower extremity edema History of Any Multi-Drug Resistant Organisms: None Reported Past Surgical History: Appendectomy, Cholecystectomy, Heart Catheterization, Hernia Repair Additional Past Surgical History / Comment(s): 11/03/15 TIMOTHY with cardioversion, cardiac cath, ROSANGELA CATARACTS Past Anesthesia/Blood Transfusion Reactions: No Reported Reaction Past Psychological History: No Psychological Hx Reported Additional Psychological History / Comment(s): PT LIVES AT [facility] IN [place],USES A WALKER WHEN OUTSIDE OF HER APT. PT DOES NOT HAVE A SCALE. Pt does not drive. She gets to [place] by daughter taking or using [employer] bus. She cooks and manages her own medication. She has home O2 and a glucose monitor. Smoking Status: Never smoker Past Alcohol Use History: None Reported Additional Past Alcohol Use History / Comment(s): SECOND HAND SMOKE EXPOSURE ALL HER LIFE Past Drug Use History: None Reported - Past Family History Mother Family Medical History: Cancer Additional Family Medical History / Comment(s): SKIN AND LUNG CANCER "MESOTHELIOMA" Father Family Medical History: CVA/TIA Medications and Allergies Home Medications Medication Instructions Recorded Confirmed Type Ferrous Sulfate [Feosol] 325 mg PO BID 07/14/14 05/21/18 History Ranitidine HCl 150 mg PO BID 07/14/14 05/21/18 History Atorvastatin [Lipitor] 40 mg PO HS 09/28/15 05/21/18 History Metoprolol Tartrate [Lopressor] 50 mg PO BID #60 tab 10/08/15 05/21/18 Rx Budesonide/Formoterol Fumarate 1 puff INHALATION RT-BID 04/02/16 05/21/18 History [Symbicort 160-4.5 Mcg Inhaler] Insulin Glulisine [Apidra Solostar] 12 unit SQ AC-TID 04/02/16 05/21/18 History Albuterol Inhaler [Ventolin Hfa 2 puff INHALATION RT-Q6H PRN 11/13/16 05/21/18 History Inhaler] Ipratropium-Albuterol Nebulize 3 ml INHALATION RT-TID PRN 01/13/17 05/21/18 History [Duoneb 0.5 mg-3 mg/3 ml Soln] Amiodarone [Cordarone] 100 mg PO DAILY 02/16/17 05/21/18 History Levothyroxine Sodium [Synthroid] 100 mcg PO DAILY 02/16/17 05/21/18 History Loratadine [Claritin] 10 mg PO DAILY 05/03/17 05/21/18 History Insulin Glargine [Lantus] 75 unit SQ HS 07/15/17 05/21/18 History Nystatin 100,000 Unit/gm Powd 1 applic TOPICAL TID 07/15/17 05/21/18 History [Mycostatin Powder] Warfarin [Coumadin] 5 mg PO SUMOTUTHFR 10/10/17 05/21/18 History Furosemide [Lasix] 60 mg PO DAILY #0 10/14/17 05/21/18 Rx Warfarin [Coumadin] 2.5 mg PO WESA 05/21/18 05/21/18 History Allergies Allergy/AdvReac Type Severity Reaction Status Date / Time No Known Allergies Allergy Verified 05/21/18 14:51 Surgical - Exam Vital Signs Temp Pulse Resp BP Pulse Ox 98.7 F 75 18 151/90 96 05/21/18 14:33 05/21/18 14:33 05/21/18 14:33 05/21/18 14:33 05/21/18 14:33 Results - Labs 05/22/18 09:36 05/21/18 14:47 Abnormal Lab Results - Last 24 Hours (Table) 05/21/18 05/21/18 05/21/18 Range/Units 14:47 14:47 14:47 WBC 13.0 H (3.8-10.6) k/uL RBC 5.65 H (3.80-5.40) m/uL Hgb 16.1 H (11.4-16.0) gm/dL Hct 51.8 H (34.0-46.0) % Neutrophils # 12.0 H (1.3-7.7) k/uL Neutrophils # (Manual) (1.3-7.7) k/uL Lymphocytes # 0.3 L (1.0-4.8) k/uL Metamyelocytes # (Man) (0) k/uL PT 19.6 H (9.0-12.0) sec INR 2.0 H (<1.2) Sodium 136 L (137-145) mmol/L Potassium 5.3 H (3.5-5.1) mmol/L Chloride 96 L (98-107) mmol/L BUN 81 H (7-17) mg/dL Creatinine 2.38 H (0.52-1.04) mg/dL Glucose 572 H* (74-99) mg/dL POC Glucose (mg/dL) (75-99) mg/dL Alkaline Phosphatase 203 H (38-126) U/L Urine Appearance (Clear) Urine Protein (Negative) Urine Glucose (UA) (Negative) Ur Leukocyte Esterase (Negative) Ur Squamous Epith Cells (0-4) /hpf Urine Bacteria (None) /hpf Hyaline Casts (0-2) /lpf Urine Mucus (None) /hpf 05/21/18 05/21/18 05/21/18 Range/Units 16:54 17:14 21:20 WBC (3.8-10.6) k/uL RBC (3.80-5.40) m/uL Hgb (11.4-16.0) gm/dL Hct (34.0-46.0) % Neutrophils # (1.3-7.7) k/uL Neutrophils # (Manual) (1.3-7.7) k/uL Lymphocytes # (1.0-4.8) k/uL Metamyelocytes # (Man) (0) k/uL PT (9.0-12.0) sec INR (<1.2) Sodium (137-145) mmol/L Potassium (3.5-5.1) mmol/L Chloride (98-107) mmol/L BUN (7-17) mg/dL Creatinine (0.52-1.04) mg/dL Glucose (74-99) mg/dL POC Glucose (mg/dL) 509 H 361 H (75-99) mg/dL Alkaline Phosphatase (38-126) U/L Urine Appearance Cloudy H (Clear) Urine Protein Trace H (Negative) Urine Glucose (UA) 3+ H (Negative) Ur Leukocyte Esterase Moderate H (Negative) Ur Squamous Epith Cells 5 H (0-4) /hpf Urine Bacteria Moderate H (None) /hpf Hyaline Casts 21 H (0-2) /lpf Urine Mucus Rare H (None) /hpf 05/22/18 05/22/18 05/22/18 Range/Units 07:51 09:36 09:36 WBC (3.8-10.6) k/uL RBC (3.80-5.40) m/uL Hgb (11.4-16.0) gm/dL Hct 46.9 H (34.0-46.0) % Neutrophils # (1.3-7.7) k/uL Neutrophils # (Manual) 8.20 H (1.3-7.7) k/uL Lymphocytes # (1.0-4.8) k/uL Metamyelocytes # (Man) 0.10 H (0) k/uL PT 21.2 H (9.0-12.0) sec INR 2.2 H (<1.2) Sodium (137-145) mmol/L Potassium (3.5-5.1) mmol/L Chloride (98-107) mmol/L BUN (7-17) mg/dL Creatinine (0.52-1.04) mg/dL Glucose (74-99) mg/dL POC Glucose (mg/dL) 185 H (75-99) mg/dL Alkaline Phosphatase (38-126) U/L Urine Appearance (Clear) Urine Protein (Negative) Urine Glucose (UA) (Negative) Ur Leukocyte Esterase (Negative) Ur Squamous Epith Cells (0-4) /hpf Urine Bacteria (None) /hpf Hyaline Casts (0-2) /lpf Urine Mucus (None) /hpf Diabetes panel 05/21/18 Range/Units 14:47 Sodium 136 L (137-145) mmol/L Potassium 5.3 H (3.5-5.1) mmol/L Chloride 96 L (98-107) mmol/L Carbon Dioxide 22 (22-30) mmol/L BUN 81 H (7-17) mg/dL Creatinine 2.38 H (0.52-1.04) mg/dL Glucose 572 H* (74-99) mg/dL Calcium 9.2 (8.4-10.2) mg/dL AST 31 (14-36) U/L ALT 28 (9-52) U/L Alkaline Phosphatase 203 H (38-126) U/L Total Protein 7.4 (6.3-8.2) g/dL Albumin 4.1 (3.5-5.0) g/dL Calcium panel 05/21/18 Range/Units 14:47 Calcium 9.2 (8.4-10.2) mg/dL Albumin 4.1 (3.5-5.0) g/dL Pituitary panel 05/21/18 Range/Units 14:47 Sodium 136 L (137-145) mmol/L Potassium 5.3 H (3.5-5.1) mmol/L Chloride 96 L (98-107) mmol/L Carbon Dioxide 22 (22-30) mmol/L BUN 81 H (7-17) mg/dL Creatinine 2.38 H (0.52-1.04) mg/dL Glucose 572 H* (74-99) mg/dL Calcium 9.2 (8.4-10.2) mg/dL Adrenal panel 05/21/18 Range/Units 14:47 Sodium 136 L (137-145) mmol/L Potassium 5.3 H (3.5-5.1) mmol/L Chloride 96 L (98-107) mmol/L Carbon Dioxide 22 (22-30) mmol/L BUN 81 H (7-17) mg/dL Creatinine 2.38 H (0.52-1.04) mg/dL Glucose 572 H* (74-99) mg/dL Calcium 9.2 (8.4-10.2) mg/dL Total Bilirubin 0.9 (0.2-1.3) mg/dL AST 31 (14-36) U/L ALT 28 (9-52) U/L Alkaline Phosphatase 203 H (38-126) U/L Total Protein 7.4 (6.3-8.2) g/dL Albumin 4.1 (3.5-5.0) g/dL
[2018-05-22 12:58] LABS: Glucose,Whole Blood 195 mg/dL (75-99)
[2018-05-22 13:51] LABS: Albumin 3.2 g/dL (3.5-5.0); Calcium 7.7 mg/dL (8.4-10.2); Potassium 4.7 mmol/L (3.5-5.1); Total Bilirubin 0.5 mg/dL (0.2-1.3); Total Protein 6.1 g/dL (6.3-8.2)
--- NOTE | 2018-05-22 14:04 | CT ---
"EXAMINATION TYPE: CT abdomen pelvis wo con DATE OF EXAM: 05/22/2018 COMPARISON: Prior CT scan dated 02/16/2017 HISTORY: Generalized abdominal pain, nausea, vomiting, and diarrhea. CT DLP: 1470 mGycm Automated exposure control for dose reduction was used. TECHNIQUE: Helical acquisition of images from the lung bases through the pelvis. Patient received or al contrast only. FINDINGS: Lack of contrast could compromise sensitivity of the exam. LUNG BASES: Some probable dependent atelectatic changes are present bilaterally, there may be scarrin g, no pleural or pericardial effusion. AORTA: Aorta shows atheromatous change but no aneurysm. LIVER/GB: Gallbladder is absent. Liver is not enlarged. PANCREAS: No significant abnormality is seen. SPLEEN: No significant abnormality is seen. ADRENALS: No significant interval change is seen. KIDNEYS: No significant abnormality is seen. REPRODUCTIVE ORGANS: No significant abnormality is seen. URINARY BLADDER: No significant abnormality is seen. BOWEL: There is been interval migration of a loop of small bowel through the anterior abdominal wall at the supraumbilical location. There is some local skin thickening, correlate to exclude cellulitis . No complete obstruction, there is a change in small bowel caliber distal to this herniated bowel, h owever contrast has migrated distal to this level. Small bowel loops show some wall thickening. FREE AIR: No Free Air is visible. ASCITES: None visible. PELVIC ADENOPATHY: None visualized. RETROPERITONEAL ADENOPATHY: No Retroperitoneal Adenopathy visible. OSSEOUS STRUCTURES: Degenerative disc changes are present in the visualized spine.. IMPRESSION: FINDINGS SUGGEST HIGH-GRADE PARTIAL SMALL BOWEL OBSTRUCTION DUE TO SUPRAUMBILICAL HERNIA. DIFFICULT T O EXCLUDE INCARCERATION. NONCONTRAST EXAM. Additional findings above. A [place] level critical message alert has been initiated for Jason Mancuso MD via the [employer] customer insight 36 [phone] | Critical Results System on 05/22/2018 12:13 PM. This message alert has been sent to Jason Mancuso MD via the preferences provided by the clinician for the receipt of Radiology Critical Findings. [place] ssage ID [id number]. A [place] level critical message alert has been initiated for Chalino Vargas MD via the [employer] customer insight [id number] | Critical Results System on 05/22/2018 12:13 PM. This message alert has been sent to Chalino nieves MD via the preferences provided by the clinician for the receipt of Radiology Critical Findings. Message ID [id number]."
[2018-05-22] MEDS ORDERED: PHYTONADIONE 10 MG in SODIUM CHLORIDE 0.9% 50 ML IVPB STA (15:41)
[2018-05-22] MEDS: LACTATED RINGERS 1,000 ML IV SCH (16:24)
[2018-05-22] MEDS ORDERED: WARFARIN 2.5 MG TAB PO SCH (18:00)
[2018-05-22 18:07] LABS: Glucose,Whole Blood 191 mg/dL (75-99)
[2018-05-22 20:40] LABS: Glucose,Whole Blood 90 mg/dL (75-99)
[2018-05-22] MEDS: ATORVASTATIN 40 MG TAB PO SCH (21:27)
--- NOTE | 2018-05-23 00:17 | P.HPIM ---
History of Present Illness H&P Date: 05/22/18 Chief Complaint: Persistent nausea History of present: This is a very pleasant 67-year-old patient, was chronic stable medical conditions include congestive heart failure with EF 60%, chronic cor pulmonale with secondary pulmonary hypertension, paroxysmal atrial fibrillation on Coumadin, hypothyroid thyroidism, SLEEP APNEA NOT USING CPAP, HYPERLIPIDEMIA, ON HOME OXYGEN 3 L, SECONDARY PULMONARY HYPERTENSION, CHRONIC KIDNEY DISEASE. PATIENT PRESENTED TO THE ER WITH 24 HOURS OF PERSISTENT VOMITING. SOME ABDOMINAL PAIN. NO FEVER OR CHILLS. AFTER SHE PRESENTED TO THE HOSPITAL SHE DID HAVE COUPLE OF BOWEL MOVEMENTS TO LOSE. PATIENT'S SUGARS ARE RUNNING REALLY HIGH IN 500S. THOUGH NONKETOTIC WAS STARTED ON IV FLUIDS. A COMPUTED TOMOGRAPHY SCAN OF THE ABDOMEN WAS ORDERED BY SURGERY AND I GOT A CALL BY THE [employer] THIS MORNING STATING THAT PATIENT IS A HIGH-GRADE SMALL BOWEL OBSTRUCTION. I CONVEYED THIS TO THE Veronique FROM DR. Lloyd's TEAM. Patient abdomen is a bit distended. No fever or chills. Feels tired. Review of systems: GEN.: Tired EYES: None HEENT: None NECK: None RESPIRATORY: Some shortness of breath CARDIOVASCULAR: None GASTROINTESTINAL: As above GENITOURINARY: None MUSCULOSKELETAL: Pain in the joints] LYMPHATICS: None HEMATOLOGICAL: None PSYCHIATRY: Anxious] NEUROLOGICAL: None Past medical history: Congestive heart failure from dust or dysfunction EF 60%, chronic cor pulmonale , paroxysmal atrial fibrillation, hypothyroidism, obstructive sleep apnea and does not use CPAP, morbid obesity, hyperlipidemia, diabetes mellitus type 2, chronic hypoxic respiratory failure on 3 L oxygen at home, secondary pulmonary hypertension, chronic kidney disease stage IIIB, aortic valve stenosis Social history: Lives at [facility]. Uses a walker outside the house. Manages her own things inside the house. No smoking or alcohol Family history: Skin and lung cancer mesothelioma Physical examination: VITAL SIGNS: 98.1, 85, 20, 132/57, 92% on 3 L GENERAL: Morbidly obese, BMI 52.9 well built, sitting up, anxious and tired. EYES: Pupils equal. Conjunctiva normal. HEENT: External appearance of nose and ears normal, oral cavity grossly normal. NECK: JVD unable to assess; masses not palpable. HEART: Distant sounds are normal; mild edema. LUNGS: Respiratory rate increased, distant breath sounds. ABDOMEN: Distended, Soft, minimally tender, liver spleen not palpable, no masses palpable. LYMPHATICS: No lymph nodes palpable in the axilla and neck. PSYCH: Alert and oriented x3; mood and affect anxiousl. NEUROLOGICAL: Cranial nerves grossly intact; no facial asymmetry, power and sensation grossly intact. Investigations: Reviewed in the context of the clinical picture White count 13 hemoglobin 16.1 INR 2 potassium 5.3 BUN 81 and creatinine 2.38 blood glucose 572, serum acetone negative Patient's creatinine was 1.37 on 12/27/2017 Assessment: -Acute small bowel obstruction, symptomatic, POA be followed by Dr. lloyd. Patient's vomiting has currently subsided -Chronic congestive heart failure from diastolic dysfunction EF 60% -Chronic cor pulmonale -Paroxysmal atrial fibrillation -Hypothyroidism -Obstructive sleep apnea and does not use CPAP -Morbid obesity BMI 52.9 -Hyperlipidemia -Diabetes mellitus type 2, uncontrolled with nonketotic hyperglycemia -Chronic hypoxic respiratory failure on 3 L of oxygen at home -Secondary pulmonary hypertension -Chronic kidney disease stage III be from nephrosclerosis -Acute renal failure, prerenal due to persistent vomiting -aortic valve stenosis Plan: Patient is put on IV fluids. Insulin was resumed at a lower dose. Accu-Cheks are being followed. Gen. surgery was consulted. Other home medications are resumed. Otherwise patient is bit hence nothing by mouth. If vomiting persists or comes back related NG tube. Did discuss with Veronique from general surgery. Past Medical History Past Medical History: Atrial Fibrillation, Asthma, Coronary Artery Disease (CAD) , Chest Pain / Angina, Heart Failure, Diabetes Mellitus, Hyperlipidemia, Hypertension, Thyroid Disorder Additional Past Medical History / Comment(s): Severe obstructive sleep apnea- does not tolerate CPAP-wears O2 at 3L/NC at hs, pulmonary htn, morbid obesity, history of cellulitis right lower extremity-healed, hypothyroidism. She also has aortic valve stenosis with a potential of bicuspid versus tricuspid aortic valve and a previous ejection fraction of 45%, lower extremity edema History of Any Multi-Drug Resistant Organisms: None Reported Past Surgical History: Appendectomy, Cholecystectomy, Heart Catheterization, Hernia Repair Additional Past Surgical History / Comment(s): 11/03/15 TIMOTHY with cardioversion, cardiac cath, ROSANGELA CATARACTS Past Anesthesia/Blood Transfusion Reactions: No Reported Reaction Past Psychological History: No Psychological Hx Reported Additional Psychological History / Comment(s): PT LIV[facility] AT [facility] IN [place],USES A WALKER WHEN OUTSIDE OF HER APT. PT DOES NOT HAVE A SCALE. Pt does not drive. She gets to app by daughter taking or using [employer] bus. She cooks and manages her own medication. She has home O2 and a glucose monitor. Smoking Status: Never smoker Past Alcohol Use History: None Reported Additional Past Alcohol Use History / Comment(s): SECOND HAND SMOKE EXPOSURE ALL HER LIFE Past Drug Use History: None Reported - Past Family History Mother Family Medical History: Cancer Additional Family Medical History / Comment(s): SKIN AND LUNG CANCER "MESOTHELIOMA" Father Family Medical History: CVA/TIA Medications and Allergies Home Medications Medication Instructions Recorded Confirmed Type Ferrous Sulfate [Feosol] 325 mg PO BID 07/14/14 05/21/18 History Ranitidine HCl 150 mg PO BID 07/14/14 05/21/18 History Atorvastatin [Lipitor] 40 mg PO HS 09/28/15 05/21/18 History Metoprolol Tartrate [Lopressor] 50 mg PO BID #60 tab 10/08/15 05/21/18 Rx Budesonide/Formoterol Fumarate 1 puff INHALATION RT-BID 04/02/16 05/21/18 History [Symbicort 160-4.5 Mcg Inhaler] Insulin Glulisine [Apidra Solostar] 12 unit SQ AC-TID 04/02/16 05/21/18 History Albuterol Inhaler [Ventolin Hfa 2 puff INHALATION RT-Q6H PRN 11/13/16 05/21/18 History Inhaler] Ipratropium-Albuterol Nebulize 3 ml INHALATION RT-TID PRN 01/13/17 05/21/18 History [Duoneb 0.5 mg-3 mg/3 ml Soln] Amiodarone [Cordarone] 100 mg PO DAILY 02/16/17 05/21/18 History Levothyroxine Sodium [Synthroid] 100 mcg PO DAILY 02/16/17 05/21/18 History Loratadine [Claritin] 10 mg PO DAILY 05/03/17 05/21/18 History Insulin Glargine [Lantus] 75 unit SQ HS 07/15/17 05/21/18 History Nystatin 100,000 Unit/gm Powd 1 applic TOPICAL TID 07/15/17 05/21/18 History [Mycostatin Powder] Warfarin [Coumadin] 5 mg PO SUMOTUTHFR 10/10/17 05/21/18 History Furosemide [Lasix] 60 mg PO DAILY #0 10/14/17 05/21/18 Rx Warfarin [Coumadin] 2.5 mg PO WESA 05/21/18 05/21/18 History Allergies Allergy/AdvReac Type Severity Reaction Status Date / Time No Known Allergies Allergy Verified 05/21/18 14:51 Physical Exam Vitals: Vital Signs Temp Pulse Pulse Resp BP BP Pulse Ox 05/22/18 07:00 98.1 F 93 24 133/61 93 L 05/21/18 21:00 98.1 F 85 20 132/57 92 L 05/21/18 17:46 71 18 111/63 94 L 05/21/18 16:01 81 18 120/65 95 Intake and Output 05/22/18 05/22/18 05/22/18 06:59 14:59 22:59 Intake Total 800 Balance 800 Intake: Intake, IV Titration 800 Amount Sodium Chloride 0.9% 1, 800 000 ml @ 100 mls/hr IV . Q10H AIDA Rx#:[id number] Other: Voiding Method Bedside Commode # Voids 3 # Bowel Movements 3 Weight 127.006 kg Results CBC & Chem 7: 05/22/18 09:36 05/22/18 13:15 Labs: Abnormal Lab Results - Last 24 Hours (Table) 05/21/18 05/21/18 05/21/18 Range/Units 14:47 14:47 14:47 WBC 13.0 H (3.8-10.6) k/uL RBC 5.65 H (3.80-5.40) m/uL Hgb 16.1 H (11.4-16.0) gm/dL Hct 51.8 H (34.0-46.0) % Neutrophils # 12.0 H (1.3-7.7) k/uL Neutrophils # (Manual) (1.3-7.7) k/uL Lymphocytes # 0.3 L (1.0-4.8) k/uL Metamyelocytes # (Man) (0) k/uL PT 19.6 H (9.0-12.0) sec INR 2.0 H (<1.2) Sodium 136 L (137-145) mmol/L Potassium 5.3 H (3.5-5.1) mmol/L Chloride 96 L (98-107) mmol/L BUN 81 H (7-17) mg/dL Creatinine 2.38 H (0.52-1.04) mg/dL Glucose 572 H* (74-99) mg/dL POC Glucose (mg/dL) (75-99) mg/dL Calcium (8.4-10.2) mg/dL Alkaline Phosphatase 203 H (38-126) U/L Total Protein (6.3-8.2) g/dL Albumin (3.5-5.0) g/dL Urine Appearance (Clear) Urine Protein (Negative) Urine Glucose (UA) (Negative) Ur Leukocyte Esterase (Negative) Ur Squamous Epith Cells (0-4) /hpf Urine Bacteria (None) /hpf Hyaline Casts (0-2) /lpf Urine Mucus (None) /hpf 05/21/18 05/21/18 05/21/18 Range/Units 16:54 17:14 21:20 WBC (3.8-10.6) k/uL RBC (3.80-5.40) m/uL Hgb (11.4-16.0) gm/dL Hct (34.0-46.0) % Neutrophils # (1.3-7.7) k/uL Neutrophils # (Manual) (1.3-7.7) k/uL Lymphocytes # (1.0-4.8) k/uL Metamyelocytes # (Man) (0) k/uL PT (9.0-12.0) sec INR (<1.2) Sodium (137-145) mmol/L Potassium (3.5-5.1) mmol/L Chloride (98-107) mmol/L BUN (7-17) mg/dL Creatinine (0.52-1.04) mg/dL Glucose (74-99) mg/dL POC Glucose (mg/dL) 509 H 361 H (75-99) mg/dL Calcium (8.4-10.2) mg/dL Alkaline Phosphatase (38-126) U/L Total Protein (6.3-8.2) g/dL Albumin (3.5-5.0) g/dL Urine Appearance Cloudy H (Clear) Urine Protein Trace H (Negative) Urine Glucose (UA) 3+ H (Negative) Ur Leukocyte Esterase Moderate H (Negative) Ur Squamous Epith Cells 5 H (0-4) /hpf Urine Bacteria Moderate H (None) /hpf Hyaline Casts 21 H (0-2) /lpf Urine Mucus Rare H (None) /hpf 05/22/18 05/22/18 05/22/18 Range/Units 07:51 09:36 09:36 WBC (3.8-10.6) k/uL RBC (3.80-5.40) m/uL Hgb (11.4-16.0) gm/dL Hct 46.9 H (34.0-46.0) % Neutrophils # (1.3-7.7) k/uL Neutrophils # (Manual) 8.20 H (1.3-7.7) k/uL Lymphocytes # (1.0-4.8) k/uL Metamyelocytes # (Man) 0.10 H (0) k/uL PT 21.2 H (9.0-12.0) sec INR 2.2 H (<1.2) Sodium (137-145) mmol/L Potassium (3.5-5.1) mmol/L Chloride (98-107) mmol/L BUN (7-17) mg/dL Creatinine (0.52-1.04) mg/dL Glucose (74-99) mg/dL POC Glucose (mg/dL) 185 H (75-99) mg/dL Calcium (8.4-10.2) mg/dL Alkaline Phosphatase (38-126) U/L Total Protein (6.3-8.2) g/dL Albumin (3.5-5.0) g/dL Urine Appearance (Clear) Urine Protein (Negative) Urine Glucose (UA) (Negative) Ur Leukocyte Esterase (Negative) Ur Squamous Epith Cells (0-4) /hpf Urine Bacteria (None) /hpf Hyaline Casts (0-2) /lpf Urine Mucus (None) /hpf 05/22/18 05/22/18 Range/Units 12:54 13:15 WBC (3.8-10.6) k/uL RBC (3.80-5.40) m/uL Hgb (11.4-16.0) gm/dL Hct (34.0-46.0) % Neutrophils # (1.3-7.7) k/uL Neutrophils # (Manual) (1.3-7.7) k/uL Lymphocytes # (1.0-4.8) k/uL Metamyelocytes # (Man) (0) k/uL PT (9.0-12.0) sec INR (<1.2) Sodium (137-145) mmol/L Potassium (3.5-5.1) mmol/L Chloride 108 H (98-107) mmol/L BUN 94 H (7-17) mg/dL Creatinine 2.14 H (0.52-1.04) mg/dL Glucose 196 H (74-99) mg/dL POC Glucose (mg/dL) 195 H (75-99) mg/dL Calcium 7.7 L (8.4-10.2) mg/dL Alkaline Phosphatase (38-126) U/L Total Protein 6.1 L (6.3-8.2) g/dL Albumin 3.2 L (3.5-5.0) g/dL Urine Appearance (Clear) Urine Protein (Negative) Urine Glucose (UA) (Negative) Ur Leukocyte Esterase (Negative) Ur Squamous Epith Cells (0-4) /hpf Urine Bacteria (None) /hpf Hyaline Casts (0-2) /lpf Urine Mucus (None) /hpf Thrombosis Risk Factor Assmnt - Choose All That Apply Any of the Below Risk Factors Present?: Yes Each Factor Represents 1 point: Obesity (BMI >25) Thrombosis Risk Factor Assessment Total Risk Factor Score: 1 Thrombosis Risk Factor Assessment Level: Low Risk
[2018-05-23] MEDS: INSULIN DETEMIR 100 UNIT/ML 10 ML VIAL SQ SCH ×2 (01:42→20:46)
[2018-05-23 03:20] LABS: Glucose,Whole Blood 100 mg/dL (75-99)
[2018-05-23] MEDS: LACTATED RINGERS 1,000 ML IV SCH ×3 (04:04→22:29)
[2018-05-23] MEDS: SODIUM CHLORIDE 0.9% 1,000 ML IV SCH ×2 (04:20→14:17)
[2018-05-23 07:41] LABS: Glucose,Whole Blood 101 mg/dL (75-99)
[2018-05-23] MEDS: INSULIN ASPART 100 UNIT/ML 1 ML 10 ML VIAL SQ SCH ×4 (08:33→20:46)
[2018-05-23] MEDS: METOPROLOL TARTRATE 50 MG TAB PO SCH ×2 (08:41→20:39)
[2018-05-23] MEDS: FAMOTIDINE 20 MG TAB PO SCH (08:42)
[2018-05-23] MEDS: AMIODARONE 100 MG TAB PO SCH (08:42)
[2018-05-23] MEDS: NYSTATIN 100,000 UNIT/GM POWD 15 GM TOPICAL SCH ×3 (08:43→20:44)
[2018-05-23 08:50] LABS: Basophils % (A) 0 %; Eosinophils # (A) 0.2 k/uL (0-0.7); Eosinophils % (A) 2 %; HGB 14.3 gm/dL (11.4-16.0); Hypochromasia Slight; Lymphocytes # (A) 1.2 k/uL (1.0-4.8); Lymphocytes % (A) 13 %; MCH 28.5 pg (25.0-35.0); MCHC 31.1 g/dL (31.0-37.0); MCV 91.5 fL (80.0-100.0); Mean Platelet Volume 7.4; Monocytes # (A) 0.5 k/uL (0-1.0); Monocytes % (A) 6 %; Neutrophils # (A) 7.5 k/uL (1.3-7.7); Neutrophils % (A) 79 %; Platelet Count 207 k/uL (150-450); RBC 5.03 m/uL (3.80-5.40); RDW 15.2 % (11.5-15.5); WBC 9.5 k/uL (3.8-10.6)
[2018-05-23 08:55] LABS: INR 1.2 (<1.2); Prothrombin Time 12.3 sec (9.0-12.0)
[2018-05-23 09:16] LABS: Albumin 3.1 g/dL (3.5-5.0); Calcium 8.2 mg/dL (8.4-10.2); Potassium 4.3 mmol/L (3.5-5.1); Total Protein 5.9 g/dL (6.3-8.2)
[2018-05-23] MEDS: SYMBICORT 160-4.5 MCG INHALER INHALATION SCH ×2 (09:19→20:08)
[2018-05-23] MEDS ORDERED: IV FLUID CONTINUATION 900 ML IV ONE (10:39)
[2018-05-23] MEDS: ONDANSETRON 4 MG/2 ML VIAL IVP PRN (11:05)
[2018-05-23 11:09] LABS: Glucose,Whole Blood 107 mg/dL (75-99)
[2018-05-23] MEDS ORDERED: ceFAZolin IN SWFI 2 GM/20 ML SYRINGE IVP ONE (11:10)
--- NOTE | 2018-05-23 11:28 | P.PN ---
Subjective Progress Note Date: 05/23/18 CHIEF COMPLAINT: brown foul smelling emesis HISTORY OF PRESENT ILLNESS: Patient examined this morning at the bedside. She is awake and alert. NG tube present with scant clear drainage. Denies nausea or vomiting. Coumadin was reversed yesterday. INR 1.2 this am. She is NPO for surgery today. PHYSICAL EXAM: VITAL SIGNS: Currently stable. GENERAL: Well-developed in no acute distress. HEENT: No sclera icterus. Extraocular movements grossly intact. Moist buccal mucosa. Head is atraumatic, normocephalic. Hears conversational speech. No nasal drainage. NECK: Supple without lymphadenopathy. CHEST: Non-labored respirations and equal bilateral excursions. CARDIOVASCULAR: Regular rate with regular rhythm. Palpable 2+ radial pulses. ABDOMEN: Obese. Soft. Nondistended. No pain or tenderness noted upon palpation. Positive bowel sounds 4 quadrants. NG tube present. MUSCULOSKELETAL: No clubbing, cyanosis or edema. NEUROLOGIC: No focal or lateralizing signs. Cranial nerves II through XII grossly intact. PSYCH: Appropriate affect. Alert and oriented to person, place and time. SKIN: Well perfused. Good skin turgor. IMAGING: Per radiologist dictation: 1. Acute abdominal series: Stomach is nearly completely fluid-filled. Mildly dilated small bowel across midabdomen. Gas can be seen within a non-dilated colon. Findings consistent with partial small bowel obstruction. 2. Computed tomography scan abdomen and pelvis: Findings suggestive high-grade partial small bowel obstruction due to supraumbilical hernia. Difficult to exclude incarceration. ASSESSMENT: 1. High-grade partial small bowel obstruction due to supraumbilical hernia 2. Nausea, vomiting, and loose stools 3. History of appendectomy and cholecystectomy PLAN: NPO. IV fluids. Patient scheduled for repair of umbilical hernia today with Dr. Vargas. Nurse practitioner note has been reviewed by physician. Signing provider agrees with the documented findings, assessment, and plan of care. Objective - Vital Signs Vital signs: Vital Signs Temp 97.7 F 05/23/18 10:54 Pulse 70 05/23/18 10:54 Resp 20 05/23/18 10:54 BP 131/64 05/23/18 10:54 Pulse Ox 97 05/23/18 10:54 Intake & Output 01/23/19 01/24/19 01/24/19 18:59 06:59 18:59 Weight 127.006 kg Other: Voiding Method Bedside Commode Bedside Commode # Voids 1 2 # Bowel Movements 0 - Labs CBC & Chem 7: 05/23/18 08:38 05/23/18 08:38 Labs: Abnormal Lab Results - Last 24 Hours (Table) 05/22/18 05/22/18 05/22/18 Range/Units 12:54 13:15 17:32 PT (9.0-12.0) sec INR (<1.2) Chloride 108 H (98-107) mmol/L BUN 94 H (7-17) mg/dL Creatinine 2.14 H (0.52-1.04) mg/dL Glucose 196 H (74-99) mg/dL POC Glucose (mg/dL) 195 H 191 H (75-99) mg/dL Calcium 7.7 L (8.4-10.2) mg/dL Total Protein 6.1 L (6.3-8.2) g/dL Albumin 3.2 L (3.5-5.0) g/dL 05/23/18 05/23/18 05/23/18 Range/Units 03:19 07:38 08:38 PT 12.3 H (9.0-12.0) sec INR 1.2 H (<1.2) Chloride (98-107) mmol/L BUN (7-17) mg/dL Creatinine (0.52-1.04) mg/dL Glucose (74-99) mg/dL POC Glucose (mg/dL) 100 H 101 H (75-99) mg/dL Calcium (8.4-10.2) mg/dL Total Protein (6.3-8.2) g/dL Albumin (3.5-5.0) g/dL 05/23/18 05/23/18 Range/Units 08:38 11:07 PT (9.0-12.0) sec INR (<1.2) Chloride 108 H (98-107) mmol/L BUN 65 H (7-17) mg/dL Creatinine 1.67 H (0.52-1.04) mg/dL Glucose 109 H (74-99) mg/dL POC Glucose (mg/dL) 107 H (75-99) mg/dL Calcium 8.2 L (8.4-10.2) mg/dL Total Protein 5.9 L (6.3-8.2) g/dL Albumin 3.1 L (3.5-5.0) g/dL
[2018-05-23] MEDS ORDERED: SUCCINYLCHOLINE CHLORIDE VIAL 200 MG/10 ML VIAL IV ONE (12:14)
[2018-05-23] MEDS ORDERED: PROPOFOL 10 MG/ML 20 ML VIAL IV ONE (12:14)
[2018-05-23] MEDS ORDERED: LIDOCAINE 1% INJ 10MG/ML (20 ML MDV) ONE (12:14)
[2018-05-23] MEDS ORDERED: ePHEDrine SULFATE/0.9% NACL/PF 50 MG/5 ML SYRINGE IV ONE (12:14)
[2018-05-23] MEDS ORDERED: BUPIVACAIN-EPI 0.25%-1:200,000 30 ML VIAL SQ ONE (12:36)
[2018-05-23] MEDS ORDERED: LACTATED RINGERS 1,000 ML IV ONE ×4 (13:11→13:16)
[2018-05-23] MEDS ORDERED: NALOXONE 0.4 MG/ML 1 ML VIAL IV PRN (13:16)
[2018-05-23] MEDS ORDERED: ONDANSETRON 4 MG/2 ML VIAL IVP PRN (13:16)
[2018-05-23] MEDS ORDERED: HYDROmorphone 0.5 MG/0.5 ML SYRINGE IVP PRN (13:16)
[2018-05-23] MEDS ORDERED: METOCLOPRAMIDE 5 MG/ML 2 ML VIAL IVP PRN (13:16)
--- NOTE | 2018-05-23 13:21 | P.OP ---
Date of Procedure: 05/23/18 Preoperative Diagnosis: Incarcerated incisional hernia Postoperative Diagnosis: Incarcerated incisional hernia Procedure(s) Performed: Open repair of incarcerated incisional hernia with mesh Partial omentectomy Anesthesia: MOISES Surgeon: Chalino Vargas Estimated Blood Loss (ml): 10 Pathology: other (Omentum) Condition: stable Disposition: PACU Description of Procedure: The patient's placed the operative table in supine position. She received general anesthesia. Her abdomen was prepped and draped usual sterile fashion. The patient had an incisional hernia located of above the umbilicus. The skin was incised in midline. The left cautery the subcutaneous tissue divided. The hernia sac was encountered. Hernia sac was opened. There was incarcerated omentum within the hernia sac. There is also incarcerated small bowel in the hernia sac. The small bowel appeared to be viable. The omentum was transected and sent to pathology. The bowel was reduced into the perineal cavity. The fascial defect was closed with [id number] Ethibond suture. A piece of Prolene mesh was placed over top the repair and secured with a secure strap anchoring device. A ANNIE drain was placed over top of the mesh and brought through separate stab incision Kaiser's fascia closed with 3-0 Vicryl. Skin was closed neel. Patient top procedure well and was sent to recovery room stable condition.
[2018-05-23 17:16] LABS: Glucose,Whole Blood 111 mg/dL (75-99)
[2018-05-23] MEDS: DOCUSATE 100 MG CAP PO SCH (20:39)
[2018-05-23] MEDS: HYDROcodone/APAP 5-325MG 1 EACH TAB PO PRN (20:39)
[2018-05-23] MEDS: ATORVASTATIN 40 MG TAB PO SCH (20:42)
[2018-05-23 20:45] LABS: Glucose,Whole Blood 203 mg/dL (75-99)
--- NOTE | 2018-05-23 22:33 | PN ---
PROGRESS NOTE DATE OF SERVICE: 05/23/2018 PRESENTING COMPLAINT: Abdominal pain. INTERVAL HISTORY: This patient presented with non-ketotic hyperglycemia and bowel obstruction. Patient went to the OR today, had surgical repair of incarcerated incisional hernia where omentum was present. Post procedure the patient has a drain in the site. Also has an NG tube in place. REVIEW OF SYSTEMS: Done for constitutional, cardiovascular, GI, pulmonary; relevant findings as above. CURRENT MEDICATIONS: Reviewed. They include DuoNeb. PHYSICAL EXAMINATION: Temperature 96.8, pulse 74, respiration 18, blood pressure 140/62, pulse ox 98% on 3 L. GENERAL APPEARANCE: Lying in bed, tired-appearing. EYES: Pupils equal. Conjunctivae normal. NECK: JVD unable to assess. Mass not palpable. RESPIRATORY: Effort increased. LUNGS: Distant breath sounds. CARDIOVASCULAR: Heart sounds distant. Minimal edema. ABDOMEN: Distended, soft. Dressing over the surgical site and a drain in place. ENT: NG tube in place. PSYCH: Alert and oriented x3. Mood and affect normal. INVESTIGATIONS: White count 9.5, hemoglobin 14.3, potassium 4.3, BUN 65, creatinine 1.67. ASSESSMENT: 1. Acute incarcerated ventral hernia, status post repair. 2. Chronic congestive heart failure from diastolic dysfunction, ejection fraction 60%. 3. Chronic cor pulmonale. 4. Paroxysmal atrial fibrillation. 5. Hypothyroidism. 6. Obstructive sleep apnea. Does not use CPAP. 7. Morbid obesity with body mass index of 52.9. 8. Hyperlipidemia. 9. Diabetes mellitus, type 2, uncontrolled, with non-ketotic hyperglycemia. 10.Chronic hypoxic respiratory failure, on 3 L oxygen at home. 11.Secondary pulmonary hypertension. 12.Chronic kidney disease, stage III, from nephrosclerosis. 13.Acute renal failure, prerenal, due to persistent vomiting. 14.Aortic valve stenosis. PLAN: Continue current medication and treatment plan. Accu-Cheks will be closely followed. Patient has an NG tube in place, has an abdominal drain in place. Keep a close eye on patient's electrolytes. Patient has also IV fluids running. MMODL / IJN: [id number] /
[2018-05-24] MEDS: LEVOTHYROXINE 100 MCG TAB PO SCH (06:01)
[2018-05-24 07:00] LABS: Glucose,Whole Blood 108 mg/dL (75-99)
[2018-05-24] MEDS: SYMBICORT 160-4.5 MCG INHALER INHALATION SCH ×2 (07:20→18:42)
[2018-05-24] MEDS: METOPROLOL TARTRATE 50 MG TAB PO SCH ×2 (08:26→20:35)
[2018-05-24] MEDS: HYDROcodone/APAP 5-325MG 1 EACH TAB PO PRN (08:26)
[2018-05-24] MEDS: FAMOTIDINE 20 MG TAB PO SCH (08:26)
[2018-05-24] MEDS: ENOXAPARIN 40 MG/0.4 ML SYRINGE SQ SCH (08:26)
[2018-05-24 08:27] LABS: Basophils % (A) 0 %; Eosinophils # (A) 0.3 k/uL (0-0.7); Eosinophils % (A) 3 %; HCT 43.4 % (34.0-46.0); HGB 13.9 gm/dL (11.4-16.0); Hypochromasia Slight; Lymphocytes # (A) 1.1 k/uL (1.0-4.8); Lymphocytes % (A) 10 %; MCH 29.6 pg (25.0-35.0); MCHC 32.1 g/dL (31.0-37.0); MCV 92.1 fL (80.0-100.0); Mean Platelet Volume 7.9; Monocytes # (A) 0.6 k/uL (0-1.0); Monocytes % (A) 5 %; Neutrophils # (A) 9.2 k/uL (1.3-7.7); Neutrophils % (A) 80 %; Platelet Count 200 k/uL (150-450); RBC 4.72 m/uL (3.80-5.40); RDW 15.2 % (11.5-15.5); WBC 11.5 k/uL (3.8-10.6)
[2018-05-24] MEDS: DOCUSATE 100 MG CAP PO SCH ×2 (08:27→20:35)
[2018-05-24] MEDS: INSULIN ASPART 100 UNIT/ML 1 ML 10 ML VIAL SQ SCH ×4 (08:27→20:54)
[2018-05-24] MEDS: LACTATED RINGERS 1,000 ML IV SCH ×2 (08:27→16:47)
[2018-05-24 08:30] LABS: Prothrombin Time 10.6 sec (9.0-12.0)
[2018-05-24 08:58] LABS: Albumin 3.1 g/dL (3.5-5.0); Calcium 8.4 mg/dL (8.4-10.2); Potassium 3.9 mmol/L (3.5-5.1); Total Bilirubin 0.8 mg/dL (0.2-1.3); Total Protein 5.9 g/dL (6.3-8.2)
[2018-05-24] MEDS: AMIODARONE 100 MG TAB PO SCH (10:52)
[2018-05-24] MEDS: NYSTATIN 100,000 UNIT/GM POWD 15 GM TOPICAL SCH ×3 (10:53→20:55)
--- NOTE | 2018-05-24 11:33 | P.PN ---
Subjective Progress Note Date: 05/24/18 CHIEF COMPLAINT: brown foul smelling emesis HISTORY OF PRESENT ILLNESS: Patient underwent open repair of incarcerated incisional hernia with mesh and partial omentectomy. POD #1. Patient examined this morning. She is awake and alert sitting up in chair. She does report she had some nausea this morning but it has since resolved. She denies emesis. She reports passing minimal flatus. Per nursing she did have a bowel movement yesterday. She denies abdominal pain. NG tube is intact, currently clamped. Vital signs are stable. She is afebrile. PHYSICAL EXAM: VITAL SIGNS: Currently stable. GENERAL: Well-developed in no acute distress. HEENT: No sclera icterus. Extraocular movements grossly intact. Moist buccal mucosa. Head is atraumatic, normocephalic. Hears conversational speech. No nasal drainage. NECK: Supple without lymphadenopathy. CHEST: Non-labored respirations and equal bilateral excursions. CARDIOVASCULAR: Regular rate with regular rhythm. Palpable 2+ radial pulses. ABDOMEN: Obese. Soft. Nondistended. NG tube present, clamped. Dressing with serosanguineous drainage noted. Abdominal binder intact. ANNIE drain with sanguinous drainage. MUSCULOSKELETAL: No clubbing, cyanosis or edema. NEUROLOGIC: No focal or lateralizing signs. Cranial nerves II through XII grossly intact. PSYCH: Appropriate affect. Alert and oriented to person, place and time. SKIN: Well perfused. Good skin turgor. ASSESSMENT: 1. High-grade partial small bowel obstruction, status post open repair of incarcerated incisional hernia with mesh and partial omentectomy 2. Nausea, vomiting, and loose stools 3. History of appendectomy and cholecystectomy PLAN: Discontinue NG tube. Continue clear liquids today as patient reports passing minimal flatus and had an episode of nausea this morning. Likely advance to full liquid tomorrow if patient continues to improve. Increase activity as tolerated. May resume Coumadin tomorrow night. Continue Lovenox until INR is therapeutic and then Lovenox may be discontinued. Nurse practitioner note has been reviewed by physician. Signing provider agrees with the documented findings, assessment, and plan of care. Objective - Vital Signs Vital signs: Vital Signs Temp 97.5 F L 05/24/18 06:22 Pulse 71 05/24/18 06:22 Resp 16 01/25/19 08:00 BP 114/73 05/24/18 06:22 Pulse Ox 94 L 05/24/18 06:22 Intake & Output 05/23/18 05/24/18 05/24/18 18:59 06:59 18:59 Intake Total 550 Output Total 10 60 Balance 540 -60 Weight 125.3 kg Intake: IV 550 Output: Drainage 60 Abdomen 60 Estimated Blood Loss 10 Other: Voiding Method Bedside Commode Bedside Commode # Voids 3 3 # Bowel Movements 2 - Labs CBC & Chem 7: 05/24/18 07:50 05/24/18 07:50 Labs: Abnormal Lab Results - Last 24 Hours (Table) 05/23/18 05/23/18 05/24/18 Range/Units 17:11 20:44 06:57 WBC (3.8-10.6) k/uL Neutrophils # (1.3-7.7) k/uL Carbon Dioxide (22-30) mmol/L BUN (7-17) mg/dL Creatinine (0.52-1.04) mg/dL POC Glucose (mg/dL) 111 H 203 H 108 H (75-99) mg/dL Total Protein (6.3-8.2) g/dL Albumin (3.5-5.0) g/dL 05/24/18 05/24/18 Range/Units 07:50 07:50 WBC 11.5 H (3.8-10.6) k/uL Neutrophils # 9.2 H (1.3-7.7) k/uL Carbon Dioxide 31 H (22-30) mmol/L BUN 38 H (7-17) mg/dL Creatinine 1.21 H (0.52-1.04) mg/dL POC Glucose (mg/dL) (75-99) mg/dL Total Protein 5.9 L (6.3-8.2) g/dL Albumin 3.1 L (3.5-5.0) g/dL
[2018-05-24 12:07] LABS: Glucose,Whole Blood 65 mg/dL (75-99)
[2018-05-24 12:21] LABS: Glucose,Whole Blood 87 mg/dL (75-99)
[2018-05-24 16:59] LABS: Glucose,Whole Blood 214 mg/dL (75-99)
[2018-05-24 20:30] LABS: Glucose,Whole Blood 92 mg/dL (75-99)
[2018-05-24] MEDS: ATORVASTATIN 40 MG TAB PO SCH (20:34)
[2018-05-24] MEDS: INSULIN DETEMIR 100 UNIT/ML 10 ML VIAL SQ SCH (23:00)
--- NOTE | 2018-05-24 23:01 | PN ---
PROGRESS NOTE DATE OF SERVICE: 05/24/2018. PRESENTING COMPLAINT: Followup obstruction. INTERVAL HISTORY: Patient presented with nonketotic hyperglycemia and incarcerated ventral hernia, status post surgery for the same. NG tube was discontinued this morning. Started on clear liquids. Abdominal pain is better. Sitting up on a chair, looks more cheerful. REVIEW OF SYSTEMS: Done for constitutional, cardiovascular, GI, pulmonary; relevant findings as above. Has not passed any flatus. CURRENT MEDICATIONS: Reviewed, that include IV fluids. PHYSICAL EXAMINATION: VITAL SIGNS: Temperature 97, pulse 56, respiratory rate 18, blood pressure 154/84, pulse ox 94 percent on room air. GENERAL APPEARANCE: Sitting up in chair, awake. EYES: Pupils equal. Conjunctiva normal. NECK: JVD not raised. Mass not palpable. Respiratory effort normal. LUNGS: Decreased breath sounds. CARDIOVASCULAR: Heart sounds distant. Minimal edema. ABDOMEN: Distended, soft. Dressing over the surgical site. Drain in place. PSYCHIATRY: Alert and oriented x3. Mood and affect normal. INVESTIGATIONS: White count 9.5, hemoglobin 13.9, BUN 38, creatinine 1.21. Accu-Cheks 65 and 87. ASSESSMENT: 1. Acute incarcerated ventral hernia status post repair with ANNIE drain in place. 2. Chronic congestive heart failure from diastolic dysfunction, EF 60%. 3. Chronic cor pulmonale. 4. Paroxysmal atrial fibrillation. 5. Hypothyroidism. 6. Gastroesophageal reflux disease. 7. Obstructive sleep apnea does not use CPAP. 8. Morbid obesity, BMI 32.9. 9. Hyperlipidemia. 10.Diabetes mellitus type 2 uncontrolled with nonketotic hyperglycemia and hypoglycemia. 11.Chronic hypoxic respiratory failure on 3 L oxygen at home. 12.Secondary pulmonary hypertension. 13.Chronic kidney disease stage III from nephrosclerosis. 14.Acute renal failure prerenal due to persistent vomiting, improving. 15.Aortic valve stenosis. PLAN: Patient is started on clear liquids. Accu-Cheks to be followed. Hopefully the sugar will build up as patient's diet is advanced. Keep a close eye on the Accu-Cheks and follow. MMODL / IJN: [id number] /
[2018-05-25] MEDS: LACTATED RINGERS 1,000 ML IV SCH ×2 (05:01→23:32)
[2018-05-25] MEDS: LEVOTHYROXINE 100 MCG TAB PO SCH (05:03)
[2018-05-25 07:14] LABS: Glucose,Whole Blood 101 mg/dL (75-99)
[2018-05-25] MEDS: INSULIN ASPART 100 UNIT/ML 1 ML 10 ML VIAL SQ SCH ×4 (07:31→22:24)
[2018-05-25] MEDS: SYMBICORT 160-4.5 MCG INHALER INHALATION SCH ×2 (08:29→22:45)
[2018-05-25] MEDS: AMIODARONE 100 MG TAB PO SCH (09:40)
[2018-05-25] MEDS: FAMOTIDINE 20 MG TAB PO SCH (09:40)
[2018-05-25] MEDS: METOPROLOL TARTRATE 50 MG TAB PO SCH ×2 (09:40→22:23)
[2018-05-25] MEDS: DOCUSATE 100 MG CAP PO SCH ×2 (09:40→22:24)
[2018-05-25] MEDS: ENOXAPARIN 40 MG/0.4 ML SYRINGE SQ SCH (09:40)
[2018-05-25] MEDS: NYSTATIN 100,000 UNIT/GM POWD 15 GM TOPICAL SCH ×3 (09:41→22:24)
--- NOTE | 2018-05-25 11:53 | P.PN ---
Progress Note - Text Progress Note Date: 05/25/18 The patient resting comfortably in her bed. She has minimal complaint pain. On exam her vital signs are stable. Her abdomen soft. Incision site is clean dry and intact. Status post repair of incarcerated incisional hernia. Patient will be discharged home per medicine. She'll follow myself in one week.
[2018-05-25 12:04] LABS: Glucose,Whole Blood 155 mg/dL (75-99)
[2018-05-25 18:47] LABS: Glucose,Whole Blood 158 mg/dL (75-99)
[2018-05-25 21:18] LABS: Glucose,Whole Blood 208 mg/dL (75-99)
--- NOTE | 2018-05-25 21:21 | PN ---
PROGRESS NOTE DATE OF SERVICE: May 25, 2018. PRESENTING COMPLAINT: Abdominal surgery. INTERVAL HISTORY: Patient presented with nonketotic hyperglycemia incarcerated ventral hernia, status post surgery, doing well, status post NG tube. Sparse flatus. Did tolerate a full liquid diet. Sugars are doing better. The patient's daughter is visiting. Sitting up in a chair. REVIEW OF SYSTEMS: Done for constitutional, cardiovascular, GI, pulmonary, relevant findings as above. CURRENT MEDICATIONS: Reviewed that include lactated Ringer's, IV fluids. PHYSICAL EXAMINATION: VITAL SIGNS: Temperature 97.6. Pulse 70. Respiratory 24, blood pressure 147/75, pulse ox 94% on 3 L. GENERAL APPEARANCE: Sitting in a chair. Awake. EYES: Pupils are equal. Conjunctivae normal. NECK: JVD not raised. Mass not palpable. RESPIRATORY: Effort normal. LUNGS: Decreased breath sounds. CARDIOVASCULAR: Heart sounds distant. Minimal edema. ABDOMEN: Distended, soft. Liver and spleen not palpable. Dressing over the surgical site. PSYCH: Alert and oriented times three. Mood and affect normal. INVESTIGATIONS: Accu-Cheks 101, 155, 158. ASSESSMENT: 1. Acute incarcerated ventral hernia, status post repair with ANNIE drain. 2. Chronic congestive heart failure from diastolic dysfunction EF 60%. 3. Chronic cor pulmonale. 4. Paroxysmal atrial fibrillation. 5. Hypothyroidism. 6. Gastroesophageal reflux disease. 7. Obstructive sleep apnea does not use CPAP. 8. Morbid obesity BMI 52.9. 9. Hyperlipidemia. 10.Diabetes mellitus type 2 uncontrolled with nonketotic hyperglycemia and hypoglycemia. 11.Chronic hypoxic respiratory failure on 3 L oxygen at home. 12.Secondary pulmonary hypertension. 13.Chronic kidney disease stage 3 from nephrosclerosis. 14.Acute renal failure prerenal due to persistent vomiting, improved. 15.Aortic valve stenosis. PLAN: Patient is doing much better. Did tolerate a full liquid diet. Surgery Dr. Chalino Vargas earlier today did sign off. We will advance the patient to carbohydrate consistent diet. If remains stable, sugars still reasonable, patient should be able to be discharged home tomorrow. MMODL / IJN: [id number] /
[2018-05-25] MEDS: INSULIN DETEMIR 100 UNIT/ML 10 ML VIAL SQ SCH (21:30)
[2018-05-25] MEDS: ATORVASTATIN 40 MG TAB PO SCH (22:24)
[2018-05-26 04:46] LABS: Prothrombin Time 10.4 sec (9.0-12.0)
[2018-05-26 05:17] LABS: Basophils % (A) 0 %; Eosinophils # (A) 0.3 k/uL (0-0.7); Eosinophils % (A) 3 %; HCT 43.7 % (34.0-46.0); HGB 13.8 gm/dL (11.4-16.0); Hypochromasia Slight; Lymphocytes # (A) 1.5 k/uL (1.0-4.8); Lymphocytes % (A) 16 %; MCH 29.1 pg (25.0-35.0); MCHC 31.5 g/dL (31.0-37.0); MCV 92.2 fL (80.0-100.0); Monocytes # (A) 0.5 k/uL (0-1.0); Monocytes % (A) 6 %; Neutrophils # (A) 6.7 k/uL (1.3-7.7); Neutrophils % (A) 73 %; Platelet Count 179 k/uL (150-450); RBC 4.74 m/uL (3.80-5.40); WBC 9.2 k/uL (3.8-10.6)
[2018-05-26] MEDS: LEVOTHYROXINE 100 MCG TAB PO SCH (05:59)
[2018-05-26 07:38] LABS: Glucose,Whole Blood 148 mg/dL (75-99)
[2018-05-26] MEDS: SYMBICORT 160-4.5 MCG INHALER INHALATION SCH ×2 (07:45→20:10)
[2018-05-26] MEDS: METOPROLOL TARTRATE 50 MG TAB PO SCH ×2 (07:59→21:38)
[2018-05-26] MEDS: FAMOTIDINE 20 MG TAB PO SCH (07:59)
[2018-05-26] MEDS: INSULIN ASPART 100 UNIT/ML 1 ML 10 ML VIAL SQ SCH ×4 (08:00→21:39)
[2018-05-26] MEDS: DOCUSATE 100 MG CAP PO SCH ×2 (08:00→21:39)
[2018-05-26] MEDS: NYSTATIN 100,000 UNIT/GM POWD 15 GM TOPICAL SCH ×3 (08:01→21:39)
[2018-05-26] MEDS: ENOXAPARIN 40 MG/0.4 ML SYRINGE SQ SCH (08:01)
[2018-05-26] MEDS: AMIODARONE 100 MG TAB PO SCH (08:03)
[2018-05-26 10:32] LABS: INR 0.9 (<1.2); Prothrombin Time 10.1 sec (9.0-12.0)
[2018-05-26 10:42] LABS: Calcium 8.5 mg/dL (8.4-10.2); Potassium 4.6 mmol/L (3.5-5.1)
[2018-05-26 11:32] LABS: Calcium 8.2 mg/dL (8.4-10.2); Potassium 4.7 mmol/L (3.5-5.1)
[2018-05-26 11:41] LABS: Glucose,Whole Blood 203 mg/dL (75-99)
[2018-05-26 16:52] LABS: Glucose,Whole Blood 238 mg/dL (75-99)
[2018-05-26] MEDS ORDERED: WARFARIN 5 MG TAB PO ONE (18:00)
[2018-05-26 20:38] LABS: Glucose,Whole Blood 243 mg/dL (75-99)
[2018-05-26] MEDS: LACTATED RINGERS 1,000 ML IV SCH (21:38)
[2018-05-26] MEDS: ATORVASTATIN 40 MG TAB PO SCH (21:39)
[2018-05-26] MEDS: INSULIN DETEMIR 100 UNIT/ML 10 ML VIAL SQ SCH (21:39)
--- NOTE | 2018-05-26 23:22 | PN ---
PROGRESS NOTE DATE OF SERVICE: 05/26/2018 PRESENTING COMPLAINT: Abdominal surgery. INTERVAL HISTORY: Patient presented with nonketotic hyperglycemia and incarcerated ventral hernia status post surgery. Did tolerate a regular diet. Could pass flatus. Overall feeling better. Has a drain in place, being followed by surgery. REVIEW OF SYSTEMS: Done for constitutional, cardiovascular, GI, pulmonary, relevant findings as above. CURRENT MEDICATIONS: Reviewed that include lactated Ringer's. PHYSICAL EXAMINATION: VITAL SIGNS: Temperature 96.8, pulse 64, respiratory 20, blood pressure 146/83. Pulse ox 97% on room air. GENERAL APPEARANCE: Sitting up in a chair. Awake. EYES: Pupils equal. Conjunctivae normal. NECK: JVD not raised. Mass not palpable. RESPIRATORY: Effort normal. LUNGS: Slightly decreased breath sounds. CARDIOVASCULAR: Heart sounds distant. Minimal edema. ABDOMEN: Distended, soft. Liver and spleen not palpable. Drain is present. PSYCHIATRY: Alert and oriented x3. Mood and affect normal. INVESTIGATIONS: Potassium 4.6. BUN and creatinine normal. Accu-Cheks are noted. ASSESSMENT: 1. Acute incarcerated ventral hernia status post repair with ANNIE drain in place. 2. Chronic congestive heart failure from diastolic dysfunction. EF 60%. 3. Chronic cor pulmonale. 4. Paroxysmal atrial fibrillation. 5. Hypothyroidism. 6. Gastroesophageal reflux disease. 7. Obstructive sleep apnea does not use CPAP. 8. Morbid obesity BMI 52.9. 9. Hyperlipidemia. 10.Diabetes mellitus type 2, uncontrolled with nonketotic hyperglycemia on presentation and hypoglycemia. 11.Chronic hypoxic respiratory failure on 3 L oxygen at home. 12.Secondary pulmonary hypertension. 13.Chronic kidney stage 3 from nephrosclerosis. 14.Acute renal failure prerenal due to persistent vomiting, improved. 15.Aortic valve stenosis. PLAN: Patient continues to improve. Diet has been advanced to regular diet. The patient should be able to go home tomorrow. MMODL / IJN: [id number] /
[2018-05-27] MEDS: LEVOTHYROXINE 100 MCG TAB PO SCH (06:05)
[2018-05-27 06:11] VITALS: BP 166/83; PULSE 70; RESP 16; TEMP 97.5
[2018-05-27 07:14] LABS: Glucose,Whole Blood 194 mg/dL (75-99)
[2018-05-27] MEDS: METOPROLOL TARTRATE 50 MG TAB PO SCH (07:34)
[2018-05-27] MEDS: FAMOTIDINE 20 MG TAB PO SCH (07:34)
[2018-05-27] MEDS: DOCUSATE 100 MG CAP PO SCH (07:34)
[2018-05-27] MEDS: AMIODARONE 100 MG TAB PO SCH (07:35)
[2018-05-27] MEDS: INSULIN ASPART 100 UNIT/ML 1 ML 10 ML VIAL SQ SCH ×2 (07:35→12:46)
[2018-05-27] MEDS: ENOXAPARIN 40 MG/0.4 ML SYRINGE SQ SCH (07:35)
[2018-05-27] MEDS: NYSTATIN 100,000 UNIT/GM POWD 15 GM TOPICAL SCH ×2 (07:38→14:53)
[2018-05-27] MEDS: SYMBICORT 160-4.5 MCG INHALER INHALATION SCH (07:41)
[2018-05-27 09:28] LABS: INR 0.9 (<1.2); Prothrombin Time 9.9 sec (9.0-12.0)
[2018-05-27 09:45] LABS: Calcium 8.8 mg/dL (8.4-10.2); Potassium 4.6 mmol/L (3.5-5.1)
[2018-05-27 12:31] LABS: Glucose,Whole Blood 160 mg/dL (75-99)
[2018-05-27] MEDS ORDERED: HYDROmorphone 2 MG TAB PO PRN (12:49)
[2018-05-27] MEDS ORDERED: WARFARIN 5 MG TAB PO ONE (18:00)
--- NOTE | 2018-05-28 14:13 | CDI ---
Documentation Clarification Form Date: 05/28/18 From: Latanya Carter Phone: If you have a question regarding this query, please contact America Ward at [phone] between 8am and 5pm. Admit Date: 05/21/2018 4:43:00 PM Patient Name: Bindu Nichols Visit Number: [id number] Discharge Date: 05/27/2018 4:33:00 PM ATTENTION: The Clinical Documentation Specialists (CDI) and [facility] Coding Staff appreciate your assistance in clarifying documentation. Please respond to the clarification below the line at the bottom and electronically sign. The CDI & [facility] Coding staff will review the response and follow-up if needed. Please note: Queries are made part of the Legal Health Record. If you have any questions, please contact the author of this message via ITS. Dr. Jason Mancuso Conflicting documentation has been found in the medical record: Ventral hernia is documented in your 05/23 - 05/26 progress notes. Incisional hernia is documented in the Op Note, your 05/23 progress note, Veronique Galvez's progress note and in Dr. Vargas's 05/25 progress note. History/Risk Factors: Patient was admitted with partial bowel obstruction and found to have a hernia. Clinical Indicators: Loose stools, nausea and vomiting. 1 episode of emesis that was brown in color and foul smelling. Treatment: Open repair of hernia with mesh and partial omentectomy. In your opinion, what is the most clinically appropriate diagnosis for this patient? Ventral Hernia Incisional Hernia Other Hernia (please specify): Other explanation of clinical findings Unable to determine (no explanation for clinical findings) incarcerated incisional hernia MTDD
--- NOTE | 2018-05-29 19:00 | DS ---
DISCHARGE SUMMARY DATE OF ADMISSION: 05/21/2018 DATE OF DISCHARGE: 05/27/2018 FINAL DIAGNOSES: 1. Acute incarcerated incisional abdominal hernia, status post repair with a ANNIE drain. 2. Chronic congestive heart failure from diastolic dysfunction, ejection fraction 60%. 3. Chronic cor pulmonale. 4. Paroxysmal atrial fibrillation. 5. Hypothyroidism. 6. Gastroesophageal reflux disease. 7. Obstructive sleep apnea. Does not use CPAP. 8. Morbid obesity with body mass index of 52.9. 9. Hyperlipidemia. 10.Diabetes mellitus, type 2, uncontrolled, with non-ketotic hyperglycemia, POA and hypoglycemia. 11.Chronic hypoxic respiratory failure, on 3 L oxygen at home. 12.Secondary pulmonary hypertension. 13.Chronic kidney disease, stage III, from nephrosclerosis. 14.Acute renal failure, prerenal, due to persistent vomiting, improved. 15.Aortic valve stenosis. HOSPITAL COURSE: This pleasant lady presented with nausea and vomiting, found to have incarcerated incisional hernia, taken to surgery by Dr. Vargas, had a ANNIE drain. She will be going home with the same. Overall doing better, tolerating a diet. Sugars had gone up and down during the hospital stay. Doing much better. PHYSICAL EXAMINATION: VITAL SIGNS: Temperature 97.5, pulse 70, respiration 16, blood pressure 166/83, pulse ox 91% on room air. ABDOMEN: Soft. Minimal tenderness. Bowel sounds are present. ANNIE drain in place. INVESTIGATIONS: Potassium 4.6, BUN 15, creatinine 1.04. CONSULTATION: Dr. Vargas from General Surgery. DISCHARGE MEDICATIONS: 1. Ferrous sulfate 325 mg p.o. b.i.d. 2. Zantac 150 mg b.i.d. 3. Lipitor 40 mg p.o. at bedtime. 4. Lopressor 50 mg b.i.d. 5. Symbicort 160/4.5 one puff b.i.d. 6. Apidra 12 units before meals t.i.d. 7. Ventolin HFA 2 puffs q.6 p.r.n. 8. DuoNeb t.i.d. p.r.n. 9. Amiodarone 100 mg p.o. daily. 10.Synthroid 100 mcg p.o. daily. 11.Insulin Lantus 25 units subcutaneously at bedtime. 12.Mycostatin 1 application topically t.i.d. 13.Coumadin 5 mg p.o. on Sunday, Sunday, Sunday, , Sunday. 14.Lasix 60 mg p.o. daily. 15.Coumadin 2.5 mg on Sunday and Sunday. 16.Colace 100 mg b.i.d. 17.[place] 7.5 one tablet q.4 p.r.n.; [address] Vargas. Follow up with Dr. Quan in 3 days. Follow up with Dr. Vargas on 06/04/2018. Postoperative instructions per Dr. Vargas. MMODL / IJN: [id number] /
== END 2018-05-27 16:33 | disposition home health service (06) | DRG 354 ==
LOC: EC 14:29 → 4MS4W 16:43
PROVIDERS: ADMIT Hospitalist; ATTEND Hospitalist
PROC: 0DBU0ZZ Excision of Omentum, Open Approach (ICD-10-PCS; 2018-05-23)
PROC: 0WUF0JZ Supplement Abdominal Wall with Synthetic Substitute, Open Approach (ICD-10-PCS; principal; 2018-05-23 09:45)
DX: K43.0 Incisional hernia with obstruction, without gangrene (principal); I13.0 Hypertensive heart and chronic kidney disease with heart failure and stage 1 through stage 4 chronic kidney disease, or unspecified chronic kidney disease; I50.32 Chronic diastolic (congestive) heart failure; J96.11 Chronic respiratory failure with hypoxia; N17.9 Acute kidney failure, unspecified; Z68.43 Body mass index [BMI] 50.0-59.9, adult; I48.0 Paroxysmal atrial fibrillation; E11.22 Type 2 diabetes mellitus with diabetic chronic kidney disease; E11.65 Type 2 diabetes mellitus with hyperglycemia; E11.649 Type 2 diabetes mellitus with hypoglycemia without coma; E66.01 Morbid (severe) obesity due to excess calories; I27.29 Other secondary pulmonary hypertension; E03.9 Hypothyroidism, unspecified; E78.5 Hyperlipidemia, unspecified; E86.0 Dehydration; G47.33 Obstructive sleep apnea (adult) (pediatric); I25.10 Atherosclerotic heart disease of native coronary artery without angina pectoris; I35.0 Nonrheumatic aortic (valve) stenosis; J45.909 Unspecified asthma, uncomplicated; K21.9 Gastro-esophageal reflux disease without esophagitis; N18.3 Chronic kidney disease, stage 3 (moderate); Z77.22 Contact with and (suspected) exposure to environmental tobacco smoke (acute) (chronic); Z79.01 Long term (current) use of anticoagulants; Z79.4 Long term (current) use of insulin; Z79.51 Long term (current) use of inhaled steroids; Z79.890 Hormone replacement therapy; Z79.899 Other long term (current) drug therapy; Z90.49 Acquired absence of other specified parts of digestive tract; Z98.42 Cataract extraction status, left eye; Z98.41 Cataract extraction status, right eye; Z96.1 Presence of intraocular lens; Z80.1 Family history of malignant neoplasm of trachea, bronchus and lung; Z80.8 Family history of malignant neoplasm of other organs or systems; Z82.3 Family history of stroke
CPT/HCPCS: 36415; 74022; 74176; 80048; 80053; 81001; 82009; 82150; 83690; 85025; 85610; 86850; 86900; 86901; 88302; 94640; 96361; 96374; 99285

== ENCOUNTER 2018-07-26 16:48 | Emergency (ER) | payer MEDICARE, OTHER ==
[2018-07-26 16:54] VITALS: BP 151/70; PULSE 66; RESP 18; TEMP 98.9
--- NOTE | 2018-07-26 17:40 | ED ---
Eye Problem HPI - General Chief complaint: Eye Problems Stated complaint: pink eye Time Seen by Provider: 07/26/18 17:04 Source: patient, EMS Mode of arrival: EMS Limitations: no limitations - History of Present Illness Initial comments: This is a 67-year-old female the ER for evaluation of eye irritation. Patient is left eyelid irritation and drainage. States it is itching currently. No vision changes. No pain. No fevers. MD chief complaint: eye redness (Bilateral eye redness) -: hour(s) Onset Description: gradual Location: right eye, left eye, both eyes (Started in the left now is) Place: home If Injury: none Eye Symptoms: itching, discharge Severity: mild Severity scale (1-10): 2 Consistency: constant Associated Symptoms: none Treatments Prior to Arrival: none - Related Data Home Medications Medication Instructions Recorded Confirmed Ferrous Sulfate [Feosol] 325 mg PO BID 07/14/14 05/21/18 Ranitidine HCl 150 mg PO BID 07/14/14 05/21/18 Atorvastatin [Lipitor] 40 mg PO HS 09/28/15 05/21/18 Budesonide/Formoterol Fumarate 1 puff INHALATION RT-BID 04/02/16 05/21/18 [Symbicort 160-4.5 Mcg Inhaler] Insulin Glulisine [Apidra Solostar] 12 unit SQ AC-TID 04/02/16 05/21/18 Albuterol Inhaler [Ventolin Hfa 2 puff INHALATION RT-Q6H PRN 11/13/16 05/21/18 Inhaler] Ipratropium-Albuterol Nebulize 3 ml INHALATION RT-TID PRN 01/13/17 05/21/18 [Duoneb 0.5 mg-3 mg/3 ml Soln] Amiodarone [Cordarone] 100 mg PO DAILY 02/16/17 05/21/18 Levothyroxine Sodium [Synthroid] 100 mcg PO DAILY 02/16/17 05/21/18 Insulin Glargine [Lantus] 75 unit SQ HS 07/15/17 05/21/18 Nystatin 100,000 Unit/gm Powd 1 applic TOPICAL TID 07/15/17 05/21/18 [Mycostatin Powder] Warfarin [Coumadin] 5 mg PO SUMOTUTHFR 10/10/17 05/21/18 Warfarin [Coumadin] 2.5 mg PO WESA 05/21/18 05/21/18 Previous Rx's Medication Instructions Recorded Metoprolol Tartrate [Lopressor] 50 mg PO BID #60 tab 10/08/15 Furosemide [Lasix] 60 mg PO DAILY #0 10/14/17 Docusate [Colace] 100 mg PO BID #20 capsule 05/25/18 HYDROcodone/APAP 7.5-325MG [[place] 1 tab PO Q4H PRN 3 Days #18 tab 05/25/18 7.5-325] Sulfamethox-Tmp 800-160Mg [Bactrim 1 tab PO Q12HR #14 tab 07/26/18 DS 800-160 mg] Sulfamethoxazole/Trimethoprim 1 each PO BID #14 tablet 07/26/18 [Bactrim DS 800-160 mg] Allergies Allergy/AdvReac Type Severity Reaction Status Date / Time No Known Allergies Allergy Verified 05/21/18 14:51 Review of Systems ROS Statement: Those systems with pertinent positive or pertinent negative responses have been documented in the HPI. ROS Other: All systems not noted in ROS Statement are negative. Past Medical History Past Medical History: Atrial Fibrillation, Asthma, Coronary Artery Disease (CAD), Chest Pain / Angina, Heart Failure, Diabetes Mellitus, Hyperlipidemia, Hypertension, Thyroid Disorder Additional Past Medical History / Comment(s): Severe obstructive sleep apnea- does not tolerate CPAP-wears O2 at 3L/NC at hs, pulmonary htn, morbid obesity, history of cellulitis right lower extremity-healed, hypothyroidism. She also has aortic valve stenosis with a potential of bicuspid versus tricuspid aortic valve and a previous ejection fraction of 45%, lower extremity edema History of Any Multi-Drug Resistant Organisms: None Reported Past Surgical History: Appendectomy, Cholecystectomy, Heart Catheterization, Hernia Repair Additional Past Surgical History / Comment(s): 11/03/15 TIMOTHY with cardioversion, 10/06/14 cardiac cath, ROSANGELA CATARACTS Past Anesthesia/Blood Transfusion Reactions: No Reported Reaction Past Psychological History: No Psychological Hx Reported Smoking Status: Never smoker Past Alcohol Use History: None Reported Past Drug Use History: None Reported - Past Family History Mother Family Medical History: Cancer Additional Family Medical History / Comment(s): SKIN AND LUNG CANCER"MESOTHELIOMA" Father Family Medical History: CVA/TIA General Exam - General Exam Comments Initial Comments: Bilateral blepharitis and erythema on exam Limitations: no limitations General appearance: alert, in no apparent distress Head exam: Present: atraumatic, normocephalic, normal inspection Eye exam: Present: normal appearance, PERRL, EOMI. Absent: scleral icterus, conjunctival injection, periorbital swelling ENT exam: Present: normal exam, mucous membranes moist Neck exam: Present: normal inspection. Absent: tenderness, meningismus, lymphadenopathy Respiratory exam: Present: normal lung sounds bilaterally. Absent: respiratory distress, wheezes, rales, rhonchi, stridor Cardiovascular Exam: Present: regular rate, normal rhythm, normal heart sounds. Absent: systolic murmur, diastolic murmur, rubs, gallop, clicks GI/Abdominal exam: Present: soft, normal bowel sounds. Absent: distended, tenderness, guarding, rebound, rigid Extremities exam: Present: normal inspection, full ROM, normal capillary refill. Absent: tenderness, pedal edema, joint swelling, calf tenderness Back exam: Present: normal inspection Neurological exam: Present: alert, oriented X3, CN II-XII intact Psychiatric exam: Present: normal affect, normal mood Skin exam: Present: warm, dry, intact, normal color. Absent: rash Course Vital Signs 07/26/18 16:52 Temperature 98.9 F Pulse Rate 66 Respiratory 18 Rate Blood Pressure 151/70 O2 Sat by Pulse 94 L Oximetry Medical Decision Making - Medical Decision Making 67 female the ER for evaluation. She was essay for evaluation of eye irritation and redness. Patient does have blepharitis. Patient will be given antibiotics drops to use warm compresses and can be discharged Disposition Clinical Impression: Blepharitis of both eyes Disposition: HOME SELF-CARE Condition: Good Instructions (If sedation given, give patient instructions): Blepharitis (ED) Prescriptions: Sulfamethox-Tmp 800-160Mg [Bactrim DS 800-160 mg] 1 tab PO Q12HR #14 tab Sulfamethoxazole/Trimethoprim [Bactrim DS 800-160 mg] 1 each PO BID #14 tablet Is patient prescribed a controlled substance at d/c from ED?: No Referrals: Dontae Quan DO [Primary Care Provider] - 1-2 days
--- NOTE | 2018-07-27 08:13 | CDI ---
Documentation Clarification OP Dear Robert ASHBY, DO Please do addendum to ED report for missing HPI and Physical examination. Thank you, Christian Hernández [employer] Agent If you have any questions, please contact Bindery Helper at [phone] [facility]
== END 2018-07-26 17:44 | disposition home or self-care (01) ==
LOC: EC 16:48
DX: H01.006 Unspecified blepharitis left eye, unspecified eyelid (principal); H01.003 Unspecified blepharitis right eye, unspecified eyelid; I48.91 Unspecified atrial fibrillation; J45.909 Unspecified asthma, uncomplicated; I25.10 Atherosclerotic heart disease of native coronary artery without angina pectoris; I11.0 Hypertensive heart disease with heart failure; I50.9 Heart failure, unspecified; E11.9 Type 2 diabetes mellitus without complications; E78.5 Hyperlipidemia, unspecified; I27.20 Pulmonary hypertension, unspecified; E03.9 Hypothyroidism, unspecified; I35.0 Nonrheumatic aortic (valve) stenosis; G47.33 Obstructive sleep apnea (adult) (pediatric); E66.01 Morbid (severe) obesity due to excess calories; Z68.43 Body mass index [BMI] 50.0-59.9, adult; Z95.818 Presence of other cardiac implants and grafts; Z79.51 Long term (current) use of inhaled steroids; Z79.4 Long term (current) use of insulin; Z79.890 Hormone replacement therapy; Z79.01 Long term (current) use of anticoagulants; Z79.899 Other long term (current) drug therapy
CPT/HCPCS: 99283

== ENCOUNTER 2019-06-14 10:23 | Emergency (ER) | payer MEDICARE, OTHER ==
[2019-06-14 10:40] VITALS: TEMP 98.1
[2019-06-14] MEDS ORDERED: ONDANSETRON 4 MG/2 ML VIAL IVP STA (10:59)
[2019-06-14] MEDS ORDERED: SODIUM CHLORIDE 0.9% 500 ML 500 ML IV STA (10:59)
--- NOTE | 2019-06-14 11:07 | ED ---
Nausea/Vomiting/Diarrhea HPI - General Chief complaint: Nausea/Vomiting/Diarrhea Stated complaint: nausea Time Seen by Provider: 06/14/19 10:43 Source: patient, RN notes reviewed Mode of arrival: wheelchair Limitations: no limitations - History of Present Illness Initial comments: This a 68-year-old female presents emergency Department chief complaint of nausea. Patient has been ongoing nausea for several weeks. Patient states that she woke up with some generalized weakness which prior to the emergency Department. She denies chest pain, shortness breath, abdominal pain, diarrhea constipation. She has no dysuria no hematuria. She states that she has been started on new medications recently for her diabetes and for anxiety/depression. Patient states she was started on fluoxetine. Patient denies any fevers or chills she was admitted proximal month ago for pneumonia. Patient does admit that she's had some urinary frequency and slight odor. Patient saw her motor power connector yesterday with no acute changes. Patient was advised that she shou ld see a cell repairer secondary to her recent pneumonia. Patient states she woke up this morning felt weak states his blood sugar was 90 this morning. - Related Data Home Medications Medication Instructions Recorded Confirmed Atorvastatin [Lipitor] 40 mg PO HS 09/28/15 05/04/19 Budesonide/Formoterol Fumarate 1 puff INHALATION RT-BID 04/02/16 05/04/19 [Symbicort 160-4.5 Mcg Inhaler] Albuterol Inhaler [Ventolin Hfa 2 puff INHALATION RT-Q6H PRN 11/13/16 05/04/19 Inhaler] Ipratropium-Albuterol Nebulize 3 ml INHALATION RT-TID PRN 01/13/17 05/04/19 [Duoneb 0.5 mg-3 mg/3 ml Soln] Amiodarone [Cordarone] 100 mg PO DAILY 02/16/17 05/04/19 Levothyroxine Sodium [Synthroid] 100 mcg PO DAILY 02/16/17 05/04/19 Nystatin 100,000 Unit/gm Powd 1 applic TOPICAL DAILY PRN 07/15/17 05/04/19 [Mycostatin Powder] Warfarin [Coumadin] 5 mg PO SUMOTUTHFR 10/10/17 05/04/19 Warfarin [Coumadin] 2.5 mg PO WESA 05/21/18 05/04/19 Allopurinol [Zyloprim] 100 mg PO DAILY 05/04/19 05/04/19 Ergocalciferol (Vitamin D2) 50,000 unit PO Q7D 05/04/19 05/04/19 [Drisdol] Famotidine 40 mg PO DAILY 05/04/19 05/04/19 Furosemide [Lasix] 20 mg PO BID PRN 05/04/19 05/04/19 Furosemide [Lasix] 40 mg PO DAILY 05/04/19 05/04/19 Insulin Aspart [NovoLOG Flexpen] 12 units SQ TID 05/04/19 05/04/19 Insulin Degludec [Tresiba 75 units SQ HS 05/04/19 05/04/19 Flextouch U-200] Spironolactone 25 mg PO DAILY 05/04/19 05/04/19 Previous Rx's Medication Instructions Recorded Metoprolol Tartrate [Lopressor] 50 mg PO BID #60 tab 10/08/15 Docusate [Colace] 100 mg PO BID #20 capsule 05/25/18 Cefuroxime Axetil [Ceftin] 500 mg PO BID 3 Days #6 tab 05/09/19 predniSONE 0 mg PO DIRECTED #10 tab 05/09/19 Ondansetron Odt [Zofran Odt] 4 mg PO Q8HR PRN #14 tab 06/14/19 Allergies Allergy/AdvReac Type Severity Reaction Status Date / Time No Known Allergies Allergy Verified 06/14/19 10:39 Review of Systems ROS Statement: Those systems with pertinent positive or pertinent negative responses have been documented in the HPI. ROS Other: All systems not noted in ROS Statement are negative. Past Medical History Past Medical History: Atrial Fibrillation, Asthma, Coronary Artery Disease (CAD), Chest Pain / Angina, Heart Failure, Diabetes Mellitus, Hyperlipidemia, Hypertension, Thyroid Disorder Additional Past Medical History / Comment(s): Severe obstructive sleep apnea- does not tolerate CPAP-wears O2 at 3L/NC at hs, pulmonary htn, morbid obesity, history of cellulitis right lower extremity-healed, hypothyroidism. She also has aortic valve stenosis with a potential of bicuspid versus tricuspid aortic valve and a previous ejection fraction of 45%, lower extremity edema History of Any Multi-Drug Resistant Organisms: None Reported Past Surgical History: Appendectomy, Cholecystectomy, Heart Catheterization, Hernia Repair Additional Past Surgical History / Comment(s): 11/03/15 TIMOTHY with cardioversion, 10/06/14 cardiac cath, ROSANGELA CATARACTS Past Anesthesia/Blood Transfusion Reactions: No Reported Reaction Past Psychological History: No Psychological Hx Reported Smoking Status: Never smoker Past Alcohol Use History: None Reported Past Drug Use History: None Reported - Past Family History Mother Family Medical History: Cancer Additional Family Medical History / Comment(s): SKIN AND LUNG CANCER"MESOTHELIOMA" Father Family Medical History: CVA/TIA General Exam Limitations: no limitations General appearance: alert, in no apparent distress Head exam: Present: atraumatic, normocephalic, normal inspection Eye exam: Present: normal appearance, PERRL, EOMI. Absent: scleral icterus, conjunctival injection, periorbital swelling ENT exam: Present: normal exam, normal oropharynx, mucous membranes moist Neck exam: Present: normal inspection, full ROM. Absent: tenderness, meningismus, lymphadenopathy Respiratory exam: Present: normal lung sounds bilaterally. Absent: respiratory distress, wheezes, rales, rhonchi, stridor Cardiovascular Exam: Present: regular rate, normal rhythm, normal heart sounds. Absent: systolic murmur, diastolic murmur, rubs, gallop, clicks GI/Abdominal exam: Present: soft, normal bowel sounds. Absent: distended, tenderness, guarding, rebound, rigid Neurological exam: Present: alert, oriented X3, CN II-XII intact Skin exam: Present: warm, dry, intact, normal color. Absent: rash Course Vital Signs 06/14/19 06/14/19 06/14/19 10:37 10:39 11:21 Temperature 98.1 F Pulse Rate 62 62 Respiratory 16 20 20 Rate Blood Pressure 128/57 O2 Sat by Pulse 96 92 L Oximetry 06/14/19 06/14/19 06/14/19 11:30 11:39 11:40 Temperature Pulse Rate 61 Respiratory 18 18 Rate Blood Pressure 120/54 106/48 O2 Sat by Pulse 98 Oximetry 06/14/19 11:50 Temperature Pulse Rate Respiratory Rate Blood Pressure 106/48 O2 Sat by Pulse Oximetry Medical Decision Making - Medical Decision Making 68-year-old female presented for ongoing nausea which is been several months. There are no acute findings for her nausea though she is improved after IV fluids and Zofran. Patient's labs were reviewed there is mildly elevated lactic acidosis most likely from dehydration there is no clinical signs of infection urinalysis unremarkable chest x-ray does not show pneumonia patient is afebrile. Patient states after fluids and Zofran she feels greatly improved she feels comfortable with discharge and close follow-up return parameters were discussed. - Lab Data Result diagrams: 06/14/19 10:53 06/14/19 10:53 Lab Results 06/14/19 06/14/19 06/14/19 Range/Units 10:53 10:53 10:53 WBC 13.8 H (3.8-10.6) k/uL RBC 5.57 H (3.80-5.40) m/uL Hgb 15.4 (11.4-16.0) gm/dL Hct 47.7 H (34.0-46.0) % MCV 85.7 (80.0-100.0) fL MCH 27.6 (25.0-35.0) pg MCHC 32.2 (31.0-37.0) g/dL RDW 15.7 H (11.5-15.5) % Plt Count 318 (150-450) k/uL Neutrophils % 86 % Lymphocytes % 8 % Monocytes % 4 % Eosinophils % 1 % Basophils % 1 % Neutrophils # 11.9 H (1.3-7.7) k/uL Lymphocytes # 1.1 (1.0-4.8) k/uL Monocytes # 0.5 (0-1.0) k/uL Eosinophils # 0.1 (0-0.7) k/uL Basophils # 0.1 (0-0.2) k/uL PT (9.0-12.0) sec INR (<1.2) APTT (22.0-30.0) sec Sodium 136 L (137-145) mmol/L Potassium 4.7 (3.5-5.1) mmol/L Chloride 96 L (98-107) mmol/L Carbon Dioxide 26 (22-30) mmol/L Anion Gap 14 mmol/L BUN 29 H (7-17) mg/dL Creatinine 1.54 H (0.52-1.04) mg/dL Est GFR (CKD-EPI)AfAm 40 (>60 ml/min/1.73 sqM) Est GFR (CKD-EPI)NonAf 35 (>60 ml/min/1.73 sqM) Glucose 238 H (74-99) mg/dL Plasma Lactic Acid Pj 2.9 H* (0.7-2.0) mmol/L Calcium 9.3 (8.4-10.2) mg/dL Magnesium 2.0 (1.6-2.3) mg/dL Total Bilirubin 1.0 (0.2-1.3) mg/dL AST 46 H (14-36) U/L ALT 50 H (4-34) U/L Alkaline Phosphatase 152 H (38-126) U/L Creatine Kinase 132 (30-135) U/L Troponin I (0.000-0.034) ng/mL Total Protein 7.9 (6.3-8.2) g/dL Albumin 4.7 (3.5-5.0) g/dL Urine Color Urine Appearance (Clear) Urine pH (5.0-8.0) Ur Specific [place] (1.001-1.035) Urine Protein (Negative) Urine Glucose (UA) (Negative) Urine Ketones (Negative) Urine Blood (Negative) Urine Nitrite (Negative) Urine Bilirubin (Negative) Urine Urobilinogen (<2.0) mg/dL Ur Leukocyte Esterase (Negative) 06/14/19 06/14/19 06/14/19 Range/Units 10:53 10:53 10:53 WBC (3.8-10.6) k/uL RBC (3.80-5.40) m/uL Hgb (11.4-16.0) gm/dL Hct (34.0-46.0) % MCV (80.0-100.0) fL MCH (25.0-35.0) pg MCHC (31.0-37.0) g/dL RDW (11.5-15.5) % Plt Count (150-450) k/uL Neutrophils % % Lymphocytes % % Monocytes % % Eosinophils % % Basophils % % Neutrophils # (1.3-7.7) k/uL Lymphocytes # (1.0-4.8) k/uL Monocytes # (0-1.0) k/uL Eosinophils # (0-0.7) k/uL Basophils # (0-0.2) k/uL PT 27.7 H (9.0-12.0) sec INR 2.8 H (<1.2) APTT 40.3 H (22.0-30.0) sec Sodium (137-145) mmol/L Potassium (3.5-5.1) mmol/L Chloride (98-107) mmol/L Carbon Dioxide (22-30) mmol/L Anion Gap mmol/L BUN (7-17) mg/dL Creatinine (0.52-1.04) mg/dL Est GFR (CKD-EPI)AfAm (>60 ml/min/1.73 sqM) Est GFR (CKD-EPI)NonAf (>60 ml/min/1.73 sqM) Glucose (74-99) mg/dL Plasma Lactic Acid Pj (0.7-2.0) mmol/L Calcium (8.4-10.2) mg/dL Magnesium (1.6-2.3) mg/dL Total Bilirubin (0.2-1.3) mg/dL AST (14-36) U/L ALT (4-34) U/L Alkaline Phosphatase (38-126) U/L Creatine Kinase (30-135) U/L Troponin I 0.016 (0.000-0.034) ng/mL Total Protein (6.3-8.2) g/dL Albumin (3.5-5.0) g/dL Urine Color Colorless Urine Appearance Clear (Clear) Urine pH 6.0 (5.0-8.0) Ur Specific [place] 1.003 (1.001-1.035) Urine Protein Negative (Negative) Urine Glucose (UA) 4+ H (Negative) Urine Ketones Negative (Negative) Urine Blood Negative (Negative) Urine Nitrite Negative (Negative) Urine Bilirubin Negative (Negative) Urine Urobilinogen <2.0 (<2.0) mg/dL Ur Leukocyte Esterase Negative (Negative) Disposition Clinical Impression: Nausea, Dehydration, Generalized weakness Disposition: HOME SELF-CARE Condition: Stable Instructions (If sedation given, give patient instructions): Acute Nausea and Vomiting (ED) Additional Instructions: Please return to the Emergency Department if symptoms worsen or any other concerns. Prescriptions: Ondansetron Odt [Zofran Odt] 4 mg PO Q8HR PRN #14 tab PRN Reason: Nausea Is patient prescribed a controlled substance at d/c from ED?: No Referrals: Dontae Quan DO [Primary Care Provider] - 1-2 days Time of Disposition: 12:31
[2019-06-14 11:35] LABS: Appearance,Urine Clear (Clear); Bilirubin,Urine Negative (Negative); Blood,Urine Negative (Negative); Color,Urine Colorless; Glucose,Urine (UA) 4+ (Negative); Ketones,Urine Negative (Negative); Leukocyte Esterase,Urine Negative (Negative); Nitrite,Urine Negative (Negative); Protein,Urine Negative (Negative); Specific Gravity,Urine 1.003 (1.001-1.035); Urobilinogen,Urine <2.0 mg/dL (<2.0)
[2019-06-14 11:40] LABS: Albumin 4.7 g/dL (3.5-5.0); Basophils # (A) 0.1 k/uL (0-0.2); Basophils % (A) 1 %; Calcium 9.3 mg/dL (8.4-10.2); Eosinophils # (A) 0.1 k/uL (0-0.7); Eosinophils % (A) 1 %; HCT 47.7 % (34.0-46.0); HGB 15.4 gm/dL (11.4-16.0); INR 2.8 (<1.2); Lymphocytes # (A) 1.1 k/uL (1.0-4.8); Lymphocytes % (A) 8 %; MCH 27.6 pg (25.0-35.0); MCHC 32.2 g/dL (31.0-37.0); MCV 85.7 fL (80.0-100.0); Mean Platelet Volume 8.5; Monocytes # (A) 0.5 k/uL (0-1.0); Monocytes % (A) 4 %; Neutrophils # (A) 11.9 k/uL (1.3-7.7); Neutrophils % (A) 86 %; Platelet Count 318 k/uL (150-450); RBC 5.57 m/uL (3.80-5.40); RDW 15.7 % (11.5-15.5); Total Protein 7.9 g/dL (6.3-8.2); WBC 13.8 k/uL (3.8-10.6)
[2019-06-14 11:41] LABS: Partial Thromboplastin Time 40.3 sec (22.0-30.0); Potassium 4.7 mmol/L (3.5-5.1); Prothrombin Time 27.7 sec (9.0-12.0)
[2019-06-14] MEDS ORDERED: SODIUM CHLORIDE 0.9% 1,000 ML IV ONE (11:42)
--- NOTE | 2019-06-14 11:55 | XR ---
EXAMINATION TYPE: XR chest 2V DATE OF EXAM: 06/14/2019 HISTORY: Weakness. REFERENCE: Previous study dated 06/03/2019. FINDINGS: Heart is enlarged. The lungs are clear. Pleural spaces are clear. IMPRESSION: CARDIOMEGALY.
[2019-06-14 12:46] VITALS: BP 115/91; PULSE 62
[2019-06-14 12:50] VITALS: RESP 20
== END 2019-06-14 12:51 | disposition home or self-care (01) ==
LOC: EC 10:23
DX: E86.0 Dehydration (principal); R53.1 Weakness; R11.0 Nausea; R35.0 Frequency of micturition; E87.2 Acidosis; R82.998 Other abnormal findings in urine; I48.91 Unspecified atrial fibrillation; J45.909 Unspecified asthma, uncomplicated; I25.119 Atherosclerotic heart disease of native coronary artery with unspecified angina pectoris; I11.0 Hypertensive heart disease with heart failure; I50.9 Heart failure, unspecified; E11.9 Type 2 diabetes mellitus without complications; E78.5 Hyperlipidemia, unspecified; E03.9 Hypothyroidism, unspecified; G47.30 Sleep apnea, unspecified; F32.9 Major depressive disorder, single episode, unspecified; F41.9 Anxiety disorder, unspecified; Z79.01 Long term (current) use of anticoagulants; Z79.4 Long term (current) use of insulin; Z79.51 Long term (current) use of inhaled steroids; Z79.890 Hormone replacement therapy; Z79.899 Other long term (current) drug therapy; Z90.49 Acquired absence of other specified parts of digestive tract; Z87.01 Personal history of pneumonia (recurrent); Z99.81 Dependence on supplemental oxygen
CPT/HCPCS: 36415; 93005; 80053; 82550; 83605; 83735; 84484; 85025; 85610; 85730; 81003; 71046; 99284; 96374; 96361; J2405